=== PATIENT | male | born 1970 | race African-American/Black ===

== ENCOUNTER 2017-08-10 17:24 | Inpatient (IN) | payer OTHER ==
--- NOTE | 2017-08-10 17:39 | PDOC ---
Rapid Medical Evaluation Time Seen by Provider: 08/10/17 17:39 Medical Evaluation: 08/10/17 17:39 I have performed a brief in-person evaluation of this patient. The patient presents with a chief complaint of: R foot "feels like ice", hx of DM but ran out of meds, hasn't taken "for a while", denies SOB/CP/palpitations, Pertinent physical exam findings: decreased temp to R foot compared to L, +calf tenderness, DP non palpable to R ft I have ordered the following: labs, US The patient will proceed to the ED for further evaluation. Discharge Disposition - Diagnosis Right leg pain - Referrals - Patient Instructions - Post Discharge Activity
[2017-08-10 18:00] LABS: BASO % 1.2 % (0-2.0); EOS % 1.1 % (0-4.5); HEMATOCRIT 38.3 % (35.4-49); LYMPH % 34.9 % (8-40); MCH 26.8 pg (25.7-33.7); MCHC 34.1 g/dl (32.0-35.9); MEAN CELL VOLUME 78.8 fl (80-96); MEAN PLT VOLUME 7.6 fl (7.5-11.1); NEUT % 54.8 % (42.8-82.8); PLATELET COUNT 473 K/MM3 (134-434); RBC 4.86 M/mm3 (4.00-5.60); RDW 13.4 % (11.9-15.9); WHITE BLOOD COUNT 10.7 K/mm3 (4.0-10.0)
--- NOTE | 2017-08-10 18:25 | PDOC ---
History of Present Illness - General History Source: Patient Exam Limitations: No Limitations - History of Present Illness Initial Comments: 08/10/17 18:42 The patient is 47 year old male, with a significant past medical history of diabetes(noncompliant with medications) and CAD(s/p stents), who presents to the emergency department with changes in sensation to the right foot since earlier this afternoon. The patient reports his right foot has been increasingly cold, numb, and occasionally painful since around 12:00 today. Patient reports a history of diabetes, and states he has not been taking his medications for a while, because he ran out. Patient denies any chest pain, shortness of breath, diaphoresis, palpitations, lower extremity edema. He denies any fever or chills. He denies any recent trauma to the right foot. He denies any recent travel or sick contacts. Allergies: NKDA Past Surgical History: None reported Social History: Current everyday smoker. No ETOH or recreational drug use. PCP: Dr. Roy <Mabel Campos - Last Filed: 08/10/17 18:42> <Lorie Ruiz - Last Filed: 08/12/17 12:50> - General Chief Complaint: Pain Stated Complaint: RT LEG PAIN Time Seen by Provider: 08/10/17 17:39 Past History <Mabel Campos - Last Filed: 08/10/17 18:42> - Past Medical History COPD: No Diabetes: Yes - Suicide/Smoking/Psychosocial Hx Smoking History: Current every day smoker Have you smoked in the past 12 months: Yes Number of Cigarettes Smoked Daily: 3 Information on smoking cessation initiated: No <Lorie Ruiz - Last Filed: 08/12/17 12:50> - Past Medical History Allergies/Adverse Reactions: Allergies Allergy/AdvReac Type Severity Reaction Status Date / Time No Known Allergies Allergy Verified 08/10/17 17:40 Home Medications: Ambulatory Orders NK [No Known Home Medication] 08/10/17 Review of Systems - Review of Systems Able to Perform ROS?: Yes Comments:: 08/10/17 18:43 GENERAL/CONSTITUTIONAL: No fever or chills. No weakness. HEAD, EYES, EARS, NOSE AND THROAT: No change in vision. No ear pain or discharge. No sore throat. CARDIOVASCULAR: No chest pain or shortness of breath. RESPIRATORY: No cough, wheezing, or hemoptysis. GASTROINTESTINAL: No nausea, vomiting, diarrhea or constipation. GENITOURINARY: No dysuria, frequency, or change in urination. MUSCULOSKELETAL: Yes right foot numbness/coldness/pain. No joint or muscle swelling. No neck or back pain. SKIN: No rash NEUROLOGIC: No headache, vertigo, loss of consciousness, or change in strength/ sensation. ENDOCRINE: No increased thirst. No abnormal weight change. HEMATOLOGIC/LYMPHATIC: No anemia, easy bleeding, or history of blood clots. ALLERGIC/IMMUNOLOGIC: No hives or skin allergy. <Lavonne Camposomsierra - Last Filed: 08/10/17 18:42> *Physical Exam - Vital Signs Last Vital Signs Temp Pulse Resp BP Pulse Ox 98.4 F 121 H 17 159/102 99 08/10/17 17:40 08/10/17 17:40 08/10/17 17:40 08/10/17 17:40 08/10/17 17:40 <Mabel Campos - Last Filed: 08/10/17 18:42> - Vital Signs Last Vital Signs Temp Pulse Resp BP Pulse Ox 98.4 F 121 H 17 159/102 99 08/10/17 17:40 08/10/17 17:40 08/10/17 17:40 08/10/17 17:40 08/10/17 17:40 - Physical Exam Comments: GENERAL: Awake, alert, and fully oriented, in no acute distress HEAD: No signs of trauma EYES: PERRLA, EOMI, sclera anicteric, conjunctiva clear ENT: Auricles normal inspection, hearing grossly normal, nares patent, oropharynx clear without exudates. Moist mucosa NECK: Normal ROM, supple, no lymphadenopathy, JVD, or masses LUNGS: Breath sounds equal, clear to auscultation bilaterally. No wheezes, and no crackles HEART: Regular rate and rhythm, normal S1 and S2, no murmurs, rubs or gallops ABDOMEN: Soft, nontender, normoactive bowel sounds. No guarding, no rebound. No masses EXTREMITIES: R foot cool to palpation, thready DP pulse, normal cap refill. L foot warm, dec DP pulse. Normal range of motion, no edema. No clubbing or cyanosis. No cords,tenderness NEUROLOGICAL: Cranial nerves II through XII grossly intact. Normal speech, normal gait. Dec sensation to soles of feet B/L. SKIN: Warm, Dry, normal turgor, no rashes or lesions noted. <Lorie Ruiz - Last Filed: 08/12/17 12:50> ED Treatment Course - LABORATORY CBC & Chemistry Diagram: 08/10/17 17:51 08/10/17 17:51 - ADDITIONAL ORDERS Additional order review: Laboratory Results 08/10/17 17:51 Sodium 136 Potassium 4.1 Chloride 99 Carbon Dioxide 26 Anion Gap 11 BUN 14 Creatinine 1.2 Creat Clearance w eGFR > 60 Random Glucose 399 H* Calcium 9.7 Total Bilirubin 0.2 AST 8 L ALT 13 Alkaline Phosphatase 162 H Total Protein 8.0 Albumin 3.6 08/10/17 17:51 RBC 4.86 MCV 78.8 L MCHC 34.1 RDW 13.4 MPV 7.6 Neutrophils % 54.8 Lymphocytes % 34.9 Monocytes % 8.0 Eosinophils % 1.1 Basophils % 1.2 <Mabel Campos - Last Filed: 08/10/17 18:42> - LABORATORY CBC & Chemistry Diagram: 08/12/17 10:00 08/12/17 10:00 - ADDITIONAL ORDERS Additional order review: 08/10/17 17:51 RBC 4.86 MCV 78.8 L MCHC 34.1 RDW 13.4 MPV 7.6 Neutrophils % 54.8 Lymphocytes % 34.9 Monocytes % 8.0 Eosinophils % 1.1 Basophils % 1.2 <Lorie Ruiz - Last Filed: 08/12/17 12:50> Medical Decision Making - Medical Decision Making 08/10/17 19:[address] Obrien at 7pm shift change. Currently returning from vascular with report of arterial occlusion. Will start on heparin and consult with Dr. Chandler vascular surgery. <Lorie Ruiz - Last Filed: 08/12/17 12:50> *DC/Admit/Observation/Transfer - Attestations Scribe Attestion: 08/10/17 18:43 Documentation prepared by Mabel Campos, acting as medical office assistant for Lorie Ruiz MD. <Mabel Campos - Last Filed: 08/10/17 18:42> <Lorie Ruiz - Last Filed: 08/12/17 12:50> Diagnosis at time of Disposition: Right leg pain, Arterial occlusion - Discharge Dispostion Condition at time of disposition: Stable
[2017-08-10 18:26] LABS: ALBUMIN 3.6 g/dl (3.4-5.0); ALK PHOS 162 U/L (45-117); ANION GAP 11 (8-16); BILIRUBIN,TOTAL 0.2 mg/dL (0.2-1.0); BLOOD UREA NITROGEN 14 mg/dL (7-18); CALCIUM 9.7 mg/dL (8.5-10.1); CHLORIDE 99 mmol/L (98-107); CO2 26 mmol/L (21-32); CREATININE 1.2 mg/dL (0.7-1.3); POTASSIUM 4.1 mmol/L (3.5-5.1); SGOT/AST 8 U/L (15-37); SGPT/ALT 13 U/L (12-78); SODIUM 136 mmol/L (136-145)
[2017-08-10 18:33] LABS: GLUCOSE,RANDOM 399 mg/dL (74-106)
[2017-08-10] MEDS ORDERED: SODIUM CHLORIDE 1,000 ML IV STA (18:33)
[2017-08-10 19:01] LABS: INR 0.96 (0.82-1.09); PROTHROMBIN TIME (PATIENT) 10.8 SEC (9.98-11.88)
[2017-08-10 19:03] LABS: ACTIVATED PTT 26.8 SECONDS (26.9-34.4)
--- NOTE | 2017-08-10 19:27 | PDOC ---
*Physical Exam - Vital Signs Last Vital Signs Temp Pulse Resp BP Pulse Ox 98.4 F 121 H 17 159/102 99 08/10/17 17:40 08/10/17 17:40 08/10/17 17:40 08/10/17 17:40 08/10/17 17:40 <Beau Obrien - Last Filed: 08/10/17 19:26> - Vital Signs Last Vital Signs Temp Pulse Resp BP Pulse Ox 98.4 F 121 H 17 159/102 99 08/10/17 17:40 08/10/17 17:40 08/10/17 17:40 08/10/17 17:40 08/10/17 17:40 <Reilly Bolaños - Last Filed: 08/10/17 23:37> ED Treatment Course - LABORATORY CBC & Chemistry Diagram: 08/10/17 17:51 08/10/17 17:51 - ADDITIONAL ORDERS Additional order review: Laboratory Results 08/10/17 08/10/17 17:51 17:51 PT with INR 10.80 INR 0.96 PTT (Actin FS) 26.8 L Sodium 136 Potassium 4.1 Chloride 99 Carbon Dioxide 26 Anion Gap 11 BUN 14 Creatinine 1.2 Creat Clearance w eGFR > 60 Random Glucose 399 H* Calcium 9.7 Total Bilirubin 0.2 AST 8 L ALT 13 Alkaline Phosphatase 162 H Total Protein 8.0 Albumin 3.6 08/10/17 17:51 RBC 4.86 MCV 78.8 L MCHC 34.1 RDW 13.4 MPV 7.6 Neutrophils % 54.8 Lymphocytes % 34.9 Monocytes % 8.0 Eosinophils % 1.1 Basophils % 1.2 <Beau Obrien - Last Filed: 08/10/17 19:26> - LABORATORY CBC & Chemistry Diagram: 08/10/17 17:51 08/10/17 17:51 - ADDITIONAL ORDERS Additional order review: Laboratory Results 08/10/17 08/10/17 17:51 17:51 PT with INR 10.80 INR 0.96 PTT (Actin FS) 26.8 L Sodium 136 Potassium 4.1 Chloride 99 Carbon Dioxide 26 Anion Gap 11 BUN 14 Creatinine 1.2 Creat Clearance w eGFR > 60 Random Glucose 399 H* Calcium 9.7 Total Bilirubin 0.2 AST 8 L ALT 13 Alkaline Phosphatase 162 H Total Protein 8.0 Albumin 3.6 08/10/17 17:51 RBC 4.86 MCV 78.8 L MCHC 34.1 RDW 13.4 MPV 7.6 Neutrophils % 54.8 Lymphocytes % 34.9 Monocytes % 8.0 Eosinophils % 1.1 Basophils % 1.2 <Reilly Bolaños - Last Filed: 08/10/17 23:37> Medical Decision Making - Medical Decision Making 08/10/17 19:[address] Orona placed. Awaiting call back. 08/10/17 19:31 Dr. Orona called into emergency department. Case discussed. Agreed to admit. 08/10/17 21:[address] Morgan Chandler placed. Awaiting call back. [address] [facility] [address] [place] [address] Phone: [phone] Fax: Email: [email or web address] Patient Information: : 1970 Name: AYESHA GERMAN Sex: M Study Description: CT CTA CHEST ABDOMEN PELVIS LE RUNOFF Modality: CT Location: [facility] Referring Physician: MACHO VOGT Comments: Ant Fay MD wrote on Aug 10, 2017 at 11:32 PM: Referring Physician: MACHO HODGE This finding was verbally communicated to Beau Obrien doctor on TueAugust 10 2017 23:28:11 EST. THIS DOCUMENT HAS BEEN ELECTRONICALLY SIGNED Ant Fay MD 08/10/2017 23:29 EST M.D. Please call [facility] [phone] with questions. Ant Fay MD Comments: Ant Fay MD wrote on Aug 10, 2017 at 11:24 PM: Referring Physician: MACHO VOGT Patient Name: MAXI HODGE CONFIDENTIALITY NOTICE: This information is intended only for the use of the recipient(s) named above. If you are not the intended recipient, or a person responsible for delivering it to the intended recipient, you are hereby notified that any disclosure, copying, distribution or use of any of the information contained in or attached to this transmission is STRICTLY PROHIBITED. If you have received this transmission in error, please immediately notify [facility] and destroy the original transmission and its attachments without saving them in any manner [address] [place] [address] [place] [address] Phone: [phone] Fax: Email: [email or web address] Patient Information: : 1970 Name: AYESHA GERMAN Sex: M Study Description: CT CTA CHEST ABDOMEN PELVIS LE RUNOFF Modality: CT Location: [facility] Referring Physician: MACHO VOGT THIS IS A PRELIMINARY REPORT FROM [facility] DATE OF SERVICE: 2017-08-10 21:23:03 IMAGES: Is EXAM: ABDOMEN CTA AOR \T\ BLE RUNOFF HISTORY: Arterial occlusion in the right leg COMPARISON: None. FINDINGS: Abdomen Liver: Normal Spleen: Normal Pancreas: Normal Gallbladder: Normal Stomach: Normal CONFIDENTIALITY NOTICE: This information is intended only for the use of the recipient(s) named above. If you are not the intended recipient, or a person responsible for delivering it to the intended recipient, you are hereby notified that any disclosure, copying, distribution or use of any of the information contained in or attached to this transmission is STRICTLY PROHIBITED. If you have received this transmission in error, please immediately notify [facility] and destroy the original transmission and its attachments without saving them in any manner [address] [place] [address] [place] [address] Phone: [phone] Fax: Email: [email or web address] Patient Information: : 1970 Name: AYESHA GERMAN Sex: M Study Description: CT CTA CHEST ABDOMEN PELVIS LE RUNOFF Modality: CT Location: [facility] Referring Physician: MACHO VOGT Small bowel: Normal Large bowel: Normal Appendix: Normal Adrenals:Normal Kidneys There are some areas of low attenuation in the right kidney with cortical thinning: Vascular: Normal Lymphatic: Normal Peritoneal: No free peritoneal air or fluid Pelvis: Prostate: normal Rectum: Normal Bladder: Normal CONFIDENTIALITY NOTICE: This information is intended only for the use of the recipient(s) named above. If you are not the intended recipient, or a person responsible for delivering it to the intended recipient, you are hereby notified that any disclosure, copying, distribution or use of any of the information contained in or attached to this transmission is STRICTLY PROHIBITED. If you have received this transmission in error, please immediately notify [facility] and destroy the original transmission and its attachments without saving them in any manner [address] [facility] [address] [place] [address] Phone: [phone] Fax: Email: [email or web address] Patient Information: : 1970 Name: AYESHA GERMAN Sex: M Study Description: CT CTA CHEST ABDOMEN PELVIS LE RUNOFF Modality: CT Location: [facility] Referring Physician: MACHO VOGT The inferior thorax: Normal General: Skeletal: Normal Abdominal wall: Normal Lower extremity runoff: There is an abrupt occlusion in the right popliteal artery is. There is some reconstitution of the posterior tibial artery distal to the trifurcation. This extends across the ankle to the plantar surface of the foot. There is some reconstitution of the anterior tibial artery at the level of the midcalf extending to the level of the ankle but does not extend to the dorsal foot. There is some reconstitution right peroneal artery There is normal enhancement of the left common femoral artery, superficial femoral artery, profundal femoral artery, popliteal artery, anterior tibial artery, dorsalis pedis artery, posterior tibial artery, and peroneal artery IMPRESSION: Vascular occlusion in the right popliteal artery with distal reconstitution of the posterior tibial, anterior tibial, and peroneal artery CONFIDENTIALITY NOTICE: This information is intended only for the use of the recipient(s) named above. If you are not the intended recipient, or a person responsible for delivering it to the intended recipient, you are hereby notified that any disclosure, copying, distribution or use of any of the information contained in or attached to this transmission is STRICTLY PROHIBITED. If you have received this transmission in error, please immediately notify [facility] and destroy the original transmission and its attachments without saving them in any manner [address] [facility] [address] [place] [address] Phone: [phone] Fax: Email: [email or web address] Patient Information: : 1970 Name: AYESHA GERMAN Sex: M Study Description: CT CTA CHEST ABDOMEN PELVIS LE RUNOFF Modality: CT Location: [facility] Referring Physician: MACHO VOGT There is diminished enhancement in the right kidney suggesting scarring, or complex cysts. There may be a component of renal inflammation and correlation with history and urinalysis is recommended THIS DOCUMENT HAS BEEN ELECTRONICALLY SIGNED Ant Fay MD 08/10/2017 23:22 EST M.D. Please call [facility] [phone] with questions. Ant Fay MD Clinicians - Please contact [facility] with further questions at [phone] Patients - Please contact your Ordering Provider with questions. CONFIDENTIALITY NOTICE: This information is intended only for the use of the recipient(s) named above. If you are not the intended recipient, or a person responsible for delivering it to the intended recipient, you are hereby notified that any disclosure, copying, distribution or use of any of the information contained in or attached to this transmission is STRICTLY PROHIBITED. If you have received this transmission in error, please immediately notify [facility] and destroy the original transmission and its attachments without saving them in any manner <Reilly Bolaños - Last Filed: 08/10/17 23:37> *DC/Admit/Observation/Transfer - Discharge Dispostion Admit: Yes <Beau Obrien - Last Filed: 08/10/17 19:26> - Attestations Scribe Attestion: 08/10/17 19:31 Documentation prepared by Reilly Bolaños, acting as medical corps officer for Beau Obrien DO. <Reilly Bolaños - Last Filed: 08/10/17 23:37> Diagnosis at time of Disposition: Right leg pain, Arterial occlusion - Discharge Dispostion Condition at time of disposition: Stable
[2017-08-10] MEDS ORDERED: HEPARIN NA (PORCINE) 5,000 UNITS/ML 1ML VIAL IVPUSH PRN ×2 (19:28)
[2017-08-10] MEDS ORDERED: HEPARIN - 25,000 UNIT in SODIUM CHLORIDE 495 ML IV SCH (19:30)
[2017-08-10] MEDS ORDERED: HEPARIN NA (PORCINE) 5,000 UNITS/ML 1ML VIAL ONE (21:10)
[2017-08-10] MEDS ORDERED: HEPARIN INFUSION - 25,000 UNITS/500 ML INFUS.BAG IVPB ONE (21:10)
--- NOTE | 2017-08-10 21:41 | HP ---
CHIEF COMPLAINT: Cold R foot x 1 day PCP: Dr Marcos Roy HISTORY OF PRESENT ILLNESS: 47 year old male, with a signif PMHx (non compliant on meds) of diabetes, CAD(s/p stents), HTN, presenting with cold R foot x this afternoon. Patient noticed coldness of his R foot after waking up from a nap this afternoon. Prior in the day while he was walking, he had intermittent claudication- with painful 10/10, R calf and mid trevizo, painful enough to prevent him from walking, that was relieved by rest. Pt had only one episode of the pain, no rest pain, and was able to return home and take the nap. No change in sensations, no weakness of any part of the body, no facial drop, no prior episodes of similar pain in the past, no chest pain, SOB, loss of consciousness. No dysuria, fever, abdominal pain or change in bowel habits. Pt is a current smoker. ER course was notable for: (1) Duplex R lower extremity: occluded mid to distal popliteal a (2) CTA abd with aorta runoff (3)WBC-10.7, glucose-399, (4) coags, CMP, CBC, CXR (5) EKG- sinus tachycardia, ventricular rate- 116, QTc-458 Recent Travel: PAST MEDICAL HISTORY: diabetes (last insulin 1year ago), CAD(s/p stents), HTN PAST SURGICAL HISTORY: Social History: Smoking: Current smoker (cutting down to)-3cigs/day, smoked 10cigs/day x 25 years Alcohol:Social Drugs: Occasional PCP ( last use 2 months) Family History: Mother -60yrs-HTN Father at 40yrs-had HTN Allergies No Known Allergies Allergy (Verified 08/10/17 17:40) HOME MEDICATIONS: Home Medications Medication Instructions Recorded NK [No Known Home Medication] 08/10/17 REVIEW OF SYSTEMS CONSTITUTIONAL: Absent: fever, chills, diaphoresis, generalized weakness, malaise, loss of appetite, weight change HEENT: Absent: rhinorrhea, nasal congestion, throat pain, throat swelling, difficulty swallowing, mouth swelling, ear pain, eye pain, visual changes CARDIOVASCULAR: Absent: chest pain, syncope, palpitations, irregular heart rate, lightheadedness , peripheral edema RESPIRATORY: Absent: cough, shortness of breath, dyspnea with exertion, orthopnea, wheezing, stridor, hemoptysis GASTROINTESTINAL: Absent: abdominal pain, abdominal distension, nausea, vomiting, diarrhea, constipation, melena, hematochezia GENITOURINARY: Absent: dysuria, frequency, urgency, hesitancy, hematuria, flank pain, genital pain MUSCULOSKELETAL: Absent: myalgia, arthralgia, joint swelling, back pain, neck pain SKIN: Absent: rash, itching, pallor HEMATOLOGIC/IMMUNOLOGIC: Absent: easy bleeding, easy bruising, lymphadenopathy, frequent infections ENDOCRINE: Absent: unexplained weight gain, unexplained weight loss, heat intolerance, cold intolerance NEUROLOGIC: Absent: headache, focal weakness or paresthesias, dizziness, unsteady gait, seizure, mental status changes, bladder or bowel incontinence PSYCHIATRIC: Absent: anxiety, depression, suicidal or homicidal ideation, hallucinations. PHYSICAL EXAMINATION Vital Signs - 24 hr 08/10/17 17:40 Temperature 98.4 F Pulse Rate 121 H Respiratory 17 Rate Blood Pressure 159/102 O2 Sat by Pulse 99 Oximetry (%) GENERAL: Awake, alert, and fully oriented, in no acute distress. HEAD: Normal with no signs of trauma. EYES: Pupils equal, round and reactive to light, extraocular movements intact, sclera anicteric, conjunctiva clear. EARS, NOSE, THROAT: Ears normal, nares patent, oropharynx clear without exudates. Moist mucous membranes. NECK: Normal range of motion, supple without lymphadenopathy, JVD, or masses. LUNGS: Breath sounds equal, clear to auscultation bilaterally. No wheezes, and no crackles. HEART: Tachycardic- S1 and S2 . ABDOMEN: Obese, Soft, nontender, not distended, normoactive bowel sounds, no guarding, no rebound, no masses. MUSCULOSKELETAL: Normal range of motion at all joints. No bony deformities or tenderness. No CVA tenderness. UPPER EXTREMITIES: 2+ pulses, warm, well-perfused. No peripheral edema. LOWER EXTREMITIES: DP pulse on L 2+, warm LLE, sensation+. No calf tenderness/ No peripheral edema/Calluses and onychomycosis bilaterally.R lower extremity DP pulses hard to palpate (occasional 1-), Cool RLE from midshin and mid calf to toes. No loss of sensation. NEUROLOGICAL: Cranial nerves II-XII intact. Normal speech. Normal gait. PSYCHIATRIC: Cooperative. Good eye contact. Laboratory Results - last 24 hr 08/10/17 08/10/17 08/10/17 17:51 17:51 17:51 WBC 10.7 H RBC 4.86 Hgb 13.0 Hct 38.3 MCV 78.8 L MCH 26.8 MCHC 34.1 RDW 13.4 Plt Count 473 H MPV 7.6 Neutrophils % 54.8 Lymphocytes % 34.9 Monocytes % 8.0 Eosinophils % 1.1 Basophils % 1.2 PT with INR 10.80 INR 0.96 PTT (Actin FS) 26.8 L Sodium 136 Potassium 4.1 Chloride 99 Carbon Dioxide 26 Anion Gap 11 BUN 14 Creatinine 1.2 Creat Clearance w eGFR > 60 Random Glucose 399 H* Calcium 9.7 Total Bilirubin 0.2 AST 8 L ALT 13 Alkaline Phosphatase 162 H Total Protein 8.0 Albumin 3.6 ASSESSMENT/PLAN: 47 year old male, with a signif PMHx (non compliant on meds) of diabetes, CAD(s /p stents), HTN, presenting with cold R foot x 1 day R popliteal arterial occlusion: RLE duplex-occluded mid to distal popliteal a CTA abd w ith aorta run off- pending reading Heparin bolus - 80u/mg/kg stat Heparin -18u/hr Goal PTT 60-80 Vascular consult-Dr Chandler on board Type and screen PT/INR, PTT EKG- sinus tachycardia, ventricular rate- 116, QTc-458 Pain mx as needed Intermittent limb exams Gentle iv hydration @75/hr NPO Lipid panel, Hgb A1c Lipitor 40mg daily HS DM: Hyperglycemic- 399 Iv levemir 10u stat ISS- ACHS BGM-ACHS IV normal saline @ 75/hr Hgb A1c DM education HTN: metoprolol 25mg bid to begin in am lisinopril 5mg daily to begin in am CAD s/p stents: Hold ASA metoprolol 25mg bid to begin in am Tobacco use: Nicotine patch 7TD Counseling FEN: Normal saline @ 75/hr Monitor lytes and replete as needed NPO for likely procedure PPx: Heparin drip Dispo: Med surg Visit type - Emergency Visit Emergency Visit: Yes ED Registration Date: 08/10/17 Care time: The patient presented to the Emergency Department on the above date and was hospitalized for further evaluation of their emergent condition. - New Patient This patient is new to me today: Yes Date on this admission: 08/11/17 - Critical Care Critical Care patient: No Hospitalist Screening - Colonoscopy Questionnaire Colonoscopy Questionnaire: Colonoscopy Questionnaire - Patient: 50 - 75 years old and never had a screening colonoscopy: Unknown History of colon or rectal polyps, or CA: Unknown History of IBD, Crohn's disease or UC: Unknown History of abdominal radiation therapy as a child: Unknown - Relative: 1 with colon or rectal CA, or polyps at age 60 or younger: Unknown Colon or rectal CA diagnosed at age 45 or younger: Unknown Multiple relatives with colon or rectal CA: Unknown - Outcome: Screening Result: Negative Screen
[2017-08-10] MEDS ORDERED: INSULIN DETEMIR 100 UNITS/ML MDV SQ ONE ×2 (22:45→22:47)
[2017-08-10] MEDS ORDERED: SODIUM CHLORIDE 1,000 ML IV SCH (22:45)
--- NOTE | 2017-08-10 22:46 | PN ---
Teaching Attending Note Name of Resident: Ankita Carr ATTENDING PHYSICIAN STATEMENT I saw and evaluated the patient. Chart, data, imaging reviewed. I reviewed the resident's note and discussed the case with the resident. I agree with the resident's findings and plan as documented. SUBJECTIVE: 47 year old male, current smoker, with a significant past medical history of diabetes(noncompliant with medications) and CAD(s/ stents), presented with leg pain with movement since around noon on 08/10. Patient does no have pain at rest. He has not been taking his meds for a while. No history of clots. OBJECTIVE: Last Vital Signs Temp Pulse Resp BP Pulse Ox 98.4 F 121 H 17 159/102 99 08/10/17 17:40 08/10/17 17:40 08/10/17 17:40 08/10/17 17:40 08/10/17 17:40 General- nad, aaox3, nontoxic heent- moist oral mucosa, no sinus tenderness neck-supple, no jvd cv-s1+s2+ borderline tachy chest- cta b/l abdomen- obese, bs+, nt ext- RLE cool compared to left, DP pulse palpable but weaker than left, sensation intact in b/l lower ext, no infections in feet noted Skin- no rashes noted Abnormal Lab Results 08/10/17 08/10/17 08/10/17 17:51 17:51 17:51 WBC 10.7 H MCV 78.8 L Plt Count 473 H PTT (Actin FS) 26.8 L Random Glucose 399 H* AST 8 L Alkaline Phosphatase 162 H duplex scan of lower ext arteries- right mid to distal popliteal a. occluded CTA of lower ext -pending ASSESSMENT AND PLAN: #Acute right mid to distal popliteal a. occlusion. Good sensation in foot and nonpainful at rest. -admit to med/surg -send lactate level -stat vascular surgery consult - Dr. Chandler informed over the phone -heparin bolus IVP and start heparin drip -hold ASA -statin -NPO -type and screen, PTT, PT -pain control -gentle IVF hydration #Diabetes Mellitus -uncontrolled, now with hyperglycemia -basal insulin -gentle insulin sliding scale (patient is NPO) -A1c -lipid panel -family life educator #CAD - s/p 2 stents -hold ASA for now in anticipation for vascular surgery -low dose Bblocker and ACEi -DVT ppx- patient is on heparin drip
[2017-08-11] MEDS: INSULIN SLIDING SCALE (NOVOLOG) 1 VIAL SQ SCH ×5 (01:01→21:45)
[2017-08-11 03:33] VITALS: BMI 36.8
[2017-08-11 07:50] LABS: BASO % 0.8 % (0-2.0); EOS % 1.6 % (0-4.5); HEMATOCRIT 37.2 % (35.4-49); HEMOGLOBIN 12.4 GM/dL (11.7-16.9); LYMPH % 33.5 % (8-40); MCH 26.6 pg (25.7-33.7); MCHC 33.3 g/dl (32.0-35.9); MEAN CELL VOLUME 79.9 fl (80-96); MEAN PLT VOLUME 7.8 fl (7.5-11.1); MONO % 9.9 % (3.8-10.2); NEUT % 54.2 % (42.8-82.8); PLATELET COUNT 450 K/MM3 (134-434); RBC 4.65 M/mm3 (4.00-5.60); RDW 13.4 % (11.9-15.9); WHITE BLOOD COUNT 8.6 K/mm3 (4.0-10.0)
[2017-08-11 08:07] LABS: INR 0.99 (0.82-1.09); PROTHROMBIN TIME (PATIENT) 11.2 SEC (9.98-11.88)
[2017-08-11 08:10] LABS: ACTIVATED PTT 26.1 SECONDS (26.9-34.4)
[2017-08-11 08:26] LABS: ALBUMIN 3.1 g/dl (3.4-5.0); ANION GAP 7 (8-16); BILIRUBIN,TOTAL 0.4 mg/dL (0.2-1.0); BLOOD UREA NITROGEN 12 mg/dL (7-18); CALCIUM 8.3 mg/dL (8.5-10.1); CHLORIDE 101 mmol/L (98-107); CO2 29 mmol/L (21-32); GLUCOSE,RANDOM 250 mg/dL (74-106); PHOSPHOROUS 4.2 mg/dL (2.5-4.9); POTASSIUM 3.9 mmol/L (3.5-5.1); SGOT/AST 6 U/L (15-37); SGPT/ALT 9 U/L (12-78); SODIUM 137 mmol/L (136-145)
[2017-08-11 08:27] LABS: ALK PHOS 117 U/L (45-117); TOT PROT 6.8 g/dl (6.4-8.2)
[2017-08-11 08:42] LABS: CHOLESTEROL 165 mg/dL (50-200); HDL CHOLESTEROL 37 mg/dL (40-60); LDL CHOLESTEROL (ONLY SJRH) 108 mg/dL (5-100); TRIGLYCERIDES 143 mg/dL (35-160)
[2017-08-11] MEDS ORDERED: PT OWN MED DRAWER 7, Y5N ONE (09:11)
[2017-08-11] MEDS ORDERED: METOPROLOL TARTRATE 25 MG TABLET (FP) PO SCH (10:00)
[2017-08-11] MEDS ORDERED: LISINOPRIL 5 MG TABLET (FP) PO SCH (10:00)
[2017-08-11] MEDS ORDERED: NICOTINE 7 MG/24 HOURS TOPICAL PATCH TD SCH (10:00)
[2017-08-11] MEDS ORDERED: INSULIN (NOVOLOG) ASPART 100 UNITS/ML 10ML VIAL ONE (10:57)
--- NOTE | 2017-08-11 11:39 | EKG ---
Test Reason : Blood Pressure : / mmHG Vent. Rate : 116 BPM Atrial Rate : 116 BPM P-R Int : 142 ms QRS Dur : 088 ms QT Int : 330 ms P-R-T Axes : 060 -30 020 degrees QTc Int : 458 ms SINUS TACHYCARDIA LEFT AXIS DEVIATION LATERAL INFARCT , AGE UNDETERMINED ABNORMAL ECG NO PREVIOUS ECGS AVAILABLE Confirmed by JAZ OSBORN, AILYN ([id number]) on 08/11/2017 11:38:53 AM Referred By: Confirmed By:AILYN SEBASTIAN MD
[2017-08-11] MEDS ORDERED: HEPARIN NA (PORCINE) 5,000 UNITS/ML 1ML VIAL ONE (12:48)
[2017-08-11] MEDS ORDERED: LIDOCAINE HCL 1%, 10 MG/ML (20ML VIAL) ONE (12:48)
--- NOTE | 2017-08-11 12:57 | PN ---
Progress Note (short form) - Note Progress Note: Vascular Surgery pt seen and examined. Came in last night with RLE pain. Pt [place], and felt pain and his leg felt cold. He then decided to come into the ER. Pt is a 25 year smoker, smoking half a pack a day. He is a diabetic, but does not take any meds -- because he says he cant afford it anymore. Today his fasting blood sugar was 289. Pt's CTA shows popliteal artery occlusion in right leg. Could be thrombus vs occlusion. Explained to pt that he needs a angiogram, and might need thrombolysis if we find clot. Pt has stents in his heart , placed 4 years ago. Pt is non-compliant with his medications. He admits to that. Pt for angiogram today. Morgan garay DO
[2017-08-11] MEDS ORDERED: MIDAZOLAM HCL 2 MG/2 ML SINGLE DOSE VIAL ONE ×2 (13:25→13:29)
[2017-08-11] MEDS ORDERED: ceFAZolin SODIUM 1 GM VIAL IVPB ONE (13:29)
[2017-08-11] MEDS ORDERED: PROPOFOL 20 ML ONE ×3 (13:34)
[2017-08-11] MEDS ORDERED: HEPARIN INFUSION - 25,000 UNITS/500 ML INFUS.BAG IVPB ONE (13:52)
[2017-08-11] MEDS ORDERED: ALTEPLASE (CATHFLO) 25 MG in SODIUM CHLORIDE 250 ML CVP ONE ×3 (14:30→17:00)
[2017-08-11] MEDS ORDERED: IOHEXOL 300 MG/ML INFUS..BTL IV ONE (14:30)
[2017-08-11] MEDS ORDERED: LIDOCAINE HCL 1%, 10 MG/ML (20ML VIAL) PNB ONE (14:32)
--- NOTE | 2017-08-11 15:03 | OP ---
Operative Note - Note: Operative Date: 08/11/17 Pre-Operative Diagnosis: RLE thrombosis Operation: Aortogram, RLE angiogram, infusion of TPA Findings: Thrombus in popliteal artery, TP trunk, tibial arteries Post-Operative Diagnosis: Same as Pre-op Surgeon: Morgan Chandler Anesthesia: Fractional Estimated Blood Loss (mls): 25 Operative Report Dictated: Yes
[2017-08-11] MEDS ORDERED: ONDANSETRON 4 MG/2 ML VIAL IVPUSH PRN (15:12)
[2017-08-11] MEDS ORDERED: LACTATED RINGERS SOLUTION 1,000 ML IV SCH (15:15)
[2017-08-11] MEDS ORDERED: SODIUM CHLORIDE 1,000 ML IV STA (15:46)
[2017-08-11] MEDS: SODIUM CHLORIDE 1,000 ML IV SCH (16:00)
[2017-08-11] MEDS ORDERED: SODIUM CHLORIDE 1,000 ML IV SCH (16:45)
[2017-08-11] MEDS ORDERED: SODIUM CHLORIDE IVPB SCH (17:00)
[2017-08-11] MEDS ORDERED: HEPARIN - 25,000 UNIT in SODIUM CHLORIDE 495 ML IV SCH (17:00)
[2017-08-11] MEDS ORDERED: ALTEPLASE IVPB SCH (17:00)
[2017-08-11] MEDS: MORPHINE SULFATE 10 MG/1 ML *VIAL IVPUSH PRN ×2 (18:04→21:36)
--- NOTE | 2017-08-11 19:44 | PN ---
Progress Note (short form) - Note Progress Note: Received pt from OR previously in the afternoon. Discussed pt with Dr. Chandler. Pt is post-angiography found to have R popliteal occlusion. Decision to have TPA made and pt to stay in unit at least overnight. Currently pt is doing well with only complaint of mild pain. Brief PE: Gen: NAD, awake, alert, oriented x3 Lungs: CTA b/l, no rales/rhonchi/wheezes. No accessory muscle use Cards: RRR, S1 and S2 normal without murmurs appreciated Abd: Soft, NT/ND, no guarding, hypo-normoactive bowel sounds, L groin catheter noted (C/D/I site) EXT: No edema noted b/l, L foot DP and tibialis pulse 2+ by palpation, warm with cap refill <2sec R foot tibialis pulse 2+ by palpation, absent DP pulse by palpation AND doppler, slighly cool with skin intact, cap refill about 3sec Neuro: nonfocal exam. Normal speech, facial symmetry, strength 5/5 grossly with limit of R leg motion due to pain, sensation grossly intact b/l Skin: No rashes or lesions appreciated A/P Spoke about plan with Dr. Chandler --CBC, PT/INR, PTT, Fibrinogen, BMP 18:00, 08/12/17 0200h, and 08/12/17 1000h --TPA 10cc/hr of 25mg in 250cc NS (total 1mg per hour) STANDING --Heparin gtt 10 cc/hr (total 500U per hour) --DO NOT TITRATE THESE DOSES --STOP if fibrinogen <100, and notify MD --NS@50cc/hr --NPO --Morphine 4mg q4h PRN pain 7-10; Morphine 2mg q4h PRN pain 4-6 or breakthrough --Anticipate increased pain management needs as TPA begins to dissolve occlusion --Monitor neuro status for any change --Will eventually need echo to r/o thrombus/atrial abnormalities for emboli source (order placed, but anticipate being performed tomorrow after acute events stabilize) Case discussed with Dr. Christy and Dr. Ramesh Le, DO - IM PGY-1
[2017-08-11 19:58] LABS: HEMATOCRIT 36.8 % (35.4-49); HEMOGLOBIN 12.2 GM/dL (11.7-16.9); MCH 26.5 pg (25.7-33.7); MCHC 33.1 g/dl (32.0-35.9); MEAN CELL VOLUME 80.1 fl (80-96); MEAN PLT VOLUME 7.8 fl (7.5-11.1); PLATELET COUNT 407 K/MM3 (134-434); RBC 4.59 M/mm3 (4.00-5.60); RDW 13.7 % (11.9-15.9); WHITE BLOOD COUNT 12.6 K/mm3 (4.0-10.0)
[2017-08-11 20:11] LABS: INR 1.04 (0.82-1.09); PROTHROMBIN TIME (PATIENT) 11.8 SEC (9.98-11.88)
[2017-08-11 20:14] LABS: ACTIVATED PTT 23.7 SECONDS (26.9-34.4)
[2017-08-11 20:28] LABS: ANION GAP 12 (8-16); BLOOD UREA NITROGEN 10 mg/dL (7-18); CALCIUM 8.2 mg/dL (8.5-10.1); CHLORIDE 102 mmol/L (98-107); CO2 23 mmol/L (21-32); CREATININE 0.9 mg/dL (0.7-1.3); GLUCOSE,RANDOM 264 mg/dL (74-106); MAGNESIUM 1.9 mg/dL (1.8-2.4); PHOSPHOROUS 3.9 mg/dL (2.5-4.9); POTASSIUM 3.9 mmol/L (3.5-5.1); SODIUM 137 mmol/L (136-145)
[2017-08-11] MEDS: CHLORHEXIDINE GLUCONATE 4% CLEANSER FOR DECOLONIZATION TP SCH (21:27)
[2017-08-11] MEDS: METOPROLOL TARTRATE 25 MG TABLET (FP) PO SCH (21:27)
[2017-08-11] MEDS: ATORVASTATIN CA 40 MG TABLET (FP) PO SCH (21:27)
[2017-08-11] MEDS ORDERED: MORPHINE SULFATE 10 MG/1 ML *VIAL IVPUSH ONE (21:28)
[2017-08-11] MEDS: MUPIROCIN 2% TOPICAL OINTMENT FOR DECOLONIZATION NS SCH (21:28)
[2017-08-11] MEDS ORDERED: oxyCODONE HCL 5 MG TABLET PO ONE (21:28)
[2017-08-11] MEDS ORDERED: oxyCODONE HCL 5 MG TABLET ONE (21:33)
[2017-08-11] MEDS ORDERED: ACETAMINOPHEN 325 MG TABLET (FP) ONE (21:33)
[2017-08-11] MEDS: INSULIN DETEMIR 100 UNITS/ML MDV SQ SCH (21:43)
[2017-08-11] MEDS ORDERED: INSULIN DETEMIR 100 UNITS/ML MDV SQ SCH (22:00)
[2017-08-11] MEDS ORDERED: ATORVASTATIN CA 40 MG TABLET (FP) PO SCH (22:00)
[2017-08-11] MEDS ORDERED: ALBUTEROL SO4 0.083% IH SOL 2.5 MG/3 ML VIAL.NEB. NEB PRN (23:33)
[2017-08-12] MEDS: MORPHINE SULFATE 10 MG/1 ML *VIAL IVPUSH PRN ×5 (02:37→20:46)
[2017-08-12 02:49] LABS: HEMATOCRIT 37.4 % (35.4-49); HEMOGLOBIN 12.6 GM/dL (11.7-16.9); INR 1.07 (0.82-1.09); MCH 26.7 pg (25.7-33.7); MCHC 33.6 g/dl (32.0-35.9); MEAN CELL VOLUME 79.2 fl (80-96); MEAN PLT VOLUME 7.4 fl (7.5-11.1); PLATELET COUNT 378 K/MM3 (134-434); PROTHROMBIN TIME (PATIENT) 12.1 SEC (9.98-11.88); RBC 4.72 M/mm3 (4.00-5.60); RDW 13.4 % (11.9-15.9); WHITE BLOOD COUNT 10.7 K/mm3 (4.0-10.0)
[2017-08-12 02:52] LABS: ACTIVATED PTT 26.1 SECONDS (26.9-34.4)
[2017-08-12 02:56] LABS: ANION GAP 11 (8-16); BLOOD UREA NITROGEN 9 mg/dL (7-18); CALCIUM 8.9 mg/dL (8.5-10.1); CHLORIDE 102 mmol/L (98-107); CO2 25 mmol/L (21-32); CREATININE 0.9 mg/dL (0.7-1.3); GLUCOSE,RANDOM 240 mg/dL (74-106); POTASSIUM 4.3 mmol/L (3.5-5.1); SODIUM 138 mmol/L (136-145)
[2017-08-12] MEDS: INSULIN SLIDING SCALE (NOVOLOG) 1 VIAL SQ SCH ×4 (06:12→21:51)
[2017-08-12 06:18] LABS: HEMATOCRIT 36.7 % (35.4-49); HEMOGLOBIN 12.3 GM/dL (11.7-16.9); MCH 26.8 pg (25.7-33.7); MCHC 33.5 g/dl (32.0-35.9); MEAN CELL VOLUME 80.1 fl (80-96); MEAN PLT VOLUME 7.8 fl (7.5-11.1); PLATELET COUNT 368 K/MM3 (134-434); RBC 4.58 M/mm3 (4.00-5.60); RDW 13.6 % (11.9-15.9); WHITE BLOOD COUNT 9.3 K/mm3 (4.0-10.0)
--- NOTE | 2017-08-12 08:20 | CONSULT ---
Consult Consult Specialty:: ICU - History of Present Illness History of Present Illness: 47 YOM with h/o poorly controlled DM (no meds, fasting BG 289), 25 year smoker ( 1/2 PPD), CAD (stents 4 years ago) presented to ED with RLE pain with walking, leg felt cold. ED and Hospital Course CTA showed RLE popliteal artery occlusion vs. thrombus Had aortogram and RLE angiogram 08/11/[address] Chandler under fractional anesthesia, EBL 25cc Found thrombus in popliteal artery, TP trunk, tibial arteries Given tPA infusion On arrival to ICU patient stable and c/o mild pain OVERNIGHT EVENTS Patient stable in the ICU Continuing Alteplase protocol RLE becoming cooler, DP pulses lost Increased Alteplase dose, NPO, going back to OR this PM SUBJECTIVE Patient denies new complaints, minimal pain currently at rest, no CP or SOB. LINES/TUBES/DRAINS Left groin catheter placed 08/11/17 - History Source History Provided By: Patient Limitations to Obtaining History: No Limitations - Alcohol/Substance Use Hx Alcohol Use: Yes - Smoking History Smoking history: Current every day smoker Have you smoked in the past 12 months: Yes Aproximately how many cigarettes per day: 3 Home Medications - Allergies Allergies/Adverse Reactions: Allergies Allergy/AdvReac Type Severity Reaction Status Date / Time No Known Allergies Allergy Verified 08/10/17 17:40 - Home Medications Home Medications: Ambulatory Orders NK [No Known Home Medication] 08/10/17 Review of Systems - Review of Systems Constitutional: reports: No Symptoms. denies: Fever, Loss of Appetite, Malaise , Weakness Eyes: reports: No Symptoms. denies: Recent Change in Vision HENT: reports: No Symptoms Neck: reports: No Symptoms Cardiovascular: reports: Other (RLE claudication). denies: Chest Pain, Edema, Palpitations, Shortness of Breath Respiratory: reports: No Symptoms Gastrointestinal: reports: No Symptoms Genitourinary: reports: No Symptoms Musculoskeletal: reports: Extremity Pain (RLE with walking) Integumentary: reports: Other (RLE skin cool) Neurological: reports: Numbness (RLE) Psychiatric: reports: No Symptoms Physical Exam Vital Signs: Vital Signs Temperature 98.2 F 08/12/17 02:00 Pulse Rate 104 H 08/12/17 07:25 Respiratory Rate 18 08/12/17 07:25 Blood Pressure 167/104 08/12/17 07:25 O2 Sat by Pulse Oximetry (%) 99 08/12/17 07:35 Constitutional: Yes: Well Nourished, No Distress, Calm, Other (Patient is adult male in no distress who is alert, oriented, appropriate answers) Eyes: Yes: WNL, Conjunctiva Clear, EOM Intact HENT: Yes: WNL, Atraumatic, Normocephalic Neck: Yes: WNL, Supple, Trachea Midline Cardiovascular: Yes: WNL, Regular Rate and Rhythm. No: Murmur Respiratory: Yes: WNL, Regular, CTA Bilaterally. No: Diminished, SOB, Tachypnea , Wheezes Gastrointestinal: Yes: WNL, Normal Bowel Sounds, Soft. No: Palpable Mass, Pulsatile Mass, Tenderness Renal/: Yes: WNL Extremities: Yes: Other (LLE PT and DP pulses 2+ palpated, WWP and cap refil <2 seconds, sensation intact RLE PT pulse 2+ by palpation RLE DP absent by palpation and Doppler RLE distally cooler temp than LLE (warm proximally and then transitions to cooler temp around mid-calf) Extremities no edema or color difference [id number]) Edema: No Integumentary: No: Bruising, Erythema, Rash Wound/Incision: Yes: Clean/Dry, Dressing Dry and Intact Neurological: Yes: WNL, Alert, Oriented, Numbness (RLE) ...Motor Strength: WNL Psychiatric: Yes: WNL, Alert, Oriented Labs: CBC, BMP 08/12/17 05:55 08/12/17 02:00 Imaging - Results Chest X-ray: Report Reviewed, Image Reviewed, Other (Mild cardiomegaly allowing for magnification. Correlation with PA and lateral view of the chest is needed for further evaluation of the heart size. No acute lung disease is present.) Cat Scan: Report Reviewed, Image Reviewed, Other (CT ANGIOGRAM OF THE ABDOMEN AND PELVIS WITH BILATERAL LOWER EXTREMITY RUNOFFS. Occluded right popliteal artery at the level of the knee joint through the TPT and proximal aspect of the frontal popliteal arteries with reconstitution of flow in the proximal right CRIMINAL LEGAL ASSISTANT and mid right CHRISTOPHER and PA which demonstrate diminutive flow with predominant flow to the foot provided by the right CRIMINAL LEGAL ASSISTANT. Bilateral renal cortical infarcts. Conglomerate findings are suggestive of embolic disease.) Ultrasound: Report Reviewed, Image Reviewed, Other (Duplex/Arteries RLE: Occluded mid to distal popliteal artery) Assessment/Plan 47 YOM with h/o poorly controlled DM (no meds, fasting BG 289), 25 year smoker ( 1/2 PPD), CAD (stents 4 years ago) presented to ED with RLE pain with walking, leg felt cold. CV #RLE arterial occlusion, acute. -Dr. Chandler following -To OR this afternoon (NPO now) -Continue tPA, heparin, morphine per Dr. Chandler's protocol -Echo while inpatient -Minitor CBCD, Coags, Fibrinogen, BMP per Dr. Chandler's timing requests -If fibrinogen drops <100, stop the heparin ggt -Do not titrate doses of heparin or tPA -Monitor neuro status for any change #CAD with h/o stents. -Echo this admission ENDO #Poorly controlled DM. -Diabetic diet when taken off NPO -Insulin SQ SS FEN -NPO for now for OR -DM diet -Monitor CMP, Mg, Phos -Replete lytes as needed -NS@50cc/hr PPX DVT: Currently tPA and heparin GI: None currently PT: When able
--- NOTE | 2017-08-12 08:35 | PN ---
Progress Note (short form) - Note Progress Note: POD #1 Alert. Still c/o of RLE pain but states it has improved slightly. He's currently on a heprin drip at 500/hr and [facility] Denies n/v/f/c, CP, palpitations, SOB Last Vital Signs Temp Pulse Resp BP Pulse Ox 98.2 F 104 H 18 143/104 99 03// 02:00 08/12/17 08:00 08/12/17 08:00 08/12/17 08:00 08/12/17 07:35 CBC, BMP 08/12/17 05:55 08/12/17 02:00 INR, PTT INR 1.07 (0.82-1.09) 08/12/ 02:00 Fibrinogen 365.0 mg/dL (238-498) 08/12/17 02:00 Gen: nad RLE: warm from groin to just proximal tib/fib then transitions to cool all way to toes. Foot remains cool. He has a dopplerable PT. Absent DP. Pain with movement of toes. POD #1 s/p Aortogram, RLE angiogram, infusion of TPA. Intra-op Findings: Thrombus in popliteal artery, TP trunk, tibial arteries NPO / IVF GI / DVT ppx Cont Hep ggt [facility] on schedule for repeat angio today
[2017-08-12] MEDS ORDERED: ALTEPLASE (CATHFLO) 25 MG in SODIUM CHLORIDE 250 ML CVP ONE (09:15)
[2017-08-12] MEDS: LISINOPRIL 5 MG TABLET (FP) PO SCH (09:20)
[2017-08-12] MEDS: NICOTINE 7 MG/24 HOURS TOPICAL PATCH TD SCH (09:20)
[2017-08-12] MEDS: METOPROLOL TARTRATE 25 MG TABLET (FP) PO SCH ×2 (09:20→21:51)
[2017-08-12] MEDS: MUPIROCIN 2% TOPICAL OINTMENT FOR DECOLONIZATION NS SCH ×2 (09:20→21:50)
--- NOTE | 2017-08-12 09:20 | PN ---
Progress Note (short form) - Note Progress Note: Anesthesia Post op Pt seen and examined S;Alert and awake O; Vital Signs Temperature 98.2 F 08/12/17 02:00 Pulse Rate 104 H 08/12/17 08:00 Respiratory Rate 18 08/12/17 08:00 Blood Pressure 143/104 08/12/17 08:00 O2 Sat by Pulse Oximetry (%) 99 08/12/17 07:35 CBC, BMP 08/12/17 05:55 08/12/17 02:00 A/P: Current Active Problems Arterial occlusion (Acute) Right leg pain (Acute) s/p angiogram Hyperstensive tachycardic Doing well post op Continue current care Rolf So MD
[2017-08-12 10:14] LABS: HEMATOCRIT 36.7 % (35.4-49); HEMOGLOBIN 12.3 GM/dL (11.7-16.9); MCH 26.7 pg (25.7-33.7); MCHC 33.5 g/dl (32.0-35.9); MEAN CELL VOLUME 79.8 fl (80-96); MEAN PLT VOLUME 7.3 fl (7.5-11.1); PLATELET COUNT 354 K/MM3 (134-434); RDW 13.7 % (11.9-15.9); WHITE BLOOD COUNT 9.5 K/mm3 (4.0-10.0)
[2017-08-12 10:23] LABS: INR 1.15 (0.82-1.09)
[2017-08-12 10:29] LABS: ANION GAP 8 (8-16); BLOOD UREA NITROGEN 9 mg/dL (7-18); CALCIUM 8.2 mg/dL (8.5-10.1); CHLORIDE 104 mmol/L (98-107); CO2 26 mmol/L (21-32); CREATININE 0.8 mg/dL (0.7-1.3); GLUCOSE,RANDOM 212 mg/dL (74-106); SODIUM 138 mmol/L (136-145)
--- NOTE | 2017-08-12 12:23 | PN ---
Teaching Attending Note Name of Resident: Gely Salas ATTENDING PHYSICIAN STATEMENT I saw and evaluated the patient. I reviewed the resident's note and discussed the case with the resident. I agree with the resident's findings and plan as documented. SUBJECTIVE: Patient seen and examined in the ICU. Awake and alert. Remains on IV tPA. For OR for repeat angiography. Intake & Output 08/09/17 08/10/17 08/11/17 08/12/17 23:59 23:59 23:59 23:59 Intake Total 700 826 Output Total 200 1400 Balance 500 -574 Weight 230 lb 242 lb Last Vital Signs Temp Pulse Resp BP Pulse Ox 98.4 F 97 H 18 136/95 99 08/12/17 10:00 08/12/17 12:00 08/12/17 12:00 08/12/17 12:00 08/12/17 07:35 Active Medications Albuterol Sulfate (Ventolin 0.083% Nebulizer Soln -) 1 amp NEB Q4H PRN PRN Reason: SHORT OF BREATH/WHEEZING Atorvastatin Calcium (Lipitor -) 40 mg PO HS [facility] Last Admin: 08/11/17 21:27 Dose: 40 mg Chlorhexidine Gluconate (Hibiclens For Decolonization -) 1 applic TP HS [facility] Last Admin: 08/11/17 21:27 Dose: 1 applic Fentanyl (Sublimaze Injection -) 50 mcg IVPUSH [id number] PRN PRN Reason: PAIN-PACU ORDER X 4 DOSES ONLY Sodium Chloride (Normal Saline -) 1,000 mls @ 50 mls/hr IV ASDIR [facility] Last Admin: 08/11/17 16:00 Dose: 50 mls/hr Heparin Sodium (Porcine) 25, (000 unit/ Sodium Chloride) 500 mls @ 10 mls/hr IV TITR [facility] PRN Reason: Protocol Last Admin: 08/11/17 16:00 Dose: 10 mls/h, 10 mls/hr Alteplase, Recombinant 25 mg/ (Sodium Chloride) 250 mls @ 20 mls/hr CVP ONCE ONE Stop: 08/12/17 21:44 Last Admin: 08/12/17 09:13 Dose: 20 mls/hr Insulin Aspart (Novolog Vial Sliding Scale -) 1 vial SQ ACHS [facility] PRN Reason: Protocol Last Admin: 08/12/17 11:16 Dose: Not Given Insulin Detemir (Levemir Vial) 20 units SQ HS [facility] Last Admin: 08/11/17 21:43 Dose: 20 units Lisinopril (Prinivil) 5 mg PO DAILY [facility] Last Admin: 08/12/17 09:20 Dose: 5 mg Metoprolol Tartrate (Lopressor -) 25 mg PO BID [facility] Last Admin: 08/12/17 09:20 Dose: 25 mg Morphine Sulfate (Morphine Injection -) 2 mg IVPUSH Q4H PRN PRN Reason: PAIN LEVEL 4 - 6 Last Admin: 08/12/17 07:25 Dose: 2 mg Morphine Sulfate (Morphine Injection -) 5 mg IVPUSH Q4H PRN PRN Reason: PAIN LEVEL 7 - 10 Last Admin: 08/12/17 08:26 Dose: 5 mg Mupirocin (Bactroban Ointment (For Decolonization) -) 1 applic NS BID [facility] Stop: 08/16/17 21:59 Last Admin: 08/12/17 09:20 Dose: 1 applic Nicotine (Nicoderm Patch -) 7 mg TD DAILY [facility] Last Admin: 08/12/17 09:20 Dose: 7 mg Ondansetron HCl (Zofran Injection) 4 mg IVPUSH Q6H PRN PRN Reason: NAUSEA AND/OR VOMITING Physical Exam GENERAL: Awake, alert, and fully oriented, in no acute distress. HEAD: Normal with no signs of trauma. EYES: Pupils equal, round and reactive to light, extraocular movements intact, sclera anicteric, conjunctiva clear. EARS, NOSE, THROAT: Ears normal, nares patent, oropharynx clear without exudates. Moist mucous membranes. NECK: Normal range of motion, supple without lymphadenopathy, JVD, or masses. LUNGS: Breath sounds equal, clear to auscultation bilaterally. No wheezes, and no crackles. HEART: Tachycardic- S1 and S2 . ABDOMEN: Obese, Soft, nontender, not distended, normoactive bowel sounds, no guarding, no rebound, no masses. MUSCULOSKELETAL: Normal range of motion at all joints. No bony deformities or tenderness. No CVA tenderness. UPPER EXTREMITIES: 2+ pulses, warm, well-perfused. No peripheral edema. LOWER EXTREMITIES: Decreased DP pulse on Right. No calf tenderness, peripheral edema NEUROLOGICAL: Non-focal PSYCHIATRIC: Cooperative. Good eye contact. Laboratory Results - last 24 hr 08/11/17 08/11/17 08/11/17 15:10 18:00 18:00 WBC 12.6 H D RBC 4.59 Hgb 12.2 Hct 36.8 MCV 80.1 MCH 26.5 MCHC 33.1 RDW 13.7 Plt Count 407 MPV 7.8 PT with INR 11.80 INR 1.04 PTT (Actin FS) 23.7 L Fibrinogen 452.0 Sodium Potassium Chloride Carbon Dioxide Anion Gap BUN Creatinine POC Glucometer 230 Random Glucose Calcium Phosphorus Magnesium 08/11/17 08/11/17 08/12/17 19:45 21:26 02:00 WBC 10.7 H RBC 4.72 Hgb 12.6 Hct 37.4 MCV 79.2 L MCH 26.7 MCHC 33.6 RDW 13.4 Plt Count 378 MPV 7.4 L PT with INR INR PTT (Actin FS) Fibrinogen Sodium 137 Potassium 3.9 Chloride 102 Carbon Dioxide 23 D Anion Gap 12 BUN 10 Creatinine 0.9 POC Glucometer [phone] Random Glucose 264 H Calcium 8.2 L Phosphorus 3.9 Magnesium 1.9 08/12/17 08/12/17 08/12/17 02:00 02:00 05:16 WBC RBC Hgb Hct MCV MCH MCHC RDW Plt Count MPV PT with INR 12.10 H INR 1.07 PTT (Actin FS) 26.1 L Fibrinogen 365.0 Sodium 138 Potassium 4.3 Chloride 102 Carbon Dioxide 25 Anion Gap 11 BUN 9 Creatinine 0.9 POC Glucometer [phone] Random Glucose 240 H Calcium 8.9 Phosphorus Magnesium 08/12/17 08/12/17 08/12/17 05:55 05:55 10:00 WBC 9.3 9.5 RBC 4.58 4.60 Hgb 12.3 12.3 Hct 36.7 36.7 MCV 80.1 79.8 L MCH 26.8 26.7 MCHC 33.5 33.5 RDW 13.6 13.7 Plt Count 368 354 MPV 7.8 7.3 L PT with INR INR PTT (Actin FS) 26.6 L Fibrinogen Sodium Potassium Chloride Carbon Dioxide Anion Gap BUN Creatinine POC Glucometer Random Glucose Calcium Phosphorus Magnesium 08/12/17 08/12/17 08/12/17 10:00 10:00 11:13 WBC RBC Hgb Hct MCV MCH MCHC RDW Plt Count MPV PT with INR 13.00 H INR 1.15 H PTT (Actin FS) 28.0 Fibrinogen 273.0 D Sodium 138 Potassium 4.0 Chloride 104 Carbon Dioxide 26 Anion Gap 8 BUN 9 Creatinine 0.8 POC Glucometer [phone] Random Glucose 212 H Calcium 8.2 L Phosphorus Magnesium Assessment/Plan 47 M, poorly controlled DM, 25 year 1/2 PPD smoker, CAD (PCI 4 years ago) Occluded mid to distal popilteal artery For OR today for repeat Angiography Noted Alteplase hourly dosage was increased IV heparin drip O2 as needed IVF Follow labs Pain control Incentive Spirometry Dr Galeano Critical care time spent in reviewing chart, evaluating patient and formulating plan - 36 minutes.
[2017-08-12] MEDS ORDERED: MIDAZOLAM HCL 2 MG/2 ML SINGLE DOSE VIAL ONE (17:15)
[2017-08-12] MEDS ORDERED: LIDOCAINE HCL 1%, 10 MG/ML (20ML VIAL) ONE (17:21)
[2017-08-12] MEDS ORDERED: HEPARIN NA (PORCINE) 5,000 UNITS/ML 1ML VIAL ONE ×2 (17:21→18:13)
[2017-08-12] MEDS ORDERED: ceFAZolin SODIUM 1 GM VIAL IVPB ONE (17:58)
[2017-08-12] MEDS ORDERED: SODIUM CHLORIDE 0.9% P/F 10 ML VIAL IJ ONE (18:02)
[2017-08-12] MEDS ORDERED: ceFAZolin SODIUM 1 GM VIAL ONE (18:02)
[2017-08-12] MEDS ORDERED: ROCURONIUM BROMIDE 50 MG/5 ML VIAL ONE (18:11)
[2017-08-12] MEDS ORDERED: KETOROLAC TROMETHAMINE 30 MG/1 ML VIAL ONE (18:11)
[2017-08-12] MEDS ORDERED: LIDOCAINE HCL/PF 2% SDV 5ML VIAL ONE (18:11)
[2017-08-12] MEDS ORDERED: DEXAMETHASONE SOD PHOSPHATE 4 MG/1 ML VIAL ONE (18:11)
[2017-08-12] MEDS ORDERED: SUCCINYLCHOLINE CHLORIDE 200 MG/10 ML VIAL ONE (18:13)
[2017-08-12] MEDS ORDERED: NEOSTIGMINE METHYLSULFATE 0.5 MG/ML - 10 ML MDV ONE (18:14)
[2017-08-12] MEDS ORDERED: GLYCOPYRROLATE 0.2 MG/1 ML VIAL ONE (18:15)
[2017-08-12] MEDS ORDERED: METOPROLOL TARTRATE 5 MG/5 ML VIAL ONE ×2 (18:33→18:52)
[2017-08-12] MEDS ORDERED: HEPARIN NA (PORCINE) 5,000 UNITS/ML 1ML VIAL IVPUSH PRN (19:12)
[2017-08-12] MEDS: SODIUM CHLORIDE 1,000 ML IV SCH (19:15)
[2017-08-12] MEDS: HEPARIN - 25,000 UNIT in SODIUM CHLORIDE 495 ML IV SCH (19:15)
--- NOTE | 2017-08-12 19:20 | OP ---
Operative Note - Note: Operative Date: 08/12/17 Pre-Operative Diagnosis: RLE ischemia Operation: RLE angiogram, tibial artery angioplasty, thrombolysis Findings: tibial artery clot, scattered. Post-Operative Diagnosis: Same as Pre-op Surgeon: Morgan Chandler Anesthesia: Fractional Estimated Blood Loss (mls): 50 Operative Report Dictated: Yes
[2017-08-12] MEDS: ATORVASTATIN CA 40 MG TABLET (FP) PO SCH (21:50)
[2017-08-12] MEDS: INSULIN DETEMIR 100 UNITS/ML MDV SQ SCH (21:50)
[2017-08-12] MEDS: CHLORHEXIDINE GLUCONATE 4% CLEANSER FOR DECOLONIZATION TP SCH (21:50)
[2017-08-12 22:04] LABS: HEMATOCRIT 43.2 % (35.4-49); HEMOGLOBIN 14.3 GM/dL (11.7-16.9); MCH 26.6 pg (25.7-33.7); MEAN CELL VOLUME 80.8 fl (80-96); MEAN PLT VOLUME 8.8 fl (7.5-11.1); PLATELET COUNT 365 K/MM3 (134-434); RBC 5.35 M/mm3 (4.00-5.60); RDW 14.1 % (11.9-15.9); WHITE BLOOD COUNT 11.9 K/mm3 (4.0-10.0)
[2017-08-12 22:36] LABS: BASO % 0.7 % (0-2.0); EOS % 0.9 % (0-4.5); HEMATOCRIT 37.6 % (35.4-49); HEMOGLOBIN 12.6 GM/dL (11.7-16.9); LYMPH % 15.2 % (8-40); MCH 26.8 pg (25.7-33.7); MCHC 33.6 g/dl (32.0-35.9); MEAN CELL VOLUME 79.6 fl (80-96); MEAN PLT VOLUME 7.2 fl (7.5-11.1); MONO % 10.4 % (3.8-10.2); NEUT % 72.8 % (42.8-82.8); PLATELET COUNT 345 K/MM3 (134-434); RBC 4.72 M/mm3 (4.00-5.60); RDW 13.6 % (11.9-15.9); WHITE BLOOD COUNT 10.5 K/mm3 (4.0-10.0)
[2017-08-12 23:07] LABS: ANION GAP 10 (8-16); BLOOD UREA NITROGEN 11 mg/dL (7-18); CALCIUM 7.9 mg/dL (8.5-10.1); CHLORIDE 102 mmol/L (98-107); CO2 25 mmol/L (21-32); POTASSIUM 4.2 mmol/L (3.5-5.1); SODIUM 137 mmol/L (136-145)
[2017-08-12 23:08] LABS: GLUCOSE,RANDOM 327 mg/dL (74-106)
[2017-08-13] MEDS ORDERED: HEMOQUE CONTROL SOLUTION ONE (01:04)
[2017-08-13] MEDS: MORPHINE SULFATE 10 MG/1 ML *VIAL IVPUSH PRN ×3 (05:21→22:45)
[2017-08-13 06:39] LABS: HEMATOCRIT 37.3 % (35.4-49); HEMOGLOBIN 12.4 GM/dL (11.7-16.9); MCH 26.8 pg (25.7-33.7); MCHC 33.3 g/dl (32.0-35.9); MEAN CELL VOLUME 80.3 fl (80-96); MEAN PLT VOLUME 7.6 fl (7.5-11.1); PLATELET COUNT 377 K/MM3 (134-434); RBC 4.64 M/mm3 (4.00-5.60); RDW 13.7 % (11.9-15.9); WHITE BLOOD COUNT 9.4 K/mm3 (4.0-10.0)
[2017-08-13] MEDS: INSULIN SLIDING SCALE (NOVOLOG) 1 VIAL SQ SCH ×4 (06:40→22:45)
[2017-08-13 07:03] LABS: MAGNESIUM 2.1 mg/dL (1.8-2.4); PHOSPHOROUS 4.2 mg/dL (2.5-4.9)
[2017-08-13 07:05] LABS: ALBUMIN 2.7 g/dl (3.4-5.0); ANION GAP 7 (8-16); BLOOD UREA NITROGEN 9 mg/dL (7-18); CHLORIDE 102 mmol/L (98-107); CO2 27 mmol/L (21-32); GLUCOSE,RANDOM 253 mg/dL (74-106); POTASSIUM 4.1 mmol/L (3.5-5.1); SGPT/ALT 65 U/L (12-78); SODIUM 136 mmol/L (136-145)
[2017-08-13 07:07] LABS: ALK PHOS 108 U/L (45-117); BILIRUBIN,TOTAL 0.4 mg/dL (0.2-1.0); CREATININE 0.9 mg/dL (0.7-1.3); TOT PROT 6.5 g/dl (6.4-8.2)
[2017-08-13 07:09] LABS: SGOT/AST 431 U/L (15-37)
[2017-08-13] MEDS: NICOTINE 7 MG/24 HOURS TOPICAL PATCH TD SCH (11:00)
[2017-08-13] MEDS: HEPARIN NA (PORCINE) 5,000 UNITS/ML 1ML VIAL IVPUSH PRN (11:21)
[2017-08-13] MEDS: HEPARIN - 25,000 UNIT in SODIUM CHLORIDE 495 ML IV SCH ×2 (11:21→22:43)
[2017-08-13] MEDS: LISINOPRIL 5 MG TABLET (FP) PO SCH (11:22)
[2017-08-13] MEDS: MUPIROCIN 2% TOPICAL OINTMENT FOR DECOLONIZATION NS SCH ×2 (11:22→22:44)
[2017-08-13] MEDS: METOPROLOL TARTRATE 25 MG TABLET (FP) PO SCH ×2 (11:22→22:44)
--- NOTE | 2017-08-13 11:58 | PN ---
Progress Note (short form) - Note Progress Note: PULMONARY/CCM Pt seen and examined in the ICU. Leg pain improving. No shortness of breath or chest pain. Last Vital Signs Temp Pulse Resp BP Pulse Ox 98.6 F 94 H 21 130/81 95 08/13/17 10:14 08/13/17 10:14 08/13/17 10:14 08/13/17 10:14 08/12/17 21:00 Intake & Output 08/10/17 08/11/17 08/12/17 08/13/17 23:59 23:59 23:59 23:59 Intake Total 700 1886 824 Output Total 200 1850 1075 Balance 500 36 -251 Weight 104.326 kg 109.769 kg Gen: NAD at rest Heart: RRR Lung: decreased breath sounds at the bases Abd: soft, nontender Ext: no edema, warm well perfused CBC, BMP 08/13/17 06:20 08/13/17 06:20 Active Medications Albuterol Sulfate (Ventolin 0.083% Nebulizer Soln -) 1 amp NEB Q4H PRN PRN Reason: SHORT OF BREATH/WHEEZING Atorvastatin Calcium (Lipitor -) 40 mg PO HS [facility] Last Admin: 08/12/17 21:50 Dose: 40 mg Chlorhexidine Gluconate (Hibiclens For Decolonization -) 1 applic TP HS [facility] Last Admin: 08/12/17 21:50 Dose: 1 applic Fentanyl (Sublimaze Injection -) 50 mcg IVPUSH [id number] PRN PRN Reason: PAIN-PACU ORDER X 4 DOSES ONLY Heparin Sodium (Porcine) (Heparin -) 1,000 unit IVPUSH PRN PRN PRN Reason: Heparin Heparin Sodium (Porcine) (Heparin -) 5,000 unit IVPUSH PRN PRN PRN Reason: Heparin Last Admin: 08/13/17 11:21 Dose: 5,000 unit Sodium Chloride (Normal Saline -) 1,000 mls @ 50 mls/hr IV ASDIR [facility] Last Admin: 08/12/17 19:15 Dose: 50 mls/hr Heparin Sodium (Porcine) 25, (000 unit/ Sodium Chloride) 500 mls @ 20 mls/hr IV TITR MARY[facility]; 1,000 UNIT/HR PRN Reason: Protocol Last Admin: 08/13/17 11:21 Dose: 1,050 unit/hr, 21 mls/hr Insulin Aspart (Novolog Vial Sliding Scale -) 1 vial SQ ACHS [facility] PRN Reason: Protocol Last Admin: 08/13/17 06:40 Dose: 6 units Insulin Detemir (Levemir Vial) 20 units SQ HS [facility] Last Admin: 08/12/17 21:50 Dose: 20 units Lisinopril (Prinivil) 5 mg PO DAILY [facility] Last Admin: 08/13/17 11:22 Dose: 5 mg Metoprolol Tartrate (Lopressor -) 25 mg PO BID [facility] Last Admin: 08/13/17 11:22 Dose: 25 mg Morphine Sulfate (Morphine Injection -) 2 mg IVPUSH Q4H PRN PRN Reason: PAIN LEVEL 4 - 6 Last Admin: 08/12/17 07:25 Dose: 2 mg Morphine Sulfate (Morphine Injection -) 5 mg IVPUSH Q4H PRN PRN Reason: PAIN LEVEL 7 - 10 Last Admin: 08/13/17 05:21 Dose: 5 mg Mupirocin (Bactroban Ointment (For Decolonization) -) 1 applic NS BID [facility] Stop: 08/16/17 21:59 Last Admin: 08/13/17 11:22 Dose: 1 applic Nicotine (Nicoderm Patch -) 7 mg TD DAILY [facility] Last Admin: 08/12/17 09:20 Dose: 7 mg Ondansetron HCl (Zofran Injection) 4 mg IVPUSH Q6H PRN PRN Reason: NAUSEA AND/OR VOMITING A/P RLE Ischemia/PAD Popliteal Artery Thrombus s/p aortogram/tPA CAD HTN DM Smoker - continue heparin gtt - pain control - pulse checks - statin, beta rashaad - can monitor on floor if ok with surgery
--- NOTE | 2017-08-13 16:54 | PN ---
Progress Note, Physician Chief Complaint: day #1 s/p LE angiogram/angioplasty - Current Medication List Current Medications: Active Medications Albuterol Sulfate (Ventolin 0.083% Nebulizer Soln -) 1 amp NEB Q4H PRN PRN Reason: SHORT OF BREATH/WHEEZING Atorvastatin Calcium (Lipitor -) 40 mg PO HS [facility] Last Admin: 08/12/17 21:50 Dose: 40 mg Chlorhexidine Gluconate (Hibiclens For Decolonization -) 1 applic TP [facility] Last Admin: 08/12/17 21:50 Dose: 1 applic Fentanyl (Sublimaze Injection -) 50 mcg IVPUSH [id number] PRN PRN Reason: PAIN-PACU ORDER X 4 DOSES ONLY Heparin Sodium (Porcine) (Heparin -) 1,000 unit IVPUSH PRN PRN PRN Reason: Heparin Heparin Sodium (Porcine) (Heparin -) 5,000 unit IVPUSH PRN PRN PRN Reason: Heparin Last Admin: 08/13/17 11:21 Dose: 5,000 unit Sodium Chloride (Normal Saline -) 1,000 mls @ 50 mls/hr IV ASDIR [facility] Last Admin: 08/12/17 19:15 Dose: 50 mls/hr Heparin Sodium (Porcine) 25, (000 unit/ Sodium Chloride) 500 mls @ 20 mls/hr IV TITR MARYJO; 1,000 UNIT/HR PRN Reason: Protocol Last Admin: 08/13/17 11:21 Dose: 1,050 unit/hr, 21 mls/hr Insulin Aspart (Novolog Vial Sliding Scale -) 1 vial SQ ACHS [facility] PRN Reason: Protocol Last Admin: 08/13/17 06:40 Dose: 6 units Insulin Detemir (Levemir Vial) 20 units SQ [facility] Last Admin: 08/12/17 21:50 Dose: 20 units Lisinopril (Prinivil) 5 mg PO DAILY [facility] Last Admin: 08/13/17 11:22 Dose: 5 mg Metoprolol Tartrate (Lopressor -) 25 mg PO BID [facility] Last Admin: 08/13/17 11:22 Dose: 25 mg Morphine Sulfate (Morphine Injection -) 2 mg IVPUSH Q4H PRN PRN Reason: PAIN LEVEL 4 - 6 Last Admin: 08/13/17 15:20 Dose: 2 mg Morphine Sulfate (Morphine Injection -) 5 mg IVPUSH Q4H PRN PRN Reason: PAIN LEVEL 7 - 10 Last Admin: 08/13/17 05:21 Dose: 5 mg Mupirocin (Bactroban Ointment (For Decolonization) -) 1 applic NS BID [facility] Stop: 08/16/17 21:59 Last Admin: 08/13/17 11:22 Dose: 1 applic Nicotine (Nicoderm Patch -) 7 mg TD DAILY [facility] Last Admin: 08/12/17 09:20 Dose: 7 mg Ondansetron HCl (Zofran Injection) 4 mg IVPUSH Q6H PRN PRN Reason: NAUSEA AND/OR VOMITING - Objective Vital Signs: Vital Signs Temperature 98.3 F 08/13/17 14:49 Pulse Rate 106 H 08/13/17 14:49 Respiratory Rate 19 08/13/17 14:49 Blood Pressure 125/73 08/13/17 14:49 O2 Sat by Pulse Oximetry (%) 95 08/13/17 09:00 Labs: CBC, BMP 08/13/17 06:20 08/13/17 06:20 INR, PTT INR 1.15 (0.82-1.09) H 08/12/17 10:00 Fibrinogen 273.0 mg/dL (238-498) D 08/12/17 10:00 Assessment/Plan Leg pain improved today s/p angioplasty last night under MAC anesthesia. No apparent anesthetic issues/complications. Continue current care.
[2017-08-13] MEDS: SODIUM CHLORIDE 1,000 ML IV SCH (17:58)
[2017-08-13] MEDS: ATORVASTATIN CA 40 MG TABLET (FP) PO SCH (22:44)
[2017-08-13] MEDS: CHLORHEXIDINE GLUCONATE 4% CLEANSER FOR DECOLONIZATION TP SCH (22:44)
[2017-08-13] MEDS: INSULIN DETEMIR 100 UNITS/ML MDV SQ SCH (22:44)
[2017-08-14] MEDS: HEPARIN NA (PORCINE) 5,000 UNITS/ML 1ML VIAL IVPUSH PRN (04:24)
[2017-08-14] MEDS ORDERED: PT OWN MED DRAWER 7, Y5N ONE ×2 (06:27→09:11)
[2017-08-14 06:35] LABS: BASO % 0.7 % (0-2.0); EOS % 0.8 % (0-4.5); HEMATOCRIT 34.5 % (35.4-49); HEMOGLOBIN 11.5 GM/dL (11.7-16.9); LYMPH % 18.6 % (8-40); MCH 26.6 pg (25.7-33.7); MCHC 33.2 g/dl (32.0-35.9); MEAN CELL VOLUME 80.1 fl (80-96); MEAN PLT VOLUME 8.1 fl (7.5-11.1); MONO % 13.5 % (3.8-10.2); NEUT % 66.4 % (42.8-82.8); PLATELET COUNT 353 K/MM3 (134-434); RBC 4.31 M/mm3 (4.00-5.60); RDW 13.8 % (11.9-15.9); WHITE BLOOD COUNT 11.4 K/mm3 (4.0-10.0)
[2017-08-14 07:05] LABS: CHLORIDE 101 mmol/L (98-107); POTASSIUM 3.8 mmol/L (3.5-5.1); SODIUM 137 mmol/L (136-145)
[2017-08-14 07:10] LABS: ANION GAP 15 (8-16); BLOOD UREA NITROGEN 7 mg/dL (7-18); CALCIUM 8.5 mg/dL (8.5-10.1); CO2 21 mmol/L (21-32); CREATININE 0.8 mg/dL (0.7-1.3); GLUCOSE,RANDOM 273 mg/dL (74-106); MAGNESIUM 2.2 mg/dL (1.8-2.4); PHOSPHOROUS 3.1 mg/dL (2.5-4.9)
[2017-08-14] MEDS: INSULIN SLIDING SCALE (NOVOLOG) 1 VIAL SQ SCH ×4 (07:38→21:23)
[2017-08-14] MEDS: NICOTINE 7 MG/24 HOURS TOPICAL PATCH TD SCH (09:23)
[2017-08-14] MEDS: LISINOPRIL 5 MG TABLET (FP) PO SCH (09:23)
[2017-08-14] MEDS: METOPROLOL TARTRATE 25 MG TABLET (FP) PO SCH ×2 (09:23→21:19)
[2017-08-14] MEDS: MUPIROCIN 2% TOPICAL OINTMENT FOR DECOLONIZATION NS SCH ×2 (09:42→21:23)
[2017-08-14] MEDS: SODIUM CHLORIDE 1,000 ML IV SCH (21:10)
[2017-08-14] MEDS: HEPARIN - 25,000 UNIT in SODIUM CHLORIDE 495 ML IV SCH (21:11)
[2017-08-14] MEDS: ATORVASTATIN CA 40 MG TABLET (FP) PO SCH (21:19)
[2017-08-14] MEDS: INSULIN DETEMIR 100 UNITS/ML MDV SQ SCH (21:22)
[2017-08-14] MEDS: CHLORHEXIDINE GLUCONATE 4% CLEANSER FOR DECOLONIZATION TP SCH (21:23)
[2017-08-15] MEDS ORDERED: PT OWN MED DRAWER 7, Y5N ONE (01:42)
[2017-08-15] MEDS: HEPARIN - 25,000 UNIT in SODIUM CHLORIDE 495 ML IV SCH ×3 (02:32→20:35)
[2017-08-15 05:51] LABS: HEMATOCRIT 32.6 % (35.4-49); MCH 26.9 pg (25.7-33.7); MCHC 33.8 g/dl (32.0-35.9); MEAN CELL VOLUME 79.8 fl (80-96); MEAN PLT VOLUME 7.8 fl (7.5-11.1); PLATELET COUNT 392 K/MM3 (134-434); RBC 4.09 M/mm3 (4.00-5.60); RDW 13.7 % (11.9-15.9); WHITE BLOOD COUNT 10.6 K/mm3 (4.0-10.0)
[2017-08-15] MEDS: INSULIN SLIDING SCALE (NOVOLOG) 1 VIAL SQ SCH ×4 (06:29→21:26)
[2017-08-15] MEDS: HEPARIN NA (PORCINE) 5,000 UNITS/ML 1ML VIAL IVPUSH PRN ×2 (08:20→17:00)
[2017-08-15] MEDS: LISINOPRIL 5 MG TABLET (FP) PO SCH (11:09)
[2017-08-15] MEDS: NICOTINE 7 MG/24 HOURS TOPICAL PATCH TD SCH (11:09)
[2017-08-15] MEDS: METOPROLOL TARTRATE 25 MG TABLET (FP) PO SCH ×2 (11:09→21:24)
[2017-08-15] MEDS: MUPIROCIN 2% TOPICAL OINTMENT FOR DECOLONIZATION NS SCH ×2 (11:10→21:24)
[2017-08-15] MEDS: SODIUM CHLORIDE 1,000 ML IV SCH (17:33)
--- NOTE | 2017-08-15 19:12 | PN ---
Progress Note (short form) - Note Progress Note: Vascular Surgery Pt seen and examined. Doing well. Right lower ext warm, good palpable PT pulse. Pt should get physical therapy. Please convert to coumadin due to clot in right leg. Morgan garay DO
--- NOTE | 2017-08-15 19:42 | PN ---
Progress Note (short form) - Note Progress Note: Discussed case with Dr. Chandler. Started patient on 5mg Coumadin. Rest as per primary team.
--- NOTE | 2017-08-15 19:54 | PN ---
Teaching Attending Note Name of Resident: Ankita Carr ATTENDING PHYSICIAN STATEMENT I saw and evaluated the patient. I reviewed the resident's note and discussed the case with the resident. I agree with the resident's findings and plan as documented. SUBJECTIVE: 47 yo M with DM (poorly controlled), 25 yo smoker 1 PPD, CAD (s/p stents) who presented with RLE pain and cold foot. Had CTA which showed R Pop. art. thrombus and was given TPA on 08/11/17/. On 08/12 pt. had RLE angio due to lost pulses and he had thrombolysis of tibial art. clot. States he feels well. No chest pain or pressure. No N, V,D. No fevers or chills. No chest pain or pressure. OBJECTIVE: Physical: VS: Vital Signs Period Temp Pulse Resp BP Sys/Miller Pulse Ox Last 24 Hr 97.6 F-99.2 F 101-112 18-22 114-150/70-86 98-98 GEN: NAD, Resting in bed, AA0X3 HEENT: NCAT, PERRL, Throat without erythema or exudates CARD: RRR S1, S2 RESP: CTAB ABD: BSx4, NTD to palpation EXT: Trace pitting edema, Pulses RLE +1/4, LLE +2/4, warm to palpation CBCD WBC 10.6 K/mm3 (4.0-10.0) H 08/15/17 05:15 RBC 4.09 M/mm3 (4.00-5.60) 08/15/17 05:15 Hgb 11.0 GM/dL (11.7-16.9) L 08/15/17 05:15 Hct 32.6 % (35.4-49) L 08/15/17 05:15 MCV 79.8 fl (80-96) L 08/15/17 05:15 MCHC 33.8 g/dl (32.0-35.9) 08/15/17 05:15 RDW 13.7 % (11.9-15.9) 08/15/17 05:15 Plt Count 392 K/MM3 (134-434) 08/15/17 05:15 MPV 7.8 fl (7.5-11.1) 08/15/17 05:15 CMP Sodium 137 mmol/L (136-145) 08/14/17 05:50 Potassium 3.8 mmol/L (3.5-5.1) 08/14/17 05:50 Chloride 101 mmol/L (98-107) 08/14/17 05:50 Carbon Dioxide 21 mmol/L (21-32) D 08/14/17 05:50 Anion Gap 15 (8-16) 08/14/17 05:50 BUN 7 mg/dL (7-18) D 08/14/17 05:50 Creatinine 0.8 mg/dL (0.7-1.3) 08/14/17 05:50 Creat Clearance w eGFR > 60 (>60) 08/13/17 06:20 Random Glucose 273 mg/dL (74-106) H 08/14/17 05:50 Calcium 8.5 mg/dL (8.5-10.1) 08/14/17 05:50 Total Bilirubin 0.4 mg/dL (0.2-1.0) 08/13/17 06:20 AST 431 U/L (15-37) H D 08/13/17 06:20 ALT 65 U/L (12-78) D 08/13/17 06:20 Alkaline Phosphatase 108 U/L (45-117) 08/13/17 06:20 Total Protein 6.5 g/dl (6.4-8.2) 08/13/17 06:20 Albumin 2.7 g/dl (3.4-5.0) L 08/13/17 06:20 INR, PTT INR 1.15 (0.82-1.09) H 08/12/17 10:00 Fibrinogen 273.0 mg/dL (238-498) D 08/12/17 10:00 ASSESSMENT AND PLAN: 47 yo M with hx. of DM, CAD (s/p Stents), RLE pain foudn to have r. pop art thrombus and tibial art clot 1.) RLE Ischemia/pAD - Hep gtt/Coumadin - Check INR - Pulse checks - Statin/BB 2.) DM - FS - RAISS 3.) CAD - Resume ASA, if no more procedures planned ICU CC Time: 28 Minutes
[2017-08-15] MEDS: ATORVASTATIN CA 40 MG TABLET (FP) PO SCH (21:24)
[2017-08-15] MEDS: INSULIN DETEMIR 100 UNITS/ML MDV SQ SCH (21:25)
[2017-08-15] MEDS: CHLORHEXIDINE GLUCONATE 4% CLEANSER FOR DECOLONIZATION TP SCH (21:32)
--- NOTE | 2017-08-15 22:48 | PN ---
Physical Exam: SUBJECTIVE: Patient seen and examined. Following admission, has had 2 angiographies done. Had tPA then 2nd angiography with scattered clots. Pt got out of bed into chair this am, but was unable to bear weight on the RLE because of pain. RLE now warm. Has been tolerating oral feeds. Received morphine for pain over the weekend. No chest pain, palpitations or SOB. Sating well in room air. Yet to be seen by physical therapy. Coumadin started today. OBJECTIVE: Vital Signs Period Temp Pulse Resp BP Sys/Miller Pulse Ox Last 24 Hr 97.8 F-99.2 F 101-112 18-21 114-150/70-86 98-99 GENERAL: The patient is awake, alert, and fully oriented, in no acute respiratory distress. HEAD: Normal with no signs of trauma. EYES: PERRL, extraocular movements intact, sclera anicteric, conjunctiva clear. No ptosis. ENT: Ears normal, nares patent, oropharynx clear without exudates, moist mucous membranes. NECK: Trachea midline, full range of motion, supple. LUNGS: Breath sounds equal, clear to auscultation bilaterally, no wheezes, no crackles, no accessory muscle use. HEART: tachycardia, S1, S2 without murmur, rub or gallop. ABDOMEN: Soft, nontender, nondistended, normoactive bowel sounds, no guarding, no rebound, no hepatosplenomegaly, no masses. EXTREMITIES: 2+ DP, TP pulses on L, warm, well-perfused, no edema. Swollen RLE ( up to calf), mild tenderness. DP (dopplerable), TP NEUROLOGICAL: Cranial nerves II through XII grossly intact. Normal speech, gait not observed. PSYCH: Normal mood, normal affect. Laboratory Results - last 24 hr 08/15/17 08/15/17 08/15/17 05:15 05:15 06:24 WBC 10.6 H RBC 4.09 Hgb 11.0 L Hct 32.6 L MCV 79.8 L MCH 26.9 MCHC 33.8 RDW 13.7 Plt Count 392 MPV 7.8 PTT (Actin FS) 27.0 D POC Glucometer 218.24483 08/15/17 08/15/17 08/15/17 11:47 15:00 17:44 WBC RBC Hgb Hct MCV MCH MCHC RDW Plt Count MPV PTT (Actin FS) 30.7 POC Glucometer 266.94193 286.35079 08/15/17 21:23 WBC RBC Hgb Hct MCV MCH MCHC RDW Plt Count MPV PTT (Actin FS) POC Glucometer [phone] Active Medications Generic Name Dose Route Start Last Admin Trade Name Freq PRN Reason Stop Dose Admin Albuterol Sulfate 1 amp 08/11/17 23:33 Ventolin 0.083% Nebulizer Soln - NEB Q4H PRN SHORT OF BREATH/WHEEZING Atorvastatin Calcium 40 mg 08/11/17 22:00 08/15/17 21:24 Lipitor - PO 40 mg HS MARYJO Administration Chlorhexidine Gluconate 1 applic 08/11/17 22:00 08/15/17 21:32 Hibiclens For Decolonization - TP 1 applic HS MARYJO Administration Fentanyl 50 mcg 08/11/17 15:12 Sublimaze Injection - IVPUSH [id number] PRN PAIN-PACU ORDER X 4 DOSES ONLY Heparin Sodium (Porcine) 1,000 unit 08/12/17 19:12 Heparin - IVPUSH PRN PRN Heparin Heparin Sodium (Porcine) 5,000 unit 08/12/17 19:12 08/15/17 17:00 Heparin - IVPUSH 5,000 unit PRN PRN Administration Heparin Sodium Chloride 1,000 mls @ 50 mls/hr 08/11/17 16:45 08/15/17 17:33 Normal Saline - IV 50 mls/hr ASDIR MARYJO Administration Heparin Sodium (Porcine) 25, 500 mls @ 20 mls/hr 08/12/17 19:15 08/15/17 20: 35 000 unit/ Sodium Chloride IV Not Given TITR MARYJO Protocol 1,000 UNIT/HR Insulin Aspart 1 vial 08/11/17 16:30 08/15/17 21:26 Novolog Vial Sliding Scale - SQ 4 units ACHS MARYJO Administration Protocol Insulin Detemir 20 units 08/11/17 22:00 08/15/17 21:25 Levemir Vial SQ 20 units HS MARYJO Administration Lisinopril 5 mg 08/12/17 10:00 08/15/17 11:09 Prinivil PO 5 mg DAILY MARYJO Administration Metoprolol Tartrate 25 mg 08/11/17 22:00 08/15/17 21:24 Lopressor - PO 25 mg BID MARYJO Administration Mupirocin 1 applic 08/11/17 22:00 08/15/17 21:24 Bactroban Ointment (For Decolonization) - NS 08/16/17 21:59 1 applic BID MARYJO Administration Nicotine 7 mg 08/12/17 10:00 08/15/17 11:09 Nicoderm Patch - TD 7 mg DAILY MARYJO Administration Ondansetron HCl 4 mg 08/11/17 15:12 Zofran Injection IVPUSH Q6H PRN NAUSEA AND/OR VOMITING Warfarin Sodium 5 mg 08/16/17 18:00 Coumadin - PO DAILY@1800 [facility] ASSESSMENT/PLAN: 47 year old male, with a signif PMHx of diabetes, CAD(s/p stents), HTN, presented with cold R foot with R popliteal arterial occlusion now s/p angiography R popliteal arterial occlusion now s/p angiography: Started coumadin 5mg daily Bridging off heparin Vascular consult-Dr Chandler on board PT/INR, PTT Pain mx as needed Diabetic/sodium restricted diet Lipitor 40mg daily HS DM: Hyperglycemia Iv levemir 20u HS ISS- ACHS BGM-ACHS DM education Diabetic/sodium restricted diet HTN: metoprolol 25mg bid lisinopril 5mg daily CAD s/p stents: Hold ASA metoprolol 25mg bid Tobacco use: Nicotine patch 7TD Counseling FEN: iv normal saline @50mls/hr Monitor lytes and replete as needed Oral diet PPx: Heparin drip Coumadin Dispo: Tele Visit type - Emergency Visit Emergency Visit: Yes ED Registration Date: 08/10/17 Care time: The patient presented to the Emergency Department on the above date and was hospitalized for further evaluation of their emergent condition. - New Patient This patient is new to me today: No - Critical Care Critical Care patient: No - Discharge Referral Referred to [facility] Med P.C.: No
[2017-08-16] MEDS ORDERED: ACETAMINOPHEN 325 MG TABLET (FP) PO PRN (01:08)
[2017-08-16 05:57] LABS: BASO % 1.5 % (0-2.0); EOS % 1.8 % (0-4.5); HEMATOCRIT 31.7 % (35.4-49); HEMOGLOBIN 10.7 GM/dL (11.7-16.9); LYMPH % 25.9 % (8-40); MCHC 33.8 g/dl (32.0-35.9); MEAN PLT VOLUME 7.9 fl (7.5-11.1); MONO % 11.7 % (3.8-10.2); NEUT % 59.1 % (42.8-82.8); PLATELET COUNT 464 K/MM3 (134-434); RBC 3.96 M/mm3 (4.00-5.60); RDW 13.5 % (11.9-15.9)
[2017-08-16] MEDS: INSULIN SLIDING SCALE (NOVOLOG) 1 VIAL SQ SCH ×4 (06:07→21:15)
[2017-08-16 06:17] LABS: INR 1.1 (0.82-1.09); PROTHROMBIN TIME (PATIENT) 12.4 SEC (9.98-11.88)
[2017-08-16 06:28] LABS: ALBUMIN 2.2 g/dl (3.4-5.0); ANION GAP 9 (8-16); BILIRUBIN,TOTAL 0.2 mg/dL (0.2-1.0); BLOOD UREA NITROGEN 8 mg/dL (7-18); CALCIUM 8.3 mg/dL (8.5-10.1); CHLORIDE 105 mmol/L (98-107); CO2 25 mmol/L (21-32); CREATININE 0.9 mg/dL (0.7-1.3); GLUCOSE,RANDOM 226 mg/dL (74-106); PHOSPHOROUS 3.5 mg/dL (2.5-4.9); SGOT/AST 136 U/L (15-37); SGPT/ALT 59 U/L (12-78); SODIUM 139 mmol/L (136-145); TOT PROT 6.5 g/dl (6.4-8.2)
[2017-08-16 06:29] LABS: ALK PHOS 94 U/L (45-117)
[2017-08-16] MEDS ORDERED: PT OWN MED DRAWER 7, Y5N ONE (07:56)
[2017-08-16] MEDS: NICOTINE 7 MG/24 HOURS TOPICAL PATCH TD SCH (09:12)
[2017-08-16] MEDS: MUPIROCIN 2% TOPICAL OINTMENT FOR DECOLONIZATION NS SCH (09:12)
[2017-08-16] MEDS: LISINOPRIL 5 MG TABLET (FP) PO SCH (09:13)
[2017-08-16] MEDS: METOPROLOL TARTRATE 25 MG TABLET (FP) PO SCH ×2 (09:13→21:14)
[2017-08-16] MEDS: HEPARIN - 25,000 UNIT in SODIUM CHLORIDE 495 ML IV SCH ×2 (09:13→19:58)
[2017-08-16] MEDS: HEPARIN NA (PORCINE) 5,000 UNITS/ML 1ML VIAL IVPUSH PRN ×2 (09:17→20:29)
[2017-08-16] MEDS: SODIUM CHLORIDE 1,000 ML IV SCH (12:09)
--- NOTE | 2017-08-16 13:00 | PN ---
Teaching Attending Note Name of Resident: Kt Gomez ATTENDING PHYSICIAN STATEMENT I saw and evaluated the patient. I reviewed the resident's note and discussed the case with the resident. I agree with the resident's findings and plan as documented. SUBJECTIVE:states pain is controlled and does not require medication. has not been out of bed. states he has not been on any medications for a few months. as he ran out of medications and has not seen a doctor in over a year. denies Cp, SOB< fever, chills, N/V/C/D OBJECTIVE: Last Vital Signs Temp Pulse Resp BP Pulse Ox 97.8 F 99 H 20 136/89 99 08/16/17 09:00 08/16/17 09:00 08/16/17 09:00 08/16/17 09:00 08/16/17 09:00 General NAD CV S1 S2 tachy no murmur or rubs Lungs CTA B/L no wheezing/rales/rhonchi Extremities RLE tenderness trace pitting edema. DP and TP pulses appreciated with doppler. LLE non tender no swelling pulse 2+ ASSESSMENT AND PLAN: 47yo M wtih PMH DM, CAD s/p stents, dyslipidemia and conitnuous tobacco dependence presented with RLE pain and found to have acute thrombus 1. ACute R popliteal aterial thrombus- s/p TPA and angioplasty on 08/12. has some re-perfusion pain. pulses intact. on heparin ggt with coumadin bridge day 2. dietary eval for coumadin diet. as per vascular should be oob to chair. on statin. PT consulted. 2. Normocytica anemia- Hgb stable. no indication for transfusion at this time. check iron studies. monitor 3. DM- uncontrolled. A1c >15.5. not compliant with medications. counselled on the risks assoc with uncontrolled DM and early . was on insulin in the past. states he can not afford insulin and he wont take it. will start oral agents here. pt understands that oral agents are not as efficient at controlling sugars and that may not prevent alf consequences of diabetes. stressed lifestyle changes. dietary eval 4. Dyslipidemia- on statin 5. COntinuous nicotine dependence- nicotine patch. counselled on tobacco cessation 6. CAD s/p stents 7. Sinus tachycardia- may be due to pain. as per pt has been told he had fast HR. will check EKG 8. Obesity- BMI 36.8. lifestyle changes. diet and excercise with goal of 1 lb / week 9. DVT ppx- hep-coumadin bridge 10. PT eval. stressed importance of lifestyle changes and medication compliance and follow up. verbalized agreement and understanding
--- NOTE | 2017-08-16 13:50 | PN ---
Physical Exam: SUBJECTIVE: Patient seen and examined No acute events overnight. Pt reports that pain is well controlled at a 6/10 without any pain meds. He has not walked with PT yet. He denies chest pain, SOB , abdominal pain, n/v/d/c, and dysuria. OBJECTIVE: Vital Signs Period Temp Pulse Resp BP Sys/Miller Pulse Ox Last 24 Hr 97.5 F-99.2 F 99-110 18-20 126-150/78-91 99-99 GENERAL: middle aged male, awake, alert, and fully oriented, in no acute distress. HEENT: NC, AT LUNGS: Breath sounds equal, clear to auscultation bilaterally, no wheezes, no crackles, no accessory muscle use. HEART: Regular rate and rhythm, S1, S2 without murmur, rub or gallop. ABDOMEN: Soft, nontender, nondistended, normoactive bowel sounds, no guarding, no rebound, no hepatosplenomegaly, no masses. EXTREMITIES: right calf is swollen and tender to palpation. RLE is warm to touch. pain upon movement of toes in RLE. sensory function intact. NEUROLOGICAL: Cranial nerves II through XII grossly intact. Normal speech, gait not observed. Laboratory Results - last 24 hr 08/15/17 08/15/17 08/15/17 15:00 17:44 21:23 WBC RBC Hgb Hct MCV MCH MCHC RDW Plt Count MPV Neutrophils % Lymphocytes % Monocytes % Eosinophils % Basophils % PT with INR INR PTT (Actin FS) 30.7 Sodium Potassium Chloride Carbon Dioxide Anion Gap BUN Creatinine Creat Clearance w eGFR POC Glucometer 286.32500 232.96586 Random Glucose Calcium Phosphorus Magnesium Total Bilirubin AST ALT Alkaline Phosphatase Total Protein Albumin 08/16/17 08/16/17 08/16/17 05:22 05:22 05:22 WBC 10.0 RBC 3.96 L Hgb 10.7 L Hct 31.7 L MCV 80.0 MCH 27.0 MCHC 33.8 RDW 13.5 Plt Count 464 H MPV 7.9 Neutrophils % 59.1 Lymphocytes % 25.9 D Monocytes % 11.7 H Eosinophils % 1.8 D Basophils % 1.5 PT with INR 12.40 H INR 1.10 PTT (Actin FS) 31.9 Sodium Potassium Chloride Carbon Dioxide Anion Gap BUN Creatinine Creat Clearance w eGFR POC Glucometer Random Glucose Calcium Phosphorus Magnesium Total Bilirubin AST ALT Alkaline Phosphatase Total Protein Albumin 08/16/17 08/16/17 08/16/17 05:22 06:04 12:07 WBC RBC Hgb Hct MCV MCH MCHC RDW Plt Count MPV Neutrophils % Lymphocytes % Monocytes % Eosinophils % Basophils % PT with INR INR PTT (Actin FS) Sodium 139 Potassium 4.0 Chloride 105 Carbon Dioxide 25 Anion Gap 9 BUN 8 Creatinine 0.9 Creat Clearance w eGFR > 60 POC Glucometer 180.80289 270.27373 Random Glucose 226 H Calcium 8.3 L Phosphorus 3.5 Magnesium 2.0 Total Bilirubin 0.2 D AST 136 H D ALT 59 Alkaline Phosphatase 94 Total Protein 6.5 Albumin 2.2 L Active Medications Generic Name Dose Route Start Last Admin Trade Name Freq PRN Reason Stop Dose Admin Acetaminophen 650 mg 08/16/17 01:08 Tylenol - PO Q6H PRN FEVER Albuterol Sulfate 1 amp 08/11/17 23:33 Ventolin 0.083% Nebulizer Soln - NEB Q4H PRN SHORT OF BREATH/WHEEZING Aspirin 81 mg 08/16/17 13:45 Asa - PO DAILY MARYJO Atorvastatin Calcium 40 mg 08/11/17 22:00 08/15/17 21:24 Lipitor - PO 40 mg HS MARYJO Administration Chlorhexidine Gluconate 1 applic 08/11/17 22:00 08/15/17 21:32 Hibiclens For Decolonization - TP 1 applic HS MARYJO Administration Heparin Sodium (Porcine) 1,000 unit 08/12/17 19:12 Heparin - IVPUSH PRN PRN Heparin Heparin Sodium (Porcine) 5,000 unit 08/12/17 19:12 08/16/17 09:17 Heparin - IVPUSH 5,000 unit PRN PRN Administration Heparin Heparin Sodium (Porcine) 25, 500 mls @ 20 mls/hr 08/12/17 19:15 08/16/17 09: 16 000 unit/ Sodium Chloride IV 1,800 unit/hr TITR MARYJO 36 mls/hr Protocol Titration 1,000 UNIT/HR Insulin Aspart 1 vial 08/11/17 16:30 08/16/17 12:08 Novolog Vial Sliding Scale - SQ 6 units ACHS MARYJO Administration Protocol Insulin Detemir 25 units 08/16/17 13:11 Levemir Vial SQ HS MARYJO Lisinopril 5 mg 08/12/17 10:00 08/16/17 09:13 Prinivil PO 5 mg DAILY MARYJO Administration Metformin HCl 750 mg 08/17/17 07:00 Glucophage Xr - PO DAILY@0700 [facility] Metformin HCl 750 mg 08/16/17 12:55 Glucophage Xr - PO 08/16/17 12:56 ONCE ONE Metoprolol Tartrate 25 mg 08/11/17 22:00 08/16/17 09:13 Lopressor - PO [address] [facility] Administration Mupirocin 1 applic 08/11/17 22:00 08/16/17 09:12 Bactroban Ointment (For Decolonization) - NS 08/16/17 21:59 1 applic BID MARYJO Administration Nicotine 7 mg 08/12/17 10:00 08/16/17 09:12 Nicoderm Patch - TD [address] [facility] Administration Ondansetron HCl 4 mg 08/11/17 15:12 Zofran Injection IVPUSH Q6H PRN NAUSEA AND/OR VOMITING Sitagliptin Phosphate 100 mg 08/17/17 07:00 Januvia - PO DAILY@0700 [facility] Sitagliptin Phosphate 100 mg 08/16/17 12:55 Januvia - PO 08/16/17 12:56 ONCE ONE Warfarin Sodium 5 mg 08/16/17 18:00 Coumadin - PO DAILY@1800 [facility] ASSESSMENT/PLAN: 47M w/ hx of DM, HTN, and CAD s/p stents who presented with a cold and painful RLE, found to have evidence of right popliteal artery occlusion on LE duplex and CTA aorta, admitted for revascularization. Pt is s/p TPA on 08/11 and s/p thrombolysis on 08/12 due to lost pulses, currently undergoing a heparin to coumadin bridge. #R popliteal artery occlusion -s/p TPA on 08/11 and s/p thrombolysis on 08/12 due to lost pulses, currently undergoing a heparin to coumadin bridge. -continue coumadin 5mg daily for now -trend INR. INR today of 1.10 -Vascular consult-Dr Chandler on board, recs appreciated -Pain tolerated without pain meds -Diabetic/sodium restricted diet -Lipitor 40mg daily HS -PT #DM- uncontrolled -22 units of ISS required in last 24 hours -levemir increased from 20U to 25U HS -started on januvia and metformin. Pt has no insurance and will not be able to afford insulin upon discharge. -ISS- ACHS -BGM-ACHS -DM education -Diabetic/sodium restricted diet #Anemia -Hgb of 10.7 today, down from 13 on admission -f/u iron studies #Transaminitis- resolving -likely 2/2 recent procedures -AST of 136, down from 431 #HTN: -continue lisinopril 5mg daily #CAD s/p stents -ASA restarted as per vascular #Tobacco use: -Nicotine patch 7 TD -Counseling #FEN/ppx -po fluids -electroltes wnl -Diabetic/sodium restricted diet -no GI ppx indicated -heparin to coumadin bridge #Dispo -pending therapeutic INR Case discussed with attending, Dr. Palacio. -Kt Gomez MD PGY1 Visit type - Emergency Visit Emergency Visit: Yes ED Registration Date: 08/10/17 Care time: The patient presented to the Emergency Department on the above date and was hospitalized for further evaluation of their emergent condition. - New Patient This patient is new to me today: Yes Date on this admission: 08/16/17 - Critical Care Critical Care patient: No
--- NOTE | 2017-08-16 13:57 | PN ---
Progress Note (short form) - Note Progress Note: Feels OK. Overall less pain in the LE. No CP or SOB. Intake & Output 08/13/17 08/14/17 08/15/17 08/16/17 23:59 23:59 23:59 23:59 Intake Total 824 2332 2930 770 Output Total 1575 2700 1320 600 Balance -751 -368 1610 170 Last Vital Signs Temp Pulse Resp BP Pulse Ox 97.8 F 99 H 20 136/89 99 08/16/17 09:00 08/16/17 09:00 08/16/17 09:00 08/16/17 09:00 08/16/17 09:00 Active Medications Acetaminophen (Tylenol -) 650 mg PO Q6H PRN PRN Reason: FEVER Albuterol Sulfate (Ventolin 0.083% Nebulizer Soln -) 1 amp NEB Q4H PRN PRN Reason: SHORT OF BREATH/WHEEZING Aspirin (Asa -) 81 mg PO DAILY MARYJO Atorvastatin Calcium (Lipitor -) 40 mg PO HS [facility] Last Admin: 08/15/17 21:24 Dose: 40 mg Chlorhexidine Gluconate (Hibiclens For Decolonization -) 1 applic TP HS [facility] Last Admin: 08/15/17 21:32 Dose: 1 applic Heparin Sodium (Porcine) (Heparin -) 1,000 unit IVPUSH PRN PRN PRN Reason: Heparin Heparin Sodium (Porcine) (Heparin -) 5,000 unit IVPUSH PRN PRN PRN Reason: Heparin Last Admin: 08/16/17 09:17 Dose: 5,000 unit Heparin Sodium (Porcine) 25, (000 unit/ Sodium Chloride) 500 mls @ 20 mls/hr IV TITR MARYJO; 1,000 UNIT/HR PRN Reason: Protocol Last Titration: 08/16/17 09:16 Dose: 1,800 unit/hr, 36 mls/hr Insulin Aspart (Novolog Vial Sliding Scale -) 1 vial SQ ACHS MARYJO PRN Reason: Protocol Last Admin: 08/16/17 12:08 Dose: 6 units Insulin Detemir (Levemir Vial) 25 units SQ HS [facility] Lisinopril (Prinivil) 5 mg PO DAILY [facility] Last Admin: 08/16/17 09:13 Dose: 5 mg Metformin HCl (Glucophage Xr -) 750 mg PO DAILY@0700 [facility] Metformin HCl (Glucophage Xr -) 750 mg PO ONCE ONE Stop: 08/16/17 12:56 Metoprolol Tartrate (Lopressor -) 25 mg PO BID [facility] Last Admin: 08/16/17 09:13 Dose: 25 mg Mupirocin (Bactroban Ointment (For Decolonization) -) 1 applic NS BID [facility] Stop: 08/16/17 21:59 Last Admin: 08/16/17 09:12 Dose: 1 applic Nicotine (Nicoderm Patch -) 7 mg TD DAILY [facility] Last Admin: 08/16/17 09:12 Dose: 7 mg Ondansetron HCl (Zofran Injection) 4 mg IVPUSH Q6H PRN PRN Reason: NAUSEA AND/OR VOMITING Sitagliptin Phosphate (Januvia -) 100 mg PO DAILY@0700 [facility] Sitagliptin Phosphate (Januvia -) 100 mg PO ONCE ONE Stop: 08/16/17 12:56 Warfarin Sodium (Coumadin -) 5 mg PO DAILY@1800 [facility] Physical Exam GENERAL: Awake, alert, and fully oriented, in no acute distress. HEAD: Normal with no signs of trauma. EYES: Pupils equal, round and reactive to light, extraocular movements intact, sclera anicteric, conjunctiva clear. EARS, NOSE, THROAT: Ears normal, nares patent, oropharynx clear without exudates. Moist mucous membranes. NECK: Normal range of motion, supple without lymphadenopathy, JVD, or masses. LUNGS: Breath sounds equal, clear to auscultation bilaterally. No wheezes, and no crackles. HEART: Tachycardic- S1 and S2 . ABDOMEN: Obese, Soft, nontender, not distended, normoactive bowel sounds, no guarding, no rebound, no masses. MUSCULOSKELETAL: Normal range of motion at all joints. No bony deformities or tenderness. No CVA tenderness. UPPER EXTREMITIES: 2+ pulses, warm, well-perfused. No peripheral edema. LOWER EXTREMITIES: Decreased DP pulse on Right. No calf tenderness, peripheral edema NEUROLOGICAL: Non-focal PSYCHIATRIC: Cooperative. Good eye contact. Laboratory Results - last 24 hr 08/15/17 08/15/17 08/15/17 15:00 17:44 21:23 WBC RBC Hgb Hct MCV MCH MCHC RDW Plt Count MPV Neutrophils % Lymphocytes % Monocytes % Eosinophils % Basophils % PT with INR INR PTT (Actin FS) 30.7 Sodium Potassium Chloride Carbon Dioxide Anion Gap BUN Creatinine Creat Clearance w eGFR POC Glucometer [phone] Random Glucose Calcium Phosphorus Magnesium Total Bilirubin AST ALT Alkaline Phosphatase Total Protein Albumin 08/16/17 08/16/17 08/16/17 05:22 05:22 05:22 WBC 10.0 RBC 3.96 L Hgb 10.7 L Hct 31.7 L MCV 80.0 MCH 27.0 MCHC 33.8 RDW 13.5 Plt Count 464 H MPV 7.9 Neutrophils % 59.1 Lymphocytes % 25.9 D Monocytes % 11.7 H Eosinophils % 1.8 D Basophils % 1.5 PT with INR 12.40 H INR 1.10 PTT (Actin FS) 31.9 Sodium Potassium Chloride Carbon Dioxide Anion Gap BUN Creatinine Creat Clearance w eGFR POC Glucometer Random Glucose Calcium Phosphorus Magnesium Total Bilirubin AST ALT Alkaline Phosphatase Total Protein Albumin 08/16/17 08/16/17 08/16/17 05:22 06:04 12:07 WBC RBC Hgb Hct MCV MCH MCHC RDW Plt Count MPV Neutrophils % Lymphocytes % Monocytes % Eosinophils % Basophils % PT with INR INR PTT (Actin FS) Sodium 139 Potassium 4.0 Chloride 105 Carbon Dioxide 25 Anion Gap 9 BUN 8 Creatinine 0.9 Creat Clearance w eGFR > 60 POC Glucometer 180.63130 270.10845 Random Glucose 226 H Calcium 8.3 L Phosphorus 3.5 Magnesium 2.0 Total Bilirubin 0.2 D AST 136 H D ALT 59 Alkaline Phosphatase 94 Total Protein 6.5 Albumin 2.2 L Assessment/Plan 47 M, poorly controlled DM, 25 year 1/2 PPD smoker, CAD (PCI 4 years ago) Occluded mid to distal popilteal artery IV Heparin / Coumadin bridge O2 as needed PT Pain control Incentive Spirometry Smoking cessation again counseled Dr Galeano
--- NOTE | 2017-08-16 14:12 | EKG ---
Test Reason : Blood Pressure : / mmHG Vent. Rate : 100 BPM Atrial Rate : 100 BPM P-R Int : 156 ms QRS Dur : 098 ms QT Int : 352 ms P-R-T Axes : 053 -21 034 degrees QTc Int : 454 ms NORMAL SINUS RHYTHM ANTEROLATERAL INFARCT (CITED ON OR BEFORE 10-AUG-2017) ABNORMAL ECG Confirmed by MD Rhona, Charles ([id number]) on 08/16/2017 2:12:00 PM Referred By: SOPHIA WHITAKER Confirmed By:Charles Melgoza MD
[2017-08-16] MEDS ORDERED: sitaGLIPtin PHOSPHATE 100 MG TABLET (FP) PO ONE (14:45)
[2017-08-16] MEDS: ASPIRIN 81 MG CHEWABLE TABLETS PO SCH (15:54)
[2017-08-16] MEDS: metFORMIN HCL 500 MG TABLET (FP) PO SCH (17:03)
[2017-08-16] MEDS ORDERED: WARFARIN NA 5 MG TABLET (UD) PO SCH (18:00)
[2017-08-16] MEDS: ATORVASTATIN CA 40 MG TABLET (FP) PO SCH (21:14)
[2017-08-16] MEDS: INSULIN DETEMIR 100 UNITS/ML MDV SQ SCH (21:15)
[2017-08-16] MEDS: CHLORHEXIDINE GLUCONATE 4% CLEANSER FOR DECOLONIZATION TP SCH (21:45)
[2017-08-17] MEDS ORDERED: PT OWN MED DRAWER 7, Y5N ONE ×3 (00:01→09:07)
[2017-08-17] MEDS: HEPARIN - 25,000 UNIT in SODIUM CHLORIDE 495 ML IV SCH ×2 (00:29→19:02)
[2017-08-17] MEDS: HEPARIN NA (PORCINE) 5,000 UNITS/ML 1ML VIAL IVPUSH PRN ×2 (05:11→17:14)
[2017-08-17] MEDS: metFORMIN HCL 500 MG TABLET (FP) PO SCH ×2 (06:32→17:12)
[2017-08-17] MEDS: sitaGLIPtin PHOSPHATE 100 MG TABLET (FP) PO SCH (06:32)
[2017-08-17] MEDS: INSULIN SLIDING SCALE (NOVOLOG) 1 VIAL SQ SCH ×4 (06:34→21:39)
[2017-08-17 07:11] LABS: BASO % 0.9 % (0-2.0); EOS % 2.4 % (0-4.5); HEMATOCRIT 31.5 % (35.4-49); HEMOGLOBIN 10.6 GM/dL (11.7-16.9); LYMPH % 24.6 % (8-40); MCH 26.8 pg (25.7-33.7); MCHC 33.6 g/dl (32.0-35.9); MEAN CELL VOLUME 79.9 fl (80-96); MEAN PLT VOLUME 7.8 fl (7.5-11.1); MONO % 10.6 % (3.8-10.2); NEUT % 61.5 % (42.8-82.8); PLATELET COUNT 530 K/MM3 (134-434); RBC 3.94 M/mm3 (4.00-5.60); RDW 13.3 % (11.9-15.9); WHITE BLOOD COUNT 9.6 K/mm3 (4.0-10.0)
[2017-08-17 07:27] LABS: INR 1.11 (0.82-1.09); PROTHROMBIN TIME (PATIENT) 12.5 SEC (9.98-11.88)
[2017-08-17 08:17] LABS: POTASSIUM 3.8 mmol/L (3.5-5.1)
[2017-08-17 08:18] LABS: ALBUMIN 2.2 g/dl (3.4-5.0); ANION GAP 12 (8-16); BLOOD UREA NITROGEN 8 mg/dL (7-18); CALCIUM 8.3 mg/dL (8.5-10.1); CHLORIDE 103 mmol/L (98-107); CO2 24 mmol/L (21-32); CREATININE 0.9 mg/dL (0.7-1.3); GLUCOSE,RANDOM 221 mg/dL (74-106); SGOT/AST 81 U/L (15-37); SGPT/ALT 53 U/L (12-78); SODIUM 139 mmol/L (136-145); TOT PROT 6.5 g/dl (6.4-8.2)
[2017-08-17 08:19] LABS: ALK PHOS 86 U/L (45-117); BILIRUBIN,TOTAL 0.5 mg/dL (0.2-1.0)
[2017-08-17] MEDS: ASPIRIN 81 MG CHEWABLE TABLETS PO SCH (09:16)
[2017-08-17] MEDS: NICOTINE 7 MG/24 HOURS TOPICAL PATCH TD SCH (09:16)
[2017-08-17] MEDS: METOPROLOL TARTRATE 25 MG TABLET (FP) PO SCH ×2 (09:16→21:39)
[2017-08-17] MEDS: LISINOPRIL 5 MG TABLET (FP) PO SCH (09:17)
--- NOTE | 2017-08-17 10:43 | PN ---
Teaching Attending Note Name of Resident: Dary Lopez ATTENDING PHYSICIAN STATEMENT I saw and evaluated the patient. I reviewed the resident's note and discussed the case with the resident. I agree with the resident's findings and plan as documented. SUBJECTIVE:c/o pain in leg on movement. relieved with tylenol. denies CP, SOB, fever, chills, N/V/C/D OBJECTIVE: Last Vital Signs Temp Pulse Resp BP Pulse Ox 98.0 F 98 H 19 122/90 97 08/17/17 07:29 08/17/17 07:29 08/17/17 07:33 08/17/17 07:29 08/17/17 07:33 General NAD Extremities RLE mild swelling, tenderness on calf. pulses appreciated with doppler ASSESSMENT AND PLAN: 47yo M wtih PMH DM, CAD s/p stents, dyslipidemia and conitnuous tobacco dependence presented with RLE pain and found to have acute thrombus 1. Acute R popliteal aterial thrombus- s/p TPA and angioplasty on 08/12. has some re-perfusion pain. pulses intact. on heparin ggt with coumadin bridge day 3. will increase coumadin to 7.5mg today. oob to chair. on statin. PT consulted. 2. Normocytica anemia- Hgb stable. no indication for transfusion at this time. iron studies pending. monitor 3. DM- uncontrolled. A1c >15.5. still requiring high insulin coverage. started on januvia and metformin. will start glyburide to improve control. explained ideally should be on insulin. states he has no insurance. will ask SW to see if hes medicaid applicable to assist with prescription insurance. counseled by dietary on lifestyle changes 4. Dyslipidemia- on statin 5. COntinuous nicotine dependence- nicotine patch. counselled on tobacco cessation 6. CAD s/p stents 7. Sinus tachycardia-may be pain induced. improved. repeat EKG with no changes. no further management at this time. 8. Obesity- BMI 36.8. lifestyle changes. diet and exercise with goal of 1 lb / week 9. DVT ppx- hep-coumadin bridge 10. PT eval. stressed importance of lifestyle changes and medication compliance and follow up. verbalized agreement and understanding. d/c cardiac monitoring
[2017-08-17] MEDS ORDERED: glyBURIDE 5 MG TABLET (UD) PO ONE (11:00)
--- NOTE | 2017-08-17 11:20 | PN ---
Physical Exam: SUBJECTIVE: Patient seen and examined. Pt reports Right LE pain was relieved with Tylenol last night. Pt encouraged to get OOB and move around. Pt denies chest pain, sob, fever, chills, abdominal pain. No events overnight. Pt to be transferred off Telemetry to [facility] today. OBJECTIVE: Vital Signs Period Temp Pulse Resp BP Sys/Miller Pulse Ox Last 24 Hr 98.0 F-98.5 F 97-112 19-20 120-142/77-92 97-97 GENERAL: awake, alert, and fully oriented, in no acute distress. LUNGS: Breath sounds equal, clear to auscultation bilaterally, no wheezes, no crackles, no accessory muscle use. HEART: Regular rate and rhythm, S1, S2 without murmur, rub or gallop. ABDOMEN: Soft, nontender, nondistended, no guarding. EXTREMITIES: Right calf is swollen and tender to palpation. Right LE is warm to touch. Pain upon movement of toes in Right LE. PT and DP pulses heard with Doppler. PSYCH: Normal mood, normal affect. Cooperative, good eye contact. Laboratory Results - last 24 hr 08/16/17 08/16/17 08/16/17 12:07 16:58 17:00 WBC RBC Hgb Hct MCV MCH MCHC RDW Plt Count MPV Neutrophils % Lymphocytes % Monocytes % Eosinophils % Basophils % PT with INR INR PTT (Actin FS) 32.2 Sodium Potassium Chloride Carbon Dioxide Anion Gap BUN Creatinine Creat Clearance w eGFR POC Glucometer 270.34911 292.98165 Random Glucose Calcium Ferritin Total Bilirubin AST ALT Alkaline Phosphatase Total Protein Albumin 08/16/17 08/17/17 08/17/17 21:00 03:40 06:30 WBC RBC Hgb Hct MCV MCH MCHC RDW Plt Count MPV Neutrophils % Lymphocytes % Monocytes % Eosinophils % Basophils % PT with INR INR PTT (Actin FS) 36.1 H 125.8 H D Sodium Potassium Chloride Carbon Dioxide Anion Gap BUN Creatinine Creat Clearance w eGFR POC Glucometer 184.07254 Random Glucose Calcium Ferritin Total Bilirubin AST ALT Alkaline Phosphatase Total Protein Albumin 08/17/17 08/17/17 08/17/17 06:30 06:30 06:30 WBC 9.6 RBC 3.94 L Hgb 10.6 L Hct 31.5 L MCV 79.9 L MCH 26.8 MCHC 33.6 RDW 13.3 Plt Count 530 H MPV 7.8 Neutrophils % 61.5 Lymphocytes % 24.6 Monocytes % 10.6 H Eosinophils % 2.4 Basophils % 0.9 PT with INR 12.50 H INR 1.11 PTT (Actin FS) Sodium 139 Potassium 3.8 Chloride 103 Carbon Dioxide 24 Anion Gap 12 BUN 8 Creatinine 0.9 Creat Clearance w eGFR > 60 POC Glucometer Random Glucose 221 H Calcium 8.3 L Ferritin 560.100 H Total Bilirubin 0.5 D AST 81 H D ALT 53 Alkaline Phosphatase 86 Total Protein 6.5 Albumin 2.2 L 08/17/17 06:32 WBC RBC Hgb Hct MCV MCH MCHC RDW Plt Count MPV Neutrophils % Lymphocytes % Monocytes % Eosinophils % Basophils % PT with INR INR PTT (Actin FS) Sodium Potassium Chloride Carbon Dioxide Anion Gap BUN Creatinine Creat Clearance w eGFR POC Glucometer [phone] Random Glucose Calcium Ferritin Total Bilirubin AST ALT Alkaline Phosphatase Total Protein Albumin Active Medications Generic Name Dose Route Start Last Admin Trade Name Freq PRN Reason Stop Dose Admin Acetaminophen 650 mg 08/16/17 01:08 08/16/17 21:21 Tylenol - PO 650 mg Q6H PRN Administration FEVER Albuterol Sulfate 1 amp 08/11/17 23:33 Ventolin 0.083% Nebulizer Soln - NEB Q4H PRN SHORT OF BREATH/WHEEZING Aspirin 81 mg 08/16/17 13:45 08/17/17 09:16 Asa - PO 81 mg DAILY MARYJO Administration Atorvastatin Calcium 40 mg 08/11/17 22:00 08/16/17 21:14 Lipitor - PO 40 mg HS MARYJO Administration Chlorhexidine Gluconate 1 applic 08/11/17 22:00 08/16/17 21:45 Hibiclens For Decolonization - TP 1 applic HS [facility]JO Administration Glyburide 5 mg 08/18/17 07:00 Diabeta - PO DAILY@0700 M[facility] Glyburide 5 mg 08/17/17 11:00 Diabeta - PO 08/17/17 11:01 ONCE ONE Heparin Sodium (Porcine) 1,000 unit 08/12/17 19:12 Heparin - IVPUSH PRN PRN Heparin Heparin Sodium (Porcine) 5,000 unit 08/12/17 19:12 08/17/17 05:11 Heparin - IVPUSH 5,000 unit PRN PRN Administration Heparin Heparin Sodium (Porcine) 25, 500 mls @ 20 mls/hr 08/12/17 19:15 08/17/17 09: 17 000 unit/ Sodium Chloride IV 1,950 unit/hr TITR MARYJO 39 mls/hr Protocol Titration 1,000 UNIT/HR Insulin Aspart 1 vial 08/11/17 16:30 08/17/17 06:34 Novolog Vial Sliding Scale - SQ 4 units ACHS MARYJO Administration Protocol Insulin Detemir 25 units 08/16/17 13:11 08/16/17 21:15 Levemir Vial SQ 25 units HS MARYJO Administration Lisinopril 5 mg 08/12/17 10:00 08/17/17 09:17 Prinivil PO 5 mg DAILY MARYJO Administration Metformin HCl 1,000 mg 08/16/17 16:30 08/17/17 06:32 Glucophage - PO 1,000 mg BIDI MARYJO Administration Metoprolol Tartrate 25 mg 08/11/17 22:00 08/17/17 09:16 Lopressor - PO 25 mg BID MARYJO Administration Nicotine 7 mg 08/12/17 10:00 08/17/17 09:16 Nicoderm Patch - TD 7 mg DAILY M[facility]JO Administration Ondansetron HCl 4 mg 08/11/17 15:12 Zofran Injection IVPUSH Q6H PRN NAUSEA AND/OR VOMITING Sitagliptin Phosphate 100 mg 08/17/17 07:00 08/17/17 06:32 Januvia - PO 100 mg DAILY@0700 MARY[facility] Administration Warfarin Sodium 5 mg 08/16/17 18:00 08/16/17 17:03 Coumadin - PO 5 mg DAILY@1800 MARYJO Administration ASSESSMENT/PLAN: 47M with PMH of dm, htn, hld, continuous tobacco dependence, and CAD (s/p stents ) presents with cold and painful Right LE, found to have Right popliteal artery occlusion, admitted for revascularization. # Right popliteal artery occlusion - s/p TPA on 08/11/17 and thrombolysis on - has some re-perfusion pain, pulses intact on Doppler - Heparin drip, bridging to Coumadin Day 3 - trend INR, subtherapuetic again today - increase Coumadin to 7.5mg today - Vascular consult - Dr Chandler on board, recs appreciated - Pain control with Tylenol prn - encourage OOB to chair # DM- uncontrolled - 20 units of ISS required in last 24 hours - continue Levemir 25U HS - continue Januvia and Metformin. Pt has no insurance and will not be able to afford insulin upon discharge. - Glyburide added - ISS- ACHS - BGM-ACHS - DM education # sinus tachycardia - likely 2/2 pain - improved - continue to monitor with regular VS checks, pt stable for transfer off Telemetry # normocytic anemia - hgb stable - f/u iron studies # transaminitis- resolving - likely 2/2 recent procedures - AST continues to trend down # htn - continue Lisinopril # dyslipidemia - continue Lipitor # CAD s/p stents - ASA resumed as per Vascular # Tobacco use - continue Nicotine patch 7mg daily - counseled on cessation # FEN - Fluids: po - Electrolytes: wnl, continue to monitor - Nutrition: diabetic diet # Prophylaxis - DVT ppx with Heparin drip and Coumadin bridge - deconditioning ppx with PT # Dispo - pending therapeutic INR - importance of lifestyle changes and medication compliance emphasized, pt verbalized understanding and had no further questions. - transfer off Telemetry to Med-Surg today Visit type - Emergency Visit Emergency Visit: Yes ED Registration Date: 08/10/17 Care time: The patient presented to the Emergency Department on the above date and was hospitalized for further evaluation of their emergent condition. - New Patient This patient is new to me today: Yes Date on this admission: 08/17/17 - Critical Care Critical Care patient: No
--- NOTE | 2017-08-17 12:23 | PN ---
Progress Note (short form) - Note Progress Note: Still with pain issues in the LE. No CP or SOB. Intake & Output 08/14/17 08/15/17 08/16/17 08/17/17 23:59 23:59 23:59 23:59 Intake Total 2332 2930 1310 360 Output Total 2700 1320 1600 800 Balance -368 1610 -290 -440 Last Vital Signs Temp Pulse Resp BP Pulse Ox 98.0 F 98 H 19 122/90 97 08/17/17 07:29 08/17/17 07:29 08/17/17 07:33 08/17/17 07:29 08/17/17 07:33 Active Medications Acetaminophen (Tylenol -) 650 mg PO Q6H PRN PRN Reason: FEVER Last Admin: 08/16/17 21:21 Dose: 650 mg Albuterol Sulfate (Ventolin 0.083% Nebulizer Soln -) 1 amp NEB Q4H PRN PRN Reason: SHORT OF BREATH/WHEEZING Aspirin (Asa -) 81 mg PO DAILY [facility] Last Admin: 08/17/17 09:16 Dose: 81 mg Atorvastatin Calcium (Lipitor -) 40 mg PO HS [facility] Last Admin: 08/16/17 21:14 Dose: 40 mg Chlorhexidine Gluconate (Hibiclens For Decolonization -) 1 applic TP HS [facility] Last Admin: 08/16/17 21:45 Dose: 1 applic Glyburide (Diabeta -) 5 mg PO DAILY@0700 [facility] Heparin Sodium (Porcine) (Heparin -) 1,000 unit IVPUSH PRN PRN PRN Reason: Heparin Heparin Sodium (Porcine) (Heparin -) 5,000 unit IVPUSH PRN PRN PRN Reason: Heparin Last Admin: 08/17/17 05:11 Dose: 5,000 unit Heparin Sodium (Porcine) 25, (000 unit/ Sodium Chloride) 500 mls @ 20 mls/hr IV TITR MARYJO; 1,000 UNIT/HR PRN Reason: Protocol Last Titration: 08/17/17 09:17 Dose: 1,950 unit/hr, 39 mls/hr Insulin Aspart (Novolog Vial Sliding Scale -) 1 vial SQ ACHS MARYJO PRN Reason: Protocol Last Admin: 08/17/17 12:14 Dose: 4 units Insulin Detemir (Levemir Vial) 25 units SQ HS [facility] Last Admin: 08/16/17 21:15 Dose: 25 units Lisinopril (Prinivil) 5 mg PO DAILY [facility] Last Admin: 08/17/17 09:17 Dose: 5 mg Metformin HCl (Glucophage -) 1,000 mg PO BIDI [facility] Last Admin: 08/17/17 06:32 Dose: 1,000 mg Metoprolol Tartrate (Lopressor -) 25 mg PO BID [facility] Last Admin: 08/17/17 09:16 Dose: 25 mg Nicotine (Nicoderm Patch -) 7 mg TD DAILY [facility] Last Admin: 08/17/17 09:16 Dose: 7 mg Ondansetron HCl (Zofran Injection) 4 mg IVPUSH Q6H PRN PRN Reason: NAUSEA AND/OR VOMITING Sitagliptin Phosphate (Januvia -) 100 mg PO DAILY@0700 [facility] Last Admin: 08/17/17 06:32 Dose: 100 mg Warfarin Sodium (Coumadin -) 7.5 mg PO DAILY@1800 [facility] Physical Exam GENERAL: Awake, alert, and fully oriented, in no acute distress. HEAD: Normal with no signs of trauma. EYES: Pupils equal, round and reactive to light, extraocular movements intact, sclera anicteric, conjunctiva clear. EARS, NOSE, THROAT: Ears normal, nares patent, oropharynx clear without exudates. Moist mucous membranes. NECK: Normal range of motion, supple without lymphadenopathy, JVD, or masses. LUNGS: Breath sounds equal, clear to auscultation bilaterally. No wheezes, and no crackles. HEART: Tachycardic- S1 and S2 . ABDOMEN: Obese, Soft, nontender, not distended, normoactive bowel sounds, no guarding, no rebound, no masses. MUSCULOSKELETAL: Normal range of motion at all joints. No bony deformities or tenderness. No CVA tenderness. UPPER EXTREMITIES: 2+ pulses, warm, well-perfused. No peripheral edema. LOWER EXTREMITIES: (+) DP pulse on Right. No calf tenderness, peripheral edema NEUROLOGICAL: Non-focal PSYCHIATRIC: Cooperative. Laboratory Results - last 24 hr 08/16/17 08/16/17 08/16/17 12:07 16:58 17:00 WBC RBC Hgb Hct MCV MCH MCHC RDW Plt Count MPV Neutrophils % Lymphocytes % Monocytes % Eosinophils % Basophils % PT with INR INR PTT (Actin FS) 32.2 Sodium Potassium Chloride Carbon Dioxide Anion Gap BUN Creatinine Creat Clearance w eGFR POC Glucometer 270.07013 292.59574 Random Glucose Calcium Ferritin Total Bilirubin AST ALT Alkaline Phosphatase Total Protein Albumin 08/16/17 08/17/17 08/17/17 21:00 03:40 06:30 WBC RBC Hgb Hct MCV MCH MCHC RDW Plt Count MPV Neutrophils % Lymphocytes % Monocytes % Eosinophils % Basophils % PT with INR INR PTT (Actin FS) 36.1 H 125.8 H D Sodium Potassium Chloride Carbon Dioxide Anion Gap BUN Creatinine Creat Clearance w eGFR POC Glucometer 184.39876 Random Glucose Calcium Ferritin Total Bilirubin AST ALT Alkaline Phosphatase Total Protein Albumin 08/17/17 08/17/17 08/17/17 06:30 06:30 06:30 WBC 9.6 RBC 3.94 L Hgb 10.6 L Hct 31.5 L MCV 79.9 L MCH 26.8 MCHC 33.6 RDW 13.3 Plt Count 530 H MPV 7.8 Neutrophils % 61.5 Lymphocytes % 24.6 Monocytes % 10.6 H Eosinophils % 2.4 Basophils % 0.9 PT with INR 12.50 H INR 1.11 PTT (Actin FS) Sodium 139 Potassium 3.8 Chloride 103 Carbon Dioxide 24 Anion Gap 12 BUN 8 Creatinine 0.9 Creat Clearance w eGFR > 60 POC Glucometer Random Glucose 221 H Calcium 8.3 L Ferritin 560.100 H Total Bilirubin 0.5 D AST 81 H D ALT 53 Alkaline Phosphatase 86 Total Protein 6.5 Albumin 2.2 L 08/17/17 08/17/17 06:32 11:01 WBC RBC Hgb Hct MCV MCH MCHC RDW Plt Count MPV Neutrophils % Lymphocytes % Monocytes % Eosinophils % Basophils % PT with INR INR PTT (Actin FS) 51.2 H D Sodium Potassium Chloride Carbon Dioxide Anion Gap BUN Creatinine Creat Clearance w eGFR POC Glucometer [phone] Random Glucose Calcium Ferritin Total Bilirubin AST ALT Alkaline Phosphatase Total Protein Albumin Assessment/Plan 47 M, poorly controlled DM, 25 year 1/2 PPD smoker, CAD (PCI 4 years ago) Occluded mid to distal popilteal artery IV Heparin / Coumadin bridge O2 as needed PT Pain control Incentive Spirometry Smoking cessation again counseled Dr Galeano
[2017-08-17] MEDS ORDERED: WARFARIN NA 7.5 MG TABLET (FP) PO SCH (18:00)
[2017-08-17] MEDS: ATORVASTATIN CA 40 MG TABLET (FP) PO SCH (21:39)
[2017-08-17] MEDS: CHLORHEXIDINE GLUCONATE 4% CLEANSER FOR DECOLONIZATION TP SCH (21:43)
[2017-08-17] MEDS: INSULIN DETEMIR 100 UNITS/ML MDV SQ SCH (21:54)
[2017-08-18] MEDS: metFORMIN HCL 500 MG TABLET (FP) PO SCH ×2 (06:09→17:06)
[2017-08-18] MEDS: INSULIN SLIDING SCALE (NOVOLOG) 1 VIAL SQ SCH ×4 (06:10→21:25)
[2017-08-18] MEDS: sitaGLIPtin PHOSPHATE 100 MG TABLET (FP) PO SCH (06:10)
[2017-08-18 06:33] LABS: HEMATOCRIT 30.2 % (35.4-49); HEMOGLOBIN 10.3 GM/dL (11.7-16.9); MCH 27.1 pg (25.7-33.7); MCHC 34.1 g/dl (32.0-35.9); MEAN CELL VOLUME 79.7 fl (80-96); MEAN PLT VOLUME 7.8 fl (7.5-11.1); PLATELET COUNT 610 K/MM3 (134-434); RBC 3.79 M/mm3 (4.00-5.60); RDW 13.7 % (11.9-15.9); WHITE BLOOD COUNT 9.7 K/mm3 (4.0-10.0)
[2017-08-18 06:39] LABS: INR 1.18 (0.82-1.09); PROTHROMBIN TIME (PATIENT) 13.3 SEC (9.98-11.88)
[2017-08-18 06:56] LABS: CHLORIDE 105 mmol/L (98-107); POTASSIUM 3.9 mmol/L (3.5-5.1); SODIUM 141 mmol/L (136-145)
[2017-08-18] MEDS ORDERED: glyBURIDE 5 MG TABLET (UD) PO SCH (07:00)
[2017-08-18 07:05] LABS: ALBUMIN 2.2 g/dl (3.4-5.0); ALK PHOS 82 U/L (45-117); ANION GAP 12 (8-16); BILIRUBIN,TOTAL 0.2 mg/dL (0.2-1.0); BLOOD UREA NITROGEN 7 mg/dL (7-18); CALCIUM 8.8 mg/dL (8.5-10.1); CO2 24 mmol/L (21-32); CREATININE 0.8 mg/dL (0.7-1.3); GLUCOSE,RANDOM 120 mg/dL (74-106); SGOT/AST 56 U/L (15-37); SGPT/ALT 47 U/L (12-78); TOT PROT 6.3 g/dl (6.4-8.2)
[2017-08-18] MEDS ORDERED: PT OWN MED DRAWER 7, Y5N ONE (09:19)
[2017-08-18] MEDS: METOPROLOL TARTRATE 25 MG TABLET (FP) PO SCH ×2 (09:26→21:24)
[2017-08-18] MEDS: LISINOPRIL 5 MG TABLET (FP) PO SCH (09:26)
[2017-08-18] MEDS: ASPIRIN 81 MG CHEWABLE TABLETS PO SCH (09:26)
[2017-08-18] MEDS: NICOTINE 7 MG/24 HOURS TOPICAL PATCH TD SCH (09:27)
--- NOTE | 2017-08-18 11:11 | PN ---
Progress Note (short form) - Note Progress Note: Vascular Surgery Pt seen and examined. Right leg is warm, pink. Palpable PT pulse. AC -- on coumadin. Agreesive physical therapy. Morgan Chandler DO
--- NOTE | 2017-08-18 11:49 | PN ---
Teaching Attending Note Name of Resident: Kt Gomez ATTENDING PHYSICIAN STATEMENT I saw and evaluated the patient. I reviewed the resident's note and discussed the case with the resident. I agree with the resident's findings and plan as documented. SUBJECTIVE:pain controlled with pain medication. denies Cp, SOB, fefver, chills , N/V/C/D OBJECTIVE: Last Vital Signs Temp Pulse Resp BP Pulse Ox 98.2 F 88 20 139/90 98 08/18/17 02:17 08/18/17 07:22 08/18/17 07:23 08/18/17 07:22 08/18/17 07:23 General NAD Extremities RLE mild swelling, tenderness on calf. pulses appreciated with doppler ASSESSMENT AND PLAN: 47yo M wtih PMH DM, CAD s/p stents, dyslipidemia and conitnuous tobacco dependence presented with RLE pain and found to have acute thrombus 1. Acute R popliteal aterial thrombus- s/p TPA and angioplasty on 08/12. continues to have some pain. on heparin ggt with coumadin bridge day 4. will increase coumadin to 10mg today. oob to chair. on statin. walked 45ft with PT. 2. Normocytica anemia- Hgb stable. no indication for transfusion at this time. iron studies pending. monitor 3. DM- uncontrolled. A1c >15.5. still requiring high insulin coverage. started on januvia, glyburide and metformin. will slowly decrease levemir to evaluate control with oral agents. SW to see if hes medicaid applicable to assist with prescription insurance. counseled by dietary on lifestyle changes 4. Dyslipidemia- on statin 5. Continuous nicotine dependence- nicotine patch. counselled on tobacco cessation 6. CAD s/p stents 7. Sinus tachycardia-improved. 8. Obesity- BMI 36.8. lifestyle changes. diet and exercise with goal of 1 lb / week 9. DVT ppx- hep-coumadin bridge 10. PT eval. stressed importance of lifestyle changes and medication compliance and follow up. verbalized agreement and understanding.
--- NOTE | 2017-08-18 12:41 | PN ---
Physical Exam: SUBJECTIVE: Patient seen and examined No acute events overnight. Pt reports that pain is still well controlled at a 6/ 10 without any pain meds. He reports walking with PT which led to more pain. He denies chest pain, SOB, abdominal pain, n/v/d/c, and dysuria. OBJECTIVE: Vital Signs Period Temp Pulse Resp BP Sys/Miller Pulse Ox Last 24 Hr 98.1 F-98.8 F 87-96 19-20 121-140/80-94 98-98 GENERAL: middle aged male, awake, alert, and fully oriented, in no acute distress. HEENT: NC, AT LUNGS: Breath sounds equal, clear to auscultation bilaterally, no wheezes, no crackles, no accessory muscle use. HEART: Regular rate and rhythm, S1, S2 without murmur, rub or gallop. ABDOMEN: Soft, nontender, nondistended, normoactive bowel sounds, no guarding, no rebound, no hepatosplenomegaly, no masses. EXTREMITIES: right calf is swollen and tender to palpation. RLE is warm to touch. pain upon movement of toes in RLE. sensory function intact. DP and PT pulses easily appreciated on doppler NEUROLOGICAL: Cranial nerves II through XII grossly intact. Normal speech, gait not observed. Laboratory Results - last 24 hr 08/17/17 08/17/17 08/17/17 15:30 17:07 21:37 WBC RBC Hgb Hct MCV MCH MCHC RDW Plt Count MPV PT with INR INR PTT (Actin FS) 38.7 H Sodium Potassium Chloride Carbon Dioxide Anion Gap BUN Creatinine Creat Clearance w eGFR POC Glucometer 112.05648 121.41223 Random Glucose Calcium Total Bilirubin AST ALT Alkaline Phosphatase Total Protein Albumin 08/18/17 08/18/17 08/18/17 00:15 05:27 05:27 WBC 9.7 RBC 3.79 L Hgb 10.3 L Hct 30.2 L MCV 79.7 L MCH 27.1 MCHC 34.1 RDW 13.7 Plt Count 610 H MPV 7.8 PT with INR INR PTT (Actin FS) 50.5 H D 47.7 H Sodium Potassium Chloride Carbon Dioxide Anion Gap BUN Creatinine Creat Clearance w eGFR POC Glucometer Random Glucose Calcium Total Bilirubin AST ALT Alkaline Phosphatase Total Protein Albumin 08/18/17 08/18/17 08/18/17 05:27 05:27 05:43 WBC RBC Hgb Hct MCV MCH MCHC RDW Plt Count MPV PT with INR 13.30 H INR 1.18 H PTT (Actin FS) Sodium 141 Potassium 3.9 Chloride 105 Carbon Dioxide 24 Anion Gap 12 BUN 7 Creatinine 0.8 Creat Clearance w eGFR > 60 POC Glucometer 147.60554 Random Glucose 120 H D Calcium 8.8 Total Bilirubin 0.2 D AST 56 H D ALT 47 Alkaline Phosphatase 82 Total Protein 6.3 L Albumin 2.2 L 08/18/17 12:07 WBC RBC Hgb Hct MCV MCH MCHC RDW Plt Count MPV PT with INR INR PTT (Actin FS) Sodium Potassium Chloride Carbon Dioxide Anion Gap BUN Creatinine Creat Clearance w eGFR POC Glucometer 80.63224 Random Glucose Calcium Total Bilirubin AST ALT Alkaline Phosphatase Total Protein Albumin Active Medications Generic Name Dose Route Start Last Admin Trade Name Freq PRN Reason Stop Dose Admin Acetaminophen 650 mg 08/16/17 01:08 08/16/17 21:21 Tylenol - PO 650 mg Q6H PRN Administration FEVER Albuterol Sulfate 1 amp 08/11/17 23:33 Ventolin 0.083% Nebulizer Soln - NEB Q4H PRN SHORT OF BREATH/WHEEZING Aspirin 81 mg 08/16/17 13:45 08/18/17 09:26 Asa - PO 81 mg DAILY MARYJO Administration Atorvastatin Calcium 40 mg 08/11/17 22:00 08/17/17 21:39 Lipitor - PO 40 mg HS MARYJO Administration Chlorhexidine Gluconate 1 applic 08/11/17 22:00 08/17/17 21:43 Hibiclens For Decolonization - TP Not Given HS MARYJO Glyburide 5 mg 08/18/17 07:00 08/18/17 06:32 Diabeta - PO 5 mg DAILY@0700 MARY[facility] Administration Heparin Sodium (Porcine) 1,000 unit 08/12/17 19:12 Heparin - IVPUSH PRN PRN Heparin Heparin Sodium (Porcine) 5,000 unit 08/12/17 19:12 08/17/17 17:14 Heparin - IVPUSH 5,000 unit PRN PRN Administration Heparin Heparin Sodium (Porcine) 25, 500 mls @ 20 mls/hr 08/12/17 19:15 08/18/17 09: 26 000 unit/ Sodium Chloride IV 2,200 unit/hr TITR MARYJO 44 mls/hr Protocol Titration 1,000 UNIT/HR Insulin Aspart 1 vial 08/11/17 16:30 08/18/17 12:10 Novolog Vial Sliding Scale - SQ Not Given [facility] Protocol Insulin Detemir 20 units 08/18/17 12:19 Levemir Vial SQ HS [facility] Lisinopril 5 mg 08/12/17 10:00 08/18/17 09:26 Prinivil PO 5 mg DAILY [facility] Administration Metformin HCl 1,000 mg 08/16/17 16:30 08/18/17 06:09 Glucophage - PO 1,000 mg BIDI [facility] Administration Metoprolol Tartrate 25 mg 08/11/17 22:00 08/18/17 09:26 Lopressor - PO 25 mg BID [facility] Administration Nicotine 7 mg 08/12/17 10:00 08/18/17 09:27 Nicoderm Patch - TD 7 mg DAILY [facility] Administration Ondansetron HCl 4 mg 08/11/17 15:12 Zofran Injection IVPUSH Q6H PRN NAUSEA AND/OR VOMITING Sitagliptin Phosphate 100 mg 08/17/17 07:00 08/18/17 06:10 Januvia - PO 100 mg DAILY@0700 [facility] Administration Warfarin Sodium 10 mg 08/18/17 18:00 Coumadin - PO DAILY@1800 [facility] ASSESSMENT/PLAN: 47M w/ hx of DM, HTN, and CAD s/p stents who presented with a cold and painful RLE, found to have evidence of right popliteal artery occlusion on LE duplex and CTA aorta, admitted for revascularization. Pt is s/p TPA on 08/11 and s/p thrombolysis on 08/12 due to lost pulses, currently undergoing a heparin to coumadin bridge. #R popliteal artery occlusion -s/p TPA on 08/11 and s/p thrombolysis on 08/12 due to lost pulses, currently undergoing a heparin to coumadin bridge. -increased coumadin to 10 -INR of 1.18 -Vascular consult-Dr Chandler on board, recs appreciated -Pain tolerated without pain meds -Diabetic/sodium restricted diet -Lipitor 40mg daily HS -PT- walked 45 feet, rec home with assistance #DM- uncontrolled -levemir decreased back to 20U -continue januvia, metformin, and glyburide. Pt has no insurance and will not be able to afford insulin upon discharge. -ISS- ACHS -BGM-ACHS -DM education -Diabetic/sodium restricted diet #Anemia -Hgb of 10.3 today -ferritin: elevated at 560 -f/u other iron studies #thrombocytosis -platelets of 610 -continue to monitor for now #Transaminitis- resolving -likely 2/2 recent procedures -AST down to 56 #HTN: -continue lisinopril 5mg daily #CAD s/p stents -continue ASA #Tobacco use: -Nicotine patch 7 TD -Counseling #FEN/ppx -po fluids -electrolytes wnl -Diabetic/sodium restricted diet -no GI ppx indicated -heparin to coumadin bridge #Dispo -pending therapeutic INR Case discussed with attending, Dr. Palacio. -Kt Gomez MD PGY1 Visit type - Emergency Visit Emergency Visit: Yes ED Registration Date: 08/10/17 Care time: The patient presented to the Emergency Department on the above date and was hospitalized for further evaluation of their emergent condition. - New Patient This patient is new to me today: No - Critical Care Critical Care patient: No
--- NOTE | 2017-08-18 16:18 | OP ---
DATE OF OPERATION: 08/11/2017 PREOPERATIVE DIAGNOSIS: Right lower extremity thrombosis. POSTOPERATIVE DIAGNOSIS: Right lower extremity thrombosis. PROCEDURE: Aortogram, right lower extremity angiogram, infusion of tissue plasminogen activator. FINDINGS: Thrombus in popliteal artery, tibioperoneal trunk, tibial arteries. SURGEON: Morgan Barragan DO ANESTHESIA: Fractional. BLOOD LOSS: 25 mL INDICATION FOR PROCEDURE: The patient is a 47-year-old male who comes in with a history of diabetes that has been uncontrolled due to the fact that he does not take any of his medications. He claims that he cannot afford his medications and thus does not take his insulin. Patient is also a smoker for 25 years, smokes 1 pack a day. Patient claims that yesterday he was at [facility] and he was walking around, and all of a sudden developed pain in his right leg. It felt like the leg was cool to touch as well. He decided to come into the hospital. Once he came into the hospital, he was admitted to the ER, and he had a CTA performed showing that he has a right popliteal artery occlusion. On examination, patient had good motor and sensory intact. He had palpable pulses in his left lower extremity, had palpable popliteal pulse in his right lower extremity but no pedal pulses that were palpable. At this point, we decided that he would need a diagnostic angiogram. Patient was consented for the procedure, understanding all risks, benefits, and alternatives. He was then taken to the operating room. DESCRIPTION OF PROCEDURE: Once in the operating room, he was laid on the operating table in supine manner, and the areas of the right and left groins were prepped and draped in a sterile surgical manner. We then injected 10 mL of lidocaine 1% over the left common femoral artery. We then went ahead and punctured the left common femoral artery using our micropuncture needle. A micropuncture wire was inserted. Micropuncture sheath was inserted. A traditional 5-Sammarinese sheath was inserted. We then placed a 0.035 floppy guidewire up into the aorta, followed by an Omni Flush catheter. We then shot an aortogram via hand injection, showing that the aorta and the iliac arteries were without any disease. We then placed our 0.035 floppy guidewire up and over to the right common femoral artery, and our Omni Flush catheter followed. We then shot an angiogram of the right lower extremity, showing that the common femoral artery, the profunda, and the SFA were patent, but the popliteal artery above the knee was occluded or thrombosed because there was a cutoff sign and there was no below-knee popliteal artery and there was no TP trunk and the next visualized artery was the posterior tibial artery going down into the foot. At this point, we placed a 0.035 stiff guidewire into the SFA, removed our Omni Flush catheter. We then placed a 6 x 45 Crossover sheath, and 5000 units of IV heparin were administered to the patient. We then brought our wire down to our occlusion, and the wire went straight through the occlusion into the posterior tibial artery without any resistance. At this point, we realized that this is clot. Another angiogram was taken via hand injection, showing that it is indeed clot in the popliteal and tibial system. At this point, we decided that the patient would need infusion of tissue plasminogen activator overnight. At this point, we went ahead and placed an EKOS thrombolysis catheter down across the popliteal artery. We then went ahead and infused 1 mg of tissue plasminogen activator an hour and IV heparin peripherally. The catheter was then secured. Through fluoroscopy, we confirmed that the catheter was behind the knee. We then went ahead and placed Tegaderms over the left groin to make sure that the catheter remained sterile. Patient was then brought to the recovery room and then brought to the ICU for surveillance overnight, and the patient will be brought back for a thrombolysis check tomorrow. Patient tolerated this part of the procedure without any complications and was transferred to PACU in stable condition. Total blood loss: 25 mL. MORGAN BARRAGAN DO [id number]
[2017-08-18] MEDS: HEPARIN - 25,000 UNIT in SODIUM CHLORIDE 495 ML IV SCH ×2 (17:05→22:00)
[2017-08-18] MEDS: WARFARIN NA 5 MG TABLET (UD) PO SCH (18:08)
[2017-08-18] MEDS ORDERED: HEPARIN NA (PORCINE) 5,000 UNITS/ML 1ML VIAL IVPUSH PRN ×3 (19:43)
[2017-08-18] MEDS ORDERED: ACETAMINOPHEN 325 MG TABLET (FP) PO PRN (19:43)
[2017-08-18] MEDS ORDERED: ONDANSETRON 4 MG/2 ML VIAL IVPUSH PRN (19:43)
[2017-08-18] MEDS ORDERED: ALBUTEROL SO4 0.083% IH SOL 2.5 MG/3 ML VIAL.NEB. NEB PRN (19:43)
[2017-08-18] MEDS ORDERED: INSULIN (NOVOLOG) ASPART 100 UNITS/ML 10ML VIAL ONE (21:04)
[2017-08-18] MEDS: ATORVASTATIN CA 40 MG TABLET (FP) PO SCH (21:24)
[2017-08-18 21:26] LABS: HEMATOCRIT 30.9 % (35.4-49); HEMOGLOBIN 10.5 GM/dL (11.7-16.9); MCH 26.9 pg (25.7-33.7); MCHC 33.9 g/dl (32.0-35.9); MEAN CELL VOLUME 79.4 fl (80-96); MEAN PLT VOLUME 7.2 fl (7.5-11.1); PLATELET COUNT 611 K/MM3 (134-434); RBC 3.89 M/mm3 (4.00-5.60); RDW 13.6 % (11.9-15.9); WHITE BLOOD COUNT 10.9 K/mm3 (4.0-10.0)
[2017-08-18] MEDS ORDERED: CHLORHEXIDINE GLUCONATE 4% CLEANSER FOR DECOLONIZATION TP SCH (22:00)
[2017-08-18] MEDS ORDERED: INSULIN DETEMIR 100 UNITS/ML MDV SQ SCH (22:00)
[2017-08-19 00:07] LABS: SERUM IRON SATURATION 14 % (15-55); TOTAL IRON BINDING CAPACITY 211 ug/dL (250-450); UIBC 181 ug/dL (111-343)
[2017-08-19] MEDS: HEPARIN - 25,000 UNIT in SODIUM CHLORIDE 495 ML IV SCH ×2 (04:00→15:05)
[2017-08-19] MEDS: glyBURIDE 5 MG TABLET (UD) PO SCH (06:31)
[2017-08-19] MEDS: metFORMIN HCL 500 MG TABLET (FP) PO SCH ×2 (06:31→17:13)
[2017-08-19] MEDS: sitaGLIPtin PHOSPHATE 100 MG TABLET (FP) PO SCH (06:31)
[2017-08-19] MEDS: INSULIN SLIDING SCALE (NOVOLOG) 1 VIAL SQ SCH ×4 (06:35→21:22)
[2017-08-19 08:37] LABS: INR 1.51 (0.82-1.09); PROTHROMBIN TIME (PATIENT) 17.1 SEC (9.98-11.88)
[2017-08-19] MEDS: LISINOPRIL 5 MG TABLET (FP) PO SCH (09:29)
[2017-08-19] MEDS: NICOTINE 7 MG/24 HOURS TOPICAL PATCH TD SCH (09:29)
[2017-08-19] MEDS: METOPROLOL TARTRATE 25 MG TABLET (FP) PO SCH ×2 (09:29→21:24)
[2017-08-19] MEDS: ASPIRIN 81 MG CHEWABLE TABLETS PO SCH (09:29)
[2017-08-19] MEDS: HEPARIN NA (PORCINE) 5,000 UNITS/ML 1ML VIAL IVPUSH PRN (09:44)
[2017-08-19] MEDS ORDERED: INSULIN DETEMIR 100 UNITS/ML MDV SQ SCH (10:32)
--- NOTE | 2017-08-19 11:16 | PN ---
Teaching Attending Note Name of Resident: Kt Gomez ATTENDING PHYSICIAN STATEMENT I saw and evaluated the patient. I reviewed the resident's note and discussed the case with the resident. I agree with the resident's findings and plan as documented. SUBJECTIVE:asymptomatic. denies Cp, SOB, fever, chills, N/V/C/D, pain or cold/ numb in the R foot OBJECTIVE: Last Vital Signs Temp Pulse Resp BP Pulse Ox 98.8 F 100 H 20 138/88 98 08/19/17 05:45 08/19/17 05:45 08/19/17 05:45 08/19/17 05:45 08/18/17 21:00 General NAD Extremities RLE mild swelling, tenderness on calf. pulses appreciated with doppler ASSESSMENT AND PLAN: 47yo M wtih PMH DM, CAD s/p stents, dyslipidemia and conitnuous tobacco dependence presented with RLE pain and found to have acute thrombus 1. Acute R popliteal aterial thrombus- s/p TPA and angioplasty on 08/12. continues to have some pain. on heparin ggt with coumadin bridge. will cont current dosing. encouraged OOB. on statin. walked 45ft with PT. 2. Anemia of chronic disease- Hgb stable. no indication for transfusion at this time. 3. DM- improved. A1c >15.5. no coverage. reduce levemir to 10 units. cont oral agents. counseled by dietary on lifestyle changes 4. Dyslipidemia- on statin 5. Continuous nicotine dependence- nicotine patch. counselled on tobacco cessation 6. CAD s/p stents 7. Sinus tachycardia-improved. 8. Obesity- BMI 36.8. lifestyle changes. diet and exercise with goal of 1 lb / week 9. DVT ppx- hep-coumadin bridge 10. PT eval. stressed importance of lifestyle changes and medication compliance and follow up. verbalized agreement and understanding.
--- NOTE | 2017-08-19 13:54 | PN ---
Physical Exam: SUBJECTIVE: Patient seen and examined No acute events overnight. Pt reports that pain is still well controlled at a 6/ 10 without any pain meds OBJECTIVE: Vital Signs Period Temp Pulse Resp BP Sys/Miller Pulse Ox Last 24 Hr 98.4 F-98.8 F 86-116 18-20 125-150/85-99 98-98 GENERAL: middle aged male, awake, alert, and fully oriented, in no acute distress. HEENT: NC, AT LUNGS: Breath sounds equal, clear to auscultation bilaterally, no wheezes, no crackles, no accessory muscle use. HEART: Regular rate and rhythm, S1, S2 without murmur, rub or gallop. ABDOMEN: Soft, nontender, nondistended, normoactive bowel sounds, no guarding, no rebound, no hepatosplenomegaly, no masses. EXTREMITIES: right calf is still swollen and tender to palpation. RLE is warm to touch. pain upon movement of toes in RLE. sensory function intact. DP and PT pulses easily appreciated on doppler NEUROLOGICAL: Cranial nerves II through XII grossly intact. Normal speech, gait not observed. Laboratory Results - last 24 hr 08/17/17 08/18/17 08/18/17 06:30 16:00 21:00 WBC 10.9 H RBC 3.89 L Hgb 10.5 L Hct 30.9 L MCV 79.4 L MCH 26.9 MCHC 33.9 RDW 13.6 Plt Count 611 H MPV 7.2 L PT with INR INR PTT (Actin FS) 44.7 H POC Glucometer Iron 30 L TIBC 211 L Iron Saturation 14 L 08/18/17 08/18/17 08/19/17 21:00 21:24 06:30 WBC RBC Hgb Hct MCV MCH MCHC RDW Plt Count MPV PT with INR INR PTT (Actin FS) 52.8 H POC Glucometer 124 128 Iron TIBC Iron Saturation 08/19/17 08/19/17 08/19/17 07:45 07:45 11:19 WBC RBC Hgb Hct MCV MCH MCHC RDW Plt Count MPV PT with INR 17.10 H INR 1.51 H PTT (Actin FS) 33.6 D POC Glucometer 76 Iron TIBC Iron Saturation Active Medications Generic Name Dose Route Start Last Admin Trade Name Freq PRN Reason Stop Dose Admin Acetaminophen 650 mg 08/18/17 19:43 Tylenol - PO Q6H PRN FEVER Albuterol Sulfate 1 amp 08/18/17 19:43 Ventolin 0.083% Nebulizer Soln - NEB Q4H PRN SHORT OF BREATH/WHEEZING Aspirin 81 mg 08/19/17 10:00 08/19/17 09:29 Asa - PO 81 mg DAILY [facility] Administration Atorvastatin Calcium 40 mg 08/18/17 22:00 08/18/17 21:24 Lipitor - PO 40 mg HS [facility] Administration Glyburide 5 mg 08/19/17 07:00 08/19/17 06:31 Diabeta - PO 5 mg DAILY@0700 [facility] Administration Heparin Sodium (Porcine) 1,000 unit 08/18/17 19:43 Heparin - IVPUSH PRN PRN Heparin Heparin Sodium (Porcine) 5,000 unit 08/18/17 19:43 08/19/17 09:44 Heparin - IVPUSH 5,000 unit PRN PRN Administration Heparin Heparin Sodium (Porcine) 25, 500 mls @ 20 mls/hr 08/18/17 19:43 08/19/17 09: 44 000 unit/ Sodium Chloride IV 2,450 unit/hr TITR MARYJO 49 mls/hr Protocol Titration 1,000 UNIT/HR Insulin Aspart 1 vial 08/18/17 22:00 08/19/17 11:20 Novolog Vial Sliding Scale - SQ Not Given ACHS [facility] Protocol Insulin Detemir 10 units 08/19/17 10:32 Levemir Vial SQ [facility] Lisinopril 5 mg 08/19/17 10:00 08/19/17 09:29 Prinivil PO 5 mg DAILY [facility] Administration Metformin HCl 1,000 mg 08/19/17 07:00 08/19/17 06:31 Glucophage - PO 1,000 mg BIDI [facility] Administration Metoprolol Tartrate 25 mg 08/18/17 22:00 08/19/17 09:29 Lopressor - PO 25 mg BID [facility] Administration Nicotine 7 mg 08/19/17 10:00 08/19/17 09:29 Nicoderm Patch - TD Not Given DAILY [facility] Ondansetron HCl 4 mg 08/18/17 19:43 Zofran Injection IVPUSH Q6H PRN NAUSEA AND/OR VOMITING Sitagliptin Phosphate 100 mg 08/19/17 07:00 08/19/17 06:31 Januvia - PO 100 mg DAILY@0700 [facility] Administration Warfarin Sodium 10 mg 08/18/17 18:00 08/18/17 18:08 Coumadin - PO 10 mg DAILY@1800 [facility] Administration ASSESSMENT/PLAN: 47M w/ hx of DM, HTN, and CAD s/p stents who presented with a cold and painful RLE, found to have evidence of right popliteal artery occlusion on LE duplex and CTA aorta, admitted for revascularization. Pt is s/p TPA on 08/11 and s/p thrombolysis on 08/12 due to lost pulses, currently undergoing a heparin to coumadin bridge. #R popliteal artery occlusion -s/p TPA on 08/11 and s/p thrombolysis on 08/12 due to lost pulses, currently undergoing a heparin to coumadin bridge. -continue coumadin 10 -INR of 1.51, up from 1.18 -Vascular consult-Dr Chandler on board, recs appreciated -Pain tolerated without pain meds -Diabetic/sodium restricted diet -Lipitor 40mg daily HS -PT- walked 45 feet, rec home with assistance #DM- uncontrolled -levemir decreased back to 10U -continue januvia, metformin, and glyburide. Pt has no insurance and will not be able to afford insulin upon discharge. -ISS- ACHS -BGM-ACHS -DM education -Diabetic/sodium restricted diet #Anemia -Hgb of 10.5 today -ferritin: elevated at 560 -f/u other iron studies #thrombocytosis -platelets of 610--> 611 -continue to monitor for now #Transaminitis- resolving -likely 2/2 recent procedures -AST down to 56 as of last lab #HTN: -continue lisinopril 5mg daily #CAD s/p stents -continue ASA #Tobacco use: -Nicotine patch 7 TD -Counseling #FEN/ppx -po fluids -electrolytes wnl -Diabetic/sodium restricted diet -no GI ppx indicated -heparin to coumadin bridge #Dispo -pending therapeutic INR Case discussed with attending, Dr. Palacio. -Kt Gomez MD PGY1 Visit type - Emergency Visit Emergency Visit: Yes ED Registration Date: 08/10/17 Care time: The patient presented to the Emergency Department on the above date and was hospitalized for further evaluation of their emergent condition. - New Patient This patient is new to me today: No - Critical Care Critical Care patient: No
[2017-08-19] MEDS ORDERED: PT OWN MED DRAWER 7, Y5N ONE (15:42)
[2017-08-19] MEDS ORDERED: INSULIN (NOVOLOG) ASPART 100 UNITS/ML 10ML VIAL ONE (16:47)
[2017-08-19] MEDS: WARFARIN NA 5 MG TABLET (UD) PO SCH (17:46)
[2017-08-19 20:02] LABS: HEMATOCRIT 32.5 % (35.4-49); HEMOGLOBIN 10.7 GM/dL (11.7-16.9); MCH 26.2 pg (25.7-33.7); MEAN CELL VOLUME 79.3 fl (80-96); MEAN PLT VOLUME 7.4 fl (7.5-11.1); PLATELET COUNT 696 K/MM3 (134-434); RBC 4.09 M/mm3 (4.00-5.60); RDW 13.8 % (11.9-15.9); WHITE BLOOD COUNT 11.3 K/mm3 (4.0-10.0)
[2017-08-19] MEDS: ATORVASTATIN CA 40 MG TABLET (FP) PO SCH (21:23)
[2017-08-20] MEDS: HEPARIN - 25,000 UNIT in SODIUM CHLORIDE 495 ML IV SCH (01:53)
[2017-08-20] MEDS: metFORMIN HCL 500 MG TABLET (FP) PO SCH ×2 (06:21→17:33)
[2017-08-20] MEDS: sitaGLIPtin PHOSPHATE 100 MG TABLET (FP) PO SCH (06:21)
[2017-08-20] MEDS: glyBURIDE 5 MG TABLET (UD) PO SCH (06:21)
[2017-08-20] MEDS: INSULIN SLIDING SCALE (NOVOLOG) 1 VIAL SQ SCH ×4 (06:31→21:55)
[2017-08-20 08:10] LABS: BASO % 1.3 % (0-2.0); EOS % 2.3 % (0-4.5); HEMATOCRIT 31.5 % (35.4-49); HEMOGLOBIN 10.6 GM/dL (11.7-16.9); LYMPH % 29.3 % (8-40); MCH 26.7 pg (25.7-33.7); MCHC 33.7 g/dl (32.0-35.9); MEAN CELL VOLUME 79.4 fl (80-96); MEAN PLT VOLUME 7.2 fl (7.5-11.1); MONO % 9.5 % (3.8-10.2); NEUT % 57.6 % (42.8-82.8); PLATELET COUNT 688 K/MM3 (134-434); RBC 3.97 M/mm3 (4.00-5.60); RDW 13.7 % (11.9-15.9); WHITE BLOOD COUNT 10.2 K/mm3 (4.0-10.0)
[2017-08-20 08:27] LABS: INR 1.95 (0.82-1.09)
[2017-08-20] MEDS ORDERED: PT OWN MED DRAWER 7, Y5N ONE ×2 (09:35→22:33)
[2017-08-20] MEDS: NICOTINE 7 MG/24 HOURS TOPICAL PATCH TD SCH (09:40)
[2017-08-20] MEDS: METOPROLOL TARTRATE 25 MG TABLET (FP) PO SCH ×2 (09:41→21:54)
[2017-08-20] MEDS: LISINOPRIL 5 MG TABLET (FP) PO SCH (09:41)
[2017-08-20] MEDS: ASPIRIN 81 MG CHEWABLE TABLETS PO SCH (09:41)
--- NOTE | 2017-08-20 10:13 | PN ---
Progress Note (short form) - Note Progress Note: continues to have RLE pain but improved. kaushals Cp, SOB< fever, chills, N/v/C/D Current Medications Generic Name Dose Route Start Last Admin Trade Name Freq PRN Reason Stop Dose Admin Acetaminophen 650 mg 08/18/17 19:43 Tylenol - PO Q6H PRN FEVER Albuterol Sulfate 1 amp 08/18/17 19:43 Ventolin 0.083% Nebulizer Soln - NEB Q4H PRN SHORT OF BREATH/WHEEZING Aspirin 81 mg 08/19/17 10:00 08/20/17 09:41 Asa - PO 81 mg DAILY [facility] Administration Atorvastatin Calcium 40 mg 08/18/17 22:00 08/19/17 21:23 Lipitor - PO 40 mg HS [facility] Administration Glyburide 5 mg 08/19/17 07:00 08/20/17 06:21 Diabeta - PO 5 mg DAILY@0700 [facility] Administration Heparin Sodium (Porcine) 1,000 unit 08/18/17 19:43 Heparin - IVPUSH PRN PRN Heparin Heparin Sodium (Porcine) 5,000 unit 08/18/17 19:43 08/19/17 09:44 Heparin - IVPUSH 5,000 unit PRN PRN Administration Heparin Heparin Sodium (Porcine) 25, 500 mls @ 20 mls/hr 08/18/17 19:43 08/20/17 01: 53 000 unit/ Sodium Chloride IV 2,450 unit/hr TITR MARYJO 49 mls/hr Protocol Administration 1,000 UNIT/HR Insulin Aspart 1 vial 08/18/17 22:00 08/20/17 06:31 Novolog Vial Sliding Scale - SQ Not Given ACHS [facility] Protocol Insulin Detemir 10 units 08/19/17 10:32 08/19/17 21:23 Levemir Vial SQ 10 units HS M[facility] Administration Lisinopril 5 mg 08/19/17 10:00 08/20/17 09:41 Prinivil PO 5 mg DAILY [facility] Administration Metformin HCl 1,000 mg 08/19/17 07:00 08/20/17 06:21 Glucophage - PO 1,000 mg BIDI [facility] Administration Metoprolol Tartrate 25 mg 08/18/17 22:00 08/20/17 09:41 Lopressor - PO 25 mg BID [facility] Administration Nicotine 7 mg 08/19/17 10:00 08/20/17 09:40 Nicoderm Patch - TD 7 mg DAILY [facility] Administration Ondansetron HCl 4 mg 08/18/17 19:43 Zofran Injection IVPUSH Q6H PRN NAUSEA AND/OR VOMITING Sitagliptin Phosphate 100 mg 08/19/17 07:00 08/20/17 06:21 Januvia - PO 100 mg DAILY@0700 [facility] Administration Warfarin Sodium 10 mg 08/18/17 18:00 08/19/17 17:46 Coumadin - PO 10 mg DAILY@1800 [facility] Administration Last Vital Signs Temp Pulse Resp BP Pulse Ox 98.2 F 96 H 18 127/74 98 08/20/17 09:31 08/20/17 09:31 08/20/17 09:31 08/20/17 09:31 08/19/17 21:00 General NAD Extremities RLE mild swelling, tenderness on calf. pulses appreciated with doppler Abnormal Lab Results 08/19/17 08/19/17 08/19/17 15:45 19:20 19:20 WBC 11.3 H RBC Hgb 10.7 L Hct 32.5 L MCV 79.3 L Plt Count 696 H MPV 7.4 L PT with INR INR PTT (Actin FS) 72.1 H D 40.8 H D 08/20/17 08/20/17 08/20/17 06:10 06:10 06:10 WBC 10.2 H RBC 3.97 L Hgb 10.6 L Hct 31.5 L MCV 79.4 L Plt Count 688 H MPV 7.2 L PT with INR 22.00 H INR 1.95 H PTT (Actin FS) 69.1 H D ASSESSMENT AND PLAN: 47yo M wtih PMH DM, CAD s/p stents, dyslipidemia and conitnuous tobacco dependence presented with RLE pain and found to have acute thrombus 1. Acute R popliteal aterial thrombus- s/p TPA and angioplasty on 08/12. continues to have some pain. on heparin ggt with coumadin bridge. INR 1.95. will cont current dosing. encouraged OOB. on statin. walked 45ft with PT. 2. Anemia of chronic disease- Hgb stable. no indication for transfusion at this time. 3. DM- improved. A1c >15.5. no coverage. sugars improved. no coverage at this time. will d/c levemir as will not agree to use at home. cont oral medication. 4. Dyslipidemia- on statin 5. Continuous nicotine dependence- nicotine patch. counselled on tobacco cessation 6. CAD s/p stents 7. Sinus tachycardia-improved. 8. Obesity- BMI 36.8. lifestyle changes. diet and exercise with goal of 1 lb / week 9. DVT ppx- hep-coumadin bridge 10. OOB to chair. anticipate discharge in 48H. verbalized agreement to plan Visit type - Emergency Visit Emergency Visit: Yes ED Registration Date: 08/10/17 Care time: The patient presented to the Emergency Department on the above date and was hospitalized for further evaluation of their emergent condition. - New Patient This patient is new to me today: No - Critical Care Critical Care patient: No - Discharge Referral Referred to [facility] No
[2017-08-20] MEDS: WARFARIN NA 5 MG TABLET (UD) PO SCH (17:33)
[2017-08-20 18:03] LABS: ANION GAP 10 (8-16); BLOOD UREA NITROGEN 8 mg/dL (7-18); CALCIUM 9.5 mg/dL (8.5-10.1); CHLORIDE 103 mmol/L (98-107); CO2 29 mmol/L (21-32); GLUCOSE,RANDOM 81 mg/dL (74-106); POTASSIUM 4.2 mmol/L (3.5-5.1); SODIUM 142 mmol/L (136-145)
[2017-08-20] MEDS ORDERED: INSULIN (NOVOLOG) ASPART 100 UNITS/ML 10ML VIAL ONE (21:18)
[2017-08-20] MEDS: ATORVASTATIN CA 40 MG TABLET (FP) PO SCH (21:54)
[2017-08-21] MEDS: sitaGLIPtin PHOSPHATE 100 MG TABLET (FP) PO SCH (06:43)
[2017-08-21] MEDS: glyBURIDE 5 MG TABLET (UD) PO SCH (06:43)
[2017-08-21] MEDS: metFORMIN HCL 500 MG TABLET (FP) PO SCH ×2 (06:43→17:15)
[2017-08-21] MEDS: INSULIN SLIDING SCALE (NOVOLOG) 1 VIAL SQ SCH ×4 (06:44→21:32)
[2017-08-21] MEDS ORDERED: INSULIN (NOVOLOG) ASPART 100 UNITS/ML 10ML VIAL ONE (07:00)
[2017-08-21] MEDS ORDERED: INSULIN DETEMIR 100 UNITS/ML MDV SQ ONE (07:01)
[2017-08-21 08:47] LABS: INR 2.6 (0.82-1.09); PROTHROMBIN TIME (PATIENT) 29.4 SEC (9.98-11.88)
[2017-08-21] MEDS ORDERED: PT OWN MED DRAWER 7, Y5N ONE (09:10)
[2017-08-21] MEDS: LISINOPRIL 5 MG TABLET (FP) PO SCH (09:32)
[2017-08-21] MEDS: ASPIRIN 81 MG CHEWABLE TABLETS PO SCH (09:32)
[2017-08-21] MEDS: NICOTINE 7 MG/24 HOURS TOPICAL PATCH TD SCH ×2 (09:32→09:35)
[2017-08-21] MEDS: METOPROLOL TARTRATE 25 MG TABLET (FP) PO SCH ×2 (09:32→21:31)
[2017-08-21] MEDS: HEPARIN NA (PORCINE) 5,000 UNITS/ML 1ML VIAL IVPUSH PRN ×2 (10:22→18:25)
[2017-08-21] MEDS: HEPARIN - 25,000 UNIT in SODIUM CHLORIDE 495 ML IV SCH ×2 (10:34→18:42)
[2017-08-21] MEDS ORDERED: LOPERAMIDE HCL 2 MG CAPSULE PO PRN (10:43)
--- NOTE | 2017-08-21 11:56 | PN ---
Physical Exam: SUBJECTIVE: Patient seen and examined No acute events overnight. Pt reports that pain is still well controlled without any pain meds. He endorses 3 episodes of watery diarrhea yesterday, but denies nausea, emesis, and abdominal pain. OBJECTIVE: Vital Signs Period Temp Pulse Resp BP Sys/Miller Pulse Ox Last 24 Hr 97.9 F-99.8 F 97-102 16-20 120-137/73-88 98 GENERAL: middle aged male, awake, alert, and fully oriented, in no acute distress. HEENT: NC, AT LUNGS: Breath sounds equal, clear to auscultation bilaterally, no wheezes, no crackles, no accessory muscle use. HEART: Regular rate and rhythm, S1, S2 without murmur, rub or gallop. ABDOMEN: Soft, nontender, nondistended, normoactive bowel sounds, no guarding, no rebound, no hepatosplenomegaly, no masses. EXTREMITIES: right calf is less swollen and less tender to palpation. RLE is warm to touch. pain upon movement of toes in RLE. sensory function intact. DP and PT pulses easily appreciated on doppler NEUROLOGICAL: Cranial nerves II through XII grossly intact. Normal speech, gait not observed. Laboratory Results - last 24 hr 08/20/17 08/20/17 08/20/17 06:10 11:05 16:32 PT with INR INR PTT (Actin FS) Sodium 142 Potassium 4.2 Chloride 103 Carbon Dioxide 29 D Anion Gap 10 BUN 8 Creatinine 1.0 D POC Glucometer 73 102 Random Glucose 81 D Calcium 9.5 08/20/17 08/21/17 08/21/17 21:54 06:43 08:00 PT with INR 29.40 H INR 2.60 H D PTT (Actin FS) Sodium Potassium Chloride Carbon Dioxide Anion Gap BUN Creatinine POC Glucometer 190 111 Random Glucose Calcium 08/21/17 08/21/17 08:00 11:18 PT with INR INR PTT (Actin FS) 35.1 H D Sodium Potassium Chloride Carbon Dioxide Anion Gap BUN Creatinine POC Glucometer 93 Random Glucose Calcium Active Medications Generic Name Dose Route Start Last Admin Trade Name Freq PRN Reason Stop Dose Admin Acetaminophen 650 mg 08/18/17 19:43 Tylenol - PO Q6H PRN FEVER Albuterol Sulfate 1 amp 08/18/17 19:43 Ventolin 0.083% Nebulizer Soln - NEB Q4H PRN SHORT OF BREATH/WHEEZING Aspirin 81 mg 08/19/17 10:00 08/21/17 09:32 Asa - PO 81 mg DAILY [facility] Administration Atorvastatin Calcium 40 mg 08/18/17 22:00 08/20/17 21:54 Lipitor - PO 40 mg HS MARYJO Administration Glyburide 5 mg 08/19/17 07:00 08/21/17 06:43 Diabeta - PO 5 mg DAILY@0700 [facility] Administration Heparin Sodium (Porcine) 1,000 unit 08/18/17 19:43 Heparin - IVPUSH PRN PRN Heparin Heparin Sodium (Porcine) 5,000 unit 08/18/17 19:43 08/21/17 10:22 Heparin - IVPUSH 5,000 unit PRN PRN Administration Heparin Heparin Sodium (Porcine) 25, 500 mls @ 20 mls/hr 08/18/17 19:43 08/21/17 10: 34 000 unit/ Sodium Chloride IV 2,600 unit/hr TITR MARYJO 52 mls/hr Protocol Administration 1,000 UNIT/HR Insulin Aspart 1 vial 08/18/17 22:00 08/21/17 11:21 Novolog Vial Sliding Scale - SQ Not Given ACHS [facility] Protocol Lisinopril 5 mg 08/19/17 10:00 08/21/17 09:32 Prinivil PO 5 mg DAILY [facility] Administration Loperamide HCl 2 mg 08/21/17 10:43 Imodium - PO Q8H PRN DIARRHEA Metformin HCl 1,000 mg 08/19/17 07:00 08/21/17 06:43 Glucophage - PO 1,000 mg BIDI [facility] Administration Metoprolol Tartrate 25 mg 08/18/17 22:00 08/21/17 09:32 Lopressor - PO 25 mg BID [facility] Administration Nicotine 7 mg 08/19/17 10:00 08/21/17 09:35 Nicoderm Patch - TD Not Given DAILY [facility] Ondansetron HCl 4 mg 08/18/17 19:43 Zofran Injection IVPUSH Q6H PRN NAUSEA AND/OR VOMITING Sitagliptin Phosphate 100 mg 08/19/17 07:00 08/21/17 06:43 Januvia - PO 100 mg DAILY@0700 [facility] Administration Warfarin Sodium 7.5 mg 08/21/17 18:00 Coumadin - PO DAILY@1800 [facility] ASSESSMENT/PLAN: 47M w/ hx of DM, HTN, and CAD s/p stents who presented with a cold and painful RLE, found to have evidence of right popliteal artery occlusion on LE duplex and CTA aorta, admitted for revascularization. Pt is s/p TPA on 08/11 and s/p thrombolysis on 08/12 due to lost pulses, currently undergoing a heparin to coumadin bridge. #R popliteal artery occlusion -s/p TPA on 08/11 and s/p thrombolysis on 08/12 due to lost pulses, currently undergoing a heparin to coumadin bridge. -decrease coumadin to 7.5 -INR of 2.6, up from 1.95 -Vascular consult-Dr Chandler on board, recs appreciated -Pain tolerated without pain meds -Diabetic/sodium restricted diet -Lipitor 40mg daily HS -PT- walked 45 feet, rec home with assistance #diarrhea -loperamide PRN -continue to monitor for now #DM -levemir discontinued -continue januvia, metformin, and glyburide. Pt has no insurance and will not be able to afford insulin upon discharge. -ISS- ACHS -BGM-ACHS -DM education -Diabetic/sodium restricted diet #Anemia -stable -ferritin: elevated at 560 -TIBC: low -consistent with anemia of chronic disease #thrombocytosis -continue to monitor for now #Transaminitis- resolved -likely 2/2 recent procedures #HTN: -continue lisinopril 5mg daily #CAD s/p stents -continue ASA #Tobacco use: -Nicotine patch 7 TD -Counseling #FEN/ppx -po fluids -electrolytes wnl -Diabetic/sodium restricted diet -no GI ppx indicated -heparin to coumadin bridge #Dispo -pending therapeutic INR Case discussed with attending, Dr. Palacio. -Kt Gomez MD PGY1 Visit type - Emergency Visit Emergency Visit: Yes ED Registration Date: 08/10/17 Care time: The patient presented to the Emergency Department on the above date and was hospitalized for further evaluation of their emergent condition. - New Patient This patient is new to me today: No - Critical Care Critical Care patient: No
--- NOTE | 2017-08-21 13:31 | PN ---
Teaching Attending Note Name of Resident: Kt Gomez ATTENDING PHYSICIAN STATEMENT I saw and evaluated the patient. I reviewed the resident's note and discussed the case with the resident. I agree with the resident's findings and plan as documented. SUBJECTIVE:pain is improving. denies CP, SOB< fever, chills, N/V/C/D OBJECTIVE: Last Vital Signs Temp Pulse Resp BP Pulse Ox 98.6 F 100 H 18 130/88 98 08/21/17 09:00 08/21/17 09:00 08/21/17 09:00 08/21/17 09:00 08/20/17 21:00 General NAD Extremities RLE mild swelling, less tender ASSESSMENT AND PLAN: 47yo M wtih PMH DM, CAD s/p stents, dyslipidemia and conitnuous tobacco dependence presented with RLE pain and found to have acute thrombus 1. Acute R popliteal aterial thrombus- s/p TPA and angioplasty on 08/12. pain slowly improving. on heparin ggt with coumadin bridge. INR therapeutic. will cont ggt for 1 more day. decrease coumadin to 7.5mg. encouraged OOB. on statin. walked 45ft with PT. 2. Anemia of chronic disease- Hgb stable. no indication for transfusion at this time. 3. DM- improved. A1c >15.5. no coverage. sugars improved. no coverage at this time. well controlled on oral regimen. explained need for compliance. 4. Dyslipidemia- on statin 5. Continuous nicotine dependence- nicotine patch. counselled on tobacco cessation 6. CAD s/p stents 7. Sinus tachycardia-improved. 8. Obesity- BMI 36.8. lifestyle changes. diet and exercise with goal of 1 lb / week 9. DVT ppx- hep-coumadin bridge 10. OOB to chair. d/c tomorrow. explained plan with present. need for medication complaince, follow up and diet and exercise,. verbalized understanding and agreement with plan
[2017-08-21] MEDS ORDERED: WARFARIN NA 7.5 MG TABLET (FP) PO SCH (18:00)
[2017-08-21 20:25] LABS: HEMATOCRIT 31.8 % (35.4-49); HEMOGLOBIN 10.7 GM/dL (11.7-16.9); MCH 26.6 pg (25.7-33.7); MCHC 33.7 g/dl (32.0-35.9); MEAN PLT VOLUME 6.4 fl (7.5-11.1); PLATELET COUNT 742 K/MM3 (134-434); RBC 4.02 M/mm3 (4.00-5.60); RDW 13.5 % (11.9-15.9); WHITE BLOOD COUNT 9.4 K/mm3 (4.0-10.0)
[2017-08-21] MEDS: ATORVASTATIN CA 40 MG TABLET (FP) PO SCH (21:31)
[2017-08-22] MEDS: HEPARIN - 25,000 UNIT in SODIUM CHLORIDE 495 ML IV SCH (05:49)
[2017-08-22] MEDS: INSULIN SLIDING SCALE (NOVOLOG) 1 VIAL SQ SCH ×3 (06:27→17:03)
[2017-08-22] MEDS: sitaGLIPtin PHOSPHATE 100 MG TABLET (FP) PO SCH (06:37)
[2017-08-22] MEDS: metFORMIN HCL 500 MG TABLET (FP) PO SCH ×2 (06:37→17:03)
[2017-08-22] MEDS: glyBURIDE 5 MG TABLET (UD) PO SCH (06:37)
[2017-08-22 09:14] LABS: INR 2.7 (0.82-1.09); PROTHROMBIN TIME (PATIENT) 30.5 SEC (9.98-11.88)
[2017-08-22] MEDS ORDERED: PT OWN MED DRAWER 7, Y5N ONE (10:15)
[2017-08-22] MEDS: NICOTINE 7 MG/24 HOURS TOPICAL PATCH TD SCH (10:16)
[2017-08-22] MEDS: METOPROLOL TARTRATE 25 MG TABLET (FP) PO SCH (10:16)
[2017-08-22] MEDS: ASPIRIN 81 MG CHEWABLE TABLETS PO SCH (10:16)
[2017-08-22] MEDS: LISINOPRIL 5 MG TABLET (FP) PO SCH (10:16)
--- NOTE | 2017-08-22 14:18 | PN ---
Teaching Attending Note Name of Resident: Purnima Venegas ATTENDING PHYSICIAN STATEMENT I saw and evaluated the patient. I reviewed the resident's note and discussed the case with the resident. I agree with the resident's findings and plan as documented. SUBJECTIVE:asymptomatic. states leg pain is improving. denies CP, SOB, fever, chills, N/V/C?D OBJECTIVE: Last Vital Signs Temp Pulse Resp BP Pulse Ox 97.9 F 104 H 20 137/89 98 08/22/17 09:00 08/22/17 09:00 08/22/17 09:00 08/22/17 09:00 08/21/17 21:00 General NAD Extremities RLE trace pitting edema, less tender ASSESSMENT AND PLAN: 47yo M wtih PMH DM, CAD s/p stents, dyslipidemia and conitnuous tobacco dependence presented with RLE pain and found to have acute thrombus 1. Acute R popliteal arterial thrombus- s/p TPA and angioplasty on 08/12. pain slowly improving. INR therapeutic for 2 days. on coumadin 7.5mg. will need INR check in 2-3days. statin/asa. will need vascular f/u as outpatient 2. Anemia of chronic disease- Hgb stable. no indication for transfusion at this time. 3. DM- improved. A1c >15.5. no coverage. sugars improved. no coverage at this time. well controlled on oral regimen. explained need for compliance. 4. Dyslipidemia- on statin 5. Continuous nicotine dependence- nicotine patch. counselled on tobacco cessation 6. CAD s/p stents 7. Sinus tachycardia-improved. 8. Obesity- BMI 36.8. lifestyle changes. diet and exercise with goal of 1 lb / week 9. DVT ppx- hep-coumadin bridge 10. d/c home. counselled on need for medication compliance and follow up. will need to see PMD in 2-3days. Document sugars and bring to next appt. stressed importance of these things. verbalized understanding and agreement
[2017-08-22 15:36] VITALS: BP 118/84; PULSE 96; TEMP 98.8
--- NOTE | 2017-08-22 17:39 | DS ---
Physical Exam: SUBJECTIVE: Patient seen and examined OBJECTIVE: Vital Signs Period Temp Pulse Resp BP Sys/Miller Pulse Ox Last 24 Hr 97.9 F-98.8 F 96-109 16-20 118-137/84-89 98 PHYSICAL EXAM GENERAL: The patient is awake, alert, and fully oriented, in no acute distress. HEAD: Normal with no signs of trauma. EYES: PERRL, extraocular movements intact, sclera anicteric, conjunctiva clear. ENT: Ears normal, nares patent, oropharynx clear without exudates, moist mucous membranes. NECK: Trachea midline, full range of motion, supple. LUNGS: Breath sounds equal, clear to auscultation bilaterally, no wheezes, no crackles, no accessory muscle use. HEART: Regular rate and rhythm, S1, S2 without murmur, rub or gallop. ABDOMEN: Soft, nontender, nondistended, normoactive bowel sounds, no guarding, no rebound, no hepatosplenomegaly, no masses. EXTREMITIES: 2+ pulses, warm, well-perfused, no edema. NEUROLOGICAL: Cranial nerves II through XII grossly intact. Normal speech, gait not observed. PSYCH: Normal mood, normal affect. SKIN: Warm, dry, normal turgor, no rashes or lesions noted. LABS Laboratory Results - last 24 hr 08/21/17 08/21/17 08/21/17 16:20 20:15 20:49 WBC 9.4 RBC 4.02 Hgb 10.7 L Hct 31.8 L MCV 79.0 L MCH 26.6 MCHC 33.7 RDW 13.5 Plt Count 742 H MPV 6.4 L D PT with INR INR PTT (Actin FS) 39.4 H POC Glucometer 97 08/22/17 08/22/17 08/22/17 05:56 08:40 08:40 WBC RBC Hgb Hct MCV MCH MCHC RDW Plt Count MPV PT with INR 30.50 H INR 2.70 H PTT (Actin FS) 130.0 H D POC Glucometer 114 08/22/17 08/22/17 08/22/17 11:54 11:56 12:37 WBC RBC Hgb Hct MCV MCH MCHC RDW Plt Count MPV PT with INR INR PTT (Actin FS) POC Glucometer 63 66 106 HOSPITAL COURSE: Date of Admission:08/10/17 Date of Discharge: 08/22/17 Discharge Summary Reason For Visit: OCCLUSION OF ARTERY Condition: Stable - Instructions Diet, Activity, Other Instructions: You presented with a cold and painful leg and were found to have an occlusion. You underwent angiography with TPA, then thrombolysis, and you completed a heparin to coumadin bridge. You must continue to take Coumadin (also called Warfarin) daily, and will have your INR checked frequently by your doctor. You were also found to have extremely elevated blood sugars (your Hemoglobin A1c was 15%). Recommendations: -You may resume your regular daily activities. You need to keep a low carbohydrate diet. You need to avoid foods that are high in Vitamin K such as green leafy vegetables, which will affect your INR. Consult the information that the outsole molder provided. -Measure your blood glucose levels 3 times per day, and keep a log of these values. Bring this to your appointment with Dr. Roy. Medications: This is the list of medications that you need to take daily: 1. glyburide 5mg once per day 2. metformin 1000mg twice a day 3. coumadin 7.5mg once per day 4. lisinopril 5mg once per day. Notify your doctor if you develop any new cough or rash. 5. metoprolol 25mg twice per day 6. aspirin 81mg once per day 7. lipitor 40mg once per day at bedtime Followups: 1. Please visit your primary care physician within the next 2-3 days (that is by or Tuesday, 08/25 or 08/26). You will need to have your INR checked. Bring the blood sugar log to the appointment as well. 2. Please visit vascular surgery, Dr. Chandler, in one week. If you develop bleeding that won't stop, have worsening pain, coldness, weakness , numbness, or pins/needles sensation in your leg or any other concerning symptoms, please return to the ED. Referrals: Morgan Chandler MD [Staff Physician] - 1 Week Marcos Roy MD [Primary Care Provider] - Disposition: HOME - Home Medications Comprehensive Discharge Medication List: Ambulatory Orders Aspirin [ASA -] 81 mg PO DAILY #30 tab.chew 08/22/17 Atorvastatin Ca [Lipitor] 40 mg PO HS #30 tablet 08/22/17 Glyburide [Micronase -] 5 mg PO DAILY@0700 #30 tablet 08/22/17 Lisinopril [Prinivil] 5 mg PO DAILY #30 tablet 08/22/17 Metoprolol Tartrate [Lopressor -] 25 mg PO BID #30 tablet 08/22/17 Miscellaneous Medical Supply [Glucometer Device] 1 each .ROUTE ASDIR #1 kit 05/30 [facility] [Glucometer Test Strips #100] 1 each .ROUTE ASDIR # 1 box 08/22/17 Miscellaneous Medical Supply [Outpatient Order] 1 each ASDIR #1 misc Warfarin Na [Coumadin -] 7.5 mg PO DAILY@1800 #14 tablet 08/22/17 metFORMIN HCL [Glucophage -] 1,000 mg PO BIDI #30 tablet 08/22/17 - Discharge Referral Referred to [facility] No
--- NOTE | 2017-08-24 13:13 | OP ---
DATE OF OPERATION: 08/12/2017 PREOPERATIVE DIAGNOSIS: Right lower extremity ischemia. POSTOPERATIVE DIAGNOSIS: Right lower extremity ischemia. PROCEDURE: Right lower extremity angiogram, tibial artery angioplasty with thrombolysis. FINDINGS: Tibial artery clots, scattered. SURGEON: Morgan Barragan MD ANESTHESIA: Fractional. BLOOD LOSS: 50 mL. INDICATIONS: The patient is a 47-year-old male who had a procedure yesterday for right lower extremity ischemia. He had thrombolysis and fusion performed and is now coming back for a thrombolysis check. Patient is a 47-year-old male who came with right lower extremity ischemia. He is an uncontrolled diabetic, does not take any of his diabetes medications due to the fact that he cannot afford them. He had an episode of pain in his right leg when he was at [facility], and he developed some coolness in his leg. When he came into the hospital, he had a CTA performed showing that he had popliteal artery occlusion. Yesterday, he had an angiogram showing that he had clot in his popliteal artery and in his tibial arteries, and tPA infusion was started overnight. He has now had tPA running at 1-2 mg an hour and is now coming back for a thrombolysis check. Patient currently has a good Dopplerable and palpable PT pulse. Patient was consented for the procedure understanding all risks, benefits, and alternatives and was then brought to the operating room. PROCEDURE IN DETAIL: Once in the operating room, he was placed on the operating table in the supine manner, and the area of the right and left groin were prepped and draped in the sterile surgical manner. The catheters were already in place. We went ahead and prepped and draped the catheters in a sterile surgical manner. We went ahead and placed a 0.035 stiff guidewire down into the SFA beyond our thrombolysis catheter, and thrombolysis catheter was removed. We then shot an angiogram of the right lower extremity showing that the SFA was patent, the popliteal artery was patent, and patient had scattered thrombus in the tibial arteries, and patient had good runoff into the foot via the popliteal via the posterior tibial artery. At this point, we had some tPA on the field, and we had about 14 mg of tPA on the field, and 14 mg of tPA was infused into the tibial arteries. Thereafter, most of the clot resolved, and patient had good runoff via the popliteal artery, and we decided that no more intervention was needed. At this point, we brought out crossover sheath up and over, and StarClose device was successfully deployed in the left common femoral artery. The area was wet and dried. Pressure was held for 5 minutes. Once there was no more bleeding, area was wet and dried, and Dermabond was placed. The patient tolerated the procedure with no complications. Patient transferred to PACU in stable condition with a warm right foot and a palpable PT pulse. MORGAN BARRAGAN DO NP/[id number]
== END 2017-08-22 17:27 | disposition home or self-care (01) | DRG 173 ==
LOC: JER 17:24 → JERBED 19:27 → J6S 08-11 00:27 → JICU 08-11 16:45 → J2W 08-13 19:44 → J6S 08-18 16:05
PROVIDERS: ADMIT Internal Medicine; ATTEND Internal Medicine
PROC: B40FYZZ Plain Radiography of Right Lower Extremity Arteries using Other Contrast (ICD-10-PCS; 2017-08-11)
PROC: B40DYZZ Plain Radiography of Aorta and Bilateral Lower Extremity Arteries using Other Contrast (ICD-10-PCS; 2017-08-11)
PROC: 3E03317 Introduction of Other Thrombolytic into Peripheral Vein, Percutaneous Approach (ICD-10-PCS; 2017-08-11)
PROC: B40FYZZ Plain Radiography of Right Lower Extremity Arteries using Other Contrast (ICD-10-PCS; 2017-08-12)
PROC: 3E03317 Introduction of Other Thrombolytic into Peripheral Vein, Percutaneous Approach (ICD-10-PCS; 2017-08-12)
PROC: 047P3ZZ Dilation of Right Anterior Tibial Artery, Percutaneous Approach (ICD-10-PCS; 2017-08-12)
PROC: 047R3ZZ Dilation of Right Posterior Tibial Artery, Percutaneous Approach (ICD-10-PCS; principal; 2017-08-12 16:30)
DX: I74.3 Embolism and thrombosis of arteries of the lower extremities (principal); I25.10 Atherosclerotic heart disease of native coronary artery without angina pectoris; I10 Essential (primary) hypertension; R00.0 Tachycardia, unspecified; F17.200 Nicotine dependence, unspecified, uncomplicated; E78.5 Hyperlipidemia, unspecified; E11.65 Type 2 diabetes mellitus with hyperglycemia; E11.51 Type 2 diabetes mellitus with diabetic peripheral angiopathy without gangrene; E66.8 Other obesity; Z68.36 Body mass index [BMI] 36.0-36.9, adult; R74.0 Nonspecific elevation of levels of transaminase and lactic acid dehydrogenase [LDH]; D63.8 Anemia in other chronic diseases classified elsewhere; A08.8 Other specified intestinal infections; Z95.5 Presence of coronary angioplasty implant and graft; Z91.14 Patient's other noncompliance with medication regimen
CPT/HCPCS: 36415; 71045-TC-FY; 75635-TC; 76000-TC-FY; 80048; 80053; 80061; 82728; 82962; 83036; 83540; 83550; 83721; 83735; 84100; 85025; 85027; 85384; 85610; 85730; 86850; 86900; 86901; 93005; 93010; 93306-TC; 93926-TC; 94760; 97116-GP; 97161-GP; 99284-25; J1644; J2997; J7030

== ENCOUNTER 2017-09-19 13:56 | Inpatient (IN) | payer SELFPAY ==
--- NOTE | 2017-09-19 18:43 | PDOC ---
History of Present Illness - General Chief Complaint: Pain Stated Complaint: PCP SENT History Source: Patient Exam Limitations: No Limitations - History of Present Illness Initial Comments: 09/19/17 19:26 47-year-old male history of diabetes hypertension and previous angioplasty of right leg here from Dr. Matthew office concerns that he ran out of his meds for 1 week. Patient denies any new pains no fevers or chills no blurry vision no chest pain shortness of breath. When he was seen in Dr. Howe's office there is concerned that he could not feel his right foot and was sent to the ED for evaluation. They checked his sugar was in the 300s. Patient states that he has not been able to fill his medication prescriptions for 1 week and has not been taking any of his meds when saw dr. matthew, was given lovenox 150mg and sent to ED. Past History - Past Medical History Allergies/Adverse Reactions: Allergies Allergy/AdvReac Type Severity Reaction Status Date / Time No Known Allergies Allergy Verified 09/19/17 14:04 Home Medications: Ambulatory Orders Aspirin [ASA -] 81 mg PO DAILY #30 tab.chew 08/22/17 Atorvastatin Ca [Lipitor] 40 mg PO HS #30 tablet 08/22/17 Glyburide [Micronase -] 5 mg PO DAILY@0700 #30 tablet 08/22/17 Lisinopril [Prinivil] 5 mg PO DAILY #30 tablet 08/22/17 Metoprolol Tartrate [Lopressor -] 25 mg PO BID #30 tablet 08/22/17 Miscellaneous Medical Supply [Glucometer Device] 1 each .ROUTE ASDIR #1 kit 05/30 Miscellaneous Medical Supply [Glucometer Test Strips #100] 1 each .ROUTE ASDIR # 1 box 08/22/17 Miscellaneous Medical Supply [Outpatient Order] 1 each ASDIR #1 misc Warfarin Na [Coumadin -] 7.5 mg PO DAILY@1800 #14 tablet 08/22/17 metFORMIN HCL [Glucophage -] 1,000 mg PO BIDI #30 tablet 08/22/17 Cardiac Disorders: Yes (CAD, stents) COPD: No Diabetes: Yes - Surgical History Cardiac Surgery: Yes (CARD STENT) - Suicide/Smoking/Psychosocial Hx Smoking History: Never smoked Have you smoked in the past 12 months: Yes Number of Cigarettes Smoked Daily: 3 Information on smoking cessation initiated: No Hx Alcohol Use: No Drug/Substance Use Hx: No Substance Use Type: None *Physical Exam - Vital Signs Last Vital Signs Temp Pulse Resp BP Pulse Ox 97.3 F L 122 H 18 138/101 100 09/19/17 14:05 09/19/17 14:05 09/19/17 14:05 09/19/17 14:05 09/19/17 14:05 - Physical Exam General Appearance: Yes: Nourished HEENT: positive: MARYANN Neck: positive: Trachea midline Respiratory/Chest: positive: Lungs Clear, Normal Breath Sounds Cardiovascular: positive: Regular Rhythm, Regular Rate, S1, S2 (he). negative: Edema (ligament) Gastrointestinal/Abdominal: positive: Normal Bowel Sounds, Flat, Soft. negative : Tender Musculoskeletal: positive: Normal Inspection. negative: CVA Tenderness Extremity: positive: Normal Inspection, Other (non palp pulse right foot. ) Integumentary: positive: Normal Color, Dry, Warm, Other (dry cracked skin ext.) Neurologic: positive: Fully Oriented, Alert, Normal Mood/Affect, Motor Strength 5/5 Medical Decision Making - Medical Decision Making 09/19/17 18:40 47-year-old male history of diabetes hypertension and previous angioplasty of right leg here from Dr. Matthew office concerns that he ran out of his meds for 1 week. Patient denies any new pains no fevers or chills no blurry vision no chest pain shortness of breath. When he was seen in Dr. Howe's office there is concerned that he could not feel his right foot and was sent to the ED for evaluation. They checked his sugar was in the 300s. Patient states that he has not been able to fill his medication prescriptions for 1 week and has not been taking any of his meds Differential diagnosis includes hyperglycemia, dehydration, like to let abnormalities, renal failure, will obtain Dopplers of the right foot to rule out occlusion as there is nonfocal pulses here today lactate to rule out ischemic process will discuss with Dr. Chandler patient's vascular surgeon Dr. Matthew 09/19/17 19:26 d/w dr roy, *DC/Admit/Observation/Transfer - Referrals Referrals: Marcos Roy MD [Primary Care Provider] - - Patient Instructions - Post Discharge Activity
[2017-09-19 20:01] LABS: BASO % 1.5 % (0-2.0); EOS % 0.8 % (0-4.5); HEMATOCRIT 39.9 % (35.4-49); HEMOGLOBIN 13.2 GM/dL (11.7-16.9); LYMPH % 30.9 % (8-40); MCH 26.1 pg (25.7-33.7); MCHC 33.2 g/dl (32.0-35.9); MEAN CELL VOLUME 78.7 fl (80-96); MEAN PLT VOLUME 7.4 fl (7.5-11.1); MONO % 9.8 % (3.8-10.2); PLATELET COUNT 615 K/MM3 (134-434); RBC 5.07 M/mm3 (4.00-5.60); RDW 14.3 % (11.9-15.9); WHITE BLOOD COUNT 11.1 K/mm3 (4.0-10.0)
[2017-09-19 20:37] LABS: ALBUMIN 3.9 g/dl (3.4-5.0); ANION GAP 7 (8-16); BLOOD UREA NITROGEN 20 mg/dL (7-18); CALCIUM 9.8 mg/dL (8.5-10.1); CHLORIDE 99 mmol/L (98-107); CO2 29 mmol/L (21-32); CREATININE 1.2 mg/dL (0.7-1.3); POTASSIUM 4.3 mmol/L (3.5-5.1); SGOT/AST 6 U/L (15-37); SGPT/ALT 16 U/L (12-78); SODIUM 135 mmol/L (136-145)
[2017-09-19 20:38] LABS: ALK PHOS 118 U/L (45-117); BILIRUBIN,TOTAL 0.3 mg/dL (0.2-1.0); TOT PROT 8.3 g/dl (6.4-8.2)
[2017-09-19 20:42] LABS: INR 1.15 (0.82-1.09)
[2017-09-19 20:43] LABS: GLUCOSE,RANDOM 328 mg/dL (74-106)
[2017-09-19 20:45] LABS: ACTIVATED PTT 34.1 SECONDS (26.9-34.4)
--- NOTE | 2017-09-19 21:36 | PDOC ---
*Physical Exam - Vital Signs Last Vital Signs Temp Pulse Resp BP Pulse Ox 97.3 F L 122 H 18 138/101 100 09/19/17 14:05 09/19/17 14:05 09/19/17 14:05 09/19/17 14:05 09/19/17 14:05 - Physical Exam Comments: 09/19/17 21:30 Patient getting duplex ultrasound now. Will Admit to Dr. Hernandez ED Treatment Course - LABORATORY CBC & Chemistry Diagram: 09/19/17 19:50 09/19/17 19:50 - ADDITIONAL ORDERS Additional order review: Laboratory Results 09/19/17 09/19/17 09/19/17 19:50 19:50 19:50 PT with INR 13.00 H INR 1.15 H D PTT (Actin FS) 34.1 D Sodium 135 L Potassium 4.3 Chloride 99 Carbon Dioxide 29 Anion Gap 7 L BUN 20 H D Creatinine 1.2 Creat Clearance w eGFR > 60 Random Glucose 328 H* D Lactic Acid 1.7 Calcium 9.8 Total Bilirubin 0.3 D AST 6 L D ALT 16 D Alkaline Phosphatase 118 H D Total Protein 8.3 H D Albumin 3.9 D 09/19/17 19:50 RBC 5.07 D MCV 78.7 L MCHC 33.2 RDW 14.3 MPV 7.4 L D Neutrophils % 57.0 Lymphocytes % 30.9 Monocytes % 9.8 Eosinophils % 0.8 Basophils % 1.5 Medical Decision Making - Medical Decision Making 09/19/17 21:33 Patient getting duplex ultrasound now. Will Admit to Dr. Hernandez 09/19/17 21:33 *DC/Admit/Observation/Transfer Diagnosis at time of Disposition: Stenosis due to any device, implant or graft - Discharge Dispostion Admit: Yes - Referrals Referrals: Marcos Roy MD [Primary Care Provider] - Janine Hernandez MD [Staff Physician] - Morgan Chandler MD [Staff Physician] - - Patient Instructions - Post Discharge Activity
--- NOTE | 2017-09-19 23:18 | HP ---
Admitting History and Physical - Primary Care Physician PCP: Janine Hernandez - Admission History of Present Illness: 47-year-old male history of diabetes hypertension and previous angioplasty of right leg here from Dr. Roy office concerns that he ran out of his meds for 1 week. Patient denies any new pains no fevers or chills no blurry vision no chest pain shortness of breath. When he was seen in Dr. Blancas office there is concerned that he could not feel his right foot and was sent to the ED for evaluation. They checked his sugar was in the 300s. Patient states that he has not been able to fill his medication prescriptions for 1 week and has not been taking any of his meds - Past Medical History Cardiovascular: Yes: HTN Endocrine: Yes: Diabetes Mellitus - Smoking History Smoking history: Never smoked Have you smoked in the past 12 months: Yes Aproximately how many cigarettes per day: 3 - Alcohol/Substance Use Hx Alcohol Use: No Home Medications - Allergies Allergies/Adverse Reactions: Allergies Allergy/AdvReac Type Severity Reaction Status Date / Time No Known Allergies Allergy Verified 09/19/17 14:04 - Home Medications Home Medications: Ambulatory Orders Miscellaneous Medical Supply [Glucometer Device] 1 each .ROUTE ASDIR #1 kit 05/30 Miscellaneous Medical Supply [Glucometer Test Strips #100] 1 each .ROUTE ASDIR # 1 box 08/22/17 Miscellaneous Medical Supply [Outpatient Order] 1 each ASDIR #1 misc Warfarin Na [Coumadin -] 7.5 mg PO DAILY@1800 #14 tablet 08/22/17 Aspirin [ASA -] 81 mg PO DAILY #30 tab.chew 09/22/17 Atorvastatin Ca [Lipitor] 40 mg PO HS #30 tablet 09/22/17 Glyburide [Micronase -] 5 mg PO DAILY@0700 #30 tablet 09/22/17 Lisinopril [Prinivil] 5 mg PO DAILY #30 tablet 09/22/17 Metoprolol Tartrate [Lopressor -] 25 mg PO BID #30 tablet 09/22/17 Warfarin Na [Coumadin -] 7.5 mg PO DAILY@1800 #30 tablet 09/22/17 metFORMIN HCL [Glucophage -] 1,000 mg PO BIDI #30 tablet 09/22/17 Physical Examination Vital Signs: Vital Signs Temperature 97.3 F L 09/19/17 14:05 Pulse Rate 122 H 09/19/17 14:05 Respiratory Rate 18 09/19/17 14:05 Blood Pressure 138/101 09/19/17 14:05 O2 Sat by Pulse Oximetry (%) 100 09/19/17 14:05 Constitutional: Yes: No Distress HENT: Yes: Atraumatic Neck: Yes: Supple Cardiovascular: Yes: Regular Rate and Rhythm Respiratory: Yes: CTA Bilaterally Gastrointestinal: Yes: Normal Bowel Sounds Edema: Yes Edema: LLE: 2+, RLE: 2+ Neurological: Yes: Alert, Oriented Labs: CBC, BMP 09/19/17 19:50 09/19/17 19:50 Imaging - Results Ultrasound: Report Reviewed Problem List - Problems (1) Stenosis due to any device, implant or graft Assessment/Plan: will get dr garay consult Code(s): T85.858A - STENOSIS DUE TO OTHER INTERNAL PROSTH DEV/GRFT, INIT (2) Arterial occlusion Assessment/Plan: on coumadin monitor pt/inr Code(s): I70.90 - UNSPECIFIED ATHEROSCLEROSIS (3) Diabetes type 2, uncontrolled Assessment/Plan: on meds bgms sliding scale insulin Code(s): E11.65 - TYPE 2 DIABETES MELLITUS WITH HYPERGLYCEMIA (4) Hypertension Assessment/Plan: on meds stable Code(s): I10 - ESSENTIAL (PRIMARY) HYPERTENSION (5) Right leg pain Code(s): M79.604 - PAIN IN RIGHT LEG Assessment/Plan Laboratory Tests 09/19/17 09/19/17 09/19/17 19:50 19:50 19:50 WBC 11.1 H RBC 5.07 D Hgb 13.2 D Hct 39.9 D MCV 78.7 L MCH 26.1 MCHC 33.2 RDW 14.3 Plt Count 615 H MPV 7.4 L D Neutrophils % 57.0 Lymphocytes % 30.9 Monocytes % 9.8 Eosinophils % 0.8 Basophils % 1.5 PT with INR INR PTT (Actin FS) Sodium 135 L Potassium 4.3 Chloride 99 Carbon Dioxide 29 Anion Gap 7 L BUN 20 H D Creatinine 1.2 Creat Clearance w eGFR > 60 Random Glucose 328 H* D Lactic Acid 1.7 Calcium 9.8 Total Bilirubin 0.3 D AST 6 L D ALT 16 D Alkaline Phosphatase 118 H D Total Protein 8.3 H D Albumin 3.9 D 09/19/17 19:50 WBC RBC Hgb Hct MCV MCH MCHC RDW Plt Count MPV Neutrophils % Lymphocytes % Monocytes % Eosinophils % Basophils % PT with INR 13.00 H INR 1.15 H D PTT (Actin FS) 34.1 D Sodium Potassium Chloride Carbon Dioxide Anion Gap BUN Creatinine Creat Clearance w eGFR Random Glucose Lactic Acid Calcium Total Bilirubin AST ALT Alkaline Phosphatase Total Protein Albumin Active Medications Generic Name Dose Route Start Last Admin Trade Name Freq PRN Reason Stop Dose Admin Aspirin 81 mg 09/20/17 10:00 Asa - PO DAILY [facility] Atorvastatin Calcium 40 mg 09/20/17 22:00 Lipitor - PO HS [facility] Glyburide 5 mg 09/20/17 07:00 Diabeta - PO DAILY@0700 [facility] Lisinopril 5 mg 09/20/17 10:00 Prinivil PO DAILY [facility] Metformin HCl 1,000 mg 09/20/17 07:00 Glucophage - PO BIDI [facility] Metoprolol Tartrate 25 mg 09/20/17 10:00 Lopressor - PO BID MARYJO
[2017-09-20 01:40] VITALS: BMI 36.8
[2017-09-20 02:24] LABS: ACETONE SERUM POSITIVE SMALL 1+ (NEGATIVE)
[2017-09-20] MEDS: INSULIN SLIDING SCALE (NOVOLOG) 1 VIAL SQ SCH ×4 (06:06→21:43)
[2017-09-20] MEDS: metFORMIN HCL 500 MG TABLET (FP) PO SCH ×2 (06:06→16:20)
[2017-09-20] MEDS: glyBURIDE 5 MG TABLET (UD) PO SCH (06:07)
[2017-09-20] MEDS: HEPARIN NA (PORCINE) 5,000 UNITS/ML 1ML VIAL SQ SCH ×2 (09:30→21:43)
[2017-09-20] MEDS: ASPIRIN 81 MG CHEWABLE TABLETS PO SCH (09:30)
[2017-09-20] MEDS: LISINOPRIL 5 MG TABLET (FP) PO SCH (09:30)
[2017-09-20] MEDS: METOPROLOL TARTRATE 25 MG TABLET (FP) PO SCH ×2 (09:30→21:44)
--- NOTE | 2017-09-20 10:34 | EKG ---
Test Reason : Blood Pressure : / mmHG Vent. Rate : 110 BPM Atrial Rate : 110 BPM P-R Int : 138 ms QRS Dur : 086 ms QT Int : 348 ms P-R-T Axes : 049 -38 011 degrees QTc Int : 470 ms SINUS TACHYCARDIA LEFT AXIS DEVIATION ANTERIOR INFARCT (CITED ON OR BEFORE 10-AUG-2017) ABNORMAL ECG WHEN COMPARED WITH ECG OF 16-AUG-2017 13:14, NO SIGNIFICANT CHANGE WAS FOUND Confirmed by MD Win, August ([id number]) on 09/20/2017 10:33:54 AM Referred By: Confirmed By:August Walden MD
[2017-09-20] MEDS ORDERED: INSULIN (NOVOLOG) ASPART 100 UNITS/ML 10ML VIAL ONE ×2 (10:51→16:16)
--- NOTE | 2017-09-20 12:32 | PN ---
Progress Note (short form) - Note Progress Note: Vascular Surgery: Pt seen and examined earlier this am. He states that his Right foot/leg isn't having any pain. He went to see Dr. Roy and he was noted to have elevated sugars. Also his coumadin had run out a week earlier and he hadn't been on any anti-coagulation. He is s/p RLE angiogram, tibial artery angioplasty, thrombolysis on 08/24/2017. Vital Signs Period Temp Pulse Resp BP Sys/Miller Pulse Ox Last 24 Hr 97.3 F-98.5 F 96-122 18-20 113-138/68-101 100-100 GEN: A&0x3, Nad Rle: foot warm pulses not palpable. No ulcers noted. good cap refill. +2 femoral pulse. Lle: foot warm with +1 DP pulse. Left groin no masses. INR, PTT INR 1.15 (0.82-1.09) H D 09/19/17 19:50 Arterial Duplex: Triphasic wave form to [employer]/SFA/popliteal/posterior tibila artery Problem List - Problems (1) Arterial occlusion Assessment/Plan: s/p RLE angiogram, tibial artery angioplasty, thrombolysis on 08/24/2017. Spoke with Dr. Chandler and recommend to resume coumadin, no evidence of acute ischemia. Code(s): I70.90 - UNSPECIFIED ATHEROSCLEROSIS (2) Diabetes type 2, uncontrolled Assessment/Plan: elevated blood glucose, managment as per the medical team Code(s): E11.65 - TYPE 2 DIABETES MELLITUS WITH HYPERGLYCEMIA
[2017-09-20] MEDS: WARFARIN NA 7.5 MG TABLET (FP) PO SCH (17:01)
--- NOTE | 2017-09-20 18:09 | PN ---
Progress Note, Physician History of Present Illness: feeling good - Current Medication List Current Medications: Active Medications Aspirin (Asa -) 81 mg PO DAILY [facility] Last Admin: 09/20/17 09:30 Dose: 81 mg Atorvastatin Calcium (Lipitor -) 40 mg PO HS [facility] Glyburide (Diabeta -) 5 mg PO DAILY@0700 [facility] Last Admin: 09/20/17 06:07 Dose: 5 mg Heparin Sodium (Porcine) (Heparin -) 5,000 unit SQ BID [facility] Last Admin: 09/20/17 09:30 Dose: 5,000 unit Insulin Aspart (Novolog Vial Sliding Scale -) 1 vial SQ ACHS [facility] PRN Reason: Protocol Last Admin: 09/20/17 16:25 Dose: 6 units Lisinopril (Prinivil) 5 mg PO DAILY [facility] Last Admin: 09/20/17 09:30 Dose: 5 mg Metformin HCl (Glucophage -) 1,000 mg PO BIDI [facility] Last Admin: 09/20/17 16:20 Dose: 1,000 mg Metoprolol Tartrate (Lopressor -) 25 mg PO BID [facility] Last Admin: 09/20/17 09:30 Dose: 25 mg Warfarin Sodium (Coumadin -) 7.5 mg PO DAILY@1800 [facility] Last Admin: 09/20/17 17:01 Dose: 7.5 mg - Objective Vital Signs: Vital Signs Temperature 98.2 F 09/20/17 14:00 Pulse Rate 90 09/20/17 14:00 Respiratory Rate 18 09/20/17 14:00 Blood Pressure 112/70 09/20/17 14:00 O2 Sat by Pulse Oximetry (%) 100 09/20/17 08:00 Constitutional: Yes: No Distress HENT: Yes: Atraumatic Neck: Yes: Supple Cardiovascular: Yes: Regular Rate and Rhythm Respiratory: Yes: CTA Bilaterally Gastrointestinal: Yes: Normal Bowel Sounds Edema: Yes Neurological: Yes: Alert, Oriented Labs: CBC, BMP 09/19/17 19:50 09/20/17 08:52 INR, PTT INR 1.15 (0.82-1.09) H D 09/19/17 19:50 Problem List - Problems (1) Stenosis due to any device, implant or graft Code(s): T85.858A - STENOSIS DUE TO OTHER INTERNAL PROSTH DEV/GRFT, INIT (2) Arterial occlusion Assessment/Plan: on coumadin monitor pt/inr Code(s): I70.90 - UNSPECIFIED ATHEROSCLEROSIS (3) Diabetes type 2, uncontrolled Code(s): E11.65 - TYPE 2 DIABETES MELLITUS WITH HYPERGLYCEMIA (4) Hypertension Assessment/Plan: on meds stable Code(s): I10 - ESSENTIAL (PRIMARY) HYPERTENSION (5) Right leg pain Code(s): M79.604 - PAIN IN RIGHT LEG
[2017-09-20 19:16] LABS: PROTHROMBIN TIME (PATIENT) 11.3 SEC (9.98-11.88)
[2017-09-20] MEDS: ATORVASTATIN CA 40 MG TABLET (FP) PO SCH (21:44)
[2017-09-21] MEDS: INSULIN SLIDING SCALE (NOVOLOG) 1 VIAL SQ SCH ×4 (06:33→21:16)
[2017-09-21] MEDS: metFORMIN HCL 500 MG TABLET (FP) PO SCH ×2 (06:33→16:26)
[2017-09-21] MEDS: glyBURIDE 5 MG TABLET (UD) PO SCH (06:33)
[2017-09-21] MEDS ORDERED: PT OWN MED DRAWER 7, Y5N ONE (06:54)
[2017-09-21] MEDS: HEPARIN NA (PORCINE) 5,000 UNITS/ML 1ML VIAL SQ SCH ×2 (09:19→21:13)
[2017-09-21] MEDS: METOPROLOL TARTRATE 25 MG TABLET (FP) PO SCH ×2 (09:19→21:13)
[2017-09-21] MEDS: ASPIRIN 81 MG CHEWABLE TABLETS PO SCH (09:19)
[2017-09-21] MEDS: LISINOPRIL 5 MG TABLET (FP) PO SCH (09:19)
[2017-09-21] MEDS ORDERED: INSULIN (NOVOLOG) ASPART 100 UNITS/ML 10ML VIAL ONE ×2 (11:47→21:07)
--- NOTE | 2017-09-21 13:36 | CONSULT ---
Consult Consult Specialty:: Endocrinology Referred by:: Dr Hernandez Reason for Consultation:: Hyperglycemia - History of Present Illness Chief Complaint: Hyperglycemia History of Present Illness: This is a 47-year-old male with history of diabetes for about 4 years, hypertension and previous angioplasty of right leg referred from Dr. Roy office . Patient denies any new pains no fevers or chills no blurry vision no chest pain shortness of breath. When he was seen in 's office there was concern that he could not feel his right foot and was sent to the ED for evaluation. They checked his sugar was in the 300s. Patient states that he has not been able to fill his medication prescriptions for 1 week and has not been taking any of his meds - History Source History Provided By: Patient, Medical Record - Past Medical History Cardio/Vascular: Yes: HTN Endocrine: Yes: Diabetes Mellitus - Alcohol/Substance Use Hx Alcohol Use: No - Smoking History Smoking history: Never smoked Have you smoked in the past 12 months: Yes Aproximately how many cigarettes per day: 3 Home Medications - Allergies Allergies/Adverse Reactions: Allergies Allergy/AdvReac Type Severity Reaction Status Date / Time No Known Allergies Allergy Verified 09/19/17 14:04 - Home Medications Home Medications: Ambulatory Orders Aspirin [ASA -] 81 mg PO DAILY #30 tab.chew 08/22/17 Atorvastatin Ca [Lipitor] 40 mg PO HS #30 tablet 08/22/17 Glyburide [Micronase -] 5 mg PO DAILY@0700 #30 tablet 08/22/17 Lisinopril [Prinivil] 5 mg PO DAILY #30 tablet 08/22/17 Metoprolol Tartrate [Lopressor -] 25 mg PO BID #30 tablet 08/22/17 Miscellaneous Medical Supply [Glucometer Device] 1 each .ROUTE ASDIR #1 kit 05/30 Miscellaneous Medical Supply [Glucometer Test Strips #100] 1 each .ROUTE ASDIR # 1 box 08/22/17 Miscellaneous Medical Supply [Outpatient Order] 1 each ASDIR #1 misc Warfarin Na [Coumadin -] 7.5 mg PO DAILY@1800 #14 tablet 08/22/17 metFORMIN HCL [Glucophage -] 1,000 mg PO BIDI #30 tablet 08/22/17 Family Disease History - Family Disease History Other Family History: No family h/o DM Review of Systems - Review of Systems Constitutional: reports: No Symptoms Eyes: reports: No Symptoms HENT: reports: No Symptoms Neck: reports: No Symptoms Cardiovascular: reports: No Symptoms Respiratory: reports: No Symptoms Gastrointestinal: reports: No Symptoms Genitourinary: reports: Other (Nocturia x2) Musculoskeletal: reports: No Symptoms Neurological: reports: No Symptoms Endocrine: reports: No Symptoms Physical Exam Vital Signs: Vital Signs Temperature 98.3 F 09/21/17 09:00 Pulse Rate 103 H 09/21/17 09:00 Respiratory Rate 125 H 09/21/17 09:00 Blood Pressure 115/66 09/21/17 05:38 O2 Sat by Pulse Oximetry (%) 100 09/20/17 21:00 Constitutional: Yes: No Distress, Calm Eyes: Yes: Conjunctiva Clear, EOM Intact HENT: Yes: Atraumatic, Normocephalic Neck: Yes: Supple, Trachea Midline Cardiovascular: Yes: Regular Rate and Rhythm Respiratory: Yes: Regular, CTA Bilaterally Gastrointestinal: Yes: Normal Bowel Sounds, Soft Extremities: Yes: WNL Edema: No Neurological: Yes: Alert, Oriented Labs: CBC, BMP 09/19/17 19:50 09/20/17 08:52 Assessment/Plan AP; T2DM Improving blood sugar on Glyburide 5mg QD Add Metformin 500mg BID Will f/u PAD: S/o RLE angioplasty, thrombolysis on 08.24.17 Vascular sugery consult noted
[2017-09-21] MEDS: WARFARIN NA 7.5 MG TABLET (FP) PO SCH (17:25)
--- NOTE | 2017-09-21 17:36 | PN ---
Progress Note, Physician History of Present Illness: feeling good - Current Medication List Current Medications: Active Medications Aspirin (Asa -) 81 mg PO DAILY [facility] Last Admin: 09/21/17 09:19 Dose: 81 mg Atorvastatin Calcium (Lipitor -) 40 mg PO HS [facility] Last Admin: 09/20/17 21:44 Dose: 40 mg Glyburide (Diabeta -) 5 mg PO DAILY@0700 [facility] Last Admin: 09/21/17 06:33 Dose: 5 mg Heparin Sodium (Porcine) (Heparin -) 5,000 unit SQ BID [facility] Last Admin: 09/21/17 09:19 Dose: 5,000 unit Insulin Aspart (Novolog Vial Sliding Scale -) 1 vial SQ [facility] PRN Reason: Protocol Last Admin: 09/21/17 16:26 Dose: 4 units Lisinopril (Prinivil) 5 mg PO DAILY [facility] Last Admin: 09/21/17 09:19 Dose: 5 mg Metformin HCl (Glucophage -) 1,000 mg PO BIDI [facility] Last Admin: 09/21/17 16:26 Dose: 1,000 mg Metoprolol Tartrate (Lopressor -) 25 mg PO BID [facility] Last Admin: 09/21/17 09:19 Dose: 25 mg Warfarin Sodium (Coumadin -) 7.5 mg PO DAILY@1800 [facility] Last Admin: 09/21/17 17:25 Dose: 7.5 mg - Objective Vital Signs: Vital Signs Temperature 98.9 F 09/21/17 14:00 Pulse Rate 103 H 09/21/17 09:00 Respiratory Rate 125 H 09/21/17 09:00 Blood Pressure 115/66 09/21/17 05:38 O2 Sat by Pulse Oximetry (%) 100 09/20/17 21:00 Constitutional: Yes: No Distress HENT: Yes: Atraumatic Neck: Yes: Supple Cardiovascular: Yes: Regular Rate and Rhythm Respiratory: Yes: CTA Bilaterally Gastrointestinal: Yes: Normal Bowel Sounds Extremities: Yes: WNL Edema: Yes Edema: LLE: Trace, RLE: 1+ Neurological: Yes: Alert, Oriented Labs: CBC, BMP 09/19/17 19:50 09/20/17 08:52 INR, PTT INR 1.00 (0.82-1.09) 09/20/17 17:20 Problem List - Problems (1) Stenosis due to any device, implant or graft Code(s): T85.858A - STENOSIS DUE TO OTHER INTERNAL PROSTH DEV/GRFT, INIT (2) Arterial occlusion Assessment/Plan: on coumadin monitor pt/inr Code(s): I70.90 - UNSPECIFIED ATHEROSCLEROSIS (3) Diabetes type 2, uncontrolled Code(s): E11.65 - TYPE 2 DIABETES MELLITUS WITH HYPERGLYCEMIA (4) Hypertension Assessment/Plan: on meds stable Code(s): I10 - ESSENTIAL (PRIMARY) HYPERTENSION (5) Right leg pain Code(s): M79.604 - PAIN IN RIGHT LEG
[2017-09-21 18:57] LABS: INR 1.01 (0.82-1.09); PROTHROMBIN TIME (PATIENT) 11.4 SEC (9.98-11.88)
[2017-09-21] MEDS: ATORVASTATIN CA 40 MG TABLET (FP) PO SCH (21:13)
[2017-09-22] MEDS: glyBURIDE 5 MG TABLET (UD) PO SCH (06:39)
[2017-09-22] MEDS: metFORMIN HCL 500 MG TABLET (FP) PO SCH ×2 (06:39→17:05)
[2017-09-22] MEDS: INSULIN SLIDING SCALE (NOVOLOG) 1 VIAL SQ SCH ×2 (06:40→17:05)
[2017-09-22 08:23] LABS: BASO % 0.2 % (0-2.0); EOS % 1.6 % (0-4.5); HEMATOCRIT 38.7 % (35.4-49); HEMOGLOBIN 12.7 GM/dL (11.7-16.9); MCH 26.1 pg (25.7-33.7); MCHC 32.9 g/dl (32.0-35.9); MEAN CELL VOLUME 79.3 fl (80-96); MEAN PLT VOLUME 7.3 fl (7.5-11.1); MONO % 9.3 % (3.8-10.2); NEUT % 55.9 % (42.8-82.8); PLATELET COUNT 533 K/MM3 (134-434); RBC 4.88 M/mm3 (4.00-5.60); RDW 14.3 % (11.9-15.9); WHITE BLOOD COUNT 8.6 K/mm3 (4.0-10.0)
[2017-09-22 08:59] LABS: ALBUMIN 3.4 g/dl (3.4-5.0); ANION GAP 8 (8-16); BLOOD UREA NITROGEN 15 mg/dL (7-18); CALCIUM 9.5 mg/dL (8.5-10.1); CHLORIDE 102 mmol/L (98-107); CO2 26 mmol/L (21-32); GLUCOSE,RANDOM 170 mg/dL (74-106); POTASSIUM 4.3 mmol/L (3.5-5.1); SGOT/AST 7 U/L (15-37); SGPT/ALT 14 U/L (12-78); SODIUM 136 mmol/L (136-145)
[2017-09-22 09:01] LABS: ALK PHOS 100 U/L (45-117); BILIRUBIN,TOTAL 0.3 mg/dL (0.2-1.0); TOT PROT 7.5 g/dl (6.4-8.2)
[2017-09-22] MEDS: ASPIRIN 81 MG CHEWABLE TABLETS PO SCH (09:32)
[2017-09-22] MEDS: METOPROLOL TARTRATE 25 MG TABLET (FP) PO SCH (09:32)
[2017-09-22] MEDS: HEPARIN NA (PORCINE) 5,000 UNITS/ML 1ML VIAL SQ SCH (09:32)
[2017-09-22] MEDS: LISINOPRIL 5 MG TABLET (FP) PO SCH (09:32)
[2017-09-22 13:18] VITALS: BP 117/74; PULSE 91; TEMP 97.9
[2017-09-22] MEDS: WARFARIN NA 7.5 MG TABLET (FP) PO SCH (17:05)
--- NOTE | 2017-09-22 17:09 | DS ---
Physical Examination Vital Signs: Vital Signs Temperature 97.9 F 09/22/17 13:17 Pulse Rate 91 H 09/22/17 13:17 Respiratory Rate 18 09/22/17 13:17 Blood Pressure 117/74 09/22/17 13:17 O2 Sat by Pulse Oximetry (%) 100 09/20/17 21:00 Constitutional: Yes: No Distress HENT: Yes: Atraumatic Neck: Yes: Supple Cardiovascular: Yes: Regular Rate and Rhythm Respiratory: Yes: CTA Bilaterally Gastrointestinal: Yes: Normal Bowel Sounds Extremities: Yes: WNL Edema: No Peripheral Pulses WNL: Yes Neurological: Yes: Alert, Oriented Labs: CBC, BMP 09/22/17 07:20 09/22/17 07:20 Discharge Summary Reason For Visit: STENOSIS DUE TO ANY DEVICE,IMPLANT OR GRAFT Current Active Problems Stenosis due to any device, implant or graft (Acute) - Instructions Diet, Activity, Other Instructions: check inr on tuesday at dr oreilly office Referrals: Janine Hernandez MD [Staff Physician] - Morgan Chandler MD [Staff Physician] - Marcos Roy MD [Primary Care Provider] - - Home Medications Comprehensive Discharge Medication List: Ambulatory Orders Miscellaneous Medical Supply [Glucometer Device] 1 each .ROUTE ASDIR #1 kit 05/30 Miscellaneous Medical Supply [Glucometer Test Strips #100] 1 each .ROUTE ASDIR # 1 box 08/22/17 Miscellaneous Medical Supply [Outpatient Order] 1 each ASDIR #1 misc Warfarin Na [Coumadin -] 7.5 mg PO DAILY@1800 #14 tablet 08/22/17 Aspirin [ASA -] 81 mg PO DAILY #30 tab.chew 09/22/17 Atorvastatin Ca [Lipitor] 40 mg PO HS #30 tablet 09/22/17 Glyburide [Micronase -] 5 mg PO DAILY@0700 #30 tablet 09/22/17 Lisinopril [Prinivil] 5 mg PO DAILY #30 tablet 09/22/17 Metoprolol Tartrate [Lopressor -] 25 mg PO BID #30 tablet 09/22/17 Warfarin Na [Coumadin -] 7.5 mg PO DAILY@1800 #30 tablet 09/22/17 metFORMIN HCL [Glucophage -] 1,000 mg PO BIDI #30 tablet 09/22/17 [place] [facility]
[2017-09-22 17:14] LABS: INR 1.06 (0.82-1.09)
[2017-09-22] MEDS ORDERED: WARFARIN NA 2.5 MG TABLET (FP) PO ONE (17:30)
== END 2017-09-22 18:27 | disposition home or self-care (01) | DRG 862 ==
LOC: JER 13:56 → JERBED 21:36 → J6S 23:21
PROVIDERS: ADMIT Internal Medicine; ATTEND Internal Medicine
DX: T85.858A Stenosis due to other internal prosthetic devices, implants and grafts, initial encounter (principal); Y83.9 Surgical procedure, unspecified as the cause of abnormal reaction of the patient, or of later complication, without mention of misadventure at the time of the procedure; I10 Essential (primary) hypertension; I70.90 Unspecified atherosclerosis; E11.65 Type 2 diabetes mellitus with hyperglycemia; Z79.01 Long term (current) use of anticoagulants; F17.210 Nicotine dependence, cigarettes, uncomplicated
CPT/HCPCS: 36415; 80053; 82009; 82947; 82962; 83605; 85025; 85610; 85730; 93005; 93010; 93926-TC; 99281-25; J1644

== ENCOUNTER 2019-01-23 18:12 | Inpatient (IN) | payer OTHER ==
--- NOTE | 2019-01-23 18:21 | PDOC ---
Rapid Medical Evaluation Time Seen by Provider: 01/23/19 18:19 Medical Evaluation: Allergies Allergy/AdvReac Type Severity Reaction Status Date / Time No Known Allergies Allergy Verified 09/19/17 14:04 01/23/19 18:19 HPI Right leg and foot pain hx of DVT No CP or SOB PE: No gross deficits ORDERS: Doppler Discharge Disposition - Diagnosis Right leg pain - Referrals - Patient Instructions - Post Discharge Activity
--- NOTE | 2019-01-23 19:38 | PDOC ---
*Physical Exam - Vital Signs Last Vital Signs Temp Pulse Resp BP Pulse Ox 98.6 F 130 H 16 149/100 97 01/23/19 18:19 01/23/19 18:19 01/23/19 18:19 01/23/19 18:19 01/23/19 18:19 ED Treatment Course - LABORATORY CBC & Chemistry Diagram: 01/23/19 21:45 01/23/19 20:55 Medical Decision Making - Medical Decision Making 01/23/19 19:38 Patient seen by the advanced practice provider under my direct supervision. Ancillary testing reviewed as necessary. I agree with plan as outlined by the advanced practice provider. *DC/Admit/Observation/Transfer Diagnosis at time of Disposition: Right leg pain, Arterial occlusion - Referrals Referrals: Marcos Roy MD [Primary Care Provider] - - Patient Instructions - Post Discharge Activity
--- NOTE | 2019-01-23 19:41 | PDOC ---
History of Present Illness - General Chief Complaint: Pain, Acute Stated Complaint: LEG/FOOT PAIN Time Seen by Provider: 01/23/19 18:19 History Source: Patient Exam Limitations: No Limitations - History of Present Illness Initial Comments: 01/23/19 20:24 HISTORY OF PRESENT ILLNESS: 48-year-old male with past medical history of DVT and right lower extremity arterial occlusion status post angiogram with TPA presents emergency department for evaluation of right lower leg pain worsening over the past week. Patient reports he feels his leg is cold which there is any came to the emergency department for evaluation. Patient is currently taking Xarelto. He denies fevers, chills, shortness of breath, chest pain, abdominal pain, nausea, vomiting. No recent travel or sick contacts. PAST MEDICAL HISTORY: see HPI SURGICAL HISTORY: See HPI ALLERGIES: No known drug allergies REVIEW OF SYSTEMS General/Constitutional: Denies fever or chills. Denies weakness, weight change. HEENT: Denies change in vision. Denies ear pain or discharge. Denies sore throat. Cardiovascular: Denies chest pain or shortness of breath. Respiratory: Denies cough, wheezing, or hemoptysis. Gastrointestinal: Denies nausea, vomiting, diarrhea or constipation. Denies rectal bleeding. Genitourinary: Denies dysuria, frequency, or change in urination. Musculoskeletal: see HPI Skin and breasts: Denies rash or easy bruising. Neurologic: Denies headache, vertigo, loss of consciousness, or loss of sensation. Psychiatric: Denies depression or anxiety. Endocrine: Denies increased thirst. Denies abnormal weight change. Hematologic/Lymphatic: Denies anemia, easy bleeding, or history of blood clots. Allergic/Immunologic: Denies hives or skin allergy. Denies latex allergy. PHYSICAL EXAM General Appearance: Well-appearing, appropriately dressed. No apparent distress , no intoxication. Neck: Supple. Trachea midline. No tenderness, rigidity, carotid bruit, stridor , lymphadenopathy, or thyromegaly. Respiratory/Chest: Lungs CTAB. No shortness of breath, chest tenderness, respiratory distress, accessory muscle use. No crackles, rales, rhonchi, stridor , wheezing, dullness Cardiovascular: Tachycardic with rate of 113. S1, S2. No JVD, murmur, bradycardia. Vascular Pulses: Dorsalis-Pedis (R): doppler , Dorsalis-Pedis (L): doppler Musculoskeletal/Extremities: Right lower leg erythematous and tender to palpation. Skin temperature is equal bilaterally and warm to touch. Neurovascular intact. 1+ pedal edema present in the right lower extremity. Integumentary: Appropriate color, dry, warm. 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 Fully oriented, alert. Appropriate mood/affect. Motor strength 5/5. No appreciable EOM palsy, facial droop or sensory deficit. 01/23/19 20:27 01/24/19 00:52 Past History - Past Medical History Allergies/Adverse Reactions: Allergies Allergy/AdvReac Type Severity Reaction Status Date / Time No Known Allergies Allergy Verified 01/23/19 18:22 Home Medications: Ambulatory Orders Aspirin [ASA -] 81 mg PO DAILY #30 tab.chew 09/22/17 Atorvastatin Ca [Lipitor] 40 mg PO HS #30 tablet 09/22/17 Glyburide [Micronase -] 5 mg PO DAILY@0700 #30 tablet 09/22/17 Metoprolol Tartrate [Lopressor -] 25 mg PO BID #30 tablet 09/22/17 Insulin Glargine,Hum.rec.anlog [Lantus Solostar PEN (NF)] 0 units SQ BID Rivaroxaban [Xarelto -] 20 mg PO DAILY 01/24/19 Cardiac Disorders: Yes (CAD, stents) COPD: No Diabetes: Yes Other medical history: DVT - Surgical History Cardiac Surgery: Yes (CARD STENT) - Suicide/Smoking/Psychosocial Hx Smoking History: Never smoked Have you smoked in the past 12 months: Yes Number of Cigarettes Smoked Daily: 4 Information on smoking cessation initiated: No Hx Alcohol Use: No Drug/Substance Use Hx: No Substance Use Type: None *Physical Exam - Vital Signs Last Vital Signs Temp Pulse Resp BP Pulse Ox 98.6 F 130 H 16 149/100 97 01/23/19 18:19 01/23/19 18:19 01/23/19 18:19 01/23/19 18:19 01/23/19 18:19 ED Treatment Course - LABORATORY CBC & Chemistry Diagram: 01/29/19 06:20 01/29/19 06:20 Medical Decision Making - Medical Decision Making 01/23/19 20:29 A/P: 48-year-old male with right lower leg pain for one week Patient with known thrombus on anticoagulation with tachycardia. Concern for PE low given patient is a 30 being treated. Additionally patient has no chest pain or shortness of breath at this time. Patient is not to get neck. Duplex Dopplers of the lower extremity Labs including cardiac profile and d-dimer Studies been discussed with radiology who is unable to perform a CTA with follow -through to catch runoff of the lower extremities. Skin chest and d-dimer is positive. Case is been discussed with attending physician 01/23/19 22:16 Laboratory Tests 01/23/19 01/23/19 01/23/19 20:55 20:55 20:55 WBC Hgb Hct Plt Count PT with INR 13.30 H INR 1.13 H D-Dimer 499 Sodium 141 Potassium 4.2 Chloride 107 Carbon Dioxide 24 BUN 17.4 Creatinine 1.2 Random Glucose 199 H 01/23/19 21:45 WBC 12.5 H Hgb 13.3 Hct 40.7 Plt Count 420 D PT with INR INR D-Dimer Sodium Potassium Chloride Carbon Dioxide BUN Creatinine Random Glucose CTA of abdominal aorta with BLE runoff ordered. 01/23/19 23:15 Ultrasound as read by Dr. Marrufo: In comparison to a previous ultrasound exam of 09/19/17 a Interval occlusion of the right popliteal and posterior tibial arteries is noted. Evaluation of the left leg omissions no Doppler evidence of a high-grade stenosis or occlusion. I will contact Dr. Chandler for likely admission 01/24/19 00:32 Case has been discussed with Dr. Chandler with vascular surgery. He agrees with CTA of abdomen with lower extremity runoff. I will contact Dr. Chandler after results of CT abdomen have been received. 01/24/19 00:40 CT as read by imaging contract engineer: There is a nonocclusive thrombus in the distal portion of the right superficial femoral artery and then a continuous occlusive thrombus in the right popliteal artery although there is good three-vessel runoff. There is slightly diminished opacification of the dorsalis pedis. Overall the length of the continuous occlusive and nonocclusive clot is approximately 17.4 cm. 01/24/19 00:52 Case has been discussed with Dr. Chandler who will see the patient in the morning. I will contact Dr. Orona for admission. 01/24/19 01:[address] Orona who accepted patient for admission. Patient is NPO for OR in am. 01/29/19 10:22 *DC/Admit/Observation/Transfer Diagnosis at time of Disposition: Right leg pain, Arterial occlusion - Discharge Dispostion Condition at time of disposition: Fair Decision to Admit order: Yes - Referrals - Patient Instructions - Post Discharge Activity
[2019-01-23 21:23] LABS: INR 1.13 (0.83-1.09); PROTHROMBIN TIME (PATIENT) 13.3 SEC (9.7-13.0)
[2019-01-23 21:33] LABS: ALBUMIN 3.2 g/dl (3.4-5.0); BILIRUBIN,TOTAL 0.2 mg/dL (0.2-1); BLOOD UREA NITROGEN 17.4 mg/dL (7-18); CALCIUM 9.4 mg/dL (8.5-10.1); CREATININE 1.2 mg/dL (0.55-1.3); POTASSIUM 4.2 mmol/L (3.5-5.1); TOT PROT 7.9 g/dl (6.4-8.2)
[2019-01-23 21:58] LABS: BASO % 0.3 % (0-2.0); EOS % 1.9 % (0-4.5); HEMATOCRIT 40.7 % (35.4-49); HEMOGLOBIN 13.3 GM/dL (11.7-16.9); LYMPH % 27.8 % (8-40); MCH 26.1 pg (25.7-33.7); MCHC 32.8 g/dl (32.0-35.9); MEAN CELL VOLUME 79.8 fl (80-96); MEAN PLT VOLUME 7.5 fl (7.5-11.1); MONO % 8.4 % (3.8-10.2); NEUT % 61.6 % (42.8-82.8); PLATELET COUNT 420 K/MM3 (134-434); RDW 14.5 % (11.9-15.9); WHITE BLOOD COUNT 12.5 K/mm3 (4.0-10.0)
[2019-01-23] MEDS ORDERED: SODIUM CHLORIDE 1,000 ML IV STA (22:17)
[2019-01-24] MEDS ORDERED: SODIUM CHLORIDE 0.45% 1,000 ML IV SCH ×3 (06:00→16:45)
[2019-01-24] MEDS: INSULIN SLIDING SCALE (NOVOLOG) 1 VIAL SQ SCH ×4 (06:14→21:33)
--- NOTE | 2019-01-24 07:58 | SPA.PREOP ---
- PRE-OP NOTE Dx: Rt Leg popliteal artery occlusion Planned Procedure: RLE angio possible plasty/stent Surgeon: Morgan Chandler DO Last Vital Signs Temp Pulse Resp BP Pulse Ox 98.1 F 89 20 139/89 97 01/24/19 06:32 01/24/19 06:32 01/24/19 06:32 01/24/19 06:32 01/24/19 03:50 Lab Results WBC 12.5 K/mm3 (4.0-10.0) H 01/23/19 21:45 RBC 5.10 M/mm3 (4.00-5.60) 01/23/19 21:45 Hgb 13.3 GM/dL (11.7-16.9) 01/23/19 21:45 Hct 40.7 % (35.4-49) 01/23/19 21:45 MCV 79.8 fl (80-96) L 01/23/19 21:45 MCHC 32.8 g/dl (32.0-35.9) 01/23/19 21:45 RDW 14.5 % (11.9-15.9) 01/23/19 21:45 Plt Count 420 K/MM3 (134-434) D 01/23/19 21:45 Sodium 141 mmol/L (136-145) 01/23/19 20:55 Potassium 4.2 mmol/L (3.5-5.1) 01/23/19 20:55 Chloride 107 mmol/L (98-107) 01/23/19 20:55 Carbon Dioxide 24 mmol/L (21-32) 01/23/19 20:55 Anion Gap 10 MMOL/L (8-16) 01/23/19 20:55 BUN 17.4 mg/dL (7-18) 01/23/19 20:55 Creatinine 1.2 mg/dL (0.55-1.3) 01/23/19 20:55 Random Glucose 199 mg/dL (74-106) H 01/23/19 20:55 Calcium 9.4 mg/dL (8.5-10.1) 01/23/19 20:55 INR 1.13 (0.83-1.09) H 01/23/19 20:55 - ASSESSMENT/PLAN 1. Make NPO except po meds 2. GI/DVT PPX 3. Medical optimization / clearance 4. Consent to be obtained by surgeon after risks, benefits and alternatives discussed with patient and or Health Care Proxy.
[2019-01-24] MEDS ORDERED: ALTEPLASE 2 MG VIAL IVPB ONE ×2 (08:00→21:30)
[2019-01-24] MEDS ORDERED: HEPARIN INFUSION - 25,000 UNITS/500 ML INFUS.BAG IVPB ONE (08:19)
--- NOTE | 2019-01-24 08:38 | HP ---
Admitting History and Physical - Admission Chief Complaint: right lower ext pain at work yesterday. Leg felt cool to touch and pt was having pain . SAme feeling as in 2018 with same problem Limitations to Obtaining History: No Limitations - Past Medical History Cardiovascular: Yes: HTN Endocrine: Yes: Diabetes Mellitus - Smoking History Smoking history: Never smoked Have you smoked in the past 12 months: Yes Aproximately how many cigarettes per day: 4 - Alcohol/Substance Use Hx Alcohol Use: No Home Medications - Allergies Allergies/Adverse Reactions: Allergies Allergy/AdvReac Type Severity Reaction Status Date / Time No Known Allergies Allergy Verified 01/23/19 18:22 - Home Medications Home Medications: Ambulatory Orders Aspirin [ASA -] 81 mg PO DAILY #30 tab.chew 09/22/17 Atorvastatin Ca [Lipitor] 40 mg PO HS #30 tablet 09/22/17 Glyburide [Micronase -] 5 mg PO DAILY@0700 #30 tablet 09/22/17 Metoprolol Tartrate [Lopressor -] 25 mg PO BID #30 tablet 09/22/17 Insulin Glargine,Hum.rec.anlog [Lantus Solostar PEN (NF)] 0 units SQ BID Rivaroxaban [Xarelto -] 20 mg PO DAILY 01/24/19 Review of Systems - Review of Systems Constitutional: reports: No Symptoms Eyes: reports: No Symptoms HENT: reports: No Symptoms Neck: reports: No Symptoms Cardiovascular: reports: No Symptoms Respiratory: reports: No Symptoms Gastrointestinal: reports: No Symptoms Genitourinary: reports: No Symptoms Breasts: reports: No Symptoms Reported Musculoskeletal: reports: No Symptoms Integumentary: reports: No Symptoms Neurological: reports: No Symptoms Endocrine: reports: No Symptoms Hematology/Lymphatic: reports: No Symptoms Psychiatric: reports: No Symptoms Physical Examination Vital Signs: Vital Signs Temperature 98.1 F 01/24/19 06:32 Pulse Rate 89 01/24/19 06:32 Respiratory Rate 20 01/24/19 06:32 Blood Pressure 139/89 01/24/19 06:32 O2 Sat by Pulse Oximetry (%) 97 01/24/19 03:50 Constitutional: Yes: Well Nourished, No Distress, Calm Eyes: Yes: WNL, Conjunctiva Clear, EOM Intact HENT: Yes: WNL, Atraumatic, Normocephalic Neck: Yes: WNL, Supple, Trachea Midline Cardiovascular: Yes: WNL, Regular Rate and Rhythm Respiratory: Yes: WNL, Regular, CTA Bilaterally Gastrointestinal: Yes: WNL, Normal Bowel Sounds Musculoskeletal: Yes: WNL Extremities: Yes: WNL Edema: No Peripheral Pulses WNL: No (dopplerable pulses. Motor and sensory intact ) Integumentary: Yes: WNL Neurological: Yes: WNL, Alert, Oriented ...Motor Strength: WNL Psychiatric: Yes: WNL Labs: CBC, BMP 01/23/19 21:45 01/23/19 20:55 Problem List - Problems (1) Arterial occlusion Code(s): I70.90 - UNSPECIFIED ATHEROSCLEROSIS (2) Right leg pain Assessment/Plan: for right lower ext angiogram possible thrombolysis Code(s): M79.604 - PAIN IN RIGHT LEG
[2019-01-24] MEDS ORDERED: MIDAZOLAM HCL 2 MG/2 ML SINGLE DOSE VIAL ONE ×2 (08:44)
[2019-01-24] MEDS ORDERED: PROPOFOL 20 ML ONE ×3 (08:52)
[2019-01-24] MEDS ORDERED: ceFAZolin SODIUM 1 GM VIAL ONE ×2 (08:55)
[2019-01-24] MEDS ORDERED: ceFAZolin SODIUM 1 GM VIAL IVPB ONE (08:57)
[2019-01-24] MEDS ORDERED: LIDOCAINE HCL 1%, 10 MG/ML (50 mL VIAL) NR ONE (09:06)
--- NOTE | 2019-01-24 09:38 | OP ---
Operative Note - Note: Operative Date: 01/24/19 Pre-Operative Diagnosis: Right lower extremity ischemia Operation: Aortogram, RLE angiogram, infusion of thrombolysis Findings: popliteal artery thrombus tibial artery thrombus Post-Operative Diagnosis: Same as Pre-op Surgeon: Morgan Chandler Anesthesia: Fractional Estimated Blood Loss (mls): 30 Operative Report Dictated: Yes
[2019-01-24] MEDS ORDERED: ONDANSETRON 4 MG/2 ML VIAL IVPUSH PRN (09:40)
[2019-01-24] MEDS ORDERED: oxyCODONE HCL 5 MG TABLET PO PRN (09:40)
[2019-01-24] MEDS ORDERED: PROMETHAZINE HCL 25 MG/1 ML VIAL IVPB PRN (09:40)
--- NOTE | 2019-01-24 11:26 | EKG ---
Test Reason : Blood Pressure : / mmHG Vent. Rate : 112 BPM Atrial Rate : 112 BPM P-R Int : 142 ms QRS Dur : 086 ms QT Int : 328 ms P-R-T Axes : 044 -84 021 degrees QTc Int : 447 ms POOR DATA QUALITY, INTERPRETATION MAY BE ADVERSELY AFFECTED SINUS TACHYCARDIA LEFT ANTERIOR FASCICULAR BLOCK ANTEROLATERAL INFARCT (CITED ON OR BEFORE 10-AUG-2017) ABNORMAL ECG WHEN COMPARED WITH ECG OF 19-SEP-2017 20:02, NO SIGNIFICANT CHANGE WAS FOUND Confirmed by MARCE OSBORN, YAMILETH ([id number]) on 01/24/2019 11:25:40 AM Referred By: Confirmed By:YAMILETH ZHENG MD
--- NOTE | 2019-01-24 12:05 | CONSULT ---
Consultation: REQUESTING PROVIDER: Dr. Chandler CONSULT REQUEST: We have been asked to medically evaluate this patient for ICU postoperative admission HISTORY OF PRESENT ILLNESS: Patient is a 48 year old male with history of right lower extremity popliteal arterial occlusion (07/2017 s/p RLE angiogram and TPA infusion), coronary artery disease s/p stents, hypertension, diabetes mellitus, presented with complaint of cool and painful right lower extremity. Patient admits insurance difficulties that led to him not being able to take his Xarelto for the past month. In ED, duplex ultrasound revealed right popliteal, and posterior tibial artery occlusion. CTA with runoff reveals occlusive thrombus in the right popliteal artery, with nonocclusive thrombus in distal portion of right superficial femoral artery. Patient is POD #0 s/p right lower extremity angiogram, and infusion of thrombolysis. Patient endorses minimal right lower extremity pain. Denies subjective fevers, chills, shortness of breaht, chest pain, palpitations, abdominal pain, nausea, vomiting. REVIEW OF SYSTEMS: CONSTITUTIONAL: Absent: fever, chills, diaphoresis, generalized weakness, malaise, loss of appetite, weight change HEENT: Absent: rhinorrhea, nasal congestion, throat pain, throat swelling, difficulty swallowing, mouth swelling, ear pain, eye pain, visual changes CARDIOVASCULAR: Absent: chest pain, syncope, palpitations, irregular heart rate, lightheadedness , peripheral edema RESPIRATORY: Absent: cough, shortness of breath, dyspnea with exertion, orthopnea, wheezing, stridor, hemoptysis GASTROINTESTINAL: Absent: abdominal pain, abdominal distension, nausea, vomiting, diarrhea, constipation, melena, hematochezia GENITOURINARY: Absent: dysuria, frequency, urgency, hesitancy, hematuria, flank pain, genital pain MUSCULOSKELETAL: Absent: myalgia, arthralgia, joint swelling, back pain, neck pain SKIN: Absent: rash, itching, pallor HEMATOLOGIC/IMMUNOLOGIC: Absent: easy bleeding, easy bruising, lymphadenopathy, frequent infections ENDOCRINE: Absent: unexplained weight gain, unexplained weight loss, heat intolerance, cold intolerance NEUROLOGIC: Absent: headache, focal weakness or paresthesias, dizziness, unsteady gait, seizure, mental status changes, bladder or bowel incontinence PSYCHIATRIC: Absent: anxiety, depression, suicidal or homicidal ideation, hallucinations. PHYSICAL EXAMINATION Vital Signs - 24 hr 08/13/19 08/14/19 08/14/19 18:19 02:48 03:37 Temperature 98.6 F 98.2 F Pulse Rate 130 H 90 Pulse Rate [ 95 H Left Radial] Respiratory 16 17 20 Rate Blood Pressure 149/100 147/91 Blood Pressure 135/84 [Left Arm] O2 Sat by Pulse 97 98 Oximetry (%) 01/24/19 01/24/19 01/24/19 03:50 06:32 09:40 Temperature 98.1 F 98.4 F Pulse Rate 89 88 Pulse Rate [ Left Radial] Respiratory 20 14 Rate Blood Pressure 139/89 148/96 Blood Pressure [Left Arm] O2 Sat by Pulse 97 98 Oximetry (%) 01/24/19 01/24/19 01/24/19 09:55 10:10 10:25 Temperature Pulse Rate 88 86 88 Pulse Rate [ Left Radial] Respiratory 16 16 16 Rate Blood Pressure 142/97 142/91 136/89 Blood Pressure [Left Arm] O2 Sat by Pulse 97 98 98 Oximetry (%) 01/24/19 01/24/19 01/24/19 10:40 10:55 11:10 Temperature Pulse Rate 88 88 87 Pulse Rate [ Left Radial] Respiratory 14 16 16 Rate Blood Pressure 136/89 138/89 139/91 Blood Pressure [Left Arm] O2 Sat by Pulse 98 98 98 Oximetry (%) 01/24/19 11:25 Temperature 98.4 F Pulse Rate 93 H Pulse Rate [ Left Radial] Respiratory 14 Rate Blood Pressure 137/90 Blood Pressure [Left Arm] O2 Sat by Pulse 99 Oximetry (%) GENERAL: Awake, alert, and fully oriented, in no acute distress. HEAD: Normal with no signs of trauma. EYES: Pupils equal, round and reactive to light, extraocular movements intact, sclera anicteric, conjunctiva clear. No lid lag. EARS, NOSE, THROAT: Ears normal, nares patent, oropharynx clear without exudates. Moist mucous membranes. NECK: Normal range of motion, supple without lymphadenopathy, JVD, or masses. LUNGS: Breath sounds equal, clear to auscultation bilaterally. No wheezes, and no crackles. No accessory muscle use. HEART: Regular rate and rhythm, normal S1 and S2 without murmur, rub or gallop. ABDOMEN: Soft, nontender, not distended, normoactive bowel sounds, no guarding, no rebound, no masses. No hepatomegaly or splenomegaly. MUSCULOSKELETAL: Normal range of motion at all joints. No bony deformities or tenderness. No CVA tenderness. UPPER EXTREMITIES: 2+ radial pulses bilaterally, warm, well-perfused. No peripheral edema. LOWER EXTREMITIES: Right lower extremity PT pulse dopplerable. Left lower extremity DP pulses 2+ palpable. Sensation intact equally bilaterally. Patient freely moves toes bilateral lower extremities. NEUROLOGICAL: Cranial nerves II-XII intact. Normal speech. PSYCHIATRIC: Cooperative. Good eye contact. Appropriate mood and affect. SKIN: Warm, dry. Laboratory Results - last 24 hr 01/23/19 01/23/19 01/23/19 20:55 20:55 20:55 WBC RBC Hgb Hct MCV MCH MCHC RDW Plt Count MPV Absolute Neuts (auto) Neutrophils % Lymphocytes % Monocytes % Eosinophils % Basophils % Nucleated RBC % PT with INR 13.30 H INR 1.13 H D-Dimer 499 Sodium 141 Potassium 4.2 Chloride 107 Carbon Dioxide 24 Anion Gap 10 BUN 17.4 Creatinine 1.2 Est GFR (CKD-EPI)AfAm 82.96 Est GFR (CKD-EPI)NonAf 71.58 POC Glucometer Random Glucose 199 H Calcium 9.4 Total Bilirubin 0.2 AST 11 L ALT 11 L Alkaline Phosphatase 116 Total Protein 7.9 Albumin 3.2 L 01/23/19 01/24/19 21:45 06:07 WBC 12.5 H RBC 5.10 Hgb 13.3 Hct 40.7 MCV 79.8 L MCH 26.1 MCHC 32.8 RDW 14.5 Plt Count 420 D MPV 7.5 Absolute Neuts (auto) 7.7 Neutrophils % 61.6 Lymphocytes % 27.8 Monocytes % 8.4 Eosinophils % 1.9 Basophils % 0.3 Nucleated RBC % 0 PT with INR INR D-Dimer Sodium Potassium Chloride Carbon Dioxide Anion Gap BUN Creatinine Est GFR (CKD-EPI)AfAm Est GFR (CKD-EPI)NonAf POC Glucometer 146 Random Glucose Calcium Total Bilirubin AST ALT Alkaline Phosphatase Total Protein Albumin Active Medications Generic Name Dose Route Start Last Admin Trade Name Freq PRN Reason Stop Dose Admin Aspirin 81 mg 01/24/19 10:00 Asa - PO DAILY MARYJO Atorvastatin Calcium 40 mg 01/24/19 22:00 Lipitor - PO HS MARYJO Fentanyl 50 mcg 01/24/19 09:40 Sublimaze Injection - IVPUSH [id number] PRN PAIN-PACU ORDER X 4 DOSES ONLY Sodium Chloride 1,000 mls @ 50 mls/hr 01/24/19 11:15 01/24/19 12:00 1/2 Normal Saline IV 50 mls/hr ASDIR MARYJO Administration Insulin Aspart 1 vial 01/24/19 07:00 01/24/19 06:14 Novolog Vial Sliding Scale - SQ Not Given ACHS MARYJO Protocol Metoprolol Tartrate 25 mg 01/24/19 10:00 Lopressor - PO BID MARYJO Ondansetron HCl 4 mg 01/24/19 09:40 Zofran Injection IVPUSH Q6H PRN NAUSEA AND/OR VOMITING Oxycodone HCl 10 mg 01/24/19 09:40 Roxicodone - PO 01/25/19 09:39 Q4H PRN PAIN LEVEL 6-10 Promethazine HCl 12.5 mg 01/24/19 09:40 Phenergan Injection - IVPB Q6H PRN NAUSEA-FOR RESCUE AFTER 15 MIN ASSESSMENT/PLAN: Patient is a 48 year old male with history of right lower extremity popliteal arterial occlusion (07/2017 s/p RLE angiogram and TPA infusion), coronary artery disease s/p stents, hypertension, diabetes mellitus, admitted to ICU s/p right lower extremity angiogram, and infusion of thrombolysis. Neurologic -Patient is awake, alert, oriented in no acute distress -Monitor for signs of mental status change Pulmonary -Patient is saturating well on room air -Maintain oxygen saturation greater than 90% Cardiovascular History of right lower extremity popliteal artery occlusion S/P right lower extremity angiogram, and infusion of thrombolysis. -Alteplase drip, Heparin drip (nontitratable) per Dr. Chandler -Follow CBC, BMP, PT/INR, PTT, Fibronigen at 1500, 2100, 0300. Will stop Alteplase drip if Fibrinogen less than 100. -Vascular surgery recommendations (Dr. Chandler) appreciated. Gastrointestinal -Patient is NPO for operating room tomorrow at 8AM Endocrine Diabetes mellitis -Insulin sliding scale ACHS -Fingerstick blood glucose ACHS Disposition: We will continue to follow the patient. Thank you for this consultative opportunity. Visit type - Emergency Visit Emergency Visit: Yes ED Registration Date: 01/24/19 Care time: The patient presented to the Emergency Department on the above date and was hospitalized for further evaluation of their emergent condition. - New Patient This patient is new to me today: Yes Date on this admission: 01/24/19 - Critical Care Critical Care patient: Yes Total Critical Care Time (in minutes): 35 Critical Care Statement: The care of this patient involved high complexity decision making to prevent further life threatening deterioration of the patient 's condition and/or to evaluate & treat vital organ system(s) failure or risk of failure. ATTENDING PHYSICIAN STATEMENT I saw and evaluated the patient. I reviewed the resident's note and discussed the case with the resident. I agree with the resident's findings and plan as documented. SUBJECTIVE: OBJECTIVE: ASSESSMENT AND PLAN:
[2019-01-24] MEDS: METOPROLOL TARTRATE 25 MG TABLET (FP) PO SCH ×2 (12:29→21:15)
[2019-01-24] MEDS: ASPIRIN 81 MG CHEWABLE TABLETS PO SCH (12:29)
--- NOTE | 2019-01-24 12:59 | OP ---
DATE OF OPERATION: 01/24/2019 PREOPERATIVE DIAGNOSIS: Right lower extremity ischemia. POSTOPERATIVE DIAGNOSIS: Right lower extremity ischemia. PROCEDURE: Aortogram, right lower extremity angiogram, and infusion of thrombolysis. SURGEON: Morgan Barragan MD ANESTHESIA: Fractional. BLOOD LOSS: 20 mL. INDICATIONS: The patient is a 48-year-old male who comes in with right lower extremity ischemia. On CTA performed in the ER, it showed that he has clot in his popliteal artery and his tibial arteries. He had the same type of disease pattern in 2018, and at that point, he was started on Xarelto. Upon interviewing the patient here in the holding area, patient has not been taking his Xarelto religiously. He has missed doses last month and he has missed a lot of doses this month, and he now has the same pathology. Patient was consented for the procedure understanding all risks, benefits, and alternatives. He was then taken to the operating room. PROCEDURE IN DETAIL: Once in the operating suite, he was placed on the operating table in the supine manner, and the area of the right and left groin were prepped and draped in the sterile surgical manner. We then injected 10 mL of lidocaine 1% over the left common femoral artery. We then took our micropuncture needle and punctured the left common femoral artery under ultrasound guidance. The micropuncture wire was inserted, micropuncture sheath was inserted, and a traditional 5-Welsh sheath was inserted. A 0.035 floppy guidewire was inserted into the aorta followed by an Omni Flush catheter. We then shot an aortogram via hand injection showing that the aorta and iliac arteries were without any disease. We then placed a 0.035 floppy guidewire up and over to the right common femoral artery and our Omni Flush catheter followed. We then shot a right lower extremity angiogram via hand injection showing that the common femoral artery and the profunda were patent, the SFA was patent, the distal SFA was patent, but the above-knee popliteal artery and below that into the tibial arteries and the TP trunk were all occluded with clot. At this point, we placed a 0.035 stiff guidewire down into the SFA, removed our Omni Flush catheter and placed a 6 x 45 crossover sheath. We administered 5000 units of IV heparin to the patient. We then placed an EKOS catheter down to the distal SFA and into the above-knee popliteal artery. We then went ahead and connected that to our EKOS machine. We were infusing 1 mg of tPA an hour and heparin peripherally. At this point, we went ahead and secured our catheters sterilely by placing 2 sterile Tegaderms over our catheters, and the patient was then transferred to PACU in stable condition. Patient tolerated the procedure with no complications. Total blood loss 30 mL. Patient will be brought back for a thrombolysis check tomorrow morning. MORGAN BARRAGAN DO NP/[id number]
[2019-01-24] MEDS: ACETAMINOPHEN 1000 MG/100 ML VIAL (NON FORMULARY) IVPB PRN ×2 (13:39→22:44)
[2019-01-24] MEDS ORDERED: HEPARIN INFUSION - 25,000 UNITS/500 ML INFUS.BAG IVPB SCH (13:45)
[2019-01-24] MEDS ORDERED: SODIUM CHLORIDE 1,000 ML IV SCH (15:30)
[2019-01-24 16:09] LABS: HEMATOCRIT 34.8 % (35.4-49); HEMOGLOBIN 11.6 GM/dL (11.7-16.9); MCH 26.3 pg (25.7-33.7); MCHC 33.3 g/dl (32.0-35.9); MEAN PLT VOLUME 7.7 fl (7.5-11.1); PLATELET COUNT 364 K/MM3 (134-434); RBC 4.41 M/mm3 (4.00-5.60); RDW 14.1 % (11.9-15.9); WHITE BLOOD COUNT 8.3 K/mm3 (4.0-10.0)
[2019-01-24 16:10] LABS: INR 1.07 (0.83-1.09); PROTHROMBIN TIME (PATIENT) 12.6 SEC (9.7-13.0)
[2019-01-24 16:17] LABS: BLOOD UREA NITROGEN 12.1 mg/dL (7-18); CALCIUM 8.3 mg/dL (8.5-10.1); POTASSIUM 3.6 mmol/L (3.5-5.1)
[2019-01-24] MEDS ORDERED: MORPHINE SULFATE 2 MG/ML VIAL IVPUSH ONE (17:26)
[2019-01-24] MEDS ORDERED: PT OWN MED DRAWER 7, Y5N ONE (21:11)
[2019-01-24] MEDS ORDERED: INSULIN (NOVOLOG) ASPART 100 UNITS/ML 10ML VIAL ONE (21:11)
[2019-01-24] MEDS: ATORVASTATIN CA 40 MG TABLET (FP) PO SCH (21:15)
[2019-01-24 21:50] LABS: HEMATOCRIT 35.3 % (35.4-49); HEMOGLOBIN 11.7 GM/dL (11.7-16.9); MCH 26.4 pg (25.7-33.7); MCHC 33.1 g/dl (32.0-35.9); MEAN CELL VOLUME 79.9 fl (80-96); MEAN PLT VOLUME 7.4 fl (7.5-11.1); PLATELET COUNT 353 K/MM3 (134-434); RBC 4.42 M/mm3 (4.00-5.60); RDW 14.4 % (11.9-15.9); WHITE BLOOD COUNT 9.1 K/mm3 (4.0-10.0)
[2019-01-24 21:53] LABS: INR 1.11 (0.83-1.09); PROTHROMBIN TIME (PATIENT) 13.1 SEC (9.7-13.0)
[2019-01-24 21:56] LABS: ACTIVATED PTT 25.6 SECONDS (25.2-36.5)
[2019-01-24 22:14] LABS: BLOOD UREA NITROGEN 11.5 mg/dL (7-18); CALCIUM 8.1 mg/dL (8.5-10.1); CREATININE 0.9 mg/dL (0.55-1.3); POTASSIUM 3.7 mmol/L (3.5-5.1)
--- NOTE | 2019-01-24 23:56 | PN ---
Progress Note, Physician History of Present Illness: Pt tolerated procedure - Current Medication List Current Medications: Active Medications Acetaminophen (Ofirmev Injection -) 1,000 mg IVPB Q6H PRN PRN Reason: PAIN LEVEL 6-10 Last Admin: 01/24/19 22:44 Dose: 1,000 mg Aspirin (Asa -) 81 mg PO DAILY [facility] Last Admin: 01/24/19 12:29 Dose: Not Given Atorvastatin Calcium (Lipitor -) 40 mg PO HS [facility] Last Admin: 01/24/19 21:15 Dose: Not Given Heparin Sodium/Dextrose (Heparin Infusion -) 25,000 units in 500 mls @ 10 mls/ hr IVPB ASDIR [facility] Last Admin: 01/24/19 09:40 Dose: 10 mls/hr Sodium Chloride (Normal Saline -) 1,000 mls @ 70 mls/hr IV ASDIR [facility] Last Admin: 01/24/19 12:00 Dose: 70 mls/hr Sodium Chloride (1/2 Normal Saline) 1,000 mls @ 50 mls/hr IV ASDIR [facility] Last Admin: 01/24/19 12:00 Dose: 50 mls/hr Insulin Aspart (Novolog Vial Sliding Scale -) 1 vial SQ ACHS [facility]; Protocol Last Admin: 01/24/19 21:33 Dose: Not Given Metoprolol Tartrate (Lopressor -) 25 mg PO BID [facility] Last Admin: 01/24/19 21:15 Dose: Not Given Ondansetron HCl (Zofran Injection) 4 mg IVPUSH Q6H PRN PRN Reason: NAUSEA AND/OR VOMITING Promethazine HCl (Phenergan Injection -) 12.5 mg IVPB Q6H PRN PRN Reason: NAUSEA-FOR RESCUE AFTER 15 MIN - Objective Vital Signs: Vital Signs Temperature 99.3 F 01/24/19 19:00 Pulse Rate 94 H 01/24/19 19:00 Respiratory Rate 23 H 01/24/19 19:00 Blood Pressure 135/77 01/24/19 19:00 O2 Sat by Pulse Oximetry (%) 95 01/24/19 16:28 Constitutional: Yes: Well Nourished Neck: Yes: WNL, Supple Cardiovascular: Yes: WNL, Regular Rate and Rhythm Respiratory: Yes: WNL, Regular, CTA Bilaterally Gastrointestinal: Yes: WNL, Normal Bowel Sounds, Soft Extremities: Yes: WNL Labs: CBC, BMP 01/24/19 21:00 01/24/19 21:00 INR, PTT INR 1.11 (0.83-1.09) H 01/24/19 21:00 Fibrinogen 212.0 mg/dL (238-498) L D 01/24/19 21:00 Problem List - Problems (1) Arterial occlusion Assessment/Plan: Duplex ultrasound revealed right popliteal, and posterior tibial artery occlusion. CTA with runoff reveals occlusive thrombus in the right popliteal artery, with nonocclusive thrombus in distal portion of right superficial femoral artery. S/P RLE angiogram, and infusion of thrombolysis(Alteplase Cont asa. Code(s): I70.90 - UNSPECIFIED ATHEROSCLEROSIS (2) Diabetes type 2, uncontrolled Assessment/Plan: Cont sliding scale w/ coverage Code(s): E11.65 - TYPE 2 DIABETES MELLITUS WITH HYPERGLYCEMIA (3) Hypertension Assessment/Plan: BP stable Cont metoprolol Code(s): I10 - ESSENTIAL (PRIMARY) HYPERTENSION (4) CAD (coronary artery disease) Assessment/Plan: Cont asa Code(s): I25.10 - ATHSCL HEART DISEASE OF [place] CORONARY ARTERY W/O ANG PCTRS (5) HLD (hyperlipidemia) Assessment/Plan: Cont lipitor Code(s): E78.5 - HYPERLIPIDEMIA, UNSPECIFIED
[2019-01-25 03:16] LABS: HEMATOCRIT 35.8 % (35.4-49); HEMOGLOBIN 11.8 GM/dL (11.7-16.9); MCH 26.2 pg (25.7-33.7); MCHC 32.9 g/dl (32.0-35.9); MEAN CELL VOLUME 79.7 fl (80-96); MEAN PLT VOLUME 7.3 fl (7.5-11.1); PLATELET COUNT 334 K/MM3 (134-434); RDW 14.2 % (11.9-15.9); WHITE BLOOD COUNT 8.6 K/mm3 (4.0-10.0)
[2019-01-25] MEDS ORDERED: MORPHINE SULFATE 2 MG/ML VIAL IVPUSH ONE ×2 (03:20→05:54)
[2019-01-25 03:38] LABS: BLOOD UREA NITROGEN 9.6 mg/dL (7-18); CALCIUM 7.6 mg/dL (8.5-10.1); CREATININE 0.8 mg/dL (0.55-1.3); POTASSIUM 3.5 mmol/L (3.5-5.1)
[2019-01-25 03:44] LABS: INR 1.12 (0.83-1.09); PROTHROMBIN TIME (PATIENT) 13.2 SEC (9.7-13.0)
[2019-01-25] MEDS: ACETAMINOPHEN 1000 MG/100 ML VIAL (NON FORMULARY) IVPB PRN (04:41)
--- NOTE | 2019-01-25 04:43 | PN ---
Progress Note (short form) - Note Progress Note: Noted by nursing staff that no longer able to doppler right sided posterior tibialis pulse Right lower extremity slightly cooler than left. Patient able to move his toes bilaterally, and sensation intact bilaterally Case discussed with Dr. Chandler, will increase Alteplase to 25mL/ hour, and continue monitoring Fibrinogen Morphine 2mg IV push for pain
[2019-01-25] MEDS ORDERED: MORPHINE SULFATE 2 MG/ML VIAL IM ONE (05:43)
[2019-01-25] MEDS ORDERED: morphine CARPU-JECT 2 MG/1 ML DISP.SYRIN IVPUSH ONE (05:54)
[2019-01-25] MEDS: INSULIN SLIDING SCALE (NOVOLOG) 1 VIAL SQ SCH ×4 (06:34→22:08)
[2019-01-25 07:09] LABS: BLOOD UREA NITROGEN 10.1 mg/dL (7-18); CREATININE 0.9 mg/dL (0.55-1.3); POTASSIUM 3.5 mmol/L (3.5-5.1)
[2019-01-25 07:13] LABS: HEMATOCRIT 35.1 % (35.4-49); HEMOGLOBIN 11.5 GM/dL (11.7-16.9); MCH 26.3 pg (25.7-33.7); MCHC 32.8 g/dl (32.0-35.9); MEAN CELL VOLUME 80.1 fl (80-96); MEAN PLT VOLUME 7.3 fl (7.5-11.1); PLATELET COUNT 324 K/MM3 (134-434); RBC 4.38 M/mm3 (4.00-5.60); RDW 14.1 % (11.9-15.9); WHITE BLOOD COUNT 9.4 K/mm3 (4.0-10.0)
[2019-01-25] MEDS ORDERED: LIDOCAINE HCL 1%, 10 MG/ML (20ML VIAL) ONE (07:36)
[2019-01-25] MEDS ORDERED: HEPARIN NA (PORCINE) 5,000 UNITS/ML 1ML VIAL ONE ×2 (07:36→10:53)
[2019-01-25] MEDS: MORPHINE SULFATE 2 MG/ML VIAL IVPUSH PRN ×2 (07:37→21:15)
[2019-01-25] MEDS ORDERED: MIDAZOLAM HCL 2 MG/2 ML SINGLE DOSE VIAL ONE ×2 (07:45)
--- NOTE | 2019-01-25 08:14 | PN ---
Physical Exam: SUBJECTIVE: Briefly, well-known patient who comes to our facilities due to cold and painful R foot. Pt noted to have had insurance problems with Xarelto and could not receive AC for 1 month. Pt reports calling about his medication, receiving a phone number to call, but never followed up with it. Pt overnight was noted to have R foot become colder and more painful and vascular was contacted regarding further mgmt. Pt's Alteplase directed catheter was increased overnight. Today pt complains of severe R foot pain which has been increasing. He is to go to the OR in the AM today for repeat angiogram and possible further intervention. OBJECTIVE: Vital Signs Period Temp Pulse Resp BP Sys/Miller Pulse Ox Last 24 Hr 98.0 F-99.3 F 84-100 14-26 127-158/74-101 95-99 GENERAL: Mild distress 2/2to pain, awake, alert, and fully oriented HEENT: NC/AT, EOMI, BARBRA, sclera anicteric, MMM NECK: No JVD LUNGS: CTA bilaterally, no wheezes, no crackles, no accessory muscle use. RA 100 % SpO2 HEART: RRR, S1, S2 without murmur ABDOMEN: Soft, NT/ND, normoactive bowel sounds, no guarding EXTREMITIES: 1+ DP and PT L pulse, not able to palpate or doppler PT or DP in R foot, cool to knee with questionable pallor in distal foot, no edema. NEUROLOGICAL: pharmacy aide II-XII grossly intact. Strength 5/5 throughout. Hypersensation noted at R foot. ROM limited in R foot due to pain, but able to move toes, Normal speech, gait not observed. PSYCH: Normal mood, normal affect. SKIN: Warm, dry, no rashes noted Laboratory Results 01/24/19 01/24/19 01/24/19 10:00 14:09 15:05 WBC RBC Hgb Hct MCV MCH MCHC RDW Plt Count MPV PT with INR 12.60 INR 1.07 PTT (Actin FS) 22.0 L Fibrinogen Sodium Potassium Chloride Carbon Dioxide Anion Gap BUN Creatinine Est GFR (CKD-EPI)AfAm Est GFR (CKD-EPI)NonAf POC Glucometer 97 Random Glucose Calcium Magnesium Blood Type O POSITIVE Antibody Screen Negative 01/24/19 01/24/19 01/24/19 15:05 15:05 15:05 WBC 8.3 RBC 4.41 Hgb 11.6 L Hct 34.8 L MCV 79.0 L MCH 26.3 MCHC 33.3 RDW 14.1 Plt Count 364 MPV 7.7 PT with INR INR PTT (Actin FS) Fibrinogen > 500.0 H Sodium 141 Potassium 3.6 Chloride 110 H Carbon Dioxide 22 Anion Gap 8 BUN 12.1 Creatinine 1.0 Est GFR (CKD-EPI)AfAm 103.42 Est GFR (CKD-EPI)NonAf 89.23 POC Glucometer Random Glucose 97 Calcium 8.3 L Magnesium Blood Type Antibody Screen 01/24/19 01/24/19 01/24/19 16:55 21:00 21:00 WBC 9.1 RBC 4.42 Hgb 11.7 Hct 35.3 L MCV 79.9 L MCH 26.4 MCHC 33.1 RDW 14.4 Plt Count 353 MPV 7.4 L PT with INR 13.10 H INR 1.11 H PTT (Actin FS) 25.6 Fibrinogen Sodium Potassium Chloride Carbon Dioxide Anion Gap BUN Creatinine Est GFR (CKD-EPI)AfAm Est GFR (CKD-EPI)NonAf POC Glucometer 93 Random Glucose Calcium Magnesium Blood Type Antibody Screen 01/24/19 01/24/19 01/24/19 21:00 21:00 21:31 WBC RBC Hgb Hct MCV MCH MCHC RDW Plt Count MPV PT with INR INR PTT (Actin FS) Fibrinogen 212.0 L D Sodium 142 Potassium 3.7 Chloride 110 H Carbon Dioxide 22 Anion Gap 10 BUN 11.5 Creatinine 0.9 Est GFR (CKD-EPI)AfAm 117.47 Est GFR (CKD-EPI)NonAf 101.35 POC Glucometer 95 Random Glucose 101 Calcium 8.1 L Magnesium 2.0 Blood Type Antibody Screen 01/25/19 01/25/19 01/25/19 00:40 03:00 03:00 WBC RBC Hgb Hct MCV MCH MCHC RDW Plt Count MPV PT with INR INR PTT (Actin FS) 26.1 Fibrinogen 236.0 L Sodium 142 Potassium 3.5 Chloride 113 H Carbon Dioxide 20 L Anion Gap 9 BUN 9.6 Creatinine 0.8 Est GFR (CKD-EPI)AfAm 122.43 Est GFR (CKD-EPI)NonAf 105.63 POC Glucometer Random Glucose 99 Calcium 7.6 L Magnesium Blood Type Antibody Screen 08/01/25/19 01/25/19 03:00 03:00 03:00 WBC 8.6 RBC 4.50 Hgb 11.8 Hct 35.8 MCV 79.7 L MCH 26.2 MCHC 32.9 RDW 14.2 Plt Count 334 MPV 7.3 L PT with INR 13.20 H INR 1.12 H PTT (Actin FS) Fibrinogen 388.0 D Sodium Potassium Chloride Carbon Dioxide Anion Gap BUN Creatinine Est GFR (CKD-EPI)AfAm Est GFR (CKD-EPI)NonAf POC Glucometer Random Glucose Calcium Magnesium Blood Type Antibody Screen 01/25/19 01/25/19 01/25/19 06:00 06:00 06:14 WBC 9.4 RBC 4.38 Hgb 11.5 L Hct 35.1 L MCV 80.1 MCH 26.3 MCHC 32.8 RDW 14.1 Plt Count 324 MPV 7.3 L PT with INR INR PTT (Actin FS) Fibrinogen Sodium 141 Potassium 3.5 Chloride 110 H Carbon Dioxide 18 L Anion Gap 13 BUN 10.1 Creatinine 0.9 Est GFR (CKD-EPI)AfAm 116.65 Est GFR (CKD-EPI)NonAf 100.64 POC Glucometer 126 Random Glucose 138 H Calcium 8.0 L Magnesium Blood Type Antibody Screen Active Medications Generic Name Dose Route Start Last Admin Trade Name Freq PRN Reason Stop Dose Admin Acetaminophen 1,000 mg 01/24/19 12:23 01/25/19 04:41 Ofirmev Injection - IVPB 1,000 mg Q6H PRN Administration PAIN LEVEL 7-10 Aspirin 81 mg 01/24/19 10:00 01/24/19 12:29 Asa - PO Not Given DAILY MARYJO Atorvastatin Calcium 40 mg 01/24/19 22:00 01/24/19 21:15 Lipitor - PO Not Given HS MARYJO Heparin Sodium/Dextrose 25,000 units in 500 mls @ 10 mls/hr 01/24/19 13:45 09:40 Heparin Infusion - IVPB 10 mls/hr ASDIR MARYJO Administration Sodium Chloride 1,000 mls @ 50 mls/hr 01/24/19 16:45 01/24/19 12:00 1/2 Normal Saline IV 50 mls/hr ASDIR MARYJO Administration Insulin Aspart 1 vial 01/24/19 07:00 01/25/19 06:34 Novolog Vial Sliding Scale - SQ Not Given ACHS [facility] Protocol Metoprolol Tartrate 25 mg 01/24/19 10:00 01/24/19 21:15 Lopressor - PO Not Given BID [facility] Morphine Sulfate 2 mg 01/25/19 07:12 01/25/19 07:37 Morphine Sulfate IVPUSH 2 mg Q3H PRN Administration PAIN LEVEL 4-6 Ondansetron HCl 4 mg 01/24/19 09:40 Zofran Injection IVPUSH Q6H PRN NAUSEA AND/OR VOMITING Promethazine HCl 12.5 mg 01/24/19 09:40 Phenergan Injection - IVPB Q6H PRN NAUSEA-FOR RESCUE AFTER 15 MIN ASSESSMENT/PLAN: R occlusive popliteal artery thrombus R posterior tibial artery thrombus CAD s/p PCI stenting HTN T2DM --Cannot doppler PT or DP R foot pulses currently --Vascular aware; likely 2/2 to thrombus moving distally --Pt to return to OR today for repeat angiogram at minimum --Continue pain mgmt; Morphine 2mg q3h PRN for 6-10 --Monitor dopplers for pulses --Monitor fibrinogen levels; to f/u on morning dose --If drops below 100 will reduce rate --Continue heparin gtt NONTITRATABLE in addition to Ateplase directed therapy --Continue other home medications: ASA 81mg qdaily for CAD/stenting hx Lipitor 40mg HS PO Lopressor 25mg BID PO FEN: Fluids: 1/2NS@50cc/hr while NPO Electrolyte abnormalities: Hyperchloridemia; monitor with hypotonic fluids Nutrition: NPO given OR PPX DVT - Already heparinized and TPA directed catheter GI - Not indicated currently Dispo: Continue ICU monitoring; monitor dopplers Case discussed with Dr. Galeano and Dr. Ramesh Le, DO - IM PGY-3 Visit type - Emergency Visit Emergency Visit: Yes ED Registration Date: 01/24/19 Care time: The patient presented to the Emergency Department on the above date and was hospitalized for further evaluation of their emergent condition. - New Patient This patient is new to me today: Yes Date on this admission: 01/25/19 - Critical Care Critical Care patient: Yes Total Critical Care Time (in minutes): 35 Critical Care Statement: The care of this patient involved high complexity decision making to prevent further life threatening deterioration of the patient 's condition and/or to evaluate & treat vital organ system(s) failure or risk of failure.
[2019-01-25 08:58] LABS: ACTIVATED PTT > 400.0 SECONDS (25.2-36.5)
[2019-01-25 09:01] LABS: INR 3.66 (0.83-1.09)
[2019-01-25] MEDS ORDERED: ceFAZolin SODIUM 1 GM VIAL IVPB ONE (10:35)
--- NOTE | 2019-01-25 10:37 | CON.CARD ---
Consult Consult Specialty:: cardiology Reason for Consultation:: PAD; s/p DVT; hx CAD ?NV - History of Present Illness Chief Complaint: Pt was taken to OR in am; he has returned, is A&Ox3; mild pain in RLE. History of Present Illness: Pt is a 48-year-old black male with past medical history of DVT and right lower extremity arterial occlusion status post angiogram with TPA 08/28, s/p "small NV" ? 2016-->coronary angiogram and stent,obesity, cigarettes, who presents to ER for evaluation of right lower leg pain worsening over the past week. Patient reports he feels his leg is cold which there is any came to the emergency department for evaluation. Patient ran out of rivaroxaban. He denies fevers, chills, shortness of breath, chest pain, abdominal pain, nausea, vomiting. - History Source History Provided By: Patient, Medical Record Limitations to Obtaining History: No Limitations - Past Medical History Cardio/Vascular: Yes: CHF (diastolic), HTN, NV (by hx : ? 2016) Endocrine: Yes: Diabetes Mellitus - Past Surgical History Past Surgical History: Yes: Stent (coronary; peripheral ) - Alcohol/Substance Use Hx Alcohol Use: No - Smoking History Smoking history: Current some day smoker Have you smoked in the past 12 months: Yes Aproximately how many cigarettes per day: 4 - Social History Usual Living Arrangement: With Spouse Place of : [facility] Home Medications - Allergies Allergies/Adverse Reactions: Allergies Allergy/AdvReac Type Severity Reaction Status Date / Time No Known Allergies Allergy Verified 01/23/19 18:22 - Home Medications Home Medications: Ambulatory Orders Aspirin [ASA -] 81 mg PO DAILY #30 tab.chew 09/22/17 Atorvastatin Ca [Lipitor] 40 mg PO HS #30 tablet 09/22/17 Glyburide [Micronase -] 5 mg PO DAILY@0700 #30 tablet 09/22/17 Metoprolol Tartrate [Lopressor -] 25 mg PO BID #30 tablet 09/22/17 Insulin Glargine,Hum.rec.anlog [Lantus Solostar PEN (NF)] 0 units SQ BID Rivaroxaban [Xarelto -] 20 mg PO DAILY 01/24/19 Family Disease History - Family Disease History Family History: Denies Review of Systems - Review of Systems Constitutional: reports: Weakness, Other (RLE pain) Eyes: reports: No Symptoms HENT: reports: No Symptoms Neck: reports: No Symptoms Cardiovascular: reports: No Symptoms Respiratory: reports: No Symptoms Gastrointestinal: reports: No Symptoms Genitourinary: reports: No Symptoms Breasts: reports: No Symptoms Reported Musculoskeletal: reports: Back Pain, Decreased ROM, Extremity Pain, Joint Swelling, Muscle Pain, Muscle Weakness Integumentary: reports: Change in Color Neurological: reports: Weakness Endocrine: reports: No Symptoms Hematology/Lymphatic: reports: No Symptoms Psychiatric: reports: Anxiety - Risk Factors Known Risk Factors: Yes: Age, Gender, Physical Inactivity, Prior NV /Emb Stroke , Race, Smoking, Other (obese) Vital Signs: Vital Signs Temperature 98.8 F 01/25/19 06:00 Pulse Rate 90 01/25/19 08:00 Respiratory Rate 20 01/25/19 09:00 Blood Pressure 129/85 01/25/19 08:00 O2 Sat by Pulse Oximetry (%) 96 01/25/19 09:00 Constitutional: Yes: Anxious, Obese Eyes: Yes: WNL HENT: Yes: WNL Neck: Yes: WNL Respiratory: Yes: WNL Gastrointestinal: Yes: WNL Renal/: Yes: WNL Cardiovascular: Yes: WNL JVD: No Carotid Bruit: No PMI: Non-Displaced Heart Sounds: Yes: S1, S2, S4 Murmur: Yes: Systolic Murmur, Grade 1 Musculoskeletal: Yes: Joint Stiffness, Joint Swelling, Muscle Pain, Muscle Weakness Extremities: Yes: Cold (riight foot) Edema: Yes Edema: RLE: 1+ Peripheral Pulses WNL: No Peripheral Pulses: 1+ Right Dorsalis Pedis Integumentary: Yes: Bruising Neurological: Yes: Alert, Oriented, Weakness Psychiatric: Yes: Alert, Oriented, Other (anxiety) - Other Data Labs, Other Data: CBC, BMP 01/25/19 06:00 01/25/19 06:00 INR, PTT INR 3.66 (0.83-1.09) H 01/25/19 06:00 Fibrinogen > 500.0 mg/dL (238-498) H D 01/25/19 06:00 Abnormal Lab Results 02/02/19 02/02/19 02/02/19 08:50 08:50 08:50 WBC 13.4 H Hgb 10.8 L Hct 32.7 L MCV 78.5 L Plt Count 579 H MPV 6.7 L PT with INR 26.60 H INR 2.24 H Sodium Chloride Carbon Dioxide Anion Gap 7 L Random Glucose 257 H Calcium AST Albumin 02/03/19 05:20 WBC Hgb Hct MCV Plt Count MPV PT with INR INR Sodium 135 L Chloride 95 L Carbon Dioxide 33 H Anion Gap 6 L Random Glucose 261 H Calcium 8.3 L AST 173 H Albumin 2.0 L Imaging - Results EKG: Image Reviewed Other: Image Reviewed Problem List - Problems (1) H/O heart artery stent Assessment/Plan: Hx "small NV" ? 2016-->coronary stent. S/p RLE angioplasty and stent today. F/u lipids and keep LDL < 70 mg/dL. EKG ECHO for LVEF and wall motion, valve status; ECHO 2018 noted mild aortic root dilatation and low-normal LVEF. Code(s): Z95.5 - PRESENCE OF CORONARY ANGIOPLASTY IMPLANT AND GRAFT (2) History of heart attack Assessment/Plan: f/u records of ?2016 "small NV". Will likely require reevaluation of coronary arteries once PAD is resolved. Continue ASA. On metoprolol (though may have to reconsider, given severe PAD). Code(s): I25.2 - OLD MYOCARDIAL INFARCTION (3) Obesity Code(s): E66.9 - OBESITY, UNSPECIFIED (4) Smokes cigarettes Assessment/Plan: Pt to consider nicotine patch. Code(s): F17.210 - NICOTINE DEPENDENCE, CIGARETTES, UNCOMPLICATED (5) Sedentary lifestyle Assessment/Plan: Long-term goal of increasing exercise, once PAD and CAD are evaluated and treated. Code(s): Z91.89 - OTH PERSONAL RISK FACTORS, NOT ELSEWHERE CLASSIFIED (6) Arterial occlusion Code(s): I70.90 - UNSPECIFIED ATHEROSCLEROSIS (7) HLD (hyperlipidemia) Assessment/Plan: Statin and diet; keep LDL < 70 mg/dl. Code(s): E78.5 - HYPERLIPIDEMIA, UNSPECIFIED (8) Diabetes type 2, uncontrolled Assessment/Plan: start ACEI for renal protection, HTN, CAD. Code(s): E11.65 - TYPE 2 DIABETES MELLITUS WITH HYPERGLYCEMIA (9) Hypertension Assessment/Plan: F/u BP and HR serially. Pt is on metoprolol (HTN, CAD); however, given severe PAD, even selective beta rashaad may not be an optimal choice. Would add ACEI or ARB (HTN; DM; CAD). Code(s): I10 - ESSENTIAL (PRIMARY) HYPERTENSION (10) PAD (peripheral artery disease) Assessment/Plan: s/p RLE angioplasty and stent today. Code(s): I73.9 - PERIPHERAL VASCULAR DISEASE, UNSPECIFIED Assessment/Plan CCU time spent 75 minutes.
[2019-01-25] MEDS ORDERED: ceFAZolin SODIUM 1 GM VIAL ONE (10:40)
[2019-01-25] MEDS ORDERED: LIDOCAINE HCL 1%, 10 MG/ML (20ML VIAL) NR ONE (10:48)
--- NOTE | 2019-01-25 11:31 | OP ---
Operative Note - Note: Operative Date: 01/25/19 Pre-Operative Diagnosis: RLE ischemia Operation: RLE angiogram, SFA angioplasty with stent placement, tibial artery angioplasty Post-Operative Diagnosis: Same as Pre-op Surgeon: Morgan Chandler Anesthesia: Fractional Estimated Blood Loss (mls): 30 Operative Report Dictated: Yes
[2019-01-25] MEDS: METOPROLOL TARTRATE 25 MG TABLET (FP) PO SCH ×2 (12:01→22:08)
[2019-01-25] MEDS: ASPIRIN 81 MG CHEWABLE TABLETS PO SCH (12:01)
--- NOTE | 2019-01-25 13:17 | PN ---
Teaching Attending Note Name of Resident: Rolf Le ATTENDING PHYSICIAN STATEMENT I saw and evaluated the patient. I reviewed the resident's note and discussed the case with the resident. I agree with the resident's findings and plan as documented. SUBJECTIVE: Patient seen and examined in the ICU. Needed return to OR due to decreased pulse in the RLE despite intervention and tPA infusing. No CP or SOB. Issue with insurance not covering his DOAC as an outpatient. Intake & Output 01/22/19 01/23/19 01/24/19 01/25/19 23:59 23:59 23:59 23:59 Intake Total 1465 2692.5 Output Total 430 Balance 1035 2692.5 Weight 260 lb 257 lb 5 oz 257 lb Last Vital Signs Temp Pulse Resp BP Pulse Ox 98.1 F 88 20 153/97 96 01/25/19 12:00 01/25/19 13:26 01/25/19 13:26 01/25/19 13:26 01/25/19 09:00 Active Medications Acetaminophen (Ofirmev Injection -) 1,000 mg IVPB Q6H PRN PRN Reason: PAIN LEVEL 7-10 Last Admin: 01/25/19 04:41 Dose: 1,000 mg Aspirin (Asa -) 81 mg PO DAILY [facility] Last Admin: 01/25/19 12:01 Dose: 81 mg Atorvastatin Calcium (Lipitor -) 40 mg PO HS [facility] Last Admin: 01/24/19 21:15 Dose: Not Given Enoxaparin Sodium (Lovenox -) 120 mg SQ Q12H [facility] Fentanyl (Sublimaze Injection -) 50 mcg IVPUSH [id number] PRN PRN Reason: PAIN-PACU ORDER X 4 DOSES ONLY Stop: 01/26/19 11:41 Heparin Sodium/Dextrose (Heparin Infusion -) 25,000 units in 500 mls @ 10 mls/ hr IVPB ASDIR [facility] Last Admin: 01/24/19 09:40 Dose: 10 mls/hr Insulin Aspart (Novolog Vial Sliding Scale -) 1 vial SQ ACHS [facility]; Protocol Last Admin: 01/25/19 11:57 Dose: Not Given Metoprolol Tartrate (Lopressor -) 25 mg PO BID [facility] Last Admin: 01/25/19 12:01 Dose: 25 mg Morphine Sulfate (Morphine Sulfate) 2 mg IVPUSH Q3H PRN PRN Reason: PAIN LEVEL 4-6 Last Admin: 01/25/19 07:37 Dose: 2 mg Ondansetron HCl (Zofran Injection) 4 mg IVPUSH Q6H PRN PRN Reason: NAUSEA AND/OR VOMITING Promethazine HCl (Phenergan Injection -) 12.5 mg IVPB Q6H PRN PRN Reason: NAUSEA-FOR RESCUE AFTER 15 MIN GENERAL: awake, alert, and fully oriented HEENT: NC/AT, EOMI, BARBRA, sclera anicteric, MMM NECK: No JVD LUNGS: CTA bilaterally, no wheezes, no crackles, no accessory muscle use. RA 100 % SpO2 HEART: RRR, S1, S2 without murmur ABDOMEN: Soft, NT/ND, normoactive bowel sounds, no guarding EXTREMITIES: 1+ DP and PT pulses. NEUROLOGICAL: Non-focal PSYCH: Normal mood, normal affect. SKIN: Warm, dry, no rashes noted Laboratory Results 01/24/19 01/24/19 01/24/19 10:00 14:09 15:05 WBC RBC Hgb Hct MCV MCH MCHC RDW Plt Count MPV PT with INR 12.60 INR 1.07 PTT (Actin FS) 22.0 L Fibrinogen Sodium Potassium Chloride Carbon Dioxide Anion Gap BUN Creatinine Est GFR (CKD-EPI)AfAm Est GFR (CKD-EPI)NonAf POC Glucometer 97 Random Glucose Calcium Magnesium Blood Type O POSITIVE Antibody Screen Negative 01/24/19 01/24/19 01/24/19 15:05 15:05 15:05 WBC 8.3 RBC 4.41 Hgb 11.6 L Hct 34.8 L MCV 79.0 L MCH 26.3 MCHC 33.3 RDW 14.1 Plt Count 364 MPV 7.7 PT with INR INR PTT (Actin FS) Fibrinogen > 500.0 H Sodium 141 Potassium 3.6 Chloride 110 H Carbon Dioxide 22 Anion Gap 8 BUN 12.1 Creatinine 1.0 Est GFR (CKD-EPI)AfAm 103.42 Est GFR (CKD-EPI)NonAf 89.23 POC Glucometer Random Glucose 97 Calcium 8.3 L Magnesium Blood Type Antibody Screen 01/24/19 01/24/19 01/24/19 16:55 21:00 21:00 WBC 9.1 RBC 4.42 Hgb 11.7 Hct 35.3 L MCV 79.9 L MCH 26.4 MCHC 33.1 RDW 14.4 Plt Count 353 MPV 7.4 L PT with INR 13.10 H INR 1.11 H PTT (Actin FS) 25.6 Fibrinogen Sodium Potassium Chloride Carbon Dioxide Anion Gap BUN Creatinine Est GFR (CKD-EPI)AfAm Est GFR (CKD-EPI)NonAf POC Glucometer 93 Random Glucose Calcium Magnesium Blood Type Antibody Screen 01/24/19 01/24/19 01/24/19 21:00 21:00 21:31 WBC RBC Hgb Hct MCV MCH MCHC RDW Plt Count MPV PT with INR INR PTT (Actin FS) Fibrinogen 212.0 L D Sodium 142 Potassium 3.7 Chloride 110 H Carbon Dioxide 22 Anion Gap 10 BUN 11.5 Creatinine 0.9 Est GFR (CKD-EPI)AfAm 117.47 Est GFR (CKD-EPI)NonAf 101.35 POC Glucometer 95 Random Glucose 101 Calcium 8.1 L Magnesium 2.0 Blood Type Antibody Screen 01/25/19 01/25/19 01/25/19 00:40 03:00 03:00 WBC RBC Hgb Hct MCV MCH MCHC RDW Plt Count MPV PT with INR INR PTT (Actin FS) 26.1 Fibrinogen 236.0 L Sodium 142 Potassium 3.5 Chloride 113 H Carbon Dioxide 20 L Anion Gap 9 BUN 9.6 Creatinine 0.8 Est GFR (CKD-EPI)AfAm 122.43 Est GFR (CKD-EPI)NonAf 105.63 POC Glucometer Random Glucose 99 Calcium 7.6 L Magnesium Blood Type Antibody Screen 01/25/19 01/25/19 01/25/19 03:00 03:00 03:00 WBC 8.6 RBC 4.50 Hgb 11.8 Hct 35.8 MCV 79.7 L MCH 26.2 MCHC 32.9 RDW 14.2 Plt Count 334 MPV 7.3 L PT with INR 13.20 H INR 1.12 H PTT (Actin FS) Fibrinogen 388.0 D Sodium Potassium Chloride Carbon Dioxide Anion Gap BUN Creatinine Est GFR (CKD-EPI)AfAm Est GFR (CKD-EPI)NonAf POC Glucometer Random Glucose Calcium Magnesium Blood Type Antibody Screen 01/25/19 01/25/19 01/25/19 06:00 06:00 06:14 WBC 9.4 RBC 4.38 Hgb 11.5 L Hct 35.1 L MCV 80.1 MCH 26.3 MCHC 32.8 RDW 14.1 Plt Count 324 MPV 7.3 L PT with INR INR PTT (Actin FS) Fibrinogen Sodium 141 Potassium 3.5 Chloride 110 H Carbon Dioxide 18 L Anion Gap 13 BUN 10.1 Creatinine 0.9 Est GFR (CKD-EPI)AfAm 116.65 Est GFR (CKD-EPI)NonAf 100.64 POC Glucometer 126 Random Glucose 138 H Calcium 8.0 L Magnesium Blood Type Antibody Screen Active Medications Generic Name Dose Route Start Last Admin Trade Name Freq PRN Reason Stop Dose Admin Acetaminophen 1,000 mg 01/24/19 12:23 01/25/19 04:41 Ofirmev Injection - IVPB 1,000 mg Q6H PRN Administration PAIN LEVEL 7-10 Aspirin 81 mg 01/24/19 10:00 01/24/19 12:29 Asa - PO Not Given DAILY MARYJO Atorvastatin Calcium 40 mg 01/24/19 22:00 01/24/19 21:15 Lipitor - PO Not Given HS [facility] Heparin Sodium/Dextrose 25,000 units in 500 mls @ 10 mls/hr 01/24/19 13:45 09:40 Heparin Infusion - IVPB 10 mls/hr ASDIR MARYJO Administration Sodium Chloride 1,000 mls @ 50 mls/hr 01/24/19 16:45 01/24/19 12:00 1/2 Normal Saline IV 50 mls/hr ASDIR MARYJO Administration Insulin Aspart 1 vial 01/24/19 07:00 01/25/19 06:34 Novolog Vial Sliding Scale - SQ Not Given ACHS [facility] Protocol Metoprolol Tartrate 25 mg 01/24/19 10:00 01/24/19 21:15 Lopressor - PO Not Given BID [facility] Morphine Sulfate 2 mg 01/25/19 07:12 01/25/19 07:37 Morphine Sulfate IVPUSH 2 mg Q3H PRN Administration PAIN LEVEL 4-6 Ondansetron HCl 4 mg 01/24/19 09:40 Zofran Injection IVPUSH Q6H PRN NAUSEA AND/OR VOMITING Promethazine HCl 12.5 mg 01/24/19 09:40 Phenergan Injection - IVPB Q6H PRN NAUSEA-FOR RESCUE AFTER 15 MIN ASSESSMENT/PLAN: Right occlusive popliteal artery thrombus Right posterior tibial artery thrombus CAD s/p PCI stenting HTN DM Urinary retention / hematuria Lovenox with likely bridge with coumadin. Continuing care to assess for DOAC coverage Follow doppler pulses Incentive Spirometry O2 as needed Urology evaluation Requires ICU monitoring for frequent doppler checks Dr Galeano Critical care time spent in reviewing chart, evaluating patient and formulating plan - 36 minutes.
--- NOTE | 2019-01-25 14:56 | CON.GU ---
Consult Consult Specialty:: Referred by:: Ramesh Reason for Consultation:: blood per urethra - History of Present Illness Chief Complaint: leg pain History of Present Illness: 49 yo m adm w right lower ext pain at work yesterday. Leg felt cool to touch and pt was having pain . SAme feeling as in 2018 with same problem. Had traumatic attempted pérez cath insertion w blood per urethra and cons req. Pt voiding adequately. - History Source History Provided By: Patient, Medical Record - Past Medical History Cardio/Vascular: Yes: HTN Endocrine: Yes: Diabetes Mellitus - Alcohol/Substance Use Hx Alcohol Use: No - Smoking History Smoking history: Never smoked Have you smoked in the past 12 months: Yes Aproximately how many cigarettes per day: 4 Home Medications - Allergies Allergies/Adverse Reactions: Allergies Allergy/AdvReac Type Severity Reaction Status Date / Time No Known Allergies Allergy Verified 01/23/19 18:22 - Home Medications Home Medications: Ambulatory Orders Aspirin [ASA -] 81 mg PO DAILY #30 tab.chew 09/22/17 Atorvastatin Ca [Lipitor] 40 mg PO HS #30 tablet 09/22/17 Glyburide [Micronase -] 5 mg PO DAILY@0700 #30 tablet 09/22/17 Metoprolol Tartrate [Lopressor -] 25 mg PO BID #30 tablet 09/22/17 Insulin Glargine,Hum.rec.anlog [Lantus Solostar PEN (NF)] 0 units SQ BID Rivaroxaban [Xarelto -] 20 mg PO DAILY 01/24/19 Physical Exam- Vital Signs: Vital Signs Temperature 98.1 F 01/25/19 12:00 Pulse Rate 88 01/25/19 13:26 Respiratory Rate 20 01/25/19 13:26 Blood Pressure 153/97 01/25/19 13:26 O2 Sat by Pulse Oximetry (%) 96 01/25/19 09:00 Renal/: No: Bladder Distention Pelvis: Yes: Bladder Non Palpable Labs: CBC, BMP 01/25/19 06:00 01/25/19 06:00 Problem List - Problems (1) Hematuria Assessment/Plan: should resolve spontaeously, recall if pérez cath needed. Code(s): R31.9 - HEMATURIA, UNSPECIFIED (2) Arterial occlusion Code(s): I70.90 - UNSPECIFIED ATHEROSCLEROSIS (3) CAD (coronary artery disease) Code(s): I25.10 - ATHSCL HEART DISEASE OF [place] CORONARY ARTERY W/O ANG PCTRS (4) HLD (hyperlipidemia) Code(s): E78.5 - HYPERLIPIDEMIA, UNSPECIFIED (5) Right leg pain Code(s): M79.604 - PAIN IN RIGHT LEG (6) Diabetes type 2, uncontrolled Code(s): E11.65 - TYPE 2 DIABETES MELLITUS WITH HYPERGLYCEMIA
[2019-01-25] MEDS: ENOXAPARIN NA (PORCINE) 120 MG/0.8 ML DISP.SYRIN SQ SCH (15:39)
--- NOTE | 2019-01-25 21:43 | PN ---
Progress Note, Physician History of Present Illness: Pt's Rt foot became cooler w/ increased pain and pt brought back to OR for revascularization - Current Medication List Current Medications: Active Medications Acetaminophen (Ofirmev Injection -) 1,000 mg IVPB Q6H PRN PRN Reason: PAIN LEVEL 7-10 Last Admin: 01/25/19 04:41 Dose: 1,000 mg Aspirin (Asa -) 81 mg PO DAILY [facility] Last Admin: 01/25/19 12:01 Dose: 81 mg Atorvastatin Calcium (Lipitor -) 40 mg PO HS [facility] Last Admin: 01/24/19 21:15 Dose: Not Given Enoxaparin Sodium (Lovenox -) 120 mg SQ Q12H [facility] Last Admin: 01/25/19 15:39 Dose: 120 mg Fentanyl (Sublimaze Injection -) 50 mcg IVPUSH [id number] PRN PRN Reason: PAIN-PACU ORDER X 4 DOSES ONLY Stop: 01/26/19 11:41 Insulin Aspart (Novolog Vial Sliding Scale -) 1 vial SQ [facility]; Protocol Last Admin: 01/25/19 17:45 Dose: 2 units Metoprolol Tartrate (Lopressor -) 25 mg PO BID [facility] Last Admin: 01/25/19 12:01 Dose: 25 mg Morphine Sulfate (Morphine Sulfate) 2 mg IVPUSH Q3H PRN PRN Reason: PAIN LEVEL 4-6 Last Admin: 01/25/19 07:37 Dose: 2 mg Ondansetron HCl (Zofran Injection) 4 mg IVPUSH Q6H PRN PRN Reason: NAUSEA AND/OR VOMITING Promethazine HCl (Phenergan Injection -) 12.5 mg IVPB Q6H PRN PRN Reason: NAUSEA-FOR RESCUE AFTER 15 MIN - Objective Vital Signs: Vital Signs Temperature 98.0 F 01/25/19 18:00 Pulse Rate 93 H 01/25/19 20:00 Respiratory Rate 20 01/25/19 20:18 Blood Pressure 146/95 01/25/19 20:00 O2 Sat by Pulse Oximetry (%) 98 01/25/19 20:18 Neck: Yes: WNL, Supple, Trachea Midline Cardiovascular: Yes: WNL, Regular Rate and Rhythm Respiratory: Yes: WNL, Regular, CTA Bilaterally Gastrointestinal: Yes: WNL, Normal Bowel Sounds, Soft, Abdomen, Obese Labs: CBC, BMP 01/25/19 06:00 01/25/19 06:00 INR, PTT INR 3.66 (0.83-1.09) H 01/25/19 06:00 Fibrinogen > 500.0 mg/dL (238-498) H D 01/25/19 06:00 Problem List - Problems (1) Arterial occlusion Code(s): I70.90 - UNSPECIFIED ATHEROSCLEROSIS (2) Diabetes type 2, uncontrolled Code(s): E11.65 - TYPE 2 DIABETES MELLITUS WITH HYPERGLYCEMIA (3) Hypertension Code(s): I10 - ESSENTIAL (PRIMARY) HYPERTENSION (4) CAD (coronary artery disease) Code(s): I25.10 - ATHSCL HEART DISEASE OF [place] CORONARY ARTERY W/O ANG PCTRS (5) HLD (hyperlipidemia) Code(s): E78.5 - HYPERLIPIDEMIA, UNSPECIFIED
[2019-01-25] MEDS: ATORVASTATIN CA 40 MG TABLET (FP) PO SCH (22:08)
[2019-01-26] MEDS: MORPHINE SULFATE 2 MG/ML VIAL IVPUSH PRN ×2 (04:04→22:13)
[2019-01-26] MEDS: ENOXAPARIN NA (PORCINE) 120 MG/0.8 ML DISP.SYRIN SQ SCH ×2 (04:05→15:27)
--- NOTE | 2019-01-26 07:12 | PN ---
Physical Exam: SUBJECTIVE: No acute events overnight. Pt's pain improving in R foot compared to yesterday. Pt's foot remains warmer to touch. OBJECTIVE: Vital Signs Period Temp Pulse Resp BP Sys/Miller Pulse Ox Last 24 Hr 98.0 F-98.3 F 88-99 20-26 127-156/79-97 96-98 GENERAL: NAD, awake, alert, and fully oriented HEENT: NC/AT, BARBRA, MMM LUNGS: CTA bilaterally, no wheezes, no crackles, no accessory muscle use. HEART: RRR, S1, S2 without murmur ABDOMEN: Soft, NT/ND, normoactive bowel sounds, no guarding EXTREMITIES: 1+ L DP and PT pulse, weak R PT pulse palpated and doppler +, warm leg, improved warmth of foot but cool, no edema. PSYCH: Normal mood, normal affect. SKIN: Warm, dry, no rashes or lesions noted Laboratory Results 01/25/19 01/25/19 01/25/19 06:00 06:00 06:00 WBC 9.4 RBC 4.38 Hgb 11.5 L Hct 35.1 L MCV 80.1 MCH 26.3 MCHC 32.8 RDW 14.1 Plt Count 324 MPV 7.3 L PT with INR 43.70 H INR 3.66 H PTT (Actin FS) > 400.0 H Fibrinogen > 500.0 H D Sodium Potassium Chloride Carbon Dioxide Anion Gap BUN Creatinine Est GFR (CKD-EPI)AfAm Est GFR (CKD-EPI)NonAf POC Glucometer Random Glucose Calcium 01/25/19 01/25/19 01/25/19 06:00 11:46 17:39 WBC RBC Hgb Hct MCV MCH MCHC RDW Plt Count MPV PT with INR INR PTT (Actin FS) Fibrinogen Sodium 141 Potassium 3.5 Chloride 110 H Carbon Dioxide 18 L Anion Gap 13 BUN 10.1 Creatinine 0.9 Est GFR (CKD-EPI)AfAm 116.65 Est GFR (CKD-EPI)NonAf 100.64 POC Glucometer 108 176 Random Glucose 138 H Calcium 8.0 L 01/25/19 21:26 WBC RBC Hgb Hct MCV MCH MCHC RDW Plt Count MPV PT with INR INR PTT (Actin FS) Fibrinogen Sodium Potassium Chloride Carbon Dioxide Anion Gap BUN Creatinine Est GFR (CKD-EPI)AfAm Est GFR (CKD-EPI)NonAf POC Glucometer 196 Random Glucose Calcium Active Medications Generic Name Dose Route Start Last Admin Trade Name Freq PRN Reason Stop Dose Admin Acetaminophen 1,000 mg 01/24/19 12:23 01/25/19 04:41 Ofirmev Injection - IVPB 1,000 mg Q6H PRN Administration PAIN LEVEL 7-10 Aspirin 81 mg 01/24/19 10:00 01/25/19 12:01 Asa - PO 81 mg DAILY MARYJO Administration Atorvastatin Calcium 40 mg 01/24/19 22:00 01/25/19 22:08 Lipitor - PO 40 mg HS MARYJO Administration Enoxaparin Sodium 120 mg 01/25/19 15:30 01/26/19 04:05 Lovenox - SQ 120 mg Q12H MARYJO Administration Fentanyl 50 mcg 01/25/19 11:42 Sublimaze Injection - IVPUSH 01/26/19 11:41 [id number] PRN PAIN-PACU ORDER X 4 DOSES ONLY Insulin Aspart 1 vial 01/24/19 07:00 01/25/19 22:08 Novolog Vial Sliding Scale - SQ 2 units ACHS MARYJO Administration Protocol Metoprolol Tartrate 25 mg 01/24/19 10:00 01/25/19 22:08 Lopressor - PO 25 mg BID MARYJO Administration Morphine Sulfate 2 mg 01/25/19 07:12 01/26/19 04:04 Morphine Sulfate IVPUSH 2 mg Q3H PRN Administration PAIN LEVEL 4-6 Ondansetron HCl 4 mg 01/24/19 09:40 Zofran Injection IVPUSH Q6H PRN NAUSEA AND/OR VOMITING Promethazine HCl 12.5 mg 01/24/19 09:40 Phenergan Injection - IVPB Q6H PRN NAUSEA-FOR RESCUE AFTER 15 MIN ASSESSMENT/PLAN: R occlusive popliteal artery thrombus R posterior tibial artery thrombus CAD s/p PCI stenting HTN T2DM --POD 1 of revascularization of R foot s/p TPA directed catheter --R PT pulse able to be heard with doppler --Vascular on board and appreciated consultation --Changed Morphine 2mg to q6h from q3h PRN pain 6-10 --Continue other home medications: ASA 81mg qdaily for CAD/stenting hx Lipitor 40mg HS PO Lopressor 25mg BID PO --BGM ACHS and ISS for glycemic control --If long-term NOAC plan is still being resolved will start Coumadin 7.5mg to bridge from Lovenox FEN: Fluids: None; tolerating PO Electrolyte abnormalities: Phlebotomy unable to get labs today Nutrition: Sodium, diabetic diet PPX DVT - Lovenox 120 BID GI - Not indicated currently Dispo: Can transfer to M/S Case discussed with Dr. Galeano and Dr. Ramesh Le, DO - IM PGY-3 Visit type - Emergency Visit Emergency Visit: Yes ED Registration Date: 01/24/19 Care time: The patient presented to the Emergency Department on the above date and was hospitalized for further evaluation of their emergent condition. - New Patient This patient is new to me today: No - Critical Care Critical Care patient: No
[2019-01-26 08:53] LABS: HEMOGLOBIN 12.1 GM/dL (11.7-16.9); MCH 26.6 pg (25.7-33.7); MCHC 33.5 g/dl (32.0-35.9); MEAN CELL VOLUME 79.5 fl (80-96); MEAN PLT VOLUME 7.2 fl (7.5-11.1); PLATELET COUNT 326 K/MM3 (134-434); RBC 4.53 M/mm3 (4.00-5.60); RDW 14.2 % (11.9-15.9); WHITE BLOOD COUNT 9.7 K/mm3 (4.0-10.0)
[2019-01-26 09:03] LABS: INR 1.26 (0.83-1.09); PROTHROMBIN TIME (PATIENT) 14.9 SEC (9.7-13.0)
[2019-01-26] MEDS: INSULIN SLIDING SCALE (NOVOLOG) 1 VIAL SQ SCH ×4 (09:14→21:16)
[2019-01-26] MEDS: METOPROLOL TARTRATE 25 MG TABLET (FP) PO SCH ×2 (09:19→21:13)
[2019-01-26] MEDS: ASPIRIN 81 MG CHEWABLE TABLETS PO SCH (09:19)
[2019-01-26] MEDS ORDERED: LISINOPRIL 5 MG TABLET (FP) PO SCH (10:00)
[2019-01-26] MEDS ORDERED: MORPHINE SULFATE 2 MG/ML VIAL IVPUSH PRN (10:57)
--- NOTE | 2019-01-26 11:00 | ECHO ---
Name: MAXI HODGE Exam:Adult Echocardiogram Study Date: 01/26/2019 07:29 AM Age: 49 yrs Reason For Study: aortic root dilation Height: 68 in Weight: 257 lb BSA: 2.3 m2 MMode/2D Measurements & Calculations IVSd: 1.2 cm Ao root diam: 3.0 cm LVIDd: 4.5 cm LA dimension: 3.0 cm LVIDs: 3.3 cm LVPWd: 1.3 cm EDV(Teich): 93.9 ml LVOT diam: 2.0 cm ESV(Teich): 45.4 ml LAV (MOD-bp): 38.7 ml Doppler Measurements & Calculations MV E max rashawn: 108.0 cm/sec Ao V2 max: 126.0 cm/sec MV A max rashawn: 92.2 cm/sec Ao max P.4 mmHg MV E/A: 1.2 MV dec time: 0.10 sec REGGIE(V,D): 2.3 cm2 LV V1 max P.5 mmHg PA V2 max: 99.1 cm/sec LV V1 max: 93.1 cm/sec PA max P.9 mmHg Med Peak E' Rashawn: 6.2 cm/sec Med E/e': 17.4 Lat Peak E' Rashawn: 8.9 cm/sec Lat E/e': 12.1 Procedure The study was technically difficult with many images being suboptimal in quality. Left Ventricle Left ventricular systolic function is grossly normal. Ejection Fraction = 50-55%. Regional wall motio n abnormalities cannot be excluded due to limited visualization. Right Ventricle The right ventricle is grossly normal size. The right ventricular systolic function is grossly normal . Atria Normal left and right atrial size and function. Mitral Valve The mitral valve is normal in structure and function. There is no mitral valve stenosis. There is no mitral regurgitation noted. Tricuspid Valve The tricuspid valve is normal in structure and function. There is trace tricuspid regurgitation. Aortic Valve The aortic valve opens well. No hemodynamically significant valvular aortic stenosis. Pulmonic Valve The pulmonic valve is not well seen, but is grossly normal. There is no pulmonic valvular stenosis. Great Vessels The aortic root and ascending aorta are at the upper limit of normal size, both measuring 3.6cm. Pericardium/Pleura There is no pericardial effusion. Interpretation Summary The study was technically difficult with many images being suboptimal in quality. Regional wall motion abnormalities cannot be excluded due to limited visualization. Left ventricular systolic function is grossly normal. Ejection Fraction = 50-55%. The aortic root and ascending aorta are at the upper limit of normal size, both measuring 3.6cm. There is no pericardial effusion. MD Arias *Collette 01/26/2019 10:59 AM
--- NOTE | 2019-01-26 11:34 | EKG ---
Test Reason : Blood Pressure : / mmHG Vent. Rate : 093 BPM Atrial Rate : 093 BPM P-R Int : 154 ms QRS Dur : 102 ms QT Int : 352 ms P-R-T Axes : 050 -60 003 degrees QTc Int : 437 ms NORMAL SINUS RHYTHM LEFT ANTERIOR FASCICULAR BLOCK ANTEROLATERAL INFARCT (CITED ON OR BEFORE 10-AUG-2017) ABNORMAL ECG WHEN COMPARED WITH ECG OF 23-JAN-2019 19:52, NO SIGNIFICANT CHANGE WAS FOUND Confirmed by FLAKO JOHNSON MD ([id number]) on 01/26/2019 11:33:38 AM Referred By: MATEUSZ HANNAH Confirmed By:FLAKO JOHNSON MD
--- NOTE | 2019-01-26 11:42 | PN ---
Progress Note (short form) - Note Progress Note: PT seen earlier this am and having complaints of some LLE pain. States that he is voiding and having a little blood with urination. Urine is yellow. Vital Signs Period Temp Pulse Resp BP Sys/Miller Pulse Ox Last 24 Hr 98.0 F-98.5 F 88-100 17-26 127-146/77-95 98-100 GEN: Resting comfortably in bed ABD: soft, non-distended, non-tender. Right foot: cooler to touch in comparison to the right. 3/5 dorsi/plantar felxion. PT pulse with doppler. Left groin: c/d/i puncture site. CBC, BMP 01/26/19 08:16 01/25/19 06:00 Laboratory Tests 09/19/17 09/20/17 01/26/19 19:50 08:52 08:16 INR 1.26 H Random Glucose 328 H* D 335 H* A/p: RLE ischemia s/p aortogram and infusion of thrombolysis Pt now on lovenox and with coumadin dose to start tonight Diet as tolerated May be oob to chair D/w Dr. Chandler
--- NOTE | 2019-01-26 12:05 | PN ---
Teaching Attending Note Name of Resident: Rolf Le ATTENDING PHYSICIAN STATEMENT I saw and evaluated the patient. I reviewed the resident's note and discussed the case with the resident. I agree with the resident's findings and plan as documented. SUBJECTIVE: Patient seen and examined in the ICU. Awake and alert. Improved from yesterday. Minimal discomfort of the RLE. No CP or SOB. Issue with insurance not covering his DOAC as an outpatient. Intake & Output 01/23/19 01/24/19 01/25/19 01/26/19 23:59 23:59 23:59 23:59 Intake Total 1465 3292.5 100 Output Total 430 3300 600 Balance 1035 -7.5 -500 Weight 260 lb 257 lb 5 oz 257 lb Last Vital Signs Temp Pulse Resp BP Pulse Ox 98.3 F 92 H 18 135/82 100 01/26/19 09:28 01/26/19 11:33 01/26/19 11:33 01/26/19 10:00 01/26/19 07:58 Active Medications Acetaminophen (Ofirmev Injection -) 1,000 mg IVPB Q6H PRN PRN Reason: PAIN LEVEL 7-10 Last Admin: 01/25/19 04:41 Dose: 1,000 mg Aspirin (Asa -) 81 mg PO DAILY [facility] Last Admin: 01/26/19 09:19 Dose: 81 mg Atorvastatin Calcium (Lipitor -) 40 mg PO HS [facility] Last Admin: 01/25/19 22:08 Dose: 40 mg Enoxaparin Sodium (Lovenox -) 120 mg SQ Q12H [facility] Last Admin: 01/26/19 04:05 Dose: 120 mg Insulin Aspart (Novolog Vial Sliding Scale -) 1 vial SQ [facility]; Protocol Last Admin: 01/26/19 11:38 Dose: 4 units Lisinopril (Prinivil) 2.5 mg PO DAILY [facility] Last Admin: 01/26/19 09:19 Dose: 2.5 mg Metoprolol Tartrate (Lopressor -) 25 mg PO BID [facility] Last Admin: 01/26/19 09:19 Dose: 25 mg Morphine Sulfate (Morphine Sulfate) 2 mg IVPUSH Q6H PRN PRN Reason: PAIN LEVEL 4-6 Ondansetron HCl (Zofran Injection) 4 mg IVPUSH Q6H PRN PRN Reason: NAUSEA AND/OR VOMITING Promethazine HCl (Phenergan Injection -) 12.5 mg IVPB Q6H PRN PRN Reason: NAUSEA-FOR RESCUE AFTER 15 MIN GENERAL: awake, alert, and fully oriented HEENT: NC/AT, EOMI, BARBRA, sclera anicteric, MMM NECK: No JVD LUNGS: CTA bilaterally, no wheezes, no crackles, no accessory muscle use. RA 100 % SpO2 HEART: RRR, S1, S2 without murmur ABDOMEN: Soft, NT/ND, normoactive bowel sounds, no guarding EXTREMITIES: 1+ DP and PT pulses. NEUROLOGICAL: Non-focal PSYCH: Normal mood, normal affect. SKIN: Warm, dry, no rashes noted Laboratory Results - last 24 hr 01/25/19 01/25/19 01/26/19 17:39 21:26 06:43 WBC RBC Hgb Hct MCV MCH MCHC RDW Plt Count MPV PT with INR INR POC Glucometer 176 196 151 Triglycerides Cholesterol Total LDL Cholesterol HDL Cholesterol TSH 01/26/19 01/26/19 01/26/19 08:16 08:16 08:16 WBC 9.7 RBC 4.53 Hgb 12.1 Hct 36.0 MCV 79.5 L MCH 26.6 MCHC 33.5 RDW 14.2 Plt Count 326 MPV 7.2 L PT with INR 14.90 H INR 1.26 H POC Glucometer Triglycerides 95 Cholesterol 143 Total LDL Cholesterol 89 HDL Cholesterol 39 L TSH 0.60 01/26/19 11:37 WBC RBC Hgb Hct MCV MCH MCHC RDW Plt Count MPV PT with INR INR POC Glucometer 201 Triglycerides Cholesterol Total LDL Cholesterol HDL Cholesterol TSH ASSESSMENT/PLAN: Right occlusive popliteal artery thrombus Right posterior tibial artery thrombus CAD s/p PCI stenting HTN DM Urinary retention / hematuria Lovenox with likely bridge with coumadin. Continuing care to assess for DOAC coverage Follow doppler pulses Incentive Spirometry O2 as needed Floor Dr Galeano
[2019-01-26] MEDS: ACETAMINOPHEN 1000 MG/100 ML VIAL (NON FORMULARY) IVPB PRN (13:29)
--- NOTE | 2019-01-26 13:50 | PN ---
Progress Note (short form) - Note Progress Note: Anesthesia POD#1 S/P Angiogram/Angioplasty under MAC VSS,no N/V,no pain. Doing well Roxana Christine MD.
[2019-01-26] MEDS ORDERED: WARFARIN NA 7.5 MG TABLET (FP) PO ONE (18:00)
[2019-01-26] MEDS ORDERED: ONDANSETRON 4 MG/2 ML VIAL IVPUSH PRN (19:58)
[2019-01-26] MEDS ORDERED: PROMETHAZINE HCL 25 MG/1 ML VIAL IVPB PRN (19:58)
[2019-01-26] MEDS: ATORVASTATIN CA 40 MG TABLET (FP) PO SCH (21:13)
--- NOTE | 2019-01-26 22:40 | PN ---
Progress Note, Physician - Current Medication List Current Medications: Active Medications Aspirin (Asa -) 81 mg PO DAILY [facility] Atorvastatin Calcium (Lipitor -) 40 mg PO HS [facility] Last Admin: 01/26/19 21:13 Dose: 40 mg Enoxaparin Sodium (Lovenox -) 120 mg SQ Q12H [facility] Insulin Aspart (Novolog Vial Sliding Scale -) 1 vial SQ ACHS [facility]; Protocol Last Admin: 01/26/19 21:16 Dose: 4 units Lisinopril (Prinivil) 2.5 mg PO DAILY [facility] Metoprolol Tartrate (Lopressor -) 25 mg PO BID [facility] Last Admin: 01/26/19 21:13 Dose: 25 mg Morphine Sulfate (Morphine Sulfate) 2 mg IVPUSH Q6H PRN PRN Reason: PAIN LEVEL 4-6 Last Admin: 01/26/19 22:13 Dose: 2 mg Ondansetron HCl (Zofran Injection) 4 mg IVPUSH Q6H PRN PRN Reason: NAUSEA AND/OR VOMITING Promethazine HCl (Phenergan Injection -) 12.5 mg IVPB Q6H PRN PRN Reason: NAUSEA-FOR RESCUE AFTER 15 MIN - Objective Vital Signs: Vital Signs Temperature 98.6 F 01/26/19 20:00 Pulse Rate 102 H 01/26/19 20:00 Respiratory Rate 18 01/26/19 20:00 Blood Pressure 139/74 01/26/19 20:00 O2 Sat by Pulse Oximetry (%) 100 01/26/19 07:58 Labs: CBC, BMP 01/26/19 08:16 01/25/19 06:00 INR, PTT INR 1.26 (0.83-1.09) H 01/26/19 08:16 Fibrinogen > 500.0 mg/dL (238-498) H D 01/25/19 06:00 Problem List - Problems (1) Arterial occlusion Code(s): I70.90 - UNSPECIFIED ATHEROSCLEROSIS (2) Diabetes type 2, uncontrolled Code(s): E11.65 - TYPE 2 DIABETES MELLITUS WITH HYPERGLYCEMIA (3) Hypertension Code(s): I10 - ESSENTIAL (PRIMARY) HYPERTENSION (4) CAD (coronary artery disease) Code(s): I25.10 - ATHSCL HEART DISEASE OF [place] CORONARY ARTERY W/O ANG PCTRS (5) HLD (hyperlipidemia) Code(s): E78.5 - HYPERLIPIDEMIA, UNSPECIFIED
[2019-01-27] MEDS: ACETAMINOPHEN 325 MG TABLET (FP) PO PRN ×3 (02:22→21:23)
[2019-01-27] MEDS ORDERED: ENOXAPARIN NA (PORCINE) 120 MG/0.8 ML DISP.SYRIN SQ SCH (03:30)
[2019-01-27] MEDS ORDERED: PT OWN MED DRAWER 7, Y5N ONE (03:33)
[2019-01-27] MEDS ORDERED: ENOXAPARIN NA (PORCINE) 80 MG/0.8 ML DISP.SYRIN SQ ONE ×2 (03:44→13:17)
[2019-01-27] MEDS ORDERED: ENOXAPARIN NA (PORCINE) 40 MG/0.4 ML DISP.SYRIN SQ ONE ×2 (03:44→13:17)
[2019-01-27] MEDS ORDERED: ENOXAPARIN SQ SCH (03:45)
[2019-01-27] MEDS: INSULIN SLIDING SCALE (NOVOLOG) 1 VIAL SQ SCH ×4 (06:22→21:21)
[2019-01-27] MEDS: ASPIRIN 81 MG CHEWABLE TABLETS PO SCH (09:04)
[2019-01-27] MEDS: METOPROLOL TARTRATE 25 MG TABLET (FP) PO SCH ×2 (09:05→21:22)
[2019-01-27] MEDS: LISINOPRIL 5 MG TABLET (FP) PO SCH (09:05)
[2019-01-27 10:12] LABS: BASO % 0.6 % (0-2.0); HEMATOCRIT 37.4 % (35.4-49); HEMOGLOBIN 12.4 GM/dL (11.7-16.9); LYMPH % 20.1 % (8-40); MCH 26.1 pg (25.7-33.7); MCHC 33.1 g/dl (32.0-35.9); MEAN CELL VOLUME 78.8 fl (80-96); MEAN PLT VOLUME 7.3 fl (7.5-11.1); MONO % 11.2 % (3.8-10.2); NEUT % 66.1 % (42.8-82.8); PLATELET COUNT 364 K/MM3 (134-434); RBC 4.75 M/mm3 (4.00-5.60); RDW 14.2 % (11.9-15.9)
[2019-01-27 10:29] LABS: ALBUMIN 2.6 g/dl (3.4-5.0); BILIRUBIN,TOTAL 0.3 mg/dL (0.2-1); BLOOD UREA NITROGEN 11.6 mg/dL (7-18); CALCIUM 8.4 mg/dL (8.5-10.1); POTASSIUM 3.7 mmol/L (3.5-5.1); TOT PROT 7.3 g/dl (6.4-8.2)
[2019-01-27 11:08] LABS: INR 1.27 (0.83-1.09)
[2019-01-27] MEDS ORDERED: INSULIN (NOVOLOG) ASPART 100 UNITS/ML 10ML VIAL ONE ×2 (11:34→21:14)
[2019-01-27] MEDS ORDERED: MORPHINE SULFATE 2 MG/ML VIAL IVPUSH PRN (14:42)
[2019-01-27] MEDS ORDERED: WARFARIN NA 5 MG TABLET (UD) PO ONE (15:30)
[2019-01-27] MEDS: MORPHINE SULFATE 2 MG/ML VIAL IVPUSH PRN (15:40)
[2019-01-27] MEDS: ENOXAPARIN SQ SCH (15:45)
[2019-01-27] MEDS ORDERED: WARFARIN NA 7.5 MG TABLET (FP) PO ONE (18:00)
--- NOTE | 2019-01-27 21:08 | PN ---
Progress Note, Physician - Current Medication List Current Medications: Active Medications Acetaminophen (Tylenol -) 650 mg PO Q6H PRN PRN Reason: FEVER Last Admin: 01/27/19 11:37 Dose: 650 mg Aspirin (Asa -) 81 mg PO DAILY [facility] Last Admin: 01/27/19 09:04 Dose: 81 mg Atorvastatin Calcium (Lipitor -) 40 mg PO HS [facility] Last Admin: 01/26/19 21:13 Dose: 40 mg Enoxaparin Sodium 80 mg/ (Enoxaparin Sodium 40 mg) 120 mg SQ Q12H [facility] Last Admin: 01/27/19 15:45 Dose: 120 mg Insulin Aspart (Novolog Vial Sliding Scale -) 1 vial SQ [facility]; Protocol Last Admin: 01/27/19 16:07 Dose: 4 units Lisinopril (Prinivil) 2.5 mg PO DAILY [facility] Last Admin: 01/27/19 09:05 Dose: 2.5 mg Metoprolol Tartrate (Lopressor -) 25 mg PO BID [facility] Last Admin: 01/27/19 09:05 Dose: 25 mg Morphine Sulfate (Morphine Sulfate) 2 mg IVPUSH Q6H PRN PRN Reason: PAIN LEVEL 4-6 Last Admin: 01/27/19 15:40 Dose: 2 mg Morphine Sulfate (Morphine Sulfate) 2 mg IVPUSH Q6H PRN PRN Reason: PAIN 7-10 Ondansetron HCl (Zofran Injection) 4 mg IVPUSH Q6H PRN PRN Reason: NAUSEA AND/OR VOMITING Promethazine HCl (Phenergan Injection -) 12.5 mg IVPB Q6H PRN PRN Reason: NAUSEA-FOR RESCUE AFTER 15 MIN - Objective Vital Signs: Vital Signs Temperature 98.8 F 01/27/19 15:00 Pulse Rate 90 01/27/19 13:59 Respiratory Rate 20 01/27/19 13:59 Blood Pressure 118/77 01/27/19 13:59 O2 Sat by Pulse Oximetry (%) 95 01/27/19 09:00 Labs: CBC, BMP 01/27/19 09:30 01/27/19 09:30 INR, PTT INR 1.27 (0.83-1.09) H 01/27/19 09:30 Fibrinogen > 500.0 mg/dL (238-498) H D 08/15/19 06:00 Problem List - Problems (1) Arterial occlusion Code(s): I70.90 - UNSPECIFIED ATHEROSCLEROSIS (2) Diabetes type 2, uncontrolled Code(s): E11.65 - TYPE 2 DIABETES MELLITUS WITH HYPERGLYCEMIA (3) Hypertension Code(s): I10 - ESSENTIAL (PRIMARY) HYPERTENSION (4) CAD (coronary artery disease) Code(s): I25.10 - ATHSCL HEART DISEASE OF [place] CORONARY ARTERY W/O ANG PCTRS (5) HLD (hyperlipidemia) Code(s): E78.5 - HYPERLIPIDEMIA, UNSPECIFIED
[2019-01-27] MEDS: ATORVASTATIN CA 40 MG TABLET (FP) PO SCH (21:22)
[2019-01-28] MEDS ORDERED: ENOXAPARIN NA (PORCINE) 40 MG/0.4 ML DISP.SYRIN SQ ONE ×2 (04:01→16:53)
[2019-01-28] MEDS ORDERED: ENOXAPARIN NA (PORCINE) 80 MG/0.8 ML DISP.SYRIN SQ ONE ×2 (04:01→16:53)
[2019-01-28] MEDS: ENOXAPARIN SQ SCH ×2 (04:45→17:02)
[2019-01-28] MEDS: ACETAMINOPHEN 325 MG TABLET (FP) PO PRN ×2 (06:54→21:38)
[2019-01-28] MEDS: INSULIN SLIDING SCALE (NOVOLOG) 1 VIAL SQ SCH ×4 (06:58→21:35)
[2019-01-28] MEDS: METOPROLOL TARTRATE 25 MG TABLET (FP) PO SCH ×2 (09:05→21:38)
[2019-01-28] MEDS: LISINOPRIL 5 MG TABLET (FP) PO SCH (09:06)
[2019-01-28] MEDS: ASPIRIN 81 MG CHEWABLE TABLETS PO SCH (09:06)
[2019-01-28] MEDS ORDERED: MORPHINE SULFATE 2 MG/ML VIAL IVPUSH ONE (10:30)
[2019-01-28 12:15] LABS: BASO % 1.1 % (0-2.0); EOS % 2.1 % (0-4.5); HEMATOCRIT 35.8 % (35.4-49); HEMOGLOBIN 11.8 GM/dL (11.7-16.9); LYMPH % 18.8 % (8-40); MCH 26.1 pg (25.7-33.7); MCHC 32.8 g/dl (32.0-35.9); MEAN CELL VOLUME 79.4 fl (80-96); MONO % 11.1 % (3.8-10.2); NEUT % 66.9 % (42.8-82.8); PLATELET COUNT 478 K/MM3 (134-434); RBC 4.51 M/mm3 (4.00-5.60); RDW 14.4 % (11.9-15.9); WHITE BLOOD COUNT 14.7 K/mm3 (4.0-10.0)
[2019-01-28 12:27] LABS: ALBUMIN 2.9 g/dl (3.4-5.0); BILIRUBIN,TOTAL 0.3 mg/dL (0.2-1); BLOOD UREA NITROGEN 9.5 mg/dL (7-18); CALCIUM 9.1 mg/dL (8.5-10.1); POTASSIUM 4.1 mmol/L (3.5-5.1); TOT PROT 8.1 g/dl (6.4-8.2)
[2019-01-28 12:30] LABS: INR 1.44 (0.83-1.09); PROTHROMBIN TIME (PATIENT) 17.1 SEC (9.7-13.0)
[2019-01-28] MEDS ORDERED: PIPERACILLIN/TAZOB 3.375 GM 3.375 GM in DEXTROSE 5%-WATER - 50 ML IVPB SCH (13:00)
[2019-01-28] MEDS ORDERED: VANCOMYCIN 1,000 MG in DEXTROSE 5%-WATER - 250 ML IVPB SCH (13:00)
[2019-01-28] MEDS ORDERED: DEXTROSE 5%-WATER - 50 ML IVPB ONE ×2 (14:07→17:20)
[2019-01-28] MEDS ORDERED: PIPERACILLIN/TAZOBACTAM 3.375 GM VIAL IVPB ONE ×2 (14:07→17:20)
[2019-01-28] MEDS: PIPERACILLIN/TAZOB 3.375 GM 3.375 GM in DEXTROSE 5%-WATER - 50 ML IVPB SCH ×2 (14:15→18:03)
[2019-01-28] MEDS: VANCOMYCIN 1 GRAM (PRE-DOCKED) 1,000 MG/250 ML BAG IVPB SCH (14:16)
[2019-01-28] MEDS ORDERED: PT OWN MED DRAWER 7, Y5N ONE (16:53)
[2019-01-28] MEDS: WARFARIN NA 7.5 MG TABLET (FP) PO SCH (17:02)
--- NOTE | 2019-01-28 18:44 | CON.ID ---
Consult - History of Present Illness History of Present Illness: 49 y.o. male with PMH of DVT, RLE arterial occlusion s/p TPA (has not been taking Xarelto due to lack of insurance coverage), obesity, CAD s/p stent, CHF, HTN, HLD, DM presented with c/o severe RLE pain x 1 wk and foot feeling cold. He was noted to have Rt popliteal/tibial artery thromboses and had an angiogram with thrombolysis. Subsequently noted to have worsening Rt foot pain and coldness underwent RLE angiogram and SFA angioplasty/stent with tibial artery angioplasty. WBC now noted to be trending up, today 14K and Tmax 99.3. He recently had pérez insertion with development of hematuria which is resolving, pérez was removed. Pt is alert and fully responsive and still with Rt foot pain/ LE pressure but less cold. He denies chills, SOB, cough, CP, abd pain/n/v/d, dysuria, rash, or any other specific complaints. - History Source History Provided By: Patient, Medical Record - Past Medical History Cardio/Vascular: Yes: CHF (diastolic), HTN, [place] (by hx : ? 2016) Endocrine: Yes: Diabetes Mellitus - Past Surgical History Past Surgical History: Yes: Stent (coronary ) - Alcohol/Substance Use Hx Alcohol Use: No - Smoking History Smoking history: Never smoked Have you smoked in the past 12 months: Yes Aproximately how many cigarettes per day: 4 Home Medications - Allergies Allergies/Adverse Reactions: Allergies Allergy/AdvReac Type Severity Reaction Status Date / Time No Known Allergies Allergy Verified 01/23/19 18:22 - Home Medications Home Medications: Ambulatory Orders Aspirin [ASA -] 81 mg PO DAILY #30 tab.chew 09/22/17 Atorvastatin Ca [Lipitor] 40 mg PO HS #30 tablet 09/22/17 Glyburide [Micronase -] 5 mg PO DAILY@0700 #30 tablet 09/22/17 Metoprolol Tartrate [Lopressor -] 25 mg PO BID #30 tablet 09/22/17 Insulin Glargine,Hum.rec.anlog [Lantus Solostar PEN (NF)] 0 units SQ BID Rivaroxaban [Xarelto -] 20 mg PO DAILY 01/24/19 Review of Systems - Review of Systems Constitutional: reports: No Symptoms Eyes: reports: No Symptoms HENT: reports: No Symptoms Neck: reports: No Symptoms Cardiovascular: reports: No Symptoms Respiratory: reports: No Symptoms Gastrointestinal: reports: No Symptoms Genitourinary: reports: Hematuria Musculoskeletal: reports: Extremity Pain (Rt foot tenderness, RLE "tight") Integumentary: reports: No Symptoms Neurological: reports: No Symptoms Endocrine: reports: No Symptoms Psychiatric: reports: No Symptoms Physical Exam Vital Signs: Vital Signs Temperature 98.9 F 01/28/19 13:47 Pulse Rate 94 H 01/28/19 13:47 Respiratory Rate 20 01/28/19 13:47 Blood Pressure 117/71 01/28/19 13:47 O2 Sat by Pulse Oximetry (%) 99 01/28/19 09:00 Constitutional: Yes: No Distress, Calm Eyes: Yes: Conjunctiva Clear, EOM Intact HENT: Yes: Atraumatic Neck: Yes: Supple Cardiovascular: Yes: Tachycardia Respiratory: Yes: CTA Bilaterally Gastrointestinal: Yes: Normal Bowel Sounds, Soft, Abdomen, Obese Renal/: Yes: Hematuria (urine slightly pink tinged) Extremities: Yes: Other (Rt foot mildly cool to touch. +Rt foot pain, no notable erythema +Rt 4th toe interdigital ulceration, no pus +mild amt of sanguinous oozing) Edema: No Integumentary: Yes: WNL Neurological: Yes: Alert, Oriented Psychiatric: Yes: Alert, Oriented Labs: CBC, BMP 01/28/19 11:00 01/28/19 11:00 Laboratory Results - last 24 hr 01/27/19 01/28/19 01/28/19 21:18 06:57 10:41 WBC RBC Hgb Hct MCV MCH MCHC RDW Plt Count MPV Absolute Neuts (auto) Neutrophils % Lymphocytes % Monocytes % Eosinophils % Basophils % Nucleated RBC % PT with INR INR Sodium Potassium Chloride Carbon Dioxide Anion Gap BUN Creatinine Est GFR (CKD-EPI)AfAm Est GFR (CKD-EPI)NonAf POC Glucometer 238 191 240 Random Glucose Calcium Total Bilirubin AST ALT Alkaline Phosphatase Total Protein Albumin 01/28/19 01/28/19 01/28/19 11:00 11:00 11:00 WBC 14.7 H RBC 4.51 Hgb 11.8 Hct 35.8 MCV 79.4 L MCH 26.1 MCHC 32.8 RDW 14.4 Plt Count 478 H D MPV 8.0 Absolute Neuts (auto) 9.8 H Neutrophils % 66.9 Lymphocytes % 18.8 Monocytes % 11.1 H Eosinophils % 2.1 Basophils % 1.1 Nucleated RBC % 0 PT with INR 17.10 H INR 1.44 H Sodium 137 Potassium 4.1 Chloride 100 Carbon Dioxide 28 Anion Gap 9 BUN 9.5 Creatinine 1.0 Est GFR (CKD-EPI)AfAm 102.69 Est GFR (CKD-EPI)NonAf 88.61 POC Glucometer Random Glucose 246 H Calcium 9.1 Total Bilirubin 0.3 AST 15 ALT 20 Alkaline Phosphatase 105 Total Protein 8.1 Albumin 2.9 L 01/28/19 17:05 WBC RBC Hgb Hct MCV MCH MCHC RDW Plt Count MPV Absolute Neuts (auto) Neutrophils % Lymphocytes % Monocytes % Eosinophils % Basophils % Nucleated RBC % PT with INR INR Sodium Potassium Chloride Carbon Dioxide Anion Gap BUN Creatinine Est GFR (CKD-EPI)AfAm Est GFR (CKD-EPI)NonAf POC Glucometer 234 Random Glucose Calcium Total Bilirubin AST ALT Alkaline Phosphatase Total Protein Albumin Imaging - Results Other: Report Reviewed Problem List - Problems (1) Arterial occlusion Code(s): I70.90 - UNSPECIFIED ATHEROSCLEROSIS (2) CAD (coronary artery disease) Code(s): I25.10 - ATHSCL HEART DISEASE OF [place] CORONARY ARTERY W/O ANG PCTRS (3) H/O heart artery stent Code(s): Z95.5 - PRESENCE OF CORONARY ANGIOPLASTY IMPLANT AND GRAFT (4) HLD (hyperlipidemia) Code(s): E78.5 - HYPERLIPIDEMIA, UNSPECIFIED (5) Hematuria Code(s): R31.9 - HEMATURIA, UNSPECIFIED (6) Obesity Code(s): E66.9 - OBESITY, UNSPECIFIED (7) PAD (peripheral artery disease) Code(s): I73.9 - PERIPHERAL VASCULAR DISEASE, UNSPECIFIED (8) Right leg pain Code(s): M79.604 - PAIN IN RIGHT LEG (9) Smokes cigarettes Code(s): F17.210 - NICOTINE DEPENDENCE, CIGARETTES, UNCOMPLICATED (10) Diabetes type 2, uncontrolled Code(s): E11.65 - TYPE 2 DIABETES MELLITUS WITH HYPERGLYCEMIA (11) Hypertension Code(s): I10 - ESSENTIAL (PRIMARY) HYPERTENSION Assessment/Plan 49 y.o. male with PMH of DVT, RLE arterial occlusion s/p TPA (has not been taking Xarelto due to lack of insurance coverage), obesity, CAD s/p stent, CHF, HTN, HLD, DM presented with c/o severe RLE pain x 1 wk and foot feeling cold. Noted to have Rt popliteal and tibial arterial occlusion and initially underwent thrombolysis but then subsequently had SFA angioplasty with stent and tibial artery angioplasty on 01/25/19. Pt noted to have increasing wbc count since yesterday and mild temp elevation to 99.3F. +recent hematuria Leukocytosis RLE popliteal and tibial artery occlusion s/p angioplasty/stent Hematuria Hx of RLE arterial occlusion s/p TPA CAD s/p stent CHF DM HTN HLD Obesity -- send UA, Blood cultures -- started empirically on Zosyn/Vancomycin -- monitor wbc, temperature trends, renal function -- Vascular follow up -- monitor renal function Will follow Thank you
--- NOTE | 2019-01-28 21:04 | OP ---
DATE OF OPERATION: 01/25/2019 PREOPERATIVE DIAGNOSIS: Right lower extremity ischemia. POSTOPERATIVE DIAGNOSIS: Right lower extremity ischemia. PROCEDURE: Right lower extremity angiogram, superficial femoral artery angioplasty with stent, tibial artery angioplasty. SURGEON: Morgan Barragan DO ANESTHESIA: Fractional. BLOOD LOSS: 30 mL. The patient is a 49-year-old male who came in with right lower extremity ischemia. Over the last 28 hours, he has been getting tPA at 1 mg to 2 mg a hour. Now his foot is warm and he has a dopplerable PT pulse and it was decided to go back for thrombolysis check. Patient was consented for the procedure, understanding all risks, benefits, alternatives. He was then taken to the operating room. Once in the operating room, placed on operating table in supine manner. The area of the right and left groin were prepped and draped in a sterile surgical manner. We removed our EKOS catheter and we placed a 0.035 floppy guidewire down into the SFA. We then shot an angiogram of the right lower extremity, showing that the SFA was patent but the distal SFA still had stenotic disease with clot. Popliteal artery was patent and TP trunk was stenotic and main runoff was PT into the foot. At this point, we placed a 0.035 stiff guidewire down into the posterior tibial artery. We then used a 4 x 8 balloon and performed angioplasty of the TP trunk. Once completed, we shot an angiogram, showing the TP trunk was not patent. We then went ahead and used a 6 x 150 LifeStent and placed it in the distal SFA, ballooned, and we then went ahead and ballooned it in place using a 6 x 150 Ultraverse balloon. Completion angiogram now showed that the SFA was patent, there was good brisk runoff all the way into the foot, and PT was the main runoff. At this point, no intervention was needed. We brought our sheath up and over. StarClose device was successfully deployed in the left common femoral artery. Pressure was held for 5 minutes. After there was no more bleeding, the area was wet and dried and Dermabond was placed. Patient tolerated this procedure with no complications. Patient transferred to PACU in stable condition. MORGAN BARRAGAN DO GUYLINE OPERATOR/[id number]
[2019-01-28] MEDS ORDERED: INSULIN (NOVOLOG) ASPART 100 UNITS/ML 10ML VIAL ONE (21:28)
[2019-01-28] MEDS: ATORVASTATIN CA 40 MG TABLET (FP) PO SCH (21:38)
[2019-01-28] MEDS: MORPHINE SULFATE 2 MG/ML VIAL IVPUSH PRN (22:09)
--- NOTE | 2019-01-28 23:49 | PN ---
Progress Note, Physician - Current Medication List Current Medications: Active Medications Acetaminophen (Tylenol -) 650 mg PO Q6H PRN PRN Reason: FEVER Last Admin: 01/28/19 21:38 Dose: 650 mg Aspirin (Asa -) 81 mg PO DAILY [facility] Last Admin: 01/28/19 09:06 Dose: 81 mg Atorvastatin Calcium (Lipitor -) 40 mg PO HS [facility] Last Admin: 01/28/19 21:38 Dose: 40 mg Enoxaparin Sodium 80 mg/ (Enoxaparin Sodium 40 mg) 120 mg SQ Q12H [facility] Last Admin: 01/28/19 17:02 Dose: 120 mg Vancomycin HCl (Vancomycin (Pre-Docked)) 1,000 mg in 250 mls @ 166.667 mls/hr IVPB Q12H [facility]; Protocol Piperacillin Sod/Tazobactam (Sod 3.375 gm/ Dextrose) 50 mls @ 100 mls/hr IVPB Q8H-IV [facility]; Protocol Stop: 01/29/19 12:59 Last Admin: 01/28/19 18:03 Dose: 100 mls/hr Vancomycin HCl (Vancomycin (Pre-Docked)) 1,000 mg in 250 mls @ 166.667 mls/hr IVPB Q12H [facility]; Protocol Stop: 01/29/19 12:59 Last Admin: 01/28/19 14:16 Dose: 166.667 mls/hr Piperacillin Sod/Tazobactam (Sod 3.375 gm/ Dextrose) 50 mls @ 100 mls/hr IVPB Q8H-IV [facility]; Protocol Stop: 01/30/19 01:59 Insulin Aspart (Novolog Vial Sliding Scale -) 1 vial SQ ACHS [facility]; Protocol Last Admin: 01/28/19 21:35 Dose: 6 units Lisinopril (Prinivil) 2.5 mg PO DAILY [facility] Last Admin: 01/28/19 09:06 Dose: 2.5 mg Metoprolol Tartrate (Lopressor -) 25 mg PO BID [facility] Last Admin: 01/28/19 21:38 Dose: 25 mg Morphine Sulfate (Morphine Sulfate) 2 mg IVPUSH Q4H PRN PRN Reason: PAIN LEVEL 7-10 Last Admin: 01/28/19 22:09 Dose: 2 mg Ondansetron HCl (Zofran Injection) 4 mg IVPUSH Q6H PRN PRN Reason: NAUSEA AND/OR VOMITING Promethazine HCl (Phenergan Injection -) 12.5 mg IVPB Q6H PRN PRN Reason: NAUSEA-FOR RESCUE AFTER 15 MIN Warfarin Sodium (Coumadin -) 7.5 mg PO DAILY@1800 [facility] Last Admin: 01/28/19 17:02 Dose: 7.5 mg - Objective Vital Signs: Vital Signs Temperature 98.9 F 01/28/19 13:47 Pulse Rate 94 H 01/28/19 13:47 Respiratory Rate 20 01/28/19 13:47 Blood Pressure 117/71 01/28/19 13:47 O2 Sat by Pulse Oximetry (%) 99 01/28/19 09:00 Labs: CBC, BMP 01/28/19 11:00 01/28/19 11:00 INR, PTT INR 1.44 (0.83-1.09) H 01/28/19 11:00 Fibrinogen > 500.0 mg/dL (238-498) H D 01/25/19 06:00 Problem List - Problems (1) Arterial occlusion Code(s): I70.90 - UNSPECIFIED ATHEROSCLEROSIS (2) Diabetes type 2, uncontrolled Code(s): E11.65 - TYPE 2 DIABETES MELLITUS WITH HYPERGLYCEMIA (3) Hypertension Code(s): I10 - ESSENTIAL (PRIMARY) HYPERTENSION (4) CAD (coronary artery disease) Code(s): I25.10 - ATHSCL HEART DISEASE OF [place] CORONARY ARTERY W/O ANG PCTRS (5) HLD (hyperlipidemia) Code(s): E78.5 - HYPERLIPIDEMIA, UNSPECIFIED
[2019-01-29] MEDS ORDERED: PIPERACILLIN/TAZOBACTAM 3.375 GM VIAL IVPB ONE ×2 (01:38→08:55)
[2019-01-29] MEDS ORDERED: PT OWN MED DRAWER 7, Y5N ONE (01:38)
[2019-01-29] MEDS ORDERED: DEXTROSE 5%-WATER - 50 ML IVPB ONE ×2 (01:39→08:55)
[2019-01-29] MEDS: PIPERACILLIN/TAZOB 3.375 GM 3.375 GM in DEXTROSE 5%-WATER - 50 ML IVPB SCH ×5 (01:40→09:10)
[2019-01-29] MEDS: VANCOMYCIN 1 GRAM (PRE-DOCKED) 1,000 MG/250 ML BAG IVPB SCH ×2 (01:41→13:00)
[2019-01-29] MEDS: ENOXAPARIN SQ SCH ×2 (04:30→15:54)
[2019-01-29] MEDS ORDERED: ENOXAPARIN NA (PORCINE) 80 MG/0.8 ML DISP.SYRIN SQ ONE ×2 (05:22→15:50)
[2019-01-29] MEDS ORDERED: ENOXAPARIN NA (PORCINE) 40 MG/0.4 ML DISP.SYRIN SQ ONE ×2 (05:22→15:50)
[2019-01-29] MEDS: MORPHINE SULFATE 2 MG/ML VIAL IVPUSH PRN ×2 (05:24→13:38)
[2019-01-29] MEDS: INSULIN SLIDING SCALE (NOVOLOG) 1 VIAL SQ SCH ×4 (06:20→21:55)
--- NOTE | 2019-01-29 06:37 | PN ---
Progress Note, Physician Chief Complaint: Pt A&Ox3; lying in bed; no complaints; RLE not painful. History of Present Illness: Pt is a 48-year-old black male with past medical history of DVT and right lower extremity arterial occlusion status post angiogram with TPA 08/28, s/p "small [place]" ? 2016-->coronary angiogram and stent,obesity, cigarettes, who presents to ER for evaluation of right lower leg pain worsening over the past week. Patient reports he feels his leg is cold which there is any came to the emergency department for evaluation. Patient ran out of rivaroxaban. He denies fevers, chills, shortness of breath, chest pain, abdominal pain, nausea, vomiting. - Current Medication List Current Medications: Active Medications Acetaminophen (Tylenol -) 650 mg PO Q6H PRN PRN Reason: FEVER Last Admin: 01/28/19 21:38 Dose: 650 mg Aspirin (Asa -) 81 mg PO DAILY [facility] Last Admin: 01/28/19 09:06 Dose: 81 mg Atorvastatin Calcium (Lipitor -) 40 mg PO HS [facility] Last Admin: 01/28/19 21:38 Dose: 40 mg Enoxaparin Sodium 80 mg/ (Enoxaparin Sodium 40 mg) 120 mg SQ Q12H [facility] Last Admin: 01/29/19 04:30 Dose: 120 mg Vancomycin HCl (Vancomycin (Pre-Docked)) 1,000 mg in 250 mls @ 166.667 mls/hr IVPB Q12H [facility]; Protocol Piperacillin Sod/Tazobactam (Sod 3.375 gm/ Dextrose) 50 mls @ 100 mls/hr IVPB Q8H-IV [facility]; Protocol Stop: 01/29/19 12:59 Last Admin: 01/29/19 01:40 Dose: 100 mls/hr Vancomycin HCl (Vancomycin (Pre-Docked)) 1,000 mg in 250 mls @ 166.667 mls/hr IVPB Q12H [facility]; Protocol Stop: 01/29/19 12:59 Last Admin: 01/29/19 01:41 Dose: 166.667 mls/hr Piperacillin Sod/Tazobactam (Sod 3.375 gm/ Dextrose) 50 mls @ 100 mls/hr IVPB Q8H-IV [facility]; Protocol Stop: 01/30/19 01:59 Last Admin: 01/29/19 02:35 Dose: 100 mls/hr Insulin Aspart (Novolog Vial Sliding Scale -) 1 vial SQ ACHS [facility]; Protocol Last Admin: 01/29/19 06:20 Dose: 4 units Lisinopril (Prinivil) 2.5 mg PO DAILY [facility] Last Admin: 01/28/19 09:06 Dose: 2.5 mg Metoprolol Tartrate (Lopressor -) 25 mg PO BID [facility] Last Admin: 01/28/19 21:38 Dose: 25 mg Morphine Sulfate (Morphine Sulfate) 2 mg IVPUSH Q4H PRN PRN Reason: PAIN LEVEL 7-10 Last Admin: 01/29/19 05:24 Dose: 2 mg Ondansetron HCl (Zofran Injection) 4 mg IVPUSH Q6H PRN PRN Reason: NAUSEA AND/OR VOMITING Promethazine HCl (Phenergan Injection -) 12.5 mg IVPB Q6H PRN PRN Reason: NAUSEA-FOR RESCUE AFTER 15 MIN Warfarin Sodium (Coumadin -) 7.5 mg PO DAILY@1800 [facility] Last Admin: 01/28/19 17:02 Dose: 7.5 mg - Objective Vital Signs: Vital Signs Temperature 98.5 F 01/29/19 05:00 Pulse Rate 91 H 01/29/19 05:00 Respiratory Rate 20 01/29/19 05:00 Blood Pressure 119/77 01/29/19 05:00 O2 Sat by Pulse Oximetry (%) 97 01/28/19 21:00 Constitutional: Yes: Calm, Obese Labs: CBC, BMP 01/28/19 11:00 01/28/19 11:00 INR, PTT INR 1.44 (0.83-1.09) H 01/28/19 11:00 Fibrinogen > 500.0 mg/dL (238-498) H D 01/25/19 06:00 Problem List - Problems (1) H/O heart artery stent Assessment/Plan: Hx "small [place]" ? 2016-->coronary stent. S/p RLE angioplasty and stent. F/u lipids and keep LDL < 70 mg/dL. EKG: NSR: LAFB; anterolateral infarct (no significant changes). ECHO 01/26/19: difficult and limited study; grossly normal LVEF, with aortic root upper limits of normal. Code(s): Z95.5 - PRESENCE OF CORONARY ANGIOPLASTY IMPLANT AND GRAFT (2) History of heart attack Code(s): I25.2 - OLD MYOCARDIAL INFARCTION (3) Obesity Code(s): E66.9 - OBESITY, UNSPECIFIED (4) Smokes cigarettes Code(s): F17.210 - NICOTINE DEPENDENCE, CIGARETTES, UNCOMPLICATED (5) Sedentary lifestyle Code(s): Z91.89 - OTH PERSONAL RISK FACTORS, NOT ELSEWHERE CLASSIFIED (6) Arterial occlusion Code(s): I70.90 - UNSPECIFIED ATHEROSCLEROSIS (7) HLD (hyperlipidemia) Code(s): E78.5 - HYPERLIPIDEMIA, UNSPECIFIED (8) Diabetes type 2, uncontrolled Code(s): E11.65 - TYPE 2 DIABETES MELLITUS WITH HYPERGLYCEMIA (9) Hypertension Code(s): I10 - ESSENTIAL (PRIMARY) HYPERTENSION (10) PAD (peripheral artery disease) Code(s): I73.9 - PERIPHERAL VASCULAR DISEASE, UNSPECIFIED
[2019-01-29 07:20] LABS: BASO % 0.9 % (0-2.0); EOS % 2.1 % (0-4.5); HEMATOCRIT 32.8 % (35.4-49); MCH 26.5 pg (25.7-33.7); MCHC 33.4 g/dl (32.0-35.9); MEAN CELL VOLUME 79.3 fl (80-96); MEAN PLT VOLUME 7.3 fl (7.5-11.1); MONO % 12.6 % (3.8-10.2); NEUT % 67.4 % (42.8-82.8); PLATELET COUNT 433 K/MM3 (134-434); RBC 4.14 M/mm3 (4.00-5.60); RDW 14.1 % (11.9-15.9)
[2019-01-29 07:42] LABS: ALBUMIN 2.4 g/dl (3.4-5.0); BILIRUBIN,TOTAL 0.3 mg/dL (0.2-1); BLOOD UREA NITROGEN 10.2 mg/dL (7-18); CALCIUM 8.5 mg/dL (8.5-10.1); TOT PROT 6.9 g/dl (6.4-8.2)
[2019-01-29] MEDS: LISINOPRIL 5 MG TABLET (FP) PO SCH (09:10)
[2019-01-29] MEDS: ASPIRIN 81 MG CHEWABLE TABLETS PO SCH (09:10)
[2019-01-29] MEDS: METOPROLOL TARTRATE 25 MG TABLET (FP) PO SCH ×2 (09:10→21:54)
--- NOTE | 2019-01-29 09:30 | PN ---
Progress Note, Physician History of Present Illness: Pt is a 48-year-old black male with past medical history of DVT and right lower extremity arterial occlusion status post angiogram with TPA 08/28, s/p "small [place] " ? 2016-->coronary angiogram and stent,obesity, cigarettes, who presents to ER for evaluation of right lower leg pain worsening over the past week. Patient reports he feels his leg is cold which there is any came to the emergency department for evaluation. Patient ran out of rivaroxaban. He denies fevers, chills, shortness of breath, chest pain, abdominal pain, nausea, vomiting. - Current Medication List Current Medications: Active Medications Acetaminophen (Tylenol -) 650 mg PO Q6H PRN PRN Reason: FEVER Last Admin: 01/28/19 21:38 Dose: 650 mg Aspirin (Asa -) 81 mg PO DAILY [facility] Last Admin: 01/29/19 09:10 Dose: 81 mg Atorvastatin Calcium (Lipitor -) 40 mg PO HS [facility] Last Admin: 01/28/19 21:38 Dose: 40 mg Enoxaparin Sodium 80 mg/ (Enoxaparin Sodium 40 mg) 120 mg SQ Q12H [facility] Last Admin: 01/29/19 04:30 Dose: 120 mg Vancomycin HCl (Vancomycin (Pre-Docked)) 1,000 mg in 250 mls @ 166.667 mls/hr IVPB Q12H [facility]; Protocol Piperacillin Sod/Tazobactam (Sod 3.375 gm/ Dextrose) 50 mls @ 100 mls/hr IVPB Q8H-IV [facility]; Protocol Stop: 01/29/19 12:59 Last Admin: 01/29/19 09:10 Dose: 100 mls/hr Insulin Aspart (Novolog Vial Sliding Scale -) 1 vial SQ ACHS [facility]; Protocol Last Admin: 01/29/19 06:20 Dose: 4 units Lisinopril (Prinivil) 2.5 mg PO DAILY [facility] Last Admin: 01/29/19 09:10 Dose: 2.5 mg Metoprolol Tartrate (Lopressor -) 25 mg PO BID [facility] Last Admin: 01/29/19 09:10 Dose: 25 mg Morphine Sulfate (Morphine Sulfate) 2 mg IVPUSH Q4H PRN PRN Reason: PAIN LEVEL 7-10 Last Admin: 01/29/19 05:24 Dose: 2 mg Ondansetron HCl (Zofran Injection) 4 mg IVPUSH Q6H PRN PRN Reason: NAUSEA AND/OR VOMITING Promethazine HCl (Phenergan Injection -) 12.5 mg IVPB Q6H PRN PRN Reason: NAUSEA-FOR RESCUE AFTER 15 MIN Warfarin Sodium (Coumadin -) 7.5 mg PO DAILY@1800 [facility] Last Admin: 01/28/19 17:02 Dose: 7.5 mg - Objective Vital Signs: Vital Signs Temperature 98.5 F 01/29/19 05:00 Pulse Rate 91 H 01/29/19 05:00 Respiratory Rate 20 01/29/19 05:00 Blood Pressure 119/77 01/29/19 05:00 O2 Sat by Pulse Oximetry (%) 97 01/28/19 21:00 Labs: CBC, BMP 01/29/19 06:20 01/29/19 06:20 INR, PTT INR 1.44 (0.83-1.09) H 01/28/19 11:00 Fibrinogen > 500.0 mg/dL (238-498) H D 01/25/19 06:00 Assessment/Plan - Problems (1) H/O heart artery stent Assessment/Plan: Hx "small [place]" ? 2016-->coronary stent. S/p RLE angioplasty and stent. F/u lipids and keep LDL < 70 mg/dL. EKG: NSR: LAFB; anterolateral infarct (no significant changes). ECHO 01/26/19: difficult and limited study; grossly normal LVEF, with aortic root upper limits of normal. Code(s): Z95.5 - PRESENCE OF CORONARY ANGIOPLASTY IMPLANT AND GRAFT (2) History of heart attack Code(s): I25.2 - OLD MYOCARDIAL INFARCTION (3) Obesity Code(s): E66.9 - OBESITY, UNSPECIFIED (4) Smokes cigarettes Code(s): F17.210 - NICOTINE DEPENDENCE, CIGARETTES, UNCOMPLICATED (5) Sedentary lifestyle Code(s): Z91.89 - OTH PERSONAL RISK FACTORS, NOT ELSEWHERE CLASSIFIED (6) Arterial occlusion Code(s): I70.90 - UNSPECIFIED ATHEROSCLEROSIS (7) HLD (hyperlipidemia) Code(s): E78.5 - HYPERLIPIDEMIA, UNSPECIFIED (8) Diabetes type 2, uncontrolled Code(s): E11.65 - TYPE 2 DIABETES MELLITUS WITH HYPERGLYCEMIA (9) Hypertension Code(s): I10 - ESSENTIAL (PRIMARY) HYPERTENSION (10) PAD (peripheral artery disease) Code(s): I73.9 - PERIPHERAL VASCULAR DISEASE, UNSPECIFIED Cont AC. F/u as per vascular surgery
--- NOTE | 2019-01-29 12:10 | PN ---
Progress Note, Physician History of Present Illness: patient stable still with no pulses leg is cold and tender stent was done recently - Current Medication List Current Medications: Active Medications Acetaminophen (Tylenol -) 650 mg PO Q6H PRN PRN Reason: FEVER Last Admin: 01/28/19 21:38 Dose: 650 mg Aspirin (Asa -) 81 mg PO DAILY [facility] Last Admin: 01/29/19 09:10 Dose: 81 mg Atorvastatin Calcium (Lipitor -) 40 mg PO HS [facility] Last Admin: 01/28/19 21:38 Dose: 40 mg Enoxaparin Sodium 80 mg/ (Enoxaparin Sodium 40 mg) 120 mg SQ Q12H [facility] Last Admin: 01/29/19 04:30 Dose: 120 mg Vancomycin HCl (Vancomycin (Pre-Docked)) 1,000 mg in 250 mls @ 166.667 mls/hr IVPB Q12H [facility]; Protocol Piperacillin Sod/Tazobactam (Sod 3.375 gm/ Dextrose) 50 mls @ 100 mls/hr IVPB Q8H-IV [facility]; Protocol Stop: 01/29/19 12:59 Last Admin: 01/29/19 09:10 Dose: 100 mls/hr Insulin Aspart (Novolog Vial Sliding Scale -) 1 vial SQ ACHS [facility]; Protocol Last Admin: 01/29/19 11:05 Dose: 4 units Lisinopril (Prinivil) 2.5 mg PO DAILY [facility] Last Admin: 01/29/19 09:10 Dose: 2.5 mg Metoprolol Tartrate (Lopressor -) 25 mg PO BID [facility] Last Admin: 01/29/19 09:10 Dose: 25 mg Morphine Sulfate (Morphine Sulfate) 2 mg IVPUSH Q4H PRN PRN Reason: PAIN LEVEL 7-10 Last Admin: 01/29/19 05:24 Dose: 2 mg Ondansetron HCl (Zofran Injection) 4 mg IVPUSH Q6H PRN PRN Reason: NAUSEA AND/OR VOMITING Promethazine HCl (Phenergan Injection -) 12.5 mg IVPB Q6H PRN PRN Reason: NAUSEA-FOR RESCUE AFTER 15 MIN Warfarin Sodium (Coumadin -) 7.5 mg PO DAILY@1800 [facility] Last Admin: 01/28/19 17:02 Dose: 7.5 mg - Objective Vital Signs: Vital Signs Temperature 98.7 F 01/29/19 09:00 Pulse Rate 101 H 01/29/19 09:00 Respiratory Rate 20 01/29/19 09:00 Blood Pressure 136/85 01/29/19 09:00 O2 Sat by Pulse Oximetry (%) 98 01/29/19 09:00 Constitutional: Yes: Calm, Mild Distress Cardiovascular: Yes: Pulse Irregular Respiratory: Yes: Regular, CTA Bilaterally Gastrointestinal: Yes: Normal Bowel Sounds, Soft Musculoskeletal: Yes: Other Extremities: Yes: Other (rt ext cold no pulses) Neurological: Yes: Alert, Oriented Psychiatric: Yes: Alert, Oriented Labs: CBC, BMP 01/29/19 06:20 01/29/19 06:20 INR, PTT INR 1.44 (0.83-1.09) H 01/28/19 11:00 Fibrinogen > 500.0 mg/dL (238-498) H D 01/25/19 06:00 Assessment/Plan Problem List - Problems (1) Arterial occlusion Code(s): I70.90 - UNSPECIFIED ATHEROSCLEROSIS (2) CAD (coronary artery disease) Code(s): I25.10 - ATHSCL HEART DISEASE OF [place] CORONARY ARTERY W/O ANG PCTRS (3) H/O heart artery stent Code(s): Z95.5 - PRESENCE OF CORONARY ANGIOPLASTY IMPLANT AND GRAFT (4) HLD (hyperlipidemia) Code(s): E78.5 - HYPERLIPIDEMIA, UNSPECIFIED (5) Hematuria Code(s): R31.9 - HEMATURIA, UNSPECIFIED (6) Obesity Code(s): E66.9 - OBESITY, UNSPECIFIED (7) PAD (peripheral artery disease) Code(s): I73.9 - PERIPHERAL VASCULAR DISEASE, UNSPECIFIED (8) Right leg pain Code(s): M79.604 - PAIN IN RIGHT LEG (9) Smokes cigarettes Code(s): F17.210 - NICOTINE DEPENDENCE, CIGARETTES, UNCOMPLICATED (10) Diabetes type 2, uncontrolled Code(s): E11.65 - TYPE 2 DIABETES MELLITUS WITH HYPERGLYCEMIA (11) Hypertension Code(s): I10 - ESSENTIAL (PRIMARY) HYPERTENSION Assessment/Plan 49 y.o. male with PMH of DVT, RLE arterial occlusion s/p TPA (has not been taking Xarelto due to lack of insurance coverage), obesity, CAD s/p stent, CHF, HTN, HLD, DM presented with c/o severe RLE pain x 1 wk and foot feeling cold. Noted to have Rt popliteal and tibial arterial occlusion and initially underwent thrombolysis but then subsequently had SFA angioplasty with stent and tibial artery angioplasty on 01/25/19. Pt noted to have increasing wbc count since yesterday and mild temp elevation to 99.3F. +recent hematuria Leukocytosis RLE popliteal and tibial artery occlusion s/p angioplasty/stent Hematuria Hx of RLE arterial occlusion s/p TPA CAD s/p stent CHF DM HTN HLD Obesity plan await for blood cx reports await for vascular monitor leg rest as per the team
--- NOTE | 2019-01-29 12:19 | PN ---
Progress Note (short form) - Note Progress Note: Vascular Surgery Pt seen and examined. Pt with some forefoot pain. Pt has strong dopplerable signal. Pt on lovenox being switched over to coumadin. Will watch leg for now. Should get better as pt's INR becomes therapeutic. Will cont to follow Morgan Chandler DO Problem List - Problems (1) Arterial occlusion Code(s): I70.90 - UNSPECIFIED ATHEROSCLEROSIS (2) Right leg pain Code(s): M79.604 - PAIN IN RIGHT LEG
[2019-01-29 12:57] LABS: INR 1.74 (0.83-1.09); PROTHROMBIN TIME (PATIENT) 20.7 SEC (9.7-13.0)
[2019-01-29] MEDS: WARFARIN NA 7.5 MG TABLET (FP) PO SCH (17:01)
[2019-01-29] MEDS ORDERED: INSULIN (NOVOLOG) ASPART 100 UNITS/ML 10ML VIAL ONE (21:22)
[2019-01-29] MEDS: ATORVASTATIN CA 40 MG TABLET (FP) PO SCH (21:54)
--- NOTE | 2019-01-29 22:22 | PN ---
Progress Note, Physician History of Present Illness: No new complaints - Current Medication List Current Medications: Active Medications Acetaminophen (Tylenol -) 650 mg PO Q6H PRN PRN Reason: FEVER Last Admin: 01/28/19 21:38 Dose: 650 mg Aspirin (Asa -) 81 mg PO DAILY [facility] Last Admin: 01/29/19 09:10 Dose: 81 mg Atorvastatin Calcium (Lipitor -) 40 mg PO HS [facility] Last Admin: 01/29/19 21:54 Dose: 40 mg Enoxaparin Sodium 80 mg/ (Enoxaparin Sodium 40 mg) 120 mg SQ Q12H [facility] Last Admin: 01/29/19 15:54 Dose: 120 mg Vancomycin HCl (Vancomycin (Pre-Docked)) 1,000 mg in 250 mls @ 166.667 mls/hr IVPB Q12H [facility]; Protocol Last Admin: 01/29/19 13:00 Dose: 166.667 mls/hr Insulin Aspart (Novolog Vial Sliding Scale -) 1 vial SQ ACHS [facility]; Protocol Last Admin: 01/29/19 21:55 Dose: 4 units Lisinopril (Prinivil) 2.5 mg PO DAILY [facility] Last Admin: 01/29/19 09:10 Dose: 2.5 mg Metoprolol Tartrate (Lopressor -) 25 mg PO BID [facility] Last Admin: 01/29/19 21:54 Dose: 25 mg Morphine Sulfate (Morphine Sulfate) 2 mg IVPUSH Q4H PRN PRN Reason: PAIN LEVEL 7-10 Last Admin: 01/29/19 13:38 Dose: 2 mg Ondansetron HCl (Zofran Injection) 4 mg IVPUSH Q6H PRN PRN Reason: NAUSEA AND/OR VOMITING Promethazine HCl (Phenergan Injection -) 12.5 mg IVPB Q6H PRN PRN Reason: NAUSEA-FOR RESCUE AFTER 15 MIN Warfarin Sodium (Coumadin -) 7.5 mg PO DAILY@1800 [facility] Last Admin: 01/29/19 17:01 Dose: 7.5 mg - Objective Vital Signs: Vital Signs Temperature 99.4 F 01/29/19 20:29 Pulse Rate 109 H 01/29/19 20:29 Respiratory Rate 16 01/29/19 20:29 Blood Pressure 138/85 01/29/19 20:29 O2 Sat by Pulse Oximetry (%) 98 01/29/19 09:00 Neck: Yes: WNL, Supple Cardiovascular: Yes: WNL, Regular Rate and Rhythm Respiratory: Yes: WNL, Regular, CTA Bilaterally Gastrointestinal: Yes: WNL, Normal Bowel Sounds, Soft, Abdomen, Obese Extremities: Yes: Other (RLE absent pedal pulses/cool (+) ulcers Between 3-4 and 4-5 toes w/ odor/discharge) Labs: CBC, BMP 01/29/19 06:20 01/29/19 06:20 INR, PTT INR 1.74 (0.83-1.09) H 01/29/19 11:50 Fibrinogen > 500.0 mg/dL (238-498) H D 01/25/19 06:00 Problem List - Problems (1) Diabetic foot ulcer Assessment/Plan: Cont IV zosyn/vanco Monitor cultures Check XRay to r/o osteo Code(s): E11.621 - TYPE 2 DIABETES MELLITUS WITH FOOT ULCER; L97.509 - NON- PRESSURE CHRONIC ULCER OTH PRT UNSP FOOT W UNSP SEVERITY (2) Arterial occlusion Assessment/Plan: Duplex ultrasound revealed right popliteal, and posterior tibial artery occlusion. CTA with runoff reveals occlusive thrombus in the right popliteal artery, with nonocclusive thrombus in distal portion of right superficial femoral artery. S/P RLE angiogram, and infusion of thrombolysis(Alteplase Cont asa. Cont lovenox and bridge w/ coumadin Monitor PT/INR Code(s): I70.90 - UNSPECIFIED ATHEROSCLEROSIS (3) Diabetes type 2, uncontrolled Assessment/Plan: Cont sliding scale w/ coverage Code(s): E11.65 - TYPE 2 DIABETES MELLITUS WITH HYPERGLYCEMIA (4) Hypertension Assessment/Plan: BP stable Cont metoprolol Code(s): I10 - ESSENTIAL (PRIMARY) HYPERTENSION (5) CAD (coronary artery disease) Assessment/Plan: Cont asa Code(s): I25.10 - ATHSCL HEART DISEASE OF [place] CORONARY ARTERY W/O ANG PCTRS (6) HLD (hyperlipidemia) Assessment/Plan: Cont lipitor Code(s): E78.5 - HYPERLIPIDEMIA, UNSPECIFIED (7) PAD (peripheral artery disease) Code(s): I73.9 - PERIPHERAL VASCULAR DISEASE, UNSPECIFIED
[2019-01-30] MEDS: VANCOMYCIN 1 GRAM (PRE-DOCKED) 1,000 MG/250 ML BAG IVPB SCH (01:40)
[2019-01-30] MEDS: MORPHINE SULFATE 2 MG/ML VIAL IVPUSH PRN ×2 (01:43→11:35)
[2019-01-30] MEDS ORDERED: ENOXAPARIN NA (PORCINE) 80 MG/0.8 ML DISP.SYRIN SQ ONE (04:18)
[2019-01-30] MEDS ORDERED: ENOXAPARIN NA (PORCINE) 40 MG/0.4 ML DISP.SYRIN SQ ONE (04:18)
[2019-01-30] MEDS: ENOXAPARIN SQ SCH ×2 (04:36→17:04)
[2019-01-30] MEDS: INSULIN SLIDING SCALE (NOVOLOG) 1 VIAL SQ SCH ×5 (06:39→21:00)
[2019-01-30 07:34] LABS: BASO % 1.3 % (0-2.0); EOS % 2.2 % (0-4.5); HEMATOCRIT 33.2 % (35.4-49); LYMPH % 19.8 % (8-40); MCH 25.9 pg (25.7-33.7); MEAN CELL VOLUME 78.4 fl (80-96); MEAN PLT VOLUME 7.4 fl (7.5-11.1); MONO % 10.8 % (3.8-10.2); NEUT % 65.9 % (42.8-82.8); PLATELET COUNT 497 K/MM3 (134-434); RBC 4.24 M/mm3 (4.00-5.60); WHITE BLOOD COUNT 11.7 K/mm3 (4.0-10.0)
[2019-01-30 07:59] LABS: INR 2.15 (0.83-1.09); PROTHROMBIN TIME (PATIENT) 25.6 SEC (9.7-13.0)
[2019-01-30 08:11] LABS: ALBUMIN 2.3 g/dl (3.4-5.0); BILIRUBIN,TOTAL 0.3 mg/dL (0.2-1); CALCIUM 8.6 mg/dL (8.5-10.1); CREATININE 0.9 mg/dL (0.55-1.3)
--- NOTE | 2019-01-30 10:23 | PN ---
Progress Note (short form) - Note Progress Note: POD #5 s/p RLE angiogram, SFA angioplasty with stent placement, tibial artery angioplasty No acute events over past 24hrs per RN notes. Patient supine in bed. Still c/o pain to his forefoot, but feels its slightly less painful compared to yesterdays exam. He is on ASA 81mg daily and Coumadin 7.5mg daily. Last Vital Signs Temp Pulse Resp BP Pulse Ox 98.5 F 97 H 18 125/90 98 01/30/19 06:00 01/30/19 06:00 01/30/19 06:00 01/30/19 06:00 01/29/19 21:00 INR TREND 01/26/19 01/27/19 01/28/19 01/29/19 01/30/19 08:16 09:30 11:00 11:50 06:22 INR 1.26 H 1.27 H 1.44 H 1.74 2.15 Gen: alert. nad. LE: LLE unremarkable. RLE with strong dopplerable PT (never had a DP). Forefoot cool to touch (unchanged from yesterday). Problem List - Problems (1) Right leg pain Assessment/Plan: Cont current plan as per Medicine Cont to monitor INR until therapeutic Pain management PRN Code(s): M79.604 - PAIN IN RIGHT LEG (2) Hypertension Code(s): I10 - ESSENTIAL (PRIMARY) HYPERTENSION
[2019-01-30] MEDS: ASPIRIN 81 MG CHEWABLE TABLETS PO SCH (11:36)
[2019-01-30] MEDS: LISINOPRIL 5 MG TABLET (FP) PO SCH (11:36)
[2019-01-30] MEDS: METOPROLOL TARTRATE 25 MG TABLET (FP) PO SCH ×2 (11:37→21:00)
--- NOTE | 2019-01-30 11:45 | PN ---
Progress Note, Physician History of Present Illness: leg warm but forefoot cold - Current Medication List Current Medications: Active Medications Acetaminophen (Tylenol -) 650 mg PO Q6H PRN PRN Reason: FEVER Last Admin: 01/28/19 21:38 Dose: 650 mg Aspirin (Asa -) 81 mg PO DAILY [facility] Last Admin: 01/30/19 11:36 Dose: 81 mg Atorvastatin Calcium (Lipitor -) 40 mg PO HS [facility] Last Admin: 01/29/19 21:54 Dose: 40 mg Enoxaparin Sodium 80 mg/ (Enoxaparin Sodium 40 mg) 120 mg SQ Q12H [facility] Last Admin: 01/30/19 04:36 Dose: 120 mg Vancomycin HCl (Vancomycin (Pre-Docked)) 1,000 mg in 250 mls @ 166.667 mls/hr IVPB Q12H [facility]; Protocol Last Admin: 01/30/19 01:40 Dose: 166.667 mls/hr Insulin Aspart (Novolog Vial Sliding Scale -) 1 vial SQ ACHS [facility]; Protocol Last Admin: 01/30/19 06:39 Dose: 4 units Lisinopril (Prinivil) 2.5 mg PO DAILY [facility] Last Admin: 01/30/19 11:36 Dose: 2.5 mg Metoprolol Tartrate (Lopressor -) 25 mg PO BID [facility] Last Admin: 01/30/19 11:37 Dose: 25 mg Morphine Sulfate (Morphine Sulfate) 2 mg IVPUSH Q4H PRN PRN Reason: PAIN LEVEL 7-10 Last Admin: 01/30/19 11:35 Dose: 2 mg Ondansetron HCl (Zofran Injection) 4 mg IVPUSH Q6H PRN PRN Reason: NAUSEA AND/OR VOMITING Promethazine HCl (Phenergan Injection -) 12.5 mg IVPB Q6H PRN PRN Reason: NAUSEA-FOR RESCUE AFTER 15 MIN Warfarin Sodium (Coumadin -) 7.5 mg PO DAILY@1800 [facility] Last Admin: 01/29/19 17:01 Dose: 7.5 mg - Objective Vital Signs: Vital Signs Temperature 98.5 F 01/30/19 06:00 Pulse Rate 97 H 01/30/19 06:00 Respiratory Rate 18 01/30/19 06:00 Blood Pressure 125/90 01/30/19 06:00 O2 Sat by Pulse Oximetry (%) 98 01/29/19 21:00 Constitutional: Yes: Calm, Mild Distress Cardiovascular: Yes: S1, S2 Respiratory: Yes: Regular, CTA Bilaterally Gastrointestinal: Yes: Normal Bowel Sounds, Soft Musculoskeletal: Yes: Other Extremities: Yes: Other Neurological: Yes: Alert, Oriented Psychiatric: Yes: Alert, Oriented Labs: CBC, BMP 01/30/19 06:22 01/30/19 06:22 INR, PTT INR 2.15 (0.83-1.09) H 01/30/19 06:22 Fibrinogen > 500.0 mg/dL (238-498) H D 01/25/19 06:00 Assessment/Plan Assessment/Plan Problem List - Problems (1) Arterial occlusion Code(s): I70.90 - UNSPECIFIED ATHEROSCLEROSIS (2) CAD (coronary artery disease) Code(s): I25.10 - ATHSCL HEART DISEASE OF [place] CORONARY ARTERY W/O ANG PCTRS (3) H/O heart artery stent Code(s): Z95.5 - PRESENCE OF CORONARY ANGIOPLASTY IMPLANT AND GRAFT (4) HLD (hyperlipidemia) Code(s): E78.5 - HYPERLIPIDEMIA, UNSPECIFIED (5) Hematuria Code(s): R31.9 - HEMATURIA, UNSPECIFIED (6) Obesity Code(s): E66.9 - OBESITY, UNSPECIFIED (7) PAD (peripheral artery disease) Code(s): I73.9 - PERIPHERAL VASCULAR DISEASE, UNSPECIFIED (8) Right leg pain Code(s): M79.604 - PAIN IN RIGHT LEG (9) Smokes cigarettes Code(s): F17.210 - NICOTINE DEPENDENCE, CIGARETTES, UNCOMPLICATED (10) Diabetes type 2, uncontrolled Code(s): E11.65 - TYPE 2 DIABETES MELLITUS WITH HYPERGLYCEMIA (11) Hypertension Code(s): I10 - ESSENTIAL (PRIMARY) HYPERTENSION Assessment/Plan 49 y.o. male with PMH of DVT, RLE arterial occlusion s/p TPA (has not been taking Xarelto due to lack of insurance coverage), obesity, CAD s/p stent, CHF, HTN, HLD, DM presented with c/o severe RLE pain x 1 wk and foot feeling cold. Noted to have Rt popliteal and tibial arterial occlusion and initially underwent thrombolysis but then subsequently had SFA angioplasty with stent and tibial artery angioplasty on 01/25/19. Pt noted to have increasing wbc count since yesterday and mild temp elevation to 99.3F. +recent hematuria Leukocytosis RLE popliteal and tibial artery occlusion s/p angioplasty/stent Hematuria Hx of RLE arterial occlusion s/p TPA CAD s/p stent CHF DM HTN HLD Obesity plan as per vascular awaiting final plan leg still cold
--- NOTE | 2019-01-30 14:25 | PN ---
Progress Note (short form) - Note Progress Note: VAscular Surgery Pt seen and examined. INR 2.15. right heel warm. Forefoot cool to touch. Main runoff is PT. Dopplerable PT Pain on palpation of forefoot. Will watch. Monitior INR. Might need angiogram if forefoot doesnt get better. Morgan Chandler DO Problem List - Problems (1) Arterial occlusion Code(s): I70.90 - UNSPECIFIED ATHEROSCLEROSIS (2) Right leg pain Code(s): M79.604 - PAIN IN RIGHT LEG
[2019-01-30] MEDS: ACETAMINOPHEN 325 MG TABLET (FP) PO PRN (17:18)
[2019-01-30] MEDS ORDERED: PT OWN MED DRAWER 7, Y5N ONE (18:34)
[2019-01-30] MEDS: WARFARIN NA 7.5 MG TABLET (FP) PO SCH (18:35)
[2019-01-30] MEDS: ATORVASTATIN CA 40 MG TABLET (FP) PO SCH (21:00)
--- NOTE | 2019-01-30 22:55 | PN ---
Progress Note, Physician - Current Medication List Current Medications: Active Medications Acetaminophen (Tylenol -) 650 mg PO Q6H PRN PRN Reason: FEVER Last Admin: 01/30/19 17:18 Dose: 650 mg Aspirin (Asa -) 81 mg PO DAILY [facility] Last Admin: 01/30/19 11:36 Dose: 81 mg Atorvastatin Calcium (Lipitor -) 40 mg PO HS [facility] Last Admin: 01/30/19 21:00 Dose: 40 mg Insulin Aspart (Novolog Vial Sliding Scale -) 1 vial SQ [facility]; Protocol Last Admin: 01/30/19 21:00 Dose: 6 units Lisinopril (Prinivil) 2.5 mg PO DAILY [facility] Last Admin: 01/30/19 11:36 Dose: 2.5 mg Metoprolol Tartrate (Lopressor -) 25 mg PO BID [facility] Last Admin: 01/30/19 21:00 Dose: 25 mg Morphine Sulfate (Morphine Sulfate) 2 mg IVPUSH Q4H PRN PRN Reason: PAIN LEVEL 7-10 Last Admin: 01/30/19 11:35 Dose: 2 mg Ondansetron HCl (Zofran Injection) 4 mg IVPUSH Q6H PRN PRN Reason: NAUSEA AND/OR VOMITING Promethazine HCl (Phenergan Injection -) 12.5 mg IVPB Q6H PRN PRN Reason: NAUSEA-FOR RESCUE AFTER 15 MIN Warfarin Sodium (Coumadin -) 7.5 mg PO DAILY@1800 [facility] Last Admin: 01/30/19 18:35 Dose: 7.5 mg - Objective Vital Signs: Vital Signs Temperature 98.3 F 01/30/19 22:00 Pulse Rate 88 01/30/19 22:00 Respiratory Rate 29 H 01/30/19 22:00 Blood Pressure 121/77 01/30/19 22:00 O2 Sat by Pulse Oximetry (%) 98 01/30/19 21:00 Labs: CBC, BMP 01/30/19 06:22 01/30/19 06:22 INR, PTT INR 2.15 (0.83-1.09) H 01/30/19 06:22 Fibrinogen > 500.0 mg/dL (238-498) H D 01/25/19 06:00 Problem List - Problems (1) Diabetic foot ulcer Code(s): E11.621 - TYPE 2 DIABETES MELLITUS WITH FOOT ULCER; L97.509 - NON- PRESSURE CHRONIC ULCER OTH PRT UNSP FOOT W UNSP SEVERITY (2) Arterial occlusion Code(s): I70.90 - UNSPECIFIED ATHEROSCLEROSIS (3) Diabetes type 2, uncontrolled Code(s): E11.65 - TYPE 2 DIABETES MELLITUS WITH HYPERGLYCEMIA (4) Hypertension Code(s): I10 - ESSENTIAL (PRIMARY) HYPERTENSION (5) CAD (coronary artery disease) Code(s): I25.10 - ATHSCL HEART DISEASE OF [place] CORONARY ARTERY W/O ANG PCTRS (6) HLD (hyperlipidemia) Code(s): E78.5 - HYPERLIPIDEMIA, UNSPECIFIED (7) PAD (peripheral artery disease) Code(s): I73.9 - PERIPHERAL VASCULAR DISEASE, UNSPECIFIED
[2019-01-31] MEDS: MORPHINE SULFATE 2 MG/ML VIAL IVPUSH PRN ×2 (02:04→05:44)
[2019-01-31] MEDS: INSULIN SLIDING SCALE (NOVOLOG) 1 VIAL SQ SCH ×4 (06:01→21:33)
--- NOTE | 2019-01-31 07:53 | PN ---
Progress Note, Physician Chief Complaint: Pt A&Ox3; lying in bed; now c/o moderate to severe pain from right trevizo to foot History of Present Illness: Pt is a 48-year-old black male with past medical history of DVT and right lower extremity arterial occlusion status post angiogram with TPA 08/28, s/p "small [place]" ? 2016-->coronary angiogram and stent,obesity, cigarettes, who presents to ER for evaluation of right lower leg pain worsening over the past week. Patient reports he feels his leg is cold which there is any came to the emergency department for evaluation. Patient ran out of rivaroxaban. He denies fevers, chills, shortness of breath, chest pain, abdominal pain, nausea, vomiting. - Current Medication List Current Medications: Active Medications Acetaminophen (Tylenol -) 650 mg PO Q6H PRN PRN Reason: FEVER Last Admin: 01/30/19 17:18 Dose: 650 mg Aspirin (Asa -) 81 mg PO DAILY [facility] Last Admin: 01/30/19 11:36 Dose: 81 mg Atorvastatin Calcium (Lipitor -) 40 mg PO HS [facility] Last Admin: 01/30/19 21:00 Dose: 40 mg Insulin Aspart (Novolog Vial Sliding Scale -) 1 vial SQ [facility]; Protocol Last Admin: 01/31/19 06:01 Dose: 4 units Lisinopril (Prinivil) 2.5 mg PO DAILY [facility] Last Admin: 01/30/19 11:36 Dose: 2.5 mg Metoprolol Tartrate (Lopressor -) 25 mg PO BID [facility] Last Admin: 01/30/19 21:00 Dose: 25 mg Morphine Sulfate (Morphine Sulfate) 2 mg IVPUSH Q4H PRN PRN Reason: PAIN LEVEL 7-10 Last Admin: 01/31/19 05:44 Dose: 2 mg Ondansetron HCl (Zofran Injection) 4 mg IVPUSH Q6H PRN PRN Reason: NAUSEA AND/OR VOMITING Promethazine HCl (Phenergan Injection -) 12.5 mg IVPB Q6H PRN PRN Reason: NAUSEA-FOR RESCUE AFTER 15 MIN Warfarin Sodium (Coumadin -) 7.5 mg PO DAILY@1800 [facility] Last Admin: 01/30/19 18:35 Dose: 7.5 mg - Objective Vital Signs: Vital Signs Temperature 98.2 F 01/31/19 05:57 Pulse Rate 112 H 01/31/19 05:57 Respiratory Rate 20 01/31/19 05:57 Blood Pressure 127/52 L 01/31/19 05:57 O2 Sat by Pulse Oximetry (%) 98 01/30/19 21:00 Constitutional: Yes: Obese Eyes: Yes: WNL HENT: Yes: WNL Cardiovascular: Yes: Regular Rate and Rhythm Respiratory: Yes: WNL Gastrointestinal: Yes: Soft, Abdomen, Obese ...Rectal Exam: Yes: Deferred Genitourinary: No: Anuria Breast(s): Yes: WNL Musculoskeletal: Yes: Joint Stiffness, Joint Swelling, Muscle Weakness Extremities: Yes: Cool Edema: Yes Edema: LLE: Trace, RLE: Trace Peripheral Pulses WNL: No Peripheral Pulses: Left Doralis Pedis: 1+, Right Dorsalis Pedis: 1+ Integumentary: Yes: Pressure Ulcer Wound/Incision: Yes: Dressing Dry and Intact Neurological: Yes: Alert, Oriented, Weakness Psychiatric: Yes: WNL Labs: CBC, BMP 01/30/19 06:22 01/30/19 06:22 INR, PTT INR 2.15 (0.83-1.09) H 01/30/19 06:22 Fibrinogen > 500.0 mg/dL (238-498) H D 01/25/19 06:00 Abnormal Lab Results 02/01/19 02/01/19 02/01/19 21:50 21:50 21:50 WBC 14.4 H Hgb 10.6 L Hct 32.5 L MCV 79.1 L MCH Plt Count 537 H D MPV 7.2 L Absolute Neuts (auto) Monocytes % PT with INR 19.70 H INR 1.66 H Fibrinogen > 500.0 H Anion Gap Random Glucose Calcium AST Albumin 02/01/19 02/02/19 02/02/19 21:50 02:00 03:00 WBC 14.1 H Hgb 10.8 L Hct 33.3 L MCV 78.9 L MCH 25.6 L Plt Count 588 H MPV 6.8 L Absolute Neuts (auto) Monocytes % PT with INR 23.70 H INR 1.99 H Fibrinogen Anion Gap Random Glucose 261 H Calcium 8.0 L AST Albumin 02/02/19 02/02/19 02/02/19 03:00 05:45 05:45 WBC 13.6 H Hgb 11.1 L Hct 33.7 L MCV 79.1 L MCH Plt Count 615 H MPV 7.0 L Absolute Neuts (auto) 9.8 H Monocytes % 11.2 H PT with INR 24.70 H INR 2.08 H Fibrinogen Anion Gap 7 L Random Glucose 313 H* Calcium AST Albumin 02/02/19 02/02/19 02/02/19 05:45 08:50 08:50 WBC 13.4 H Hgb 10.8 L Hct 32.7 L MCV 78.5 L MCH Plt Count 579 H MPV 6.7 L Absolute Neuts (auto) Monocytes % PT with INR 26.60 H INR 2.24 H Fibrinogen Anion Gap 7 L Random Glucose 294 H Calcium AST 45 H Albumin 2.2 L 02/02/19 08:50 WBC Hgb Hct MCV MCH Plt Count MPV Absolute Neuts (auto) Monocytes % PT with INR INR Fibrinogen Anion Gap 7 L Random Glucose 257 H Calcium AST Albumin - ....Imaging X-ray: Image Reviewed (foot) Problem List - Problems (1) H/O heart artery stent Assessment/Plan: Hx "small [place]" ? 2015-->coronary stent. S/p RLE angioplasty and stent. F/u lipids and keep LDL < 70 mg/dL. EKG: NSR: LAFB; anterolateral infarct (no significant changes). ECHO 01/26/19: difficult and limited study; grossly normal LVEF, with aortic root upper limits of normal. Code(s): Z95.5 - PRESENCE OF CORONARY ANGIOPLASTY IMPLANT AND GRAFT (2) History of heart attack Code(s): I25.2 - OLD MYOCARDIAL INFARCTION (3) Obesity Code(s): E66.9 - OBESITY, UNSPECIFIED (4) Smokes cigarettes Assessment/Plan: Pt to consider nicotine patch. Code(s): F17.210 - NICOTINE DEPENDENCE, CIGARETTES, UNCOMPLICATED (5) Sedentary lifestyle Code(s): Z91.89 - OTH PERSONAL RISK FACTORS, NOT ELSEWHERE CLASSIFIED (6) Arterial occlusion Code(s): I70.90 - UNSPECIFIED ATHEROSCLEROSIS (7) HLD (hyperlipidemia) Code(s): E78.5 - HYPERLIPIDEMIA, UNSPECIFIED (8) Diabetes type 2, uncontrolled Assessment/Plan: start ACEI for renal protection, HTN, CAD. Code(s): E11.65 - TYPE 2 DIABETES MELLITUS WITH HYPERGLYCEMIA (9) Hypertension Code(s): I10 - ESSENTIAL (PRIMARY) HYPERTENSION (10) PAD (peripheral artery disease) Assessment/Plan: s/p RLE angioplasty and stent today. Code(s): I73.9 - PERIPHERAL VASCULAR DISEASE, UNSPECIFIED (11) DVT (deep venous thrombosis) Assessment/Plan: On warfarin: INR now therapeutic. Code(s): I82.409 - ACUTE EMBOLISM AND THOMBOS UNSP DEEP VN UNSP LOWER EXTREMITY
--- NOTE | 2019-01-31 09:25 | PN ---
Progress Note, Physician Chief Complaint: cold right foot History of Present Illness: Patient is a 49 year old male with a significant past medical history of diabetes, CAD(s/p stents), HTN, presents to [facility] with c/o of a cold R foot. No change in sensations, no weakness of any part of the body, no facial drop, no prior episodes of similar pain in the past, no chest pain or SOB. - Current Medication List Current Medications: Active Medications Acetaminophen (Tylenol -) 650 mg PO Q6H PRN PRN Reason: FEVER Last Admin: 01/30/19 17:18 Dose: 650 mg Aspirin (Asa -) 81 mg PO DAILY COUNTS INCLUDE 234 BEDS AT THE [facility] Last Admin: 01/30/19 11:36 Dose: 81 mg Atorvastatin Calcium (Lipitor -) 40 mg PO HS COUNTS INCLUDE 234 BEDS AT THE [facility] Last Admin: 01/30/19 21:00 Dose: 40 mg Enoxaparin Sodium (Lovenox -) 120 mg SQ BID COUNTS INCLUDE 234 BEDS AT THE [facility] Stop: 02/01/19 09:59 Insulin Aspart (Novolog Vial Sliding Scale -) 1 vial SQ [facility] COUNTS INCLUDE 234 BEDS AT THE [facility]; Protocol Last Admin: 01/31/19 06:01 Dose: 4 units Lisinopril (Prinivil) 2.5 mg PO DAILY COUNTS INCLUDE 234 BEDS AT THE [facility] Last Admin: 01/30/19 11:36 Dose: 2.5 mg Metoprolol Tartrate (Lopressor -) 25 mg PO BID COUNTS INCLUDE 234 BEDS AT THE [facility] Last Admin: 01/30/19 21:00 Dose: 25 mg Morphine Sulfate (Morphine Sulfate) 2 mg IVPUSH Q4H PRN PRN Reason: PAIN LEVEL 7-10 Last Admin: 01/31/19 05:44 Dose: 2 mg Ondansetron HCl (Zofran Injection) 4 mg IVPUSH Q6H PRN PRN Reason: NAUSEA AND/OR VOMITING Promethazine HCl (Phenergan Injection -) 12.5 mg IVPB Q6H PRN PRN Reason: NAUSEA-FOR RESCUE AFTER 15 MIN - Objective Vital Signs: Vital Signs Temperature 98.2 F 01/31/19 05:57 Pulse Rate 112 H 01/31/19 05:57 Respiratory Rate 01/31/19 05:57 Blood Pressure 127/52 L 01/31/19 05:57 O2 Sat by Pulse Oximetry (%) 98 01/30/19 21:00 Constitutional: Yes: Well Nourished, No Distress, Calm Eyes: Yes: WNL HENT: Yes: Atraumatic Neck: Yes: WNL Cardiovascular: Yes: Regular Rate and Rhythm Respiratory: Yes: Regular Gastrointestinal: Yes: Normal Bowel Sounds ...Rectal Exam: Yes: Deferred Extremities: Yes: Cold, Cool Edema: RUE: Trace Peripheral Pulses WNL: No Neurological: Yes: Alert, Oriented Labs: CBC, BMP 01/30/19 06:22 01/30/19 06:22 INR, PTT INR 2.15 (0.83-1.09) H 01/30/19 06:22 Fibrinogen > 500.0 mg/dL (238-498) H D 01/25/19 06:00 Problem List - Problems (1) Arterial occlusion Assessment/Plan: Duplex ultrasound revealed right popliteal, and posterior tibial artery occlusion. CTA with runoff reveals occlusive thrombus in the right popliteal artery, with nonocclusive thrombus in distal portion of right superficial femoral artery. S/P RLE angiogram, and infusion of thrombolysis(Alteplase Cont asa. Hold Coumadin today, administer Lovenox 120mg BID, hold after tonight's dose Monitor PT/INR Code(s): I70.90 - UNSPECIFIED ATHEROSCLEROSIS (2) CAD (coronary artery disease) Assessment/Plan: Cont asa Code(s): I25.10 - ATHSCL HEART DISEASE OF [place] CORONARY ARTERY W/O ANG PCTRS (3) Diabetes type 2, uncontrolled Assessment/Plan: Cont sliding scale w/ coverage Code(s): E11.65 - TYPE 2 DIABETES MELLITUS WITH HYPERGLYCEMIA (4) Hypertension Assessment/Plan: BP stable Cont metoprolol Code(s): I10 - ESSENTIAL (PRIMARY) HYPERTENSION (5) HLD (hyperlipidemia) Assessment/Plan: Cont lipitor Code(s): E78.5 - HYPERLIPIDEMIA, UNSPECIFIED (6) Prophylactic measure Assessment/Plan: lovenox tonight, then hold anticoagulation ivf after midnight npo after midnight full code Code(s): Z29.9 - ENCOUNTER FOR PROPHYLACTIC MEASURES, UNSPECIFIED Visit type - Emergency Visit Emergency Visit: Yes ED Registration Date: 01/24/19 Care time: The patient presented to the Emergency Department on the above date and was hospitalized for further evaluation of their emergent condition. - New Patient This patient is new to me today: Yes Date on this admission: 01/31/19 - Critical Care Critical Care patient: No - Discharge Referral Referred to [facility] No
[2019-01-31] MEDS ORDERED: oxyCODONE HCL 5 MG TABLET PO PRN (09:27)
--- NOTE | 2019-01-31 09:45 | PN ---
Progress Note, Physician History of Present Illness: stable leg starting to become warm - Current Medication List Current Medications: Active Medications Acetaminophen (Tylenol -) 650 mg PO Q6H PRN PRN Reason: FEVER Last Admin: 01/30/19 17:18 Dose: 650 mg Aspirin (Asa -) 81 mg PO DAILY [facility] Last Admin: 01/30/19 11:36 Dose: 81 mg Atorvastatin Calcium (Lipitor -) 40 mg PO HS [facility] Last Admin: 01/30/19 21:00 Dose: 40 mg Docusate Sodium (Colace -) 100 mg PO TID [facility] Enoxaparin Sodium (Lovenox -) 120 mg SQ BID [facility] Stop: 02/01/19 09:59 Insulin Aspart (Novolog Vial Sliding Scale -) 1 vial SQ ACHS [facility]; Protocol Last Admin: 01/31/19 06:01 Dose: 4 units Lisinopril (Prinivil) 2.5 mg PO DAILY [facility] Last Admin: 01/30/19 11:36 Dose: 2.5 mg Metoprolol Tartrate (Lopressor -) 25 mg PO BID [facility] Last Admin: 01/30/19 21:00 Dose: 25 mg Ondansetron HCl (Zofran Injection) 4 mg IVPUSH Q6H PRN PRN Reason: NAUSEA AND/OR VOMITING Oxycodone HCl (Roxicodone -) 5 mg PO Q6H PRN PRN Reason: PAIN LEVEL 4 - 6 Oxycodone HCl (Roxicodone -) 10 mg PO Q6H PRN PRN Reason: PAIN LEVEL 7 - 10 Polyethylene Glycol (Miralax (For Daily Use) -) 17 gm PO DAILY [facility] Promethazine HCl (Phenergan Injection -) 12.5 mg IVPB Q6H PRN PRN Reason: NAUSEA-FOR RESCUE AFTER 15 MIN - Objective Vital Signs: Vital Signs Temperature 98.2 F 01/31/19 05:57 Pulse Rate 112 H 01/31/19 05:57 Respiratory Rate 20 01/31/19 05:57 Blood Pressure 127/52 L 01/31/19 05:57 O2 Sat by Pulse Oximetry (%) 98 01/30/19 21:00 Constitutional: Yes: No Distress, Calm Cardiovascular: Yes: S1, S2 Respiratory: Yes: Regular, CTA Bilaterally Gastrointestinal: Yes: Normal Bowel Sounds, Soft Musculoskeletal: Yes: WNL Extremities: Yes: Other Neurological: Yes: Alert, Oriented Psychiatric: Yes: Alert, Oriented Labs: CBC, BMP 01/30/19 06:22 01/30/19 06:22 INR, PTT INR 2.15 (0.83-1.09) H 01/30/19 06:22 Fibrinogen > 500.0 mg/dL (238-498) H D 01/25/19 06:00 Assessment/Plan Problem List - Problems (1) Arterial occlusion Code(s): I70.90 - UNSPECIFIED ATHEROSCLEROSIS (2) CAD (coronary artery disease) Code(s): I25.10 - ATHSCL HEART DISEASE OF [place] CORONARY ARTERY W/O ANG PCTRS (3) H/O heart artery stent Code(s): Z95.5 - PRESENCE OF CORONARY ANGIOPLASTY IMPLANT AND GRAFT (4) HLD (hyperlipidemia) Code(s): E78.5 - HYPERLIPIDEMIA, UNSPECIFIED (5) Hematuria Code(s): R31.9 - HEMATURIA, UNSPECIFIED (6) Obesity Code(s): E66.9 - OBESITY, UNSPECIFIED (7) PAD (peripheral artery disease) Code(s): I73.9 - PERIPHERAL VASCULAR DISEASE, UNSPECIFIED (8) Right leg pain Code(s): M79.604 - PAIN IN RIGHT LEG (9) Smokes cigarettes Code(s): F17.210 - NICOTINE DEPENDENCE, CIGARETTES, UNCOMPLICATED (10) Diabetes type 2, uncontrolled Code(s): E11.65 - TYPE 2 DIABETES MELLITUS WITH HYPERGLYCEMIA (11) Hypertension Code(s): I10 - ESSENTIAL (PRIMARY) HYPERTENSION Assessment/Plan 49 y.o. male with PMH of DVT, RLE arterial occlusion s/p TPA (has not been taking Xarelto due to lack of insurance coverage), obesity, CAD s/p stent, CHF, HTN, HLD, DM presented with c/o severe RLE pain x 1 wk and foot feeling cold. Noted to have Rt popliteal and tibial arterial occlusion and initially underwent thrombolysis but then subsequently had SFA angioplasty with stent and tibial artery angioplasty on 01/25/19. Pt noted to have increasing wbc count since yesterday and mild temp elevation to 99.3F. +recent hematuria Leukocytosis RLE popliteal and tibial artery occlusion s/p angioplasty/stent Hematuria Hx of RLE arterial occlusion s/p TPA CAD s/p stent CHF DM HTN HLD Obesity plan continue current mgmt monitor the leg
[2019-01-31] MEDS: LISINOPRIL 5 MG TABLET (FP) PO SCH (11:10)
[2019-01-31] MEDS: ASPIRIN 81 MG CHEWABLE TABLETS PO SCH (11:10)
[2019-01-31] MEDS: METOPROLOL TARTRATE 25 MG TABLET (FP) PO SCH ×2 (11:11→21:33)
[2019-01-31] MEDS: POLYETHYLENE GLYCOL 3350 119 GM BTL PO SCH (11:13)
--- NOTE | 2019-01-31 12:10 | PN ---
Progress Note (short form) - Note Progress Note: POD #6 s/p RLE angiogram, SFA angioplasty with stent placement, tibial artery angioplasty Pt seen and examined. Reports no change in his R foot since yesterday. Continues to experience pain mainly when sitting on the edge of the bed with his foot in a dependent position. Motor/sensory deficits remain unchanged. Tolerating PO, voiding. Denies cp/sob, n/v/d. Vital Signs Temp 98 F 01/31/19 10:00 Pulse 99 H 01/31/19 10:00 Resp 18 01/31/19 10:00 BP 129/82 01/31/19 10:00 Pulse Ox 98 01/31/19 09:00 Intake & Output 01/30/19 01/31/19 01/31/19 23:59 11:59 23:59 Intake Total 500 200 Output Total 1200 700 Balance -700 -500 Intake: IV 0 SL 0 Oral 500 200 Output: Urine 1200 700 Void 1200 700 Other: Voiding Method Bedside Commode Urinal Bowel Movement No CBC, BMP 01/30/19 06:22 01/30/19 06:22 Gen: alert. nad. LE'S: R foot cool to touch to midfoot, some discoloration noted at distal tips of toes. 4th toe medial aspect with approx 1x1cm circular ulcer with scant bleeding noted, no erythema or drainage. +TTP of foot. Decreased motor (able to wiggle toes slightly) and sensory deficits both stable from prior. No other ulcerations noted, trace edema of foot. No ulcerations noted in L foot, l foot warm, well perfused. Vasc: RLE with biphasic PT (no DP-unchanged from prior) A/P: 48 y/o M w. PMHx PAD s/p R LE popliteal arterial occlusion (07/2017 s/p RLE angiogram/maria guadal[employer] and TPA infusion), coronary artery disease s/p stents, hypertension, IDDM, admitted 01/23 after presenting with a cool RLE, pt noncompliant and found to have R pop occlusion now POD 6, s/p POD #6 s/p RLE angiogram, SFA angioplasty with stent placement, tibial artery angioplasty. R foot without any signs of improvement, INR >2 yesterday. -Plan for RLE angiogram, possible plasty/stent tomorrow, 8/[address] Chandler -Hold Coumadin today, administer Lovenox 120mg BID, hold after tonight's dose -Labs pending, will need AM labs as well (cbc, chem, coags- if INR remains elevated may need vit K) -Betadine solution to toe ulcer, keep toes with dry gauze -Pain control -OOB as tolerated -Continue ASA 81mg qd and statin -NPO after midnight, IVF -Will f/u labs d/w attending Dr Chandler
[2019-01-31] MEDS: oxyCODONE HCL 5 MG TABLET PO PRN ×2 (12:23→20:50)
[2019-01-31 12:58] LABS: BASO % 0.4 % (0-2.0); EOS % 2.2 % (0-4.5); HEMATOCRIT 33.4 % (35.4-49); LYMPH % 17.8 % (8-40); MCHC 32.9 g/dl (32.0-35.9); MEAN PLT VOLUME 6.9 fl (7.5-11.1); MONO % 10.6 % (3.8-10.2); PLATELET COUNT 579 K/MM3 (134-434); RBC 4.22 M/mm3 (4.00-5.60); RDW 14.2 % (11.9-15.9); WHITE BLOOD COUNT 13.4 K/mm3 (4.0-10.0)
[2019-01-31 13:14] LABS: INR 2.15 (0.83-1.09); PROTHROMBIN TIME (PATIENT) 25.6 SEC (9.7-13.0)
[2019-01-31 13:24] LABS: ALBUMIN 2.3 g/dl (3.4-5.0); BILIRUBIN,TOTAL 0.2 mg/dL (0.2-1); BLOOD UREA NITROGEN 11.3 mg/dL (7-18); CALCIUM 8.6 mg/dL (8.5-10.1); CREATININE 1.1 mg/dL (0.55-1.3); POTASSIUM 4.2 mmol/L (3.5-5.1); TOT PROT 7.1 g/dl (6.4-8.2)
[2019-01-31] MEDS ORDERED: PT OWN MED DRAWER 7, Y5N ONE (14:01)
[2019-01-31] MEDS: ENOXAPARIN NA (PORCINE) 120 MG/0.8 ML DISP.SYRIN SQ SCH ×2 (14:04→21:33)
[2019-01-31] MEDS: DOCUSATE SODIUM 100 MG CAPSULE (FP) PO SCH ×2 (14:05→21:33)
[2019-01-31] MEDS: ATORVASTATIN CA 40 MG TABLET (FP) PO SCH (21:33)
[2019-02-01] MEDS: oxyCODONE HCL 5 MG TABLET PO PRN (03:49)
[2019-02-01] MEDS: DOCUSATE SODIUM 100 MG CAPSULE (FP) PO SCH ×2 (05:08→15:20)
[2019-02-01] MEDS: INSULIN SLIDING SCALE (NOVOLOG) 1 VIAL SQ SCH ×2 (06:10→14:15)
[2019-02-01] MEDS: LISINOPRIL 5 MG TABLET (FP) PO SCH (10:51)
[2019-02-01] MEDS: ASPIRIN 81 MG CHEWABLE TABLETS PO SCH (10:51)
[2019-02-01] MEDS: POLYETHYLENE GLYCOL 3350 119 GM BTL PO SCH (10:52)
[2019-02-01] MEDS: METOPROLOL TARTRATE 25 MG TABLET (FP) PO SCH ×2 (10:52→23:30)
[2019-02-01] MEDS ORDERED: HEPARIN NA (PORCINE) 5,000 UNITS/ML 1ML VIAL ONE ×3 (11:05→14:14)
--- NOTE | 2019-02-01 11:44 | PN ---
Progress Note, Physician History of Present Illness: Patient is a 49 year old male with a significant past medical history of diabetes, CAD(s/p stents), HTN, presents to [facility] with c/o of a cold R foot. No change in sensations, no weakness of any part of the body, no facial drop, no prior episodes of similar pain in the past, no chest pain or SOB. - Current Medication List Current Medications: Active Medications Acetaminophen (Tylenol -) 650 mg PO Q6H PRN PRN Reason: FEVER Last Admin: 01/30/19 17:18 Dose: 650 mg Aspirin (Asa -) 81 mg PO DAILY [facility] Last Admin: 02/01/19 10:51 Dose: Not Given Atorvastatin Calcium (Lipitor -) 40 mg PO HS [facility] Last Admin: 01/31/19 21:33 Dose: 40 mg Docusate Sodium (Colace -) 100 mg PO TID [facility] Last Admin: 02/01/19 05:08 Dose: Not Given Sodium Chloride (Normal Saline -) 1,000 mls @ 75 mls/hr IV ASDIR [facility] Last Admin: 02/01/19 00:46 Dose: 75 mls/hr Insulin Aspart (Novolog Vial Sliding Scale -) 1 vial SQ ACHS [facility]; Protocol Last Admin: 02/01/19 06:10 Dose: Not Given Lisinopril (Prinivil) 2.5 mg PO DAILY [facility] Last Admin: 02/01/19 10:51 Dose: 2.5 mg Metoprolol Tartrate (Lopressor -) 25 mg PO BID [facility] Last Admin: 02/01/19 10:52 Dose: 25 mg Ondansetron HCl (Zofran Injection) 4 mg IVPUSH Q6H PRN PRN Reason: NAUSEA AND/OR VOMITING Oxycodone HCl (Roxicodone -) 5 mg PO Q6H PRN PRN Reason: PAIN LEVEL 4 - 6 Oxycodone HCl (Roxicodone -) 10 mg PO Q6H PRN PRN Reason: PAIN LEVEL 7 - 10 Last Admin: 02/01/19 03:49 Dose: 10 mg Polyethylene Glycol (Miralax (For Daily Use) -) 17 gm PO DAILY [facility] Last Admin: 02/01/19 10:52 Dose: Not Given Promethazine HCl (Phenergan Injection -) 12.5 mg IVPB Q6H PRN PRN Reason: NAUSEA-FOR RESCUE AFTER 15 MIN - Objective Vital Signs: Vital Signs Temperature 98.8 F 02/01/19 06:00 Pulse Rate 94 H 02/01/19 06:00 Respiratory Rate 18 02/01/19 06:00 Blood Pressure 140/66 02/01/19 06:00 O2 Sat by Pulse Oximetry (%) 98 01/31/19 21:00 Constitutional: Yes: Well Nourished, No Distress Eyes: Yes: Conjunctiva Clear HENT: Yes: Atraumatic Neck: Yes: Supple Cardiovascular: Yes: Regular Rate and Rhythm Respiratory: Yes: Regular, CTA Bilaterally Gastrointestinal: Yes: Normal Bowel Sounds ...Rectal Exam: Yes: Deferred Extremities: Yes: Cool Edema: Yes Edema: LLE: 1+ Integumentary: Yes: Erythema Labs: CBC, BMP 01/31/19 12:30 01/31/19 12:30 INR, PTT INR 2.15 (0.83-1.09) H 01/31/19 12:30 Fibrinogen > 500.0 mg/dL (238-498) H D 01/25/19 06:00 Problem List - Problems (1) Arterial occlusion Assessment/Plan: Duplex ultrasound revealed right popliteal, and posterior tibial artery occlusion. CTA with runoff reveals occlusive thrombus in the right popliteal artery, with nonocclusive thrombus in distal portion of right superficial femoral artery. S/P RLE angiogram, and infusion of thrombolysis(Alteplase RLE ischemia. s/p RLE angiogram today. Monitor PT/INR on a heparin drip post procedure Code(s): I70.90 - UNSPECIFIED ATHEROSCLEROSIS (2) CAD (coronary artery disease) Assessment/Plan: Cont asa Code(s): I25.10 - ATHSCL HEART DISEASE OF [place] CORONARY ARTERY W/O ANG PCTRS (3) Diabetes type 2, uncontrolled Assessment/Plan: Cont sliding scale w/ coverage Code(s): E11.65 - TYPE 2 DIABETES MELLITUS WITH HYPERGLYCEMIA (4) Hypertension Assessment/Plan: BP stable Cont metoprolol Code(s): I10 - ESSENTIAL (PRIMARY) HYPERTENSION (5) HLD (hyperlipidemia) Assessment/Plan: Cont lipitor Code(s): E78.5 - HYPERLIPIDEMIA, UNSPECIFIED (6) Prophylactic measure Assessment/Plan: diabetic diet on heparin drip full code Code(s): Z29.9 - ENCOUNTER FOR PROPHYLACTIC MEASURES, UNSPECIFIED Visit type - Emergency Visit Emergency Visit: Yes ED Registration Date: 01/24/19 Care time: The patient presented to the Emergency Department on the above date and was hospitalized for further evaluation of their emergent condition. - New Patient This patient is new to me today: No - Critical Care Critical Care patient: No - Discharge Referral Referred to [facility] No
[2019-02-01] MEDS ORDERED: MORPHINE SULFATE 2 MG/ML VIAL IVPUSH ONE (12:15)
[2019-02-01] MEDS ORDERED: LIDOCAINE HCL 1%, 10 MG/ML (20ML VIAL) ONE (12:26)
[2019-02-01] MEDS ORDERED: LIDOCAINE HCL/PF 2% SDV 5ML VIAL ONE (12:36)
[2019-02-01] MEDS ORDERED: SODIUM CHLORIDE 0.9% P/F 10 ML VIAL IJ ONE (12:36)
[2019-02-01] MEDS ORDERED: ceFAZolin SODIUM 1 GM VIAL ONE (12:36)
[2019-02-01] MEDS ORDERED: PROPOFOL 20 ML ONE ×2 (12:38)
[2019-02-01] MEDS ORDERED: MIDAZOLAM HCL 2 MG/2 ML SINGLE DOSE VIAL ONE ×3 (12:38→14:36)
[2019-02-01 12:50] LABS: INR 1.79 (0.83-1.09); PROTHROMBIN TIME (PATIENT) 21.3 SEC (9.7-13.0)
[2019-02-01 12:54] LABS: BASO % 0.8 % (0-2.0); HEMATOCRIT 34.6 % (35.4-49); HEMOGLOBIN 11.5 GM/dL (11.7-16.9); MCH 26.1 pg (25.7-33.7); MCHC 33.3 g/dl (32.0-35.9); MEAN CELL VOLUME 78.4 fl (80-96); MEAN PLT VOLUME 7.1 fl (7.5-11.1); MONO % 10.3 % (3.8-10.2); NEUT % 69.9 % (42.8-82.8); PLATELET COUNT 686 K/MM3 (134-434); RBC 4.41 M/mm3 (4.00-5.60); RDW 14.2 % (11.9-15.9); WHITE BLOOD COUNT 13.8 K/mm3 (4.0-10.0)
[2019-02-01 13:03] LABS: ALBUMIN 2.4 g/dl (3.4-5.0); BILIRUBIN,TOTAL 0.2 mg/dL (0.2-1); BLOOD UREA NITROGEN 14.6 mg/dL (7-18); MAGNESIUM 2.1 mg/dL (1.8-2.4); POTASSIUM 4.3 mmol/L (3.5-5.1); TOT PROT 7.5 g/dl (6.4-8.2)
[2019-02-01] MEDS ORDERED: LIDOCAINE HCL 1%, 10 MG/ML (20ML VIAL) INF ONE ×2 (13:30)
[2019-02-01] MEDS ORDERED: ceFAZolin SODIUM 1 GM VIAL IVPB ONE (13:30)
--- NOTE | 2019-02-01 13:50 | PN ---
Progress Note, Physician History of Present Illness: foot continues to be cold plan for taking patient to or - Current Medication List Current Medications: Active Medications Acetaminophen (Tylenol -) 650 mg PO Q6H PRN PRN Reason: FEVER Last Admin: 01/30/19 17:18 Dose: 650 mg Aspirin (Asa -) 81 mg PO DAILY [facility] Last Admin: 02/01/19 10:51 Dose: Not Given Atorvastatin Calcium (Lipitor -) 40 mg PO HS [facility] Last Admin: 01/31/19 21:33 Dose: 40 mg Docusate Sodium (Colace -) 100 mg PO TID [facility] Last Admin: 02/01/19 05:08 Dose: Not Given Sodium Chloride (Normal Saline -) 1,000 mls @ 75 mls/hr IV ASDIR [facility] Last Admin: 02/01/19 00:46 Dose: 75 mls/hr Insulin Aspart (Novolog Vial Sliding Scale -) 1 vial SQ [facility]; Protocol Last Admin: 02/01/19 06:10 Dose: Not Given Insulin Detemir (Levemir Vial) 5 units SQ [facility] Lisinopril (Prinivil) 2.5 mg PO DAILY [facility] Last Admin: 02/01/19 10:51 Dose: 2.5 mg Metoprolol Tartrate (Lopressor -) 25 mg PO BID [facility] Last Admin: 02/01/19 10:52 Dose: 25 mg Ondansetron HCl (Zofran Injection) 4 mg IVPUSH Q6H PRN PRN Reason: NAUSEA AND/OR VOMITING Oxycodone HCl (Roxicodone -) 5 mg PO Q6H PRN PRN Reason: PAIN LEVEL 4 - 6 Oxycodone HCl (Roxicodone -) 10 mg PO Q6H PRN PRN Reason: PAIN LEVEL 7 - 10 Last Admin: 02/01/19 03:49 Dose: 10 mg Polyethylene Glycol (Miralax (For Daily Use) -) 17 gm PO DAILY [facility] Last Admin: 02/01/19 10:52 Dose: Not Given Promethazine HCl (Phenergan Injection -) 12.5 mg IVPB Q6H PRN PRN Reason: NAUSEA-FOR RESCUE AFTER 15 MIN - Objective Vital Signs: Vital Signs Temperature 98.4 F 02/01/19 10:00 Pulse Rate 101 H 02/01/19 10:00 Respiratory Rate 18 02/01/19 10:00 Blood Pressure 133/90 02/01/19 10:00 O2 Sat by Pulse Oximetry (%) 98 02/01/19 09:00 Constitutional: Yes: No Distress, Calm Cardiovascular: Yes: S1, S2 Respiratory: Yes: Regular, CTA Bilaterally Gastrointestinal: Yes: Normal Bowel Sounds, Soft Musculoskeletal: Yes: WNL Extremities: Yes: WNL Neurological: Yes: Alert, Oriented Psychiatric: Yes: Alert, Oriented Labs: CBC, BMP 02/01/19 12:19 02/01/19 12:19 INR, PTT INR 1.79 (0.83-1.09) H 02/01/19 12:19 Fibrinogen > 500.0 mg/dL (238-498) H D 01/25/19 06:00 Assessment/Plan Assessment/Plan Problem List - Problems (1) Arterial occlusion Code(s): I70.90 - UNSPECIFIED ATHEROSCLEROSIS (2) CAD (coronary artery disease) Code(s): I25.10 - ATHSCL HEART DISEASE OF [place] CORONARY ARTERY W/O ANG PCTRS (3) H/O heart artery stent Code(s): Z95.5 - PRESENCE OF CORONARY ANGIOPLASTY IMPLANT AND GRAFT (4) HLD (hyperlipidemia) Code(s): E78.5 - HYPERLIPIDEMIA, UNSPECIFIED (5) Hematuria Code(s): R31.9 - HEMATURIA, UNSPECIFIED (6) Obesity Code(s): E66.9 - OBESITY, UNSPECIFIED (7) PAD (peripheral artery disease) Code(s): I73.9 - PERIPHERAL VASCULAR DISEASE, UNSPECIFIED (8) Right leg pain Code(s): M79.604 - PAIN IN RIGHT LEG (9) Smokes cigarettes Code(s): F17.210 - NICOTINE DEPENDENCE, CIGARETTES, UNCOMPLICATED (10) Diabetes type 2, uncontrolled Code(s): E11.65 - TYPE 2 DIABETES MELLITUS WITH HYPERGLYCEMIA (11) Hypertension Code(s): I10 - ESSENTIAL (PRIMARY) HYPERTENSION Assessment/Plan 49 y.o. male with PMH of DVT, RLE arterial occlusion s/p TPA (has not been taking Xarelto due to lack of insurance coverage), obesity, CAD s/p stent, CHF, HTN, HLD, DM presented with c/o severe RLE pain x 1 wk and foot feeling cold. Noted to have Rt popliteal and tibial arterial occlusion and initially underwent thrombolysis but then subsequently had SFA angioplasty with stent and tibial artery angioplasty on 01/25/19. Pt noted to have increasing wbc count since yesterday and mild temp elevation to 99.3F. +recent hematuria Leukocytosis RLE popliteal and tibial artery occlusion s/p angioplasty/stent Hematuria Hx of RLE arterial occlusion s/p TPA CAD s/p stent CHF DM HTN HLD Obesity plan as per vascular for or today rest as per the team
[2019-02-01] MEDS ORDERED: HEPARIN INFUSION - 25,000 UNITS/500 ML INFUS.BAG IVPB ONE ×2 (14:20→14:30)
[2019-02-01] MEDS ORDERED: ALTEPLASE (CATHFLO) 15 MG in SODIUM CHLORIDE 150 ML CVP ONE (14:30)
[2019-02-01] MEDS ORDERED: HEPARIN SOD,PORK IN 0.45% NACL 25,000 UNITS/500 ML INFUS.BAG IVPB ONE ×2 (14:30→18:23)
--- NOTE | 2019-02-01 15:10 | PN ---
Progress Note (short form) - Note Progress Note: Vascular Surgery Pt seen and examined. Angiogram done today. Distal sfa, popliteal artery, TP trunk with clot. Posterior tibial artery runoff. TPA started for lysis. Will need TPA check herbie. Morgan Chandler DO Problem List - Problems (1) Arterial occlusion Code(s): I70.90 - UNSPECIFIED ATHEROSCLEROSIS (2) Right leg pain Code(s): M79.604 - PAIN IN RIGHT LEG
[2019-02-01] MEDS ORDERED: HYDROmorphone HCl 2 MG/ML VIAL ONE ×2 (15:16→16:55)
--- NOTE | 2019-02-01 15:17 | OP ---
Operative Note - Note: Operative Date: 02/01/19 Pre-Operative Diagnosis: RLE ischemia Operation: Aortagram, RLE angiogram, infusion of TPA Findings: SFA, popliteal artery, tp trunk thrombosis Post-Operative Diagnosis: Same as Pre-op Surgeon: Morgan Chandler Anesthesia: Fractional Estimated Blood Loss (mls): 30 Operative Report Dictated: Yes
[2019-02-01] MEDS: HYDROmorphone HCl 2 MG/ML VIAL IVPUSH ONE ×8 (15:25→18:10)
[2019-02-01] MEDS ORDERED: PT OWN MED DRAWER 7, Y5N ONE (15:38)
[2019-02-01] MEDS ORDERED: PROMETHAZINE HCL 25 MG/1 ML VIAL IVPUSH PRN ×2 (17:02→18:23)
[2019-02-01] MEDS ORDERED: ONDANSETRON 4 MG/2 ML VIAL IVPUSH PRN ×3 (17:02→21:29)
[2019-02-01] MEDS ORDERED: LACTATED RINGERS SOLUTION 1,000 ML IV SCH (17:15)
[2019-02-01] MEDS ORDERED: oxyCODONE HCL 5 MG TABLET PO PRN ×2 (18:23)
[2019-02-01] MEDS ORDERED: ACETAMINOPHEN 325 MG TABLET (FP) PO PRN (18:23)
[2019-02-01] MEDS ORDERED: SODIUM CHLORIDE 1,000 ML IV SCH ×2 (18:23)
[2019-02-01] MEDS ORDERED: oxyCODONE HCL 5 MG TABLET ONE (19:12)
[2019-02-01] MEDS ORDERED: PROMETHAZINE HCL 25 MG/1 ML VIAL ONE (19:21)
[2019-02-01] MEDS ORDERED: HYDROmorphone *PCA* 10MG/50ML DISP.SYRIN ONE (19:45)
[2019-02-01] MEDS: LACTATED RINGERS SOLUTION 1,000 ML IV SCH (20:00)
--- NOTE | 2019-02-01 20:13 | DS ---
Physical Exam: SUBJECTIVE: Patient seen and examined OBJECTIVE: Vital Signs Period Temp Pulse Resp BP Sys/Miller Pulse Ox Last 24 Hr 98 F-99.0 F 92-106 14-22 132-176/66-101 98-100 PHYSICAL EXAM GENERAL: The patient is awake, alert, and fully oriented, in no acute distress. HEAD: Normal with no signs of trauma. EYES: PERRL, extraocular movements intact, sclera anicteric, conjunctiva clear. ENT: Ears normal, nares patent, oropharynx clear without exudates, moist mucous membranes. NECK: Trachea midline, full range of motion, supple. LUNGS: Breath sounds equal, clear to auscultation bilaterally, no wheezes, no crackles, no accessory muscle use. HEART: Regular rate and rhythm, S1, S2 without murmur, rub or gallop. ABDOMEN: Soft, nontender, nondistended, normoactive bowel sounds, no guarding, no rebound, no hepatosplenomegaly, no masses. EXTREMITIES: 2+ pulses, warm, well-perfused, no edema. NEUROLOGICAL: Cranial nerves II through XII grossly intact. Normal speech, gait not observed. PSYCH: Normal mood, normal affect. SKIN: Warm, dry, normal turgor, no rashes or lesions noted. LABS Laboratory Results - last 24 hr 01/31/19 02/01/19 02/01/19 21:32 05:44 12:16 WBC RBC Hgb Hct MCV MCH MCHC RDW Plt Count MPV Absolute Neuts (auto) Neutrophils % Lymphocytes % Monocytes % Eosinophils % Basophils % Nucleated RBC % PT with INR INR Sodium Potassium Chloride Carbon Dioxide Anion Gap BUN Creatinine Est GFR (CKD-EPI)AfAm Est GFR (CKD-EPI)NonAf POC Glucometer 298 298 269 Random Glucose Calcium Magnesium Total Bilirubin AST ALT Alkaline Phosphatase Total Protein Albumin 02/01/19 02/01/19 02/01/19 12:19 12:19 12:19 WBC 13.8 H RBC 4.41 Hgb 11.5 L Hct 34.6 L MCV 78.4 L MCH 26.1 MCHC 33.3 RDW 14.2 Plt Count 686 H MPV 7.1 L Absolute Neuts (auto) 9.7 H Neutrophils % 69.9 Lymphocytes % 17.0 Monocytes % 10.3 H Eosinophils % 2.0 Basophils % 0.8 Nucleated RBC % 0 PT with INR 21.30 H INR 1.79 H Sodium 139 Potassium 4.3 Chloride 101 Carbon Dioxide 29 Anion Gap 9 BUN 14.6 Creatinine 1.0 Est GFR (CKD-EPI)AfAm 102.69 Est GFR (CKD-EPI)NonAf 88.61 POC Glucometer Random Glucose 262 H Calcium 9.0 Magnesium 2.1 Total Bilirubin 0.2 AST 9 L ALT 15 Alkaline Phosphatase 99 Total Protein 7.5 Albumin 2.4 L HOSPITAL COURSE: Date of Admission:01/24/19 Date of Discharge: 02/01/19 Discharge Summary Reason For Visit: OCCLUSION OF ARTERY Current Active Problems Arterial occlusion (Acute) CAD (coronary artery disease) (Acute) DVT (deep venous thrombosis) (Acute) Diabetic foot ulcer (Acute) H/O heart artery stent (Acute) HLD (hyperlipidemia) (Acute) Hematuria (Acute) History of heart attack (Acute) Obesity (Acute) PAD (peripheral artery disease) (Acute) Prophylactic measure (Acute) Right leg pain (Acute) Sedentary lifestyle (Acute) Smokes cigarettes (Acute) Condition: Fair - Instructions - Home Medications Comprehensive Discharge Medication List: Ambulatory Orders Aspirin [ASA -] 81 mg PO DAILY #30 tab.chew 09/22/17 Atorvastatin Ca [Lipitor] 40 mg PO HS #30 tablet 09/22/17 Glyburide [Micronase -] 5 mg PO DAILY@0700 #30 tablet 09/22/17 Metoprolol Tartrate [Lopressor -] 25 mg PO BID #30 tablet 09/22/17 Insulin Glargine,Hum.rec.anlog [Lantus Solostar PEN (NF)] 0 units SQ BID Rivaroxaban [Xarelto -] 20 mg PO DAILY 01/24/19 - Discharge Referral Referred to [facility] No ATTENDING PHYSICIAN STATEMENT I saw and evaluated the patient. I reviewed the resident's note and discussed the case with the resident. I agree with the resident's findings and plan as documented. SUBJECTIVE: OBJECTIVE: ASSESSMENT AND PLAN:
--- NOTE | 2019-02-01 20:15 | CONSULT ---
Consultation: ). HISTORY OF PRESENT ILLNESS: The patient is a 49 year old male with a PMH of RLE popliteal arterial occlusion (07/2017 s/p RLE angiogram and TPA infusion), coronary artery disease s/p stents, hypertension, diabetes mellitus, presented to our ED on January 23 with complaint of cool and painful right lower extremity. At that time patient noted insurance difficulties prevented him from adherence to his prescribed Xarelto regimen. CTA w/runoff showed occlusive thrombus in the right popliteal artery, with nonocclusive thrombus in distal portion of right superficial femoral artery. On 01/25 patient underwent RLE angiogram with TPA infusion with subsequent stay in the ICU and transfer to medical floors. Patient subsequently began to c/o a a cold R foot and was started on TPA with angiogram today. REVIEW OF SYSTEMS: RLE pain CONSTITUTIONAL: Absent: fever, chills, diaphoresis, generalized weakness, malaise, loss of appetite, weight change HEENT: Absent: rhinorrhea, nasal congestion, throat pain, throat swelling, difficulty swallowing, mouth swelling, ear pain, eye pain, visual changes CARDIOVASCULAR: Absent: chest pain, syncope, palpitations, irregular heart rate, lightheadedness , peripheral edema RESPIRATORY: Absent: cough, shortness of breath, dyspnea with exertion, orthopnea, wheezing, stridor, hemoptysis GASTROINTESTINAL: Absent: abdominal pain, abdominal distension, nausea, vomiting, diarrhea, constipation, melena, hematochezia GENITOURINARY: Absent: dysuria, frequency, urgency, hesitancy, hematuria, flank pain, genital pain SKIN: Absent: rash, itching, pallor HEMATOLOGIC/IMMUNOLOGIC: Absent: easy bleeding, easy bruising, lymphadenopathy, frequent infections ENDOCRINE: Absent: unexplained weight gain, unexplained weight loss, heat intolerance, cold intolerance NEUROLOGIC: Absent: headache, focal weakness or paresthesias, dizziness, unsteady gait, seizure, mental status changes, bladder or bowel incontinence PSYCHIATRIC: Absent: anxiety, depression, suicidal or homicidal ideation, hallucinations. PHYSICAL EXAMINATION General: awake, alert CV: S1, S2, RRR Respiratory: CLTA B/L, no wheeze/crackle Abdomen: soft, (+) bowel sounds, no TTP Extremity: surgical site b/t 2nd and 3rd toes on RLE clean no visible purulent discharge, cold foot, warm calf/ankle Vital Signs - 24 hr 01/31/19 01/31/19 02/01/19 21:00 22:00 06:00 Temperature 99.0 F 98.8 F Pulse Rate 95 H 94 H Respiratory 18 18 Rate Blood Pressure 133/77 140/66 O2 Sat by Pulse 98 Oximetry (%) 02/01/19 02/01/19 02/01/19 09:00 10:00 15:07 Temperature 98.4 F 98 F Pulse Rate 101 H 94 H Respiratory 18 16 Rate Blood Pressure 133/90 132/101 H O2 Sat by Pulse 98 100 Oximetry (%) 02/01/19 02/01/19 02/01/19 15:20 15:35 15:50 Temperature Pulse Rate 93 H 94 H 95 H Respiratory 16 14 16 Rate Blood Pressure 149/96 145/89 146/86 O2 Sat by Pulse 100 100 100 Oximetry (%) 02/01/19 02/01/19 02/01/19 16:05 16:20 16:35 Temperature Pulse Rate 92 H 96 H 98 H Respiratory 16 16 18 Rate Blood Pressure 145/90 145/92 150/94 O2 Sat by Pulse 100 100 100 Oximetry (%) 02/01/19 02/01/19 02/01/19 16:50 17:05 17:20 Temperature Pulse Rate 99 H 100 H 95 H Respiratory 20 18 18 Rate Blood Pressure 165/97 165/94 144/84 O2 Sat by Pulse 100 100 99 Oximetry (%) 02/01/19 02/01/19 02/01/19 17:35 17:50 18:05 Temperature Pulse Rate 94 H 100 H 106 H Respiratory 20 20 22 H Rate Blood Pressure 132/88 176/88 H 170/90 O2 Sat by Pulse 99 99 99 Oximetry (%) Laboratory Results - last 24 hr 01/31/19 02/01/19 02/01/19 21:32 05:44 12:16 WBC RBC Hgb Hct MCV MCH MCHC RDW Plt Count MPV Absolute Neuts (auto) Neutrophils % Lymphocytes % Monocytes % Eosinophils % Basophils % Nucleated RBC % PT with INR INR Sodium Potassium Chloride Carbon Dioxide Anion Gap BUN Creatinine Est GFR (CKD-EPI)AfAm Est GFR (CKD-EPI)NonAf POC Glucometer 298 298 269 Random Glucose Calcium Magnesium Total Bilirubin AST ALT Alkaline Phosphatase Total Protein Albumin 02/01/19 02/01/19 02/01/19 12:19 12:19 12:19 WBC 13.8 H RBC 4.41 Hgb 11.5 L Hct 34.6 L MCV 78.4 L MCH 26.1 MCHC 33.3 RDW 14.2 Plt Count 686 H MPV 7.1 L Absolute Neuts (auto) 9.7 H Neutrophils % 69.9 Lymphocytes % 17.0 Monocytes % 10.3 H Eosinophils % 2.0 Basophils % 0.8 Nucleated RBC % 0 PT with INR 21.30 H INR 1.79 H Sodium 139 Potassium 4.3 Chloride 101 Carbon Dioxide 29 Anion Gap 9 BUN 14.6 Creatinine 1.0 Est GFR (CKD-EPI)AfAm 102.69 Est GFR (CKD-EPI)NonAf 88.61 POC Glucometer Random Glucose 262 H Calcium 9.0 Magnesium 2.1 Total Bilirubin 0.2 AST 9 L ALT 15 Alkaline Phosphatase 99 Total Protein 7.5 Albumin 2.4 L Active Medications Generic Name Dose Route Start Last Admin Trade Name Freq PRN Reason Stop Dose Admin Acetaminophen 650 mg 02/01/19 18:23 Tylenol - PO Q6H PRN FEVER Aspirin 81 mg 02/02/19 10:00 Asa - PO DAILY [facility] Atorvastatin Calcium 40 mg 02/01/19 22:00 Lipitor - PO HS [facility] Chlorhexidine Gluconate 1 applic 02/01/19 22:00 Hibiclens For Decolonization - TP HS [facility] Docusate Sodium 100 mg 02/01/19 22:00 Colace - PO TID [facility] Alteplase, Recombinant 15 mg/ 150 mls @ 5 mls/hr 02/01/19 14:30 02/01/19 15: 07 Sodium Chloride CVP 02/02/19 20:29 0 mls ONCE ONE Administration HEPARIN SOD,PORK IN 0.45% NACL 25,000 units in 500 mls @ 10 mls/hr 02/01/19 18 :23 Heparin-1/2ns 25,000 Units/500 IVPB 02/03/19 16:29 ONCE ONE Lactated Ringer's 1,000 mls @ 125 mls/hr 02/01/19 18:23 Lactated Ringers Solution IV ASDIR [facility] Sodium Chloride 1,000 mls @ 75 mls/hr 02/01/19 18:23 Normal Saline - IV ASDIR [facility] Insulin Aspart 1 vial 02/01/19 22:00 Novolog Vial Sliding Scale - SQ ACHS [facility] Protocol Insulin Detemir 5 units 02/01/19 22:00 Levemir Vial SQ HS [facility] Lisinopril 2.5 mg 02/02/19 10:00 Prinivil PO DAILY [facility] Metoprolol Tartrate 25 mg 02/01/19 22:00 Lopressor - PO BID [facility] Mupirocin 1 applic 02/01/19 22:00 Bactroban Ointment (For Decolonization) - NS 02/06/19 21:59 BID [facility] Ondansetron HCl 4 mg 02/01/19 18:23 Zofran Injection IVPUSH Q6H PRN NAUSEA AND/OR VOMITING Oxycodone HCl 5 mg 02/01/19 18:23 Roxicodone - PO Q6H PRN PAIN LEVEL 4 - 6 Oxycodone HCl 10 mg 02/01/19 18:23 02/01/19 19:15 Roxicodone - PO 10 mg Q6H PRN Administration PAIN LEVEL 7 - 10 Polyethylene Glycol 17 gm 02/02/19 10:00 Miralax (For Daily Use) - PO DAILY [facility] Promethazine HCl 12.5 mg 02/01/19 18:23 Phenergan Injection - IVPUSH Q6H PRN NAUSEA-FOR RESCUE AFTER 15 MIN ASSESSMENT/PLAN: 49 year old male with h/o RLE (popliteal artery, posterior tibial artery) occlusion and poor adherence to A/C regimen presented with RLE pain, s/p angiogram on 01/25 and A/C with Lovenox. Patient subsequently developed cold R foot and s/p repeat angiogram, aortagram and TPA today. POD#0 RLE Aortagra, Angiogram, TPA infusion R occlusive popliteal artery thrombus R posterior tibial artery thrombus CAD s/p PCI stenting HTN T2DM - POD #0 Aortagram, RLE angiogram, infusion of TPA - Patient on Dilaudid SEWING INSPECTOR pump - Continue home medications: ASA 81mg qdaily for CAD/stenting hx Lipitor 40mg HS PO Lopressor 25mg BID PO BGM ACHS and ISS for glycemic control FEN: Fluids: LR @ 125mL/hour Monitor electrolytes and replete as necessary Nutrition: NPO PPX DVT - Patient on Heparin drip GI - Not indicated currently Dispo: We will continue to follow the patient. Thank you for this consultative opportunity. Visit type - Emergency Visit Emergency Visit: No - New Patient This patient is new to me today: No - Critical Care Critical Care patient: No ATTENDING PHYSICIAN STATEMENT I saw and evaluated the patient. I reviewed the resident's note and discussed the case with the resident. I agree with the resident's findings and plan as documented. SUBJECTIVE: OBJECTIVE: ASSESSMENT AND PLAN:
[2019-02-01] MEDS ORDERED: PROMETHAZINE HCL 25 MG/1 ML VIAL IVPB PRN (21:29)
[2019-02-01] MEDS ORDERED: DEXAMETHASONE SOD PHOSPHATE 4 MG/1 ML VIAL IVPUSH PRN (21:29)
[2019-02-01] MEDS ORDERED: HYDROmorphone *PCA* 10MG/50ML DISP.SYRIN PCA SCH (21:30)
[2019-02-01] MEDS ORDERED: CHLORHEXIDINE GLUCONATE 4% CLEANSER FOR DECOLONIZATION TP SCH (22:00)
[2019-02-01] MEDS ORDERED: ATORVASTATIN CA 40 MG TABLET (FP) PO SCH (22:00)
[2019-02-01] MEDS ORDERED: INSULIN (LEVEMIR) 100 UNITS/ML UNITS SQ SCH ×2 (22:00)
[2019-02-01] MEDS ORDERED: METOPROLOL TARTRATE 5 MG/5 ML VIAL ONE (22:24)
[2019-02-01 22:38] LABS: BLOOD UREA NITROGEN 12.9 mg/dL (7-18); CREATININE 0.9 mg/dL (0.55-1.3); POTASSIUM 3.9 mmol/L (3.5-5.1)
[2019-02-01 22:41] LABS: INR 1.66 (0.83-1.09); PROTHROMBIN TIME (PATIENT) 19.7 SEC (9.7-13.0)
[2019-02-01 22:42] LABS: HEMATOCRIT 32.5 % (35.4-49); HEMOGLOBIN 10.6 GM/dL (11.7-16.9); MCH 25.7 pg (25.7-33.7); MCHC 32.5 g/dl (32.0-35.9); MEAN CELL VOLUME 79.1 fl (80-96); MEAN PLT VOLUME 7.2 fl (7.5-11.1); PLATELET COUNT 537 K/MM3 (134-434); RBC 4.11 M/mm3 (4.00-5.60); RDW 14.4 % (11.9-15.9); WHITE BLOOD COUNT 14.4 K/mm3 (4.0-10.0)
[2019-02-01 22:43] LABS: ACTIVATED PTT 26.3 SECONDS (25.2-36.5)
[2019-02-02] MEDS ORDERED: SODIUM CHLORIDE 1,000 ML IV SCH
[2019-02-02] MEDS: LACTATED RINGERS SOLUTION 1,000 ML IV SCH (00:05)
[2019-02-02] MEDS: DOCUSATE SODIUM 100 MG CAPSULE (FP) PO SCH ×4 (00:08→21:19)
[2019-02-02] MEDS: INSULIN SLIDING SCALE (NOVOLOG) 1 VIAL SQ SCH ×5 (00:09→21:23)
[2019-02-02] MEDS: MUPIROCIN 2% TOPICAL OINTMENT FOR DECOLONIZATION NS SCH ×2 (00:12→21:19)
[2019-02-02] MEDS ORDERED: ACETAMINOPHEN 1000 MG/100 ML VIAL (NON FORMULARY) IVPB PRN ×2 (01:46→16:52)
[2019-02-02] MEDS ORDERED: METOPROLOL TARTRATE 5 MG/5 ML VIAL IVPUSH PRN ×2 (01:47→16:52)
[2019-02-02] MEDS ORDERED: ALTEPLASE (CATHFLO) 15 MG in SODIUM CHLORIDE 150 ML CVP ONE (02:34)
[2019-02-02 03:12] LABS: HEMATOCRIT 33.3 % (35.4-49); HEMOGLOBIN 10.8 GM/dL (11.7-16.9); MCH 25.6 pg (25.7-33.7); MCHC 32.4 g/dl (32.0-35.9); MEAN CELL VOLUME 78.9 fl (80-96); MEAN PLT VOLUME 6.8 fl (7.5-11.1); PLATELET COUNT 588 K/MM3 (134-434); RBC 4.22 M/mm3 (4.00-5.60); RDW 14.1 % (11.9-15.9); WHITE BLOOD COUNT 14.1 K/mm3 (4.0-10.0)
[2019-02-02 03:43] LABS: INR 1.99 (0.83-1.09); PROTHROMBIN TIME (PATIENT) 23.7 SEC (9.7-13.0)
[2019-02-02 03:46] LABS: BLOOD UREA NITROGEN 12.1 mg/dL (7-18); CALCIUM 8.7 mg/dL (8.5-10.1); POTASSIUM 4.4 mmol/L (3.5-5.1)
[2019-02-02 06:38] LABS: BASO % 0.4 % (0-2.0); EOS % 1.2 % (0-4.5); HEMATOCRIT 33.7 % (35.4-49); HEMOGLOBIN 11.1 GM/dL (11.7-16.9); LYMPH % 15.7 % (8-40); MCH 26.2 pg (25.7-33.7); MCHC 33.1 g/dl (32.0-35.9); MEAN CELL VOLUME 79.1 fl (80-96); MONO % 11.2 % (3.8-10.2); NEUT % 71.5 % (42.8-82.8); PLATELET COUNT 615 K/MM3 (134-434); RBC 4.26 M/mm3 (4.00-5.60); RDW 14.1 % (11.9-15.9); WHITE BLOOD COUNT 13.6 K/mm3 (4.0-10.0)
[2019-02-02 06:45] LABS: INR 2.08 (0.83-1.09); PROTHROMBIN TIME (PATIENT) 24.7 SEC (9.7-13.0)
[2019-02-02 06:48] LABS: ACTIVATED PTT 34.3 SECONDS (25.2-36.5)
[2019-02-02 07:04] LABS: ALBUMIN 2.2 g/dl (3.4-5.0); BILIRUBIN,TOTAL 0.2 mg/dL (0.2-1); BLOOD UREA NITROGEN 12.3 mg/dL (7-18); MAGNESIUM 2.1 mg/dL (1.8-2.4); POTASSIUM 4.6 mmol/L (3.5-5.1); TOT PROT 7.5 g/dl (6.4-8.2)
--- NOTE | 2019-02-02 07:41 | PN ---
Progress Note (short form) - Note Progress Note: 49yo M s/p RLE thrombolysis with TPA drip. Pt currently in ICU on TPA drip. No issues overnight. Plan for pt to return to OR today for attempted clot removal. Pt denies any changes in his foot. Last Vital Signs Temp Pulse Resp BP Pulse Ox 99.9 F H 103 H 20 150/101 H 100 02/02/19 02:00 02/02/19 06:30 02/02/19 06:30 02/02/19 06:30 02/02/19 06:30 CBC, BMP 02/02/19 05:45 02/02/19 05:45 Gen: alert. nad. LE'S: R foot cool to touch to midfoot, some discoloration noted at distal tips of toes. 4th toe medial aspect with approx 1x1cm circular ulcer with scant bleeding noted, no erythema or drainage. +TTP of foot. Decreased motor (able to wiggle toes slightly) and sensory deficits both stable from prior. No other ulcerations noted, trace edema of foot. No ulcerations noted in L foot, l foot warm, well perfused. Vasc: RLE with biphasic PT (no DP-unchanged from prior) Problem List - Problems (1) Arterial occlusion Assessment/Plan: Plan -will plan to keep pt back for declot of RLE today, Keep NPO, explained difficulty of procedure and may not be successful to pt. -cont TPA drip -medical care as per ICU team. Code(s): I70.90 - UNSPECIFIED ATHEROSCLEROSIS
--- NOTE | 2019-02-02 08:46 | PN ---
Progress Note (short form) - Note Progress Note: Vascular Surgery Pt seen and examined. Right foot warmer. Dopplerable PT pulse. warm to ankle and heel. Motor and sensory intact. Cont TPA at 2mg/hr. Pt for thrombolysis check today Morgan Chandler DO Problem List - Problems (1) Arterial occlusion Code(s): I70.90 - UNSPECIFIED ATHEROSCLEROSIS (2) Right leg pain Code(s): M79.604 - PAIN IN RIGHT LEG
[2019-02-02 09:13] LABS: HEMATOCRIT 32.7 % (35.4-49); HEMOGLOBIN 10.8 GM/dL (11.7-16.9); MCH 25.9 pg (25.7-33.7); MEAN CELL VOLUME 78.5 fl (80-96); MEAN PLT VOLUME 6.7 fl (7.5-11.1); PLATELET COUNT 579 K/MM3 (134-434); RBC 4.16 M/mm3 (4.00-5.60); RDW 14.2 % (11.9-15.9); WHITE BLOOD COUNT 13.4 K/mm3 (4.0-10.0)
[2019-02-02 09:24] LABS: INR 2.24 (0.83-1.09); PROTHROMBIN TIME (PATIENT) 26.6 SEC (9.7-13.0)
[2019-02-02 09:27] LABS: ACTIVATED PTT 35.6 SECONDS (25.2-36.5)
--- NOTE | 2019-02-02 09:40 | PN ---
Progress Note, Physician History of Present Illness: patient post op on tpa in icu leg starting to look better - Current Medication List Current Medications: Active Medications Acetaminophen (Tylenol -) 650 mg PO Q6H PRN PRN Reason: FEVER Acetaminophen (Ofirmev Injection -) 1,000 mg IVPB Q6H PRN PRN Reason: FEVER Last Admin: 02/02/19 02:43 Dose: 1,000 mg Aspirin (Asa -) 81 mg PO DAILY [facility] Atorvastatin Calcium (Lipitor -) 40 mg PO HS [facility] Last Admin: 02/02/19 00:08 Dose: Not Given Chlorhexidine Gluconate (Hibiclens For Decolonization -) 1 applic TP HS [facility] Last Admin: 02/02/19 00:12 Dose: 1 applic Dexamethasone Sodium Phosphate (Decadron Injection -) 4 mg IVPUSH ONCE PRN PRN Reason: NAUSEA AND/OR VOMITING Diphenhydramine HCl (Benadryl Injection -) 12.5 mg IVPUSH ONCE PRN PRN Reason: FOR ITCHING Docusate Sodium (Colace -) 100 mg PO TID [facility] Last Admin: 02/02/19 05:00 Dose: Not Given Hydromorphone HCl (Hydromorphone 10 Mg/50 Ml-Ns) 10 mg SORTING AND FOLDING SUPERVISOR SORTING AND FOLDING SUPERVISOR [facility]; Protocol Stop: 02/08/19 21:29 Last Admin: 02/01/19 22:45 Dose: 10 mg HEPARIN SOD,PORK IN 0.45% NACL (Heparin-1/2ns 25,000 Units/500) 25,000 units in 500 mls @ 10 mls/hr IVPB ONCE ONE Stop: 02/03/19 16:29 Last Admin: 02/02/19 00:02 Dose: 10 mls/hr Lactated Ringer's (Lactated Ringers Solution) 1,000 mls @ 125 mls/hr IV ASDIR [facility] Last Admin: 02/02/19 00:05 Dose: 125 mls/hr Sodium Chloride (Normal Saline -) 1,000 mls @ 75 mls/hr IV ASDIR [facility] Last Admin: 02/01/19 22:45 Dose: 75 mls/hr Alteplase, Recombinant 15 mg/ (Sodium Chloride) 150 mls @ 5 mls/hr CVP ASDIR ONE Stop: 02/02/19 20:29 Last Admin: 02/02/19 02:34 Dose: 20 mls/hr Insulin Aspart (Novolog Vial Sliding Scale -) 1 vial SQ ACHS [facility]; Protocol Last Admin: 02/02/19 07:13 Dose: 6 unit Insulin Detemir (Levemir Vial) 5 units SQ HS [facility] Last Admin: 02/02/19 00:08 Dose: Not Given Lisinopril (Prinivil) 2.5 mg PO DAILY [facility] Metoprolol Tartrate (Lopressor -) 25 mg PO BID [facility] Last Admin: 02/01/19 23:30 Dose: Not Given Metoprolol Tartrate (Lopressor Injection -) 5 mg IVPUSH Q4H PRN PRN Reason: HYPERTENSION Last Admin: 02/02/19 02:43 Dose: 5 mg Mupirocin (Bactroban Ointment (For Decolonization) -) 1 applic NS BID [facility] Stop: 02/06/19 21:59 Last Admin: 02/02/19 00:12 Dose: 1 applic Ondansetron HCl (Zofran Injection) 4 mg IVPUSH Q4H PRN PRN Reason: NAUSEA AND/OR VOMITING Oxycodone HCl (Roxicodone -) 5 mg PO Q6H PRN PRN Reason: PAIN LEVEL 4 - 6 Oxycodone HCl (Roxicodone -) 10 mg PO Q6H PRN PRN Reason: PAIN LEVEL 7 - 10 Last Admin: 02/01/19 19:15 Dose: 10 mg Polyethylene Glycol (Miralax (For Daily Use) -) 17 gm PO DAILY [facility] Promethazine HCl (Phenergan Injection -) 12.5 mg IVPB Q6H PRN PRN Reason: NAUSEA AND/OR VOMITING - Objective Vital Signs: Vital Signs Temperature 99.9 F H 02/02/19 02:00 Pulse Rate 103 H 02/02/19 06:30 Respiratory Rate 20 02/02/19 06:30 Blood Pressure 150/101 H 02/02/19 06:30 O2 Sat by Pulse Oximetry (%) 100 02/02/19 06:30 Constitutional: Yes: No Distress, Calm Cardiovascular: Yes: S1, S2 Respiratory: Yes: Regular, CTA Bilaterally Gastrointestinal: Yes: Normal Bowel Sounds, Soft Musculoskeletal: Yes: WNL Extremities: Yes: Other (rt leg starting to improve pain better) Neurological: Yes: Alert, Oriented Psychiatric: Yes: Alert, Oriented Labs: CBC, BMP 02/02/19 08:50 INR, PTT INR 2.24 (0.83-1.09) H 02/02/19 08:50 Fibrinogen 357.0 mg/dL (238-498) 02/02/19 02:00 Assessment/Plan Problem List - Problems (1) Arterial occlusion Code(s): I70.90 - UNSPECIFIED ATHEROSCLEROSIS (2) CAD (coronary artery disease) Code(s): I25.10 - ATHSCL HEART DISEASE OF [place] CORONARY ARTERY W/O ANG PCTRS (3) H/O heart artery stent Code(s): Z95.5 - PRESENCE OF CORONARY ANGIOPLASTY IMPLANT AND GRAFT (4) HLD (hyperlipidemia) Code(s): E78.5 - HYPERLIPIDEMIA, UNSPECIFIED (5) Hematuria Code(s): R31.9 - HEMATURIA, UNSPECIFIED (6) Obesity Code(s): E66.9 - OBESITY, UNSPECIFIED (7) PAD (peripheral artery disease) Code(s): I73.9 - PERIPHERAL VASCULAR DISEASE, UNSPECIFIED (8) Right leg pain Code(s): M79.604 - PAIN IN RIGHT LEG (9) Smokes cigarettes Code(s): F17.210 - NICOTINE DEPENDENCE, CIGARETTES, UNCOMPLICATED (10) Diabetes type 2, uncontrolled Code(s): E11.65 - TYPE 2 DIABETES MELLITUS WITH HYPERGLYCEMIA (11) Hypertension Code(s): I10 - ESSENTIAL (PRIMARY) HYPERTENSION Assessment/Plan 49 y.o. male with PMH of DVT, RLE arterial occlusion s/p TPA (has not been taking Xarelto due to lack of insurance coverage), obesity, CAD s/p stent, CHF, HTN, HLD, DM presented with c/o severe RLE pain x 1 wk and foot feeling cold. Noted to have Rt popliteal and tibial arterial occlusion and initially underwent thrombolysis but then subsequently had SFA angioplasty with stent and tibial artery angioplasty on 01/25/19. Pt noted to have increasing wbc count since yesterday and mild temp elevation to 99.3F. +recent hematuria Leukocytosis RLE popliteal and tibial artery occlusion s/p angioplasty/stent Hematuria Hx of RLE arterial occlusion s/p TPA CAD s/p stent CHF DM HTN HLD Obesity plan continue current mgmt monitor the leg rest as per vascular and icu cc 40 min
[2019-02-02 09:48] LABS: BLOOD UREA NITROGEN 11.6 mg/dL (7-18); CREATININE 0.9 mg/dL (0.55-1.3); POTASSIUM 4.3 mmol/L (3.5-5.1)
[2019-02-02] MEDS ORDERED: POLYETHYLENE GLYCOL 3350 119 GM BTL PO SCH (10:00)
[2019-02-02] MEDS ORDERED: LISINOPRIL 5 MG TABLET (FP) PO SCH (10:00)
[2019-02-02] MEDS ORDERED: ASPIRIN 81 MG CHEWABLE TABLETS PO SCH (10:00)
[2019-02-02] MEDS ORDERED: HEPARIN NA (PORCINE) 5,000 UNITS/ML 1ML VIAL ONE ×2 (10:20→12:05)
[2019-02-02] MEDS: METOPROLOL TARTRATE 25 MG TABLET (FP) PO SCH ×2 (10:23→21:19)
--- NOTE | 2019-02-02 11:22 | PN ---
Teaching Attending Note Name of Resident: Nerissa Cisneros ATTENDING PHYSICIAN STATEMENT I saw and evaluated the patient. I reviewed the resident's note and discussed the case with the resident. I agree with the resident's findings and plan as documented. SUBJECTIVE: Pt seen and examined in the ICU. tPA infusing. Still with cool dorsum right foot. No shortness of breath or chest pain. OBJECTIVE: Vital Signs Period Temp Pulse Resp BP Sys/Miller Pulse Ox Last 24 Hr 98 F-100.8 F 92-125 14-26 132-176/84-107 95-100 Intake & Output 01/30/19 01/31/19 02/01/19 02/02/19 23:59 23:59 23:59 23:59 Intake Total 2775 162 0336 100 Output Total 8244 512 5088 1100 Balance -900 0 280 -1000 Gen: NAD at rest Heart: RRR Lung: decreased breath sounds at the bases Abd: soft, nontender Ext: no edema CBC, BMP 02/02/19 08:50 02/02/19 08:50 Active Medications Acetaminophen (Tylenol -) 650 mg PO Q6H PRN PRN Reason: FEVER Acetaminophen (Ofirmev Injection -) 1,000 mg IVPB Q6H PRN PRN Reason: FEVER Last Admin: 02/02/19 02:43 Dose: 1,000 mg Aspirin (Asa -) 81 mg PO DAILY [facility] Last Admin: 02/02/19 10:25 Dose: 81 mg Atorvastatin Calcium (Lipitor -) 40 mg PO HS [facility] Last Admin: 02/02/19 00:08 Dose: Not Given Chlorhexidine Gluconate (Hibiclens For Decolonization -) 1 applic TP [facility] Last Admin: 02/02/19 00:12 Dose: 1 applic Dexamethasone Sodium Phosphate (Decadron Injection -) 4 mg IVPUSH ONCE PRN PRN Reason: NAUSEA AND/OR VOMITING Diphenhydramine HCl (Benadryl Injection -) 12.5 mg IVPUSH ONCE PRN PRN Reason: FOR ITCHING Docusate Sodium (Colace -) 100 mg PO TID [facility] Last Admin: 02/02/19 05:00 Dose: Not Given Hydromorphone HCl (Hydromorphone 10 Mg/50 Ml-Ns) 10 mg DIRECTOR OF ACADEMIC DIRECTOR OF ACADEMIC [facility]; Protocol Stop: 02/08/19 21:29 Last Admin: 02/01/19 22:45 Dose: 10 mg HEPARIN SOD,PORK IN 0.45% NACL (Heparin-1/2ns 25,000 Units/500) 25,000 units in 500 mls @ 10 mls/hr IVPB ONCE ONE Stop: 02/03/19 16:29 Last Admin: 02/02/19 00:02 Dose: 10 mls/hr Lactated Ringer's (Lactated Ringers Solution) 1,000 mls @ 125 mls/hr IV ASDIR [facility] Last Admin: 02/02/19 00:05 Dose: 125 mls/hr Sodium Chloride (Normal Saline -) 1,000 mls @ 75 mls/hr IV ASDIR [facility] Last Admin: 02/01/19 22:45 Dose: 75 mls/hr Alteplase, Recombinant 15 mg/ (Sodium Chloride) 150 mls @ 5 mls/hr CVP [facility] ONE Stop: 02/02/19 20:29 Last Admin: 02/02/19 02:34 Dose: 20 mls/hr Insulin Aspart (Novolog Vial Sliding Scale -) 1 vial SQ [facility]; Protocol Last Admin: 02/02/19 07:13 Dose: 6 unit Insulin Detemir (Levemir Vial) 5 units SQ [facility] Last Admin: 02/02/19 00:08 Dose: Not Given Lisinopril (Prinivil) 2.5 mg PO DAILY [facility] Last Admin: 02/02/19 10:23 Dose: 2.5 mg Metoprolol Tartrate (Lopressor -) 25 mg PO BID [facility] Last Admin: 02/02/19 10:23 Dose: 25 mg Metoprolol Tartrate (Lopressor Injection -) 5 mg IVPUSH Q4H PRN PRN Reason: HYPERTENSION Last Admin: 02/02/19 02:43 Dose: 5 mg Mupirocin (Bactroban Ointment (For Decolonization) -) 1 applic NS BID [facility] Stop: 02/06/19 21:59 Last Admin: 02/02/19 00:12 Dose: 1 applic Ondansetron HCl (Zofran Injection) 4 mg IVPUSH Q4H PRN PRN Reason: NAUSEA AND/OR VOMITING Oxycodone HCl (Roxicodone -) 5 mg PO Q6H PRN PRN Reason: PAIN LEVEL 4 - 6 Oxycodone HCl (Roxicodone -) 10 mg PO Q6H PRN PRN Reason: PAIN LEVEL 7 - 10 Last Admin: 02/01/19 19:15 Dose: 10 mg Polyethylene Glycol (Miralax (For Daily Use) -) 17 gm PO DAILY [facility] Last Admin: 02/02/19 10:25 Dose: Not Given Promethazine HCl (Phenergan Injection -) 12.5 mg IVPB Q6H PRN PRN Reason: NAUSEA AND/OR VOMITING ASSESSMENT AND PLAN: Right Popliteal Artery/Posterior Tibial Artery Thrombus s/p RLE Anigiogram/SFA Angioplasty/Stent/Tibial Artery Angioplasty 01/25 RLE Ischemia s/p RLE Angiogram/tPA infusion 02/01 CAD s/p PCI stenting HTN DM - pulse checks - continue tPA infusion - to return to OR later today - continue anticoagulation - pain control - O2 to keep SpO2 >90% - continue ICU monitoring
--- NOTE | 2019-02-02 13:28 | PN ---
Physical Exam: SUBJECTIVE: Patient seen and examined at the bedside. No acute events overnight. Patient on TPA drip is waiting to be taken to the OR today for clot retrieval. OBJECTIVE: Vital Signs Period Temp Pulse Resp BP Sys/Miller Pulse Ox Last 24 Hr 98 F-100.8 F 92-125 14-26 132-176/84-107 95-100 GENERAL: The patient is awake, alert, and fully oriented, in no acute distress. HEAD: Normal with no signs of trauma. EYES: PERRL, extraocular movements intact, sclera anicteric, conjunctiva clear. No ptosis. ENT: Ears normal, nares patent, oropharynx clear without exudates, moist mucous membranes. NECK: Trachea midline, full range of motion, supple. LUNGS: Breath sounds equal, clear to auscultation bilaterally, no wheezes, no crackles, no accessory muscle use. HEART: Regular rate and rhythm, S1, S2 without murmur. ABDOMEN: Soft, nontender, nondistended, normoactive bowel sounds, no guarding, no rebound. EXTREMITIES: surgical site b/t 2nd and 3rd toes on RLE clean no visible purulent discharge, cold foot, warm calf/ankle NEUROLOGICAL: Cranial nerves II through XII grossly intact. Normal speech, gait not observed. PSYCH: Normal mood, normal affect. SKIN: Warm, dry, normal turgor, no rashes or lesions noted Laboratory Results - last 24 hr 02/01/19 02/01/19 02/01/19 21:50 21:50 21:50 WBC 14.4 H RBC 4.11 Hgb 10.6 L Hct 32.5 L MCV 79.1 L MCH 25.7 MCHC 32.5 RDW 14.4 Plt Count 537 H D MPV 7.2 L Absolute Neuts (auto) Neutrophils % Lymphocytes % Monocytes % Eosinophils % Basophils % Nucleated RBC % PT with INR 19.70 H INR 1.66 H PTT (Actin FS) 26.3 Fibrinogen > 500.0 H Sodium Potassium Chloride Carbon Dioxide Anion Gap BUN Creatinine Est GFR (CKD-EPI)AfAm Est GFR (CKD-EPI)NonAf POC Glucometer Random Glucose Calcium Magnesium Total Bilirubin AST ALT Alkaline Phosphatase Total Protein Albumin 02/01/19 02/02/19 02/02/19 21:50 02:00 02:00 WBC RBC Hgb Hct MCV MCH MCHC RDW Plt Count MPV Absolute Neuts (auto) Neutrophils % Lymphocytes % Monocytes % Eosinophils % Basophils % Nucleated RBC % PT with INR 23.70 H INR 1.99 H PTT (Actin FS) 34.0 Fibrinogen 357.0 Sodium 140 Potassium 3.9 Chloride 105 Carbon Dioxide 25 Anion Gap 10 BUN 12.9 Creatinine 0.9 Est GFR (CKD-EPI)AfAm 116.65 Est GFR (CKD-EPI)NonAf 100.64 POC Glucometer Random Glucose 261 H Calcium 8.0 L Magnesium Total Bilirubin AST ALT Alkaline Phosphatase Total Protein Albumin 02/02/19 02/02/19 02/02/19 03:00 03:00 05:45 WBC 14.1 H 13.6 H RBC 4.22 4.26 Hgb 10.8 L 11.1 L Hct 33.3 L 33.7 L MCV 78.9 L 79.1 L MCH 25.6 L 26.2 MCHC 32.4 33.1 RDW 14.1 14.1 Plt Count 588 H 615 H MPV 6.8 L 7.0 L Absolute Neuts (auto) 9.8 H Neutrophils % 71.5 Lymphocytes % 15.7 Monocytes % 11.2 H Eosinophils % 1.2 Basophils % 0.4 Nucleated RBC % 0 PT with INR INR PTT (Actin FS) Fibrinogen Sodium 137 Potassium 4.4 Chloride 100 Carbon Dioxide 29 Anion Gap 7 L BUN 12.1 Creatinine 1.0 Est GFR (CKD-EPI)AfAm 102.69 Est GFR (CKD-EPI)NonAf 88.61 POC Glucometer Random Glucose 313 H* Calcium 8.7 Magnesium Total Bilirubin AST ALT Alkaline Phosphatase Total Protein Albumin 02/02/19 02/02/19 02/02/19 05:45 05:45 05:57 WBC RBC Hgb Hct MCV MCH MCHC RDW Plt Count MPV Absolute Neuts (auto) Neutrophils % Lymphocytes % Monocytes % Eosinophils % Basophils % Nucleated RBC % PT with INR 24.70 H INR 2.08 H PTT (Actin FS) 34.3 Fibrinogen Sodium 137 Potassium 4.6 Chloride 100 Carbon Dioxide 30 Anion Gap 7 L BUN 12.3 Creatinine 1.0 Est GFR (CKD-EPI)AfAm 102.69 Est GFR (CKD-EPI)NonAf 88.61 POC Glucometer 292 Random Glucose 294 H Calcium 9.0 Magnesium 2.1 Total Bilirubin 0.2 AST 45 H ALT 16 Alkaline Phosphatase 100 Total Protein 7.5 Albumin 2.2 L 02/02/19 02/02/19 02/02/19 08:50 08:50 08:50 WBC 13.4 H RBC 4.16 Hgb 10.8 L Hct 32.7 L MCV 78.5 L MCH 25.9 MCHC 33.0 RDW 14.2 Plt Count 579 H MPV 6.7 L Absolute Neuts (auto) Neutrophils % Lymphocytes % Monocytes % Eosinophils % Basophils % Nucleated RBC % PT with INR 26.60 H INR 2.24 H PTT (Actin FS) 35.6 Fibrinogen 297.0 Sodium Potassium Chloride Carbon Dioxide Anion Gap BUN Creatinine Est GFR (CKD-EPI)AfAm Est GFR (CKD-EPI)NonAf POC Glucometer Random Glucose Calcium Magnesium Total Bilirubin AST ALT Alkaline Phosphatase Total Protein Albumin 02/02/19 02/02/19 08:50 12:22 WBC RBC Hgb Hct MCV MCH MCHC RDW Plt Count MPV Absolute Neuts (auto) Neutrophils % Lymphocytes % Monocytes % Eosinophils % Basophils % Nucleated RBC % PT with INR INR PTT (Actin FS) Fibrinogen Sodium 138 Potassium 4.3 Chloride 101 Carbon Dioxide 30 Anion Gap 7 L BUN 11.6 Creatinine 0.9 Est GFR (CKD-EPI)AfAm 116.65 Est GFR (CKD-EPI)NonAf 100.64 POC Glucometer 214 Random Glucose 257 H Calcium 9.0 Magnesium Total Bilirubin AST ALT Alkaline Phosphatase Total Protein Albumin Active Medications Generic Name Dose Route Start Last Admin Trade Name Freq PRN Reason Stop Dose Admin Acetaminophen 650 mg 02/01/19 18:23 Tylenol - PO Q6H PRN FEVER Acetaminophen 1,000 mg 02/02/19 01:46 02/02/19 02:43 Ofirmev Injection - IVPB 1,000 mg Q6H PRN Administration FEVER Aspirin 81 mg 02/02/19 10:00 02/02/19 10:25 Asa - PO 81 mg DAILY MARYJO Administration Atorvastatin Calcium 40 mg 02/01/19 22:00 02/02/19 00:08 Lipitor - PO Not Given HS MARYJO Chlorhexidine Gluconate 1 applic 02/01/19 22:00 02/02/19 00:12 Hibiclens For Decolonization - TP 1 applic HS MARYJO Administration Dexamethasone Sodium Phosphate 4 mg 02/01/19 21:29 Decadron Injection - IVPUSH ONCE PRN NAUSEA AND/OR VOMITING Diphenhydramine HCl 12.5 mg 02/01/19 21:29 Benadryl Injection - IVPUSH ONCE PRN FOR ITCHING Docusate Sodium 100 mg 02/01/19 22:00 02/02/19 05:00 Colace - PO Not Given TID MARYJO Hydromorphone HCl 10 mg 02/01/19 21:30 02/01/19 22:45 Hydromorphone 10 Mg/50 Ml-Ns ASSOCIATE BRAND MANAGER 02/08/19 21:29 10 mg ASSOCIATE BRAND MANAGER MARYJO Administration Protocol HEPARIN SOD,PORK IN 0.45% NACL 25,000 units in 500 mls @ 10 mls/hr 02/01/19 18 :23 02/02/19 00:02 Heparin-1/2ns 25,000 Units/500 IVPB 02/03/19 16:29 10 mls/hr ONCE ONE Administration Lactated Ringer's 1,000 mls @ 125 mls/hr 02/01/19 18:23 02/02/19 00:05 Lactated Ringers Solution IV 125 mls/hr ASDIR MARYJO Administration Sodium Chloride 1,000 mls @ 75 mls/hr 02/01/19 18:23 02/01/19 22:45 Normal Saline - IV 75 mls/hr ASDIR MARYJO Administration Alteplase, Recombinant 15 mg/ 150 mls @ 5 mls/hr 02/02/19 02:34 02/02/19 02: 34 Sodium Chloride CVP 02/02/19 20:29 20 mls/hr ASDIR ONE Administration Insulin Aspart 1 vial 02/01/19 22:00 02/02/19 07:13 Novolog Vial Sliding Scale - SQ 6 unit ACHS MARYJO Administration Protocol Insulin Detemir 5 units 02/01/19 22:00 02/02/19 00:08 Levemir Vial SQ Not Given HS MARYJO Lisinopril 2.5 mg 02/02/19 10:00 02/02/19 10:23 Prinivil PO 2.5 mg DAILY MARYJO Administration Metoprolol Tartrate 25 mg 02/01/19 22:00 02/02/19 10:23 Lopressor - PO 25 mg BID MARYJO Administration Metoprolol Tartrate 5 mg 02/02/19 01:47 02/02/19 02:43 Lopressor Injection - IVPUSH 5 mg Q4H PRN Administration HYPERTENSION Mupirocin 1 applic 02/01/19 22:00 02/02/19 00:12 Bactroban Ointment (For Decolonization) - NS 02/06/19 21:59 1 applic BID MARYJO Administration Ondansetron HCl 4 mg 02/01/19 21:29 Zofran Injection IVPUSH Q4H PRN NAUSEA AND/OR VOMITING Oxycodone HCl 5 mg 02/01/19 18:23 Roxicodone - PO Q6H PRN PAIN LEVEL 4 - 6 Oxycodone HCl 10 mg 02/01/19 18:23 02/01/19 19:15 Roxicodone - PO 10 mg Q6H PRN Administration PAIN LEVEL 7 - 10 Polyethylene Glycol 17 gm 02/02/19 10:00 02/02/19 10:25 Miralax (For Daily Use) - PO Not Given DAILY MARYJO Promethazine HCl 12.5 mg 02/01/19 21:29 Phenergan Injection - IVPB Q6H PRN NAUSEA AND/OR VOMITING ASSESSMENT/PLAN: 49 year old male with h/o RLE (popliteal artery, posterior tibial artery) occlusion and poor adherence to A/C regimen presented with RLE pain, s/p angiogram on 01/25 and A/C with Lovenox. Patient subsequently developed cold R foot and s/p repeat angiogram, aortagram and TPA today. POD#0 RLE Aortagra, Angiogram, TPA infusion R occlusive popliteal artery thrombus R posterior tibial artery thrombus CAD s/p PCI stenting HTN T2DM - POD #0 Aortagram, RLE angiogram, infusion of TPA - Patient on Dilaudid ASSOCIATE BRAND MANAGER pump - Continue home medications: ASA 81mg qdaily for CAD/stenting hx Lipitor 40mg HS PO Lopressor 25mg BID PO BGM ACHS and ISS for glycemic control -Plan to go to OR today for clot retrieval -NPO until surgery -Post-op care per surgical team - O2 to keep SpO2 >90% - continue ICU monitoring FEN: Fluids: LR @ 125mL/hour Monitor electrolytes and replete as necessary Nutrition: NPO PPX DVT - Patient on Heparin drip GI - Not indicated currently Dispo: We will continue to follow the patient. Thank you for this consultative opportunity. Visit type - Emergency Visit Emergency Visit: Yes ED Registration Date: 08/14/19 Care time: The patient presented to the Emergency Department on the above date and was hospitalized for further evaluation of their emergent condition. - New Patient This patient is new to me today: Yes Date on this admission: 02/02/19 - Critical Care Critical Care patient: Yes Total Critical Care Time (in minutes): 40 Critical Care Statement: The care of this patient involved high complexity decision making to prevent further life threatening deterioration of the patient 's condition and/or to evaluate & treat vital organ system(s) failure or risk of failure. ATTENDING PHYSICIAN STATEMENT I saw and evaluated the patient. I reviewed the resident's note and discussed the case with the resident. I agree with the resident's findings and plan as documented. SUBJECTIVE: OBJECTIVE: ASSESSMENT AND PLAN:
--- NOTE | 2019-02-02 13:51 | PN ---
Progress Note (short form) - Note Progress Note: Anesthesia POD#1 S/P Left Angiogram/Angioplasty under TIVA and METER ENGINEER VSS,pain was severe yesterday better now,no N/V Still feels pain. had to go to OR again. A/P Doing well with the Dilaudid METER ENGINEER. NPO now,so continue the METER ENGINEER till the 2nd procedure is over. Roxana Christine MD.
[2019-02-02] MEDS ORDERED: MIDAZOLAM HCL 2 MG/2 ML SINGLE DOSE VIAL ONE ×3 (14:14→15:26)
[2019-02-02] MEDS ORDERED: ceFAZolin SODIUM 1 GM VIAL IVPB ONE (14:15)
[2019-02-02] MEDS ORDERED: LIDOCAINE HCL 1%, 10 MG/ML (20ML VIAL) INF ONE (14:15)
[2019-02-02] MEDS ORDERED: LIDOCAINE HCL 1%, 10 MG/ML (20ML VIAL) ONE (14:23)
--- NOTE | 2019-02-02 16:32 | OP ---
Operative Note - Note: Operative Date: 02/02/19 Pre-Operative Diagnosis: RLE ischemia Operation: Right lower extremity angiogram, anterior tibial artery, peroneal artery, posterior tibial artery angioplasty Post-Operative Diagnosis: Same as Pre-op Surgeon: Morgan Chandler Anesthesia: Fractional Estimated Blood Loss (mls): 50 Operative Report Dictated: Yes
[2019-02-02] MEDS ORDERED: PROMETHAZINE HCL 25 MG/1 ML VIAL IVPB PRN (16:52)
[2019-02-02] MEDS ORDERED: DEXAMETHASONE SOD PHOSPHATE 4 MG/1 ML VIAL IVPUSH PRN (16:52)
[2019-02-02] MEDS ORDERED: ACETAMINOPHEN 325 MG TABLET (FP) PO PRN (16:52)
[2019-02-02] MEDS ORDERED: ONDANSETRON 4 MG/2 ML VIAL IVPUSH PRN (16:52)
[2019-02-02] MEDS ORDERED: LACTATED RINGERS SOLUTION 1,000 ML IV SCH (16:52)
[2019-02-02] MEDS ORDERED: PT OWN MED DRAWER 7, Y5N ONE (17:27)
[2019-02-02] MEDS: HYDROmorphone *PCA* 10MG/50ML DISP.SYRIN PCA SCH ×2 (17:46→20:20)
[2019-02-02] MEDS: RIVAROXABAN 15 MG TABLET PO SCH ×2 (17:46→21:31)
[2019-02-02] MEDS: SODIUM CHLORIDE 1,000 ML IV SCH (17:48)
--- NOTE | 2019-02-02 18:07 | PN ---
Progress Note, Physician Chief Complaint: Pt A&Ox3; exquisite pain along dorsum of right foot to even mild touch. History of Present Illness: Pt is a 48-year-old black male with past medical history of DVT and right lower extremity arterial occlusion status post angiogram with TPA 08/28, s/p "small PR" ? 2016-->coronary angiogram and coronary stent, DM, obesity, HTN, hyperlipidemia, cigarettes, who presents to ER for evaluation of right lower leg pain worsening over the past week. Patient reports he feels his leg is cold which there is any came to the emergency department for evaluation. Patient ran out of rivaroxaban. He denies fevers, chills, shortness of breath, chest pain, abdominal pain, nausea, vomiting. - Current Medication List Current Medications: Active Medications Acetaminophen (Tylenol -) 650 mg PO Q6H PRN PRN Reason: FEVER Acetaminophen (Ofirmev Injection -) 1,000 mg IVPB Q6H PRN PRN Reason: FEVER Aspirin (Asa -) 81 mg PO DAILY MARYJO Atorvastatin Calcium (Lipitor -) 40 mg PO HS MARYJO Chlorhexidine Gluconate (Hibiclens For Decolonization -) 1 applic TP HS MARYJO Dexamethasone Sodium Phosphate (Decadron Injection -) 4 mg IVPUSH ONCE PRN PRN Reason: NAUSEA AND/OR VOMITING Diphenhydramine HCl (Benadryl Injection -) 12.5 mg IVPUSH ONCE PRN PRN Reason: FOR ITCHING Docusate Sodium (Colace -) 100 mg PO TID MARYJO Hydromorphone HCl (Hydromorphone 10 Mg/50 Ml-Ns) 10 mg AUXILIARY OPERATOR AUXILIARY OPERATOR MARYJO; Protocol Stop: 02/08/19 21:29 Last Admin: 02/02/19 17:46 Dose: 10 mg Lactated Ringer's (Lactated Ringers Solution) 1,000 mls @ 125 mls/hr IV ASDIR MARYJO Sodium Chloride (Normal Saline -) 1,000 mls @ 75 mls/hr IV ASDIR MARYJO Last Admin: 02/02/19 17:48 Dose: 75 mls/hr Insulin Aspart (Novolog Vial Sliding Scale -) 1 vial SQ ACHS [facility]; Protocol Insulin Detemir (Levemir Vial) 5 units SQ HS [facility] Lisinopril (Prinivil) 2.5 mg PO DAILY [facility] Metoprolol Tartrate (Lopressor -) 25 mg PO BID [facility] Metoprolol Tartrate (Lopressor Injection -) 5 mg IVPUSH Q4H PRN PRN Reason: HYPERTENSION Mupirocin (Bactroban Ointment (For Decolonization) -) 1 applic NS BID [facility] Stop: 02/07/19 21:59 Ondansetron HCl (Zofran Injection) 4 mg IVPUSH Q4H PRN PRN Reason: NAUSEA AND/OR VOMITING Oxycodone HCl (Roxicodone -) 5 mg PO Q6H PRN PRN Reason: PAIN LEVEL 4 - 6 Oxycodone HCl (Roxicodone -) 10 mg PO Q6H PRN PRN Reason: PAIN LEVEL 7 - 10 Polyethylene Glycol (Miralax (For Daily Use) -) 17 gm PO DAILY [facility] Promethazine HCl (Phenergan Injection -) 12.5 mg IVPB Q6H PRN PRN Reason: NAUSEA AND/OR VOMITING Rivaroxaban (Xarelto) 15 mg PO BID [facility] Last Admin: 02/02/19 17:46 Dose: 15 mg - Objective Vital Signs: Vital Signs Temperature 98.1 F 02/02/19 16:30 Pulse Rate 111 H 02/02/19 17:46 Respiratory Rate 20 02/02/19 17:46 Blood Pressure 133/93 02/02/19 17:46 O2 Sat by Pulse Oximetry (%) 100 02/02/19 17:46 Constitutional: Yes: Anxious, Obese Eyes: Yes: WNL HENT: Yes: WNL Neck: Yes: Supple Cardiovascular: Yes: S1, S2, S4 Respiratory: Yes: WNL Gastrointestinal: Yes: Soft ...Rectal Exam: Yes: Deferred Genitourinary: No: Anuria Breast(s): Yes: WNL Musculoskeletal: Yes: Joint Stiffness, Joint Swelling, Muscle Pain, Muscle Weakness Extremities: Yes: Cold Edema: Yes Edema: LLE: Trace, RLE: Trace Peripheral Pulses WNL: No Peripheral Pulses: Right Dorsalis Pedis: 1+ Integumentary: Yes: Pressure Ulcer Neurological: Yes: Alert, Oriented Psychiatric: Yes: Other (anxiety) Labs: CBC, BMP 02/02/19 08:50 02/02/19 08:50 INR, PTT INR 2.24 (0.83-1.09) H 02/02/19 08:50 Fibrinogen 297.0 mg/dL (238-498) 02/02/19 08:50 Abnormal Lab Results 02/02/19 02/02/19 02/02/19 03:00 05:45 08:50 WBC 13.4 H Hgb 10.8 L Hct 32.7 L MCV 78.5 L Plt Count 579 H MPV 6.7 L PT with INR INR Anion Gap 7 L Random Glucose 313 H* 294 H AST 45 H Albumin 2.2 L 02/02/19 02/02/19 08:50 08:50 WBC Hgb Hct MCV Plt Count MPV PT with INR 26.60 H INR 2.24 H Anion Gap 7 L Random Glucose 257 H AST Albumin - ....Imaging Other: Image Reviewed (telemetry: NSR; no arrhythmias) Problem List - Problems (1) H/O heart artery stent Assessment/Plan: Hx "small PR" ? 2015-->coronary stent. (F/u records, and plan for further coronary artery evaluation, if stress MIBI or coronary angiogram was not done recently, once lower extremity is stable). S/p RLE angioplasty and stent. F/u lipids, and keep LDL < 70 mg/dL with statin, diet. EKG: NSR: LAFB; anterolateral infarct (no significant changes). ECHO 01/26/19: difficult and limited study; grossly normal LVEF, with aortic root upper limits of normal. Code(s): Z95.5 - PRESENCE OF CORONARY ANGIOPLASTY IMPLANT AND GRAFT (2) History of heart attack Code(s): I25.2 - OLD MYOCARDIAL INFARCTION (3) Obesity Code(s): E66.9 - OBESITY, UNSPECIFIED (4) Smokes cigarettes Assessment/Plan: Pt to consider nicotine patch. Code(s): F17.210 - NICOTINE DEPENDENCE, CIGARETTES, UNCOMPLICATED (5) Sedentary lifestyle Assessment/Plan: The need for lifestyle changes, once RLE is stable, was discussed in detail again with pt. Nutritional changes can start while still hospitalized; physical therapy once RLE procedures are completed; regular exercise after coronary arteries are reevaluated. Code(s): Z91.89 - OTH PERSONAL RISK FACTORS, NOT ELSEWHERE CLASSIFIED (6) HLD (hyperlipidemia) Code(s): E78.5 - HYPERLIPIDEMIA, UNSPECIFIED (7) Diabetes type 2, uncontrolled Assessment/Plan: start ACEI for renal protection, HTN, CAD (eg lisinopril 2.5-5 mg daily, and increase as tolerated and needed). DIetary changes; weight loss HGBA1c 12.9. Code(s): E11.65 - TYPE 2 DIABETES MELLITUS WITH HYPERGLYCEMIA (8) Hypertension Assessment/Plan: On metoprolol. Start lisinopril. Code(s): I10 - ESSENTIAL (PRIMARY) HYPERTENSION (9) PAD (peripheral artery disease) Assessment/Plan: s/p RLE angioplasty and stent. Continued cold and painful foot. On tPA. (Has been on warfarin; will be on DOAC). For repeat angiogram (and likely angioplasty) today. Code(s): I73.9 - PERIPHERAL VASCULAR DISEASE, UNSPECIFIED (10) DVT (deep venous thrombosis) Assessment/Plan: Was on warfarin: INR therapeutic. on alteplase. Planned for DOAC. Code(s): I82.409 - ACUTE EMBOLISM AND THOMBOS UNSP DEEP VN UNSP LOWER EXTREMITY Assessment/Plan CCU time spent 35 minutes.
--- NOTE | 2019-02-02 19:00 | OP ---
DATE OF OPERATION: 02/02/2019 PREOPERATIVE DIAGNOSIS: Right lower extremity ischemia. POSTOPERATIVE DIAGNOSIS: Right lower extremity ischemia. PROCEDURE: Right lower extremity angiogram, anterior tibial artery, peroneal artery, posterior tibial artery, angioplasty. SURGEON: Morgan Barragan DO ANESTHESIA: Fractional. BLOOD LOSS: 50 mL. HISTORY: Patient is a 49-year-old male that came in to the hospital about 10 days ago. He had thrombolysis performed and was successful about 7 days ago then developed Coumadin resistance and developed rethrombosis of the right lower extremity. Yesterday, he had thrombolysis performed, and we left the catheters in overnight at 2 mg/hr of tPA taking him back for a thrombolysis check today. Patient originally came in with right lower extremity ischemia for a couple of days. The patient has uncontrolled diabetes, and patient stopped taking his Xarelto for over a month. Today, patient was consented for the procedure understanding all risks, benefits, and alternatives and then taken to the operating room. DESCRIPTION OF PROCEDURE: Once in the operating room, was laid on the operating room table in supine manner, and the area of the right and left groin were prepped and draped in a sterile surgical manner. We then placed a 0.035 floppy guidewire into the EKOS catheter, and the EKOS catheter was removed. We then shot an angiogram of the right lower extremity from our sheath showing that the common femoral artery, profunda, SFA were patent. The popliteal artery was patent. TP trunk was not patent, and patient had 2-vessel runoff in the form of peroneal and posterior tibial down into the foot. At this point, we placed a 0.035 stiff guidewire along with an Omni Flush catheter successfully into the anterior tibial artery, and we followed that with our Quick-Cross catheter. We then exchanged for a V-18 wire. We then used a 2.5 x 220 balloon and performed angioplasty of the anterior tibial artery from the foot up. Prior to doing this, we administered to the patient 5000 units of IV heparin. We then went ahead and performed an angiogram via hand injection showing that the anterior tibial artery was now patent going down to the top of the foot, but beyond that, there were no branches going into the foot. We then went ahead and got our wire down into the peroneal artery and got it down to the ankle level, and we used our 2.5 x 220 balloon and performed angioplasty in the same manner. We then placed our wire into the posterior tibial artery down to the ankle and foot and used our 2.5 x 220 balloon and performed angioplasty of that vessel as well. Completion angiogram now showed that the trifurcation was patent and the posterior tibial artery goes all the way down into the plantar aspect of the foot. The anterior tibial artery goes to the top of the foot but does not have any branches. Peroneal artery goes in the ankle and then branches. At this point, no more intervention is needed. There is no thrombosis. There is no clot that is present. There is good, brisk flow. At this point, we brought our sheath up and over. A StarClose device was successfully deployed in the left common femoral artery. Pressure was held for 5 minutes. After there was no more bleeding, the area was wet and dried, and Dermabond was placed. Patient has a good Dopplerable DP and PT pulse. Patient will be started on Xarelto. Patient tolerated the procedure with no complication. Patient transferred to ICU in a stable manner. MORGAN BARRAGAN DO NP/[id number]
[2019-02-02] MEDS ORDERED: VANCOMYCIN 1 GM in D5W (PRE-DOCKED) 1,000 MG/250 ML IVPB ONE (20:39)
[2019-02-02] MEDS: ATORVASTATIN CA 40 MG TABLET (FP) PO SCH (21:19)
[2019-02-02] MEDS: CHLORHEXIDINE GLUCONATE 4% CLEANSER FOR DECOLONIZATION TP SCH (21:20)
--- NOTE | 2019-02-02 21:33 | PN ---
Progress Note, Physician History of Present Illness: Patient is a 49 year old male with a significant past medical history of diabetes, CAD(s/p stents), HTN, presents to [facility] with c/o of a cold R foot. No change in sensations, no weakness of any part of the body, no facial drop, no prior episodes of similar pain in the past, no chest pain or SOB. He is post op day #1 Right lower extremity angiogram, anterior tibial artery, peroneal artery, posterior tibial artery angioplasty - Current Medication List Current Medications: Active Medications Acetaminophen (Tylenol -) 650 mg PO Q6H PRN PRN Reason: FEVER Acetaminophen (Ofirmev Injection -) 1,000 mg IVPB Q6H PRN PRN Reason: FEVER Last Admin: 02/02/19 20:29 Dose: 1,000 mg Aspirin (Asa -) 81 mg PO DAILY COUNTS INCLUDE 234 BEDS AT THE [facility] Atorvastatin Calcium (Lipitor -) 40 mg PO HS COUNTS INCLUDE 234 BEDS AT THE [facility] Last Admin: 02/02/19 21:19 Dose: 40 mg Chlorhexidine Gluconate (Hibiclens For Decolonization -) 1 applic TP HS COUNTS INCLUDE 234 BEDS AT THE [facility] Last Admin: 02/02/19 21:20 Dose: 1 applic Dexamethasone Sodium Phosphate (Decadron Injection -) 4 mg IVPUSH ONCE PRN PRN Reason: NAUSEA AND/OR VOMITING Diphenhydramine HCl (Benadryl Injection -) 12.5 mg IVPUSH ONCE PRN PRN Reason: FOR ITCHING Docusate Sodium (Colace -) 100 mg PO TID COUNTS INCLUDE 234 BEDS AT THE [facility] Last Admin: 02/02/19 21:19 Dose: 100 mg Hydromorphone HCl (Hydromorphone 10 Mg/50 Ml-Ns) 10 mg DUMP GRADER DUMP GRADER COUNTS INCLUDE 234 BEDS AT THE [facility]; Protocol Stop: 02/08/19 21:29 Last Admin: 02/02/19 20:20 Dose: 10 mg Sodium Chloride (Normal Saline -) 1,000 mls @ 75 mls/hr IV ASDIR COUNTS INCLUDE 234 BEDS AT THE [facility] Last Admin: 02/02/19 17:48 Dose: 75 mls/hr Insulin Aspart (Novolog Vial Sliding Scale -) 1 vial SQ [facility] COUNTS INCLUDE 234 BEDS AT THE [facility]; Protocol Last Admin: 02/02/19 21:23 Dose: 8 units Insulin Detemir (Levemir Vial) 5 units SQ [facility] Last Admin: 02/02/19 21:23 Dose: 5 units Lisinopril (Prinivil) 2.5 mg PO DAILY COUNTS INCLUDE 234 BEDS AT THE [facility] Metoprolol Tartrate (Lopressor -) 25 mg PO BID COUNTS INCLUDE 234 BEDS AT THE [facility] Last Admin: 02/02/19 21:19 Dose: 25 mg Metoprolol Tartrate (Lopressor Injection -) 5 mg IVPUSH Q4H PRN PRN Reason: HYPERTENSION Mupirocin (Bactroban Ointment (For Decolonization) -) 1 applic NS BID COUNTS INCLUDE 234 BEDS AT THE [facility] Stop: 02/07/19 21:59 Last Admin: 02/02/19 21:19 Dose: 1 applic Ondansetron HCl (Zofran Injection) 4 mg IVPUSH Q4H PRN PRN Reason: NAUSEA AND/OR VOMITING Oxycodone HCl (Roxicodone -) 5 mg PO Q6H PRN PRN Reason: PAIN LEVEL 4 - 6 Oxycodone HCl (Roxicodone -) 10 mg PO Q6H PRN PRN Reason: PAIN LEVEL 7 - 10 Polyethylene Glycol (Miralax (For Daily Use) -) 17 gm PO DAILY COUNTS INCLUDE 234 BEDS AT THE [facility] Promethazine HCl (Phenergan Injection -) 12.5 mg IVPB Q6H PRN PRN Reason: NAUSEA AND/OR VOMITING Rivaroxaban (Xarelto) 15 mg PO BID COUNTS INCLUDE 234 BEDS AT THE [facility] Last Admin: 02/02/19 21:31 Dose: 15 mg - Objective Vital Signs: Vital Signs Temperature 98.1 F 02/02/19 16:30 Pulse Rate 131 H 02/02/19 20:20 Respiratory Rate 18 02/02/19 20:20 Blood Pressure 140/82 02/02/19 20:20 O2 Sat by Pulse Oximetry (%) 96 02/02/19 20:20 Constitutional: Yes: No Distress, Calm Eyes: Yes: WNL HENT: Yes: Atraumatic Neck: Yes: Supple Cardiovascular: Yes: Regular Rate and Rhythm Respiratory: Yes: Regular Gastrointestinal: Yes: Normal Bowel Sounds Labs: CBC, BMP 02/02/19 08:50 02/02/19 08:50 INR, PTT INR 2.24 (0.83-1.09) H 02/02/19 08:50 Fibrinogen 297.0 mg/dL (238-498) 02/02/19 08:50 Problem List - Problems (1) Arterial occlusion Assessment/Plan: Duplex ultrasound revealed right popliteal, and posterior tibial artery occlusion. CTA with runoff reveals occlusive thrombus in the right popliteal artery, with nonocclusive thrombus in distal portion of right superficial femoral artery. He is post op day #1 Right lower extremity angiogram, anterior tibial artery, peroneal artery, posterior tibial artery angioplasty pain management with life insurance salesperson Code(s): I70.90 - UNSPECIFIED ATHEROSCLEROSIS (2) CAD (coronary artery disease) Assessment/Plan: Cont asa Code(s): I25.10 - ATHSCL HEART DISEASE OF [place] CORONARY ARTERY W/O ANG PCTRS (3) Diabetes type 2, uncontrolled Assessment/Plan: Cont sliding scale w/ coverage Code(s): E11.65 - TYPE 2 DIABETES MELLITUS WITH HYPERGLYCEMIA (4) Hypertension Assessment/Plan: BP stable Cont metoprolol Code(s): I10 - ESSENTIAL (PRIMARY) HYPERTENSION (5) HLD (hyperlipidemia) Assessment/Plan: Cont lipitor Code(s): E78.5 - HYPERLIPIDEMIA, UNSPECIFIED (6) Prophylactic measure Assessment/Plan: diabetic diet full code Code(s): Z29.9 - ENCOUNTER FOR PROPHYLACTIC MEASURES, UNSPECIFIED Visit type - Emergency Visit Emergency Visit: Yes ED Registration Date: 01/24/19 Care time: The patient presented to the Emergency Department on the above date and was hospitalized for further evaluation of their emergent condition. - New Patient This patient is new to me today: No - Critical Care Critical Care patient: No - Discharge Referral Referred to [facility] No
[2019-02-02] MEDS ORDERED: INSULIN (LEVEMIR) 100 UNITS/ML UNITS SQ SCH (22:00)
[2019-02-03] MEDS: DOCUSATE SODIUM 100 MG CAPSULE (FP) PO SCH ×3 (06:33→21:14)
[2019-02-03] MEDS: INSULIN SLIDING SCALE (NOVOLOG) 1 VIAL SQ SCH ×4 (06:34→21:20)
[2019-02-03 07:13] LABS: BASO % 0.6 % (0-2.0); EOS % 2.1 % (0-4.5); HEMOGLOBIN 10.3 GM/dL (11.7-16.9); LYMPH % 15.6 % (8-40); MCH 26.1 pg (25.7-33.7); MCHC 33.2 g/dl (32.0-35.9); MEAN CELL VOLUME 78.7 fl (80-96); MEAN PLT VOLUME 7.2 fl (7.5-11.1); MONO % 10.9 % (3.8-10.2); NEUT % 70.8 % (42.8-82.8); PLATELET COUNT 576 K/MM3 (134-434); RBC 3.94 M/mm3 (4.00-5.60); RDW 14.5 % (11.9-15.9); WHITE BLOOD COUNT 14.4 K/mm3 (4.0-10.0)
[2019-02-03 07:21] LABS: BILIRUBIN,TOTAL 0.3 mg/dL (0.2-1); BLOOD UREA NITROGEN 11.2 mg/dL (7-18); CALCIUM 8.3 mg/dL (8.5-10.1); CREATININE 1.1 mg/dL (0.55-1.3); MAGNESIUM 2.1 mg/dL (1.8-2.4); POTASSIUM 4.6 mmol/L (3.5-5.1); TOT PROT 6.9 g/dl (6.4-8.2)
[2019-02-03 07:36] LABS: INR 3.99 (0.83-1.09); PROTHROMBIN TIME (PATIENT) 47.8 SEC (9.7-13.0)
--- NOTE | 2019-02-03 07:36 | PN ---
Progress Note (short form) - Note Progress Note: Coverage for Dr. Justice Peñaloza Chief Complaint: Events noted, notes reviewed, complaining of persistent right leg/foot discomfort, denies any chest pain or dyspnea improved History of Present Illness: Seen and examined in the ICU. Events noted, notes reviewed, complaining of persistent right leg/foot discomfort, denies any chest pain or dyspnea improved Post angiography and LUMBER SALVAGER, 02/02/2019 - Current Medication List Current Medications Acetaminophen (Tylenol -) 650 mg PO Q6H PRN PRN Reason: FEVER Acetaminophen (Ofirmev Injection -) 1,000 mg IVPB Q6H PRN PRN Reason: FEVER Last Admin: 02/02/19 20:29 Dose: 1,000 mg Aspirin (Asa -) 81 mg PO DAILY [facility] Atorvastatin Calcium (Lipitor -) 40 mg PO HS [facility] Last Admin: 02/02/19 21:19 Dose: 40 mg Chlorhexidine Gluconate (Hibiclens For Decolonization -) 1 applic TP [facility] Last Admin: 02/02/19 21:20 Dose: 1 applic Dexamethasone Sodium Phosphate (Decadron Injection -) 4 mg IVPUSH ONCE PRN PRN Reason: NAUSEA AND/OR VOMITING Diphenhydramine HCl (Benadryl Injection -) 12.5 mg IVPUSH ONCE PRN PRN Reason: FOR ITCHING Docusate Sodium (Colace -) 100 mg PO TID [facility] Last Admin: 02/03/19 06:33 Dose: 100 mg Hydromorphone HCl (Hydromorphone 10 Mg/50 Ml-Ns) 10 mg NIB ASSEMBLER NIB ASSEMBLER [facility]; Protocol Stop: 02/08/19 21:29 Last Admin: 02/02/19 20:20 Dose: 10 mg Sodium Chloride (Normal Saline -) 1,000 mls @ 75 mls/hr IV ASDIR [facility] Last Admin: 02/02/19 17:48 Dose: 75 mls/hr Insulin Aspart (Novolog Vial Sliding Scale -) 1 vial SQ [facility]; Protocol Last Admin: 02/03/19 06:34 Dose: 6 units Insulin Detemir (Levemir Vial) 5 units SQ [facility] Last Admin: 02/02/19 21:23 Dose: 5 units Lisinopril (Prinivil) 2.5 mg PO DAILY [facility] Metoprolol Tartrate (Lopressor -) 25 mg PO BID [facility] Last Admin: 02/02/19 21:19 Dose: 25 mg Metoprolol Tartrate (Lopressor Injection -) 5 mg IVPUSH Q4H PRN PRN Reason: HYPERTENSION Mupirocin (Bactroban Ointment (For Decolonization) -) 1 applic NS BID [facility] Stop: 02/07/19 21:59 Last Admin: 02/02/19 21:19 Dose: 1 applic Ondansetron HCl (Zofran Injection) 4 mg IVPUSH Q4H PRN PRN Reason: NAUSEA AND/OR VOMITING Oxycodone HCl (Roxicodone -) 5 mg PO Q6H PRN PRN Reason: PAIN LEVEL 4 - 6 Oxycodone HCl (Roxicodone -) 10 mg PO Q6H PRN PRN Reason: PAIN LEVEL 7 - 10 Polyethylene Glycol (Miralax (For Daily Use) -) 17 gm PO DAILY [facility] Promethazine HCl (Phenergan Injection -) 12.5 mg IVPB Q6H PRN PRN Reason: NAUSEA AND/OR VOMITING Rivaroxaban (Xarelto) 15 mg PO BID [facility] Last Admin: 02/02/19 21:31 Dose: 15 mg Review of Systems Constitutional: denies: Chills Cardiovascular: as noted above Respiratory: denies: Cough Gastrointestinal: denies: Nausea, Vomiting, Diarrhea, Constipation or Abdominal Pain Genitourinary: denies: Dysuria Musculoskeletal: denies: Joint Pain but reports Foot Pain Neurological: denies: Dizziness or Headache - Objective Vital Signs: Last Vital Signs Temp Pulse Resp BP Pulse Ox 98.6 F 122 H 10 150/52 L 96 02/03/19 06:00 02/03/19 06:00 02/03/19 06:00 02/03/19 06:00 02/02/19 22:00 Intake & Output 01/31/19 02/01/19 02/02/19 02/03/19 23:59 23:59 23:59 23:59 Intake Total 700 1790 2760 Output Total 700 1510 2750 850 Balance 0 280 10 -850 Weight 123 lb 9.6 oz Neck: Supple Negative JVD No Bruit Cardiovascular: S1 S2 Regular Rate and Rhythm Tachycardia Respiratory: Diminished Breath Sounds at the Bases Gastrointestinal: Soft Benign Normal Bowel Sounds Ext: Trace Edema Labs: CBC, BMP 02/03/19 05:20 Assessment/Plan ASSESSMENT: DM, obesity, HTN, hyperlipidemia, cigarettes, who presents to ER for evaluation of right lower leg pain worsening ove 1. PAD right lower extremity arterial occlusion post TPA, post angiography/LUMBER SALVAGER persistent pain 2. CAD post [place]/PCI/stent angina pectoris clinically stable 3. Diastolic LV dysfunction with class 0 NYHA classification LV failure 4. Sinus tachycardia probably secondary to pain 5. HTN 6. DM 7. Hypercholesterolemia 8. DVT 9. Tobacco abuse PLAN: 1. Continue ASA and Xarelto with caution and close monitoring of CBC 2. Continue Lisinopril, hemodynamics permitting 3. Continue Lopressor, hemodynamics permitting and titrate dosage as needed 4. Continue Lipitor 5. Pain management as per the primary team Hernando Narayan M.D.
[2019-02-03] MEDS ORDERED: PT OWN MED DRAWER 7, Y5N ONE (09:08)
[2019-02-03] MEDS: ASPIRIN 81 MG CHEWABLE TABLETS PO SCH (09:26)
[2019-02-03] MEDS: MUPIROCIN 2% TOPICAL OINTMENT FOR DECOLONIZATION NS SCH ×2 (09:26→21:15)
[2019-02-03] MEDS: METOPROLOL TARTRATE 25 MG TABLET (FP) PO SCH ×2 (09:27→21:16)
[2019-02-03] MEDS: POLYETHYLENE GLYCOL 3350 119 GM BTL PO SCH ×2 (09:27→21:56)
[2019-02-03] MEDS: LISINOPRIL 5 MG TABLET (FP) PO SCH (09:27)
[2019-02-03] MEDS: SODIUM CHLORIDE 1,000 ML IV SCH ×2 (09:28→19:03)
[2019-02-03] MEDS: RIVAROXABAN 15 MG TABLET PO SCH ×2 (09:28→21:57)
[2019-02-03] MEDS: oxyCODONE HCL 5 MG TABLET PO PRN ×3 (10:07→21:14)
--- NOTE | 2019-02-03 11:28 | PN ---
Progress Note, Physician History of Present Illness: stable feels better leg warming toe has warmed up dopplerable pulses - Current Medication List Current Medications: Active Medications Acetaminophen (Tylenol -) 650 mg PO Q6H PRN PRN Reason: FEVER Acetaminophen (Ofirmev Injection -) 1,000 mg IVPB Q6H PRN PRN Reason: FEVER Last Admin: 02/02/19 20:29 Dose: 1,000 mg Aspirin (Asa -) 81 mg PO DAILY [facility] Last Admin: 02/03/19 09:26 Dose: 81 mg Atorvastatin Calcium (Lipitor -) 40 mg PO HS [facility] Last Admin: 02/02/19 21:19 Dose: 40 mg Chlorhexidine Gluconate (Hibiclens For Decolonization -) 1 applic TP HS [facility] Last Admin: 02/02/19 21:20 Dose: 1 applic Dexamethasone Sodium Phosphate (Decadron Injection -) 4 mg IVPUSH ONCE PRN PRN Reason: NAUSEA AND/OR VOMITING Diphenhydramine HCl (Benadryl Injection -) 12.5 mg IVPUSH ONCE PRN PRN Reason: FOR ITCHING Docusate Sodium (Colace -) 100 mg PO TID [facility] Last Admin: 02/03/19 06:33 Dose: 100 mg Hydromorphone HCl (Hydromorphone 10 Mg/50 Ml-Ns) 10 mg HUMAN SERVICES PROFESSIONAL HUMAN SERVICES PROFESSIONAL [facility]; Protocol Stop: 02/08/19 21:29 Last Admin: 02/02/19 20:20 Dose: 10 mg Sodium Chloride (Normal Saline -) 1,000 mls @ 75 mls/hr IV ASDIR [facility] Last Admin: 02/03/19 09:28 Dose: 75 mls/hr Insulin Aspart (Novolog Vial Sliding Scale -) 1 vial SQ [facility]; Protocol Last Admin: 02/03/19 06:34 Dose: 6 units Insulin Detemir (Levemir Vial) 5 units SQ [facility] Last Admin: 02/02/19 21:23 Dose: 5 units Lisinopril (Prinivil) 2.5 mg PO DAILY [facility] Last Admin: 02/03/19 09:27 Dose: 2.5 mg Metoprolol Tartrate (Lopressor -) 25 mg PO BID [facility] Last Admin: 02/03/19 09:27 Dose: 25 mg Metoprolol Tartrate (Lopressor Injection -) 5 mg IVPUSH Q4H PRN PRN Reason: HYPERTENSION Last Admin: 02/03/19 10:19 Dose: 5 mg Mupirocin (Bactroban Ointment (For Decolonization) -) 1 applic NS BID [facility] Stop: 02/07/19 21:59 Last Admin: 02/03/19 09:26 Dose: 1 applic Ondansetron HCl (Zofran Injection) 4 mg IVPUSH Q4H PRN PRN Reason: NAUSEA AND/OR VOMITING Oxycodone HCl (Roxicodone -) 5 mg PO Q6H PRN PRN Reason: PAIN LEVEL 4 - 6 Oxycodone HCl (Roxicodone -) 10 mg PO Q6H PRN PRN Reason: PAIN LEVEL 7 - 10 Last Admin: 02/03/19 10:07 Dose: 10 mg Polyethylene Glycol (Miralax (For Daily Use) -) 17 gm PO DAILY [facility] Last Admin: 02/03/19 09:27 Dose: Not Given Promethazine HCl (Phenergan Injection -) 12.5 mg IVPB Q6H PRN PRN Reason: NAUSEA AND/OR VOMITING Rivaroxaban (Xarelto) 15 mg PO BID [facility] Last Admin: 02/03/19 09:28 Dose: 15 mg - Objective Vital Signs: Vital Signs Temperature 98.5 F 02/03/19 10:17 Pulse Rate 128 H 02/03/19 10:19 Respiratory Rate 8 L 02/03/19 10:17 Blood Pressure 151/83 02/03/19 10:19 O2 Sat by Pulse Oximetry (%) 96 02/03/19 08:36 Constitutional: Yes: No Distress, Calm Cardiovascular: Yes: S1, S2 Respiratory: Yes: Regular, CTA Bilaterally Gastrointestinal: Yes: Normal Bowel Sounds, Soft Musculoskeletal: Yes: WNL Extremities: Yes: Other (warm) Neurological: Yes: Alert, Oriented Psychiatric: Yes: Alert, Oriented Labs: CBC, BMP 02/03/19 05:20 02/03/19 05:20 INR, PTT INR 3.99 (0.83-1.09) H 02/03/19 05:20 Fibrinogen 297.0 mg/dL (238-498) 02/02/19 08:50 Assessment/Plan Problem List - Problems (1) Arterial occlusion Code(s): I70.90 - UNSPECIFIED ATHEROSCLEROSIS (2) CAD (coronary artery disease) Code(s): I25.10 - ATHSCL HEART DISEASE OF [place] CORONARY ARTERY W/O ANG PCTRS (3) H/O heart artery stent Code(s): Z95.5 - PRESENCE OF CORONARY ANGIOPLASTY IMPLANT AND GRAFT (4) HLD (hyperlipidemia) Code(s): E78.5 - HYPERLIPIDEMIA, UNSPECIFIED (5) Hematuria Code(s): R31.9 - HEMATURIA, UNSPECIFIED (6) Obesity Code(s): E66.9 - OBESITY, UNSPECIFIED (7) PAD (peripheral artery disease) Code(s): I73.9 - PERIPHERAL VASCULAR DISEASE, UNSPECIFIED (8) Right leg pain Code(s): M79.604 - PAIN IN RIGHT LEG (9) Smokes cigarettes Code(s): F17.210 - NICOTINE DEPENDENCE, CIGARETTES, UNCOMPLICATED (10) Diabetes type 2, uncontrolled Code(s): E11.65 - TYPE 2 DIABETES MELLITUS WITH HYPERGLYCEMIA (11) Hypertension Code(s): I10 - ESSENTIAL (PRIMARY) HYPERTENSION Assessment/Plan 49 y.o. male with PMH of DVT, RLE arterial occlusion s/p TPA (has not been taking Xarelto due to lack of insurance coverage), obesity, CAD s/p stent, CHF, HTN, HLD, DM presented with c/o severe RLE pain x 1 wk and foot feeling cold. Noted to have Rt popliteal and tibial arterial occlusion and initially underwent thrombolysis but then subsequently had SFA angioplasty with stent and tibial artery angioplasty on 01/25/19. Pt noted to have increasing wbc count since yesterday and mild temp elevation to 99.3F. +recent hematuria Leukocytosis RLE popliteal and tibial artery occlusion s/p angioplasty/stent Hematuria Hx of RLE arterial occlusion s/p TPA CAD s/p stent CHF DM HTN HLD Obesity plan continue current mgmt monitor the leg rest as per vascular and icu cc 40 min
--- NOTE | 2019-02-03 11:43 | PN ---
Progress Note (short form) - Note Progress Note: PULMONARY/CRITICAL CARE PROGRESS NOTE: SUBJECTIVE: Pt seen and examined in the ICU. Good pulses by doppler in R foot. Foot is warm. No complaints OBJECTIVE: Current Medications Acetaminophen (Tylenol -) 650 mg PO Q6H PRN PRN Reason: FEVER Acetaminophen (Ofirmev Injection -) 1,000 mg IVPB Q6H PRN PRN Reason: FEVER Last Admin: 02/02/19 20:29 Dose: 1,000 mg Aspirin (Asa -) 81 mg PO DAILY [facility] Last Admin: 02/03/19 09:26 Dose: 81 mg Atorvastatin Calcium (Lipitor -) 40 mg PO HS [facility] Last Admin: 02/02/19 21:19 Dose: 40 mg Chlorhexidine Gluconate (Hibiclens For Decolonization -) 1 applic TP HS [facility] Last Admin: 02/02/19 21:20 Dose: 1 applic Dexamethasone Sodium Phosphate (Decadron Injection -) 4 mg IVPUSH ONCE PRN PRN Reason: NAUSEA AND/OR VOMITING Diphenhydramine HCl (Benadryl Injection -) 12.5 mg IVPUSH ONCE PRN PRN Reason: FOR ITCHING Docusate Sodium (Colace -) 100 mg PO TID [facility] Last Admin: 02/03/19 06:33 Dose: 100 mg Hydromorphone HCl (Hydromorphone 10 Mg/50 Ml-Ns) 10 mg FINANCIAL REPRESENTATIVE FINANCIAL REPRESENTATIVE [facility]; Protocol Stop: 02/08/19 21:29 Last Admin: 02/02/19 20:20 Dose: 10 mg Sodium Chloride (Normal Saline -) 1,000 mls @ 75 mls/hr IV ASDIR [facility] Last Admin: 02/03/19 09:28 Dose: 75 mls/hr Insulin Aspart (Novolog Vial Sliding Scale -) 1 vial SQ [facility]; Protocol Last Admin: 02/03/19 06:34 Dose: 6 units Insulin Detemir (Levemir Vial) 5 units SQ HS [facility] Last Admin: 02/02/19 21:23 Dose: 5 units Lisinopril (Prinivil) 2.5 mg PO DAILY [facility] Last Admin: 02/03/19 09:27 Dose: 2.5 mg Metoprolol Tartrate (Lopressor -) 25 mg PO BID [facility] Last Admin: 02/03/19 09:27 Dose: 25 mg Metoprolol Tartrate (Lopressor Injection -) 5 mg IVPUSH Q4H PRN PRN Reason: HYPERTENSION Last Admin: 02/03/19 10:19 Dose: 5 mg Mupirocin (Bactroban Ointment (For Decolonization) -) 1 applic NS BID [facility] Stop: 02/07/19 21:59 Last Admin: 02/03/19 09:26 Dose: 1 applic Ondansetron HCl (Zofran Injection) 4 mg IVPUSH Q4H PRN PRN Reason: NAUSEA AND/OR VOMITING Oxycodone HCl (Roxicodone -) 5 mg PO Q6H PRN PRN Reason: PAIN LEVEL 4 - 6 Oxycodone HCl (Roxicodone -) 10 mg PO Q6H PRN PRN Reason: PAIN LEVEL 7 - 10 Last Admin: 02/03/19 10:07 Dose: 10 mg Polyethylene Glycol (Miralax (For Daily Use) -) 17 gm PO DAILY [facility] Last Admin: 02/03/19 09:27 Dose: Not Given Promethazine HCl (Phenergan Injection -) 12.5 mg IVPB Q6H PRN PRN Reason: NAUSEA AND/OR VOMITING Rivaroxaban (Xarelto) 15 mg PO BID [facility] Last Admin: 02/03/19 09:28 Dose: 15 mg Vital Signs Temp 98.5 F 02/03/19 10:17 Pulse 128 H 02/03/19 10:19 Resp 8 L 02/03/19 10:17 BP 151/83 02/03/19 10:19 Pulse Ox 96 02/03/19 08:36 Intake & Output 02/02/19 02/03/19 02/03/19 18:59 06:59 18:59 Intake Total 1360 500 Output Total 1250 1250 Balance 110 -750 Weight 56.064 kg 123.377 kg Intake: IV 1360 Alteplase 140 HEPARIN-1/2NS 25,000 120 UNITS/500 25,000 units In 500 ml @ 10 mls/hr IVPB ONCE ONE Rx#:[id number] Lactated Ringers Solution 875 1,000 ml @ 125 mls/hr IV ASDIR [facility] Rx#: [id number] Normal Saline - 1,000 ml 225 @ 75 mls/hr IV ASDIR [facility] Rx#:[id number] Oral 0 500 Output: Urine 1200 1250 Void 1200 1250 Estimated Blood Loss 50 Other: Voiding Method Urinal Urinal Urinal Bowel Movement No Weight Measurement Method [facility] Gen: NAD at rest Heart: RRR Lung: clear lungs Abd: soft, nontender Ext: no edema, warm feet, +doppler pulses, groin soft CBC, BMP 02/03/19 05:20 02/03/19 05:20 ASSESSMENT AND PLAN: Right Popliteal Artery/Posterior Tibial Artery Thrombus s/p RLE Anigiogram/SFA Angioplasty/Stent/Tibial Artery Angioplasty 01/25 RLE Ischemia s/p RLE Angiogram/tPA infusion 02/01 CAD s/p PCI stenting HTN DM - pulse checks - continue anticoagulation - pain control - O2 to keep SpO2 >90% Transfer to the floor Rolf Richards Pulm/Critical Care STAVE GRADER
[2019-02-03] MEDS ORDERED: ACETAMINOPHEN 1000 MG/100 ML VIAL (NON FORMULARY) IVPB PRN (15:34)
--- NOTE | 2019-02-03 15:53 | PN ---
Progress Note (short form) - Note Progress Note: Anesthesiology Pain Service 49 y.o. POD#2 s/p angiogram with plasty and stent placement. On post-op PROP AND EFFECTS DESIGNER. He is resting comfortably in ICU. He has not been using PROP AND EFFECTS DESIGNER over the last several hours and has been managed with PO analgesics. VSS. 49 y.o. man with stable post-operative course and improving pain. Will d/c PROP AND EFFECTS DESIGNER and pt. will continue on PO meds as needed. D/w pt. and RN.
[2019-02-03] MEDS ORDERED: INSULIN (LEVEMIR) 100 UNITS/ML UNITS SQ SCH (17:05)
--- NOTE | 2019-02-03 17:08 | PN ---
Progress Note, Physician Chief Complaint: cold right foot History of Present Illness: Patient is a 49 year old male with a significant past medical history of diabetes, CAD(s/p stents), HTN, presents to [facility] with c/o of a cold R foot. No change in sensations, no weakness of any part of the body, no facial drop, no prior episodes of similar pain in the past, no chest pain or SOB. He is post op day #1 Right lower extremity angiogram, anterior tibial artery, peroneal artery, posterior tibial artery angioplasty - Current Medication List Current Medications: Active Medications Acetaminophen (Ofirmev Injection -) 1,000 mg IVPB Q6H PRN PRN Reason: PAIN OR FEVER Last Admin: 02/03/19 15:49 Dose: 1,000 mg Aspirin (Asa -) 81 mg PO DAILY [facility] Last Admin: 02/03/19 09:26 Dose: 81 mg Atorvastatin Calcium (Lipitor -) 40 mg PO HS [facility] Last Admin: 02/02/19 21:19 Dose: 40 mg Chlorhexidine Gluconate (Hibiclens For Decolonization -) 1 applic TP [facility] Last Admin: 02/02/19 21:20 Dose: 1 applic Dexamethasone Sodium Phosphate (Decadron Injection -) 4 mg IVPUSH ONCE PRN PRN Reason: NAUSEA AND/OR VOMITING Diphenhydramine HCl (Benadryl Injection -) 12.5 mg IVPUSH ONCE PRN PRN Reason: FOR ITCHING Docusate Sodium (Colace -) 100 mg PO TID [facility] Last Admin: 02/03/19 14:13 Dose: 100 mg Sodium Chloride (Normal Saline -) 1,000 mls @ 75 mls/hr IV ASDIR [facility] Last Admin: 02/03/19 09:28 Dose: 75 mls/hr Insulin Aspart (Novolog Vial Sliding Scale -) 1 vial SQ [facility]; Protocol Insulin Detemir (Levemir Vial) 10 units SQ [facility] Lisinopril (Prinivil) 2.5 mg PO DAILY [facility] Last Admin: 02/03/19 09:27 Dose: 2.5 mg Metoprolol Tartrate (Lopressor -) 25 mg PO BID [facility] Last Admin: 02/03/19 09:27 Dose: 25 mg Metoprolol Tartrate (Lopressor Injection -) 5 mg IVPUSH Q4H PRN PRN Reason: HYPERTENSION Last Admin: 02/03/19 10:19 Dose: 5 mg Mupirocin (Bactroban Ointment (For Decolonization) -) 1 applic NS BID [facility] Stop: 02/07/19 21:59 Last Admin: 02/03/19 09:26 Dose: 1 applic Ondansetron HCl (Zofran Injection) 4 mg IVPUSH Q4H PRN PRN Reason: NAUSEA AND/OR VOMITING Oxycodone HCl (Roxicodone -) 5 mg PO Q6H PRN PRN Reason: PAIN LEVEL 4 - 6 Last Admin: 02/03/19 14:13 Dose: 5 mg Oxycodone HCl (Roxicodone -) 10 mg PO Q6H PRN PRN Reason: PAIN LEVEL 7 - 10 Last Admin: 02/03/19 10:07 Dose: 10 mg Polyethylene Glycol (Miralax (For Daily Use) -) 17 gm PO DAILY [facility] Last Admin: 02/03/19 09:27 Dose: Not Given Promethazine HCl (Phenergan Injection -) 12.5 mg IVPB Q6H PRN PRN Reason: NAUSEA AND/OR VOMITING Rivaroxaban (Xarelto) 15 mg PO BID [facility] Last Admin: 02/03/19 09:28 Dose: 15 mg - Objective Vital Signs: Vital Signs Temperature 98.7 F 02/03/19 14:00 Pulse Rate 120 H 02/03/19 14:00 Respiratory Rate 21 H 02/03/19 14:00 Blood Pressure 135/85 02/03/19 14:00 O2 Sat by Pulse Oximetry (%) 96 02/03/19 08:36 Constitutional: Yes: Well Nourished, No Distress, Calm HENT: Yes: Atraumatic Neck: Yes: Supple Cardiovascular: Yes: Tachycardia Gastrointestinal: Yes: WNL ...Rectal Exam: Yes: Deferred Extremities: Yes: Other (right foot s/p angioplasty, right foot warm to touch) Edema: Yes Peripheral Pulses WNL: Yes Integumentary: Yes: WNL Wound/Incision: Yes: Clean/Dry Labs: CBC, BMP 02/03/19 05:20 02/03/19 05:20 INR, PTT INR 3.99 (0.83-1.09) H 02/03/19 05:20 Fibrinogen 297.0 mg/dL (238-498) 02/02/19 08:50 Problem List - Problems (1) Arterial occlusion Assessment/Plan: Duplex ultrasound revealed right popliteal, and posterior tibial artery occlusion. CTA with runoff reveals occlusive thrombus in the right popliteal artery, with nonocclusive thrombus in distal portion of right superficial femoral artery. He is post op day #2 Right lower extremity angiogram, anterior tibial artery, peroneal artery, posterior tibial artery angioplasty pain management with erosion control coordinator on xarelto Code(s): I70.90 - UNSPECIFIED ATHEROSCLEROSIS (2) CAD (coronary artery disease) Assessment/Plan: Cont asa Code(s): I25.10 - ATHSCL HEART DISEASE OF [place] CORONARY ARTERY W/O ANG PCTRS (3) Diabetes type 2, uncontrolled Assessment/Plan: Cont sliding scale w/ coverage tightened sliding scale and increased levemir Code(s): E11.65 - TYPE 2 DIABETES MELLITUS WITH HYPERGLYCEMIA (4) Hypertension Assessment/Plan: BP stable Cont metoprolol Code(s): I10 - ESSENTIAL (PRIMARY) HYPERTENSION (5) HLD (hyperlipidemia) Assessment/Plan: Cont lipitor Code(s): E78.5 - HYPERLIPIDEMIA, UNSPECIFIED (6) Prophylactic measure Assessment/Plan: diabetic diet full code Code(s): Z29.9 - ENCOUNTER FOR PROPHYLACTIC MEASURES, UNSPECIFIED Visit type - Emergency Visit Emergency Visit: Yes ED Registration Date: 01/24/19 Care time: The patient presented to the Emergency Department on the above date and was hospitalized for further evaluation of their emergent condition. - New Patient This patient is new to me today: No - Critical Care Critical Care patient: No - Discharge Referral Referred to [facility] Med P.C.: No
[2019-02-03] MEDS: ACETAMINOPHEN 325 MG TABLET (FP) PO PRN (19:15)
[2019-02-03] MEDS: ATORVASTATIN CA 40 MG TABLET (FP) PO SCH (21:14)
[2019-02-03] MEDS: CHLORHEXIDINE GLUCONATE 4% CLEANSER FOR DECOLONIZATION TP SCH (21:16)
[2019-02-04] MEDS: ACETAMINOPHEN 325 MG TABLET (FP) PO PRN ×2 (03:02→21:39)
--- NOTE | 2019-02-04 06:14 | PN ---
Progress Note (short form) - Note Progress Note: PULMONARY/CRITICAL CARE PROGRESS NOTE: SUBJECTIVE: Pt seen and examined in the ICU. 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 Medications Acetaminophen (Tylenol -) 650 mg PO Q4H PRN PRN Reason: FEVER Last Admin: 02/04/19 03:02 Dose: 650 mg Aspirin (Asa -) 81 mg PO DAILY [facility] Last Admin: 02/03/19 09:26 Dose: 81 mg Atorvastatin Calcium (Lipitor -) 40 mg PO HS [facility] Last Admin: 02/03/19 21:14 Dose: 40 mg Chlorhexidine Gluconate (Hibiclens For Decolonization -) 1 applic TP HS [facility] Last Admin: 02/03/19 21:16 Dose: 1 applic Dexamethasone Sodium Phosphate (Decadron Injection -) 4 mg IVPUSH ONCE PRN PRN Reason: NAUSEA AND/OR VOMITING Diphenhydramine HCl (Benadryl Injection -) 12.5 mg IVPUSH ONCE PRN PRN Reason: FOR ITCHING Docusate Sodium (Colace -) 100 mg PO TID [facility] Last Admin: 02/03/19 21:14 Dose: 100 mg Insulin Aspart (Novolog Vial Sliding Scale -) 1 vial SQ [facility]; Protocol Last Admin: 02/03/19 21:20 Dose: 10 units Insulin Detemir (Levemir Vial) 10 units SQ [facility] Last Admin: 02/03/19 21:18 Dose: 10 units Lisinopril (Prinivil) 2.5 mg PO DAILY [facility] Last Admin: 02/03/19 09:27 Dose: 2.5 mg Metoprolol Tartrate (Lopressor -) 25 mg PO BID [facility] Last Admin: 02/03/19 21:16 Dose: 25 mg Metoprolol Tartrate (Lopressor Injection -) 5 mg IVPUSH Q4H PRN PRN Reason: HYPERTENSION Last Admin: 02/03/19 10:19 Dose: 5 mg Mupirocin (Bactroban Ointment (For Decolonization) -) 1 applic NS BID [facility] Stop: 02/07/19 21:59 Last Admin: 02/03/19 21:15 Dose: 1 applic Ondansetron HCl (Zofran Injection) 4 mg IVPUSH Q4H PRN PRN Reason: NAUSEA AND/OR VOMITING Oxycodone HCl (Roxicodone -) 5 mg PO Q6H PRN PRN Reason: PAIN LEVEL 4 - 6 Last Admin: 02/03/19 14:13 Dose: 5 mg Oxycodone HCl (Roxicodone -) 10 mg PO Q6H PRN PRN Reason: PAIN LEVEL 7 - 10 Last Admin: 02/03/19 21:14 Dose: 10 mg Polyethylene Glycol (Miralax (For Daily Use) -) 17 gm PO DAILY [facility] Last Admin: 02/03/19 09:27 Dose: Not Given Polyethylene Glycol (Miralax (For Daily Use) -) 17 gm PO BID [facility] Last Admin: 02/03/19 21:56 Dose: 17 gm Promethazine HCl (Phenergan Injection -) 12.5 mg IVPB Q6H PRN PRN Reason: NAUSEA AND/OR VOMITING Rivaroxaban (Xarelto) 15 mg PO BID [facility] Last Admin: 02/03/19 21:57 Dose: 15 mg Vital Signs Temp 101.2 F H 02/03/19 19:05 Pulse 109 H 02/03/19 23:00 Resp 24 H 02/03/19 23:00 BP 129/76 02/03/19 23:00 Pulse Ox 96 02/03/19 20:46 Intake & Output 02/03/19 02/03/19 02/04/19 06:59 18:59 06:59 Intake Total 500 2300 Output Total 1250 2000 900 Balance -750 300 -900 Weight 56.064 kg 123.377 kg 122.8 kg Intake: IV 750 normal saline 750 IVPB 350 Oral 500 1200 Output: Urine 1250 2000 900 Void 1250 2000 900 Other: Voiding Method Urinal Urinal Urinal Bowel Movement No No Weight Measurement Method Built in [facility] Built in [facility] Gen: NAD at rest Heart: RRR Lung: clear lungs Abd: soft, nontender Ext: no edema, warm feet, +doppler pulses, groin soft CBC, BMP 02/03/19 05:20 02/03/19 05:20 ASSESSMENT AND PLAN: Right Popliteal Artery/Posterior Tibial Artery Thrombus s/p RLE Anigiogram/SFA Angioplasty/Stent/Tibial Artery Angioplasty 01/25 RLE Ischemia s/p RLE Angiogram/tPA infusion 02/01 CAD s/p PCI stenting HTN DM - antibiotics per ID - pulse checks - continue anticoagulation - pain control - O2 to keep SpO2 >90% Transfer to the floor 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
[2019-02-04] MEDS: INSULIN SLIDING SCALE (NOVOLOG) 1 VIAL SQ SCH ×4 (06:29→21:40)
[2019-02-04] MEDS: DOCUSATE SODIUM 100 MG CAPSULE (FP) PO SCH ×3 (06:29→21:39)
--- NOTE | 2019-02-04 07:50 | PN ---
Progress Note (short form) - Note Progress Note: Coverage for Dr. Justice Peñaloza Chief Complaint: Events noted, notes reviewed, complaining of persistent right leg/foot discomfort but improved, denies any chest pain or dyspnea improved History of Present Illness: Seen and examined in the ICU. 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, 02/02/2019 - Current Medication List Current Medications Acetaminophen (Tylenol -) 650 mg PO Q4H PRN PRN Reason: FEVER Last Admin: 02/04/19 03:02 Dose: 650 mg Aspirin (Asa -) 81 mg PO DAILY [facility] Last Admin: 02/03/19 09:26 Dose: 81 mg Atorvastatin Calcium (Lipitor -) 40 mg PO HS [facility] Last Admin: 02/03/19 21:14 Dose: 40 mg Chlorhexidine Gluconate (Hibiclens For Decolonization -) 1 applic TP [facility] Last Admin: 02/03/19 21:16 Dose: 1 applic Dexamethasone Sodium Phosphate (Decadron Injection -) 4 mg IVPUSH ONCE PRN PRN Reason: NAUSEA AND/OR VOMITING Diphenhydramine HCl (Benadryl Injection -) 12.5 mg IVPUSH ONCE PRN PRN Reason: FOR ITCHING Docusate Sodium (Colace -) 100 mg PO TID [facility] Last Admin: 02/04/19 06:29 Dose: 100 mg Insulin Aspart (Novolog Vial Sliding Scale -) 1 vial SQ [facility]; Protocol Last Admin: 02/04/19 06:29 Dose: 8 units Insulin Detemir (Levemir Vial) 10 units SQ [facility] Last Admin: 02/03/19 21:18 Dose: 10 units Lisinopril (Prinivil) 2.5 mg PO DAILY [facility] Last Admin: 02/03/19 09:27 Dose: 2.5 mg Metoprolol Tartrate (Lopressor -) 25 mg PO BID [facility] Last Admin: 02/03/19 21:16 Dose: 25 mg Metoprolol Tartrate (Lopressor Injection -) 5 mg IVPUSH Q4H PRN PRN Reason: HYPERTENSION Last Admin: 02/03/19 10:19 Dose: 5 mg Mupirocin (Bactroban Ointment (For Decolonization) -) 1 applic NS BID [facility] Stop: 02/07/19 21:59 Last Admin: 02/03/19 21:15 Dose: 1 applic Ondansetron HCl (Zofran Injection) 4 mg IVPUSH Q4H PRN PRN Reason: NAUSEA AND/OR VOMITING Oxycodone HCl (Roxicodone -) 5 mg PO Q6H PRN PRN Reason: PAIN LEVEL 4 - 6 Last Admin: 02/03/19 14:13 Dose: 5 mg Oxycodone HCl (Roxicodone -) 10 mg PO Q6H PRN PRN Reason: PAIN LEVEL 7 - 10 Last Admin: 02/03/19 21:14 Dose: 10 mg Polyethylene Glycol (Miralax (For Daily Use) -) 17 gm PO DAILY [facility] Last Admin: 02/03/19 09:27 Dose: Not Given Polyethylene Glycol (Miralax (For Daily Use) -) 17 gm PO BID [facility] Last Admin: 02/03/19 21:56 Dose: 17 gm Promethazine HCl (Phenergan Injection -) 12.5 mg IVPB Q6H PRN PRN Reason: NAUSEA AND/OR VOMITING Rivaroxaban (Xarelto) 15 mg PO BID [facility] Last Admin: 02/03/19 21:57 Dose: 15 mg Review of Systems Constitutional: denies: Chills Cardiovascular: as noted above Respiratory: denies: Cough Gastrointestinal: denies: Nausea, Vomiting, Diarrhea, Constipation or Abdominal Pain Genitourinary: denies: Dysuria Musculoskeletal: denies: Joint Pain but reports Foot Pain Neurological: denies: Dizziness or Headache - Objective Vital Signs: Last Vital Signs Temp Pulse Resp BP Pulse Ox 98.6 F 111 H 16 118/82 96 02/04/19 05:00 02/04/19 05:00 02/04/19 05:00 02/04/19 05:00 02/03/19 20:46 Intake & Output 02/01/19 02/02/19 02/03/19 02/04/19 23:59 23:59 23:59 23:59 Intake Total 1790 2760 2300 Output Total 1510 2750 2850 900 Balance 280 10 550 -900 Weight 272 lb 270 lb 11.642 oz Neck: Supple Negative JVD No Bruit Cardiovascular: S1 S2 Regular Rate and Rhythm Tachycardia Respiratory: Diminished Breath Sounds at the Bases Gastrointestinal: Soft Benign Normal Bowel Sounds Ext: Trace Edema Labs: CBC, BMP 02/03/19 05:20 02/03/19 05:20 Assessment/Plan ASSESSMENT: 1. PAD right lower extremity arterial occlusion post TPA, post angiography/TEAROOM HOSTESS persistent pain- clinically improving 2. CAD post VA/PCI/stent angina pectoris clinically stable 3. Diastolic LV dysfunction with class 0 NYHA classification LV failure 4. Sinus tachycardia probably secondary to pain 5. HTN 6. DM 7. Hypercholesterolemia 8. DVT 9. Tobacco abuse PLAN: 1. Continue ASA and Xarelto with caution and close monitoring of CBC 2. Continue Lisinopril, hemodynamics permitting 3. Continue Lopressor, hemodynamics permitting and titrate dosage as needed 4. Continue Lipitor 5. Pain management as per the primary team Hernando Narayan M.D.
[2019-02-04] MEDS: ASPIRIN 81 MG CHEWABLE TABLETS PO SCH (09:29)
[2019-02-04] MEDS: RIVAROXABAN 15 MG TABLET PO SCH ×2 (09:29→21:40)
[2019-02-04] MEDS: LISINOPRIL 5 MG TABLET (FP) PO SCH (09:29)
[2019-02-04] MEDS: METOPROLOL TARTRATE 25 MG TABLET (FP) PO SCH ×2 (09:29→21:46)
[2019-02-04] MEDS: POLYETHYLENE GLYCOL 3350 119 GM BTL PO SCH ×3 (09:32→21:41)
[2019-02-04] MEDS: MUPIROCIN 2% TOPICAL OINTMENT FOR DECOLONIZATION NS SCH ×2 (09:40→21:40)
--- NOTE | 2019-02-04 10:46 | PN ---
Progress Note, Physician History of Present Illness: stable no new issues leg warm patient had fever - Current Medication List Current Medications: Active Medications Acetaminophen (Tylenol -) 650 mg PO Q4H PRN PRN Reason: FEVER Last Admin: 02/04/19 03:02 Dose: 650 mg Aspirin (Asa -) 81 mg PO DAILY [facility] Last Admin: 02/04/19 09:29 Dose: 81 mg Atorvastatin Calcium (Lipitor -) 40 mg PO [facility] Last Admin: 02/03/19 21:14 Dose: 40 mg Chlorhexidine Gluconate (Hibiclens For Decolonization -) 1 applic TP [facility] Last Admin: 02/03/19 21:16 Dose: 1 applic Dexamethasone Sodium Phosphate (Decadron Injection -) 4 mg IVPUSH ONCE PRN PRN Reason: NAUSEA AND/OR VOMITING Diphenhydramine HCl (Benadryl Injection -) 12.5 mg IVPUSH ONCE PRN PRN Reason: FOR ITCHING Docusate Sodium (Colace -) 100 mg PO TID [facility] Last Admin: 02/04/19 06:29 Dose: 100 mg Insulin Aspart (Novolog Vial Sliding Scale -) 1 vial SQ [facility]; Protocol Last Admin: 02/04/19 10:01 Dose: 8 units Insulin Detemir (Levemir Vial) 10 units SQ [facility] Last Admin: 02/03/19 21:18 Dose: 10 units Lisinopril (Prinivil) 2.5 mg PO DAILY [facility] Last Admin: 02/04/19 09:29 Dose: 2.5 mg Metoprolol Tartrate (Lopressor -) 25 mg PO BID [facility] Last Admin: 02/04/19 09:29 Dose: 25 mg Metoprolol Tartrate (Lopressor Injection -) 5 mg IVPUSH Q4H PRN PRN Reason: HYPERTENSION Last Admin: 02/03/19 10:19 Dose: 5 mg Mupirocin (Bactroban Ointment (For Decolonization) -) 1 applic NS BID [facility] Stop: 02/07/19 21:59 Last Admin: 02/04/19 09:40 Dose: 1 applic Ondansetron HCl (Zofran Injection) 4 mg IVPUSH Q4H PRN PRN Reason: NAUSEA AND/OR VOMITING Oxycodone HCl (Roxicodone -) 5 mg PO Q6H PRN PRN Reason: PAIN LEVEL 4 - 6 Last Admin: 02/03/19 14:13 Dose: 5 mg Oxycodone HCl (Roxicodone -) 10 mg PO Q6H PRN PRN Reason: PAIN LEVEL 7 - 10 Last Admin: 02/03/19 21:14 Dose: 10 mg Polyethylene Glycol (Miralax (For Daily Use) -) 17 gm PO DAILY [facility] Last Admin: 02/04/19 09:32 Dose: 17 gm Polyethylene Glycol (Miralax (For Daily Use) -) 17 gm PO BID [facility] Last Admin: 02/04/19 09:41 Dose: 17 gm Promethazine HCl (Phenergan Injection -) 12.5 mg IVPB Q6H PRN PRN Reason: NAUSEA AND/OR VOMITING Rivaroxaban (Xarelto) 15 mg PO BID [facility] Last Admin: 02/04/19 09:29 Dose: 15 mg - Objective Vital Signs: Vital Signs Temperature 98.6 F 02/04/19 05:00 Pulse Rate 120 H 02/04/19 08:00 Respiratory Rate 18 02/04/19 08:00 Blood Pressure 124/72 02/04/19 08:00 O2 Sat by Pulse Oximetry (%) 98 02/04/19 09:00 Constitutional: Yes: No Distress, Calm Cardiovascular: Yes: S1, S2 Respiratory: Yes: Regular, CTA Bilaterally Gastrointestinal: Yes: Normal Bowel Sounds, Soft Musculoskeletal: Yes: WNL Extremities: Yes: Other (leg swollen,warm) Wound/Incision: Yes: Other Neurological: Yes: Alert, Oriented Psychiatric: Yes: Alert, Oriented Labs: CBC, BMP 02/03/19 05:20 02/03/19 05:20 INR, PTT INR 3.99 (0.83-1.09) H 02/03/19 05:20 Fibrinogen 297.0 mg/dL (238-498) 02/02/19 08:50 Assessment/Plan Problem List - Problems (1) Arterial occlusion Code(s): I70.90 - UNSPECIFIED ATHEROSCLEROSIS (2) CAD (coronary artery disease) Code(s): I25.10 - ATHSCL HEART DISEASE OF [place] CORONARY ARTERY W/O ANG PCTRS (3) H/O heart artery stent Code(s): Z95.5 - PRESENCE OF CORONARY ANGIOPLASTY IMPLANT AND GRAFT (4) HLD (hyperlipidemia) Code(s): E78.5 - HYPERLIPIDEMIA, UNSPECIFIED (5) Hematuria Code(s): R31.9 - HEMATURIA, UNSPECIFIED (6) Obesity Code(s): E66.9 - OBESITY, UNSPECIFIED (7) PAD (peripheral artery disease) Code(s): I73.9 - PERIPHERAL VASCULAR DISEASE, UNSPECIFIED (8) Right leg pain Code(s): M79.604 - PAIN IN RIGHT LEG (9) Smokes cigarettes Code(s): F17.210 - NICOTINE DEPENDENCE, CIGARETTES, UNCOMPLICATED (10) Diabetes type 2, uncontrolled Code(s): E11.65 - TYPE 2 DIABETES MELLITUS WITH HYPERGLYCEMIA (11) Hypertension Code(s): I10 - ESSENTIAL (PRIMARY) HYPERTENSION Assessment/Plan 49 y.o. male with PMH of DVT, RLE arterial occlusion s/p TPA (has not been taking Xarelto due to lack of insurance coverage), obesity, CAD s/p stent, CHF, HTN, HLD, DM presented with c/o severe RLE pain x 1 wk and foot feeling cold. Noted to have Rt popliteal and tibial arterial occlusion and initially underwent thrombolysis but then subsequently had SFA angioplasty with stent and tibial artery angioplasty on 01/25/19. Pt noted to have increasing wbc count since yesterday and mild temp elevation to 99.3F. +recent hematuria Leukocytosis RLE popliteal and tibial artery occlusion s/p angioplasty/stent Hematuria Hx of RLE arterial occlusion s/p TPA CAD s/p stent CHF DM HTN HLD Obesity plan continue current mgmt monitor the leg rest as per vascular and icu monitor fevers if fevers please cx the patient close watch cc 40 min cc 40 min
[2019-02-04 11:26] LABS: BASO % 0.7 % (0-2.0); EOS % 1.8 % (0-4.5); HEMATOCRIT 30.4 % (35.4-49); MCH 26.2 pg (25.7-33.7); MCHC 33.1 g/dl (32.0-35.9); MEAN CELL VOLUME 79.2 fl (80-96); MONO % 9.8 % (3.8-10.2); NEUT % 75.7 % (42.8-82.8); PLATELET COUNT 579 K/MM3 (134-434); RBC 3.84 M/mm3 (4.00-5.60); RDW 14.4 % (11.9-15.9); WHITE BLOOD COUNT 16.9 K/mm3 (4.0-10.0)
[2019-02-04 11:59] LABS: ALBUMIN 1.9 g/dl (3.4-5.0); BILIRUBIN,TOTAL 0.3 mg/dL (0.2-1); BLOOD UREA NITROGEN 10.5 mg/dL (7-18); CALCIUM 8.3 mg/dL (8.5-10.1); MAGNESIUM 2.2 mg/dL (1.8-2.4); TOT PROT 7.1 g/dl (6.4-8.2)
[2019-02-04] MEDS: oxyCODONE HCL 5 MG TABLET PO PRN ×2 (13:57→21:38)
--- NOTE | 2019-02-04 17:40 | PN ---
Progress Note, Physician Chief Complaint: right foot warm to touch, blister formation on anterior aspect of right foot. pt states he noted a small blister on his anterior right foot yesterday and noted now to be bigger. History of Present Illness: Patient is a 49 year old male with a significant past medical history of diabetes, CAD(s/p stents), HTN, presents to [facility] with c/o of a cold R foot. No change in sensations, no weakness of any part of the body, no facial drop, no prior episodes of similar pain in the past, no chest pain or SOB. He is post op right lower extremity angiogram, anterior tibial artery, peroneal artery, posterior tibial artery angioplasty with Dr. Chandler. - Current Medication List Current Medications: Active Medications Acetaminophen (Tylenol -) 650 mg PO Q4H PRN PRN Reason: FEVER Last Admin: 02/04/19 03:02 Dose: 650 mg Aspirin (Asa -) 81 mg PO DAILY [facility] Last Admin: 02/04/19 09:29 Dose: 81 mg Atorvastatin Calcium (Lipitor -) 40 mg PO [facility] Last Admin: 02/03/19 21:14 Dose: 40 mg Chlorhexidine Gluconate (Hibiclens For Decolonization -) 1 applic TP [facility] Last Admin: 02/03/19 21:16 Dose: 1 applic Dexamethasone Sodium Phosphate (Decadron Injection -) 4 mg IVPUSH ONCE PRN PRN Reason: NAUSEA AND/OR VOMITING Diphenhydramine HCl (Benadryl Injection -) 12.5 mg IVPUSH ONCE PRN PRN Reason: FOR ITCHING Docusate Sodium (Colace -) 100 mg PO TID [facility] Last Admin: 02/04/19 13:58 Dose: 100 mg Insulin Aspart (Novolog Vial Sliding Scale -) 1 vial SQ [facility]; Protocol Last Admin: 02/04/19 16:06 Dose: 10 units Insulin Detemir (Levemir Vial) 10 units SQ [facility] Last Admin: 02/03/19 21:18 Dose: 10 units Lisinopril (Prinivil) 2.5 mg PO DAILY [facility] Last Admin: 02/04/19 09:29 Dose: 2.5 mg Metoprolol Tartrate (Lopressor -) 25 mg PO BID [facility] Last Admin: 02/04/19 09:29 Dose: 25 mg Metoprolol Tartrate (Lopressor Injection -) 5 mg IVPUSH Q4H PRN PRN Reason: HYPERTENSION Last Admin: 02/03/19 10:19 Dose: 5 mg Mupirocin (Bactroban Ointment (For Decolonization) -) 1 applic NS BID [facility] Stop: 02/07/19 21:59 Last Admin: 02/04/19 09:40 Dose: 1 applic Ondansetron HCl (Zofran Injection) 4 mg IVPUSH Q4H PRN PRN Reason: NAUSEA AND/OR VOMITING Oxycodone HCl (Roxicodone -) 5 mg PO Q6H PRN PRN Reason: PAIN LEVEL 4 - 6 Last Admin: 02/04/19 13:57 Dose: 5 mg Oxycodone HCl (Roxicodone -) 10 mg PO Q6H PRN PRN Reason: PAIN LEVEL 7 - 10 Last Admin: 02/03/19 21:14 Dose: 10 mg Polyethylene Glycol (Miralax (For Daily Use) -) 17 gm PO DAILY [facility] Last Admin: 02/04/19 09:32 Dose: 17 gm Polyethylene Glycol (Miralax (For Daily Use) -) 17 gm PO BID [facility] Last Admin: 02/04/19 09:41 Dose: 17 gm Promethazine HCl (Phenergan Injection -) 12.5 mg IVPB Q6H PRN PRN Reason: NAUSEA AND/OR VOMITING Rivaroxaban (Xarelto) 15 mg PO BID [facility] Last Admin: 02/04/19 09:29 Dose: 15 mg - Objective Vital Signs: Vital Signs Temperature 98.6 F 02/04/19 05:00 Pulse Rate 118 H 02/04/19 16:00 Respiratory Rate 27 H 02/04/19 16:00 Blood Pressure 126/77 02/04/19 16:00 O2 Sat by Pulse Oximetry (%) 98 02/04/19 09:00 Constitutional: Yes: Well Nourished, No Distress, Calm HENT: Yes: Atraumatic Neck: Yes: Supple Cardiovascular: Yes: Tachycardia Respiratory: Yes: Regular Gastrointestinal: Yes: Normal Bowel Sounds ...Rectal Exam: Yes: WNL Genitourinary: Yes: WNL Extremities: Yes: Other (right foot anterior, large blister formed) Edema: Yes Edema: RLE: 1+ Wound/Incision: Yes: Clean/Dry, Open to air Neurological: Yes: Oriented Labs: CBC, BMP 02/04/19 10:56 02/04/19 10:56 INR, PTT INR 3.99 (0.83-1.09) H 02/03/19 05:20 Fibrinogen 297.0 mg/dL (238-498) 02/02/19 08:50 Problem List - Problems (1) Arterial occlusion Assessment/Plan: Duplex ultrasound revealed right popliteal, and posterior tibial artery occlusion. CTA with runoff reveals occlusive thrombus in the right popliteal artery, with nonocclusive thrombus in distal portion of right superficial femoral artery. He is post op right lower extremity angiogram, anterior tibial artery, peroneal artery, posterior tibial artery angioplasty pain management with oxycodone prn. on xarelto Code(s): I70.90 - UNSPECIFIED ATHEROSCLEROSIS (2) CAD (coronary artery disease) Assessment/Plan: Cont asa Code(s): I25.10 - ATHSCL HEART DISEASE OF [place] CORONARY ARTERY W/O ANG PCTRS (3) Diabetes type 2, uncontrolled Assessment/Plan: Cont sliding scale w/ coverage tightened sliding scale and increased levemir Code(s): E11.65 - TYPE 2 DIABETES MELLITUS WITH HYPERGLYCEMIA (4) Hypertension Assessment/Plan: BP stable Cont metoprolol Code(s): I10 - ESSENTIAL (PRIMARY) HYPERTENSION (5) HLD (hyperlipidemia) Assessment/Plan: Cont lipitor Code(s): E78.5 - HYPERLIPIDEMIA, UNSPECIFIED (6) Prophylactic measure Assessment/Plan: diabetic diet full code Code(s): Z29.9 - ENCOUNTER FOR PROPHYLACTIC MEASURES, UNSPECIFIED Visit type - Emergency Visit Emergency Visit: Yes ED Registration Date: 01/24/19 Care time: The patient presented to the Emergency Department on the above date and was hospitalized for further evaluation of their emergent condition. - New Patient This patient is new to me today: No - Critical Care Critical Care patient: No - Discharge Referral Referred to [facility] Med P.C[facility] No
[2019-02-04] MEDS ORDERED: PIPERACILLIN/TAZOBACTAM 3.375 GM VIAL IVPB ONE (19:44)
[2019-02-04] MEDS ORDERED: DEXTROSE 5%-WATER - 50 ML IVPB ONE (19:44)
[2019-02-04] MEDS: PIPERACILLIN/TAZOB 3.375 GM 3.375 GM in DEXTROSE 5%-WATER - 50 ML IVPB SCH (19:53)
[2019-02-04] MEDS: ATORVASTATIN CA 40 MG TABLET (FP) PO SCH (21:38)
[2019-02-04] MEDS: INSULIN (LEVEMIR) 100 UNITS/ML UNITS SQ SCH (21:39)
[2019-02-04] MEDS: CHLORHEXIDINE GLUCONATE 4% CLEANSER FOR DECOLONIZATION TP SCH (21:40)
[2019-02-05] MEDS ORDERED: DEXTROSE 5%-WATER - 50 ML IVPB ONE ×4 (03:07→16:56)
[2019-02-05] MEDS ORDERED: PIPERACILLIN/TAZOBACTAM 3.375 GM VIAL IVPB ONE ×4 (03:07→16:56)
[2019-02-05] MEDS: PIPERACILLIN/TAZOB 3.375 GM 3.375 GM in DEXTROSE 5%-WATER - 50 ML IVPB SCH ×3 (03:25→17:00)
[2019-02-05] MEDS: ACETAMINOPHEN 325 MG TABLET (FP) PO PRN ×3 (03:30→20:39)
[2019-02-05] MEDS: oxyCODONE HCL 5 MG TABLET PO PRN ×3 (03:30→20:40)
[2019-02-05] MEDS: DOCUSATE SODIUM 100 MG CAPSULE (FP) PO SCH ×3 (05:48→21:10)
[2019-02-05] MEDS ORDERED: RAPID SEQUENCE INTUBATION KIT NR ONE (07:41)
[2019-02-05] MEDS ORDERED: PROPOFOL 1,000,000 MCG/100 ML VIAL ONE (07:41)
[2019-02-05] MEDS ORDERED: ESMOLOL HCL 100,000 MCG/10 ML VIAL ONE (07:54)
[2019-02-05] MEDS ORDERED: PT OWN MED DRAWER 7, Y5N ONE (09:21)
[2019-02-05] MEDS: RIVAROXABAN 15 MG TABLET PO SCH ×2 (09:27→23:28)
[2019-02-05] MEDS: LISINOPRIL 5 MG TABLET (FP) PO SCH (09:27)
[2019-02-05] MEDS: ASPIRIN 81 MG CHEWABLE TABLETS PO SCH (09:27)
[2019-02-05] MEDS: METOPROLOL TARTRATE 25 MG TABLET (FP) PO SCH ×2 (09:28→21:11)
[2019-02-05] MEDS: MUPIROCIN 2% TOPICAL OINTMENT FOR DECOLONIZATION NS SCH ×2 (09:29→21:10)
[2019-02-05] MEDS: POLYETHYLENE GLYCOL 3350 119 GM BTL PO SCH ×2 (10:25→21:11)
[2019-02-05 10:28] LABS: BASO % 0.8 % (0-2.0); EOS % 2.4 % (0-4.5); HEMATOCRIT 28.3 % (35.4-49); HEMOGLOBIN 9.3 GM/dL (11.7-16.9); LYMPH % 14.2 % (8-40); MCH 25.9 pg (25.7-33.7); MEAN CELL VOLUME 78.5 fl (80-96); MEAN PLT VOLUME 7.1 fl (7.5-11.1); MONO % 8.8 % (3.8-10.2); NEUT % 73.8 % (42.8-82.8); PLATELET COUNT 609 K/MM3 (134-434); RBC 3.61 M/mm3 (4.00-5.60); RDW 14.3 % (11.9-15.9); WHITE BLOOD COUNT 14.9 K/mm3 (4.0-10.0)
--- NOTE | 2019-02-05 10:41 | OP ---
DATE OF OPERATION: 02/01/2019 PREOPERATIVE DIAGNOSIS: Right lower extremity ischemia. POSTOPERATIVE DIAGNOSIS: Right lower extremity ischemia. PROCEDURE: Aortogram, right lower extremity angiogram, infusion of thrombolysis. SURGEON: Morgan Barragan DO ANESTHESIA: Fractional. BLOOD LOSS: 50 mL. INDICATIONS: Patient is a 49-year-old male that recently had thrombolysis performed about 7-8 days ago. Did well and had been placed on Lovenox and then onto warfarin; however, the patient has a warfarin intolerance, and the patient was not being anticoagulated to his full capacity and was not therapeutic and developed re-thrombosis of his right lower extremity. It was decided that he would need repeat angiogram. Patient was consented for the procedure understanding all risks, benefits, alternatives. Was then taken to the operating room. DESCRIPTION OF PROCEDURE: Once in the operating room, was laid on the operating table in supine manner, and the area of the right and left groin was prepped and draped in sterile surgical manner. We then went ahead and injected 10 mL of lidocaine 1% over the left common femoral artery. We then used our micropuncture needle to puncture the left common femoral artery. Micropuncture wire was inserted. Micropuncture sheath was inserted, and a traditional 5-Italian sheath was inserted, 0.035 floppy guidewire was inserted into the aorta followed by Omni Flush catheter. We then shot an aortogram via hand injection showing that the aorta and the iliac arteries were without any disease. We then placed a 0.035 floppy guidewire down to the right common femoral artery, and Omni Flush catheter followed. We then shot an angiogram of the right lower extremity showing that the common femoral artery and the profunda were patent. The SFA was patent up until its mid segment and then from the prior stent down in the distal SFA, popliteal artery and the TP trunk were occluded. Patient had 2- vessel runoff peroneal and posterior tibial, but the posterior tibial is what went into the foot. At this point, we decided that this was all clot, and we went ahead and placed a 0.035 stiff guidewire down into the TP trunk, and we placed an EKOS catheter into the TP trunk. We then went ahead and started infusing 1 mg/hr of tPA by using the EKOS catheter. Patient was getting 500 units of heparin peripherally. A 6 x 45 crossover sheath had been placed, and that is going to stay in the patient along with the EKOS catheter overnight now for infusion. Patient received 5000 units of IV heparin once the sheath went in. Once the EKOS catheter was in the right position in the TP trunk, we kept the left groin sterile by placing 2 sterile Tegaderms, and the patient was transferred to the ICU directly. Patient will now be monitored there in the ICU and be brought back for a thrombolysis check tomorrow. Total blood loss 50 mL. MORGAN BARRAGAN DO [id number]
--- NOTE | 2019-02-05 10:42 | PN ---
Progress Note, Physician History of Present Illness: events noted patient started spiking fever high grade leg still warm pulses still present blister on the leg - Current Medication List Current Medications: Active Medications Acetaminophen (Tylenol -) 650 mg PO Q4H PRN PRN Reason: FEVER Last Admin: 02/05/19 03:30 Dose: 650 mg Aspirin (Asa -) 81 mg PO DAILY [facility] Last Admin: 02/05/19 09:27 Dose: 81 mg Atorvastatin Calcium (Lipitor -) 40 mg PO [facility] Last Admin: 02/04/19 21:38 Dose: 40 mg Chlorhexidine Gluconate (Hibiclens For Decolonization -) 1 applic TP HS [facility] Last Admin: 02/04/19 21:40 Dose: 1 applic Dexamethasone Sodium Phosphate (Decadron Injection -) 4 mg IVPUSH ONCE PRN PRN Reason: NAUSEA AND/OR VOMITING Diphenhydramine HCl (Benadryl Injection -) 12.5 mg IVPUSH ONCE PRN PRN Reason: FOR ITCHING Docusate Sodium (Colace -) 100 mg PO TID [facility] Last Admin: 02/05/19 05:48 Dose: 100 mg Piperacillin Sod/Tazobactam (Sod 3.375 gm/ Dextrose) 50 mls @ 100 mls/hr IVPB Q8H-IV [facility] Last Admin: 02/05/19 09:26 Dose: 100 mls/hr Insulin Aspart (Novolog Vial Sliding Scale -) 1 vial SQ [facility]; Protocol Last Admin: 02/04/19 21:40 Dose: 10 units Insulin Detemir (Levemir Vial) 15 units SQ [facility] Last Admin: 02/04/19 21:39 Dose: 15 units Lisinopril (Prinivil) 2.5 mg PO DAILY [facility] Last Admin: 02/05/19 09:27 Dose: 2.5 mg Metoprolol Tartrate (Lopressor -) 25 mg PO BID [facility] Last Admin: 02/05/19 09:28 Dose: 25 mg Metoprolol Tartrate (Lopressor Injection -) 5 mg IVPUSH Q4H PRN PRN Reason: HYPERTENSION Last Admin: 02/03/19 10:19 Dose: 5 mg Mupirocin (Bactroban Ointment (For Decolonization) -) 1 applic NS BID [facility] Stop: 02/07/19 21:59 Last Admin: 02/05/19 09:29 Dose: 1 applic Ondansetron HCl (Zofran Injection) 4 mg IVPUSH Q4H PRN PRN Reason: NAUSEA AND/OR VOMITING Oxycodone HCl (Roxicodone -) 5 mg PO Q6H PRN PRN Reason: PAIN LEVEL 4 - 6 Last Admin: 02/04/19 13:57 Dose: 5 mg Oxycodone HCl (Roxicodone -) 10 mg PO Q6H PRN PRN Reason: PAIN LEVEL 7 - 10 Last Admin: 02/05/19 03:30 Dose: 10 mg Polyethylene Glycol (Miralax (For Daily Use) -) 17 gm PO BID [facility] Last Admin: 02/05/19 10:25 Dose: Not Given Promethazine HCl (Phenergan Injection -) 12.5 mg IVPB Q6H PRN PRN Reason: NAUSEA AND/OR VOMITING Rivaroxaban (Xarelto) 15 mg PO BID [facility] Last Admin: 02/05/19 09:27 Dose: 15 mg - Objective Vital Signs: Vital Signs Temperature 97.6 F 02/05/19 06:00 Pulse Rate 105 H 02/05/19 08:00 Respiratory Rate 18 02/05/19 08:00 Blood Pressure 117/78 02/05/19 08:00 O2 Sat by Pulse Oximetry (%) 98 02/04/19 22:45 Constitutional: Yes: No Distress, Calm Cardiovascular: Yes: S1, S2 Respiratory: Yes: Regular, CTA Bilaterally Gastrointestinal: Yes: Normal Bowel Sounds, Soft Musculoskeletal: Yes: WNL Extremities: Yes: Other (warm) Neurological: Yes: Alert, Oriented Psychiatric: Yes: Alert, Oriented Labs: CBC, BMP 02/05/19 09:40 INR, PTT INR 3.99 (0.83-1.09) H 02/03/19 05:20 Fibrinogen 297.0 mg/dL (238-498) 02/02/19 08:50 Assessment/Plan Problem List - Problems (1) Arterial occlusion Code(s): I70.90 - UNSPECIFIED ATHEROSCLEROSIS (2) CAD (coronary artery disease) Code(s): I25.10 - ATHSCL HEART DISEASE OF [place] CORONARY ARTERY W/O ANG PCTRS (3) H/O heart artery stent Code(s): Z95.5 - PRESENCE OF CORONARY ANGIOPLASTY IMPLANT AND GRAFT (4) HLD (hyperlipidemia) Code(s): E78.5 - HYPERLIPIDEMIA, UNSPECIFIED (5) Hematuria Code(s): R31.9 - HEMATURIA, UNSPECIFIED (6) Obesity Code(s): E66.9 - OBESITY, UNSPECIFIED (7) PAD (peripheral artery disease) Code(s): I73.9 - PERIPHERAL VASCULAR DISEASE, UNSPECIFIED (8) Right leg pain Code(s): M79.604 - PAIN IN RIGHT LEG (9) Smokes cigarettes Code(s): F17.210 - NICOTINE DEPENDENCE, CIGARETTES, UNCOMPLICATED (10) Diabetes type 2, uncontrolled Code(s): E11.65 - TYPE 2 DIABETES MELLITUS WITH HYPERGLYCEMIA (11) Hypertension Code(s): I10 - ESSENTIAL (PRIMARY) HYPERTENSION Assessment/Plan 49 y.o. male with PMH of DVT, RLE arterial occlusion s/p TPA (has not been taking Xarelto due to lack of insurance coverage), obesity, CAD s/p stent, CHF, HTN, HLD, DM presented with c/o severe RLE pain x 1 wk and foot feeling cold. Noted to have Rt popliteal and tibial arterial occlusion and initially underwent thrombolysis but then subsequently had SFA angioplasty with stent and tibial artery angioplasty on 01/25/19. Pt noted to have increasing wbc count since yesterday and mild temp elevation to 99.3F. +recent hematuria Leukocytosis RLE popliteal and tibial artery occlusion s/p angioplasty/stent Hematuria Hx of RLE arterial occlusion s/p TPA CAD s/p stent CHF DM HTN HLD Obesity plan continue current mgmt monitor the leg rest as per vascular started on zosyn as patient was spiking fever empirically close watch if spikes fever please cx cc 38 min
[2019-02-05 10:52] LABS: ALBUMIN 1.9 g/dl (3.4-5.0); BILIRUBIN,TOTAL 0.3 mg/dL (0.2-1); BLOOD UREA NITROGEN 13.1 mg/dL (7-18); CALCIUM 8.3 mg/dL (8.5-10.1); CREATININE 1.1 mg/dL (0.55-1.3); MAGNESIUM 2.3 mg/dL (1.8-2.4); POTASSIUM 3.9 mmol/L (3.5-5.1); TOT PROT 7.2 g/dl (6.4-8.2)
[2019-02-05] MEDS: INSULIN SLIDING SCALE (NOVOLOG) 1 VIAL SQ SCH ×5 (11:32→21:13)
--- NOTE | 2019-02-05 11:56 | PN ---
Teaching Attending Note Name of Resident: Zachary Roy ATTENDING PHYSICIAN STATEMENT I saw and evaluated the patient. I reviewed the resident's note and discussed the case with the resident. I agree with the resident's findings and plan as documented. SUBJECTIVE: Pt seen and examined in the ICU. Still some right foot pain but better. Foot warm, +ischemic toes. OBJECTIVE: Vital Signs Period Temp Pulse Resp BP Sys/Miller Pulse Ox Last 24 Hr 97.6 F-101.0 F 95-124 11-27 116-163/69-105 98-100 Intake & Output 02/02/19 02/03/19 02/04/19 02/05/19 23:59 23:59 23:59 23:59 Intake Total 2760 2300 875 Output Total 2750 2850 2050 Balance 10 -645 -2934 Weight 123.377 kg 122.8 kg 123.2 kg Gen: NAD at rest Heart: RRR Lung: decreased breath sounds at the bases Abd: soft, nontender Ext: R foot edema, ischemic toes CBC, BMP 02/05/19 09:40 02/05/19 09:40 Active Medications Acetaminophen (Tylenol -) 650 mg PO Q4H PRN PRN Reason: FEVER Last Admin: 02/05/19 11:46 Dose: 650 mg Aspirin (Asa -) 81 mg PO DAILY [facility] Last Admin: 02/05/19 09:27 Dose: 81 mg Atorvastatin Calcium (Lipitor -) 40 mg PO HS [facility] Last Admin: 02/04/19 21:38 Dose: 40 mg Chlorhexidine Gluconate (Hibiclens For Decolonization -) 1 applic TP HS [facility] Last Admin: 02/04/19 21:40 Dose: 1 applic Dexamethasone Sodium Phosphate (Decadron Injection -) 4 mg IVPUSH ONCE PRN PRN Reason: NAUSEA AND/OR VOMITING Diphenhydramine HCl (Benadryl Injection -) 12.5 mg IVPUSH ONCE PRN PRN Reason: FOR ITCHING Docusate Sodium (Colace -) 100 mg PO TID [facility] Last Admin: 02/05/19 05:48 Dose: 100 mg Piperacillin Sod/Tazobactam (Sod 3.375 gm/ Dextrose) 50 mls @ 100 mls/hr IVPB Q8H-IV [facility] Last Admin: 02/05/19 09:26 Dose: 100 mls/hr Insulin Aspart (Novolog Vial Sliding Scale -) 1 vial SQ [facility]; Protocol Last Admin: 02/05/19 11:34 Dose: 10 units Insulin Detemir (Levemir Vial) 15 units SQ [facility] Last Admin: 02/04/19 21:39 Dose: 15 units Lisinopril (Prinivil) 2.5 mg PO DAILY [facility] Last Admin: 02/05/19 09:27 Dose: 2.5 mg Metoprolol Tartrate (Lopressor -) 25 mg PO BID [facility] Last Admin: 02/05/19 09:28 Dose: 25 mg Metoprolol Tartrate (Lopressor Injection -) 5 mg IVPUSH Q4H PRN PRN Reason: HYPERTENSION Last Admin: 02/03/19 10:19 Dose: 5 mg Mupirocin (Bactroban Ointment (For Decolonization) -) 1 applic NS BID [facility] Stop: 02/07/19 21:59 Last Admin: 02/05/19 09:29 Dose: 1 applic Ondansetron HCl (Zofran Injection) 4 mg IVPUSH Q4H PRN PRN Reason: NAUSEA AND/OR VOMITING Oxycodone HCl (Roxicodone -) 5 mg PO Q6H PRN PRN Reason: PAIN LEVEL 4 - 6 Last Admin: 02/04/19 13:57 Dose: 5 mg Oxycodone HCl (Roxicodone -) 10 mg PO Q6H PRN PRN Reason: PAIN LEVEL 7 - 10 Last Admin: 02/05/19 11:46 Dose: 10 mg Polyethylene Glycol (Miralax (For Daily Use) -) 17 gm PO BID [facility] Last Admin: 02/05/19 10:25 Dose: Not Given Promethazine HCl (Phenergan Injection -) 12.5 mg IVPB Q6H PRN PRN Reason: NAUSEA AND/OR VOMITING Rivaroxaban (Xarelto) 15 mg PO BID [facility] Last Admin: 02/05/19 09:27 Dose: 15 mg ASSESSMENT AND PLAN: Right Popliteal Artery/Posterior Tibial Artery Thrombus s/p RLE Anigiogram/SFA Angioplasty/Stent/Tibial Artery Angioplasty 01/25 RLE Ischemia s/p RLE Angiogram/tPA infusion 02/01 s/p RLE Angiogram/Anterior Tibial/Peroneal/Posterior Tibial Artery Angioplasty CAD s/p PCI stenting HTN DM - pulse checks - continue anticoagulation - pain control - antibiotics per ID - O2 to keep SpO2 >90% - can monitor on floor
--- NOTE | 2019-02-05 14:34 | PN ---
Progress Note (short form) - Note Progress Note: Pt states that he has some numbness to this right foot. Vital Signs Period Temp Pulse Resp BP Sys/Miller Pulse Ox Last 24 Hr 97.6 F-101.0 F 93-124 11- 116-163/69-105 98-100 GEN: A&0x3, NAD Right foot: dry gangrene with foul odor to mid foot/toes. Blister to the top of his foot. PT/DP pulse with doppler. Decreased sensation to the forefoot. 4/5 RLE plantar flexion. 3/5 dorsi felxion. CBC, BMP 02/05/19 09:40 02/05/19 09:40 A/p: 49 yo male s/p Angiogram/TPA infusion and repeat angiogram 02/02 with patent trifurcation. Now with PT/DP signal. D/w Dr. Chandler Will continue Xeralto/aspirin therapy OOB to chair/PT IV abx
--- NOTE | 2019-02-05 15:36 | PN ---
Physical Exam: SUBJECTIVE: Patient seen and examined at the bedside this AM. No acute events overnight. Pt not in any pain, denies cp, sob. OBJECTIVE: Vital Signs Period Temp Pulse Resp BP Sys/Miller Pulse Ox Last 24 Hr 97.6 F-101.0 F 93-124 11-27 116-163/69-105 98-100 GENERAL: The patient is awake, alert, and fully oriented, in no acute distress. HEAD: Normal with no signs of trauma. EYES: sclera anicteric, conjunctiva clear. No ptosis. ENT: Ears normal, nares patent, oropharynx clear without exudates, moist mucous membranes. NECK: supple. LUNGS: Breath sounds equal, clear to auscultation bilaterally, no wheezes, no crackles, no accessory muscle use. HEART: Regular rate and rhythm, S1, S2 without murmur, rub or gallop. ABDOMEN: Soft, nontender, nondistended, normoactive bowel sounds, no guarding, no rebound. EXTREMITIES: 2+ pulses, warm, well-perfused, 1+ pitting edema on unilateral extremity. RLE bullous lesion on midfoot, warm, able to move toes, sensation intact NEUROLOGICAL: Cranial nerves II through XII grossly intact. Normal speech, gait not observed. PSYCH: Normal mood, normal affect. SKIN: Warm, dry, bullous lesion on foot noted Laboratory Results - last 24 hr 02/04/19 02/04/19 02/05/19 15:52 21:33 05:42 WBC RBC Hgb Hct MCV MCH MCHC RDW Plt Count MPV Absolute Neuts (auto) Neutrophils % Lymphocytes % Monocytes % Eosinophils % Basophils % Nucleated RBC % Sodium Potassium Chloride Carbon Dioxide Anion Gap BUN Creatinine Est GFR (CKD-EPI)AfAm Est GFR (CKD-EPI)NonAf POC Glucometer 327 281 250 Random Glucose Calcium Magnesium Total Bilirubin AST ALT Alkaline Phosphatase Total Protein Albumin 02/05/19 02/05/19 02/05/19 09:40 09:40 11:14 WBC 14.9 H RBC 3.61 L Hgb 9.3 L Hct 28.3 L MCV 78.5 L MCH 25.9 MCHC 33.0 RDW 14.3 Plt Count 609 H MPV 7.1 L Absolute Neuts (auto) 11.0 H Neutrophils % 73.8 Lymphocytes % 14.2 Monocytes % 8.8 Eosinophils % 2.4 Basophils % 0.8 Nucleated RBC % 0 Sodium 134 L Potassium 3.9 Chloride 95 L Carbon Dioxide 32 Anion Gap 7 L BUN 13.1 Creatinine 1.1 Est GFR (CKD-EPI)AfAm 91.52 Est GFR (CKD-EPI)NonAf 78.96 POC Glucometer 275 Random Glucose 230 H Calcium 8.3 L Magnesium 2.3 Total Bilirubin 0.3 AST 122 H ALT 44 Alkaline Phosphatase 98 Total Protein 7.2 Albumin 1.9 L Active Medications Generic Name Dose Route Start Last Admin Trade Name Freq PRN Reason Stop Dose Admin Acetaminophen 650 mg 02/03/19 19:07 02/05/19 11:46 Tylenol - PO 650 mg Q4H PRN Administration FEVER Aspirin 81 mg 02/03/19 10:00 02/05/19 09:27 Asa - PO 81 mg DAILY [facility] Administration Atorvastatin Calcium 40 mg 02/02/19 22:00 02/04/19 21:38 Lipitor - PO 40 mg HS [facility] Administration Chlorhexidine Gluconate 1 applic 02/02/19 22:00 02/04/19 21:40 Hibiclens For Decolonization - TP 1 applic HS [facility] Administration Dexamethasone Sodium Phosphate 4 mg 02/02/19 16:52 Decadron Injection - IVPUSH ONCE PRN NAUSEA AND/OR VOMITING Diphenhydramine HCl 12.5 mg 02/02/19 16:52 Benadryl Injection - IVPUSH ONCE PRN FOR ITCHING Docusate Sodium 100 mg 02/02/19 22:00 02/05/19 13:29 Colace - PO 100 mg TID [facility] Administration Piperacillin Sod/Tazobactam 50 mls @ 100 mls/hr 02/04/19 19:45 02/05/19 09:26 Sod 3.375 gm/ Dextrose IVPB 100 mls/hr Q8H-IV [facility] Administration Insulin Aspart 1 vial 02/04/19 18:43 02/05/19 11:34 Novolog Vial Sliding Scale - SQ 10 units ACHS MARYJO Administration Protocol Insulin Detemir 15 units 02/04/19 22:00 02/04/19 21:39 Levemir Vial SQ 15 units HS [facility] Administration Lisinopril 2.5 mg 02/03/19 10:00 02/05/19 09:27 Prinivil PO 2.5 mg DAILY [facility] Administration Metoprolol Tartrate 25 mg 02/02/19 22:00 02/05/19 09:28 Lopressor - PO 25 mg BID [facility] Administration Metoprolol Tartrate 5 mg 02/02/19 16:52 02/03/19 10:19 Lopressor Injection - IVPUSH 5 mg Q4H PRN Administration HYPERTENSION Mupirocin 1 applic 02/02/19 22:00 02/05/19 09:29 Bactroban Ointment (For Decolonization) - NS 02/07/19 21:59 1 applic BID [facility] Administration Ondansetron HCl 4 mg 02/02/19 16:52 Zofran Injection IVPUSH Q4H PRN NAUSEA AND/OR VOMITING Oxycodone HCl 5 mg 02/02/19 16:52 02/04/19 13:57 Roxicodone - PO 5 mg Q6H PRN Administration PAIN LEVEL 4 - 6 Oxycodone HCl 10 mg 02/02/19 16:52 02/05/19 11:46 Roxicodone - PO 10 mg Q6H PRN Administration PAIN LEVEL 7 - 10 Polyethylene Glycol 17 gm 02/03/19 22:00 02/05/19 10:25 Miralax (For Daily Use) - PO Not Given BID [facility] Promethazine HCl 12.5 mg 02/02/19 16:52 Phenergan Injection - IVPB Q6H PRN NAUSEA AND/OR VOMITING Rivaroxaban 15 mg 02/02/19 16:45 02/05/19 09:27 Xarelto PO 15 mg BID [facility] Administration ASSESSMENT/PLAN: This is a 49 y/o M with a pmh of RLE (popliteal artery, posterior tibial artery ) occlusion due to poor compliance to his anticoagulation regimen, whom presented with RLE pain, s/p angiogram/angioplasty with stent placement. Neurology pt is AAOX3, neurologically intact Cardiovascular-> CAD hx, - continuing home meds- ASA 81 DAILY for CAD/stenting hx - on xarelto - continuing Lipitor 40mg HS PO - continuing Lopressor 25mg BID PO - Lisinopril 2.5mg Pulmonary - monitor SaO2 maintaining >90% - on RA. Gastroenterology - miralax 17g BID - 12.5 promethazine q6h pRN for nausea and vomiting - zofran 4mg Q4Hprn Vascular-> s/p thrombosis retrieval and stent placement - s/p anterior tibial artery, peroneal artery, posterior tibial artery angioplasty stent - pain management w oxycodone 10mg po - Dr. Chandler consulted - Dr. Menon consulted will continue zosyn and monitor for fever and will obtain cx from foot if becomes febrile Endocrine-> DM - BGM ACHS and ISS for glycemic control FEN: off fluids Monitor electrolytes and replete as necessary Nutrition: low Na, diabetic diet PPX DVT - xarelto, ASA GI - Not indicated currently Dispo: We will continue to follow the patient. Thank you for this consultative opportunity. Visit type - Emergency Visit Emergency Visit: Yes ED Registration Date: 01/24/19 Care time: The patient presented to the Emergency Department on the above date and was hospitalized for further evaluation of their emergent condition. - New Patient This patient is new to me today: Yes Date on this admission: 02/05/19 - Critical Care Critical Care patient: Yes Total Critical Care Time (in minutes): 35 Critical Care Statement: The care of this patient involved high complexity decision making to prevent further life threatening deterioration of the patient 's condition and/or to evaluate & treat vital organ system(s) failure or risk of failure. - Discharge Referral Referred to [facility] Med P.C.: No ATTENDING PHYSICIAN STATEMENT I saw and evaluated the patient. I reviewed the resident's note and discussed the case with the resident. I agree with the resident's findings and plan as documented. SUBJECTIVE: OBJECTIVE: ASSESSMENT AND PLAN:
[2019-02-05] MEDS: CHLORHEXIDINE GLUCONATE 4% CLEANSER FOR DECOLONIZATION TP SCH (21:10)
[2019-02-05] MEDS: ATORVASTATIN CA 40 MG TABLET (FP) PO SCH (21:11)
[2019-02-05] MEDS: INSULIN (LEVEMIR) 100 UNITS/ML UNITS SQ SCH (21:12)
--- NOTE | 2019-02-05 22:14 | PN ---
Progress Note, Physician Chief Complaint: right foot warm to touch, blister formation on anterior aspect of right foot. History of Present Illness: Patient is a 49 year old male with a significant past medical history of diabetes, CAD(s/p stents), HTN, presents to [facility] with c/o of a cold R foot. No change in sensations, no weakness of any part of the body, no facial drop, no prior episodes of similar pain in the past, no chest pain or SOB. He is post op right lower extremity angiogram, anterior tibial artery, peroneal artery, posterior tibial artery angioplasty with Dr. Chandler. - Current Medication List Current Medications: Active Medications Acetaminophen (Tylenol -) 650 mg PO Q4H PRN PRN Reason: FEVER Last Admin: 02/05/19 20:39 Dose: 650 mg Aspirin (Asa -) 81 mg PO DAILY [facility] Last Admin: 02/05/19 09:27 Dose: 81 mg Atorvastatin Calcium (Lipitor -) 40 mg PO HS [facility] Last Admin: 02/05/19 21:11 Dose: 40 mg Chlorhexidine Gluconate (Hibiclens For Decolonization -) 1 applic TP HS [facility] Last Admin: 02/05/19 21:10 Dose: 1 applic Dexamethasone Sodium Phosphate (Decadron Injection -) 4 mg IVPUSH ONCE PRN PRN Reason: NAUSEA AND/OR VOMITING Diphenhydramine HCl (Benadryl Injection -) 12.5 mg IVPUSH ONCE PRN PRN Reason: FOR ITCHING Docusate Sodium (Colace -) 100 mg PO TID [facility] Last Admin: 02/05/19 21:10 Dose: 100 mg Piperacillin Sod/Tazobactam (Sod 3.375 gm/ Dextrose) 50 mls @ 100 mls/hr IVPB Q8H-IV [facility] Last Admin: 02/05/19 17:00 Dose: 100 mls/hr Insulin Aspart (Novolog Vial Sliding Scale -) 1 vial SQ ACHS [facility]; Protocol Last Admin: 02/05/19 21:13 Dose: 14 units Insulin Detemir (Levemir Vial) 15 units SQ BID [facility] Lisinopril (Prinivil) 2.5 mg PO DAILY [facility] Last Admin: 02/05/19 09:27 Dose: 2.5 mg Metoprolol Tartrate (Lopressor -) 25 mg PO BID [facility] Last Admin: 02/05/19 21:11 Dose: 25 mg Metoprolol Tartrate (Lopressor Injection -) 5 mg IVPUSH Q4H PRN PRN Reason: HYPERTENSION Last Admin: 02/03/19 10:19 Dose: 5 mg Mupirocin (Bactroban Ointment (For Decolonization) -) 1 applic NS BID [facility] Stop: 02/07/19 21:59 Last Admin: 02/05/19 21:10 Dose: 1 applic Ondansetron HCl (Zofran Injection) 4 mg IVPUSH Q4H PRN PRN Reason: NAUSEA AND/OR VOMITING Oxycodone HCl (Roxicodone -) 5 mg PO Q4H PRN PRN Reason: PAIN LEVEL 6-10 Last Admin: 02/05/19 20:40 Dose: 5 mg Polyethylene Glycol (Miralax (For Daily Use) -) 17 gm PO BID [facility] Last Admin: 02/05/19 21:11 Dose: Not Given Promethazine HCl (Phenergan Injection -) 12.5 mg IVPB Q6H PRN PRN Reason: NAUSEA AND/OR VOMITING Rivaroxaban (Xarelto) 15 mg PO BID [facility] Last Admin: 02/05/19 09:27 Dose: 15 mg - Objective Vital Signs: Vital Signs Temperature 98.2 F 02/05/19 18:00 Pulse Rate 114 H 02/05/19 19:41 Respiratory Rate 20 02/05/19 19:41 Blood Pressure 120/98 02/05/19 19:41 O2 Sat by Pulse Oximetry (%) 100 02/05/19 19:38 Constitutional: Yes: Well Nourished, No Distress, Calm Eyes: Yes: WNL HENT: Yes: Atraumatic Neck: Yes: Supple Cardiovascular: Yes: Regular Rate and Rhythm, Tachycardia Respiratory: Yes: Regular Gastrointestinal: Yes: Normal Bowel Sounds ...Rectal Exam: Yes: Deferred Genitourinary: Yes: WNL Musculoskeletal: Yes: Muscle Weakness Extremities: Yes: Erythema Edema: RLE: 2+ Labs: CBC, BMP 02/05/19 09:40 02/05/19 09:40 INR, PTT INR 3.99 (0.83-1.09) H 02/03/19 05:20 Fibrinogen 297.0 mg/dL (238-498) 02/02/19 08:50 Problem List - Problems (1) Arterial occlusion Assessment/Plan: Duplex ultrasound revealed right popliteal, and posterior tibial artery occlusion. CTA with runoff reveals occlusive thrombus in the right popliteal artery, with nonocclusive thrombus in distal portion of right superficial femoral artery. He is post op right lower extremity angiogram, anterior tibial artery, peroneal artery, posterior tibial artery angioplasty pain management with oxycodone prn. on xarelto/asa vascular following, notes reviewed. Code(s): I70.90 - UNSPECIFIED ATHEROSCLEROSIS (2) CAD (coronary artery disease) Assessment/Plan: Cont asa Code(s): I25.10 - ATHSCL HEART DISEASE OF [place] CORONARY ARTERY W/O ANG PCTRS (3) Diabetes type 2, uncontrolled Assessment/Plan: Cont sliding scale w/ coverage tightened sliding scale and increased levemir to bid for elevated bgms Code(s): E11.65 - TYPE 2 DIABETES MELLITUS WITH HYPERGLYCEMIA (4) Hypertension Assessment/Plan: BP stable Cont metoprolol Code(s): I10 - ESSENTIAL (PRIMARY) HYPERTENSION (5) HLD (hyperlipidemia) Assessment/Plan: Cont lipitor Code(s): E78.5 - HYPERLIPIDEMIA, UNSPECIFIED (6) Prophylactic measure Assessment/Plan: diabetic diet full code Code(s): Z29.9 - ENCOUNTER FOR PROPHYLACTIC MEASURES, UNSPECIFIED Visit type - Emergency Visit Emergency Visit: Yes ED Registration Date: 01/24/19 Care time: The patient presented to the Emergency Department on the above date and was hospitalized for further evaluation of their emergent condition. - New Patient This patient is new to me today: No - Critical Care Critical Care patient: No - Discharge Referral Referred to [facility] No
[2019-02-06] MEDS ORDERED: PIPERACILLIN/TAZOBACTAM 3.375 GM VIAL IVPB ONE ×2 (01:01→09:07)
[2019-02-06] MEDS ORDERED: DEXTROSE 5%-WATER - 50 ML IVPB ONE ×2 (01:02→09:07)
[2019-02-06] MEDS: PIPERACILLIN/TAZOB 3.375 GM 3.375 GM in DEXTROSE 5%-WATER - 50 ML IVPB SCH ×3 (01:05→17:32)
[2019-02-06] MEDS: DOCUSATE SODIUM 100 MG CAPSULE (FP) PO SCH ×3 (06:29→21:27)
[2019-02-06] MEDS: INSULIN SLIDING SCALE (NOVOLOG) 1 VIAL SQ SCH ×5 (06:29→21:29)
--- NOTE | 2019-02-06 08:09 | PN ---
Progress Note (short form) - Note Progress Note: Post Operative Days 01/24/19: Aortogram, RLE angiogram, infusion of thrombolysis 01/25/19: RLE angiogram, SFA angioplasty with stent placement, tibial artery angioplasty 02/01/19: Aortagram, RLE angiogram, infusion of TPA 02/02/19: RLE angiogram, anterior tibial artery, peroneal artery, posterior tibial artery angioplasty Alert. C/o right foot pain. Denies n/v/f/c, CP, palpitations, SOB or TOM. Last Vital Signs Temp Pulse Resp BP Pulse Ox 98.4 F 102 H 14 139/95 100 02/06/19 07:25 02/06/19 07:25 02/06/19 07:25 02/06/19 07:25 02/05/19 19:38 CBC, BMP 02/05/19 09:40 02/05/19 09:40 Gen: nad GEN: A&0x3, NAD RLE: Foot dry gangrene. Malodorous. Development of blister to forefoot mid foot/toes. Dopplerable PT & DP. +2 edema to foot. Sensory deficit. to the forefoot. 4/5 plantar flexion. 3/5 dorsi felxion. Problem List - Problems (1) Right leg pain Assessment/Plan: A/P: 48 y/o M w. PMHx PAD s/p R LE popliteal arterial occlusion (07/2017 s/p RLE angiogram/[facility] and TPA infusion), coronary artery disease s/p stents, hypertension, IDDM, admitted 01/23 after presenting with a cool RLE, pt noncompliant and found to have R pop occlusion s/p multiple angios w/ TPA infusion, plasty and stenting. Right foot not improving. Gangrene and now malodorous. Leukocytosis. Consult placed for Dr. Xie/Podiatry to eval for TMA Cont local wound care as ordered Above discussed with Dr. Chandler and agrees. Code(s): M79.604 - PAIN IN RIGHT LEG (2) Hypertension Code(s): I10 - ESSENTIAL (PRIMARY) HYPERTENSION
--- NOTE | 2019-02-06 09:01 | PN ---
Progress Note, Physician Chief Complaint: Pending TMA with Dr Xie today. Expressed concern about procedure History of Present Illness: Chief Complaint: right foot warm to touch, blister formation on anterior aspect of right foot. History of Present Illness: Patient is a 49 year old male with a significant past medical history of diabetes, CAD(s/p stents), HTN, presents to [facility] with c/o of a cold R foot. No change in sensations, no weakness of any part of the body, no facial drop, no prior episodes of similar pain in the past, no chest pain or SOB. He is post op right lower extremity angiogram, anterior tibial artery, peroneal artery, posterior tibial artery angioplasty with Dr. Chandler. - Current Medication List Current Medications: Active Medications Acetaminophen (Tylenol -) 650 mg PO Q4H PRN PRN Reason: FEVER Last Admin: 02/05/19 20:39 Dose: 650 mg Aspirin (Asa -) 81 mg PO DAILY [facility] Last Admin: 02/05/19 09:27 Dose: 81 mg Atorvastatin Calcium (Lipitor -) 40 mg PO HS [facility] Last Admin: 02/05/19 21:11 Dose: 40 mg Chlorhexidine Gluconate (Hibiclens For Decolonization -) 1 applic TP HS [facility] Last Admin: 02/05/19 21:10 Dose: 1 applic Dexamethasone Sodium Phosphate (Decadron Injection -) 4 mg IVPUSH ONCE PRN PRN Reason: NAUSEA AND/OR VOMITING Diphenhydramine HCl (Benadryl Injection -) 12.5 mg IVPUSH ONCE PRN PRN Reason: FOR ITCHING Docusate Sodium (Colace -) 100 mg PO TID [facility] Last Admin: 02/06/19 06:29 Dose: 100 mg Piperacillin Sod/Tazobactam (Sod 3.375 gm/ Dextrose) 50 mls @ 100 mls/hr IVPB Q8H-IV [facility] Last Admin: 02/06/19 01:05 Dose: 100 mls/hr Insulin Aspart (Novolog Vial Sliding Scale -) 1 vial SQ ACHS [facility]; Protocol Last Admin: 02/06/19 06:29 Dose: 8 units Insulin Detemir (Levemir Vial) 15 units SQ BID [facility] Lisinopril (Prinivil) 2.5 mg PO DAILY [facility] Last Admin: 02/05/19 09:27 Dose: 2.5 mg Metoprolol Tartrate (Lopressor -) 25 mg PO BID [facility] Last Admin: 02/05/19 21:11 Dose: 25 mg Metoprolol Tartrate (Lopressor Injection -) 5 mg IVPUSH Q4H PRN PRN Reason: HYPERTENSION Last Admin: 02/03/19 10:19 Dose: 5 mg Mupirocin (Bactroban Ointment (For Decolonization) -) 1 applic NS BID [facility] Stop: 02/07/19 21:59 Last Admin: 02/05/19 21:10 Dose: 1 applic Ondansetron HCl (Zofran Injection) 4 mg IVPUSH Q4H PRN PRN Reason: NAUSEA AND/OR VOMITING Oxycodone HCl (Roxicodone -) 5 mg PO Q4H PRN PRN Reason: PAIN LEVEL 6-10 Last Admin: 02/05/19 20:40 Dose: 5 mg Polyethylene Glycol (Miralax (For Daily Use) -) 17 gm PO BID [facility] Last Admin: 02/05/19 21:11 Dose: Not Given Promethazine HCl (Phenergan Injection -) 12.5 mg IVPB Q6H PRN PRN Reason: NAUSEA AND/OR VOMITING Rivaroxaban (Xarelto) 15 mg PO BID [facility] Last Admin: 02/05/19 23:28 Dose: 15 mg - Objective Vital Signs: Vital Signs Temperature 98.4 F 02/06/19 07:25 Pulse Rate 102 H 02/06/19 07:25 Respiratory Rate 14 02/06/19 07:25 Blood Pressure 139/95 02/06/19 07:25 O2 Sat by Pulse Oximetry (%) 100 02/05/19 19:38 Constitutional: Yes: Well Nourished, No Distress, Anxious Eyes: Yes: WNL, Conjunctiva Clear, EOM Intact HENT: Yes: WNL, Atraumatic, Normocephalic Neck: Yes: WNL, Supple, Trachea Midline Cardiovascular: Yes: WNL, Regular Rate and Rhythm Respiratory: Yes: WNL, Regular, CTA Bilaterally Gastrointestinal: Yes: WNL, Normal Bowel Sounds, Soft ...Rectal Exam: Yes: Deferred Genitourinary: Yes: WNL Breast(s): Yes: WNL Musculoskeletal: Yes: WNL Extremities: Yes: Other (R foot: pedal pulses dopplerable There is dry gangrenous changes to the digits 1-5, duskiness present to digits, some malodor present, no purulence, no fluctuance, no streaking cellulitis, no signs of acute infection. There is a large blister dorsal midfoot. There is moderate tenderness to palpation.) Edema: No Peripheral Pulses WNL: No (see extrem on PE) Wound/Incision: Yes: Other (see extrem on PE) Neurological: Yes: WNL, Alert, Oriented ...Motor Strength: WNL Psychiatric: Yes: WNL, Alert, Oriented Labs: CBC, BMP 02/05/19 09:40 02/05/19 09:40 INR, PTT INR 3.99 (0.83-1.09) H 02/03/19 05:20 Fibrinogen 297.0 mg/dL (238-498) 02/02/19 08:50 - ....Imaging Other: Other (01/24/19: Aortogram, RLE angiogram, infusion of thrombolysis 01/25: RLE angiogram, SFA angioplasty with stent placement, tibial artery angioplasty 02/01/19: Aortagram, RLE angiogram, infusion of TPA 02/02/19: RLE angiogram, anterior tibial artery, peroneal artery, posterior tibial artery angioplasty) Problem List - Problems (1) Diabetes Assessment/Plan: BGM AC/HS with novolog sliding scale BS better controlled but still high c/w levemir diabetic conseling will reassess when infection is better controlled nutrition counseling Code(s): E11.9 - TYPE 2 DIABETES MELLITUS WITHOUT COMPLICATIONS (2) Arterial occlusion Assessment/Plan: Duplex ultrasound revealed right popliteal, and posterior tibial artery occlusion. CTA with runoff reveals occlusive thrombus in the right popliteal artery, with nonocclusive thrombus in distal portion of right superficial femoral artery. He is post op right lower extremity angiogram, anterior tibial artery, peroneal artery, posterior tibial artery angioplasty pain management with oxycodone prn. on xarelto/asa vascular following, notes reviewed. planned TMA for today Code(s): I70.90 - UNSPECIFIED ATHEROSCLEROSIS (3) CAD (coronary artery disease) Code(s): I25.10 - ATHSCL HEART DISEASE OF [place] CORONARY ARTERY W/O ANG PCTRS (4) Diabetic foot ulcer Assessment/Plan: appreciate consultation with podiatry planned TMA ID recs ( Dr. Menon) appreciated. -c/w zosyn -afebrile >24 hr Code(s): E11.621 - TYPE 2 DIABETES MELLITUS WITH FOOT ULCER; L97.509 - NON- PRESSURE CHRONIC ULCER OTH PRT UNSP FOOT W UNSP SEVERITY (5) HLD (hyperlipidemia) Assessment/Plan: c/w lipitor low fat cholesterol diet Code(s): E78.5 - HYPERLIPIDEMIA, UNSPECIFIED (6) Obesity Assessment/Plan: nutrition conseling Code(s): E66.9 - OBESITY, UNSPECIFIED (7) Prophylactic measure Assessment/Plan: FEN NPO presentllt for TMA IVF monitor electrolytes DVT holding chemical AC Dispo maintain on tele full code discharge planning Code(s): Z29.9 - ENCOUNTER FOR PROPHYLACTIC MEASURES, UNSPECIFIED (8) Hypertension Assessment/Plan: normoptensive - c/w Lopressor 25mg BID PO - Lisinopril 2.5mg Code(s): I10 - ESSENTIAL (PRIMARY) HYPERTENSION (9) INR (international normal ratio) abnormal Assessment/Plan: AC being help for surgical procedure Code(s): R79.1 - ABNORMAL COAGULATION PROFILE Visit type - Emergency Visit Emergency Visit: Yes ED Registration Date: 01/24/19 Care time: The patient presented to the Emergency Department on the above date and was hospitalized for further evaluation of their emergent condition. - New Patient This patient is new to me today: Yes Date on this admission: 02/06/19 - Critical Care Critical Care patient: No - Discharge Referral Referred to [facility] No
[2019-02-06] MEDS ORDERED: PT OWN MED DRAWER 7, Y5N ONE (09:08)
[2019-02-06] MEDS: LISINOPRIL 5 MG TABLET (FP) PO SCH (09:10)
[2019-02-06] MEDS: ASPIRIN 81 MG CHEWABLE TABLETS PO SCH (09:10)
[2019-02-06] MEDS: METOPROLOL TARTRATE 25 MG TABLET (FP) PO SCH ×2 (09:10→21:28)
[2019-02-06] MEDS: oxyCODONE HCL 5 MG TABLET PO PRN ×2 (09:10→20:32)
[2019-02-06] MEDS: POLYETHYLENE GLYCOL 3350 119 GM BTL PO SCH ×2 (09:19→21:42)
[2019-02-06] MEDS: MUPIROCIN 2% TOPICAL OINTMENT FOR DECOLONIZATION NS SCH ×3 (09:19→21:41)
--- NOTE | 2019-02-06 09:19 | PN ---
Progress Note, Physician Chief Complaint: Pt A&Ox3; staring up, but avoids eye contact; says he does not want to talk about it now-"maybe tomorrow". 6/10 pain in right LE. History of Present Illness: Pt is a 48-year-old black male with past medical history of DVT and right lower extremity arterial occlusion status post angiogram with TPA 08/28, s/p "small [place]" ? 2016-->coronary angiogram and stent,obesity, cigarettes, who presents to ER for evaluation of right lower leg pain worsening over the past week. Patient reports he feels his leg is cold which there is any came to the emergency department for evaluation. Patient ran out of rivaroxaban. He denies fevers, chills, shortness of breath, chest pain, abdominal pain, nausea, vomiting. - Current Medication List Current Medications: Active Medications Acetaminophen (Tylenol -) 650 mg PO Q4H PRN PRN Reason: FEVER Last Admin: 02/05/19 20:39 Dose: 650 mg Aspirin (Asa -) 81 mg PO DAILY [facility] Last Admin: 02/05/19 09:27 Dose: 81 mg Atorvastatin Calcium (Lipitor -) 40 mg PO HS [facility] Last Admin: 02/05/19 21:11 Dose: 40 mg Chlorhexidine Gluconate (Hibiclens For Decolonization -) 1 applic TP HS [facility] Last Admin: 02/05/19 21:10 Dose: 1 applic Dexamethasone Sodium Phosphate (Decadron Injection -) 4 mg IVPUSH ONCE PRN PRN Reason: NAUSEA AND/OR VOMITING Diphenhydramine HCl (Benadryl Injection -) 12.5 mg IVPUSH ONCE PRN PRN Reason: FOR ITCHING Docusate Sodium (Colace -) 100 mg PO TID [facility] Last Admin: 02/06/19 06:29 Dose: 100 mg Piperacillin Sod/Tazobactam (Sod 3.375 gm/ Dextrose) 50 mls @ 100 mls/hr IVPB Q8H-IV [facility] Last Admin: 02/06/19 01:05 Dose: 100 mls/hr Insulin Aspart (Novolog Vial Sliding Scale -) 1 vial SQ ACHS [facility]; Protocol Last Admin: 02/06/19 06:29 Dose: 8 units Insulin Detemir (Levemir Vial) 15 units SQ BID [facility] Lisinopril (Prinivil) 2.5 mg PO DAILY [facility] Last Admin: 02/05/19 09:27 Dose: 2.5 mg Metoprolol Tartrate (Lopressor -) 25 mg PO BID [facility] Last Admin: 02/05/19 21:11 Dose: 25 mg Metoprolol Tartrate (Lopressor Injection -) 5 mg IVPUSH Q4H PRN PRN Reason: HYPERTENSION Last Admin: 02/03/19 10:19 Dose: 5 mg Mupirocin (Bactroban Ointment (For Decolonization) -) 1 applic NS BID [facility] Stop: 02/07/19 21:59 Last Admin: 02/05/19 21:10 Dose: 1 applic Ondansetron HCl (Zofran Injection) 4 mg IVPUSH Q4H PRN PRN Reason: NAUSEA AND/OR VOMITING Oxycodone HCl (Roxicodone -) 5 mg PO Q4H PRN PRN Reason: PAIN LEVEL 6-10 Last Admin: 02/05/19 20:40 Dose: 5 mg Polyethylene Glycol (Miralax (For Daily Use) -) 17 gm PO BID [facility] Last Admin: 02/05/19 21:11 Dose: Not Given Promethazine HCl (Phenergan Injection -) 12.5 mg IVPB Q6H PRN PRN Reason: NAUSEA AND/OR VOMITING Rivaroxaban (Xarelto) 15 mg PO BID [facility] Last Admin: 02/05/19 23:28 Dose: 15 mg - Objective Vital Signs: Vital Signs Temperature 98.4 F 02/06/19 07:25 Pulse Rate 102 H 02/06/19 07:25 Respiratory Rate 14 02/06/19 07:25 Blood Pressure 139/95 02/06/19 07:25 O2 Sat by Pulse Oximetry (%) 100 02/05/19 19:38 Constitutional: Yes: Calm, Anxious Eyes: Yes: WNL HENT: Yes: WNL Neck: Yes: WNL Cardiovascular: Yes: S1, S2 Respiratory: Yes: WNL Gastrointestinal: Yes: Soft, Abdomen, Obese ...Rectal Exam: Yes: Deferred Genitourinary: No: Anuria Labs: CBC, BMP 02/05/19 09:40 02/05/19 09:40 INR, PTT INR 3.99 (0.83-1.09) H 02/03/19 05:20 Fibrinogen 297.0 mg/dL (238-498) 02/02/19 08:50 Problem List - Problems (1) H/O heart artery stent Assessment/Plan: Hx "small [place]" ? 2016-->coronary stent. S/p RLE angioplasty and stent today. F/u lipids and keep LDL < 70 mg/dL. EKG ECHO for LVEF and wall motion, valve status; ECHO 2018 noted mild aortic root dilatation and low-normal LVEF. Code(s): Z95.5 - PRESENCE OF CORONARY ANGIOPLASTY IMPLANT AND GRAFT (2) History of heart attack Assessment/Plan: f/u records of ?2016 "small [place]". Will likely require reevaluation of coronary arteries once PAD is resolved. Continue ASA. On metoprolol (though may have to reconsider, given severe PAD). Code(s): I25.2 - OLD MYOCARDIAL INFARCTION (3) Obesity Code(s): E66.9 - OBESITY, UNSPECIFIED (4) Smokes cigarettes Code(s): F17.210 - NICOTINE DEPENDENCE, CIGARETTES, UNCOMPLICATED (5) Sedentary lifestyle Code(s): Z91.89 - OTH PERSONAL RISK FACTORS, NOT ELSEWHERE CLASSIFIED (6) HLD (hyperlipidemia) Code(s): E78.5 - HYPERLIPIDEMIA, UNSPECIFIED (7) Diabetes type 2, uncontrolled Assessment/Plan: started ACEI for renal protection, HTN, CAD. Code(s): E11.65 - TYPE 2 DIABETES MELLITUS WITH HYPERGLYCEMIA (8) Hypertension Assessment/Plan: Increase lisinopril to 10 mg daily F/u BP and HR serially. Pt is on metoprolol (HTN, CAD); however, given severe PAD, even selective beta rashaad may not be an optimal choice. Code(s): I10 - ESSENTIAL (PRIMARY) HYPERTENSION (9) PAD (peripheral artery disease) Assessment/Plan: s/p RLE angioplasty and sten. Non-healing wound; may require amputation. Code(s): I73.9 - PERIPHERAL VASCULAR DISEASE, UNSPECIFIED (10) Anxiety and depression Code(s): F41.9 - ANXIETY DISORDER, UNSPECIFIED; F32.9 - MAJOR DEPRESSIVE DISORDER, SINGLE EPISODE, UNSPECIFIED Assessment/Plan CCU time spent 35 minutes.
[2019-02-06] MEDS: ACETAMINOPHEN 325 MG TABLET (FP) PO PRN (09:20)
[2019-02-06] MEDS: RIVAROXABAN 15 MG TABLET PO SCH (09:25)
[2019-02-06] MEDS ORDERED: INSULIN (LEVEMIR) 100 UNITS/ML UNITS SQ SCH (10:00)
[2019-02-06] MEDS ORDERED: LISINOPRIL 10 MG TABLET (FP) PO SCH (10:00)
[2019-02-06 10:23] LABS: BASO % 0.9 % (0-2.0); EOS % 2.3 % (0-4.5); HEMATOCRIT 27.6 % (35.4-49); HEMOGLOBIN 9.2 GM/dL (11.7-16.9); LYMPH % 16.9 % (8-40); MCHC 33.3 g/dl (32.0-35.9); MEAN PLT VOLUME 6.9 fl (7.5-11.1); MONO % 9.4 % (3.8-10.2); NEUT % 70.5 % (42.8-82.8); PLATELET COUNT 696 K/MM3 (134-434); RBC 3.54 M/mm3 (4.00-5.60); RDW 14.4 % (11.9-15.9); WHITE BLOOD COUNT 14.2 K/mm3 (4.0-10.0)
--- NOTE | 2019-02-06 10:45 | PN ---
Teaching Attending Note Name of Resident: Khushboo Salcedo ATTENDING PHYSICIAN STATEMENT I saw and evaluated the patient. I reviewed the resident's note and discussed the case with the resident. I agree with the resident's findings and plan as documented. SUBJECTIVE: Pt seen and examined in the ICU. c/o right foot pain and numbness. Being evaluated for TMA. OBJECTIVE: Vital Signs Period Temp Pulse Resp BP Sys/Miller Pulse Ox Last 24 Hr 98 F-98.4 F 93-116 14-22 110-145/62-104 100 Intake & Output 02/03/19 02/04/19 02/05/19 02/06/19 23:59 23:59 23:59 23:59 Intake Total 2300 875 580 100 Output Total 2850 2050 800 Balance -550 -1175 -220 100 Weight 123.377 kg 122.8 kg 123.2 kg 123.377 kg Gen: NAD at rest Heart: RRR Lung: decreased breath sounds at the bases Abd: soft, nontender Ext: R foot edema, +blister, +ischemic demarcation CBC, BMP 02/06/19 09:55 02/06/19 09:55 Active Medications Acetaminophen (Tylenol -) 650 mg PO Q4H PRN PRN Reason: FEVER Last Admin: 02/06/19 09:20 Dose: 650 mg Aspirin (Asa -) 81 mg PO DAILY [facility] Last Admin: 02/06/19 09:10 Dose: 81 mg Atorvastatin Calcium (Lipitor -) 40 mg PO HS [facility] Last Admin: 02/05/19 21:11 Dose: 40 mg Chlorhexidine Gluconate (Hibiclens For Decolonization -) 1 applic TP [facility] Last Admin: 02/05/19 21:10 Dose: 1 applic Dexamethasone Sodium Phosphate (Decadron Injection -) 4 mg IVPUSH ONCE PRN PRN Reason: NAUSEA AND/OR VOMITING Diphenhydramine HCl (Benadryl Injection -) 12.5 mg IVPUSH ONCE PRN PRN Reason: FOR ITCHING Docusate Sodium (Colace -) 100 mg PO TID [facility] Last Admin: 02/06/19 06:29 Dose: 100 mg Piperacillin Sod/Tazobactam (Sod 3.375 gm/ Dextrose) 50 mls @ 100 mls/hr IVPB Q8H-IV [facility] Last Admin: 02/06/19 09:12 Dose: 100 mls/hr Insulin Aspart (Novolog Vial Sliding Scale -) 1 vial SQ [facility]; Protocol Last Admin: 02/06/19 06:29 Dose: 8 units Insulin Detemir (Levemir Vial) 15 units SQ BID [facility] Last Admin: 02/06/19 10:13 Dose: 15 units Lisinopril (Prinivil) 10 mg PO DAILY [facility] Metoprolol Tartrate (Lopressor -) 25 mg PO BID [facility] Last Admin: 02/06/19 09:10 Dose: 25 mg Metoprolol Tartrate (Lopressor Injection -) 5 mg IVPUSH Q4H PRN PRN Reason: HYPERTENSION Last Admin: 02/03/19 10:19 Dose: 5 mg Mupirocin (Bactroban Ointment (For Decolonization) -) 1 applic NS BID [facility] Stop: 02/07/19 21:59 Last Admin: 02/06/19 09:19 Dose: 1 applic Ondansetron HCl (Zofran Injection) 4 mg IVPUSH Q4H PRN PRN Reason: NAUSEA AND/OR VOMITING Oxycodone HCl (Roxicodone -) 5 mg PO Q4H PRN PRN Reason: PAIN LEVEL 6-10 Last Admin: 02/06/19 09:10 Dose: 5 mg Polyethylene Glycol (Miralax (For Daily Use) -) 17 gm PO BID [facility] Last Admin: 02/06/19 09:19 Dose: Not Given Promethazine HCl (Phenergan Injection -) 12.5 mg IVPB Q6H PRN PRN Reason: NAUSEA AND/OR VOMITING Rivaroxaban (Xarelto) 15 mg PO BID [facility] Last Admin: 02/06/19 09:25 Dose: Not Given ASSESSMENT AND PLAN: Right Popliteal Artery/Posterior Tibial Artery Thrombus s/p RLE Anigiogram/SFA Angioplasty/Stent/Tibial Artery Angioplasty 01/25 RLE Ischemia s/p RLE Angiogram/tPA infusion 02/01 s/p RLE Angiogram/Anterior Tibial/Peroneal/Posterior Tibial Artery Angioplasty CAD s/p PCI stenting HTN DM - pulse checks - continue anticoagulation - pain control - antibiotics per ID - O2 to keep SpO2 >90% - surgery considering R TMA - can monitor on floor
[2019-02-06 10:49] LABS: ALBUMIN 1.9 g/dl (3.4-5.0); BILIRUBIN,TOTAL 0.3 mg/dL (0.2-1); BLOOD UREA NITROGEN 11.4 mg/dL (7-18); CALCIUM 8.8 mg/dL (8.5-10.1); MAGNESIUM 2.4 mg/dL (1.8-2.4); PHOSPHOROUS 3.1 mg/dL (2.5-4.9); POTASSIUM 4.1 mmol/L (3.5-5.1); TOT PROT 7.1 g/dl (6.4-8.2)
--- NOTE | 2019-02-06 10:54 | CONSULT ---
Consult - text type - Consultation Consultation Note: Podiatry Consultation: 49 year old diabetic male, history of CAD s/p stents, history of significant complex PAD with history of arterial occlusions requiring TPA, presents with acute ischemic right foot. The patient reports he was at work and noted sharp pains to his right foot which prompted admission. He has had TPA with Dr. Chandler in the past for ischemic foot and did not follow up appropriately. I was asked to consult for evaluation of patients progressive ischemic foot. PMHx: DM, HTN, HLP, CAD s/p stent, PAD s/p revascularization and thrombolysis Meds: noted ALL: NKMA ASHTYN: R foot: pedal pulses dopplerable, TG wnl. There is dry gangrenous changes to the digits 1-5, duskiness present to digits, some malodor present, no purulence , no fluctuance, no streaking cellulitis, no signs of acute infection. Theree is a large blister dorsal midfoot. There is moderate tenderness to palpation. IMp: 49 year old diabetic, PVD male with right forefoot gangrene 1. Discussed treatment options at length with patient. He does understand the need for TMA in order to attempt to salvage the rest of the leg. Will plan for TMA today in the afternoon. I discussed with Dr. Chandler as well. 2. NPO now. 3. WIll follow closely. Thank you for the courtesy of this consultation. Pipe Xie DPM
--- NOTE | 2019-02-06 12:24 | PN ---
Physical Exam: SUBJECTIVE: Patient seen and examined at bedside. pt has no acute complaints. OBJECTIVE: Vital Signs Period Temp Pulse Resp BP Sys/Miller Pulse Ox Last 24 Hr 98.1 F-98.4 F 88-116 14-22 104-145/62-104 100 GENERAL: The patient is awake, alert, and fully oriented, in no acute distress. HEAD: Normal with no signs of trauma. LUNGS: Breath sounds equal, clear to auscultation bilaterally, no wheezes, no crackles, no accessory muscle use. HEART: Regular rate and rhythm, S1, S2 without murmur, rub or gallop. ABDOMEN: Soft, nontender, nondistended, normoactive bowel sounds, no guarding EXTREMITIES: 2+ pulses, warm, well-perfused, no edema. R foot edema, + blistering, +ischemic demarcation SKIN: Warm, dry, normal turgor, no rashes or lesions noted Laboratory Results - last 24 hr 02/05/19 02/05/19 02/06/19 16:50 21:07 05:15 WBC RBC Hgb Hct MCV MCH MCHC RDW Plt Count MPV Absolute Neuts (auto) Neutrophils % Lymphocytes % Monocytes % Eosinophils % Basophils % Nucleated RBC % Sodium Potassium Chloride Carbon Dioxide Anion Gap BUN Creatinine Est GFR (CKD-EPI)AfAm Est GFR (CKD-EPI)NonAf POC Glucometer 294 365 212 Random Glucose Calcium Phosphorus Magnesium Total Bilirubin AST ALT Alkaline Phosphatase Total Protein Albumin 02/06/19 02/06/19 02/06/19 09:55 09:55 12:11 WBC 14.2 H RBC 3.54 L Hgb 9.2 L Hct 27.6 L MCV 78.0 L MCH 26.0 MCHC 33.3 RDW 14.4 Plt Count 696 H MPV 6.9 L Absolute Neuts (auto) 10.0 H Neutrophils % 70.5 Lymphocytes % 16.9 Monocytes % 9.4 Eosinophils % 2.3 Basophils % 0.9 Nucleated RBC % 0 Sodium 136 Potassium 4.1 Chloride 98 Carbon Dioxide 32 Anion Gap 7 L BUN 11.4 Creatinine 1.0 Est GFR (CKD-EPI)AfAm 102.69 Est GFR (CKD-EPI)NonAf 88.61 POC Glucometer 162 Random Glucose 168 H Calcium 8.8 Phosphorus 3.1 Magnesium 2.4 Total Bilirubin 0.3 AST 83 H ALT 45 Alkaline Phosphatase 92 Total Protein 7.1 Albumin 1.9 L Current Medications Acetaminophen (Tylenol -) 650 mg PO Q4H PRN PRN Reason: FEVER Last Admin: 02/06/19 09:20 Dose: 650 mg Aspirin (Asa -) [address] [facility] Last Admin: 02/06/19 09:10 Dose: 81 mg Atorvastatin Calcium (Lipitor -) 40 mg PO [facility] Last Admin: 02/05/19 21:11 Dose: 40 mg Chlorhexidine Gluconate (Hibiclens For Decolonization -) [address] [facility] Last Admin: 02/05/19 21:10 Dose: 1 applic Dexamethasone Sodium Phosphate (Decadron Injection -) 4 mg IVPUSH ONCE PRN PRN Reason: NAUSEA AND/OR VOMITING Diphenhydramine HCl (Benadryl Injection -) 12.5 mg IVPUSH ONCE PRN PRN Reason: FOR ITCHING Docusate Sodium (Colace -) [address] [facility] Last Admin: 02/06/19 06:29 Dose: 100 mg Piperacillin Sod/Tazobactam (Sod 3.375 gm/ Dextrose) 50 mls @ 100 mls/hr IVPB Q8H-IV [facility] Last Admin: 02/06/19 09:12 Dose: 100 mls/hr Insulin Aspart (Novolog Vial Sliding Scale -) 1 vial SQ [facility]; Protocol Last Admin: 02/06/19 12:12 Dose: Not Given Insulin Detemir (Levemir Vial) [address] [facility] Last Admin: 02/06/19 10:13 Dose: 15 units Lisinopril (Prinivil) [address] [facility] Last Admin: 02/06/19 12:14 Dose: Not Given Metoprolol Tartrate (Lopressor -) [address] [facility] Last Admin: 02/06/19 09:10 Dose: 25 mg Metoprolol Tartrate (Lopressor Injection -) 5 mg IVPUSH Q4H PRN PRN Reason: HYPERTENSION Last Admin: 02/03/19 10:19 Dose: 5 mg Mupirocin (Bactroban Ointment (For Decolonization) -) [address] [facility] Stop: 02/07/19 21:59 Last Admin: 02/06/19 09:19 Dose: 1 applic Ondansetron HCl (Zofran Injection) 4 mg IVPUSH Q4H PRN PRN Reason: NAUSEA AND/OR VOMITING Oxycodone HCl (Roxicodone -) 5 mg PO Q4H PRN PRN Reason: PAIN LEVEL 6-10 Last Admin: 02/06/19 09:10 Dose: 5 mg Polyethylene Glycol (Miralax (For Daily Use) -) [address] [facility] Last Admin: 02/06/19 09:19 Dose: Not Given Promethazine HCl (Phenergan Injection -) 12.5 mg IVPB Q6H PRN PRN Reason: NAUSEA AND/OR VOMITING Rivaroxaban (Xarelto) [address] [facility] Last Admin: 02/06/19 09:25 Dose: Not Given ASSESSMENT/PLAN: 49 y/o M with a PMH of RLE (popliteal artery, posterior tibial artery) occlusion 2/2 poor anticoagulation compliance who presented with RLE pain, s/p angiogram/angioplasty with stent placement. Right Popliteal Artery/Posterior Tibial Artery Thrombus s/p RLE Anigiogram/SFA Angioplasty/Stent/Tibial Artery Angioplasty 01/25 RLE Ischemia s/p RLE Angiogram/tPA infusion 02/01 s/p RLE Angiogram/Anterior Tibial/Peroneal/Posterior Tibial Artery Angioplasty CAD s/p PCI stenting HTN DM Neurology -pt is AAOX3, -neurologically intact Cardiovascular CAD s/p PCI stenting HTN - continuing home meds- ASA 81 DAILY for CAD/stenting hx - hold xarelto for procedure - continuing Lipitor 40mg HS PO - continuing Lopressor 25mg BID PO - Lisinopril 2.5mg Pulmonary - monitor SaO2 maintaining >90% - on RA. Gastroenterology - miralax 17g BID - 12.5 promethazine q6h pRN for nausea and vomiting - zofran 4mg Q4Hprn Vascular Right Popliteal Artery/Posterior Tibial Artery Thrombus s/p RLE Anigiogram/SFA Angioplasty/Stent/Tibial Artery Angioplasty 01/25 RLE Ischemia s/p RLE Angiogram/tPA infusion 02/01 s/p RLE Angiogram/Anterior Tibial/Peroneal/Posterior Tibial Artery Angioplasty - pain management w oxycodone 10mg po - Dr. Chandler consulted -Dr. Xie consulted -Pt may go to OR tomorrow for possible TMA. NPO after midnight, will hold anticoagulation ID -ID recs ( Dr. Menon) appreciated. -c/w zosyn -afebrile >24 hrs Endocrine DM - c/w BGM ACHS and ISS FEN: -off fluids -Monitor electrolytes and replete as necessary -low Na, diabetic diet, NPO after midnight for possible surgery amputation DVT PPX - hold xarelto for procedure Dispo:transfer to med surg Visit type - Emergency Visit Emergency Visit: No - New Patient This patient is new to me today: No - Critical Care Critical Care patient: Yes Total Critical Care Time (in minutes): 36 Critical Care Statement: The care of this patient involved high complexity decision making to prevent further life threatening deterioration of the patient 's condition and/or to evaluate & treat vital organ system(s) failure or risk of failure. - Discharge Referral Referred to [facility] Med P.C.: No ATTENDING PHYSICIAN STATEMENT I saw and evaluated the patient. I reviewed the resident's note and discussed the case with the resident. I agree with the resident's findings and plan as documented. SUBJECTIVE: OBJECTIVE: ASSESSMENT AND PLAN:
--- NOTE | 2019-02-06 13:35 | PN ---
Progress Note, Physician History of Present Illness: patient stable now has big bleb on the foot wbc still high podiatry on case - Current Medication List Current Medications: Active Medications Acetaminophen (Tylenol -) 650 mg PO Q4H PRN PRN Reason: FEVER Last Admin: 02/06/19 09:20 Dose: 650 mg Aspirin (Asa -) 81 mg PO DAILY [facility] Last Admin: 02/06/19 09:10 Dose: 81 mg Atorvastatin Calcium (Lipitor -) 40 mg PO HS [facility] Last Admin: 02/05/19 21:11 Dose: 40 mg Chlorhexidine Gluconate (Hibiclens For Decolonization -) 1 applic TP HS [facility] Last Admin: 02/05/19 21:10 Dose: 1 applic Dexamethasone Sodium Phosphate (Decadron Injection -) 4 mg IVPUSH ONCE PRN PRN Reason: NAUSEA AND/OR VOMITING Diphenhydramine HCl (Benadryl Injection -) 12.5 mg IVPUSH ONCE PRN PRN Reason: FOR ITCHING Docusate Sodium (Colace -) 100 mg PO TID [facility] Last Admin: 02/06/19 06:29 Dose: 100 mg Doxycycline Hyclate (Vibramycin -) 100 mg PO BID@1000,1800 [facility] Piperacillin Sod/Tazobactam (Sod 3.375 gm/ Dextrose) 50 mls @ 100 mls/hr IVPB Q8H-IV [facility] Last Admin: 02/06/19 09:12 Dose: 100 mls/hr Insulin Aspart (Novolog Vial Sliding Scale -) 1 vial SQ [facility]; Protocol Last Admin: 02/06/19 12:12 Dose: Not Given Insulin Detemir (Levemir Vial) 15 units SQ BID [facility] Last Admin: 02/06/19 10:13 Dose: 15 units Lisinopril (Prinivil) 10 mg PO DAILY [facility] Last Admin: 02/06/19 12:14 Dose: Not Given Metoprolol Tartrate (Lopressor -) 25 mg PO BID [facility] Last Admin: 02/06/19 09:10 Dose: 25 mg Metoprolol Tartrate (Lopressor Injection -) 5 mg IVPUSH Q4H PRN PRN Reason: HYPERTENSION Last Admin: 02/03/19 10:19 Dose: 5 mg Mupirocin (Bactroban Ointment (For Decolonization) -) 1 applic NS BID [facility] Stop: 02/07/19 21:59 Last Admin: 02/06/19 09:19 Dose: 1 applic Ondansetron HCl (Zofran Injection) 4 mg IVPUSH Q4H PRN PRN Reason: NAUSEA AND/OR VOMITING Oxycodone HCl (Roxicodone -) 5 mg PO Q4H PRN PRN Reason: PAIN LEVEL 6-10 Last Admin: 02/06/19 09:10 Dose: 5 mg Polyethylene Glycol (Miralax (For Daily Use) -) 17 gm PO BID [facility] Last Admin: 02/06/19 09:19 Dose: Not Given Promethazine HCl (Phenergan Injection -) 12.5 mg IVPB Q6H PRN PRN Reason: NAUSEA AND/OR VOMITING Rivaroxaban (Xarelto) 15 mg PO BID [facility] Last Admin: 02/06/19 09:25 Dose: Not Given - Objective Vital Signs: Vital Signs Temperature 98.4 F 02/06/19 07:25 Pulse Rate 88 02/06/19 12:15 Respiratory Rate 20 02/06/19 12:15 Blood Pressure 104/70 02/06/19 12:15 O2 Sat by Pulse Oximetry (%) 100 02/05/19 19:38 Constitutional: Yes: No Distress, Calm Cardiovascular: Yes: S1, S2 Respiratory: Yes: Regular, CTA Bilaterally Gastrointestinal: Yes: Normal Bowel Sounds, Soft Musculoskeletal: Yes: WNL Extremities: Yes: Other Neurological: Yes: Alert, Oriented Labs: CBC, BMP 02/06/19 09:55 02/06/19 09:55 INR, PTT INR 3.99 (0.83-1.09) H 02/03/19 05:20 Fibrinogen 297.0 mg/dL (238-498) 02/02/19 08:50 Assessment/Plan Problem List - Problems (1) Arterial occlusion Code(s): I70.90 - UNSPECIFIED ATHEROSCLEROSIS (2) CAD (coronary artery disease) Code(s): I25.10 - ATHSCL HEART DISEASE OF [place] CORONARY ARTERY W/O ANG PCTRS (3) H/O heart artery stent Code(s): Z95.5 - PRESENCE OF CORONARY ANGIOPLASTY IMPLANT AND GRAFT (4) HLD (hyperlipidemia) Code(s): E78.5 - HYPERLIPIDEMIA, UNSPECIFIED (5) Hematuria Code(s): R31.9 - HEMATURIA, UNSPECIFIED (6) Obesity Code(s): E66.9 - OBESITY, UNSPECIFIED (7) PAD (peripheral artery disease) Code(s): I73.9 - PERIPHERAL VASCULAR DISEASE, UNSPECIFIED (8) Right leg pain Code(s): M79.604 - PAIN IN RIGHT LEG (9) Smokes cigarettes Code(s): F17.210 - NICOTINE DEPENDENCE, CIGARETTES, UNCOMPLICATED (10) Diabetes type 2, uncontrolled Code(s): E11.65 - TYPE 2 DIABETES MELLITUS WITH HYPERGLYCEMIA (11) Hypertension Code(s): I10 - ESSENTIAL (PRIMARY) HYPERTENSION Assessment/Plan 49 y.o. male with PMH of DVT, RLE arterial occlusion s/p TPA (has not been taking Xarelto due to lack of insurance coverage), obesity, CAD s/p stent, CHF, HTN, HLD, DM presented with c/o severe RLE pain x 1 wk and foot feeling cold. Noted to have Rt popliteal and tibial arterial occlusion and initially underwent thrombolysis but then subsequently had SFA angioplasty with stent and tibial artery angioplasty on 01/25/19. Pt noted to have increasing wbc count since yesterday and mild temp elevation to 99.3F. +recent hematuria Leukocytosis RLE popliteal and tibial artery occlusion s/p angioplasty/stent Hematuria Hx of RLE arterial occlusion s/p TPA CAD s/p stent CHF DM HTN HLD Obesity plan patients foot still ischemic bleb formation on the foot plan is for trans met amputatin rest as per the team
--- NOTE | 2019-02-06 15:52 | PN ---
Progress Note (short form) - Note Progress Note: Podiatry Brief Note: Surgery postponed due to INR elevated significantly. Will hold off until for surgery once INR is better stabilized. Pipe Xie DPM
[2019-02-06 16:22] LABS: INR 1.54 (0.83-1.09); PROTHROMBIN TIME (PATIENT) 18.3 SEC (9.7-13.0)
[2019-02-06 16:25] LABS: ACTIVATED PTT 32.1 SECONDS (25.2-36.5)
[2019-02-06] MEDS: DOXYCYCLINE HYCLATE 100 MG CAPSULE PO SCH (17:32)
[2019-02-06] MEDS ORDERED: ACETAMINOPHEN 325 MG TABLET (FP) PO PRN (18:26)
[2019-02-06] MEDS ORDERED: PROMETHAZINE HCL 25 MG/1 ML VIAL IVPB PRN (18:26)
[2019-02-06] MEDS ORDERED: DEXAMETHASONE SOD PHOSPHATE 4 MG/1 ML VIAL IVPUSH PRN (18:26)
[2019-02-06] MEDS ORDERED: METOPROLOL TARTRATE 5 MG/5 ML VIAL IVPUSH PRN (18:26)
[2019-02-06] MEDS ORDERED: ONDANSETRON 4 MG/2 ML VIAL IVPUSH PRN (18:26)
[2019-02-06] MEDS ORDERED: INSULIN (NOVOLOG) ASPART 100 UNITS/ML 10ML VIAL ONE (20:29)
[2019-02-06] MEDS: INSULIN (LEVEMIR) 100 UNITS/ML UNITS SQ SCH (21:28)
[2019-02-06] MEDS: ATORVASTATIN CA 40 MG TABLET (FP) PO SCH (21:28)
[2019-02-06] MEDS: CHLORHEXIDINE GLUCONATE 4% CLEANSER FOR DECOLONIZATION TP SCH (21:42)
[2019-02-06] MEDS ORDERED: RIVAROXABAN 15 MG TABLET PO SCH (22:00)
[2019-02-07] MEDS ORDERED: PIPERACILLIN/TAZOBACTAM 3.375 GM VIAL IVPB ONE ×4 (00:05→23:34)
[2019-02-07] MEDS ORDERED: DEXTROSE 5%-WATER - 50 ML IVPB ONE ×3 (00:05→18:01)
[2019-02-07] MEDS: PIPERACILLIN/TAZOB 3.375 GM 3.375 GM in DEXTROSE 5%-WATER - 50 ML IVPB SCH ×3 (01:02→18:08)
[2019-02-07] MEDS: oxyCODONE HCL 5 MG TABLET PO PRN ×3 (01:05→19:56)
[2019-02-07] MEDS: DOCUSATE SODIUM 100 MG CAPSULE (FP) PO SCH ×3 (06:01→21:23)
[2019-02-07] MEDS: INSULIN SLIDING SCALE (NOVOLOG) 1 VIAL SQ SCH ×4 (06:01→21:30)
[2019-02-07] MEDS: INSULIN (LEVEMIR) 100 UNITS/ML UNITS SQ SCH ×2 (06:04→21:30)
[2019-02-07 06:54] LABS: INR 1.85 (0.83-1.09)
[2019-02-07] MEDS ORDERED: HEPARIN - 25,000 UNIT in SODIUM CHLORIDE 495 ML IV SCH (08:30)
--- NOTE | 2019-02-07 08:32 | PN ---
Progress Note, Physician Chief Complaint: Pending TMA with Dr Xie today. Expressed concern about procedure History of Present Illness: Chief Complaint: Pt continues to complain of Rt foot pain. Pt is scheduled for Rt TMA tomorrow with Dr. Serrano. History of Present Illness: Patient is a 49 year old male with a significant past medical history of diabetes, CAD(s/p stents), HTN, presents to [facility] with c/o of a cold R foot. No change in sensations, no weakness of any part of the body, no facial drop, no prior episodes of similar pain in the past, no chest pain or SOB. He is post op right lower extremity angiogram, anterior tibial artery, peroneal artery, posterior tibial artery angioplasty with Dr. Chandler. - Current Medication List Current Medications: Active Medications Acetaminophen (Tylenol -) 650 mg PO Q4H PRN PRN Reason: FEVER Aspirin (Asa -) 81 mg PO DAILY [facility] Atorvastatin Calcium (Lipitor -) 40 mg PO HS [facility] Last Admin: 02/06/19 21:28 Dose: 40 mg Chlorhexidine Gluconate (Hibiclens For Decolonization -) 1 applic TP HS [facility] Last Admin: 02/06/19 21:42 Dose: Not Given Dexamethasone Sodium Phosphate (Decadron Injection -) 4 mg IVPUSH ONCE PRN PRN Reason: NAUSEA AND/OR VOMITING Diphenhydramine HCl (Benadryl Injection -) 12.5 mg IVPUSH ONCE PRN PRN Reason: FOR ITCHING Docusate Sodium (Colace -) 100 mg PO TID [facility] Last Admin: 02/07/19 06:01 Dose: 100 mg Doxycycline Hyclate (Vibramycin -) 100 mg PO BID@1000,1800 [facility] Last Admin: 02/06/19 17:32 Dose: 100 mg Piperacillin Sod/Tazobactam (Sod 3.375 gm/ Dextrose) 50 mls @ 100 mls/hr IVPB Q8H-IV [facility] Last Admin: 02/07/19 01:02 Dose: 100 mls/hr Heparin Sodium (Porcine) 25, (000 unit/ Sodium Chloride) 500 mls @ 20 mls/hr IV TITR [facility]; Protocol Insulin Aspart (Novolog Vial Sliding Scale -) 1 vial SQ ACHS [facility]; Protocol Last Admin: 02/07/19 06:01 Dose: 8 units Insulin Detemir (Levemir Vial) 15 units SQ BID@0700,2200 [facility] Last Admin: 02/07/19 06:04 Dose: 15 units Lisinopril (Prinivil) 10 mg PO DAILY [facility] Metoprolol Tartrate (Lopressor -) 25 mg PO BID [facility] Last Admin: 02/06/19 21:28 Dose: 25 mg Metoprolol Tartrate (Lopressor Injection -) 5 mg IVPUSH Q4H PRN PRN Reason: HYPERTENSION Mupirocin (Bactroban Ointment (For Decolonization) -) 1 applic NS BID [facility] Stop: 02/07/19 21:59 Last Admin: 02/06/19 21:41 Dose: Not Given Ondansetron HCl (Zofran Injection) 4 mg IVPUSH Q4H PRN PRN Reason: NAUSEA AND/OR VOMITING Oxycodone HCl (Roxicodone -) 5 mg PO Q4H PRN PRN Reason: PAIN LEVEL 6-10 Last Admin: 02/07/19 06:07 Dose: 5 mg Polyethylene Glycol (Miralax (For Daily Use) -) 17 gm PO BID [facility] Last Admin: 02/06/19 21:42 Dose: Not Given Promethazine HCl (Phenergan Injection -) 12.5 mg IVPB Q6H PRN PRN Reason: NAUSEA AND/OR VOMITING - Objective Vital Signs: Vital Signs Temperature 98.5 F 02/07/19 07:11 Pulse Rate 99 H 02/07/19 07:11 Respiratory Rate 20 02/07/19 07:11 Blood Pressure 116/80 02/07/19 07:11 O2 Sat by Pulse Oximetry (%) 99 02/06/19 21:00 Constitutional: Yes: Well Nourished, No Distress Eyes: Yes: WNL, Conjunctiva Clear, EOM Intact HENT: Yes: WNL, Atraumatic, Normocephalic Neck: Yes: WNL, Supple, Trachea Midline Cardiovascular: Yes: WNL, Regular Rate and Rhythm Respiratory: Yes: WNL, Regular, CTA Bilaterally Gastrointestinal: Yes: WNL, Normal Bowel Sounds, Soft ...Rectal Exam: Yes: Deferred Genitourinary: Yes: WNL Breast(s): Yes: WNL Musculoskeletal: Yes: WNL Extremities: Yes: Other (Yes: Other (R foot: pedal pulses dopplerable There is dry gangrenous changes to the digits 1-5, duskiness present to digits, some malodor present, no purulence, no fluctuance, no streaking cellulitis, no signs of acute infection. There is a large blister dorsal midfoot. There is moderate tenderness to palpation.)) Edema: No Peripheral Pulses WNL: Yes Integumentary: Yes: Other (see extrem) Neurological: Yes: WNL, Alert, Oriented ...Motor Strength: WNL Psychiatric: Yes: WNL, Alert, Oriented Labs: CBC, BMP 02/06/19 09:55 02/06/19 09:55 INR, PTT INR 1.85 (0.83-1.09) H 02/07/19 06:00 Fibrinogen 297.0 mg/dL (238-498) 02/02/19 08:50 Problem List - Problems (1) Diabetes Assessment/Plan: BGM AC/HS with novolog sliding scale BS better controlled but still high c/w levemir diabetic conseling will reassess when infection is better controlled nutrition counseling Code(s): E11.9 - TYPE 2 DIABETES MELLITUS WITHOUT COMPLICATIONS (2) Arterial occlusion Assessment/Plan: Duplex ultrasound revealed right popliteal, and posterior tibial artery occlusion. CTA with runoff reveals occlusive thrombus in the right popliteal artery, with nonocclusive thrombus in distal portion of right superficial femoral artery. He is post op right lower extremity angiogram, anterior tibial artery, peroneal artery, posterior tibial artery angioplasty pain management with oxycodone prn. on xarelto/asa vascular following, notes reviewed. planned TMA for Thurs due to high INR Code(s): I70.90 - UNSPECIFIED ATHEROSCLEROSIS (3) CAD (coronary artery disease) Code(s): I25.10 - ATHSCL HEART DISEASE OF [place] CORONARY ARTERY W/O ANG PCTRS (4) Diabetic foot ulcer Assessment/Plan: appreciate consultation with podiatry planned TMA ID recs ( Dr. Menon) appreciated. -c/w zosyn -afebrile >24 hr Code(s): E11.621 - TYPE 2 DIABETES MELLITUS WITH FOOT ULCER; L97.509 - NON- PRESSURE CHRONIC ULCER OTH PRT UNSP FOOT W UNSP SEVERITY (5) HLD (hyperlipidemia) Assessment/Plan: c/w lipitor low fat cholesterol diet Code(s): E78.5 - HYPERLIPIDEMIA, UNSPECIFIED (6) Obesity Assessment/Plan: nutrition conseling Code(s): E66.9 - OBESITY, UNSPECIFIED (7) Prophylactic measure Assessment/Plan: FEN NPO presentllt for TMA IVF monitor electrolytes DVT heparin gtt until planned OR Dispo maintain on tele full code discharge planning Code(s): Z29.9 - ENCOUNTER FOR PROPHYLACTIC MEASURES, UNSPECIFIED (8) Hypertension Assessment/Plan: normoptensive - c/w Lopressor 25mg BID PO - Lisinopril 2.5mg Code(s): I10 - ESSENTIAL (PRIMARY) HYPERTENSION (9) INR (international normal ratio) abnormal Assessment/Plan: started on heparin gtt Code(s): R79.1 - ABNORMAL COAGULATION PROFILE Visit type - Emergency Visit Emergency Visit: Yes ED Registration Date: 01/24/19 Care time: The patient presented to the Emergency Department on the above date and was hospitalized for further evaluation of their emergent condition. - New Patient This patient is new to me today: No - Critical Care Critical Care patient: No - Discharge Referral Referred to [facility] Med P.C.: No
[2019-02-07] MEDS ORDERED: HEPARIN NA (PORCINE) 5,000 UNITS/ML 1ML VIAL IVPUSH PRN (09:09)
[2019-02-07] MEDS: DOXYCYCLINE HYCLATE 100 MG CAPSULE PO SCH ×2 (09:20→18:08)
[2019-02-07] MEDS: LISINOPRIL 10 MG TABLET (FP) PO SCH (09:20)
[2019-02-07] MEDS: METOPROLOL TARTRATE 25 MG TABLET (FP) PO SCH ×2 (09:20→21:23)
[2019-02-07] MEDS: ASPIRIN 81 MG CHEWABLE TABLETS PO SCH (09:20)
[2019-02-07] MEDS: MUPIROCIN 2% TOPICAL OINTMENT FOR DECOLONIZATION NS SCH (09:23)
[2019-02-07] MEDS: POLYETHYLENE GLYCOL 3350 119 GM BTL PO SCH ×2 (09:28→21:34)
[2019-02-07 09:36] LABS: BASO % 1.3 % (0-2.0); EOS % 2.7 % (0-4.5); HEMATOCRIT 28.2 % (35.4-49); HEMOGLOBIN 9.3 GM/dL (11.7-16.9); LYMPH % 21.9 % (8-40); MCH 25.7 pg (25.7-33.7); MCHC 32.8 g/dl (32.0-35.9); MEAN CELL VOLUME 78.6 fl (80-96); MEAN PLT VOLUME 6.9 fl (7.5-11.1); MONO % 8.2 % (3.8-10.2); NEUT % 65.9 % (42.8-82.8); PLATELET COUNT 797 K/MM3 (134-434); RDW 14.5 % (11.9-15.9); WHITE BLOOD COUNT 12.2 K/mm3 (4.0-10.0)
[2019-02-07 09:46] LABS: BILIRUBIN,TOTAL 0.3 mg/dL (0.2-1); BLOOD UREA NITROGEN 11.3 mg/dL (7-18); CALCIUM 8.6 mg/dL (8.5-10.1); MAGNESIUM 2.3 mg/dL (1.8-2.4); POTASSIUM 4.7 mmol/L (3.5-5.1); TOT PROT 7.1 g/dl (6.4-8.2)
--- NOTE | 2019-02-07 10:07 | PN ---
Progress Note (short form) - Note Progress Note: 49yo M s/p RLE thrombolysis and necrotic toes. Pt seen and examined at bedside. Pt continues to complain of Rt foot pain. Pt is scheduled for Rt TMA tomorrow with Dr. Serrano. Last Vital Signs Temp Pulse Resp BP Pulse Ox 98.5 F 99 H 20 116/80 99 02/07/19 07:11 02/07/19 07:11 02/07/19 07:11 02/07/19 07:11 02/06/19 21:00 CBC, BMP 02/07/19 05:30 02/07/19 05:30 PE: Gen: A&O X3 Resp: breathing comfortably RLE: Foot dry gangrene. Malodorous. Development of blister to forefoot mid foot/toes. +1 PT pulse. +2 edema to foot. Sensory deficit. to the forefoot. 4/ 5 plantar flexion. 3/5 dorsi felxion. Problem List - Problems (1) Arterial occlusion Assessment/Plan: Plan -Pt scheduled for Rt foot TMA tomorrow with Dr. Serrano. -hold xeralto and switch to heparin drip -npo after midnight Code(s): I70.90 - UNSPECIFIED ATHEROSCLEROSIS
[2019-02-07] MEDS ORDERED: PT OWN MED DRAWER 7, Y5N ONE (10:42)
[2019-02-07 10:48] LABS: ANISOCYTOSIS 1+; MACROCYTOSIS 0; PLATELET ESTIMATE INCREASED
[2019-02-07] MEDS: HEPARIN - 25,000 UNIT in SODIUM CHLORIDE 495 ML IV SCH ×2 (10:50→19:50)
--- NOTE | 2019-02-07 17:22 | PN ---
Progress Note, Physician History of Present Illness: stable no new issues podiary plan noted - Current Medication List Current Medications: Active Medications Acetaminophen (Tylenol -) 650 mg PO Q4H PRN PRN Reason: FEVER Aspirin (Asa -) 81 mg PO DAILY [facility] Last Admin: 02/07/19 09:20 Dose: 81 mg Atorvastatin Calcium (Lipitor -) 40 mg PO HS [facility] Last Admin: 02/06/19 21:28 Dose: 40 mg Chlorhexidine Gluconate (Hibiclens For Decolonization -) 1 applic TP [facility] Last Admin: 02/06/19 21:42 Dose: Not Given Dexamethasone Sodium Phosphate (Decadron Injection -) 4 mg IVPUSH ONCE PRN PRN Reason: NAUSEA AND/OR VOMITING Diphenhydramine HCl (Benadryl Injection -) 12.5 mg IVPUSH ONCE PRN PRN Reason: FOR ITCHING Docusate Sodium (Colace -) 100 mg PO TID [facility] Last Admin: 02/07/19 13:43 Dose: 100 mg Doxycycline Hyclate (Vibramycin -) 100 mg PO BID@1000,1800 [facility] Last Admin: 02/07/19 09:20 Dose: 100 mg Heparin Sodium (Porcine) (Heparin -) 1,000 unit IVPUSH PRN PRN PRN Reason: Heparin Heparin Sodium (Porcine) (Heparin -) 5,000 unit IVPUSH PRN PRN PRN Reason: Heparin Piperacillin Sod/Tazobactam (Sod 3.375 gm/ Dextrose) 50 mls @ 100 mls/hr IVPB Q8H-IV [facility] Last Admin: 02/07/19 09:19 Dose: 100 mls/hr Heparin Sodium (Porcine) 25, (000 unit/ Sodium Chloride) 500 mls @ 20 mls/hr IV TITR [facility]; Protocol Last Admin: 02/07/19 10:50 Dose: 1,000 unit/hr, 20 mls/hr Insulin Aspart (Novolog Vial Sliding Scale -) 1 vial SQ ACHS [facility]; Protocol Last Admin: 02/07/19 12:09 Dose: 10 units Insulin Detemir (Levemir Vial) 15 units SQ BID@0700,2200 [facility] Last Admin: 02/07/19 06:04 Dose: 15 units Lisinopril (Prinivil) 10 mg PO DAILY [facility] Last Admin: 02/07/19 09:20 Dose: 10 mg Metoprolol Tartrate (Lopressor -) 25 mg PO BID [facility] Last Admin: 02/07/19 09:20 Dose: 25 mg Metoprolol Tartrate (Lopressor Injection -) 5 mg IVPUSH Q4H PRN PRN Reason: HYPERTENSION Mupirocin (Bactroban Ointment (For Decolonization) -) 1 applic NS BID [facility] Stop: 02/07/19 21:59 Last Admin: 02/07/19 09:23 Dose: Not Given Ondansetron HCl (Zofran Injection) 4 mg IVPUSH Q4H PRN PRN Reason: NAUSEA AND/OR VOMITING Oxycodone HCl (Roxicodone -) 5 mg PO Q4H PRN PRN Reason: PAIN LEVEL 6-10 Last Admin: 02/07/19 06:07 Dose: 5 mg Polyethylene Glycol (Miralax (For Daily Use) -) 17 gm PO BID [facility] Last Admin: 02/07/19 09:28 Dose: 17 gm Promethazine HCl (Phenergan Injection -) 12.5 mg IVPB Q6H PRN PRN Reason: NAUSEA AND/OR VOMITING - Objective Vital Signs: Vital Signs Temperature 98.6 F 02/07/19 16:55 Pulse Rate 97 H 02/07/19 16:55 Respiratory Rate 20 02/07/19 16:55 Blood Pressure 130/79 02/07/19 16:55 O2 Sat by Pulse Oximetry (%) 99 02/07/19 09:00 Constitutional: Yes: Calm Cardiovascular: Yes: S1, S2 Respiratory: Yes: Regular, CTA Bilaterally Gastrointestinal: Yes: Normal Bowel Sounds, Soft Musculoskeletal: Yes: WNL Extremities: Yes: Other Neurological: Yes: Alert, Oriented Psychiatric: Yes: Alert, Oriented Labs: CBC, BMP 02/07/19 05:30 02/07/19 05:30 INR, PTT INR 1.85 (0.83-1.09) H 02/07/19 06:00 Fibrinogen 297.0 mg/dL (238-498) 02/02/19 08:50 Assessment/Plan Problem List - Problems (1) Arterial occlusion Code(s): I70.90 - UNSPECIFIED ATHEROSCLEROSIS (2) CAD (coronary artery disease) Code(s): I25.10 - ATHSCL HEART DISEASE OF [place] CORONARY ARTERY W/O ANG PCTRS (3) H/O heart artery stent Code(s): Z95.5 - PRESENCE OF CORONARY ANGIOPLASTY IMPLANT AND GRAFT (4) HLD (hyperlipidemia) Code(s): E78.5 - HYPERLIPIDEMIA, UNSPECIFIED (5) Hematuria Code(s): R31.9 - HEMATURIA, UNSPECIFIED (6) Obesity Code(s): E66.9 - OBESITY, UNSPECIFIED (7) PAD (peripheral artery disease) Code(s): I73.9 - PERIPHERAL VASCULAR DISEASE, UNSPECIFIED (8) Right leg pain Code(s): M79.604 - PAIN IN RIGHT LEG (9) Smokes cigarettes Code(s): F17.210 - NICOTINE DEPENDENCE, CIGARETTES, UNCOMPLICATED (10) Diabetes type 2, uncontrolled Code(s): E11.65 - TYPE 2 DIABETES MELLITUS WITH HYPERGLYCEMIA (11) Hypertension Code(s): I10 - ESSENTIAL (PRIMARY) HYPERTENSION Assessment/Plan 49 y.o. male with PMH of DVT, RLE arterial occlusion s/p TPA (has not been taking Xarelto due to lack of insurance coverage), obesity, CAD s/p stent, CHF, HTN, HLD, DM presented with c/o severe RLE pain x 1 wk and foot feeling cold. Noted to have Rt popliteal and tibial arterial occlusion and initially underwent thrombolysis but then subsequently had SFA angioplasty with stent and tibial artery angioplasty on 01/25/19. Pt noted to have increasing wbc count since yesterday and mild temp elevation to 99.3F. +recent hematuria Leukocytosis RLE popliteal and tibial artery occlusion s/p angioplasty/stent Hematuria Hx of RLE arterial occlusion s/p TPA CAD s/p stent CHF DM HTN HLD Obesity plan ischemic foot continue abx plan for surgery rest as per the team
[2019-02-07] MEDS: HEPARIN NA (PORCINE) 5,000 UNITS/ML 1ML VIAL IVPUSH PRN (19:56)
[2019-02-07] MEDS: ATORVASTATIN CA 40 MG TABLET (FP) PO SCH (21:23)
[2019-02-07] MEDS: CHLORHEXIDINE GLUCONATE 4% CLEANSER FOR DECOLONIZATION TP SCH (21:33)
[2019-02-07] MEDS ORDERED: DEXTROSE 5%-WATER - 100 ML IVPB ONE (23:34)
[2019-02-08] MEDS: PIPERACILLIN/TAZOB 3.375 GM 3.375 GM in DEXTROSE 5%-WATER - 50 ML IVPB SCH ×3 (01:38→17:28)
[2019-02-08] MEDS: oxyCODONE HCL 5 MG TABLET PO PRN ×2 (02:06→16:56)
[2019-02-08] MEDS: HEPARIN - 25,000 UNIT in SODIUM CHLORIDE 495 ML IV SCH (03:21)
[2019-02-08] MEDS: HEPARIN NA (PORCINE) 5,000 UNITS/ML 1ML VIAL IVPUSH PRN (03:21)
[2019-02-08] MEDS: DOCUSATE SODIUM 100 MG CAPSULE (FP) PO SCH ×3 (05:14→21:25)
[2019-02-08 06:24] LABS: INR 1.34 (0.83-1.09); PROTHROMBIN TIME (PATIENT) 15.8 SEC (9.7-13.0)
[2019-02-08] MEDS: INSULIN SLIDING SCALE (NOVOLOG) 1 VIAL SQ SCH ×4 (06:52→21:36)
[2019-02-08] MEDS: INSULIN (LEVEMIR) 100 UNITS/ML UNITS SQ SCH ×2 (06:56→21:25)
[2019-02-08] MEDS: LISINOPRIL 10 MG TABLET (FP) PO SCH ×2 (07:40→09:02)
[2019-02-08] MEDS: METOPROLOL TARTRATE 25 MG TABLET (FP) PO SCH ×3 (07:40→21:25)
[2019-02-08] MEDS ORDERED: LIDOCAINE HCL/PF 2% SDV 5ML VIAL ONE (08:15)
[2019-02-08] MEDS ORDERED: PROPOFOL 20 ML ONE ×5 (08:16→10:02)
[2019-02-08] MEDS ORDERED: EPHEDRINE SULFATE/0.9% NACL/PF 50 MG/10 ML SYRINGE NR ONE (08:16)
[2019-02-08] MEDS ORDERED: SUCCINYLCHOLINE CHLORIDE 200 MG/10 ML SYRINGE ONE (08:16)
[2019-02-08] MEDS ORDERED: MIDAZOLAM HCL 2 MG/2 ML SINGLE DOSE VIAL ONE ×2 (08:18→09:21)
[2019-02-08] MEDS ORDERED: PIPERACILLIN/TAZOBACTAM 3.375 GM VIAL IVPB ONE ×3 (08:51→17:15)
[2019-02-08] MEDS ORDERED: DEXTROSE 5%-WATER - 50 ML IVPB ONE ×2 (08:52→17:16)
[2019-02-08] MEDS: POLYETHYLENE GLYCOL 3350 119 GM BTL PO SCH ×2 (09:01→21:31)
[2019-02-08] MEDS: ASPIRIN 81 MG CHEWABLE TABLETS PO SCH (09:01)
[2019-02-08] MEDS: DOXYCYCLINE HYCLATE 100 MG CAPSULE PO SCH ×2 (09:02→17:29)
[2019-02-08] MEDS ORDERED: LIDOCAINE HCL 2% (20ML MULTI-DOSE VIAL) NR ONE (09:13)
[2019-02-08] MEDS ORDERED: LIDOCAINE HCL 2% (50ML VIAL) NR ONE (09:28)
[2019-02-08] MEDS ORDERED: HYDROmorphone HCl 2 MG/ML VIAL ONE (09:31)
--- NOTE | 2019-02-08 10:11 | PN ---
Progress Note, Physician History of Present Illness: no new issues going for surgery - Current Medication List Current Medications: Active Medications Acetaminophen (Tylenol -) 650 mg PO Q4H PRN PRN Reason: FEVER Aspirin (Asa -) 81 mg PO DAILY [facility] Last Admin: 02/08/19 09:01 Dose: Not Given Atorvastatin Calcium (Lipitor -) 40 mg PO HS [facility] Last Admin: 02/07/19 21:23 Dose: 40 mg Chlorhexidine Gluconate (Hibiclens For Decolonization -) 1 applic TP [facility] Last Admin: 02/07/19 21:33 Dose: Not Given Dexamethasone Sodium Phosphate (Decadron Injection -) 4 mg IVPUSH ONCE PRN PRN Reason: NAUSEA AND/OR VOMITING Diphenhydramine HCl (Benadryl Injection -) 12.5 mg IVPUSH ONCE PRN PRN Reason: FOR ITCHING Docusate Sodium (Colace -) 100 mg PO TID [facility] Last Admin: 02/08/19 05:14 Dose: Not Given Doxycycline Hyclate (Vibramycin -) 100 mg PO BID@1000,1800 [facility] Last Admin: 02/08/19 09:02 Dose: Not Given Heparin Sodium (Porcine) (Heparin -) 1,000 unit IVPUSH PRN PRN PRN Reason: Heparin Heparin Sodium (Porcine) (Heparin -) 5,000 unit IVPUSH PRN PRN PRN Reason: Heparin Last Admin: 02/08/19 03:21 Dose: 5,000 unit Piperacillin Sod/Tazobactam (Sod 3.375 gm/ Dextrose) 50 mls @ 100 mls/hr IVPB Q8H-IV [facility] Last Admin: 02/08/19 01:38 Dose: 100 mls/hr Insulin Aspart (Novolog Vial Sliding Scale -) 1 vial SQ ACHS [facility]; Protocol Last Admin: 02/08/19 06:52 Dose: Not Given Insulin Detemir (Levemir Vial) 15 units SQ BID@0700,2200 [facility] Last Admin: 02/08/19 06:56 Dose: Not Given Lisinopril (Prinivil) 10 mg PO DAILY [facility] Last Admin: 02/08/19 09:02 Dose: Not Given Metoprolol Tartrate (Lopressor -) 25 mg PO BID [facility] Last Admin: 02/08/19 09:01 Dose: Not Given Metoprolol Tartrate (Lopressor Injection -) 5 mg IVPUSH Q4H PRN PRN Reason: HYPERTENSION Ondansetron HCl (Zofran Injection) 4 mg IVPUSH Q4H PRN PRN Reason: NAUSEA AND/OR VOMITING Oxycodone HCl (Roxicodone -) 5 mg PO Q4H PRN PRN Reason: PAIN LEVEL 6-10 Last Admin: 02/08/19 02:06 Dose: 5 mg Polyethylene Glycol (Miralax (For Daily Use) -) 17 gm PO BID [facility] Last Admin: 02/08/19 09:01 Dose: Not Given Promethazine HCl (Phenergan Injection -) 12.5 mg IVPB Q6H PRN PRN Reason: NAUSEA AND/OR VOMITING - Objective Vital Signs: Vital Signs Temperature 98.2 F 02/08/19 08:58 Pulse Rate 94 H 02/08/19 08:58 Respiratory Rate 20 02/08/19 08:58 Blood Pressure 135/85 02/08/19 08:58 O2 Sat by Pulse Oximetry (%) 99 02/08/19 08:30 Constitutional: Yes: No Distress, Calm Cardiovascular: Yes: S1, S2 Respiratory: Yes: Regular, CTA Bilaterally Gastrointestinal: Yes: Normal Bowel Sounds, Soft Musculoskeletal: Yes: WNL Extremities: Yes: Other Wound/Incision: Yes: Clean/Dry Neurological: Yes: Alert, Oriented Psychiatric: Yes: Alert, Oriented Labs: CBC, BMP 02/07/19 05:30 02/07/19 05:30 INR, PTT INR 1.34 (0.83-1.09) H 02/08/19 05:45 Fibrinogen 297.0 mg/dL (238-498) 02/02/19 08:50 Assessment/Plan Problem List - Problems (1) Arterial occlusion Code(s): I70.90 - UNSPECIFIED ATHEROSCLEROSIS (2) CAD (coronary artery disease) Code(s): I25.10 - ATHSCL HEART DISEASE OF [place] CORONARY ARTERY W/O ANG PCTRS (3) H/O heart artery stent Code(s): Z95.5 - PRESENCE OF CORONARY ANGIOPLASTY IMPLANT AND GRAFT (4) HLD (hyperlipidemia) Code(s): E78.5 - HYPERLIPIDEMIA, UNSPECIFIED (5) Hematuria Code(s): R31.9 - HEMATURIA, UNSPECIFIED (6) Obesity Code(s): E66.9 - OBESITY, UNSPECIFIED (7) PAD (peripheral artery disease) Code(s): I73.9 - PERIPHERAL VASCULAR DISEASE, UNSPECIFIED (8) Right leg pain Code(s): M79.604 - PAIN IN RIGHT LEG (9) Smokes cigarettes Code(s): F17.210 - NICOTINE DEPENDENCE, CIGARETTES, UNCOMPLICATED (10) Diabetes type 2, uncontrolled Code(s): E11.65 - TYPE 2 DIABETES MELLITUS WITH HYPERGLYCEMIA (11) Hypertension Code(s): I10 - ESSENTIAL (PRIMARY) HYPERTENSION Assessment/Plan 49 y.o. male with PMH of DVT, RLE arterial occlusion s/p TPA (has not been taking Xarelto due to lack of insurance coverage), obesity, CAD s/p stent, CHF, HTN, HLD, DM presented with c/o severe RLE pain x 1 wk and foot feeling cold. Noted to have Rt popliteal and tibial arterial occlusion and initially underwent thrombolysis but then subsequently had SFA angioplasty with stent and tibial artery angioplasty on 01/25/19. Pt noted to have increasing wbc count since yesterday and mild temp elevation to 99.3F. +recent hematuria Leukocytosis RLE popliteal and tibial artery occlusion s/p angioplasty/stent Hematuria Hx of RLE arterial occlusion s/p TPA CAD s/p stent CHF DM HTN HLD Obesity plan ischemic foot continue abx for surgery today rest as per the team
--- NOTE | 2019-02-08 10:42 | OP ---
Operative Note - Note: Operative Date: 02/08/19 Pre-Operative Diagnosis: Right foot gangrene Operation: Right foot Trans met amputation Findings: see dictation Post-Operative Diagnosis: Same as Pre-op Surgeon: Kt Waller Anesthesia: Local, MAC Specimens Removed: Bone; micro and pathology Estimated Blood Loss (mls): 30 Operative Report Dictated: No
[2019-02-08] MEDS ORDERED: METOPROLOL TARTRATE 5 MG/5 ML VIAL IVPB PRN (11:06)
[2019-02-08] MEDS ORDERED: PROMETHAZINE HCL 25 MG/1 ML VIAL IVPB PRN (11:06)
[2019-02-08] MEDS ORDERED: HEPARIN NA (PORCINE) 5,000 UNITS/ML 1ML VIAL IVPUSH PRN ×2 (11:06)
[2019-02-08] MEDS ORDERED: ACETAMINOPHEN 325 MG TABLET (FP) PO PRN (11:06)
[2019-02-08] MEDS ORDERED: oxyCODONE HCL 5 MG TABLET PO PRN ×2 (11:06→16:47)
[2019-02-08] MEDS ORDERED: DEXAMETHASONE SOD PHOSPHATE 4 MG/1 ML VIAL IVPUSH PRN (11:06)
[2019-02-08] MEDS ORDERED: ONDANSETRON 4 MG/2 ML VIAL IVPUSH PRN (11:06)
[2019-02-08] MEDS ORDERED: PT OWN MED DRAWER 7, Y5N ONE (12:17)
[2019-02-08] MEDS: RIVAROXABAN 15 MG TABLET PO SCH ×2 (12:19→17:29)
--- NOTE | 2019-02-08 15:17 | PN ---
Progress Note, Physician Chief Complaint: Pending TMA with Dr Waller today. History of Present Illness: Chief Complaint: Pt continues to complain of Rt foot pain. Pt is scheduled for Rt TMA today History of Present Illness: Patient is a 49 year old male with a significant past medical history of diabetes, CAD(s/p stents), HTN, presents to [facility] with c/o of a cold R foot. No change in sensations, no weakness of any part of the body, no facial drop, no prior episodes of similar pain in the past, no chest pain or SOB. He is post op right lower extremity angiogram, anterior tibial artery, peroneal artery, posterior tibial artery angioplasty with Dr. Chandler. - Current Medication List Current Medications: Active Medications Acetaminophen (Tylenol -) 650 mg PO Q4H PRN PRN Reason: FEVER Last Admin: 02/08/19 14:25 Dose: 650 mg Aspirin (Asa -) 81 mg PO DAILY [facility] Atorvastatin Calcium (Lipitor -) 40 mg PO HS [facility] Dexamethasone Sodium Phosphate (Decadron Injection -) 4 mg IVPUSH ONCE PRN PRN Reason: NAUSEA AND/OR VOMITING Diphenhydramine HCl (Benadryl Injection -) 12.5 mg IVPUSH ONCE PRN PRN Reason: FOR ITCHING Docusate Sodium (Colace -) 100 mg PO TID [facility] Last Admin: 02/08/19 13:08 Dose: 100 mg Doxycycline Hyclate (Vibramycin -) 100 mg PO BID@1000,1800 [facility] Piperacillin Sod/Tazobactam (Sod 3.375 gm/ Dextrose) 50 mls @ 100 mls/hr IVPB Q8H-IV [facility] Insulin Aspart (Novolog Vial Sliding Scale -) 1 vial SQ ACHS [facility]; Protocol Insulin Detemir (Levemir Vial) 15 units SQ BID@0700,2200 [facility] Lisinopril (Prinivil) 10 mg PO DAILY [facility] Metoprolol Tartrate (Lopressor -) 25 mg PO BID [facility] Metoprolol Tartrate (Lopressor Injection -) 5 mg IVPB Q4H PRN PRN Reason: HYPERTENSION Ondansetron HCl (Zofran Injection) 4 mg IVPUSH Q4H PRN PRN Reason: NAUSEA AND/OR VOMITING Oxycodone HCl (Roxicodone -) 5 mg PO Q4H PRN PRN Reason: PAIN LEVEL 6-10 Last Admin: 02/08/19 13:08 Dose: 5 mg Polyethylene Glycol (Miralax (For Daily Use) -) 17 gm PO BID [facility] Rivaroxaban (Xarelto) 15 mg PO BIDWM [facility] Last Admin: 02/08/19 12:19 Dose: 15 mg - Objective Vital Signs: Vital Signs Temperature 98.2 F 02/08/19 14:22 Pulse Rate 105 H 02/08/19 14:22 Respiratory Rate 20 02/08/19 14:22 Blood Pressure 125/74 02/08/19 14:22 O2 Sat by Pulse Oximetry (%) 98 02/08/19 12:00 Constitutional: Yes: No Distress, Anxious (about procedure) Eyes: Yes: WNL, Conjunctiva Clear, EOM Intact HENT: Yes: WNL, Atraumatic, Normocephalic Neck: Yes: WNL, Supple, Trachea Midline Cardiovascular: Yes: WNL, Regular Rate and Rhythm Respiratory: Yes: WNL, Regular, CTA Bilaterally Gastrointestinal: Yes: WNL, Normal Bowel Sounds, Soft, Abdomen, Obese ...Rectal Exam: Yes: Deferred Genitourinary: Yes: WNL Breast(s): Yes: WNL Musculoskeletal: Yes: WNL Extremities: Yes: Other (Other (R foot: pedal pulses dopplerable There is dry gangrenous changes to the digits 1-5, duskiness present to digits, some malodor present, no purulence, no fluctuance, no streaking cellulitis, no signs of acute infection. There is a large blister dorsal midfoot. There is moderate tenderness to palpation) Edema: Yes Edema: LLE: Trace, RLE: Trace Peripheral Pulses WNL: No Integumentary: Yes: Other (see extrem) Neurological: Yes: WNL, Alert, Oriented ...Motor Strength: WNL Psychiatric: Yes: WNL, Alert, Oriented Labs: CBC, BMP 02/07/19 05:30 02/07/19 05:30 INR, PTT INR 1.34 (0.83-1.09) H 02/08/19 05:45 Fibrinogen 297.0 mg/dL (238-498) 02/02/19 08:50 Problem List - Problems (1) Diabetes Assessment/Plan: BGM AC/HS with novolog sliding scale BS better controlled but still high c/w levemir diabetic counseling will reassess when infection is better controlled nutrition counseling Code(s): E11.9 - TYPE 2 DIABETES MELLITUS WITHOUT COMPLICATIONS (2) Arterial occlusion Assessment/Plan: Duplex ultrasound revealed right popliteal, and posterior tibial artery occlusion. CTA with runoff reveals occlusive thrombus in the right popliteal artery, with nonocclusive thrombus in distal portion of right superficial femoral artery. He is post op right lower extremity angiogram, anterior tibial artery, peroneal artery, posterior tibial artery angioplasty pain management with oxycodone prn. on xarelto/asa vascular following, notes reviewed. planned TMA today Code(s): I70.90 - UNSPECIFIED ATHEROSCLEROSIS (3) CAD (coronary artery disease) Code(s): I25.10 - ATHSCL HEART DISEASE OF [place] CORONARY ARTERY W/O ANG PCTRS (4) Diabetic foot ulcer Assessment/Plan: appreciate consultation with podiatry planned TMA ID recs ( Dr. Menon) appreciated. -c/w zosyn -afebrile Code(s): E11.621 - TYPE 2 DIABETES MELLITUS WITH FOOT ULCER; L97.509 - NON- PRESSURE CHRONIC ULCER OTH PRT UNSP FOOT W UNSP SEVERITY (5) HLD (hyperlipidemia) Assessment/Plan: c/w lipitor low fat cholesterol diet Code(s): E78.5 - HYPERLIPIDEMIA, UNSPECIFIED (6) Obesity Assessment/Plan: nutrition counseling Code(s): E66.9 - OBESITY, UNSPECIFIED (7) Prophylactic measure Assessment/Plan: FEN NPO presentllt for TMA IVF monitor electrolytes DVT heparin gtt stopped at 6am for surgery Dispo maintain on tele full code discharge planning Code(s): Z29.9 - ENCOUNTER FOR PROPHYLACTIC MEASURES, UNSPECIFIED (8) Hypertension Assessment/Plan: normoptensive - c/w Lopressor 25mg BID PO - Lisinopril 2.5mg Code(s): I10 - ESSENTIAL (PRIMARY) HYPERTENSION (9) INR (international normal ratio) abnormal Assessment/Plan: INR 1.35 Code(s): R79.1 - ABNORMAL COAGULATION PROFILE Visit type - Emergency Visit Emergency Visit: Yes ED Registration Date: 01/24/19 Care time: The patient presented to the Emergency Department on the above date and was hospitalized for further evaluation of their emergent condition. - New Patient This patient is new to me today: No - Critical Care Critical Care patient: No - Discharge Referral Referred to [facility] Med P.C.: No
[2019-02-08] MEDS ORDERED: oxyCODONE HCL 5 MG TABLET PO ONE (16:52)
[2019-02-08] MEDS: ATORVASTATIN CA 40 MG TABLET (FP) PO SCH (21:25)
[2019-02-08] MEDS ORDERED: INSULIN (NOVOLOG) ASPART 100 UNITS/ML 10ML VIAL ONE (21:35)
[2019-02-08] MEDS ORDERED: CHLORHEXIDINE GLUCONATE 4% CLEANSER FOR DECOLONIZATION TP SCH (22:00)
[2019-02-09] MEDS ORDERED: DEXTROSE 5%-WATER - 50 ML IVPB ONE ×3 (01:28→16:56)
[2019-02-09] MEDS ORDERED: PIPERACILLIN/TAZOBACTAM 3.375 GM VIAL IVPB ONE ×3 (01:28→16:56)
[2019-02-09] MEDS: PIPERACILLIN/TAZOB 3.375 GM 3.375 GM in DEXTROSE 5%-WATER - 50 ML IVPB SCH ×3 (01:53→17:13)
[2019-02-09] MEDS: oxyCODONE HCL 5 MG TABLET PO PRN ×3 (05:50→21:45)
[2019-02-09] MEDS: DOCUSATE SODIUM 100 MG CAPSULE (FP) PO SCH ×3 (05:52→21:37)
--- NOTE | 2019-02-09 06:27 | PN ---
Progress Note (short form) - Note Progress Note: Podiatry F/U: Seen/evaluated at bedside NAD. Pain is well controlled, denies F/V/N/C/SOB/CP. Afebrile. S/p Right transmetatarsal amputation POD#1. ASHTYN: R foot: pedal pulses dopplerable, TG wnl. Sutures well coapted along TMA site, no active bleeding, no bandage strikethrough. There is no purulent drainage, no fluctuance, no streaking cellulitis, no signs of active infection. Minimal tenderness to palpation. No ischemic changes noted to the incision site. The flap is warm and well perfused. Dorsal flap in area of blister has pink and warm skin and tissue, all viable. Imp: 49 year old diabetic, PVD male s/p right transmetatarsal amputation POD#1 1. Dressing change performed without complication. Xeroform and DSD R foot. 2. Pain control 3. Minimal weightbearing right foot for now 4. Please leave dressing clean and dry tomorrow and will perform dressing change Tuesday or Tuesday. Can reinforce dressing if there is strikethrough. 5. Will follow. Pipe Xie DPM
[2019-02-09] MEDS ORDERED: INSULIN (LEVEMIR) 100 UNITS/ML UNITS SQ ONE ×3 (06:35→06:54)
[2019-02-09] MEDS ORDERED: INSULIN (NOVOLOG) ASPART 100 UNITS/ML 10ML VIAL ONE (06:37)
[2019-02-09] MEDS: INSULIN SLIDING SCALE (NOVOLOG) 1 VIAL SQ SCH ×4 (06:48→21:39)
[2019-02-09] MEDS: INSULIN (LEVEMIR) 100 UNITS/ML UNITS SQ SCH ×2 (06:49→21:39)
[2019-02-09] MEDS ORDERED: PT OWN MED DRAWER 7, Y5N ONE ×3 (07:41→09:33)
[2019-02-09] MEDS: RIVAROXABAN 15 MG TABLET PO SCH ×2 (07:48→17:12)
[2019-02-09 08:20] LABS: HEMATOCRIT 27.3 % (35.4-49); HEMOGLOBIN 8.9 GM/dL (11.7-16.9); MCH 25.4 pg (25.7-33.7); MCHC 32.6 g/dl (32.0-35.9); MEAN CELL VOLUME 78.1 fl (80-96); MEAN PLT VOLUME 6.6 fl (7.5-11.1); RDW 14.6 % (11.9-15.9); WHITE BLOOD COUNT 16.7 K/mm3 (4.0-10.0)
--- NOTE | 2019-02-09 08:49 | PN ---
Progress Note, Physician Chief Complaint: s/p right transmetatarsal amputation POD#1. Patient states pain is well managed History of Present Illness: History of Present Illness: Patient is a 49 year old male with a significant past medical history of diabetes, CAD(s/p stents), HTN, presents to [facility] with c/o of a cold R foot. No change in sensations, no weakness of any part of the body, no facial drop, no prior episodes of similar pain in the past, no chest pain or SOB. He is post op right lower extremity angiogram, anterior tibial artery, peroneal artery, posterior tibial artery angioplasty with Dr. Chandler. - Current Medication List Current Medications: Active Medications Acetaminophen (Tylenol -) 650 mg PO Q4H PRN PRN Reason: FEVER Last Admin: 02/08/19 14:25 Dose: 650 mg Aspirin (Asa -) 81 mg PO DAILY [facility] Atorvastatin Calcium (Lipitor -) 40 mg PO HS [facility] Last Admin: 02/08/19 21:25 Dose: 40 mg Dexamethasone Sodium Phosphate (Decadron Injection -) 4 mg IVPUSH ONCE PRN PRN Reason: NAUSEA AND/OR VOMITING Diphenhydramine HCl (Benadryl Injection -) 12.5 mg IVPUSH ONCE PRN PRN Reason: FOR ITCHING Docusate Sodium (Colace -) 100 mg PO TID [facility] Last Admin: 02/09/19 05:52 Dose: 100 mg Doxycycline Hyclate (Vibramycin -) 100 mg PO BID@1000,1800 [facility] Last Admin: 02/08/19 17:29 Dose: 100 mg Piperacillin Sod/Tazobactam (Sod 3.375 gm/ Dextrose) 50 mls @ 100 mls/hr IVPB Q8H-IV [facility] Last Admin: 02/09/19 01:53 Dose: 100 mls/hr Insulin Aspart (Novolog Vial Sliding Scale -) 1 vial SQ ACHS [facility]; Protocol Last Admin: 02/09/19 06:48 Dose: 6 units Insulin Detemir (Levemir Vial) 15 units SQ BID@0700,2200 [facility] Last Admin: 02/09/19 06:49 Dose: 15 units Lisinopril (Prinivil) 10 mg PO DAILY [facility] Metoprolol Tartrate (Lopressor -) 25 mg PO BID [facility] Last Admin: 02/08/19 21:25 Dose: 25 mg Metoprolol Tartrate (Lopressor Injection -) 5 mg IVPB Q4H PRN PRN Reason: HYPERTENSION Ondansetron HCl (Zofran Injection) 4 mg IVPUSH Q4H PRN PRN Reason: NAUSEA AND/OR VOMITING Oxycodone HCl (Roxicodone -) 5 mg PO Q3H PRN PRN Reason: PAIN LEVEL 4 - 6 Oxycodone HCl (Roxicodone -) 10 mg PO Q3H PRN PRN Reason: PAIN LEVEL 7 - 10 Last Admin: 02/09/19 05:50 Dose: 10 mg Polyethylene Glycol (Miralax (For Daily Use) -) 17 gm PO BID [facility] Last Admin: 02/08/19 21:31 Dose: 17 gm [facility]) [facility] Last Admin: 02/09/19 07:48 Dose: 15 mg - Objective Vital Signs: Vital Signs Temperature 99.9 F H 02/09/19 06:26 Pulse Rate 105 H 02/09/19 06:26 Respiratory Rate 18 02/09/19 06:26 Blood Pressure 126/77 02/09/19 06:26 O2 Sat by Pulse Oximetry (%) 100 02/08/19 21:00 Constitutional: Yes: Well Nourished, No Distress, Calm Eyes: Yes: WNL, Conjunctiva Clear, EOM Intact HENT: Yes: WNL, Atraumatic, Normocephalic Neck: Yes: WNL, Supple, Trachea Midline Cardiovascular: Yes: WNL, Regular Rate and Rhythm Respiratory: Yes: WNL, Regular, CTA Bilaterally Gastrointestinal: Yes: WNL, Normal Bowel Sounds, Soft, Abdomen, Obese ...Rectal Exam: Yes: Deferred Genitourinary: Yes: WNL Breast(s): Yes: WNL Musculoskeletal: Yes: WNL Extremities: Yes: Amputation (Right TMA) Edema: No Peripheral Pulses WNL: No (Dressing to tight foot) Wound/Incision: Yes: Clean/Dry, Dressing Dry and Intact Neurological: Yes: WNL, Alert, Oriented ...Motor Strength: RLE (s/p TMA surgeical dressing c/d/i/) Psychiatric: Yes: WNL, Alert, Oriented Labs: CBC, BMP 02/09/19 07:15 02/07/19 05:30 INR, PTT INR 1.34 (0.83-1.09) H 02/08/19 05:45 Fibrinogen 297.0 mg/dL (238-498) 02/02/19 08:50 Problem List - Problems (1) Diabetes Assessment/Plan: BGM AC/HS with novolog sliding scale BS better controlled c/w levemir diabetic counseling will reassess when infection is better controlled nutrition counseling Code(s): E11.9 - TYPE 2 DIABETES MELLITUS WITHOUT COMPLICATIONS (2) Arterial occlusion Assessment/Plan: Duplex ultrasound revealed right popliteal, and posterior tibial artery occlusion. CTA with runoff reveals occlusive thrombus in the right popliteal artery, with nonocclusive thrombus in distal portion of right superficial femoral artery. He is post op right lower extremity angiogram, anterior tibial artery, peroneal artery, posterior tibial artery angioplasty pain management with oxycodone prn. c/w xarelto/asa vascular following, notes reviewed. s/p right transmetatarsal amputation POD#1 Code(s): I70.90 - UNSPECIFIED ATHEROSCLEROSIS (3) CAD (coronary artery disease) Code(s): I25.10 - ATHSCL HEART DISEASE OF [place] CORONARY ARTERY W/O ANG PCTRS (4) Diabetic foot ulcer Assessment/Plan: s/p right transmetatarsal amputation POD#1 ID recs ( Dr. Menon) appreciated. -c/w zosyn -afebrile Dresing intact from Dr Waller: R foot: pedal pulses dopplerable, TG wnl. Sutures well coapted along TMA site, no active bleeding, no bandage strikethrough. There is no purulent drainage, no fluctuance, no streaking cellulitis, no signs of active infection. Minimal tenderness to palpation. No ischemic changes noted to the incision site. The flap is warm and well perfused. Dorsal flap in area of blister has pink and warm skin and tissue, all viable. -dressing assessed and changed as per surgical team either sun/erick Code(s): E11.621 - TYPE 2 DIABETES MELLITUS WITH FOOT ULCER; L97.509 - NON- PRESSURE CHRONIC ULCER OTH PRT UNSP FOOT W UNSP SEVERITY (5) HLD (hyperlipidemia) Assessment/Plan: c/w lipitor low fat cholesterol diet Code(s): E78.5 - HYPERLIPIDEMIA, UNSPECIFIED (6) Obesity Assessment/Plan: nutrition counseling Code(s): E66.9 - OBESITY, UNSPECIFIED (7) Prophylactic measure Assessment/Plan: FEN NPO presentllt for TMA IVF monitor electrolytes DVT heparin gtt stopped at 6am for surgery Dispo maintain on tele full code discharge planning Code(s): Z29.9 - ENCOUNTER FOR PROPHYLACTIC MEASURES, UNSPECIFIED (8) Hypertension Assessment/Plan: normoptensive - c/w Lopressor 25mg BID PO - Lisinopril 2.5mg Code(s): I10 - ESSENTIAL (PRIMARY) HYPERTENSION Visit type - Emergency Visit Emergency Visit: Yes ED Registration Date: 01/24/19 Care time: The patient presented to the Emergency Department on the above date and was hospitalized for further evaluation of their emergent condition. - New Patient This patient is new to me today: No - Critical Care Critical Care patient: No - Discharge Referral Referred to [facility] Med P.C.: No
--- NOTE | 2019-02-09 08:55 | PN ---
Progress Note, Physician History of Present Illness: patient stable no new issues post op doing well - Current Medication List Current Medications: Active Medications Acetaminophen (Tylenol -) 650 mg PO Q4H PRN PRN Reason: FEVER Last Admin: 02/08/19 14:25 Dose: 650 mg Aspirin (Asa -) 81 mg PO DAILY [facility] Atorvastatin Calcium (Lipitor -) 40 mg PO HS [facility] Last Admin: 02/08/19 21:25 Dose: 40 mg Dexamethasone Sodium Phosphate (Decadron Injection -) 4 mg IVPUSH ONCE PRN PRN Reason: NAUSEA AND/OR VOMITING Diphenhydramine HCl (Benadryl Injection -) 12.5 mg IVPUSH ONCE PRN PRN Reason: FOR ITCHING Docusate Sodium (Colace -) 100 mg PO TID [facility] Last Admin: 02/09/19 05:52 Dose: 100 mg Doxycycline Hyclate (Vibramycin -) 100 mg PO BID@1000,1800 [facility] Last Admin: 02/08/19 17:29 Dose: 100 mg Piperacillin Sod/Tazobactam (Sod 3.375 gm/ Dextrose) 50 mls @ 100 mls/hr IVPB Q8H-IV [facility] Last Admin: 02/09/19 01:53 Dose: 100 mls/hr Insulin Aspart (Novolog Vial Sliding Scale -) 1 vial SQ ACHS [facility]; Protocol Last Admin: 02/09/19 06:48 Dose: 6 units Insulin Detemir (Levemir Vial) 15 units SQ BID@0700,2200 [facility] Last Admin: 02/09/19 06:49 Dose: 15 units Lisinopril (Prinivil) 10 mg PO DAILY [facility] Metoprolol Tartrate (Lopressor -) 25 mg PO BID [facility] Last Admin: 02/08/19 21:25 Dose: 25 mg Metoprolol Tartrate (Lopressor Injection -) 5 mg IVPB Q4H PRN PRN Reason: HYPERTENSION Ondansetron HCl (Zofran Injection) 4 mg IVPUSH Q4H PRN PRN Reason: NAUSEA AND/OR VOMITING Oxycodone HCl (Roxicodone -) 5 mg PO Q3H PRN PRN Reason: PAIN LEVEL 4 - 6 Oxycodone HCl (Roxicodone -) 10 mg PO Q3H PRN PRN Reason: PAIN LEVEL 7 - 10 Last Admin: 02/09/19 05:50 Dose: 10 mg Polyethylene Glycol (Miralax (For Daily Use) -) 17 gm PO BID [facility] Last Admin: 02/08/19 21:31 Dose: 17 gm [facility]aroxaban ([facility]arelto) [facility] [place] Admin: 02/09/19 07:48 Dose: 15 mg - Objective Vital Signs: Vital Signs Temperature 99.9 F H 02/09/19 06:26 Pulse Rate 105 H 02/09/19 06:26 Respiratory Rate 18 02/09/19 06:26 Blood Pressure 126/77 02/09/19 06:26 O2 Sat by Pulse Oximetry (%) 100 02/08/19 21:00 Constitutional: Yes: No Distress, Calm Cardiovascular: Yes: S1, S2 Respiratory: Yes: Regular, CTA Bilaterally Gastrointestinal: Yes: Normal Bowel Sounds, Soft Musculoskeletal: Yes: WNL Extremities: Yes: Other Neurological: Yes: Alert, Oriented Psychiatric: Yes: Alert, Oriented Labs: CBC, BMP 02/09/19 07:15 02/07/19 05:30 INR, PTT INR 1.34 (0.83-1.09) H 02/08/19 05:45 Fibrinogen 297.0 mg/dL (238-498) 02/02/19 08:50 Assessment/Plan Problem List - Problems (1) Arterial occlusion Code(s): I70.90 - UNSPECIFIED ATHEROSCLEROSIS (2) CAD (coronary artery disease) Code(s): I25.10 - ATHSCL HEART DISEASE OF [place] CORONARY ARTERY W/O ANG PCTRS (3) H/O heart artery stent Code(s): Z95.5 - PRESENCE OF CORONARY ANGIOPLASTY IMPLANT AND GRAFT (4) HLD (hyperlipidemia) Code(s): E78.5 - HYPERLIPIDEMIA, UNSPECIFIED (5) Hematuria Code(s): R31.9 - HEMATURIA, UNSPECIFIED (6) Obesity Code(s): E66.9 - OBESITY, UNSPECIFIED (7) PAD (peripheral artery disease) Code(s): I73.9 - PERIPHERAL VASCULAR DISEASE, UNSPECIFIED (8) Right leg pain Code(s): M79.604 - PAIN IN RIGHT LEG (9) Smokes cigarettes Code(s): F17.210 - NICOTINE DEPENDENCE, CIGARETTES, UNCOMPLICATED (10) Diabetes type 2, uncontrolled Code(s): E11.65 - TYPE 2 DIABETES MELLITUS WITH HYPERGLYCEMIA (11) Hypertension Code(s): I10 - ESSENTIAL (PRIMARY) HYPERTENSION Assessment/Plan 49 y.o. male with PMH of DVT, RLE arterial occlusion s/p TPA (has not been taking Xarelto due to lack of insurance coverage), obesity, CAD s/p stent, CHF, HTN, HLD, DM presented with c/o severe RLE pain x 1 wk and foot feeling cold. Noted to have Rt popliteal and tibial arterial occlusion and initially underwent thrombolysis but then subsequently had SFA angioplasty with stent and tibial artery angioplasty on 01/25/19. Pt noted to have increasing wbc count since yesterday and mild temp elevation to 99.3F. +recent hematuria Leukocytosis RLE popliteal and tibial artery occlusion s/p angioplasty/stent Hematuria Hx of RLE arterial occlusion s/p TPA CAD s/p stent CHF DM HTN HLD Obesity plan ischemic foot post op monitor wbc once stable wii decide
[2019-02-09] MEDS: LISINOPRIL 10 MG TABLET (FP) PO SCH (09:40)
[2019-02-09] MEDS: DOXYCYCLINE HYCLATE 100 MG CAPSULE PO SCH ×2 (09:40→17:12)
[2019-02-09] MEDS: METOPROLOL TARTRATE 25 MG TABLET (FP) PO SCH ×2 (09:40→21:37)
[2019-02-09] MEDS: ASPIRIN 81 MG CHEWABLE TABLETS PO SCH (09:40)
[2019-02-09] MEDS: POLYETHYLENE GLYCOL 3350 119 GM BTL PO SCH ×2 (09:41→21:37)
[2019-02-09 10:25] LABS: PLATELET COUNT 935 K/MM3 (134-434)
[2019-02-09] MEDS: ATORVASTATIN CA 40 MG TABLET (FP) PO SCH (21:36)
[2019-02-10] MEDS ORDERED: DEXTROSE 5%-WATER - 50 ML IVPB ONE ×3 (00:50→17:08)
[2019-02-10] MEDS ORDERED: PIPERACILLIN/TAZOBACTAM 3.375 GM VIAL IVPB ONE ×3 (00:50→17:08)
[2019-02-10] MEDS: PIPERACILLIN/TAZOB 3.375 GM 3.375 GM in DEXTROSE 5%-WATER - 50 ML IVPB SCH ×3 (01:07→17:12)
[2019-02-10] MEDS: DOCUSATE SODIUM 100 MG CAPSULE (FP) PO SCH ×3 (06:30→21:38)
[2019-02-10] MEDS: oxyCODONE HCL 5 MG TABLET PO PRN ×2 (06:31→19:31)
[2019-02-10] MEDS: INSULIN (LEVEMIR) 100 UNITS/ML UNITS SQ SCH ×2 (06:35→21:38)
[2019-02-10] MEDS: INSULIN SLIDING SCALE (NOVOLOG) 1 VIAL SQ SCH ×4 (06:35→21:36)
[2019-02-10 08:05] LABS: HEMATOCRIT 26.7 % (35.4-49); HEMOGLOBIN 8.9 GM/dL (11.7-16.9); MCH 25.7 pg (25.7-33.7); MCHC 33.1 g/dl (32.0-35.9); MEAN CELL VOLUME 77.7 fl (80-96); MEAN PLT VOLUME 6.7 fl (7.5-11.1); PLATELET COUNT 1054 K/MM3 (134-434); RBC 3.44 M/mm3 (4.00-5.60); RDW 14.5 % (11.9-15.9); WHITE BLOOD COUNT 14.4 K/mm3 (4.0-10.0)
[2019-02-10] MEDS ORDERED: PT OWN MED DRAWER 7, Y5N ONE ×5 (08:36→20:46)
[2019-02-10] MEDS: RIVAROXABAN 15 MG TABLET PO SCH ×2 (08:38→17:55)
[2019-02-10] MEDS: ASPIRIN 81 MG CHEWABLE TABLETS PO SCH (09:20)
[2019-02-10] MEDS: METOPROLOL TARTRATE 25 MG TABLET (FP) PO SCH ×2 (09:20→21:37)
[2019-02-10] MEDS: LISINOPRIL 10 MG TABLET (FP) PO SCH (09:20)
[2019-02-10] MEDS: DOXYCYCLINE HYCLATE 100 MG CAPSULE PO SCH ×2 (09:21→17:12)
[2019-02-10] MEDS: POLYETHYLENE GLYCOL 3350 119 GM BTL PO SCH ×2 (09:21→21:36)
--- NOTE | 2019-02-10 15:37 | PN ---
Progress Note, Physician History of Present Illness: Pt seen and examined. s/p Rt foot MT amputation POD #2. Has no specific complaints. - Current Medication List Current Medications: Active Medications Acetaminophen (Tylenol -) 650 mg PO Q4H PRN PRN Reason: FEVER Last Admin: 02/08/19 14:25 Dose: 650 mg Aspirin (Asa -) 81 mg PO DAILY [facility] Last Admin: 02/10/19 09:20 Dose: 81 mg Atorvastatin Calcium (Lipitor -) 40 mg PO HS [facility] Last Admin: 02/09/19 21:36 Dose: 40 mg Dexamethasone Sodium Phosphate (Decadron Injection -) 4 mg IVPUSH ONCE PRN PRN Reason: NAUSEA AND/OR VOMITING Diphenhydramine HCl (Benadryl Injection -) 12.5 mg IVPUSH ONCE PRN PRN Reason: FOR ITCHING Docusate Sodium (Colace -) 100 mg PO TID [facility] Last Admin: 02/10/19 13:17 Dose: 100 mg Doxycycline Hyclate (Vibramycin -) 100 mg PO BID@1000,1800 [facility] Last Admin: 02/10/19 09:21 Dose: 100 mg Piperacillin Sod/Tazobactam (Sod 3.375 gm/ Dextrose) 50 mls @ 100 mls/hr IVPB Q8H-IV [facility] Last Admin: 02/10/19 09:32 Dose: 100 mls/hr Vancomycin HCl 1,250 mg/ (Dextrose) 250 mls @ 166.667 mls/hr IVPB Q12H [facility]; Protocol Insulin Aspart (Novolog Vial Sliding Scale -) 1 vial SQ ACHS [facility]; Protocol Last Admin: 02/10/19 11:39 Dose: 8 units Insulin Detemir (Levemir Vial) 15 units SQ BID@0700,2200 [facility] Last Admin: 02/10/19 06:35 Dose: 15 units Lisinopril (Prinivil) 10 mg PO DAILY [facility] Last Admin: 02/10/19 09:20 Dose: 10 mg Metoprolol Tartrate (Lopressor -) 25 mg PO BID [facility] Last Admin: 02/10/19 09:20 Dose: 25 mg Metoprolol Tartrate (Lopressor Injection -) 5 mg IVPB Q4H PRN PRN Reason: HYPERTENSION Ondansetron HCl (Zofran Injection) 4 mg IVPUSH Q4H PRN PRN Reason: NAUSEA AND/OR VOMITING Oxycodone HCl (Roxicodone -) 5 mg PO Q3H PRN PRN Reason: PAIN LEVEL 4 - 6 Oxycodone HCl (Roxicodone -) 10 mg PO Q3H PRN PRN Reason: PAIN LEVEL 7 - 10 Last Admin: 02/10/19 06:31 Dose: 10 mg Polyethylene Glycol (Miralax (For Daily Use) -) 17 gm PO BID [facility] Last Admin: 02/10/19 09:21 Dose: Not Given Rivaroxaban (Xarelto) [facility] [place] [facility] [place] Last Admin: 02/10/19 08:38 Dose: 15 mg - Objective Vital Signs: Vital Signs Temperature 98.3 F 02/10/19 09:00 Pulse Rate 103 H 02/10/19 09:00 Respiratory Rate 20 02/10/19 09:00 Blood Pressure 117/71 02/10/19 09:00 O2 Sat by Pulse Oximetry (%) 98 02/10/19 09:00 Constitutional: Yes: No Distress, Calm Cardiovascular: Yes: Regular Rate and Rhythm Respiratory: Yes: Regular Gastrointestinal: Yes: Normal Bowel Sounds, Soft Genitourinary: Yes: WNL Extremities: Yes: Amputation (Rt foot MT) Wound/Incision: Yes: Dressing Dry and Intact Neurological: Yes: Alert, Oriented Labs: CBC, BMP 02/10/19 07:10 02/07/19 05:30 INR, PTT INR 1.34 (0.83-1.09) H 02/08/19 05:45 Fibrinogen 297.0 mg/dL (238-498) 02/02/19 08:50 Microbiology 02/08/19 09:59 Tissue-Other Gram Stain - Final 02/08/19 09:59 Tissue-Other Tissue Culture - Preliminary Proteus Mirabilis Presumptive Mrsa (Pbp2a Pos) Lactose Fermenting Neg Bacilli Non Lactose Fermenting Gnb 02/08/19 09:59 Tissue-Other Anaerobic Culture - Final NO ANAEROBES WERE ISOLATED 02/03/19 05:40 Urine - Urine Clean Catch Urine Culture - Final NO GROWTH OBTAINED 01/28/19 18:50 Blood - Peripheral Venous Blood Culture - Final NO GROWTH AFTER 5 DAYS INCUBATION 01/28/19 18:30 Blood - Peripheral Venous Blood Culture - Final NO GROWTH AFTER 5 DAYS INCUBATION Problem List - Problems (1) Arterial occlusion Code(s): I70.90 - UNSPECIFIED ATHEROSCLEROSIS (2) CAD (coronary artery disease) Code(s): I25.10 - ATHSCL HEART DISEASE OF [place] CORONARY ARTERY W/O ANG PCTRS (3) H/O heart artery stent Code(s): Z95.5 - PRESENCE OF CORONARY ANGIOPLASTY IMPLANT AND GRAFT (4) HLD (hyperlipidemia) Code(s): E78.5 - HYPERLIPIDEMIA, UNSPECIFIED (5) Hematuria Code(s): R31.9 - HEMATURIA, UNSPECIFIED (6) Obesity Code(s): E66.9 - OBESITY, UNSPECIFIED (7) PAD (peripheral artery disease) Code(s): I73.9 - PERIPHERAL VASCULAR DISEASE, UNSPECIFIED (8) Right leg pain Code(s): M79.604 - PAIN IN RIGHT LEG (9) Smokes cigarettes Code(s): F17.210 - NICOTINE DEPENDENCE, CIGARETTES, UNCOMPLICATED (10) Diabetes type 2, uncontrolled Code(s): E11.65 - TYPE 2 DIABETES MELLITUS WITH HYPERGLYCEMIA (11) Hypertension Code(s): I10 - ESSENTIAL (PRIMARY) HYPERTENSION Assessment/Plan Leukocytosis RLE popliteal and tibial artery occlusion s/p angioplasty/stent Rt foot ischemia s/p metatarsal amputation POD#2 Hx of RLE arterial occlusion s/p TPA CAD s/p stent CHF DM HTN HLD Obesity Wound culture results noted, follow up all isolates Continue Zosyn, will add Vancomycin Vancomycin Trough prior to 4th dose, monitor renal function Repeat cbc, monitor wbc trend Contine wound care
[2019-02-10] MEDS ORDERED: INSULIN (NOVOLOG) ASPART 100 UNITS/ML 10ML VIAL ONE (17:05)
[2019-02-10] MEDS: VANCOMYCIN 1,250 MG in DEXTROSE 5%-WATER - 250 ML IVPB SCH (17:55)
--- NOTE | 2019-02-10 21:30 | PN ---
Progress Note, Physician History of Present Illness: No new complaints - Current Medication List Current Medications: Active Medications Acetaminophen (Tylenol -) 650 mg PO Q4H PRN PRN Reason: FEVER Last Admin: 02/08/19 14:25 Dose: 650 mg Aspirin (Asa -) 81 mg PO DAILY [facility] Last Admin: 02/10/19 09:20 Dose: 81 mg Atorvastatin Calcium (Lipitor -) 40 mg PO HS [facility] Last Admin: 02/09/19 21:36 Dose: 40 mg Dexamethasone Sodium Phosphate (Decadron Injection -) 4 mg IVPUSH ONCE PRN PRN Reason: NAUSEA AND/OR VOMITING Diphenhydramine HCl (Benadryl Injection -) 12.5 mg IVPUSH ONCE PRN PRN Reason: FOR ITCHING Docusate Sodium (Colace -) 100 mg PO TID [facility] Last Admin: 02/10/19 13:17 Dose: 100 mg Doxycycline Hyclate (Vibramycin -) 100 mg PO BID@1000,1800 [facility] Last Admin: 02/10/19 17:12 Dose: 100 mg Piperacillin Sod/Tazobactam (Sod 3.375 gm/ Dextrose) 50 mls @ 100 mls/hr IVPB Q8H-IV [facility] Last Admin: 02/10/19 17:12 Dose: 100 mls/hr Vancomycin HCl 1,250 mg/ (Dextrose) 250 mls @ 166.667 mls/hr IVPB Q12H [facility]; Protocol Last Admin: 02/10/19 17:55 Dose: 166.667 mls/hr Insulin Aspart (Novolog Vial Sliding Scale -) 1 vial SQ ACHS [facility]; Protocol Last Admin: 02/10/19 17:01 Dose: 8 units Insulin Detemir (Levemir Vial) 15 units SQ BID@0700,2200 [facility] Last Admin: 02/10/19 06:35 Dose: 15 units Lisinopril (Prinivil) 10 mg PO DAILY [facility] Last Admin: 02/10/19 09:20 Dose: 10 mg Metoprolol Tartrate (Lopressor -) 25 mg PO BID [facility] Last Admin: 02/10/19 09:20 Dose: 25 mg Metoprolol Tartrate (Lopressor Injection -) 5 mg IVPB Q4H PRN PRN Reason: HYPERTENSION Ondansetron HCl (Zofran Injection) 4 mg IVPUSH Q4H PRN PRN Reason: NAUSEA AND/OR VOMITING Oxycodone HCl (Roxicodone -) 5 mg PO Q3H PRN PRN Reason: PAIN LEVEL 4 - 6 Oxycodone HCl (Roxicodone -) 10 mg PO Q3H PRN PRN Reason: PAIN LEVEL 7 - 10 Last Admin: 02/10/19 19:31 Dose: 10 mg Polyethylene Glycol (Miralax (For Daily Use) -) 17 gm PO BID [facility] Last Admin: 02/10/19 09:21 Dose: Not Given Rivaroxaban ([facility]arelto) [facility] [place] Last Admin: 02/10/19 17:55 Dose: 15 mg - Objective Vital Signs: Vital Signs Temperature 98.8 F 02/10/19 16:53 Pulse Rate 104 H 02/10/19 16:53 Respiratory Rate 18 02/10/19 16:53 Blood Pressure 120/70 02/10/19 16:53 O2 Sat by Pulse Oximetry (%) 98 02/10/19 09:00 HENT: Yes: WNL Neck: Yes: WNL, Supple Cardiovascular: Yes: WNL, Regular Rate and Rhythm Respiratory: Yes: WNL, Regular, CTA Bilaterally Gastrointestinal: Yes: WNL, Normal Bowel Sounds, Soft, Abdomen, Obese Extremities: Yes: Other (Partial Rt foot amputation) Labs: CBC, BMP 02/10/19 07:10 02/07/19 05:30 INR, PTT INR 1.34 (0.83-1.09) H 02/08/19 05:45 Fibrinogen 297.0 mg/dL (238-498) 02/02/19 08:50 Problem List - Problems (1) Diabetic foot ulcer Assessment/Plan: S/P Rt foot MT amputation Cont IV antibxs ID consult noted Code(s): E11.621 - TYPE 2 DIABETES MELLITUS WITH FOOT ULCER; L97.509 - NON- PRESSURE CHRONIC ULCER OTH PRT UNSP FOOT W UNSP SEVERITY (2) Diabetes type 2, uncontrolled Assessment/Plan: Cont sliding scale w/ coverage Code(s): E11.65 - TYPE 2 DIABETES MELLITUS WITH HYPERGLYCEMIA (3) Hypertension Assessment/Plan: BP stable Cont metoprolol Code(s): I10 - ESSENTIAL (PRIMARY) HYPERTENSION (4) CAD (coronary artery disease) Assessment/Plan: Cont asa Code(s): I25.10 - ATHSCL HEART DISEASE OF [place] CORONARY ARTERY W/O ANG PCTRS (5) HLD (hyperlipidemia) Assessment/Plan: Cont lipitor Code(s): E78.5 - HYPERLIPIDEMIA, UNSPECIFIED (6) PAD (peripheral artery disease) Assessment/Plan: S/p angioplasty and stent placement Cont xarelto Code(s): I73.9 - PERIPHERAL VASCULAR DISEASE, UNSPECIFIED
[2019-02-10] MEDS: ATORVASTATIN CA 40 MG TABLET (FP) PO SCH (21:37)
[2019-02-11] MEDS ORDERED: DEXTROSE 5%-WATER - 50 ML IVPB ONE ×3 (01:08→17:07)
[2019-02-11] MEDS ORDERED: PIPERACILLIN/TAZOBACTAM 3.375 GM VIAL IVPB ONE ×3 (01:08→17:07)
[2019-02-11] MEDS: oxyCODONE HCL 5 MG TABLET PO PRN (01:19)
[2019-02-11] MEDS: PIPERACILLIN/TAZOB 3.375 GM 3.375 GM in DEXTROSE 5%-WATER - 50 ML IVPB SCH ×3 (01:19→17:40)
[2019-02-11] MEDS ORDERED: PT OWN MED DRAWER 7, Y5N ONE ×3 (04:34→17:08)
[2019-02-11] MEDS: VANCOMYCIN 1,250 MG in DEXTROSE 5%-WATER - 250 ML IVPB SCH ×2 (04:44→15:40)
[2019-02-11] MEDS: DOCUSATE SODIUM 100 MG CAPSULE (FP) PO SCH ×3 (06:37→21:46)
[2019-02-11] MEDS: INSULIN SLIDING SCALE (NOVOLOG) 1 VIAL SQ SCH ×4 (06:43→21:48)
[2019-02-11] MEDS: INSULIN (LEVEMIR) 100 UNITS/ML UNITS SQ SCH ×2 (06:43→21:46)
[2019-02-11 07:57] LABS: HEMATOCRIT 26.5 % (35.4-49); HEMOGLOBIN 8.7 GM/dL (11.7-16.9); MCH 25.5 pg (25.7-33.7); MCHC 32.9 g/dl (32.0-35.9); MEAN CELL VOLUME 77.7 fl (80-96); MEAN PLT VOLUME 6.3 fl (7.5-11.1); PLATELET COUNT 1067 K/MM3 (134-434); RBC 3.41 M/mm3 (4.00-5.60); RDW 14.2 % (11.9-15.9); WHITE BLOOD COUNT 12.8 K/mm3 (4.0-10.0)
[2019-02-11 08:22] LABS: ALBUMIN 2.1 g/dl (3.4-5.0); BILIRUBIN,TOTAL 0.3 mg/dL (0.2-1); BLOOD UREA NITROGEN 18.2 mg/dL (7-18); CALCIUM 8.8 mg/dL (8.5-10.1); CREATININE 1.1 mg/dL (0.55-1.3); POTASSIUM 4.1 mmol/L (3.5-5.1); TOT PROT 7.5 g/dl (6.4-8.2)
[2019-02-11] MEDS: DOXYCYCLINE HYCLATE 100 MG CAPSULE PO SCH ×2 (09:40→17:40)
[2019-02-11] MEDS: LISINOPRIL 10 MG TABLET (FP) PO SCH (09:40)
[2019-02-11] MEDS: ASPIRIN 81 MG CHEWABLE TABLETS PO SCH (09:40)
[2019-02-11] MEDS: METOPROLOL TARTRATE 25 MG TABLET (FP) PO SCH ×2 (09:40→21:48)
[2019-02-11] MEDS: POLYETHYLENE GLYCOL 3350 119 GM BTL PO SCH ×2 (09:41→21:48)
[2019-02-11] MEDS: RIVAROXABAN 15 MG TABLET PO SCH ×2 (09:41→17:40)
--- NOTE | 2019-02-11 13:00 | PN ---
Progress Note, Physician History of Present Illness: Pt remains afebrile, alert, without new complaints. Tolerating antibiotics. c/o RLE pain at times, improved with pain medication. - Current Medication List Current Medications: Active Medications Acetaminophen (Tylenol -) 650 mg PO Q4H PRN PRN Reason: FEVER Last Admin: 02/08/19 14:25 Dose: 650 mg Aspirin (Asa -) 81 mg PO DAILY [facility] Last Admin: 02/11/19 09:40 Dose: 81 mg Atorvastatin Calcium (Lipitor -) 40 mg PO HS [facility] Last Admin: 02/10/19 21:37 Dose: 40 mg Dexamethasone Sodium Phosphate (Decadron Injection -) 4 mg IVPUSH ONCE PRN PRN Reason: NAUSEA AND/OR VOMITING Diphenhydramine HCl (Benadryl Injection -) 12.5 mg IVPUSH ONCE PRN PRN Reason: FOR ITCHING Docusate Sodium (Colace -) 100 mg PO TID [facility] Last Admin: 02/11/19 06:37 Dose: Not Given Doxycycline Hyclate (Vibramycin -) 100 mg PO BID@1000,1800 [facility] Last Admin: 02/11/19 09:40 Dose: 100 mg Piperacillin Sod/Tazobactam (Sod 3.375 gm/ Dextrose) 50 mls @ 100 mls/hr IVPB Q8H-IV [facility] Last Admin: 02/11/19 09:40 Dose: 100 mls/hr Vancomycin HCl 1,250 mg/ (Dextrose) 250 mls @ 166.667 mls/hr IVPB Q12H [facility]; Protocol Last Admin: 02/11/19 04:44 Dose: 166.667 mls/hr Insulin Aspart (Novolog Vial Sliding Scale -) 1 vial SQ ACHS [facility]; Protocol Last Admin: 02/11/19 11:23 Dose: 6 units Insulin Detemir (Levemir Vial) 15 units SQ BID@0700,2200 [facility] Last Admin: 02/11/19 06:43 Dose: 15 units Lisinopril (Prinivil) 10 mg PO DAILY [facility] Last Admin: 02/11/19 09:40 Dose: 10 mg Metoprolol Tartrate (Lopressor -) 25 mg PO BID [facility] Last Admin: 02/11/19 09:40 Dose: 25 mg Metoprolol Tartrate (Lopressor Injection -) 5 mg IVPB Q4H PRN PRN Reason: HYPERTENSION Ondansetron HCl (Zofran Injection) 4 mg IVPUSH Q4H PRN PRN Reason: NAUSEA AND/OR VOMITING Oxycodone HCl (Roxicodone -) 5 mg PO Q3H PRN PRN Reason: PAIN LEVEL 4 - 6 Oxycodone HCl (Roxicodone -) 10 mg PO Q3H PRN PRN Reason: PAIN LEVEL 7 - 10 Last Admin: 02/11/19 01:19 Dose: 10 mg Polyethylene Glycol (Miralax (For Daily Use) -) 17 gm PO BID [facility] Last Admin: 02/11/19 09:41 Dose: Not Given Rivaroxaban (Xarelto) 15 mg PO BIDWM [facility] Last Admin: 02/11/19 09:41 Dose: 15 mg - Objective Vital Signs: Vital Signs Temperature 98.4 F 02/11/19 09:39 Pulse Rate 100 H 02/11/19 09:39 Respiratory Rate 18 02/11/19 09:39 Blood Pressure 108/63 02/11/19 09:39 O2 Sat by Pulse Oximetry (%) 98 02/10/19 09:00 Constitutional: Yes: No Distress, Calm Cardiovascular: Yes: Regular Rate and Rhythm Respiratory: Yes: Regular Gastrointestinal: Yes: Normal Bowel Sounds, Soft Genitourinary: Yes: WNL Extremities: Yes: Amputation (RT MT amp, less RLE edema) Integumentary: Yes: WNL Wound/Incision: Yes: Dressing Dry and Intact Neurological: Yes: Alert, Oriented Labs: CBC, BMP 02/11/19 07:42 02/11/19 07:42 INR, PTT INR 1.34 (0.83-1.09) H 02/08/19 05:45 Fibrinogen 297.0 mg/dL (238-498) 02/02/19 08:50 Microbiology 02/08/19 09:59 Tissue-Other Gram Stain - Final 02/08/19 09:59 Tissue-Other Tissue Culture - Preliminary Proteus Mirabilis Mr S Aureus Escherichia Coli Non Lactose Fermenting Gnb Non Lactose Fermenting Gnb#2 02/08/19 09:59 Tissue-Other Anaerobic Culture - Final NO ANAEROBES WERE ISOLATED 02/03/19 05:40 Urine - Urine Clean Catch Urine Culture - Final NO GROWTH OBTAINED 01/28/19 18:50 Blood - Peripheral Venous Blood Culture - Final NO GROWTH AFTER 5 DAYS INCUBATION 01/28/19 18:30 Blood - Peripheral Venous Blood Culture - Final NO GROWTH AFTER 5 DAYS INCUBATION Problem List - Problems (1) Arterial occlusion Code(s): I70.90 - UNSPECIFIED ATHEROSCLEROSIS (2) CAD (coronary artery disease) Code(s): I25.10 - ATHSCL HEART DISEASE OF [place] CORONARY ARTERY W/O ANG PCTRS (3) H/O heart artery stent Code(s): Z95.5 - PRESENCE OF CORONARY ANGIOPLASTY IMPLANT AND GRAFT (4) HLD (hyperlipidemia) Code(s): E78.5 - HYPERLIPIDEMIA, UNSPECIFIED (5) Hematuria Code(s): R31.9 - HEMATURIA, UNSPECIFIED (6) Obesity Code(s): E66.9 - OBESITY, UNSPECIFIED (7) PAD (peripheral artery disease) Code(s): I73.9 - PERIPHERAL VASCULAR DISEASE, UNSPECIFIED (8) Right leg pain Code(s): M79.604 - PAIN IN RIGHT LEG (9) Smokes cigarettes Code(s): F17.210 - NICOTINE DEPENDENCE, CIGARETTES, UNCOMPLICATED (10) Diabetes type 2, uncontrolled Code(s): E11.65 - TYPE 2 DIABETES MELLITUS WITH HYPERGLYCEMIA (11) Hypertension Code(s): I10 - ESSENTIAL (PRIMARY) HYPERTENSION Assessment/Plan Leukocytosis RLE popliteal and tibial artery occlusion s/p angioplasty/stent Rt foot ischemia s/p metatarsal amputation POD#3 Hx of RLE arterial occlusion s/p TPA CAD s/p stent CHF DM HTN HLD Obesity -- continue Zosyn, Vancomycin added due to MRSA isolate in wound culture in addition to other organisms -- repeat cbc, bmp -- wbc trending down, pt afebrile -- Vancomycin trough ordered for tomorrow, adjust if necessary, monitor renal function -- continue wound care Pt currently stable
[2019-02-11] MEDS ORDERED: oxyCODONE HCL 5 MG TABLET PO PRN (20:56)
[2019-02-11] MEDS: ATORVASTATIN CA 40 MG TABLET (FP) PO SCH (21:48)
--- NOTE | 2019-02-11 23:44 | PN ---
Progress Note, Physician History of Present Illness: No new complaints - Current Medication List Current Medications: Active Medications Acetaminophen (Tylenol -) 650 mg PO Q4H PRN PRN Reason: FEVER Last Admin: 02/08/19 14:25 Dose: 650 mg Aspirin (Asa -) 81 mg PO DAILY [facility] Last Admin: 02/11/19 09:40 Dose: 81 mg Atorvastatin Calcium (Lipitor -) 40 mg PO HS [facility] Last Admin: 02/11/19 21:48 Dose: 40 mg Dexamethasone Sodium Phosphate (Decadron Injection -) 4 mg IVPUSH ONCE PRN PRN Reason: NAUSEA AND/OR VOMITING Diphenhydramine HCl (Benadryl Injection -) 12.5 mg IVPUSH ONCE PRN PRN Reason: FOR ITCHING Docusate Sodium (Colace -) 100 mg PO TID [facility] Last Admin: 02/11/19 21:46 Dose: Not Given Doxycycline Hyclate (Vibramycin -) 100 mg PO BID@1000,1800 [facility] Last Admin: 02/11/19 17:40 Dose: 100 mg Piperacillin Sod/Tazobactam (Sod 3.375 gm/ Dextrose) 50 mls @ 100 mls/hr IVPB Q8H-IV [facility] Last Admin: 02/11/19 17:40 Dose: 100 mls/hr Vancomycin HCl 1,250 mg/ (Dextrose) 250 mls @ 166.667 mls/hr IVPB Q12H [facility]; Protocol Last Admin: 02/11/19 15:40 Dose: 166.667 mls/hr Insulin Aspart (Novolog Vial Sliding Scale -) 1 vial SQ ACHS [facility]; Protocol Last Admin: 02/11/19 21:48 Dose: 8 units Insulin Detemir (Levemir Vial) 15 units SQ BID@0700,2200 [facility] Last Admin: 02/11/19 21:46 Dose: 15 units Lisinopril (Prinivil) 10 mg PO DAILY [facility] Last Admin: 02/11/19 09:40 Dose: 10 mg Metoprolol Tartrate (Lopressor -) 25 mg PO BID [facility] Last Admin: 02/11/19 21:48 Dose: 25 mg Metoprolol Tartrate (Lopressor Injection -) 5 mg IVPB Q4H PRN PRN Reason: HYPERTENSION Ondansetron HCl (Zofran Injection) 4 mg IVPUSH Q4H PRN PRN Reason: NAUSEA AND/OR VOMITING Oxycodone HCl (Roxicodone -) 5 mg PO Q8H PRN PRN Reason: pain level 4-10 4e Last Admin: 02/11/19 21:48 Dose: 5 mg Polyethylene Glycol (Miralax (For Daily Use) -) 17 gm PO BID [facility] Last Admin: 02/11/19 21:48 Dose: Not Given [facility]) [facility] Last Admin: 02/11/19 17:40 Dose: 15 mg - Objective Vital Signs: Vital Signs Temperature 98.1 F 02/11/19 20:50 Pulse Rate 102 H 02/11/19 20:50 Respiratory Rate 20 02/11/19 20:50 Blood Pressure 122/77 02/11/19 20:50 O2 Sat by Pulse Oximetry (%) 98 02/10/19 09:00 Constitutional: Yes: Well Nourished Neck: Yes: WNL, Supple Cardiovascular: Yes: WNL, Regular Rate and Rhythm Respiratory: Yes: WNL, Regular, CTA Bilaterally Gastrointestinal: Yes: WNL, Normal Bowel Sounds, Soft Extremities: Yes: Other (Rt MTC amputation) Edema: No Labs: CBC, BMP 02/11/19 07:42 02/11/19 07:42 INR, PTT INR 1.34 (0.83-1.09) H 02/08/19 05:45 Fibrinogen 297.0 mg/dL (238-498) 02/02/19 08:50 Problem List - Problems (1) Diabetic foot ulcer Assessment/Plan: Gangrene S/P Rt foot MT amputation Cont IV antibxs ID consult noted Code(s): E11.621 - TYPE 2 DIABETES MELLITUS WITH FOOT ULCER; L97.509 - NON- PRESSURE CHRONIC ULCER OTH PRT UNSP FOOT W UNSP SEVERITY (2) Diabetes type 2, uncontrolled Assessment/Plan: Cont sliding scale w/ coverage Code(s): E11.65 - TYPE 2 DIABETES MELLITUS WITH HYPERGLYCEMIA (3) Hypertension Assessment/Plan: BP stable Cont metoprolol Code(s): I10 - ESSENTIAL (PRIMARY) HYPERTENSION (4) CAD (coronary artery disease) Assessment/Plan: Cont asa Code(s): I25.10 - ATHSCL HEART DISEASE OF [place] CORONARY ARTERY W/O ANG PCTRS (5) HLD (hyperlipidemia) Assessment/Plan: Cont lipitor Code(s): E78.5 - HYPERLIPIDEMIA, UNSPECIFIED (6) PAD (peripheral artery disease) Assessment/Plan: S/p angioplasty and stent placement Cont xarelto Code(s): I73.9 - PERIPHERAL VASCULAR DISEASE, UNSPECIFIED
[2019-02-12] MEDS ORDERED: PIPERACILLIN/TAZOBACTAM 3.375 GM VIAL IVPB ONE ×3 (01:03→17:04)
[2019-02-12] MEDS ORDERED: DEXTROSE 5%-WATER - 50 ML IVPB ONE ×3 (01:03→17:04)
[2019-02-12] MEDS: PIPERACILLIN/TAZOB 3.375 GM 3.375 GM in DEXTROSE 5%-WATER - 50 ML IVPB SCH ×3 (01:25→17:10)
[2019-02-12] MEDS ORDERED: PT OWN MED DRAWER 7, Y5N ONE ×3 (04:32→17:08)
[2019-02-12] MEDS: VANCOMYCIN 1,250 MG in DEXTROSE 5%-WATER - 250 ML IVPB SCH ×2 (04:43→16:05)
[2019-02-12] MEDS: DOCUSATE SODIUM 100 MG CAPSULE (FP) PO SCH ×3 (06:31→21:42)
[2019-02-12] MEDS: INSULIN (LEVEMIR) 100 UNITS/ML UNITS SQ SCH ×2 (06:40→21:48)
[2019-02-12] MEDS: INSULIN SLIDING SCALE (NOVOLOG) 1 VIAL SQ SCH ×4 (06:41→21:49)
[2019-02-12 07:51] LABS: BASO % 0.9 % (0-2.0); EOS % 3.2 % (0-4.5); HEMATOCRIT 26.4 % (35.4-49); HEMOGLOBIN 8.7 GM/dL (11.7-16.9); LYMPH % 21.6 % (8-40); MCH 25.6 pg (25.7-33.7); MCHC 32.8 g/dl (32.0-35.9); MEAN CELL VOLUME 77.9 fl (80-96); MEAN PLT VOLUME 6.8 fl (7.5-11.1); MONO % 9.2 % (3.8-10.2); NEUT % 65.1 % (42.8-82.8); PLATELET COUNT 1084 K/MM3 (134-434); RBC 3.39 M/mm3 (4.00-5.60); RDW 14.4 % (11.9-15.9); WHITE BLOOD COUNT 13.1 K/mm3 (4.0-10.0)
[2019-02-12 07:58] LABS: ALBUMIN 2.1 g/dl (3.4-5.0); BILIRUBIN,TOTAL 0.4 mg/dL (0.2-1); BLOOD UREA NITROGEN 14.9 mg/dL (7-18); CALCIUM 9.1 mg/dL (8.5-10.1); CREATININE 1.1 mg/dL (0.55-1.3); POTASSIUM 5.1 mmol/L (3.5-5.1); TOT PROT 7.3 g/dl (6.4-8.2)
[2019-02-12] MEDS: LISINOPRIL 10 MG TABLET (FP) PO SCH (09:42)
[2019-02-12] MEDS: METOPROLOL TARTRATE 25 MG TABLET (FP) PO SCH ×2 (09:42→21:49)
[2019-02-12] MEDS: ASPIRIN 81 MG CHEWABLE TABLETS PO SCH (09:42)
[2019-02-12] MEDS: DOXYCYCLINE HYCLATE 100 MG CAPSULE PO SCH ×2 (09:42→17:11)
[2019-02-12] MEDS: RIVAROXABAN 15 MG TABLET PO SCH ×2 (09:43→17:11)
[2019-02-12] MEDS: POLYETHYLENE GLYCOL 3350 119 GM BTL PO SCH ×2 (09:50→21:44)
--- NOTE | 2019-02-12 17:40 | PN ---
Progress Note, Physician History of Present Illness: Pt with less RLE pain. Intermittent mild temp elevations. Has no new complaints. - Current Medication List Current Medications: Active Medications Acetaminophen (Tylenol -) 650 mg PO Q4H PRN PRN Reason: FEVER Last Admin: 02/08/19 14:25 Dose: 650 mg Aspirin (Asa -) 81 mg PO DAILY [facility] Last Admin: 02/12/19 09:42 Dose: 81 mg Atorvastatin Calcium (Lipitor -) 40 mg PO HS [facility] Last Admin: 02/11/19 21:48 Dose: 40 mg Dexamethasone Sodium Phosphate (Decadron Injection -) 4 mg IVPUSH ONCE PRN PRN Reason: NAUSEA AND/OR VOMITING Diphenhydramine HCl (Benadryl Injection -) 12.5 mg IVPUSH ONCE PRN PRN Reason: FOR ITCHING Docusate Sodium (Colace -) 100 mg PO TID [facility] Last Admin: 02/12/19 14:13 Dose: 100 mg Doxycycline Hyclate (Vibramycin -) 100 mg PO BID@1000,1800 [facility] Last Admin: 02/12/19 17:11 Dose: 100 mg Piperacillin Sod/Tazobactam (Sod 3.375 gm/ Dextrose) 50 mls @ 100 mls/hr IVPB Q8H-IV [facility] Last Admin: 02/12/19 17:10 Dose: 100 mls/hr Vancomycin HCl 1,250 mg/ (Dextrose) 250 mls @ 166.667 mls/hr IVPB Q12H [facility]; Protocol Last Admin: 02/12/19 16:05 Dose: 166.667 mls/hr Insulin Aspart (Novolog Vial Sliding Scale -) 1 vial SQ ACHS [facility]; Protocol Last Admin: 02/12/19 17:17 Dose: 8 units Insulin Detemir (Levemir Vial) 15 units SQ BID@0700,2200 [facility] Last Admin: 02/12/19 06:40 Dose: 15 units Lisinopril (Prinivil) 10 mg PO DAILY [facility] Last Admin: 02/12/19 09:42 Dose: 10 mg Metoprolol Tartrate (Lopressor -) 25 mg PO BID [facility] Last Admin: 02/12/19 09:42 Dose: 25 mg Metoprolol Tartrate (Lopressor Injection -) 5 mg IVPB Q4H PRN PRN Reason: HYPERTENSION Ondansetron HCl (Zofran Injection) 4 mg IVPUSH Q4H PRN PRN Reason: NAUSEA AND/OR VOMITING Oxycodone HCl (Roxicodone -) 5 mg PO Q8H PRN PRN Reason: pain level 4-10 4e Last Admin: 02/11/19 21:48 Dose: 5 mg Polyethylene Glycol (Miralax (For Daily Use) -) 17 gm PO BID [facility] Last Admin: 02/12/19 09:50 Dose: 17 gm [facility]) [facility] Last Admin: 02/12/19 17:11 Dose: 15 mg - Objective Vital Signs: Vital Signs Temperature 99.4 F 02/12/19 14:00 Pulse Rate 96 H 02/12/19 14:00 Respiratory Rate 20 02/12/19 14:00 Blood Pressure 130/65 02/12/19 14:00 O2 Sat by Pulse Oximetry (%) 98 02/10/19 09:00 Constitutional: Yes: No Distress, Calm Cardiovascular: Yes: Regular Rate and Rhythm Respiratory: Yes: Regular Gastrointestinal: Yes: Normal Bowel Sounds, Soft Extremities: Yes: Amputation Wound/Incision: Yes: Other (RT foot dressing intact, less edema) Additional Findings/Remarks: Laboratory Results - last 24 hr 02/11/19 02/11/19 02/12/19 17:38 20:38 06:30 WBC RBC Hgb Hct MCV MCH MCHC RDW Plt Count MPV Absolute Neuts (auto) Neutrophils % Lymphocytes % Monocytes % Eosinophils % Basophils % Nucleated RBC % PTT (Actin FS) 37.7 H Sodium Potassium Chloride Carbon Dioxide Anion Gap BUN Creatinine Est GFR (CKD-EPI)AfAm Est GFR (CKD-EPI)NonAf POC Glucometer 265 215 Random Glucose Calcium Total Bilirubin AST ALT Alkaline Phosphatase Total Protein Albumin Vancomycin Pre-Dose 02/12/19 02/12/19 02/12/19 06:30 06:30 06:32 WBC 13.1 H RBC 3.39 L Hgb 8.7 L Hct 26.4 L MCV 77.9 L MCH 25.6 L MCHC 32.8 RDW 14.4 Plt Count 1084 H MPV 6.8 L Absolute Neuts (auto) 8.5 H Neutrophils % 65.1 Lymphocytes % 21.6 Monocytes % 9.2 Eosinophils % 3.2 Basophils % 0.9 Nucleated RBC % 0 PTT (Actin FS) Sodium 134 L Potassium 5.1 Chloride 100 Carbon Dioxide 28 Anion Gap 6 L BUN 14.9 Creatinine 1.1 Est GFR (CKD-EPI)AfAm 91.52 Est GFR (CKD-EPI)NonAf 78.96 POC Glucometer 166 Random Glucose 174 H Calcium 9.1 Total Bilirubin 0.4 AST 19 ALT 26 Alkaline Phosphatase 76 Total Protein 7.3 Albumin 2.1 L Vancomycin Pre-Dose 02/12/19 02/12/19 02/12/19 12:14 13:55 17:16 WBC RBC Hgb Hct MCV MCH MCHC RDW Plt Count MPV Absolute Neuts (auto) Neutrophils % Lymphocytes % Monocytes % Eosinophils % Basophils % Nucleated RBC % PTT (Actin FS) Sodium Potassium Chloride Carbon Dioxide Anion Gap BUN Creatinine Est GFR (CKD-EPI)AfAm Est GFR (CKD-EPI)NonAf POC Glucometer 178 236 Random Glucose Calcium Total Bilirubin AST ALT Alkaline Phosphatase Total Protein Albumin Vancomycin Pre-Dose 15.2 L Labs: CBC, BMP 02/12/19 06:30 02/12/19 06:30 INR, PTT INR 1.34 (0.83-1.09) H 02/08/19 05:45 Fibrinogen 297.0 mg/dL (238-498) 02/02/19 08:50 Vancomycin trough - 15 Microbiology 02/08/19 09:59 Tissue-Other Gram Stain - Final 02/08/19 09:59 Tissue-Other Tissue Culture - Preliminary Proteus Mirabilis Mr S Aureus Escherichia Coli Citrobacter Amalonaticus Lactose Fermenting Neg Bacilli 02/08/19 09:59 Tissue-Other Anaerobic Culture - Final NO ANAEROBES WERE ISOLATED 02/03/19 05:40 Urine - Urine Clean Catch Urine Culture - Final NO GROWTH OBTAINED 01/28/19 18:50 Blood - Peripheral Venous Blood Culture - Final NO GROWTH AFTER 5 DAYS INCUBATION 01/28/19 18:30 Blood - Peripheral Venous Blood Culture - Final NO GROWTH AFTER 5 DAYS INCUBATION Problem List - Problems (1) CAD (coronary artery disease) Code(s): I25.10 - ATHSCL HEART DISEASE OF [place] CORONARY ARTERY W/O ANG PCTRS (2) H/O heart artery stent Code(s): Z95.5 - PRESENCE OF CORONARY ANGIOPLASTY IMPLANT AND GRAFT (3) HLD (hyperlipidemia) Code(s): E78.5 - HYPERLIPIDEMIA, UNSPECIFIED (4) Hematuria Code(s): R31.9 - HEMATURIA, UNSPECIFIED (5) Obesity Code(s): E66.9 - OBESITY, UNSPECIFIED (6) PAD (peripheral artery disease) Code(s): I73.9 - PERIPHERAL VASCULAR DISEASE, UNSPECIFIED (7) Right leg pain Code(s): M79.604 - PAIN IN RIGHT LEG (8) Smokes cigarettes Code(s): F17.210 - NICOTINE DEPENDENCE, CIGARETTES, UNCOMPLICATED (9) Diabetes type 2, uncontrolled Code(s): E11.65 - TYPE 2 DIABETES MELLITUS WITH HYPERGLYCEMIA (10) Hypertension Code(s): I10 - ESSENTIAL (PRIMARY) HYPERTENSION Assessment/Plan Leukocytosis RLE popliteal and tibial artery occlusion s/p angioplasty/stent Rt foot ischemia s/p metatarsal amputation POD#3 Hx of RLE arterial occlusion s/p TPA CAD s/p stent CHF DM HTN HLD Obesity -- continue Zosyn and Vancomycin (trough level noted), monitor renal function -- continue monitor wbc/temps -- pt currently afebrile, wbc still minimally elevated
--- NOTE | 2019-02-12 20:10 | PN ---
Progress Note, Physician History of Present Illness: No new complaints - Current Medication List Current Medications: Active Medications Acetaminophen (Tylenol -) 650 mg PO Q4H PRN PRN Reason: FEVER Last Admin: 02/08/19 14:25 Dose: 650 mg Aspirin (Asa -) 81 mg PO DAILY [facility] Last Admin: 02/12/19 09:42 Dose: 81 mg Atorvastatin Calcium (Lipitor -) 40 mg PO HS [facility] Last Admin: 02/11/19 21:48 Dose: 40 mg Dexamethasone Sodium Phosphate (Decadron Injection -) 4 mg IVPUSH ONCE PRN PRN Reason: NAUSEA AND/OR VOMITING Diphenhydramine HCl (Benadryl Injection -) 12.5 mg IVPUSH ONCE PRN PRN Reason: FOR ITCHING Docusate Sodium (Colace -) 100 mg PO TID [facility] Last Admin: 02/12/19 14:13 Dose: 100 mg Doxycycline Hyclate (Vibramycin -) 100 mg PO BID@1000,1800 [facility] Last Admin: 02/12/19 17:11 Dose: 100 mg Piperacillin Sod/Tazobactam (Sod 3.375 gm/ Dextrose) 50 mls @ 100 mls/hr IVPB Q8H-IV [facility] Last Admin: 02/12/19 17:10 Dose: 100 mls/hr Vancomycin HCl 1,250 mg/ (Dextrose) 250 mls @ 166.667 mls/hr IVPB Q12H [facility]; Protocol Last Admin: 02/12/19 16:05 Dose: 166.667 mls/hr Insulin Aspart (Novolog Vial Sliding Scale -) 1 vial SQ ACHS [facility]; Protocol Last Admin: 02/12/19 17:17 Dose: 8 units Insulin Detemir (Levemir Vial) 15 units SQ BID@0700,2200 [facility] Last Admin: 02/12/19 06:40 Dose: 15 units Lisinopril (Prinivil) 10 mg PO DAILY [facility] Last Admin: 02/12/19 09:42 Dose: 10 mg Metoprolol Tartrate (Lopressor -) 25 mg PO BID [facility] Last Admin: 02/12/19 09:42 Dose: 25 mg Metoprolol Tartrate (Lopressor Injection -) 5 mg IVPB Q4H PRN PRN Reason: HYPERTENSION Ondansetron HCl (Zofran Injection) 4 mg IVPUSH Q4H PRN PRN Reason: NAUSEA AND/OR VOMITING Oxycodone HCl (Roxicodone -) 5 mg PO Q8H PRN PRN Reason: pain level 4-10 4e Last Admin: 02/11/19 21:48 Dose: 5 mg Polyethylene Glycol (Miralax (For Daily Use) -) 17 gm PO BID [facility] Last Admin: 02/12/19 09:50 Dose: 17 gm [facility]) [facility] Last Admin: 02/12/19 17:11 Dose: 15 mg - Objective Vital Signs: Vital Signs Temperature 97.2 F L 02/12/19 17:42 Pulse Rate 100 H 02/12/19 17:42 Respiratory Rate 18 02/12/19 17:42 Blood Pressure 130/65 02/12/19 17:42 O2 Sat by Pulse Oximetry (%) 98 02/10/19 09:00 Constitutional: Yes: Well Nourished Neck: Yes: WNL, Supple Cardiovascular: Yes: WNL, Regular Rate and Rhythm Respiratory: Yes: WNL, Regular, CTA Bilaterally Gastrointestinal: Yes: WNL, Normal Bowel Sounds, Soft Extremities: Yes: Other (RT MTC amputation) Labs: CBC, BMP 02/12/19 06:30 02/12/19 06:30 INR, PTT INR 1.34 (0.83-1.09) H 02/08/19 05:45 Fibrinogen 297.0 mg/dL (238-498) 02/02/19 08:50 Problem List - Problems (1) Diabetic foot ulcer Assessment/Plan: Gangrene S/P Rt foot MT amputation Cont IV antibxs ID consult noted Code(s): E11.621 - TYPE 2 DIABETES MELLITUS WITH FOOT ULCER; L97.509 - NON- PRESSURE CHRONIC ULCER OTH PRT UNSP FOOT W UNSP SEVERITY (2) Diabetes type 2, uncontrolled Assessment/Plan: Cont sliding scale w/ coverage Code(s): E11.65 - TYPE 2 DIABETES MELLITUS WITH HYPERGLYCEMIA (3) Hypertension Assessment/Plan: BP stable Cont metoprolol Code(s): I10 - ESSENTIAL (PRIMARY) HYPERTENSION (4) CAD (coronary artery disease) Assessment/Plan: Cont asa Code(s): I25.10 - ATHSCL HEART DISEASE OF [place] CORONARY ARTERY W/O ANG PCTRS (5) HLD (hyperlipidemia) Assessment/Plan: Cont lipitor Code(s): E78.5 - HYPERLIPIDEMIA, UNSPECIFIED (6) PAD (peripheral artery disease) Assessment/Plan: S/p angioplasty and stent placement Cont xarelto Code(s): I73.9 - PERIPHERAL VASCULAR DISEASE, UNSPECIFIED
[2019-02-12] MEDS: ATORVASTATIN CA 40 MG TABLET (FP) PO SCH (21:48)
[2019-02-13] MEDS ORDERED: PIPERACILLIN/TAZOBACTAM 3.375 GM VIAL IVPB ONE ×4 (01:17→23:06)
[2019-02-13] MEDS ORDERED: DEXTROSE 5%-WATER - 50 ML IVPB ONE ×4 (01:18→23:07)
[2019-02-13] MEDS: PIPERACILLIN/TAZOB 3.375 GM 3.375 GM in DEXTROSE 5%-WATER - 50 ML IVPB SCH ×3 (02:10→18:12)
[2019-02-13] MEDS ORDERED: PT OWN MED DRAWER 7, Y5N ONE ×3 (04:01→15:25)
[2019-02-13] MEDS: VANCOMYCIN 1,250 MG in DEXTROSE 5%-WATER - 250 ML IVPB SCH ×2 (04:05→15:29)
[2019-02-13] MEDS ORDERED: INSULIN (NOVOLOG) ASPART 100 UNITS/ML 10ML VIAL ONE (05:54)
[2019-02-13] MEDS: DOCUSATE SODIUM 100 MG CAPSULE (FP) PO SCH ×3 (06:26→21:28)
[2019-02-13] MEDS: INSULIN (LEVEMIR) 100 UNITS/ML UNITS SQ SCH ×2 (06:34→21:27)
[2019-02-13] MEDS: INSULIN SLIDING SCALE (NOVOLOG) 1 VIAL SQ SCH ×4 (06:35→21:26)
[2019-02-13] MEDS: DOXYCYCLINE HYCLATE 100 MG CAPSULE PO SCH ×2 (09:44→18:12)
[2019-02-13] MEDS: RIVAROXABAN 15 MG TABLET PO SCH ×2 (09:44→18:12)
[2019-02-13] MEDS: ASPIRIN 81 MG CHEWABLE TABLETS PO SCH (09:44)
[2019-02-13] MEDS: METOPROLOL TARTRATE 25 MG TABLET (FP) PO SCH ×2 (09:44→21:24)
[2019-02-13] MEDS: LISINOPRIL 10 MG TABLET (FP) PO SCH (09:44)
[2019-02-13] MEDS: POLYETHYLENE GLYCOL 3350 119 GM BTL PO SCH ×2 (09:45→21:27)
--- NOTE | 2019-02-13 11:07 | PN ---
Progress Note, Physician History of Present Illness: stable says he feels depressed - Current Medication List Current Medications: Active Medications Acetaminophen (Tylenol -) 650 mg PO Q4H PRN PRN Reason: FEVER Last Admin: 02/08/19 14:25 Dose: 650 mg Aspirin (Asa -) 81 mg PO DAILY [facility] Last Admin: 02/13/19 09:44 Dose: 81 mg Atorvastatin Calcium (Lipitor -) 40 mg PO HS [facility] Last Admin: 02/12/19 21:48 Dose: 40 mg Dexamethasone Sodium Phosphate (Decadron Injection -) 4 mg IVPUSH ONCE PRN PRN Reason: NAUSEA AND/OR VOMITING Diphenhydramine HCl (Benadryl Injection -) 12.5 mg IVPUSH ONCE PRN PRN Reason: FOR ITCHING Docusate Sodium (Colace -) 100 mg PO TID [facility] Last Admin: 02/13/19 06:26 Dose: Not Given Doxycycline Hyclate (Vibramycin -) 100 mg PO BID@1000,1800 [facility] Last Admin: 02/13/19 09:44 Dose: 100 mg Piperacillin Sod/Tazobactam (Sod 3.375 gm/ Dextrose) 50 mls @ 100 mls/hr IVPB Q8H-IV [facility] Last Admin: 02/13/19 09:44 Dose: 100 mls/hr Vancomycin HCl 1,250 mg/ (Dextrose) 250 mls @ 166.667 mls/hr IVPB Q12H [facility]; Protocol Last Admin: 02/13/19 04:05 Dose: 166.667 mls/hr Insulin Aspart (Novolog Vial Sliding Scale -) 1 vial SQ ACHS [facility]; Protocol Last Admin: 02/13/19 06:35 Dose: 6 units Insulin Detemir (Levemir Vial) 15 units SQ BID@0700,2200 [facility] Last Admin: 02/13/19 06:34 Dose: 15 units Lisinopril (Prinivil) 10 mg PO DAILY [facility] Last Admin: 02/13/19 09:44 Dose: 10 mg Metoprolol Tartrate (Lopressor -) 25 mg PO BID [facility] Last Admin: 02/13/19 09:44 Dose: 25 mg Metoprolol Tartrate (Lopressor Injection -) 5 mg IVPB Q4H PRN PRN Reason: HYPERTENSION Ondansetron HCl (Zofran Injection) 4 mg IVPUSH Q4H PRN PRN Reason: NAUSEA AND/OR VOMITING Oxycodone HCl (Roxicodone -) 5 mg PO Q8H PRN PRN Reason: pain level 4-10 4e Last Admin: 02/11/19 21:48 Dose: 5 mg Polyethylene Glycol (Miralax (For Daily Use) -) 17 gm PO BID [facility] Last Admin: 02/13/19 09:45 Dose: Not Given Rivaroxaban ([facility]to) [facility] [place] Last Admin: 02/13/19 09:44 Dose: 15 mg - Objective Vital Signs: Vital Signs Temperature 98.8 F 02/13/19 06:55 Pulse Rate 64 02/13/19 06:55 Respiratory Rate 20 02/13/19 06:55 Blood Pressure 128/84 02/13/19 06:55 O2 Sat by Pulse Oximetry (%) 99 02/12/19 21:00 Constitutional: Yes: No Distress, Calm Cardiovascular: Yes: S1, S2 Gastrointestinal: Yes: Normal Bowel Sounds, Soft Musculoskeletal: Yes: WNL Extremities: Yes: Other Wound/Incision: Yes: Dressing Dry and Intact Neurological: Yes: Alert, Oriented Psychiatric: Yes: Alert Labs: CBC, BMP 02/12/19 06:30 02/12/19 06:30 INR, PTT INR 1.34 (0.83-1.09) H 02/08/19 05:45 Fibrinogen 297.0 mg/dL (238-498) 02/02/19 08:50 Assessment/Plan Problem List - Problems (1) Arterial occlusion Code(s): I70.90 - UNSPECIFIED ATHEROSCLEROSIS (2) CAD (coronary artery disease) Code(s): I25.10 - ATHSCL HEART DISEASE OF [place] CORONARY ARTERY W/O ANG PCTRS (3) H/O heart artery stent Code(s): Z95.5 - PRESENCE OF CORONARY ANGIOPLASTY IMPLANT AND GRAFT (4) HLD (hyperlipidemia) Code(s): E78.5 - HYPERLIPIDEMIA, UNSPECIFIED (5) Hematuria Code(s): R31.9 - HEMATURIA, UNSPECIFIED (6) Obesity Code(s): E66.9 - OBESITY, UNSPECIFIED (7) PAD (peripheral artery disease) Code(s): I73.9 - PERIPHERAL VASCULAR DISEASE, UNSPECIFIED (8) Right leg pain Code(s): M79.604 - PAIN IN RIGHT LEG (9) Smokes cigarettes Code(s): F17.210 - NICOTINE DEPENDENCE, CIGARETTES, UNCOMPLICATED (10) Diabetes type 2, uncontrolled Code(s): E11.65 - TYPE 2 DIABETES MELLITUS WITH HYPERGLYCEMIA (11) Hypertension Code(s): I10 - ESSENTIAL (PRIMARY) HYPERTENSION Assessment/Plan 49 y.o. male with PMH of DVT, RLE arterial occlusion s/p TPA (has not been taking Xarelto due to lack of insurance coverage), obesity, CAD s/p stent, CHF, HTN, HLD, DM presented with c/o severe RLE pain x 1 wk and foot feeling cold. Noted to have Rt popliteal and tibial arterial occlusion and initially underwent thrombolysis but then subsequently had SFA angioplasty with stent and tibial artery angioplasty on 01/25/19. Pt noted to have increasing wbc count since yesterday and mild temp elevation to 99.3F. +recent hematuria Leukocytosis RLE popliteal and tibial artery occlusion s/p angioplasty/stent Hematuria Hx of RLE arterial occlusion s/p TPA CAD s/p stent CHF DM HTN HLD Obesity plan continue abx all cx results noted monitor vanco trough rest as per the team
--- NOTE | 2019-02-13 14:37 | PN ---
Progress Note (short form) - Note Progress Note: Podiatry F/U: Seen/evaluated at bedside NAD. Pain controlled, denies F/V/N/C/SOB/CP. Afebrile. S/p right transmetatarsal amputation. S/p multiple revascularizations with Dr. Chandler. Afebrile. Patient feels a bit depressed over current situation. ASHTYN: R foot: pedal pulses dopplerable, TG wnl. TMA site with sutures intact, no dehiscence noted, no purulent drainage, no fluctuance, no streaking cellulitis, no signs of active infection. No ischemic changes. There is an eschar dorsal central flap with no probing to bone, no purulence, no signs of active infection. The plantar flap is warm to touch, no ischemic changes. Imp: 49 year old diabetic, PVD male s/p right transmetatarsal amputation 1. Xeroform and DSD R foot 2. Non WB R foot 3. Pain control 4. Upon discharge will f/u in wound healing center Pipe Xie DPM
[2019-02-13] MEDS: ATORVASTATIN CA 40 MG TABLET (FP) PO SCH (21:24)
--- NOTE | 2019-02-13 21:59 | PN ---
Progress Note, Physician - Current Medication List Current Medications: Active Medications Acetaminophen (Tylenol -) 650 mg PO Q4H PRN PRN Reason: FEVER Last Admin: 02/08/19 14:25 Dose: 650 mg Aspirin (Asa -) 81 mg PO DAILY [facility] Last Admin: 02/13/19 09:44 Dose: 81 mg Atorvastatin Calcium (Lipitor -) 40 mg PO HS [facility] Last Admin: 02/13/19 21:24 Dose: 40 mg Dexamethasone Sodium Phosphate (Decadron Injection -) 4 mg IVPUSH ONCE PRN PRN Reason: NAUSEA AND/OR VOMITING Diphenhydramine HCl (Benadryl Injection -) 12.5 mg IVPUSH ONCE PRN PRN Reason: FOR ITCHING Docusate Sodium (Colace -) 100 mg PO TID [facility] Last Admin: 02/13/19 21:28 Dose: Not Given Doxycycline Hyclate (Vibramycin -) 100 mg PO BID@1000,1800 [facility] Last Admin: 02/13/19 18:12 Dose: 100 mg Piperacillin Sod/Tazobactam (Sod 3.375 gm/ Dextrose) 50 mls @ 100 mls/hr IVPB Q8H-IV [facility] Last Admin: 02/13/19 18:12 Dose: 100 mls/hr Vancomycin HCl 1,250 mg/ (Dextrose) 250 mls @ 166.667 mls/hr IVPB Q12H [facility]; Protocol Last Admin: 02/13/19 15:29 Dose: 166.667 mls/hr Insulin Aspart (Novolog Vial Sliding Scale -) 1 vial SQ ACHS [facility]; Protocol Last Admin: 02/13/19 21:26 Dose: 12 units Insulin Detemir (Levemir Vial) 15 units SQ BID@0700,2200 [facility] Last Admin: 02/13/19 21:27 Dose: 15 units Lisinopril (Prinivil) 10 mg PO DAILY [facility] Last Admin: 02/13/19 09:44 Dose: 10 mg Metoprolol Tartrate (Lopressor -) 25 mg PO BID [facility] Last Admin: 02/13/19 21:24 Dose: 25 mg Metoprolol Tartrate (Lopressor Injection -) 5 mg IVPB Q4H PRN PRN Reason: HYPERTENSION Ondansetron HCl (Zofran Injection) 4 mg IVPUSH Q4H PRN PRN Reason: NAUSEA AND/OR VOMITING Oxycodone HCl (Roxicodone -) 5 mg PO Q8H PRN PRN Reason: pain level 4-10 4e Last Admin: 02/11/19 21:48 Dose: 5 mg Polyethylene Glycol (Miralax (For Daily Use) -) 17 gm PO BID [facility] Last Admin: 02/13/19 21:27 Dose: Not Given Rivaroxaban (Xarelto) 15 mg PO BIDWM [facility] Last Admin: 02/13/19 18:12 Dose: 15 mg - Objective Vital Signs: Vital Signs Temperature 98.1 F 02/13/19 17:03 Pulse Rate 101 H 02/13/19 17:03 Respiratory Rate 20 02/13/19 17:03 Blood Pressure 146/90 02/13/19 17:03 O2 Sat by Pulse Oximetry (%) 99 02/13/19 09:00 Labs: CBC, BMP 02/12/19 06:30 02/12/19 06:30 INR, PTT INR 1.34 (0.83-1.09) H 02/08/19 05:45 Fibrinogen 297.0 mg/dL (238-498) 02/02/19 08:50 Problem List - Problems (1) Diabetic foot ulcer Code(s): E11.621 - TYPE 2 DIABETES MELLITUS WITH FOOT ULCER; L97.509 - NON- PRESSURE CHRONIC ULCER OTH PRT UNSP FOOT W UNSP SEVERITY (2) Diabetes type 2, uncontrolled Code(s): E11.65 - TYPE 2 DIABETES MELLITUS WITH HYPERGLYCEMIA (3) Hypertension Code(s): I10 - ESSENTIAL (PRIMARY) HYPERTENSION (4) CAD (coronary artery disease) Code(s): I25.10 - ATHSCL HEART DISEASE OF [place] CORONARY ARTERY W/O ANG PCTRS (5) HLD (hyperlipidemia) Code(s): E78.5 - HYPERLIPIDEMIA, UNSPECIFIED (6) PAD (peripheral artery disease) Code(s): I73.9 - PERIPHERAL VASCULAR DISEASE, UNSPECIFIED
[2019-02-14] MEDS: PIPERACILLIN/TAZOB 3.375 GM 3.375 GM in DEXTROSE 5%-WATER - 50 ML IVPB SCH ×3 (01:23→18:21)
[2019-02-14] MEDS: VANCOMYCIN 1,250 MG in DEXTROSE 5%-WATER - 250 ML IVPB SCH ×2 (03:37→15:58)
[2019-02-14] MEDS: INSULIN SLIDING SCALE (NOVOLOG) 1 VIAL SQ SCH ×4 (06:15→21:46)
[2019-02-14] MEDS: INSULIN (LEVEMIR) 100 UNITS/ML UNITS SQ SCH ×2 (06:16→21:47)
[2019-02-14] MEDS: DOCUSATE SODIUM 100 MG CAPSULE (FP) PO SCH ×3 (06:16→21:47)
[2019-02-14 06:38] LABS: EOS % 2.9 % (0-4.5); HEMATOCRIT 27.8 % (35.4-49); HEMOGLOBIN 9.1 GM/dL (11.7-16.9); MCH 25.9 pg (25.7-33.7); MCHC 32.7 g/dl (32.0-35.9); MEAN CELL VOLUME 79.1 fl (80-96); MEAN PLT VOLUME 6.5 fl (7.5-11.1); MONO % 9.1 % (3.8-10.2); RBC 3.51 M/mm3 (4.00-5.60); RDW 14.6 % (11.9-15.9); WHITE BLOOD COUNT 14.6 K/mm3 (4.0-10.0)
[2019-02-14 06:58] LABS: PLATELET COUNT 1192 K/MM3 (134-434)
[2019-02-14] MEDS: RIVAROXABAN 15 MG TABLET PO SCH ×2 (08:08→17:15)
--- NOTE | 2019-02-14 08:30 | PN ---
Progress Note, Physician History of Present Illness: stable no new issues - Current Medication List Current Medications: Active Medications Acetaminophen (Tylenol -) 650 mg PO Q4H PRN PRN Reason: FEVER Last Admin: 02/08/19 14:25 Dose: 650 mg Aspirin (Asa -) 81 mg PO DAILY [facility] Last Admin: 02/13/19 09:44 Dose: 81 mg Atorvastatin Calcium (Lipitor -) 40 mg PO HS [facility] Last Admin: 02/13/19 21:24 Dose: 40 mg Dexamethasone Sodium Phosphate (Decadron Injection -) 4 mg IVPUSH ONCE PRN PRN Reason: NAUSEA AND/OR VOMITING Diphenhydramine HCl (Benadryl Injection -) 12.5 mg IVPUSH ONCE PRN PRN Reason: FOR ITCHING Docusate Sodium (Colace -) 100 mg PO TID [facility] Last Admin: 02/14/19 06:16 Dose: Not Given Doxycycline Hyclate (Vibramycin -) 100 mg PO BID@1000,1800 [facility] Last Admin: 02/13/19 18:12 Dose: 100 mg Piperacillin Sod/Tazobactam (Sod 3.375 gm/ Dextrose) 50 mls @ 100 mls/hr IVPB Q8H-IV [facility] Last Admin: 02/14/19 01:23 Dose: 100 mls/hr Vancomycin HCl 1,250 mg/ (Dextrose) 250 mls @ 166.667 mls/hr IVPB Q12H [facility]; Protocol Last Admin: 02/14/19 03:37 Dose: 166.667 mls/hr Insulin Aspart (Novolog Vial Sliding Scale -) 1 vial SQ ACHS [facility]; Protocol Last Admin: 02/14/19 06:15 Dose: 6 units Insulin Detemir (Levemir Vial) 15 units SQ BID@0700,2200 [facility] Last Admin: 02/14/19 06:16 Dose: 15 units Lisinopril (Prinivil) 10 mg PO DAILY [facility] Last Admin: 02/13/19 09:44 Dose: 10 mg Metoprolol Tartrate (Lopressor -) 25 mg PO BID [facility] Last Admin: 02/13/19 21:24 Dose: 25 mg Metoprolol Tartrate (Lopressor Injection -) 5 mg IVPB Q4H PRN PRN Reason: HYPERTENSION Ondansetron HCl (Zofran Injection) 4 mg IVPUSH Q4H PRN PRN Reason: NAUSEA AND/OR VOMITING Oxycodone HCl (Roxicodone -) 5 mg PO Q8H PRN PRN Reason: pain level 4-10 4e Last Admin: 02/11/19 21:48 Dose: 5 mg Polyethylene Glycol (Miralax (For Daily Use) -) 17 gm PO BID [facility] Last Admin: 02/13/19 21:27 Dose: Not Given [facility] Last Admin: 02/14/19 08:08 Dose: 15 mg - Objective Vital Signs: Vital Signs Temperature 99 F 02/14/19 05:00 Pulse Rate 80 02/14/19 05:00 Respiratory Rate 20 02/14/19 05:00 Blood Pressure 110/80 02/14/19 05:00 O2 Sat by Pulse Oximetry (%) 99 02/13/19 21:00 Constitutional: Yes: No Distress, Calm Cardiovascular: Yes: S1, S2 Respiratory: Yes: Regular, CTA Bilaterally Gastrointestinal: Yes: Normal Bowel Sounds, Soft Musculoskeletal: Yes: WNL Extremities: Yes: Other Wound/Incision: Yes: Dressing Dry and Intact Neurological: Yes: Alert, Other Psychiatric: Yes: Other Labs: CBC, BMP 02/14/19 06:00 02/12/19 06:30 INR, PTT INR 1.34 (0.83-1.09) H 02/08/19 05:45 Fibrinogen 297.0 mg/dL (238-498) 02/02/19 08:50 Assessment/Plan Problem List - Problems (1) Arterial occlusion Code(s): I70.90 - UNSPECIFIED ATHEROSCLEROSIS (2) CAD (coronary artery disease) Code(s): I25.10 - ATHSCL HEART DISEASE OF [place] CORONARY ARTERY W/O ANG PCTRS (3) H/O heart artery stent Code(s): Z95.5 - PRESENCE OF CORONARY ANGIOPLASTY IMPLANT AND GRAFT (4) HLD (hyperlipidemia) Code(s): E78.5 - HYPERLIPIDEMIA, UNSPECIFIED (5) Hematuria Code(s): R31.9 - HEMATURIA, UNSPECIFIED (6) Obesity Code(s): E66.9 - OBESITY, UNSPECIFIED (7) PAD (peripheral artery disease) Code(s): I73.9 - PERIPHERAL VASCULAR DISEASE, UNSPECIFIED (8) Right leg pain Code(s): M79.604 - PAIN IN RIGHT LEG (9) Smokes cigarettes Code(s): F17.210 - NICOTINE DEPENDENCE, CIGARETTES, UNCOMPLICATED (10) Diabetes type 2, uncontrolled Code(s): E11.65 - TYPE 2 DIABETES MELLITUS WITH HYPERGLYCEMIA (11) Hypertension Code(s): I10 - ESSENTIAL (PRIMARY) HYPERTENSION Assessment/Plan 49 y.o. male with PMH of DVT, RLE arterial occlusion s/p TPA (has not been taking Xarelto due to lack of insurance coverage), obesity, CAD s/p stent, CHF, HTN, HLD, DM presented with c/o severe RLE pain x 1 wk and foot feeling cold. Noted to have Rt popliteal and tibial arterial occlusion and initially underwent thrombolysis but then subsequently had SFA angioplasty with stent and tibial artery angioplasty on 01/25/19. Pt noted to have increasing wbc count since yesterday and mild temp elevation to 99.3F. +recent hematuria Leukocytosis RLE popliteal and tibial artery occlusion s/p angioplasty/stent Hematuria Hx of RLE arterial occlusion s/p TPA CAD s/p stent CHF DM HTN HLD Obesity plan continue abx wound care
[2019-02-14] MEDS ORDERED: PIPERACILLIN/TAZOBACTAM 3.375 GM VIAL IVPB ONE ×2 (08:50→23:57)
[2019-02-14] MEDS ORDERED: DEXTROSE 5%-WATER - 50 ML IVPB ONE ×2 (08:50→23:57)
[2019-02-14] MEDS: METOPROLOL TARTRATE 25 MG TABLET (FP) PO SCH ×2 (09:05→21:46)
[2019-02-14] MEDS: ASPIRIN 81 MG CHEWABLE TABLETS PO SCH (09:05)
[2019-02-14] MEDS: DOXYCYCLINE HYCLATE 100 MG CAPSULE PO SCH ×2 (09:05→17:15)
[2019-02-14] MEDS: LISINOPRIL 10 MG TABLET (FP) PO SCH (09:05)
[2019-02-14] MEDS: POLYETHYLENE GLYCOL 3350 119 GM BTL PO SCH ×2 (09:11→21:47)
--- NOTE | 2019-02-14 14:17 | OPR ---
Pre op - right foot gangrene Post op - same Surgeon - Dr. Kt Waller DPM Asst: None Anestheshia - Iv sed with local Indications: Patient is a 49 y/o with the abov emention diagnosis. Patient had recent blood clot which has led to subsequent gangrene of the distal right foot and requires amputation at this time. After explanation of risks and benefits for the proposed proceure patient signed the consent form. All questions and concerns were answered. Prior NPO status was verified and prop abx were given. Patient brought to the OR and placed on the OR table in supine position. No tourniquet was utilized for this procedure. Local injection of 20 CC of 2% lidocaine plain was injected into th eankle in ankle block type fashion w/o complication. Following procedure began. Attn was directed to the distal aspect of the right foot where gross gangrene was noted of digits 2-5. large drained blister was noted dorsally. Prior to incision the blister was cleaned and overlying necrotic tissue removed w/o complication. With 15 blade a circumferential incision was made starting dorsally just proximal to the MPJ's and going around the foot to the plantar aspect of the MPJ. The was carried deep to the level of the MPJ's and the forefoot was disarticulates at this time and passed from the operative field. Moderately good blood flow was noted but patient was noted to quickly clot. The dorsal skin was incised proximally to expose the midshaft metatarsals and with use of a sagittal saw the metatarals was transected 1-5 and passed from the operative field. The sesamoid apparatus was removed and passed from the operative field. Bone from proximal metatarsal were sent to pathology and for culture. The plantar flap was brought to dorsal aspect of the foot and then closed with 3.0 vicrly and 3.0 nylon in the normal manner. Patient ttolerated anesthesia well and w/o complication and was transported to the PACU with VSS and NVSI to the right foot. Close attn will need to be paid t the dorsal foot where blister was for necrosis. Will f/u on the floors.
[2019-02-14] MEDS ORDERED: PT OWN MED DRAWER 7, Y5N ONE (15:55)
--- NOTE | 2019-02-14 16:18 | PN ---
Progress Note (short form) - Note Progress Note: Podiatry F/U: Seen/evaluated at bedside NAD. Pain controlled, denies F/V/N/C/SOB/CP. Afebrile. S/p right transmetatarsal amputation. S/p multiple revascularizations with Dr. Chandler. Afebrile. Doing well today ASHTYN: R foot: pedal pulses dopplerable, TG wnl. TMA site with sutures intact, no dehiscence noted, no purulent drainage, no fluctuance, no streaking cellulitis, no signs of active infection. There is an eschar dorsal central flap with no probing to bone, no purulence, no signs of active infection. The plantar flap is warm to touch, minimal duskiness noted on plantar flap Imp: 49 year old diabetic, PVD male s/p right transmetatarsal amputation 1. Xeroform and DSD R foot 2. Non WB R foot 3. Pain control 4. IV abx per ID 5. Upon discharge will f/u in wound healing center
--- NOTE | 2019-02-14 21:43 | PN ---
Progress Note, Physician - Current Medication List Current Medications: Active Medications Acetaminophen (Tylenol -) 650 mg PO Q4H PRN PRN Reason: FEVER Last Admin: 02/08/19 14:25 Dose: 650 mg Aspirin (Asa -) 81 mg PO DAILY [facility] Last Admin: 02/14/19 09:05 Dose: 81 mg Atorvastatin Calcium (Lipitor -) 40 mg PO HS [facility] Last Admin: 02/13/19 21:24 Dose: 40 mg Dexamethasone Sodium Phosphate (Decadron Injection -) 4 mg IVPUSH ONCE PRN PRN Reason: NAUSEA AND/OR VOMITING Diphenhydramine HCl (Benadryl Injection -) 12.5 mg IVPUSH ONCE PRN PRN Reason: FOR ITCHING Docusate Sodium (Colace -) 100 mg PO TID [facility] Last Admin: 02/14/19 13:46 Dose: Not Given Doxycycline Hyclate (Vibramycin -) 100 mg PO BID@1000,1800 [facility] Last Admin: 02/14/19 17:15 Dose: 100 mg Piperacillin Sod/Tazobactam (Sod 3.375 gm/ Dextrose) 50 mls @ 100 mls/hr IVPB Q8H-IV [facility] Last Admin: 02/14/19 18:21 Dose: Not Given Vancomycin HCl 1,250 mg/ (Dextrose) 250 mls @ 166.667 mls/hr IVPB Q12H [facility]; Protocol Last Admin: 02/14/19 15:58 Dose: 166.667 mls/hr Insulin Aspart (Novolog Vial Sliding Scale -) 1 vial SQ ACHS [facility]; Protocol Last Admin: 02/14/19 16:42 Dose: 10 units Insulin Detemir (Levemir Vial) 15 units SQ BID@0700,2200 [facility] Last Admin: 02/14/19 06:16 Dose: 15 units Lisinopril (Prinivil) 10 mg PO DAILY [facility] Last Admin: 02/14/19 09:05 Dose: 10 mg Metoprolol Tartrate (Lopressor -) 25 mg PO BID [facility] Last Admin: 02/14/19 09:05 Dose: 25 mg Metoprolol Tartrate (Lopressor Injection -) 5 mg IVPB Q4H PRN PRN Reason: HYPERTENSION Ondansetron HCl (Zofran Injection) 4 mg IVPUSH Q4H PRN PRN Reason: NAUSEA AND/OR VOMITING Polyethylene Glycol (Miralax (For Daily Use) -) 17 gm PO BID [facility] Last Admin: 02/14/19 09:11 Dose: Not Given Rivaroxaban (Xarelto) 15 mg PO BIDWM [facility] Last Admin: 02/14/19 17:15 Dose: 15 mg - Objective Vital Signs: Vital Signs Temperature 97.9 F 02/14/19 17:08 Pulse Rate 107 H 02/14/19 17:08 Respiratory Rate 20 02/14/19 17:08 Blood Pressure 129/80 02/14/19 17:08 O2 Sat by Pulse Oximetry (%) 99 02/14/19 09:00 Labs: CBC, BMP 02/14/19 06:00 02/12/19 06:30 INR, PTT INR 1.34 (0.83-1.09) H 02/08/19 05:45 Fibrinogen 297.0 mg/dL (238-498) 02/02/19 08:50 Problem List - Problems (1) Diabetic foot ulcer Code(s): E11.621 - TYPE 2 DIABETES MELLITUS WITH FOOT ULCER; L97.509 - NON- PRESSURE CHRONIC ULCER OTH PRT UNSP FOOT W UNSP SEVERITY (2) Diabetes type 2, uncontrolled Code(s): E11.65 - TYPE 2 DIABETES MELLITUS WITH HYPERGLYCEMIA (3) Hypertension Code(s): I10 - ESSENTIAL (PRIMARY) HYPERTENSION (4) CAD (coronary artery disease) Code(s): I25.10 - ATHSCL HEART DISEASE OF [place] CORONARY ARTERY W/O ANG PCTRS (5) HLD (hyperlipidemia) Code(s): E78.5 - HYPERLIPIDEMIA, UNSPECIFIED (6) PAD (peripheral artery disease) Code(s): I73.9 - PERIPHERAL VASCULAR DISEASE, UNSPECIFIED
[2019-02-14] MEDS: ATORVASTATIN CA 40 MG TABLET (FP) PO SCH (21:46)
[2019-02-15] MEDS: PIPERACILLIN/TAZOB 3.375 GM 3.375 GM in DEXTROSE 5%-WATER - 50 ML IVPB SCH ×3 (01:34→18:59)
[2019-02-15] MEDS: VANCOMYCIN 1,250 MG in DEXTROSE 5%-WATER - 250 ML IVPB SCH ×2 (03:32→17:24)
[2019-02-15] MEDS: DOCUSATE SODIUM 100 MG CAPSULE (FP) PO SCH ×3 (05:47→22:54)
[2019-02-15] MEDS: INSULIN SLIDING SCALE (NOVOLOG) 1 VIAL SQ SCH ×4 (06:10→21:13)
[2019-02-15] MEDS: INSULIN (LEVEMIR) 100 UNITS/ML UNITS SQ SCH ×2 (06:11→22:52)
--- NOTE | 2019-02-15 09:00 | PN ---
Progress Note, Physician History of Present Illness: stable no new issues - Current Medication List Current Medications: Active Medications Acetaminophen (Tylenol -) 650 mg PO Q4H PRN PRN Reason: FEVER Last Admin: 02/08/19 14:25 Dose: 650 mg Aspirin (Asa -) 81 mg PO DAILY [facility] Last Admin: 02/14/19 09:05 Dose: 81 mg Atorvastatin Calcium (Lipitor -) 40 mg PO HS [facility] Last Admin: 02/14/19 21:46 Dose: 40 mg Dexamethasone Sodium Phosphate (Decadron Injection -) 4 mg IVPUSH ONCE PRN PRN Reason: NAUSEA AND/OR VOMITING Diphenhydramine HCl (Benadryl Injection -) 12.5 mg IVPUSH ONCE PRN PRN Reason: FOR ITCHING Docusate Sodium (Colace -) 100 mg PO TID [facility] Last Admin: 02/15/19 05:47 Dose: Not Given Doxycycline Hyclate (Vibramycin -) 100 mg PO BID@1000,1800 [facility] Last Admin: 02/14/19 17:15 Dose: 100 mg Piperacillin Sod/Tazobactam (Sod 3.375 gm/ Dextrose) 50 mls @ 100 mls/hr IVPB Q8H-IV [facility] Last Admin: 02/15/19 01:34 Dose: 100 mls/hr Vancomycin HCl 1,250 mg/ (Dextrose) 250 mls @ 166.667 mls/hr IVPB Q12H [facility]; Protocol Last Admin: 02/15/19 03:32 Dose: 166.667 mls/hr Insulin Aspart (Novolog Vial Sliding Scale -) 1 vial SQ ACHS [facility]; Protocol Last Admin: 02/15/19 06:10 Dose: 8 units Insulin Detemir (Levemir Vial) 15 units SQ BID@0700,2200 [facility] Last Admin: 02/15/19 06:11 Dose: 15 units Lisinopril (Prinivil) 10 mg PO DAILY [facility] Last Admin: 02/14/19 09:05 Dose: 10 mg Metoprolol Tartrate (Lopressor -) 25 mg PO BID [facility] Last Admin: 02/14/19 21:46 Dose: 25 mg Metoprolol Tartrate (Lopressor Injection -) 5 mg IVPB Q4H PRN PRN Reason: HYPERTENSION Ondansetron HCl (Zofran Injection) 4 mg IVPUSH Q4H PRN PRN Reason: NAUSEA AND/OR VOMITING Polyethylene Glycol (Miralax (For Daily Use) -) 17 gm PO BID [facility] Last Admin: 02/14/19 21:47 Dose: Not Given Rivaroxaban (Xarelto) 15 mg PO BIDWM [facility] Last Admin: 02/14/19 17:15 Dose: 15 mg - Objective Vital Signs: Vital Signs Temperature 98.0 F 02/15/19 05:00 Pulse Rate 82 02/15/19 05:00 Respiratory Rate 18 02/15/19 05:00 Blood Pressure 120/70 02/15/19 05:00 O2 Sat by Pulse Oximetry (%) 99 02/14/19 21:00 Constitutional: Yes: No Distress, Calm Cardiovascular: Yes: S1, S2 Respiratory: Yes: Regular, CTA Bilaterally Gastrointestinal: Yes: Normal Bowel Sounds, Soft Musculoskeletal: Yes: WNL Extremities: Yes: Other Wound/Incision: Yes: Dressing Dry and Intact Neurological: Yes: Alert, Oriented Psychiatric: Yes: Alert, Oriented Labs: CBC, BMP 02/14/19 06:00 02/12/19 06:30 INR, PTT INR 1.34 (0.83-1.09) H 02/08/19 05:45 Fibrinogen 297.0 mg/dL (238-498) 02/02/19 08:50 Assessment/Plan Assessment/Plan Problem List - Problems (1) Arterial occlusion Code(s): I70.90 - UNSPECIFIED ATHEROSCLEROSIS (2) CAD (coronary artery disease) Code(s): I25.10 - ATHSCL HEART DISEASE OF [place] CORONARY ARTERY W/O ANG PCTRS (3) H/O heart artery stent Code(s): Z95.5 - PRESENCE OF CORONARY ANGIOPLASTY IMPLANT AND GRAFT (4) HLD (hyperlipidemia) Code(s): E78.5 - HYPERLIPIDEMIA, UNSPECIFIED (5) Hematuria Code(s): R31.9 - HEMATURIA, UNSPECIFIED (6) Obesity Code(s): E66.9 - OBESITY, UNSPECIFIED (7) PAD (peripheral artery disease) Code(s): I73.9 - PERIPHERAL VASCULAR DISEASE, UNSPECIFIED (8) Right leg pain Code(s): M79.604 - PAIN IN RIGHT LEG (9) Smokes cigarettes Code(s): F17.210 - NICOTINE DEPENDENCE, CIGARETTES, UNCOMPLICATED (10) Diabetes type 2, uncontrolled Code(s): E11.65 - TYPE 2 DIABETES MELLITUS WITH HYPERGLYCEMIA (11) Hypertension Code(s): I10 - ESSENTIAL (PRIMARY) HYPERTENSION Assessment/Plan 49 y.o. male with PMH of DVT, RLE arterial occlusion s/p TPA (has not been taking Xarelto due to lack of insurance coverage), obesity, CAD s/p stent, CHF, HTN, HLD, DM presented with c/o severe RLE pain x 1 wk and foot feeling cold. Noted to have Rt popliteal and tibial arterial occlusion and initially underwent thrombolysis but then subsequently had SFA angioplasty with stent and tibial artery angioplasty on 01/25/19. Pt noted to have increasing wbc count since yesterday and mild temp elevation to 99.3F. +recent hematuria Leukocytosis RLE popliteal and tibial artery occlusion s/p angioplasty/stent Hematuria Hx of RLE arterial occlusion s/p TPA CAD s/p stent CHF DM HTN HLD Obesity plan continue current mgmt physio wound care rest as per the team
[2019-02-15] MEDS ORDERED: PIPERACILLIN/TAZOBACTAM 3.375 GM VIAL IVPB ONE ×2 (10:09→18:48)
[2019-02-15] MEDS ORDERED: PT OWN MED DRAWER 7, Y5N ONE ×3 (10:09→22:07)
[2019-02-15] MEDS ORDERED: DEXTROSE 5%-WATER - 50 ML IVPB ONE ×2 (10:09→18:49)
[2019-02-15] MEDS: METOPROLOL TARTRATE 25 MG TABLET (FP) PO SCH ×2 (10:15→22:53)
[2019-02-15] MEDS: POLYETHYLENE GLYCOL 3350 119 GM BTL PO SCH ×2 (10:16→23:00)
[2019-02-15] MEDS: RIVAROXABAN 15 MG TABLET PO SCH ×2 (10:16→17:29)
[2019-02-15] MEDS: LISINOPRIL 10 MG TABLET (FP) PO SCH (10:16)
[2019-02-15] MEDS: DOXYCYCLINE HYCLATE 100 MG CAPSULE PO SCH (10:16)
[2019-02-15] MEDS: ASPIRIN 81 MG CHEWABLE TABLETS PO SCH (10:16)
--- NOTE | 2019-02-15 14:37 | PATH ---
Surgical Pathology Report Patient Name: MAXI HODGE Med. Rec. #: [id number] /Age/Gender: 1970 (Age: 49) / M Account: [id number] Location: [facility] MED/SURG Taken: 02/08/2019 Received: 02/08/2019 Reported: 02/15/2019 Physicians: Kt Waller DPM Specimen(s) Received GANGRENOUS FOREFOOT (RIGHT) Clinical History Occlusion of artery Final Diagnosis GANGRENOUS FOREFOOT, RIGHT, TRANSMETATARSAL AMPUTATION: FOREFOOT SHOWING GANGRENOUS NECROSIS OF SKIN AND SOFT TISSUE AND NECROSIS OF UNDERLYING BONE. ARTERY SHOWING COMPLETE OCCLUSION WITH FIBRIN THROMBUS. SKIN, SOFT TISSUE AND BONE AT RESECTION MARGIN ARE VIABLE/NON-NECROTIC. Electronically Signed Chey Zhang M.D. Gross Description Received in, labeled "gangrenous forefoot (right)" is an 11 x 6.5 x 2.5 cm right forefoot showing marked novoa-black discoloration of the skin. Also received is an 8.5 x 7 x 3 cm aggregate of fibrofatty tissue, bone and skin. The resection margin of the foot is inked black. Evaluator Transfer Students sections are submitted in 6 cassettes as follows: 1-necrotic skin and soft tissue; 2, 3-necrotic skin, soft tissue and bone; 4-skin and soft tissue from resection margin; 5- bone from resection margin; 6-separate fragments of skin, soft tissue and bone. AE/02/09/2019 ebram/02/09/2019
[2019-02-15] MEDS: ATORVASTATIN CA 40 MG TABLET (FP) PO SCH (22:53)
--- NOTE | 2019-02-15 23:13 | PN ---
Progress Note, Physician - Current Medication List Current Medications: Active Medications Acetaminophen (Tylenol -) 650 mg PO Q4H PRN PRN Reason: FEVER Last Admin: 02/08/19 14:25 Dose: 650 mg Aspirin (Asa -) 81 mg PO DAILY [facility] Last Admin: 02/15/19 10:16 Dose: 81 mg Atorvastatin Calcium (Lipitor -) 40 mg PO HS [facility] Last Admin: 02/15/19 22:53 Dose: 40 mg Dexamethasone Sodium Phosphate (Decadron Injection -) 4 mg IVPUSH ONCE PRN PRN Reason: NAUSEA AND/OR VOMITING Diphenhydramine HCl (Benadryl Injection -) 12.5 mg IVPUSH ONCE PRN PRN Reason: FOR ITCHING Docusate Sodium (Colace -) 100 mg PO TID [facility] Last Admin: 02/15/19 22:54 Dose: Not Given Vancomycin HCl 1,250 mg/ (Dextrose) 250 mls @ 166.667 mls/hr IVPB Q12H [facility]; Protocol Last Admin: 02/15/19 17:24 Dose: 166.667 mls/hr Piperacillin Sod/Tazobactam (Sod 3.375 gm/ Dextrose) 50 mls @ 100 mls/hr IVPB Q8H-IV [facility] Last Admin: 02/15/19 18:59 Dose: 100 mls/hr Insulin Aspart (Novolog Vial Sliding Scale -) 1 vial SQ ACHS [facility]; Protocol Last Admin: 02/15/19 21:13 Dose: 8 units Insulin Detemir (Levemir Vial) 15 units SQ BID@0700,2200 [facility] Last Admin: 02/15/19 22:52 Dose: 15 units Lisinopril (Prinivil) 10 mg PO DAILY [facility] Last Admin: 02/15/19 10:16 Dose: 10 mg Metoprolol Tartrate (Lopressor -) 25 mg PO BID [facility] Last Admin: 02/15/19 22:53 Dose: 25 mg Metoprolol Tartrate (Lopressor Injection -) 5 mg IVPB Q4H PRN PRN Reason: HYPERTENSION Ondansetron HCl (Zofran Injection) 4 mg IVPUSH Q4H PRN PRN Reason: NAUSEA AND/OR VOMITING Polyethylene Glycol (Miralax (For Daily Use) -) 17 gm PO BID [facility] Last Admin: 02/15/19 23:00 Dose: Not Given Rivaroxaban (Xarelto) 15 mg PO BIDWM [facility] Last Admin: 02/15/19 17:29 Dose: 15 mg - Objective Vital Signs: Vital Signs Temperature 97.9 F 02/15/19 22:00 Pulse Rate 105 H 02/15/19 22:00 Respiratory Rate 18 02/15/19 22:00 Blood Pressure 135/75 02/15/19 22:00 O2 Sat by Pulse Oximetry (%) 99 02/14/19 21:00 Labs: CBC, BMP 02/14/19 06:00 02/12/19 06:30 INR, PTT INR 1.34 (0.83-1.09) H 02/08/19 05:45 Fibrinogen 297.0 mg/dL (238-498) 02/02/19 08:50 Problem List - Problems (1) Diabetic foot ulcer Code(s): E11.621 - TYPE 2 DIABETES MELLITUS WITH FOOT ULCER; L97.509 - NON- PRESSURE CHRONIC ULCER OTH PRT UNSP FOOT W UNSP SEVERITY (2) Diabetes type 2, uncontrolled Code(s): E11.65 - TYPE 2 DIABETES MELLITUS WITH HYPERGLYCEMIA (3) Hypertension Code(s): I10 - ESSENTIAL (PRIMARY) HYPERTENSION (4) CAD (coronary artery disease) Code(s): I25.10 - ATHSCL HEART DISEASE OF [place] CORONARY ARTERY W/O ANG PCTRS (5) HLD (hyperlipidemia) Code(s): E78.5 - HYPERLIPIDEMIA, UNSPECIFIED (6) PAD (peripheral artery disease) Code(s): I73.9 - PERIPHERAL VASCULAR DISEASE, UNSPECIFIED
[2019-02-16] MEDS ORDERED: DEXTROSE 5%-WATER - 50 ML IVPB ONE ×3 (02:01→19:43)
[2019-02-16] MEDS ORDERED: PIPERACILLIN/TAZOBACTAM 3.375 GM VIAL IVPB ONE ×3 (02:01→19:42)
[2019-02-16] MEDS: PIPERACILLIN/TAZOB 3.375 GM 3.375 GM in DEXTROSE 5%-WATER - 50 ML IVPB SCH ×3 (02:11→19:47)
[2019-02-16] MEDS ORDERED: PT OWN MED DRAWER 7, Y5N ONE ×2 (03:51→17:33)
[2019-02-16] MEDS: VANCOMYCIN 1,250 MG in DEXTROSE 5%-WATER - 250 ML IVPB SCH ×2 (04:09→17:39)
[2019-02-16] MEDS: DOCUSATE SODIUM 100 MG CAPSULE (FP) PO SCH ×3 (06:01→23:18)
[2019-02-16] MEDS: INSULIN (LEVEMIR) 100 UNITS/ML UNITS SQ SCH ×2 (06:45→23:16)
[2019-02-16] MEDS: INSULIN SLIDING SCALE (NOVOLOG) 1 VIAL SQ SCH ×4 (06:46→23:18)
[2019-02-16] MEDS: ASPIRIN 81 MG CHEWABLE TABLETS PO SCH (10:08)
[2019-02-16] MEDS: LISINOPRIL 10 MG TABLET (FP) PO SCH (10:08)
[2019-02-16] MEDS: METOPROLOL TARTRATE 25 MG TABLET (FP) PO SCH ×2 (10:08→23:16)
[2019-02-16] MEDS: RIVAROXABAN 15 MG TABLET PO SCH ×2 (10:08→17:39)
[2019-02-16] MEDS: POLYETHYLENE GLYCOL 3350 119 GM BTL PO SCH ×2 (10:10→23:18)
--- NOTE | 2019-02-16 10:59 | PN ---
Progress Note, Physician History of Present Illness: patient stable no new issues - Current Medication List Current Medications: Active Medications Acetaminophen (Tylenol -) 650 mg PO Q4H PRN PRN Reason: FEVER Last Admin: 02/08/19 14:25 Dose: 650 mg Aspirin (Asa -) 81 mg PO DAILY [facility] Last Admin: 02/16/19 10:08 Dose: 81 mg Atorvastatin Calcium (Lipitor -) 40 mg PO HS [facility] Last Admin: 02/15/19 22:53 Dose: 40 mg Dexamethasone Sodium Phosphate (Decadron Injection -) 4 mg IVPUSH ONCE PRN PRN Reason: NAUSEA AND/OR VOMITING Diphenhydramine HCl (Benadryl Injection -) 12.5 mg IVPUSH ONCE PRN PRN Reason: FOR ITCHING Docusate Sodium (Colace -) 100 mg PO TID [facility] Last Admin: 02/16/19 06:01 Dose: 100 mg Vancomycin HCl 1,250 mg/ (Dextrose) 250 mls @ 166.667 mls/hr IVPB Q12H [facility]; Protocol Last Admin: 02/16/19 04:09 Dose: 166.667 mls/hr Piperacillin Sod/Tazobactam (Sod 3.375 gm/ Dextrose) 50 mls @ 100 mls/hr IVPB Q8H-IV [facility] Last Admin: 02/16/19 10:08 Dose: 100 mls/hr Insulin Aspart (Novolog Vial Sliding Scale -) 1 vial SQ ACHS [facility]; Protocol Last Admin: 02/16/19 06:46 Dose: 6 units Insulin Detemir (Levemir Vial) 15 units SQ BID@0700,2200 [facility] Last Admin: 02/16/19 06:45 Dose: 15 units Lisinopril (Prinivil) 10 mg PO DAILY [facility] Last Admin: 02/16/19 10:08 Dose: 10 mg Metoprolol Tartrate (Lopressor -) 25 mg PO BID [facility] Last Admin: 02/16/19 10:08 Dose: 25 mg Metoprolol Tartrate (Lopressor Injection -) 5 mg IVPB Q4H PRN PRN Reason: HYPERTENSION Ondansetron HCl (Zofran Injection) 4 mg IVPUSH Q4H PRN PRN Reason: NAUSEA AND/OR VOMITING Polyethylene Glycol (Miralax (For Daily Use) -) 17 gm PO BID [facility] Last Admin: 02/16/19 10:10 Dose: 17 gm Rivaroxaban (Xarelto) 15 mg PO BIDWM [facility] Last Admin: 02/16/19 10:08 Dose: 15 mg - Objective Vital Signs: Vital Signs Temperature 98.4 F 02/16/19 07:07 Pulse Rate 80 02/16/19 07:07 Respiratory Rate 20 02/16/19 07:07 Blood Pressure 100/56 L 02/16/19 07:07 O2 Sat by Pulse Oximetry (%) 99 02/14/19 21:00 Constitutional: Yes: No Distress, Calm Cardiovascular: Yes: S1, S2 Respiratory: Yes: Regular, CTA Bilaterally Gastrointestinal: Yes: Normal Bowel Sounds, Soft Musculoskeletal: Yes: WNL Extremities: Yes: Other Wound/Incision: Yes: Dressing Dry and Intact Neurological: Yes: Alert, Oriented Psychiatric: Yes: Alert, Oriented Labs: CBC, BMP 02/14/19 06:00 02/12/19 06:30 INR, PTT INR 1.34 (0.83-1.09) H 02/08/19 05:45 Fibrinogen 297.0 mg/dL (238-498) 02/02/19 08:50 Assessment/Plan Assessment/Plan Problem List - Problems (1) Arterial occlusion Code(s): I70.90 - UNSPECIFIED ATHEROSCLEROSIS (2) CAD (coronary artery disease) Code(s): I25.10 - ATHSCL HEART DISEASE OF [place] CORONARY ARTERY W/O ANG PCTRS (3) H/O heart artery stent Code(s): Z95.5 - PRESENCE OF CORONARY ANGIOPLASTY IMPLANT AND GRAFT (4) HLD (hyperlipidemia) Code(s): E78.5 - HYPERLIPIDEMIA, UNSPECIFIED (5) Hematuria Code(s): R31.9 - HEMATURIA, UNSPECIFIED (6) Obesity Code(s): E66.9 - OBESITY, UNSPECIFIED (7) PAD (peripheral artery disease) Code(s): I73.9 - PERIPHERAL VASCULAR DISEASE, UNSPECIFIED (8) Right leg pain Code(s): M79.604 - PAIN IN RIGHT LEG (9) Smokes cigarettes Code(s): F17.210 - NICOTINE DEPENDENCE, CIGARETTES, UNCOMPLICATED (10) Diabetes type 2, uncontrolled Code(s): E11.65 - TYPE 2 DIABETES MELLITUS WITH HYPERGLYCEMIA (11) Hypertension Code(s): I10 - ESSENTIAL (PRIMARY) HYPERTENSION Assessment/Plan 49 y.o. male with PMH of DVT, RLE arterial occlusion s/p TPA (has not been taking Xarelto due to lack of insurance coverage), obesity, CAD s/p stent, CHF, HTN, HLD, DM presented with c/o severe RLE pain x 1 wk and foot feeling cold. Noted to have Rt popliteal and tibial arterial occlusion and initially underwent thrombolysis but then subsequently had SFA angioplasty with stent and tibial artery angioplasty on 01/25/19. Pt noted to have increasing wbc count since yesterday and mild temp elevation to 99.3F. +recent hematuria Leukocytosis RLE popliteal and tibial artery occlusion s/p angioplasty/stent Hematuria Hx of RLE arterial occlusion s/p TPA CAD s/p stent CHF DM HTN HLD Obesity plan continue current mgmt physio wound care rest as per the team abx
[2019-02-16] MEDS ORDERED: INSULIN (NOVOLOG) ASPART 100 UNITS/ML 10ML VIAL ONE (11:51)
[2019-02-16] MEDS: ATORVASTATIN CA 40 MG TABLET (FP) PO SCH (23:16)
--- NOTE | 2019-02-17 01:43 | PN ---
Progress Note, Physician History of Present Illness: Pt seen and examined on 02/16/19 however note is being done now bc of internet problems - Current Medication List Current Medications: Active Medications Acetaminophen (Tylenol -) 650 mg PO Q4H PRN PRN Reason: FEVER Last Admin: 02/08/19 14:25 Dose: 650 mg Aspirin (Asa -) 81 mg PO DAILY [facility] Last Admin: 02/16/19 10:08 Dose: 81 mg Atorvastatin Calcium (Lipitor -) 40 mg PO HS [facility] Last Admin: 02/16/19 23:16 Dose: 40 mg Dexamethasone Sodium Phosphate (Decadron Injection -) 4 mg IVPUSH ONCE PRN PRN Reason: NAUSEA AND/OR VOMITING Diphenhydramine HCl (Benadryl Injection -) 12.5 mg IVPUSH ONCE PRN PRN Reason: FOR ITCHING Docusate Sodium (Colace -) 100 mg PO TID [facility] Last Admin: 02/16/19 23:18 Dose: Not Given Vancomycin HCl 1,250 mg/ (Dextrose) 250 mls @ 166.667 mls/hr IVPB Q12H [facility]; Protocol Last Admin: 02/16/19 17:39 Dose: 166.667 mls/hr Piperacillin Sod/Tazobactam (Sod 3.375 gm/ Dextrose) 50 mls @ 100 mls/hr IVPB Q8H-IV [facility] Last Admin: 02/16/19 19:47 Dose: 100 mls/hr Insulin Aspart (Novolog Vial Sliding Scale -) 1 vial SQ ACHS [facility]; Protocol Last Admin: 02/16/19 23:18 Dose: 8 units Insulin Detemir (Levemir Vial) 15 units SQ BID@0700,2200 [facility] Last Admin: 02/16/19 23:16 Dose: 15 units Lisinopril (Prinivil) 10 mg PO DAILY [facility] Last Admin: 02/16/19 10:08 Dose: 10 mg Metoprolol Tartrate (Lopressor -) 25 mg PO BID [facility] Last Admin: 02/16/19 23:16 Dose: 25 mg Metoprolol Tartrate (Lopressor Injection -) 5 mg IVPB Q4H PRN PRN Reason: HYPERTENSION Ondansetron HCl (Zofran Injection) 4 mg IVPUSH Q4H PRN PRN Reason: NAUSEA AND/OR VOMITING Polyethylene Glycol (Miralax (For Daily Use) -) 17 gm PO BID [facility] Last Admin: 02/16/19 23:18 Dose: Not Given Rivaroxaban (Xarelto) 15 mg PO BIDWM [facility] Last Admin: 02/16/19 17:39 Dose: 15 mg - Objective Vital Signs: Vital Signs Temperature 98.4 F 02/16/19 17:24 Pulse Rate 98 H 02/16/19 17:24 Respiratory Rate 20 02/16/19 17:24 Blood Pressure 124/72 02/16/19 17:24 O2 Sat by Pulse Oximetry (%) 99 02/16/19 09:00 Labs: CBC, BMP 02/14/19 06:00 02/12/19 06:30 INR, PTT INR 1.34 (0.83-1.09) H 02/08/19 05:45 Fibrinogen 297.0 mg/dL (238-498) 02/02/19 08:50 Problem List - Problems (1) Diabetic foot ulcer Code(s): E11.621 - TYPE 2 DIABETES MELLITUS WITH FOOT ULCER; L97.509 - NON- PRESSURE CHRONIC ULCER OTH PRT UNSP FOOT W UNSP SEVERITY (2) Diabetes type 2, uncontrolled Code(s): E11.65 - TYPE 2 DIABETES MELLITUS WITH HYPERGLYCEMIA (3) Hypertension Code(s): I10 - ESSENTIAL (PRIMARY) HYPERTENSION (4) CAD (coronary artery disease) Code(s): I25.10 - ATHSCL HEART DISEASE OF [place] CORONARY ARTERY W/O ANG PCTRS (5) HLD (hyperlipidemia) Code(s): E78.5 - HYPERLIPIDEMIA, UNSPECIFIED (6) PAD (peripheral artery disease) Code(s): I73.9 - PERIPHERAL VASCULAR DISEASE, UNSPECIFIED
[2019-02-17] MEDS ORDERED: PIPERACILLIN/TAZOBACTAM 3.375 GM VIAL IVPB ONE ×3 (02:25→17:43)
[2019-02-17] MEDS ORDERED: DEXTROSE 5%-WATER - 50 ML IVPB ONE ×3 (02:25→17:43)
[2019-02-17] MEDS: PIPERACILLIN/TAZOB 3.375 GM 3.375 GM in DEXTROSE 5%-WATER - 50 ML IVPB SCH ×3 (02:28→17:51)
[2019-02-17] MEDS ORDERED: PT OWN MED DRAWER 7, Y5N ONE ×2 (04:08→16:12)
[2019-02-17] MEDS: VANCOMYCIN 1,250 MG in DEXTROSE 5%-WATER - 250 ML IVPB SCH ×2 (04:11→16:19)
[2019-02-17] MEDS: DOCUSATE SODIUM 100 MG CAPSULE (FP) PO SCH ×3 (06:29→22:25)
[2019-02-17] MEDS: INSULIN (LEVEMIR) 100 UNITS/ML UNITS SQ SCH ×2 (06:37→22:30)
[2019-02-17] MEDS: INSULIN SLIDING SCALE (NOVOLOG) 1 VIAL SQ SCH ×4 (06:38→22:31)
[2019-02-17 08:39] LABS: EOS % 3.4 % (0-4.5); HEMATOCRIT 27.6 % (35.4-49); HEMOGLOBIN 9.1 GM/dL (11.7-16.9); LYMPH % 24.7 % (8-40); MCH 26.1 pg (25.7-33.7); MCHC 33.1 g/dl (32.0-35.9); MEAN CELL VOLUME 78.9 fl (80-96); MEAN PLT VOLUME 6.4 fl (7.5-11.1); MONO % 7.4 % (3.8-10.2); NEUT % 63.5 % (42.8-82.8); PLATELET COUNT 1086 K/MM3 (134-434); RDW 14.6 % (11.9-15.9); WHITE BLOOD COUNT 11.2 K/mm3 (4.0-10.0)
[2019-02-17 08:50] LABS: ALBUMIN 2.4 g/dl (3.4-5.0); BILIRUBIN,TOTAL 0.3 mg/dL (0.2-1); BLOOD UREA NITROGEN 15.6 mg/dL (7-18); CALCIUM 9.4 mg/dL (8.5-10.1); CREATININE 1.2 mg/dL (0.55-1.3); POTASSIUM 4.9 mmol/L (3.5-5.1); TOT PROT 7.9 g/dl (6.4-8.2)
[2019-02-17] MEDS: METOPROLOL TARTRATE 25 MG TABLET (FP) PO SCH ×2 (09:11→22:25)
[2019-02-17] MEDS: LISINOPRIL 10 MG TABLET (FP) PO SCH (09:11)
[2019-02-17] MEDS: ASPIRIN 81 MG CHEWABLE TABLETS PO SCH (09:11)
[2019-02-17] MEDS: RIVAROXABAN 15 MG TABLET PO SCH ×2 (09:12→17:52)
[2019-02-17] MEDS: POLYETHYLENE GLYCOL 3350 119 GM BTL PO SCH ×2 (09:16→22:34)
--- NOTE | 2019-02-17 09:21 | PN ---
Progress Note, Physician History of Present Illness: stable no new issues - Current Medication List Current Medications: Active Medications Acetaminophen (Tylenol -) 650 mg PO Q4H PRN PRN Reason: FEVER Last Admin: 02/08/19 14:25 Dose: 650 mg Aspirin (Asa -) 81 mg PO DAILY [facility] Last Admin: 02/17/19 09:11 Dose: 81 mg Atorvastatin Calcium (Lipitor -) 40 mg PO HS [facility] Last Admin: 02/16/19 23:16 Dose: 40 mg Dexamethasone Sodium Phosphate (Decadron Injection -) 4 mg IVPUSH ONCE PRN PRN Reason: NAUSEA AND/OR VOMITING Diphenhydramine HCl (Benadryl Injection -) 12.5 mg IVPUSH ONCE PRN PRN Reason: FOR ITCHING Docusate Sodium (Colace -) 100 mg PO TID [facility] Last Admin: 02/17/19 06:29 Dose: Not Given Vancomycin HCl 1,250 mg/ (Dextrose) 250 mls @ 166.667 mls/hr IVPB Q12H [facility]; Protocol Last Admin: 02/17/19 04:11 Dose: 166.667 mls/hr Piperacillin Sod/Tazobactam (Sod 3.375 gm/ Dextrose) 50 mls @ 100 mls/hr IVPB Q8H-IV [facility] Last Admin: 02/17/19 09:12 Dose: 100 mls/hr Insulin Aspart (Novolog Vial Sliding Scale -) 1 vial SQ ACHS [facility]; Protocol Last Admin: 02/17/19 06:38 Dose: 6 units Insulin Detemir (Levemir Vial) 15 units SQ BID@0700,2200 [facility] Last Admin: 02/17/19 06:37 Dose: 15 units Lisinopril (Prinivil) 10 mg PO DAILY [facility] Last Admin: 02/17/19 09:11 Dose: 10 mg Metoprolol Tartrate (Lopressor -) 25 mg PO BID [facility] Last Admin: 02/17/19 09:11 Dose: 25 mg Metoprolol Tartrate (Lopressor Injection -) 5 mg IVPB Q4H PRN PRN Reason: HYPERTENSION Ondansetron HCl (Zofran Injection) 4 mg IVPUSH Q4H PRN PRN Reason: NAUSEA AND/OR VOMITING Polyethylene Glycol (Miralax (For Daily Use) -) 17 gm PO BID [facility] Last Admin: 02/17/19 09:16 Dose: Not Given Rivaroxaban (Xarelto) 15 mg PO BIDWM [facility] Last Admin: 02/17/19 09:12 Dose: 15 mg - Objective Vital Signs: Vital Signs Temperature 97.6 F 02/17/19 06:00 Pulse Rate 88 02/17/19 06:00 Respiratory Rate 20 02/17/19 06:00 Blood Pressure 104/65 02/17/19 06:00 O2 Sat by Pulse Oximetry (%) 99 02/16/19 09:00 Constitutional: Yes: No Distress, Calm Cardiovascular: Yes: S1, S2 Respiratory: Yes: Regular, CTA Bilaterally Gastrointestinal: Yes: Normal Bowel Sounds, Soft Musculoskeletal: Yes: WNL Extremities: Yes: Other Wound/Incision: Yes: Dressing Dry and Intact Neurological: Yes: Alert, Oriented Psychiatric: Yes: Alert, Oriented Labs: CBC, BMP 02/17/19 06:35 02/17/19 06:35 INR, PTT INR 1.34 (0.83-1.09) H 02/08/19 05:45 Fibrinogen 297.0 mg/dL (238-498) 02/02/19 08:50 Assessment/Plan Assessment/Plan Problem List - Problems (1) Arterial occlusion Code(s): I70.90 - UNSPECIFIED ATHEROSCLEROSIS (2) CAD (coronary artery disease) Code(s): I25.10 - ATHSCL HEART DISEASE OF [place] CORONARY ARTERY W/O ANG PCTRS (3) H/O heart artery stent Code(s): Z95.5 - PRESENCE OF CORONARY ANGIOPLASTY IMPLANT AND GRAFT (4) HLD (hyperlipidemia) Code(s): E78.5 - HYPERLIPIDEMIA, UNSPECIFIED (5) Hematuria Code(s): R31.9 - HEMATURIA, UNSPECIFIED (6) Obesity Code(s): E66.9 - OBESITY, UNSPECIFIED (7) PAD (peripheral artery disease) Code(s): I73.9 - PERIPHERAL VASCULAR DISEASE, UNSPECIFIED (8) Right leg pain Code(s): M79.604 - PAIN IN RIGHT LEG (9) Smokes cigarettes Code(s): F17.210 - NICOTINE DEPENDENCE, CIGARETTES, UNCOMPLICATED (10) Diabetes type 2, uncontrolled Code(s): E11.65 - TYPE 2 DIABETES MELLITUS WITH HYPERGLYCEMIA (11) Hypertension Code(s): I10 - ESSENTIAL (PRIMARY) HYPERTENSION Assessment/Plan 49 y.o. male with PMH of DVT, RLE arterial occlusion s/p TPA (has not been taking Xarelto due to lack of insurance coverage), obesity, CAD s/p stent, CHF, HTN, HLD, DM presented with c/o severe RLE pain x 1 wk and foot feeling cold. Noted to have Rt popliteal and tibial arterial occlusion and initially underwent thrombolysis but then subsequently had SFA angioplasty with stent and tibial artery angioplasty on 01/25/19. Pt noted to have increasing wbc count since yesterday and mild temp elevation to 99.3F. +recent hematuria Leukocytosis RLE popliteal and tibial artery occlusion s/p angioplasty/stent Hematuria Hx of RLE arterial occlusion s/p TPA CAD s/p stent CHF DM HTN HLD Obesity plan continue current mgmt physio wound care rest as per the team abx
--- NOTE | 2019-02-17 16:38 | PN ---
Progress Note, Physician - Current Medication List Current Medications: Active Medications Acetaminophen (Tylenol -) 650 mg PO Q4H PRN PRN Reason: FEVER Last Admin: 02/08/19 14:25 Dose: 650 mg Aspirin (Asa -) 81 mg PO DAILY [facility] Last Admin: 02/17/19 09:11 Dose: 81 mg Atorvastatin Calcium (Lipitor -) 40 mg PO HS [facility] Last Admin: 02/16/19 23:16 Dose: 40 mg Dexamethasone Sodium Phosphate (Decadron Injection -) 4 mg IVPUSH ONCE PRN PRN Reason: NAUSEA AND/OR VOMITING Diphenhydramine HCl (Benadryl Injection -) 12.5 mg IVPUSH ONCE PRN PRN Reason: FOR ITCHING Docusate Sodium (Colace -) 100 mg PO TID [facility] Last Admin: 02/17/19 14:12 Dose: Not Given Vancomycin HCl 1,250 mg/ (Dextrose) 250 mls @ 166.667 mls/hr IVPB Q12H [facility]; Protocol Last Admin: 02/17/19 16:19 Dose: 166.667 mls/hr Piperacillin Sod/Tazobactam (Sod 3.375 gm/ Dextrose) 50 mls @ 100 mls/hr IVPB Q8H-IV [facility] Last Admin: 02/17/19 09:12 Dose: 100 mls/hr Insulin Aspart (Novolog Vial Sliding Scale -) 1 vial SQ ACHS [facility]; Protocol Last Admin: 02/17/19 13:16 Dose: 8 units Insulin Detemir (Levemir Vial) 15 units SQ BID@0700,2200 [facility] Last Admin: 02/17/19 06:37 Dose: 15 units Lisinopril (Prinivil) 10 mg PO DAILY [facility] Last Admin: 02/17/19 09:11 Dose: 10 mg Metoprolol Tartrate (Lopressor -) 25 mg PO BID [facility] Last Admin: 02/17/19 09:11 Dose: 25 mg Metoprolol Tartrate (Lopressor Injection -) 5 mg IVPB Q4H PRN PRN Reason: HYPERTENSION Ondansetron HCl (Zofran Injection) 4 mg IVPUSH Q4H PRN PRN Reason: NAUSEA AND/OR VOMITING Polyethylene Glycol (Miralax (For Daily Use) -) 17 gm PO BID [facility] Last Admin: 02/17/19 09:16 Dose: Not Given Rivaroxaban (Xarelto) 15 mg PO BIDWM [facility] Last Admin: 02/17/19 09:12 Dose: 15 mg - Objective Vital Signs: Vital Signs Temperature 98.5 F 02/17/19 14:00 Pulse Rate 93 H 02/17/19 14:00 Respiratory Rate 20 02/17/19 14:00 Blood Pressure 110/64 02/17/19 14:00 O2 Sat by Pulse Oximetry (%) 99 02/16/19 09:00 Labs: CBC, BMP 02/17/19 06:35 02/17/19 06:35 INR, PTT INR 1.34 (0.83-1.09) H 02/08/19 05:45 Fibrinogen 297.0 mg/dL (238-498) 02/02/19 08:50 Problem List - Problems (1) Diabetic foot ulcer Code(s): E11.621 - TYPE 2 DIABETES MELLITUS WITH FOOT ULCER; L97.509 - NON- PRESSURE CHRONIC ULCER OTH PRT UNSP FOOT W UNSP SEVERITY (2) Diabetes type 2, uncontrolled Code(s): E11.65 - TYPE 2 DIABETES MELLITUS WITH HYPERGLYCEMIA (3) Hypertension Code(s): I10 - ESSENTIAL (PRIMARY) HYPERTENSION (4) CAD (coronary artery disease) Code(s): I25.10 - ATHSCL HEART DISEASE OF [place] CORONARY ARTERY W/O ANG PCTRS (5) HLD (hyperlipidemia) Code(s): E78.5 - HYPERLIPIDEMIA, UNSPECIFIED (6) PAD (peripheral artery disease) Code(s): I73.9 - PERIPHERAL VASCULAR DISEASE, UNSPECIFIED
[2019-02-17] MEDS: ATORVASTATIN CA 40 MG TABLET (FP) PO SCH (22:25)
[2019-02-18] MEDS ORDERED: PIPERACILLIN/TAZOBACTAM 3.375 GM VIAL IVPB ONE ×3 (01:08→17:21)
[2019-02-18] MEDS ORDERED: DEXTROSE 5%-WATER - 50 ML IVPB ONE ×3 (01:08→17:21)
[2019-02-18] MEDS: PIPERACILLIN/TAZOB 3.375 GM 3.375 GM in DEXTROSE 5%-WATER - 50 ML IVPB SCH ×3 (01:19→17:24)
[2019-02-18] MEDS: VANCOMYCIN 1,250 MG in DEXTROSE 5%-WATER - 250 ML IVPB SCH ×2 (04:20→16:15)
[2019-02-18] MEDS ORDERED: PT OWN MED DRAWER 7, Y5N ONE (05:48)
[2019-02-18] MEDS: DOCUSATE SODIUM 100 MG CAPSULE (FP) PO SCH ×3 (05:50→22:16)
[2019-02-18] MEDS: INSULIN SLIDING SCALE (NOVOLOG) 1 VIAL SQ SCH ×4 (06:13→22:28)
[2019-02-18] MEDS: INSULIN (LEVEMIR) 100 UNITS/ML UNITS SQ SCH ×2 (06:58→22:26)
[2019-02-18] MEDS: LISINOPRIL 10 MG TABLET (FP) PO SCH (10:07)
[2019-02-18] MEDS: METOPROLOL TARTRATE 25 MG TABLET (FP) PO SCH ×2 (10:07→22:26)
[2019-02-18] MEDS: ASPIRIN 81 MG CHEWABLE TABLETS PO SCH (10:07)
[2019-02-18] MEDS: POLYETHYLENE GLYCOL 3350 119 GM BTL PO SCH ×2 (10:13→22:16)
[2019-02-18] MEDS: RIVAROXABAN 15 MG TABLET PO SCH ×2 (10:27→17:24)
--- NOTE | 2019-02-18 13:41 | PN ---
Progress Note, Physician History of Present Illness: stable no new issues - Current Medication List Current Medications: Active Medications Acetaminophen (Tylenol -) 650 mg PO Q4H PRN PRN Reason: FEVER Last Admin: 02/08/19 14:25 Dose: 650 mg Aspirin (Asa -) 81 mg PO DAILY [facility] Last Admin: 02/18/19 10:07 Dose: 81 mg Atorvastatin Calcium (Lipitor -) 40 mg PO HS [facility] Last Admin: 02/17/19 22:25 Dose: 40 mg Dexamethasone Sodium Phosphate (Decadron Injection -) 4 mg IVPUSH ONCE PRN PRN Reason: NAUSEA AND/OR VOMITING Diphenhydramine HCl (Benadryl Injection -) 12.5 mg IVPUSH ONCE PRN PRN Reason: FOR ITCHING Docusate Sodium (Colace -) 100 mg PO TID [facility] Last Admin: 02/18/19 05:50 Dose: 100 mg Vancomycin HCl 1,250 mg/ (Dextrose) 250 mls @ 166.667 mls/hr IVPB Q12H [facility]; Protocol Last Admin: 02/18/19 04:20 Dose: 166.667 mls/hr Piperacillin Sod/Tazobactam (Sod 3.375 gm/ Dextrose) 50 mls @ 100 mls/hr IVPB Q8H-IV [facility] Last Admin: 02/18/19 10:06 Dose: 100 mls/hr Insulin Aspart (Novolog Vial Sliding Scale -) 1 vial SQ ACHS [facility]; Protocol Last Admin: 02/18/19 12:42 Dose: 6 units Insulin Detemir (Levemir Vial) 15 units SQ BID@0700,2200 [facility] Last Admin: 02/18/19 06:58 Dose: 15 units Lisinopril (Prinivil) 10 mg PO DAILY [facility] Last Admin: 02/18/19 10:07 Dose: 10 mg Metoprolol Tartrate (Lopressor -) 25 mg PO BID [facility] Last Admin: 02/18/19 10:07 Dose: 25 mg Metoprolol Tartrate (Lopressor Injection -) 5 mg IVPB Q4H PRN PRN Reason: HYPERTENSION Ondansetron HCl (Zofran Injection) 4 mg IVPUSH Q4H PRN PRN Reason: NAUSEA AND/OR VOMITING Polyethylene Glycol (Miralax (For Daily Use) -) 17 gm PO BID [facility] Last Admin: 02/18/19 10:13 Dose: 17 gm Rivaroxaban (Xarelto) 15 mg PO BIDWM [facility] Last Admin: 02/18/19 10:27 Dose: 15 mg - Objective Vital Signs: Vital Signs Temperature 98.2 F 02/18/19 06:52 Pulse Rate 91 H 02/18/19 06:52 Respiratory Rate 18 02/18/19 06:52 Blood Pressure 107/61 02/18/19 06:52 O2 Sat by Pulse Oximetry (%) 99 02/16/19 09:00 Constitutional: Yes: No Distress, Calm Cardiovascular: Yes: S1, S2 Respiratory: Yes: Regular, CTA Bilaterally Gastrointestinal: Yes: Normal Bowel Sounds, Soft Musculoskeletal: Yes: Other Extremities: Yes: Other Wound/Incision: Yes: Dressing Dry and Intact Neurological: Yes: Alert, Oriented Psychiatric: Yes: Alert, Oriented Labs: CBC, BMP 02/17/19 06:35 02/17/19 06:35 INR, PTT INR 1.34 (0.83-1.09) H 02/08/19 05:45 Fibrinogen 297.0 mg/dL (238-498) 02/02/19 08:50 Assessment/Plan Assessment/Plan Problem List - Problems (1) Arterial occlusion Code(s): I70.90 - UNSPECIFIED ATHEROSCLEROSIS (2) CAD (coronary artery disease) Code(s): I25.10 - ATHSCL HEART DISEASE OF [place] CORONARY ARTERY W/O ANG PCTRS (3) H/O heart artery stent Code(s): Z95.5 - PRESENCE OF CORONARY ANGIOPLASTY IMPLANT AND GRAFT (4) HLD (hyperlipidemia) Code(s): E78.5 - HYPERLIPIDEMIA, UNSPECIFIED (5) Hematuria Code(s): R31.9 - HEMATURIA, UNSPECIFIED (6) Obesity Code(s): E66.9 - OBESITY, UNSPECIFIED (7) PAD (peripheral artery disease) Code(s): I73.9 - PERIPHERAL VASCULAR DISEASE, UNSPECIFIED (8) Right leg pain Code(s): M79.604 - PAIN IN RIGHT LEG (9) Smokes cigarettes Code(s): F17.210 - NICOTINE DEPENDENCE, CIGARETTES, UNCOMPLICATED (10) Diabetes type 2, uncontrolled Code(s): E11.65 - TYPE 2 DIABETES MELLITUS WITH HYPERGLYCEMIA (11) Hypertension Code(s): I10 - ESSENTIAL (PRIMARY) HYPERTENSION Assessment/Plan 49 y.o. male with PMH of DVT, RLE arterial occlusion s/p TPA (has not been taking Xarelto due to lack of insurance coverage), obesity, CAD s/p stent, CHF, HTN, HLD, DM presented with c/o severe RLE pain x 1 wk and foot feeling cold. Noted to have Rt popliteal and tibial arterial occlusion and initially underwent thrombolysis but then subsequently had SFA angioplasty with stent and tibial artery angioplasty on 01/25/19. Pt noted to have increasing wbc count since yesterday and mild temp elevation to 99.3F. +recent hematuria Leukocytosis RLE popliteal and tibial artery occlusion s/p angioplasty/stent Hematuria Hx of RLE arterial occlusion s/p TPA CAD s/p stent CHF DM HTN HLD Obesity plan continue current mgmt physio wound care rest as per the team abx
--- NOTE | 2019-02-18 21:43 | PN ---
Progress Note, Physician History of Present Illness: No new complaints - Current Medication List Current Medications: Active Medications Acetaminophen (Tylenol -) 650 mg PO Q4H PRN PRN Reason: FEVER Last Admin: 02/08/19 14:25 Dose: 650 mg Aspirin (Asa -) 81 mg PO DAILY [facility] Last Admin: 02/18/19 10:07 Dose: 81 mg Atorvastatin Calcium (Lipitor -) 40 mg PO HS [facility] Last Admin: 02/17/19 22:25 Dose: 40 mg Dexamethasone Sodium Phosphate (Decadron Injection -) 4 mg IVPUSH ONCE PRN PRN Reason: NAUSEA AND/OR VOMITING Diphenhydramine HCl (Benadryl Injection -) 12.5 mg IVPUSH ONCE PRN PRN Reason: FOR ITCHING Docusate Sodium (Colace -) 100 mg PO TID [facility] Last Admin: 02/18/19 14:04 Dose: 100 mg Vancomycin HCl 1,250 mg/ (Dextrose) 250 mls @ 166.667 mls/hr IVPB Q12H [facility]; Protocol Last Admin: 02/18/19 16:15 Dose: 166.667 mls/hr Piperacillin Sod/Tazobactam (Sod 3.375 gm/ Dextrose) 50 mls @ 100 mls/hr IVPB Q8H-IV [facility] Last Admin: 02/18/19 17:24 Dose: 100 mls/hr Insulin Aspart (Novolog Vial Sliding Scale -) 1 vial SQ ACHS [facility]; Protocol Last Admin: 02/18/19 17:29 Dose: 10 units Insulin Detemir (Levemir Vial) 15 units SQ BID@0700,2200 [facility] Last Admin: 02/18/19 06:58 Dose: 15 units Lisinopril (Prinivil) 10 mg PO DAILY [facility] Last Admin: 02/18/19 10:07 Dose: 10 mg Metoprolol Tartrate (Lopressor -) 25 mg PO BID [facility] Last Admin: 02/18/19 10:07 Dose: 25 mg Metoprolol Tartrate (Lopressor Injection -) 5 mg IVPB Q4H PRN PRN Reason: HYPERTENSION Ondansetron HCl (Zofran Injection) 4 mg IVPUSH Q4H PRN PRN Reason: NAUSEA AND/OR VOMITING Polyethylene Glycol (Miralax (For Daily Use) -) 17 gm PO BID [facility] Last Admin: 02/18/19 10:13 Dose: 17 gm Rivaroxaban (Xarelto) 15 mg PO BIDWM [facility] Last Admin: 02/18/19 17:24 Dose: 15 mg - Objective Vital Signs: Vital Signs Temperature 98.3 F 02/18/19 17:37 Pulse Rate 99 H 02/18/19 17:37 Respiratory Rate 18 02/18/19 17:37 Blood Pressure 103/56 L 02/18/19 17:37 O2 Sat by Pulse Oximetry (%) 99 02/16/19 09:00 Neck: Yes: WNL, Supple Cardiovascular: Yes: WNL, Regular Rate and Rhythm Respiratory: Yes: WNL, Regular, CTA Bilaterally Gastrointestinal: Yes: WNL, Normal Bowel Sounds, Soft Extremities: Yes: Other (Rt foot MTC amputation) Labs: CBC, BMP 02/17/19 06:35 02/17/19 06:35 INR, PTT INR 1.34 (0.83-1.09) H 02/08/19 05:45 Fibrinogen 297.0 mg/dL (238-498) 02/02/19 08:50 Problem List - Problems (1) Diabetic foot ulcer Assessment/Plan: Gangrene S/P Rt foot MT amputation Cont IV antibxs DC planning for 2 more weeks of IV antibxs Code(s): E11.621 - TYPE 2 DIABETES MELLITUS WITH FOOT ULCER; L97.509 - NON- PRESSURE CHRONIC ULCER OTH PRT UNSP FOOT W UNSP SEVERITY (2) Diabetes type 2, uncontrolled Assessment/Plan: Cont sliding scale w/ coverage Code(s): E11.65 - TYPE 2 DIABETES MELLITUS WITH HYPERGLYCEMIA (3) Hypertension Assessment/Plan: BP stable Cont metoprolol Code(s): I10 - ESSENTIAL (PRIMARY) HYPERTENSION (4) CAD (coronary artery disease) Assessment/Plan: Cont asa Code(s): I25.10 - ATHSCL HEART DISEASE OF [place] CORONARY ARTERY W/O ANG PCTRS (5) HLD (hyperlipidemia) Assessment/Plan: Cont lipitor Code(s): E78.5 - HYPERLIPIDEMIA, UNSPECIFIED (6) PAD (peripheral artery disease) Assessment/Plan: S/p angioplasty and stent placement Cont xarelto Code(s): I73.9 - PERIPHERAL VASCULAR DISEASE, UNSPECIFIED
[2019-02-18] MEDS: ATORVASTATIN CA 40 MG TABLET (FP) PO SCH (22:26)
[2019-02-19] MEDS ORDERED: DEXTROSE 5%-WATER - 50 ML IVPB ONE ×3 (02:17→16:24)
[2019-02-19] MEDS ORDERED: PIPERACILLIN/TAZOBACTAM 3.375 GM VIAL IVPB ONE ×3 (02:17→16:24)
[2019-02-19] MEDS: PIPERACILLIN/TAZOB 3.375 GM 3.375 GM in DEXTROSE 5%-WATER - 50 ML IVPB SCH ×4 (02:25→17:35)
[2019-02-19] MEDS ORDERED: PT OWN MED DRAWER 7, Y5N ONE ×3 (04:03→18:36)
[2019-02-19] MEDS: VANCOMYCIN 1,250 MG in DEXTROSE 5%-WATER - 250 ML IVPB SCH ×2 (04:41→15:49)
[2019-02-19] MEDS: DOCUSATE SODIUM 100 MG CAPSULE (FP) PO SCH ×3 (06:19→21:38)
[2019-02-19] MEDS: INSULIN (LEVEMIR) 100 UNITS/ML UNITS SQ SCH ×2 (06:36→21:37)
[2019-02-19] MEDS: INSULIN SLIDING SCALE (NOVOLOG) 1 VIAL SQ SCH ×4 (06:38→21:37)
--- NOTE | 2019-02-19 07:48 | PN ---
Progress Note (short form) - Note Progress Note: Podiatry F/U: Seen/evaluated at bedside NAD. Pain controlled, denies F/V/N/C/SOB/CP. Afebrile. S/p right transmetatarsal amputation. Doing well. Wonders when he will be able to go home. ASHTYN: R foot: pedal pulses dopplerable, TG wnl. TMA site with sutures intact, no dehiscence noted, no purulent drainage, no fluctuance, no streaking cellulitis, no signs of active infection. There is an eschar dorsal central flap and dorsal surface of the skin where blister had been prior, no bone exposed. no sign so finfection; healing well Imp: 49 year old diabetic, PVD male s/p right transmetatarsal amputation xeroform DSD to the foot minimal WB surgically stable and clear from pod standpoint will need to f/u with Dr. Xie in wound care center upon d/c will loosely follow case and patient can have outpatient follow up
--- NOTE | 2019-02-19 09:07 | PN ---
Progress Note, Physician History of Present Illness: stable no new issues - Current Medication List Current Medications: Active Medications Acetaminophen (Tylenol -) 650 mg PO Q4H PRN PRN Reason: FEVER Last Admin: 02/08/19 14:25 Dose: 650 mg Aspirin (Asa -) 81 mg PO DAILY [facility] Last Admin: 02/18/19 10:07 Dose: 81 mg Atorvastatin Calcium (Lipitor -) 40 mg PO HS [facility] Last Admin: 02/18/19 22:26 Dose: 40 mg Dexamethasone Sodium Phosphate (Decadron Injection -) 4 mg IVPUSH ONCE PRN PRN Reason: NAUSEA AND/OR VOMITING Diphenhydramine HCl (Benadryl Injection -) 12.5 mg IVPUSH ONCE PRN PRN Reason: FOR ITCHING Docusate Sodium (Colace -) 100 mg PO TID [facility] Last Admin: 02/19/19 06:19 Dose: Not Given Vancomycin HCl 1,250 mg/ (Dextrose) 250 mls @ 166.667 mls/hr IVPB Q12H [facility]; Protocol Last Admin: 02/19/19 04:41 Dose: 166.667 mls/hr Piperacillin Sod/Tazobactam (Sod 3.375 gm/ Dextrose) 50 mls @ 100 mls/hr IVPB Q8H-IV [facility] Last Admin: 02/19/19 02:25 Dose: 100 mls/hr Insulin Aspart (Novolog Vial Sliding Scale -) 1 vial SQ ACHS [facility]; Protocol Last Admin: 02/19/19 06:38 Dose: 8 units Insulin Detemir (Levemir Vial) 15 units SQ BID@0700,2200 [facility] Last Admin: 02/19/19 06:36 Dose: 15 units Lisinopril (Prinivil) 10 mg PO DAILY [facility] Last Admin: 02/18/19 10:07 Dose: 10 mg Metoprolol Tartrate (Lopressor -) 25 mg PO BID [facility] Last Admin: 02/18/19 22:26 Dose: 25 mg Metoprolol Tartrate (Lopressor Injection -) 5 mg IVPB Q4H PRN PRN Reason: HYPERTENSION Ondansetron HCl (Zofran Injection) 4 mg IVPUSH Q4H PRN PRN Reason: NAUSEA AND/OR VOMITING Polyethylene Glycol (Miralax (For Daily Use) -) 17 gm PO BID [facility] Last Admin: 02/18/19 22:16 Dose: Not Given Rivaroxaban (Xarelto) 15 mg PO BIDWM [facility] Last Admin: 02/18/19 17:24 Dose: 15 mg - Objective Vital Signs: Vital Signs Temperature 98.8 F 02/18/19 22:00 Pulse Rate 106 H 02/18/19 22:00 Respiratory Rate 18 02/18/19 22:00 Blood Pressure 112/67 02/18/19 22:00 O2 Sat by Pulse Oximetry (%) 99 02/16/19 09:00 Constitutional: Yes: No Distress, Calm Cardiovascular: Yes: S1, S2 Respiratory: Yes: Regular, CTA Bilaterally Gastrointestinal: Yes: Normal Bowel Sounds, Soft Musculoskeletal: Yes: WNL Extremities: Yes: Other Wound/Incision: Yes: Dressing Dry and Intact Neurological: Yes: Alert, Oriented Psychiatric: Yes: Alert, Oriented Labs: CBC, BMP 02/17/19 06:35 02/17/19 06:35 INR, PTT INR 1.34 (0.83-1.09) H 02/08/19 05:45 Fibrinogen 297.0 mg/dL (238-498) 02/02/19 08:50 Assessment/Plan Assessment/Plan Problem List - Problems (1) Arterial occlusion Code(s): I70.90 - UNSPECIFIED ATHEROSCLEROSIS (2) CAD (coronary artery disease) Code(s): I25.10 - ATHSCL HEART DISEASE OF [place] CORONARY ARTERY W/O ANG PCTRS (3) H/O heart artery stent Code(s): Z95.5 - PRESENCE OF CORONARY ANGIOPLASTY IMPLANT AND GRAFT (4) HLD (hyperlipidemia) Code(s): E78.5 - HYPERLIPIDEMIA, UNSPECIFIED (5) Hematuria Code(s): R31.9 - HEMATURIA, UNSPECIFIED (6) Obesity Code(s): E66.9 - OBESITY, UNSPECIFIED (7) PAD (peripheral artery disease) Code(s): I73.9 - PERIPHERAL VASCULAR DISEASE, UNSPECIFIED (8) Right leg pain Code(s): M79.604 - PAIN IN RIGHT LEG (9) Smokes cigarettes Code(s): F17.210 - NICOTINE DEPENDENCE, CIGARETTES, UNCOMPLICATED (10) Diabetes type 2, uncontrolled Code(s): E11.65 - TYPE 2 DIABETES MELLITUS WITH HYPERGLYCEMIA (11) Hypertension Code(s): I10 - ESSENTIAL (PRIMARY) HYPERTENSION Assessment/Plan 49 y.o. male with PMH of DVT, RLE arterial occlusion s/p TPA (has not been taking Xarelto due to lack of insurance coverage), obesity, CAD s/p stent, CHF, HTN, HLD, DM presented with c/o severe RLE pain x 1 wk and foot feeling cold. Noted to have Rt popliteal and tibial arterial occlusion and initially underwent thrombolysis but then subsequently had SFA angioplasty with stent and tibial artery angioplasty on 01/25/19. Pt noted to have increasing wbc count since yesterday and mild temp elevation to 99.3F. +recent hematuria Leukocytosis RLE popliteal and tibial artery occlusion s/p angioplasty/stent Hematuria Hx of RLE arterial occlusion s/p TPA CAD s/p stent CHF DM HTN HLD Obesity plan continue current mgmt physio wound care rest as per the team abx will need a total of 5 weeks of abx
[2019-02-19] MEDS: LISINOPRIL 10 MG TABLET (FP) PO SCH (10:07)
[2019-02-19] MEDS: METOPROLOL TARTRATE 25 MG TABLET (FP) PO SCH ×2 (10:07→21:38)
[2019-02-19] MEDS: RIVAROXABAN 15 MG TABLET PO SCH ×2 (10:07→16:31)
[2019-02-19] MEDS: ASPIRIN 81 MG CHEWABLE TABLETS PO SCH (10:07)
[2019-02-19] MEDS: POLYETHYLENE GLYCOL 3350 119 GM BTL PO SCH ×2 (10:08→21:38)
[2019-02-19] MEDS ORDERED: INSULIN (NOVOLOG) ASPART 100 UNITS/ML 10ML VIAL ONE (21:03)
[2019-02-19] MEDS: ATORVASTATIN CA 40 MG TABLET (FP) PO SCH (21:38)
--- NOTE | 2019-02-19 21:53 | PN ---
Progress Note, Physician - Current Medication List Current Medications: Active Medications Acetaminophen (Tylenol -) 650 mg PO Q4H PRN PRN Reason: FEVER Last Admin: 02/08/19 14:25 Dose: 650 mg Aspirin (Asa -) 81 mg PO DAILY [facility] Last Admin: 02/19/19 10:07 Dose: 81 mg Atorvastatin Calcium (Lipitor -) 40 mg PO HS [facility] Last Admin: 02/19/19 21:38 Dose: 40 mg Dexamethasone Sodium Phosphate (Decadron Injection -) 4 mg IVPUSH ONCE PRN PRN Reason: NAUSEA AND/OR VOMITING Diphenhydramine HCl (Benadryl Injection -) 12.5 mg IVPUSH ONCE PRN PRN Reason: FOR ITCHING Docusate Sodium (Colace -) 100 mg PO TID [facility] Last Admin: 02/19/19 21:38 Dose: 100 mg Vancomycin HCl 1,250 mg/ (Dextrose) 250 mls @ 166.667 mls/hr IVPB Q12H [facility]; Protocol Last Admin: 02/19/19 15:49 Dose: 166.667 mls/hr Piperacillin Sod/Tazobactam (Sod 3.375 gm/ Dextrose) 50 mls @ 100 mls/hr IVPB Q8H-IV [facility] Last Admin: 02/19/19 17:35 Dose: 100 mls/hr Insulin Aspart (Novolog Vial Sliding Scale -) 1 vial SQ ACHS [facility]; Protocol Last Admin: 02/19/19 21:37 Dose: 6 units Insulin Detemir (Levemir Vial) 15 units SQ BID@0700,2200 [facility] Last Admin: 02/19/19 21:37 Dose: 15 units Lisinopril (Prinivil) 10 mg PO DAILY [facility] Last Admin: 02/19/19 10:07 Dose: 10 mg Metoprolol Tartrate (Lopressor -) 25 mg PO BID [facility] Last Admin: 02/19/19 21:38 Dose: 25 mg Metoprolol Tartrate (Lopressor Injection -) 5 mg IVPB Q4H PRN PRN Reason: HYPERTENSION Ondansetron HCl (Zofran Injection) 4 mg IVPUSH Q4H PRN PRN Reason: NAUSEA AND/OR VOMITING Polyethylene Glycol (Miralax (For Daily Use) -) 17 gm PO BID [facility] Last Admin: 02/19/19 21:38 Dose: Not Given Rivaroxaban (Xarelto) 15 mg PO BIDWM [facility] Last Admin: 02/19/19 16:31 Dose: 15 mg - Objective Vital Signs: Vital Signs Temperature 98.3 F 02/19/19 13:00 Pulse Rate 90 02/19/19 13:00 Respiratory Rate 20 02/19/19 13:00 Blood Pressure 124/79 02/19/19 13:00 O2 Sat by Pulse Oximetry (%) 98 02/19/19 09:00 Labs: CBC, BMP 02/17/19 06:35 02/17/19 06:35 INR, PTT INR 1.34 (0.83-1.09) H 02/08/19 05:45 Fibrinogen 297.0 mg/dL (238-498) 02/02/19 08:50 Problem List - Problems (1) Diabetic foot ulcer Code(s): E11.621 - TYPE 2 DIABETES MELLITUS WITH FOOT ULCER; L97.509 - NON- PRESSURE CHRONIC ULCER OTH PRT UNSP FOOT W UNSP SEVERITY (2) Diabetes type 2, uncontrolled Code(s): E11.65 - TYPE 2 DIABETES MELLITUS WITH HYPERGLYCEMIA (3) Hypertension Code(s): I10 - ESSENTIAL (PRIMARY) HYPERTENSION (4) CAD (coronary artery disease) Code(s): I25.10 - ATHSCL HEART DISEASE OF [place] CORONARY ARTERY W/O ANG PCTRS (5) HLD (hyperlipidemia) Code(s): E78.5 - HYPERLIPIDEMIA, UNSPECIFIED (6) PAD (peripheral artery disease) Code(s): I73.9 - PERIPHERAL VASCULAR DISEASE, UNSPECIFIED
[2019-02-20] MEDS ORDERED: DEXTROSE 5%-WATER - 50 ML IVPB ONE ×2 (00:13→17:26)
[2019-02-20] MEDS ORDERED: PIPERACILLIN/TAZOBACTAM 3.375 GM VIAL IVPB ONE ×3 (00:13→17:26)
[2019-02-20] MEDS: PIPERACILLIN/TAZOB 3.375 GM 3.375 GM in DEXTROSE 5%-WATER - 50 ML IVPB SCH ×3 (03:03→18:00)
[2019-02-20] MEDS: VANCOMYCIN 1,250 MG in DEXTROSE 5%-WATER - 250 ML IVPB SCH ×2 (04:58→15:18)
[2019-02-20] MEDS: DOCUSATE SODIUM 100 MG CAPSULE (FP) PO SCH ×3 (05:50→22:08)
[2019-02-20] MEDS: INSULIN SLIDING SCALE (NOVOLOG) 1 VIAL SQ SCH ×4 (05:59→22:09)
[2019-02-20] MEDS: INSULIN (LEVEMIR) 100 UNITS/ML UNITS SQ SCH ×2 (05:59→22:09)
[2019-02-20] MEDS ORDERED: PT OWN MED DRAWER 7, Y5N ONE ×2 (06:34→08:50)
[2019-02-20] MEDS ORDERED: INSULIN (NOVOLOG) ASPART 100 UNITS/ML 10ML VIAL ONE ×2 (06:35→21:18)
[2019-02-20] MEDS ORDERED: INSULIN (LEVEMIR) 100 UNITS/ML UNITS SQ ONE (06:35)
--- NOTE | 2019-02-20 08:14 | PN ---
Progress Note, Physician Chief Complaint: COVERING FOR DR DORA FLORENTINO EVENTS AND NOTES REVIEWED - Current Medication List Current Medications: Active Medications Acetaminophen (Tylenol -) 650 mg PO Q4H PRN PRN Reason: FEVER Last Admin: 02/08/19 14:25 Dose: 650 mg Aspirin (Asa -) 81 mg PO DAILY [facility] Last Admin: 02/19/19 10:07 Dose: 81 mg Atorvastatin Calcium (Lipitor -) 40 mg PO HS [facility] Last Admin: 02/19/19 21:38 Dose: 40 mg Dexamethasone Sodium Phosphate (Decadron Injection -) 4 mg IVPUSH ONCE PRN PRN Reason: NAUSEA AND/OR VOMITING Diphenhydramine HCl (Benadryl Injection -) 12.5 mg IVPUSH ONCE PRN PRN Reason: FOR ITCHING Docusate Sodium (Colace -) 100 mg PO TID [facility] Last Admin: 02/20/19 05:50 Dose: 100 mg Vancomycin HCl 1,250 mg/ (Dextrose) 250 mls @ 166.667 mls/hr IVPB Q12H [facility]; Protocol Last Admin: 02/20/19 04:58 Dose: Not Given Piperacillin Sod/Tazobactam (Sod 3.375 gm/ Dextrose) 50 mls @ 100 mls/hr IVPB Q8H-IV [facility] Last Admin: 02/20/19 03:03 Dose: Not Given Insulin Aspart (Novolog Vial Sliding Scale -) 1 vial SQ ACHS [facility]; Protocol Last Admin: 02/20/19 05:59 Dose: 6 units Insulin Detemir (Levemir Vial) 15 units SQ BID@0700,2200 [facility] Last Admin: 02/20/19 05:59 Dose: 15 units Lisinopril (Prinivil) 10 mg PO DAILY [facility] Last Admin: 02/19/19 10:07 Dose: 10 mg Metoprolol Tartrate (Lopressor -) 25 mg PO BID [facility] Last Admin: 02/19/19 21:38 Dose: 25 mg Metoprolol Tartrate (Lopressor Injection -) 5 mg IVPB Q4H PRN PRN Reason: HYPERTENSION Ondansetron HCl (Zofran Injection) 4 mg IVPUSH Q4H PRN PRN Reason: NAUSEA AND/OR VOMITING Polyethylene Glycol (Miralax (For Daily Use) -) 17 gm PO BID [facility] Last Admin: 02/19/19 21:38 Dose: Not Given Rivaroxaban (Xarelto) 15 mg PO BIDWM [facility] Last Admin: 02/19/19 16:31 Dose: 15 mg - Objective Vital Signs: Vital Signs Temperature 98 F 02/20/19 06:00 Pulse Rate 82 02/20/19 06:00 Respiratory Rate 203 H 02/20/19 06:00 Blood Pressure 118/76 02/20/19 06:00 O2 Sat by Pulse Oximetry (%) 98 02/19/19 21:00 Constitutional: Yes: No Distress Cardiovascular: Yes: Regular Rate and Rhythm Respiratory: Yes: WNL Gastrointestinal: Yes: Soft, Abdomen, Obese Musculoskeletal: Yes: Other Extremities: Yes: Deformity Integumentary: Yes: Rash, Skin Tear, Venous Stasis Changes Wound/Incision: Yes: Dressing Dry and Intact Labs: CBC, BMP 02/17/19 06:35 02/17/19 06:35 INR, PTT INR 1.34 (0.83-1.09) H 02/08/19 05:45 Fibrinogen 297.0 mg/dL (238-498) 02/02/19 08:50 Problem List - Problems (1) Anxiety and depression Code(s): F41.9 - ANXIETY DISORDER, UNSPECIFIED; F32.9 - MAJOR DEPRESSIVE DISORDER, SINGLE EPISODE, UNSPECIFIED (2) Arterial occlusion Code(s): I70.90 - UNSPECIFIED ATHEROSCLEROSIS (3) Diabetes Code(s): E11.9 - TYPE 2 DIABETES MELLITUS WITHOUT COMPLICATIONS (4) Diabetic foot ulcer Code(s): E11.621 - TYPE 2 DIABETES MELLITUS WITH FOOT ULCER; L97.509 - NON- PRESSURE CHRONIC ULCER OTH PRT UNSP FOOT W UNSP SEVERITY (5) H/O heart artery stent Code(s): Z95.5 - PRESENCE OF CORONARY ANGIOPLASTY IMPLANT AND GRAFT (6) HLD (hyperlipidemia) Code(s): E78.5 - HYPERLIPIDEMIA, UNSPECIFIED Assessment/Plan IV ABX PER ID ID FOLLOW UP ADA/SSI AC ON [facility] AND [facility] PAIN CONTROL SNF PLACEMENT
[2019-02-20] MEDS: RIVAROXABAN 15 MG TABLET PO SCH ×2 (09:48→18:00)
[2019-02-20] MEDS: METOPROLOL TARTRATE 25 MG TABLET (FP) PO SCH ×2 (09:48→22:08)
[2019-02-20] MEDS: ASPIRIN 81 MG CHEWABLE TABLETS PO SCH (09:48)
[2019-02-20] MEDS: LISINOPRIL 10 MG TABLET (FP) PO SCH (09:48)
[2019-02-20] MEDS: POLYETHYLENE GLYCOL 3350 119 GM BTL PO SCH ×2 (09:50→22:09)
--- NOTE | 2019-02-20 11:16 | PN ---
Progress Note, Physician History of Present Illness: stable refused to take abx - Current Medication List Current Medications: Active Medications Acetaminophen (Tylenol -) 650 mg PO Q4H PRN PRN Reason: FEVER Last Admin: 02/08/19 14:25 Dose: 650 mg Aspirin (Asa -) 81 mg PO DAILY [facility] Last Admin: 02/20/19 09:48 Dose: 81 mg Atorvastatin Calcium (Lipitor -) 40 mg PO HS [facility] Last Admin: 02/19/19 21:38 Dose: 40 mg Dexamethasone Sodium Phosphate (Decadron Injection -) 4 mg IVPUSH ONCE PRN PRN Reason: NAUSEA AND/OR VOMITING Diphenhydramine HCl (Benadryl Injection -) 12.5 mg IVPUSH ONCE PRN PRN Reason: FOR ITCHING Docusate Sodium (Colace -) 100 mg PO TID [facility] Last Admin: 02/20/19 05:50 Dose: 100 mg Vancomycin HCl 1,250 mg/ (Dextrose) 250 mls @ 166.667 mls/hr IVPB Q12H [facility]; Protocol Last Admin: 02/20/19 04:58 Dose: Not Given Piperacillin Sod/Tazobactam (Sod 3.375 gm/ Dextrose) 50 mls @ 100 mls/hr IVPB Q8H-IV [facility] Last Admin: 02/20/19 09:50 Dose: Not Given Insulin Aspart (Novolog Vial Sliding Scale -) 1 vial SQ ACHS [facility]; Protocol Last Admin: 02/20/19 05:59 Dose: 6 units Insulin Detemir (Levemir Vial) 15 units SQ BID@0700,2200 [facility] Last Admin: 02/20/19 05:59 Dose: 15 units Lisinopril (Prinivil) 10 mg PO DAILY [facility] Last Admin: 02/20/19 09:48 Dose: 10 mg Metoprolol Tartrate (Lopressor -) 25 mg PO BID [facility] Last Admin: 02/20/19 09:48 Dose: 25 mg Metoprolol Tartrate (Lopressor Injection -) 5 mg IVPB Q4H PRN PRN Reason: HYPERTENSION Ondansetron HCl (Zofran Injection) 4 mg IVPUSH Q4H PRN PRN Reason: NAUSEA AND/OR VOMITING Polyethylene Glycol (Miralax (For Daily Use) -) 17 gm PO BID [facility] Last Admin: 09/10/19 09:50 Dose: 17 gm Rivaroxaban (Xarelto) 15 mg PO BIDWM [facility] Last Admin: 02/20/19 09:48 Dose: 15 mg - Objective Vital Signs: Vital Signs Temperature 98.5 F 02/20/19 09:55 Pulse Rate 80 02/20/19 09:55 Respiratory Rate 20 02/20/19 09:55 Blood Pressure 133/72 02/20/19 09:55 O2 Sat by Pulse Oximetry (%) 98 02/20/19 09:00 Constitutional: Yes: No Distress, Calm Cardiovascular: Yes: S1, S2 Respiratory: Yes: Regular, CTA Bilaterally Musculoskeletal: Yes: WNL Extremities: Yes: Other Wound/Incision: Yes: Dressing Dry and Intact Neurological: Yes: Alert, Oriented Psychiatric: Yes: Alert, Oriented Labs: CBC, BMP 02/17/19 06:35 02/17/19 06:35 INR, PTT INR 1.34 (0.83-1.09) H 02/08/19 05:45 Fibrinogen 297.0 mg/dL (238-498) 02/02/19 08:50 Assessment/Plan Assessment/Plan Problem List - Problems (1) Arterial occlusion Code(s): I70.90 - UNSPECIFIED ATHEROSCLEROSIS (2) CAD (coronary artery disease) Code(s): I25.10 - ATHSCL HEART DISEASE OF [place] CORONARY ARTERY W/O ANG PCTRS (3) H/O heart artery stent Code(s): Z95.5 - PRESENCE OF CORONARY ANGIOPLASTY IMPLANT AND GRAFT (4) HLD (hyperlipidemia) Code(s): E78.5 - HYPERLIPIDEMIA, UNSPECIFIED (5) Hematuria Code(s): R31.9 - HEMATURIA, UNSPECIFIED (6) Obesity Code(s): E66.9 - OBESITY, UNSPECIFIED (7) PAD (peripheral artery disease) Code(s): I73.9 - PERIPHERAL VASCULAR DISEASE, UNSPECIFIED (8) Right leg pain Code(s): M79.604 - PAIN IN RIGHT LEG (9) Smokes cigarettes Code(s): F17.210 - NICOTINE DEPENDENCE, CIGARETTES, UNCOMPLICATED (10) Diabetes type 2, uncontrolled Code(s): E11.65 - TYPE 2 DIABETES MELLITUS WITH HYPERGLYCEMIA (11) Hypertension Code(s): I10 - ESSENTIAL (PRIMARY) HYPERTENSION Assessment/Plan 49 y.o. male with PMH of DVT, RLE arterial occlusion s/p TPA (has not been taking Xarelto due to lack of insurance coverage), obesity, CAD s/p stent, CHF, HTN, HLD, DM presented with c/o severe RLE pain x 1 wk and foot feeling cold. Noted to have Rt popliteal and tibial arterial occlusion and initially underwent thrombolysis but then subsequently had SFA angioplasty with stent and tibial artery angioplasty on 01/25/19. Pt noted to have increasing wbc count since yesterday and mild temp elevation to 99.3F. +recent hematuria Leukocytosis RLE popliteal and tibial artery occlusion s/p angioplasty/stent Hematuria Hx of RLE arterial occlusion s/p TPA CAD s/p stent CHF DM HTN HLD Obesity plan continue current mgmt physio wound care rest as per the team abx will need a total of 5 weeks of abx patient refusing to take abx
--- NOTE | 2019-02-20 17:55 | PN ---
Progress Note (short form) - Note Progress Note: Podiatry F/U: Seen/evaluated at bedside NAD. Pain well controlled, denies F/V/N/C/SOB/CP. Afebrile. S/p R TMA. Feels depressed, refusing abx currently. ASHTYN: R foot: sutures coapted with small area of dehiscence, no purulent drainage, no fluctuance, no streaking cellulitis, no signs of infection. Eschar noted dorsal lateral foot, no probing, no purulence, no fluctuance, no cellulitis no signs of infection. Minimal tenderness to palpation. Imp: 49 year old diabetic, PVD male s/p R TMA 1. DSD R foot 2. Continue local care 3. PWB to heel right foot 4. Upon discharge will f/u with me in wound healing center. Pipe Xie DPM
[2019-02-20] MEDS: ATORVASTATIN CA 40 MG TABLET (FP) PO SCH (22:08)
[2019-02-21] MEDS ORDERED: DEXTROSE 5%-WATER - 50 ML IVPB ONE ×4 (02:39→20:28)
[2019-02-21] MEDS ORDERED: PIPERACILLIN/TAZOBACTAM 3.375 GM VIAL IVPB ONE ×4 (02:39→20:27)
[2019-02-21] MEDS ORDERED: PT OWN MED DRAWER 7, Y5N ONE ×3 (02:39→20:29)
[2019-02-21] MEDS: PIPERACILLIN/TAZOB 3.375 GM 3.375 GM in DEXTROSE 5%-WATER - 50 ML IVPB SCH ×3 (02:56→19:33)
[2019-02-21] MEDS: VANCOMYCIN 1,250 MG in DEXTROSE 5%-WATER - 250 ML IVPB SCH ×2 (02:59→16:28)
[2019-02-21] MEDS: DOCUSATE SODIUM 100 MG CAPSULE (FP) PO SCH ×3 (06:30→21:44)
[2019-02-21] MEDS: INSULIN (LEVEMIR) 100 UNITS/ML UNITS SQ SCH ×2 (06:31→21:38)
[2019-02-21] MEDS: INSULIN SLIDING SCALE (NOVOLOG) 1 VIAL SQ SCH ×4 (06:31→21:42)
[2019-02-21] MEDS ORDERED: INSULIN (NOVOLOG) ASPART 100 UNITS/ML 10ML VIAL ONE ×2 (07:08→11:44)
[2019-02-21] MEDS ORDERED: INSULIN (LEVEMIR) 100 UNITS/ML UNITS SQ ONE (07:08)
[2019-02-21] MEDS: RIVAROXABAN 15 MG TABLET PO SCH ×2 (08:48→18:11)
[2019-02-21] MEDS: LISINOPRIL 10 MG TABLET (FP) PO SCH (09:34)
[2019-02-21] MEDS: METOPROLOL TARTRATE 25 MG TABLET (FP) PO SCH ×2 (09:34→21:35)
[2019-02-21] MEDS: ASPIRIN 81 MG CHEWABLE TABLETS PO SCH (09:34)
[2019-02-21] MEDS: POLYETHYLENE GLYCOL 3350 119 GM BTL PO SCH ×2 (09:39→21:35)
--- NOTE | 2019-02-21 11:22 | PN ---
Progress Note, Physician History of Present Illness: stable refused to take abx again even after explaining - Current Medication List Current Medications: Active Medications Acetaminophen (Tylenol -) 650 mg PO Q4H PRN PRN Reason: FEVER Last Admin: 02/08/19 14:25 Dose: 650 mg Aspirin (Asa -) 81 mg PO DAILY [facility] Last Admin: 02/21/19 09:34 Dose: 81 mg Atorvastatin Calcium (Lipitor -) 40 mg PO HS [facility] Last Admin: 02/20/19 22:08 Dose: 40 mg Dexamethasone Sodium Phosphate (Decadron Injection -) 4 mg IVPUSH ONCE PRN PRN Reason: NAUSEA AND/OR VOMITING Diphenhydramine HCl (Benadryl Injection -) 12.5 mg IVPUSH ONCE PRN PRN Reason: FOR ITCHING Docusate Sodium (Colace -) 100 mg PO TID [facility] Last Admin: 02/21/19 06:30 Dose: 100 mg Vancomycin HCl 1,250 mg/ (Dextrose) 250 mls @ 166.667 mls/hr IVPB Q12H [facility]; Protocol Last Admin: 02/21/19 02:59 Dose: 166.667 mls/hr Piperacillin Sod/Tazobactam (Sod 3.375 gm/ Dextrose) 50 mls @ 100 mls/hr IVPB Q8H-IV [facility] Last Admin: 02/21/19 09:34 Dose: 100 mls/hr Insulin Aspart (Novolog Vial Sliding Scale -) 1 vial SQ ACHS [facility]; Protocol Last Admin: 02/21/19 06:31 Dose: 6 units Insulin Detemir (Levemir Vial) 15 units SQ BID@0700,2200 [facility] Last Admin: 02/21/19 06:31 Dose: 15 units Lisinopril (Prinivil) 10 mg PO DAILY [facility] Last Admin: 02/21/19 09:34 Dose: 10 mg Metoprolol Tartrate (Lopressor -) 25 mg PO BID [facility] Last Admin: 02/21/19 09:34 Dose: 25 mg Metoprolol Tartrate (Lopressor Injection -) 5 mg IVPB Q4H PRN PRN Reason: HYPERTENSION Ondansetron HCl (Zofran Injection) 4 mg IVPUSH Q4H PRN PRN Reason: NAUSEA AND/OR VOMITING Polyethylene Glycol (Miralax (For Daily Use) -) 17 gm PO BID [facility] Last Admin: 02/21/19 09:39 Dose: Not Given Rivaroxaban (Xarelto) 15 mg PO BIDWM [facility] Last Admin: 02/21/19 08:48 Dose: 15 mg - Objective Vital Signs: Vital Signs Temperature 98.8 F 02/21/19 06:00 Pulse Rate 80 02/21/19 06:00 Respiratory Rate 20 02/21/19 06:00 Blood Pressure 120/78 02/21/19 06:00 O2 Sat by Pulse Oximetry (%) 98 02/20/19 21:00 Constitutional: Yes: No Distress, Calm Cardiovascular: Yes: S1, S2 Respiratory: Yes: Regular, CTA Bilaterally Gastrointestinal: Yes: Normal Bowel Sounds, Soft Musculoskeletal: Yes: WNL Extremities: Yes: Other Wound/Incision: Yes: Dressing Dry and Intact Neurological: Yes: Alert, Oriented Psychiatric: Yes: Alert, Oriented Labs: CBC, BMP 02/17/19 06:35 02/17/19 06:35 INR, PTT INR 1.34 (0.83-1.09) H 02/08/19 05:45 Fibrinogen 297.0 mg/dL (238-498) 02/02/19 08:50 Assessment/Plan Assessment/Plan Problem List - Problems (1) Arterial occlusion Code(s): I70.90 - UNSPECIFIED ATHEROSCLEROSIS (2) CAD (coronary artery disease) Code(s): I25.10 - ATHSCL HEART DISEASE OF [place] CORONARY ARTERY W/O ANG PCTRS (3) H/O heart artery stent Code(s): Z95.5 - PRESENCE OF CORONARY ANGIOPLASTY IMPLANT AND GRAFT (4) HLD (hyperlipidemia) Code(s): E78.5 - HYPERLIPIDEMIA, UNSPECIFIED (5) Hematuria Code(s): R31.9 - HEMATURIA, UNSPECIFIED (6) Obesity Code(s): E66.9 - OBESITY, UNSPECIFIED (7) PAD (peripheral artery disease) Code(s): I73.9 - PERIPHERAL VASCULAR DISEASE, UNSPECIFIED (8) Right leg pain Code(s): M79.604 - PAIN IN RIGHT LEG (9) Smokes cigarettes Code(s): F17.210 - NICOTINE DEPENDENCE, CIGARETTES, UNCOMPLICATED (10) Diabetes type 2, uncontrolled Code(s): E11.65 - TYPE 2 DIABETES MELLITUS WITH HYPERGLYCEMIA (11) Hypertension Code(s): I10 - ESSENTIAL (PRIMARY) HYPERTENSION Assessment/Plan 49 y.o. male with PMH of DVT, RLE arterial occlusion s/p TPA (has not been taking Xarelto due to lack of insurance coverage), obesity, CAD s/p stent, CHF, HTN, HLD, DM presented with c/o severe RLE pain x 1 wk and foot feeling cold. Noted to have Rt popliteal and tibial arterial occlusion and initially underwent thrombolysis but then subsequently had SFA angioplasty with stent and tibial artery angioplasty on 01/25/19. Pt noted to have increasing wbc count since yesterday and mild temp elevation to 99.3F. +recent hematuria Leukocytosis RLE popliteal and tibial artery occlusion s/p angioplasty/stent Hematuria Hx of RLE arterial occlusion s/p TPA CAD s/p stent CHF DM HTN HLD Obesity plan continue current mgmt physio wound care rest as per the team abx will need a total of 5 weeks of abx patient refusing to take abx even after explaining it to him if patient does not want to take abx then there is not further course
--- NOTE | 2019-02-21 13:39 | PN ---
Physical Exam: SUBJECTIVE: Patient seen and examined. Patient has no complaints. He is frustrated because he feels like he isn't being told what he is being treated for. OBJECTIVE: Vital Signs Period Temp Pulse Resp BP Sys/Miller Pulse Ox Last 24 Hr 98.3 F-98.8 F 80-95 20-20 105-138/70-78 98 GENERAL: The patient is awake, alert, and fully oriented, in no acute distress. LUNGS: Breath sounds equal, clear to auscultation bilaterally, no wheezes, no crackles, no accessory muscle use. HEART: Regular rate and rhythm, S1, S2 without murmur, rub or gallop. ABDOMEN: Obese, soft, nontender, nondistended, normoactive bowel sounds, no guarding, no rebound, no hepatosplenomegaly, no masses. EXTREMITIES: 2+ pulses, warm, well-perfused, no edema. Laboratory Results - last 24 hr 02/20/19 02/20/19 02/21/19 17:41 22:04 06:29 POC Glucometer 231 272 173 02/21/19 11:42 POC Glucometer 181 Active Medications Generic Name Dose Route Start Last Admin Trade Name Freq PRN Reason Stop Dose Admin Acetaminophen 650 mg 02/08/19 11:06 02/08/19 14:25 Tylenol - PO 650 mg Q4H PRN Administration FEVER Aspirin 81 mg 02/09/19 10:00 02/21/19 09:34 Asa - PO 81 mg DAILY MARYJO Administration Atorvastatin Calcium 40 mg 02/08/19 22:00 02/20/19 22:08 Lipitor - PO 40 mg HS MARYJO Administration Dexamethasone Sodium Phosphate 4 mg 02/08/19 11:06 Decadron Injection - IVPUSH ONCE PRN NAUSEA AND/OR VOMITING Diphenhydramine HCl 12.5 mg 02/08/19 11:06 Benadryl Injection - IVPUSH ONCE PRN FOR ITCHING Docusate Sodium 100 mg 02/08/19 14:00 02/21/19 06:30 Colace - PO 100 mg TID MARYJO Administration Vancomycin HCl 1,250 mg/ 250 mls @ 166.667 mls/hr 02/10/19 16:00 02/21/19 02: 59 Dextrose IVPB 166.667 mls/hr Q12H MARYJO Administration Protocol Piperacillin Sod/Tazobactam 50 mls @ 100 mls/hr 02/15/19 18:30 02/21/19 09:34 Sod 3.375 gm/ Dextrose IVPB 100 mls/hr Q8H-IV MARYJO Administration Insulin Aspart 1 vial 02/08/19 16:30 02/21/19 11:55 Novolog Vial Sliding Scale - SQ 6 units ACHS MARYJO Administration Protocol Insulin Detemir 15 units 02/08/19 22:00 02/21/19 06:31 Levemir Vial SQ 15 units BID@0700,2200 MARYJO Administration Lisinopril 10 mg 02/09/19 10:00 02/21/19 09:34 Prinivil PO 10 mg DAILY MARYJO Administration Metoprolol Tartrate 25 mg 02/08/19 22:00 02/21/19 09:34 Lopressor - PO 25 mg BID MARYJO Administration Metoprolol Tartrate 5 mg 02/08/19 11:06 Lopressor Injection - IVPB Q4H PRN HYPERTENSION Ondansetron HCl 4 mg 02/08/19 11:06 Zofran Injection IVPUSH Q4H PRN NAUSEA AND/OR VOMITING Polyethylene Glycol 17 gm 02/08/19 22:00 02/21/19 09:39 Miralax (For Daily Use) - PO Not Given BID [facility] Rivaroxaban 15 mg 02/08/19 11:00 02/21/19 08:48 Xarelto PO 15 mg BIDWM MARYJO Administration ASSESSMENT/PLAN: 1. 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 CAD, history of stent - Continue aspirin, Lopressor, Lipitor 3. Type 2 DM - Continue Levemir, Novolog sliding scale 4. Anxiety and depression 5. Hyperlipidemia - Continue Lipitor 6. HTN - Continue lisinopril, Lopressor 7. Obesity with BMI 38.0 Visit type - Emergency Visit Emergency Visit: Yes ED Registration Date: 01/24/19 Care time: The patient presented to the Emergency Department on the above date and was hospitalized for further evaluation of their emergent condition. - New Patient This patient is new to me today: Yes Date on this admission: 02/21/19 - Critical Care Critical Care patient: No - Discharge Referral Referred to [facility] Med P.C.: No
[2019-02-21] MEDS: ATORVASTATIN CA 40 MG TABLET (FP) PO SCH (21:34)
[2019-02-22] MEDS: PIPERACILLIN/TAZOB 3.375 GM 3.375 GM in DEXTROSE 5%-WATER - 50 ML IVPB SCH ×3 (01:25→17:56)
[2019-02-22] MEDS: VANCOMYCIN 1,250 MG in DEXTROSE 5%-WATER - 250 ML IVPB SCH ×2 (03:00→16:22)
[2019-02-22] MEDS: DOCUSATE SODIUM 100 MG CAPSULE (FP) PO SCH ×3 (06:13→21:40)
[2019-02-22] MEDS: INSULIN (LEVEMIR) 100 UNITS/ML UNITS SQ SCH ×2 (06:15→21:39)
[2019-02-22] MEDS: INSULIN SLIDING SCALE (NOVOLOG) 1 VIAL SQ SCH ×4 (06:16→21:40)
[2019-02-22] MEDS ORDERED: PIPERACILLIN/TAZOBACTAM 3.375 GM VIAL IVPB ONE ×2 (08:16→17:07)
[2019-02-22] MEDS ORDERED: DEXTROSE 5%-WATER - 50 ML IVPB ONE ×2 (08:17→17:07)
[2019-02-22] MEDS: RIVAROXABAN 15 MG TABLET PO SCH ×2 (08:20→17:14)
[2019-02-22 08:45] LABS: HEMATOCRIT 30.1 % (35.4-49); HEMOGLOBIN 9.9 GM/dL (11.7-16.9); MCH 25.9 pg (25.7-33.7); MCHC 33.1 g/dl (32.0-35.9); MEAN CELL VOLUME 78.4 fl (80-96); MEAN PLT VOLUME 6.6 fl (7.5-11.1); PLATELET COUNT 762 K/MM3 (134-434); RBC 3.84 M/mm3 (4.00-5.60); RDW 15.3 % (11.9-15.9); WHITE BLOOD COUNT 8.5 K/mm3 (4.0-10.0)
[2019-02-22 08:54] LABS: BLOOD UREA NITROGEN 13.3 mg/dL (7-18); CALCIUM 9.2 mg/dL (8.5-10.1); CREATININE 1.1 mg/dL (0.55-1.3); POTASSIUM 4.4 mmol/L (3.5-5.1)
[2019-02-22] MEDS: ASPIRIN 81 MG CHEWABLE TABLETS PO SCH (09:51)
[2019-02-22] MEDS: METOPROLOL TARTRATE 25 MG TABLET (FP) PO SCH ×2 (09:51→21:40)
[2019-02-22] MEDS: LISINOPRIL 10 MG TABLET (FP) PO SCH (09:51)
[2019-02-22] MEDS: POLYETHYLENE GLYCOL 3350 119 GM BTL PO SCH ×2 (09:52→21:40)
[2019-02-22] MEDS ORDERED: INSULIN (NOVOLOG) ASPART 100 UNITS/ML 10ML VIAL ONE ×2 (11:06→17:38)
[2019-02-22] MEDS ORDERED: PT OWN MED DRAWER 7, Y5N ONE (16:18)
[2019-02-22] MEDS: ATORVASTATIN CA 40 MG TABLET (FP) PO SCH (21:40)
--- NOTE | 2019-02-22 22:41 | PN ---
Progress Note, Physician - Current Medication List Current Medications: Active Medications Acetaminophen (Tylenol -) 650 mg PO Q4H PRN PRN Reason: FEVER Last Admin: 02/08/19 14:25 Dose: 650 mg Aspirin (Asa -) 81 mg PO DAILY [facility] Last Admin: 02/22/19 09:51 Dose: 81 mg Atorvastatin Calcium (Lipitor -) 40 mg PO HS [facility] Last Admin: 02/22/19 21:40 Dose: 40 mg Dexamethasone Sodium Phosphate (Decadron Injection -) 4 mg IVPUSH ONCE PRN PRN Reason: NAUSEA AND/OR VOMITING Diphenhydramine HCl (Benadryl Injection -) 12.5 mg IVPUSH ONCE PRN PRN Reason: FOR ITCHING Docusate Sodium (Colace -) 100 mg PO TID [facility] Last Admin: 02/22/19 21:40 Dose: 100 mg Vancomycin HCl 1,250 mg/ (Dextrose) 250 mls @ 166.667 mls/hr IVPB Q12H [facility]; Protocol Last Admin: 02/22/19 16:22 Dose: 166.667 mls/hr Insulin Aspart (Novolog Vial Sliding Scale -) 1 vial SQ ACHS [facility]; Protocol Last Admin: 02/22/19 21:40 Dose: 6 units Insulin Detemir (Levemir Vial) 15 units SQ BID@0700,2200 [facility] Last Admin: 02/22/19 21:39 Dose: 15 units Lisinopril (Prinivil) 10 mg PO DAILY [facility] Last Admin: 02/22/19 09:51 Dose: 10 mg Metoprolol Tartrate (Lopressor -) 25 mg PO BID [facility] Last Admin: 02/22/19 21:40 Dose: 25 mg Metoprolol Tartrate (Lopressor Injection -) 5 mg IVPB Q4H PRN PRN Reason: HYPERTENSION Ondansetron HCl (Zofran Injection) 4 mg IVPUSH Q4H PRN PRN Reason: NAUSEA AND/OR VOMITING Polyethylene Glycol (Miralax (For Daily Use) -) 17 gm PO BID [facility] Last Admin: 02/22/19 21:40 Dose: Not Given Rivaroxaban (Xarelto) 15 mg PO BIDWM [facility] Last Admin: 02/22/19 17:14 Dose: 15 mg - Objective Vital Signs: Vital Signs Temperature 97.7 F 09/12/19 16:30 Pulse Rate 96 H 02/22/19 16:30 Respiratory Rate 20 02/22/19 16:30 Blood Pressure 115/70 02/22/19 16:30 O2 Sat by Pulse Oximetry (%) 98 02/22/19 09:00 Labs: CBC, BMP 02/22/19 06:42 02/22/19 06:42 INR, PTT INR 1.34 (0.83-1.09) H 02/08/19 05:45 Fibrinogen 297.0 mg/dL (238-498) 02/02/19 08:50 Problem List - Problems (1) Diabetic foot ulcer Code(s): E11.621 - TYPE 2 DIABETES MELLITUS WITH FOOT ULCER; L97.509 - NON- PRESSURE CHRONIC ULCER OTH PRT UNSP FOOT W UNSP SEVERITY (2) Diabetes type 2, uncontrolled Code(s): E11.65 - TYPE 2 DIABETES MELLITUS WITH HYPERGLYCEMIA (3) Hypertension Code(s): I10 - ESSENTIAL (PRIMARY) HYPERTENSION (4) CAD (coronary artery disease) Code(s): I25.10 - ATHSCL HEART DISEASE OF [place] CORONARY ARTERY W/O ANG PCTRS (5) HLD (hyperlipidemia) Code(s): E78.5 - HYPERLIPIDEMIA, UNSPECIFIED (6) PAD (peripheral artery disease) Code(s): I73.9 - PERIPHERAL VASCULAR DISEASE, UNSPECIFIED
[2019-02-23] MEDS ORDERED: PT OWN MED DRAWER 7, Y5N ONE ×2 (01:27→15:09)
[2019-02-23] MEDS ORDERED: DEXTROSE 5%-WATER - 50 ML IVPB ONE ×3 (01:55→17:58)
[2019-02-23] MEDS ORDERED: PIPERACILLIN/TAZOBACTAM 3.375 GM VIAL IVPB ONE ×3 (01:55→17:58)
[2019-02-23] MEDS: PIPERACILLIN/TAZOB 3.375 GM 3.375 GM in DEXTROSE 5%-WATER - 50 ML IVPB SCH ×3 (02:55→17:59)
[2019-02-23] MEDS: VANCOMYCIN 1,250 MG in DEXTROSE 5%-WATER - 250 ML IVPB SCH ×2 (02:59→15:15)
[2019-02-23] MEDS: DOCUSATE SODIUM 100 MG CAPSULE (FP) PO SCH ×2 (06:43→15:15)
[2019-02-23] MEDS: INSULIN (LEVEMIR) 100 UNITS/ML UNITS SQ SCH (06:43)
[2019-02-23] MEDS: INSULIN SLIDING SCALE (NOVOLOG) 1 VIAL SQ SCH ×3 (06:44→18:00)
[2019-02-23] MEDS: ASPIRIN 81 MG CHEWABLE TABLETS PO SCH (10:18)
[2019-02-23] MEDS: LISINOPRIL 10 MG TABLET (FP) PO SCH (10:18)
[2019-02-23] MEDS: POLYETHYLENE GLYCOL 3350 119 GM BTL PO SCH (10:18)
[2019-02-23] MEDS: RIVAROXABAN 15 MG TABLET PO SCH ×2 (10:18→17:59)
[2019-02-23] MEDS: METOPROLOL TARTRATE 25 MG TABLET (FP) PO SCH (10:18)
[2019-02-23 11:29] VITALS: BMI 37.2
--- NOTE | 2019-02-23 12:03 | PN ---
Progress Note, Physician History of Present Illness: stable no new issues - Current Medication List Current Medications: Active Medications Acetaminophen (Tylenol -) 650 mg PO Q4H PRN PRN Reason: FEVER Last Admin: 02/08/19 14:25 Dose: 650 mg Aspirin (Asa -) 81 mg PO DAILY [facility] Last Admin: 02/23/19 10:18 Dose: 81 mg Atorvastatin Calcium (Lipitor -) 40 mg PO HS [facility] Last Admin: 02/22/19 21:40 Dose: 40 mg Dexamethasone Sodium Phosphate (Decadron Injection -) 4 mg IVPUSH ONCE PRN PRN Reason: NAUSEA AND/OR VOMITING Diphenhydramine HCl (Benadryl Injection -) 12.5 mg IVPUSH ONCE PRN PRN Reason: FOR ITCHING Docusate Sodium (Colace -) 100 mg PO TID [facility] Last Admin: 02/23/19 06:43 Dose: 100 mg Vancomycin HCl 1,250 mg/ (Dextrose) 250 mls @ 166.667 mls/hr IVPB Q12H [facility]; Protocol Last Admin: 02/23/19 02:59 Dose: 166.667 mls/hr Piperacillin Sod/Tazobactam (Sod 3.375 gm/ Dextrose) 50 mls @ 100 mls/hr IVPB Q8H-IV [facility] Stop: 02/23/19 18:29 Last Admin: 02/23/19 10:23 Dose: 100 mls/hr Insulin Aspart (Novolog Vial Sliding Scale -) 1 vial SQ ACHS [facility]; Protocol Last Admin: 02/23/19 06:44 Dose: 6 units Insulin Detemir (Levemir Vial) 15 units SQ BID@0700,2200 [facility] Last Admin: 02/23/19 06:43 Dose: 15 units Lisinopril (Prinivil) 10 mg PO DAILY [facility] Last Admin: 02/23/19 10:18 Dose: 10 mg Metoprolol Tartrate (Lopressor -) 25 mg PO BID [facility] Last Admin: 02/23/19 10:18 Dose: 25 mg Metoprolol Tartrate (Lopressor Injection -) 5 mg IVPB Q4H PRN PRN Reason: HYPERTENSION Ondansetron HCl (Zofran Injection) 4 mg IVPUSH Q4H PRN PRN Reason: NAUSEA AND/OR VOMITING Polyethylene Glycol (Miralax (For Daily Use) -) 17 gm PO BID [facility] Last Admin: 02/23/19 10:18 Dose: Not Given Rivaroxaban (Xarelto) 15 mg PO BIDWM [facility] Last Admin: 02/23/19 10:18 Dose: 15 mg - Objective Vital Signs: Vital Signs Temperature 98.4 F 02/23/19 10:27 Pulse Rate 104 H 02/23/19 10:27 Respiratory Rate 18 02/23/19 10:27 Blood Pressure 114/69 02/23/19 10:27 O2 Sat by Pulse Oximetry (%) 98 02/22/19 21:00 Constitutional: Yes: No Distress, Calm Cardiovascular: Yes: Regular Rate and Rhythm, S1, S2 Respiratory: Yes: Regular, CTA Bilaterally Gastrointestinal: Yes: Normal Bowel Sounds, Soft Musculoskeletal: Yes: WNL Extremities: Yes: Other Wound/Incision: Yes: Dressing Dry and Intact Neurological: Yes: Alert, Oriented Labs: CBC, BMP 02/22/19 06:42 02/22/19 06:42 INR, PTT INR 1.34 (0.83-1.09) H 02/08/19 05:45 Fibrinogen 297.0 mg/dL (238-498) 02/02/19 08:50 Assessment/Plan Assessment/Plan Problem List - Problems (1) Arterial occlusion Code(s): I70.90 - UNSPECIFIED ATHEROSCLEROSIS (2) CAD (coronary artery disease) Code(s): I25.10 - ATHSCL HEART DISEASE OF [place] CORONARY ARTERY W/O ANG PCTRS (3) H/O heart artery stent Code(s): Z95.5 - PRESENCE OF CORONARY ANGIOPLASTY IMPLANT AND GRAFT (4) HLD (hyperlipidemia) Code(s): E78.5 - HYPERLIPIDEMIA, UNSPECIFIED (5) Hematuria Code(s): R31.9 - HEMATURIA, UNSPECIFIED (6) Obesity Code(s): E66.9 - OBESITY, UNSPECIFIED (7) PAD (peripheral artery disease) Code(s): I73.9 - PERIPHERAL VASCULAR DISEASE, UNSPECIFIED (8) Right leg pain Code(s): M79.604 - PAIN IN RIGHT LEG (9) Smokes cigarettes Code(s): F17.210 - NICOTINE DEPENDENCE, CIGARETTES, UNCOMPLICATED (10) Diabetes type 2, uncontrolled Code(s): E11.65 - TYPE 2 DIABETES MELLITUS WITH HYPERGLYCEMIA (11) Hypertension Code(s): I10 - ESSENTIAL (PRIMARY) HYPERTENSION Assessment/Plan 49 y.o. male with PMH of DVT, RLE arterial occlusion s/p TPA (has not been taking Xarelto due to lack of insurance coverage), obesity, CAD s/p stent, CHF, HTN, HLD, DM presented with c/o severe RLE pain x 1 wk and foot feeling cold. Noted to have Rt popliteal and tibial arterial occlusion and initially underwent thrombolysis but then subsequently had SFA angioplasty with stent and tibial artery angioplasty on 01/25/19. Pt noted to have increasing wbc count since yesterday and mild temp elevation to 99.3F. +recent hematuria Leukocytosis RLE popliteal and tibial artery occlusion s/p angioplasty/stent Hematuria Hx of RLE arterial occlusion s/p TPA CAD s/p stent CHF DM HTN HLD Obesity plan continue current mgmt physio wound care rest as per the team abx will need a total of 5 weeks of abx patient refusing to take abx even after explaining it to him if patient does not want to take abx then there is not further course
--- NOTE | 2019-02-23 12:04 | PN ---
Progress Note, Physician History of Present Illness: stable no new issues agreeing to take abx - Current Medication List Current Medications: Active Medications Acetaminophen (Tylenol -) 650 mg PO Q4H PRN PRN Reason: FEVER Last Admin: 02/08/19 14:25 Dose: 650 mg Aspirin (Asa -) 81 mg PO DAILY [facility] Last Admin: 02/23/19 10:18 Dose: 81 mg Atorvastatin Calcium (Lipitor -) 40 mg PO HS [facility] Last Admin: 02/22/19 21:40 Dose: 40 mg Dexamethasone Sodium Phosphate (Decadron Injection -) 4 mg IVPUSH ONCE PRN PRN Reason: NAUSEA AND/OR VOMITING Diphenhydramine HCl (Benadryl Injection -) 12.5 mg IVPUSH ONCE PRN PRN Reason: FOR ITCHING Docusate Sodium (Colace -) 100 mg PO TID [facility] Last Admin: 02/23/19 06:43 Dose: 100 mg Vancomycin HCl 1,250 mg/ (Dextrose) 250 mls @ 166.667 mls/hr IVPB Q12H [facility]; Protocol Last Admin: 02/23/19 02:59 Dose: 166.667 mls/hr Piperacillin Sod/Tazobactam (Sod 3.375 gm/ Dextrose) 50 mls @ 100 mls/hr IVPB Q8H-IV [facility] Stop: 02/23/19 18:29 Last Admin: 02/23/19 10:23 Dose: 100 mls/hr Insulin Aspart (Novolog Vial Sliding Scale -) 1 vial SQ ACHS [facility]; Protocol Last Admin: 02/23/19 06:44 Dose: 6 units Insulin Detemir (Levemir Vial) 15 units SQ BID@0700,2200 [facility] Last Admin: 02/23/19 06:43 Dose: 15 units Lisinopril (Prinivil) 10 mg PO DAILY [facility] Last Admin: 02/23/19 10:18 Dose: 10 mg Metoprolol Tartrate (Lopressor -) 25 mg PO BID [facility] Last Admin: 02/23/19 10:18 Dose: 25 mg Metoprolol Tartrate (Lopressor Injection -) 5 mg IVPB Q4H PRN PRN Reason: HYPERTENSION Ondansetron HCl (Zofran Injection) 4 mg IVPUSH Q4H PRN PRN Reason: NAUSEA AND/OR VOMITING Polyethylene Glycol (Miralax (For Daily Use) -) 17 gm PO BID [facility] Last Admin: 02/23/19 10:18 Dose: Not Given Rivaroxaban (Xarelto) 15 mg PO BIDWM [facility] Last Admin: 02/23/19 10:18 Dose: 15 mg - Objective Vital Signs: Vital Signs Temperature 98.4 F 02/23/19 10:27 Pulse Rate 104 H 02/23/19 10:27 Respiratory Rate 18 02/23/19 10:27 Blood Pressure 114/69 02/23/19 10:27 O2 Sat by Pulse Oximetry (%) 98 02/22/19 21:00 Constitutional: Yes: No Distress, Calm Cardiovascular: Yes: S1, S2 Respiratory: Yes: Regular, CTA Bilaterally Gastrointestinal: Yes: Normal Bowel Sounds, Soft Musculoskeletal: Yes: WNL Extremities: Yes: Other Wound/Incision: Yes: Dressing Dry and Intact Neurological: Yes: Alert, Oriented Psychiatric: Yes: Alert, Oriented Labs: CBC, BMP 02/22/19 06:42 02/22/19 06:42 INR, PTT INR 1.34 (0.83-1.09) H 02/08/19 05:45 Fibrinogen 297.0 mg/dL (238-498) 02/02/19 08:50 Assessment/Plan Assessment/Plan Problem List - Problems (1) Arterial occlusion Code(s): I70.90 - UNSPECIFIED ATHEROSCLEROSIS (2) CAD (coronary artery disease) Code(s): I25.10 - ATHSCL HEART DISEASE OF [place] CORONARY ARTERY W/O ANG PCTRS (3) H/O heart artery stent Code(s): Z95.5 - PRESENCE OF CORONARY ANGIOPLASTY IMPLANT AND GRAFT (4) HLD (hyperlipidemia) Code(s): E78.5 - HYPERLIPIDEMIA, UNSPECIFIED (5) Hematuria Code(s): R31.9 - HEMATURIA, UNSPECIFIED (6) Obesity Code(s): E66.9 - OBESITY, UNSPECIFIED (7) PAD (peripheral artery disease) Code(s): I73.9 - PERIPHERAL VASCULAR DISEASE, UNSPECIFIED (8) Right leg pain Code(s): M79.604 - PAIN IN RIGHT LEG (9) Smokes cigarettes Code(s): F17.210 - NICOTINE DEPENDENCE, CIGARETTES, UNCOMPLICATED (10) Diabetes type 2, uncontrolled Code(s): E11.65 - TYPE 2 DIABETES MELLITUS WITH HYPERGLYCEMIA (11) Hypertension Code(s): I10 - ESSENTIAL (PRIMARY) HYPERTENSION Assessment/Plan 49 y.o. male with PMH of DVT, RLE arterial occlusion s/p TPA (has not been taking Xarelto due to lack of insurance coverage), obesity, CAD s/p stent, CHF, HTN, HLD, DM presented with c/o severe RLE pain x 1 wk and foot feeling cold. Noted to have Rt popliteal and tibial arterial occlusion and initially underwent thrombolysis but then subsequently had SFA angioplasty with stent and tibial artery angioplasty on 01/25/19. Pt noted to have increasing wbc count since yesterday and mild temp elevation to 99.3F. +recent hematuria Leukocytosis RLE popliteal and tibial artery occlusion s/p angioplasty/stent Hematuria Hx of RLE arterial occlusion s/p TPA CAD s/p stent CHF DM HTN HLD Obesity plan continue current mgmt physio wound care rest as per the team abx will need a total of 5 weeks of abx patient refusing to take abx even after explaining it to him if patient does not want to take abx then there is not further course
[2019-02-23 19:19] VITALS: BP 123/73; PULSE 104; TEMP 98.3
== END 2019-02-23 21:40 | DRG 181 ==
LOC: JER 18:12 → JERBED 01-24 01:08 → J6S 01-24 03:31 → JSAMEDAYSX 01-24 09:17 → JICU 01-24 11:41 → J7W 01-26 20:39 → JICU 02-01 22:49 → J8W 02-06 18:39
PROVIDERS: ADMIT Internal Medicine; ATTEND Internal Medicine
PROC: B40 Imaging, Lower Arteries, Plain Radiography (ICD-10-PCS; 2019-01-24)
PROC: B40DYZZ Plain Radiography of Aorta and Bilateral Lower Extremity Arteries using Other Contrast (ICD-10-PCS; 2019-01-24)
PROC: 3E03317 Introduction of Other Thrombolytic into Peripheral Vein, Percutaneous Approach (ICD-10-PCS; principal; 2019-01-24 08:00)
PROC: B40FYZZ Plain Radiography of Right Lower Extremity Arteries using Other Contrast (ICD-10-PCS; 2019-01-25)
PROC: 047R3ZZ Dilation of Right Posterior Tibial Artery, Percutaneous Approach (ICD-10-PCS; 2019-01-25)
PROC: 047K3DZ Dilation of Right Femoral Artery with Intraluminal Device, Percutaneous Approach (ICD-10-PCS; 2019-01-25)
PROC: B40FYZZ Plain Radiography of Right Lower Extremity Arteries using Other Contrast (ICD-10-PCS; 2019-02-01)
PROC: B40DYZZ Plain Radiography of Aorta and Bilateral Lower Extremity Arteries using Other Contrast (ICD-10-PCS; 2019-02-01)
PROC: 3E03317 Introduction of Other Thrombolytic into Peripheral Vein, Percutaneous Approach (ICD-10-PCS; 2019-02-01)
PROC: B40GYZZ Plain Radiography of Left Lower Extremity Arteries using Other Contrast (ICD-10-PCS; 2019-02-01)
PROC: B40FYZZ Plain Radiography of Right Lower Extremity Arteries using Other Contrast (ICD-10-PCS; 2019-02-02)
PROC: 047P3ZZ Dilation of Right Anterior Tibial Artery, Percutaneous Approach (ICD-10-PCS; 2019-02-02)
PROC: 047R3ZZ Dilation of Right Posterior Tibial Artery, Percutaneous Approach (ICD-10-PCS; 2019-02-02)
PROC: 047R3Z1 Dilation of Right Posterior Tibial Artery using Drug-Coated Balloon, Percutaneous Approach (ICD-10-PCS; 2019-02-02)
PROC: 047T3ZZ Dilation of Right Peroneal Artery, Percutaneous Approach (ICD-10-PCS; 2019-02-02)
PROC: 0QBN0ZX Excision of Right Metatarsal, Open Approach, Diagnostic (ICD-10-PCS; 2019-02-14)
PROC: 0Y6M0Z9 Detachment at Right Foot, Partial 1st Ray, Open Approach (ICD-10-PCS; 2019-02-14)
PROC: 0Y6M0ZB Detachment at Right Foot, Partial 2nd Ray, Open Approach (ICD-10-PCS; 2019-02-14)
PROC: 0Y6M0ZC Detachment at Right Foot, Partial 3rd Ray, Open Approach (ICD-10-PCS; 2019-02-14)
PROC: 0Y6M0ZD Detachment at Right Foot, Partial 4th Ray, Open Approach (ICD-10-PCS; 2019-02-14)
PROC: 0Y6M0ZF Detachment at Right Foot, Partial 5th Ray, Open Approach (ICD-10-PCS; 2019-02-14)
PROC: 02HV33Z Insertion of Infusion Device into Superior Vena Cava, Percutaneous Approach (ICD-10-PCS; 2019-02-23)
PROC: B518ZZA Fluoroscopy of Superior Vena Cava, Guidance (ICD-10-PCS; 2019-02-23)
DX: E11.52 Type 2 diabetes mellitus with diabetic peripheral angiopathy with gangrene (principal); I74.8 Embolism and thrombosis of other arteries; D72.829 Elevated white blood cell count, unspecified; I50.9 Heart failure, unspecified; R31.9 Hematuria, unspecified; R33.9 Retention of urine, unspecified; R00.0 Tachycardia, unspecified; I99.8 Other disorder of circulatory system; E66.9 Obesity, unspecified; Z68.37 Body mass index [BMI] 37.0-37.9, adult; I11.0 Hypertensive heart disease with heart failure; I50.30 Unspecified diastolic (congestive) heart failure; I25.2 Old myocardial infarction; F17.210 Nicotine dependence, cigarettes, uncomplicated; F41.8 Other specified anxiety disorders; E11.621 Type 2 diabetes mellitus with foot ulcer; L97.528 Non-pressure chronic ulcer of other part of left foot with other specified severity; I83.005 Varicose veins of unspecified lower extremity with ulcer other part of foot; E78.5 Hyperlipidemia, unspecified; A49.02 Methicillin resistant Staphylococcus aureus infection, unspecified site; Z95.5 Presence of coronary angioplasty implant and graft; Z91.89 Other specified personal risk factors, not elsewhere classified; Z86.718 Personal history of other venous thrombosis and embolism
CPT/HCPCS: 36415; 36569; 71045-TC-FY; 73630-TC-RT-FY; 75635-TC; 76000-TC-FY; 77001-TC-FY; 80048; 80053; 80061; 82962; 83036; 83721; 83735; 84100; 84443; 85025; 85027; 85379; 85384; 85610; 85730; 86850; 86900; 86901; 87040; 87070; 87075; 87086; 87186; 87205; 88305-TC; 88311-TC; 93005; 93010; 93306-TC; 93925-TC; 93971-TC; 94760; 97116-GP; 97162-GP; 99284-25; C1751; G0480; J0131; J1644; J2997; J7030

== ENCOUNTER 2019-02-23 22:33 | Inpatient (IN) | payer OTHER ==
--- NOTE | 2019-02-23 22:38 | PDOC ---
History of Present Illness - General Stated Complaint: RLE/ PAIN History Source: Patient Exam Limitations: No Limitations - History of Present Illness Initial Comments: 02/23/19 22:40 48 yo M with a hx of DVT, RLE arterial occlusion s/p TPA, obesity, CAD s/p stent , CHF, HTN, HLD, and DM recently admitted to the hospital in mid 01/2019 for severe RLE pain for 1 week with cold foot with right popliteal and tibial arterial occlusion with angioplasty and subsequent amputation presents to the emergency department [facility] from [facility] after refusal to enter his room after his discharge from the hospital today. The patient was on zosyn and vancomycin and is currently on xarelto with a PICC line insertion completed at time of discharge to have a total of 5 weeks of abx coverage. The patient states he did not want to go to [facility] because they replaced his private room with a shared room and was concerned for infection. In addition, EMS states the room smelled strongly of fecal matter. Denies the following: fever, chills, SOB, chest pain, abdominal pain, dysuria, hematuria, diarrhea, hematochezia, and leg pain. Allergies: NKDA Past History - Past Medical History Allergies/Adverse Reactions: Allergies Allergy/AdvReac Type Severity Reaction Status Date / Time No Known Allergies Allergy Verified 02/23/19 22:50 Home Medications: Ambulatory Orders Aspirin [ASA -] 81 mg PO DAILY #30 tab.chew 09/22/17 Atorvastatin Ca [Lipitor] 40 mg PO HS #30 tablet 09/22/17 Metoprolol Tartrate [Lopressor -] 25 mg PO BID #30 tablet 09/22/17 Rivaroxaban [Xarelto -] 20 mg PO DAILY 01/24/19 Acetaminophen [Tylenol .Regular Strength -] 650 mg PO Q4H PRN tablet 02/23/19 Docusate Sodium [Colace -] 100 mg PO TID capsule 02/23/19 Insulin (Levemir) [Levemir Vial] 15 units SQ BID@0700,2200 units 02/23/19 Insulin Sliding Scale [Novolog Vial Sliding Scale -] 1 vial SQ ACHS units 02/23 Lisinopril [Prinivil] 10 mg PO DAILY tablet 02/23/19 Piperacillin/Tazob 3.375 gm [Zosyn -] 3.375 gm IVPB Q8H-IV vial 02/23/19 Piperacillin/Tazob 3.375 gm [Zosyn -] 3.375 gm IVPB Q8H-IV vial 02/23/19 Polyethylene Glycol 3350 [Miralax 119 gm Btl -] 17 gm PO BID bottle 02/23/19 Rivaroxaban [Xarelto] 15 mg PO BIDWM tablet 02/23/19 Vancomycin 1,250 mg IVPB Q12H vial 02/23/19 Cardiac Disorders: Yes (CAD, stents) COPD: No Diabetes: Yes - Surgical History Cardiac Surgery: Yes (CARD STENT) - Suicide/Smoking/Psychosocial Hx Smoking History: Current some day smoker Have you smoked in the past 12 months: Yes Number of Cigarettes Smoked Daily: 4 Hx Alcohol Use: No Drug/Substance Use Hx: No Substance Use Type: None Review of Systems - Review of Systems Able to Perform ROS?: Yes Is the patient limited Ukrainian proficient: No Constitutional: No: Chills, Diaphoresis, Fever, Weakness HEENTM: No: Eye Pain, Ear Pain, Nose Pain, Nose Congestion, Throat Pain, Mouth Pain Respiratory: No: Cough, Shortness of Breath, SOB with Exertion, Hemoptysis Cardiac (ROS): No: Chest Pain, Lightheadedness, Palpitations, Syncope ABD/GI: No: Constipated, Diarrhea, Nausea, Rectal Bleeding, Vomiting, Tarry Stools : No: Burning, Dysuria Musculoskeletal: No: Back Pain, Joint Pain, Neck Pain Integumentary: No: Bruising, Erythema, Rash Neurological: No: Headache, Numbness Psychiatric: No: Change in Appetite Endocrine: No: Unexplained Weight Gain Hematologic/Lymphatic: No: Anemia *Physical Exam - Physical Exam General Appearance: Yes: Nourished, Appropriately Dressed. No: Apparent Distress, Intoxicated HEENT: positive: EOMI, MARYANN, Normal Voice, Symmetrical, Pharynx Normal, Hearing Grossly Normal. negative: Pale Conjunctivae, Scleral Icterus (R), Scleral Icterus (L), Muffled/Hoarse voice, Pharyngeal Erythema, Tonsillar Exudate, Tonsillar Erythema, Nasal Congestion, Rhinorrhea, Sinus Tenderness, Excessive drooling Neck: positive: Trachea midline, Supple. negative: Tender, Lymphadenopathy (R) , Lymphadenopathy (L), Tender lateral, Tender midline Respiratory/Chest: positive: Lungs Clear, Normal Breath Sounds. negative: Chest Tender, Respiratory Distress, Accessory Muscle Use, Crackles, Rales, Rhonchi, Stridor, Wheezing Cardiovascular: positive: Regular Rhythm, Regular Rate, S1, S2. negative: Systolic Murmur Gastrointestinal/Abdominal: positive: Normal Bowel Sounds, Flat, Soft. negative : Tender, Distended, Guarding, Rebound Lymphatic: negative: Adenopathy Musculoskeletal: positive: Normal Inspection. negative: CVA Tenderness, Vertebral Tenderness Extremity: positive: Other (bandage wrapped on the right foot s/p gangrenous foot amputation). negative: Calf Tenderness Integumentary: positive: Normal Color, Dry, Warm Neurologic: positive: goat driver II-XII NML intact, Fully Oriented, Alert, Normal Mood/ Affect, Normal Response Medical Decision Making - Medical Decision Making 02/24/19 00:05 48 yo M with a hx of DVT, RLE arterial occlusion s/p TPA, obesity, CAD s/p stent , CHF, HTN, HLD, and DM recently admitted to the hospital in mid 01/2019 for severe RLE pain for 1 week with cold foot with right popliteal and tibial arterial occlusion with angioplasty and subsequent amputation presents to the emergency department [facility] from [facility] after refusal to enter his room after his discharge from the hospital today. Initial vitals: Initial Vital Signs Temp Pulse Resp BP 98.3 F 94 H 18 124/80 02/23/19 22:48 02/23/19 22:48 02/23/19 22:48 02/23/19 22:48 Work up: patient returns from [facility]. Per the patient, he stated the room was unacceptable and needed the room to be single. Per [facility] the patient was offered to speak with nursing living supervisor to have arrangement of the single private room made for Tuesday. Patient refused to stay and was brought back by [facility] to our ED. Patient's currently is asymptomatic. Patient to be admitted back to his PMD's service as given the resistances of the polymicrobial organisms in his wound culture would necessitate contact isolations which were not provided by [facility]. A call was placed to Dr. Oron[place]. *DC/Admit/Observation/Transfer Diagnosis at time of Disposition: Readmission after hospitalization within last 30 days - Referrals - Patient Instructions - Post Discharge Activity
--- NOTE | 2019-02-23 22:44 | PDOC ---
Attending Attestation - Resident Resident Name: Adolfo Campbell - HPI HPI: 02/24/19 00:49 pt presents to the ED after discharged from [facility]. Patient was refusing to go into his room at the halfway because it was not a private room. He was to be admitted at [place] for IV antibiotics. - Physicial Exam PE: 02/24/19 00:55 Agree with resident exam. - Medical Decision Making 02/24/19 00:55 pt presents to the ED for readmission after refusing to be admitted to halfway. Case discussed with Yeyo, who will admit the paitnet.
[2019-02-23 23:16] VITALS: BMI 38.0
[2019-02-24] MEDS ORDERED: MIDAZOLAM HCL 2 MG/2 ML SINGLE DOSE VIAL ONE (02:00)
[2019-02-24] MEDS ORDERED: ACETAMINOPHEN 325 MG TABLET (FP) PO PRN (02:43)
[2019-02-24] MEDS: VANCOMYCIN 1 GRAM (PRE-DOCKED) 1,000 MG/250 ML BAG IVPB SCH ×2 (04:09→14:44)
[2019-02-24] MEDS: DOCUSATE SODIUM 100 MG CAPSULE (FP) PO SCH ×3 (06:32→21:44)
[2019-02-24] MEDS: INSULIN (LEVEMIR) 100 UNITS/ML UNITS SQ SCH ×2 (06:32→21:40)
[2019-02-24] MEDS ORDERED: INSULIN SLIDING SCALE (NOVOLOG) 1 VIAL SQ SCH (07:00)
[2019-02-24] MEDS ORDERED: INSULIN (LEVEMIR) 100 UNITS/ML UNITS SQ ONE (07:41)
[2019-02-24] MEDS ORDERED: PT OWN MED DRAWER 7, Y5N ONE ×2 (07:41→09:08)
[2019-02-24] MEDS: RIVAROXABAN 15 MG TABLET PO SCH ×3 (09:00→17:22)
[2019-02-24] MEDS ORDERED: PIPERACILLIN/TAZOBACTAM 3.375 GM VIAL IVPB ONE ×2 (09:08→17:20)
[2019-02-24] MEDS ORDERED: DEXTROSE 5%-WATER - 50 ML IVPB ONE ×2 (09:08→17:20)
[2019-02-24 09:25] LABS: ALBUMIN 2.6 g/dl (3.4-5.0); BILIRUBIN,TOTAL 0.5 mg/dL (0.2-1); BLOOD UREA NITROGEN 17.6 mg/dL (7-18); CALCIUM 9.2 mg/dL (8.5-10.1); CREATININE 1.1 mg/dL (0.55-1.3)
[2019-02-24] MEDS: LISINOPRIL 10 MG TABLET (FP) PO SCH ×2 (09:30→14:03)
[2019-02-24] MEDS: PIPERACILLIN/TAZOB 3.375 GM 3.375 GM in DEXTROSE 5%-WATER - 50 ML IVPB SCH ×3 (09:30→17:23)
[2019-02-24] MEDS: POLYETHYLENE GLYCOL 3350 119 GM BTL PO SCH ×3 (09:30→21:44)
[2019-02-24] MEDS: METOPROLOL TARTRATE 25 MG TABLET (FP) PO SCH ×3 (09:30→21:36)
[2019-02-24] MEDS: ASPIRIN 81 MG CHEWABLE TABLETS PO SCH ×2 (09:35→14:03)
[2019-02-24 10:21] LABS: BASO % 0.9 % (0-2.0); EOS % 3.4 % (0-4.5); HEMATOCRIT 29.9 % (35.4-49); HEMOGLOBIN 9.7 GM/dL (11.7-16.9); LYMPH % 25.2 % (8-40); MCH 25.5 pg (25.7-33.7); MCHC 32.5 g/dl (32.0-35.9); MEAN CELL VOLUME 78.6 fl (80-96); MEAN PLT VOLUME 6.8 fl (7.5-11.1); MONO % 10.7 % (3.8-10.2); NEUT % 59.8 % (42.8-82.8); PLATELET COUNT 676 K/MM3 (134-434); RBC 3.81 M/mm3 (4.00-5.60); WHITE BLOOD COUNT 8.4 K/mm3 (4.0-10.0)
--- NOTE | 2019-02-24 15:51 | CON.ID ---
Consult - History Source History Provided By: Patient, Medical Record Limitations to Obtaining History: No Limitations - Past Medical History Cardio/Vascular: Yes: CHF (diastolic), HTN, [place] (by hx : ? 2015) Endocrine: Yes: Diabetes Mellitus - Past Surgical History Past Surgical History: Yes: Stent (coronary; peripheral ) - Alcohol/Substance Use Hx Alcohol Use: No - Smoking History Smoking history: Current some day smoker Have you smoked in the past 12 months: Yes Aproximately how many cigarettes per day: 4 - Social History Usual Living Arrangement: With Spouse Home Medications - Allergies Allergies/Adverse Reactions: Allergies Allergy/AdvReac Type Severity Reaction Status Date / Time No Known Allergies Allergy Verified 02/23/19 22:50 - Home Medications Home Medications: Ambulatory Orders Aspirin [ASA -] 81 mg PO DAILY #30 tab.chew 09/22/17 Atorvastatin Ca [Lipitor] 40 mg PO HS #30 tablet 09/22/17 Metoprolol Tartrate [Lopressor -] 25 mg PO BID #30 tablet 09/22/17 Acetaminophen [Tylenol .Regular Strength -] 650 mg PO Q4H PRN tablet 02/23/19 Docusate Sodium [Colace -] 100 mg PO TID capsule 02/23/19 Insulin (Levemir) [Levemir Vial] 15 units SQ BID@0700,2200 units 02/23/19 Insulin Sliding Scale [Novolog Vial Sliding Scale -] 1 vial SQ ACHS units 02/23 Lisinopril [Prinivil] 10 mg PO DAILY tablet 02/23/19 Polyethylene Glycol 3350 [Miralax 119 gm Btl -] 17 gm PO BID bottle 02/23/19 Rivaroxaban [Xarelto] 15 mg PO BIDWM tablet 02/23/19 Physical Exam Vital Signs: Vital Signs Temperature 97.5 F L 02/24/19 09:00 Pulse Rate 114 H 02/24/19 09:00 Respiratory Rate 20 02/24/19 09:00 Blood Pressure 134/87 02/24/19 09:00 O2 Sat by Pulse Oximetry (%) 98 02/24/19 03:11 Labs: CBC, BMP 02/24/19 08:30 02/24/19 06:45 Problem List - Problems (1) Arterial occlusion Code(s): I70.90 - UNSPECIFIED ATHEROSCLEROSIS (2) CAD (coronary artery disease) Code(s): I25.10 - ATHSCL HEART DISEASE OF [place] CORONARY ARTERY W/O ANG PCTRS (3) DVT (deep venous thrombosis) Code(s): I82.409 - ACUTE EMBOLISM AND THOMBOS UNSP DEEP VN UNSP LOWER EXTREMITY (4) Diabetes Code(s): E11.9 - TYPE 2 DIABETES MELLITUS WITHOUT COMPLICATIONS (5) Diabetic foot ulcer Code(s): E11.621 - TYPE 2 DIABETES MELLITUS WITH FOOT ULCER; L97.509 - NON- PRESSURE CHRONIC ULCER OTH PRT UNSP FOOT W UNSP SEVERITY (6) H/O heart artery stent Code(s): Z95.5 - PRESENCE OF CORONARY ANGIOPLASTY IMPLANT AND GRAFT (7) HLD (hyperlipidemia) Code(s): E78.5 - HYPERLIPIDEMIA, UNSPECIFIED (8) Hypertension Code(s): I10 - ESSENTIAL (PRIMARY) HYPERTENSION (9) Obesity Code(s): E66.9 - OBESITY, UNSPECIFIED (10) PAD (peripheral artery disease) Code(s): I73.9 - PERIPHERAL VASCULAR DISEASE, UNSPECIFIED (11) Stenosis due to any device, implant or graft Code(s): T85.858A - STENOSIS DUE TO OTHER INTERNAL PROSTH DEV/GRFT, INIT
--- NOTE | 2019-02-24 15:53 | PN ---
Progress Note, Physician History of Present Illness: Pt seen and examined. He is known to me from previous admission. Returns after d /c to [facility] today due to desire for single occupancy room. He has no other complaints. Denies pain in RLE. Remains on IV antibiotics to complete 5 more weeks. - Current Medication List Current Medications: Active Medications Acetaminophen (Tylenol -) 650 mg PO Q4H PRN PRN Reason: FEVER Aspirin (Asa -) 81 mg PO DAILY [facility] Last Admin: 02/24/19 14:03 Dose: 81 mg Atorvastatin Calcium (Lipitor -) 40 mg PO HS [facility] Docusate Sodium (Colace -) 100 mg PO TID [facility] Last Admin: 02/24/19 14:03 Dose: Not Given Vancomycin HCl (Vancomycin (Pre-Docked)) 1,000 mg in 250 mls @ 166.667 mls/hr IVPB Q12H [facility] Last Admin: 02/24/19 14:44 Dose: 166.667 mls/hr Piperacillin Sod/Tazobactam (Sod 3.375 gm/ Dextrose) 50 mls @ 100 mls/hr IVPB Q8H-IV [facility]; Protocol Last Admin: 02/24/19 14:04 Dose: 100 mls/hr Insulin Aspart (Novolog Vial Sliding Scale -) 1 vial SQ ACHS [facility]; Protocol Insulin Detemir (Levemir Vial) 15 units SQ BID@0700,2200 [facility] Last Admin: 02/24/19 06:32 Dose: 15 units Lisinopril (Prinivil) 10 mg PO DAILY [facility] Last Admin: 02/24/19 14:03 Dose: 10 mg Metoprolol Tartrate (Lopressor -) 25 mg PO BID [facility] Last Admin: 02/24/19 14:03 Dose: 25 mg Polyethylene Glycol (Miralax (For Daily Use) -) 17 gm PO BID [facility] Last Admin: 02/24/19 14:03 Dose: Not Given Rivaroxaban (Xarelto) 15 mg PO BIDWM [facility] Last Admin: 02/24/19 14:03 Dose: 15 mg - Objective Vital Signs: Vital Signs Temperature 97.5 F L 02/24/19 09:00 Pulse Rate 114 H 02/24/19 09:00 Respiratory Rate 20 02/24/19 09:00 Blood Pressure 134/87 02/24/19 09:00 O2 Sat by Pulse Oximetry (%) 98 02/24/19 03:11 Constitutional: Yes: No Distress, Calm Eyes: Yes: Conjunctiva Clear Cardiovascular: Yes: Regular Rate and Rhythm Respiratory: Yes: CTA Bilaterally Gastrointestinal: Yes: Normal Bowel Sounds, Soft Genitourinary: Yes: WNL Extremities: Yes: Amputation (Rt TMA) Edema: No Peripheral Pulses WNL: Yes Integumentary: Yes: WNL Wound/Incision: Yes: Dressing Dry and Intact Neurological: Yes: Alert, Oriented Labs: CBC, BMP 02/24/19 08:30 02/24/19 06:45 Problem List - Problems (1) Arterial occlusion Code(s): I70.90 - UNSPECIFIED ATHEROSCLEROSIS (2) CAD (coronary artery disease) Code(s): I25.10 - ATHSCL HEART DISEASE OF [place] CORONARY ARTERY W/O ANG PCTRS (3) DVT (deep venous thrombosis) Code(s): I82.409 - ACUTE EMBOLISM AND THOMBOS UNSP DEEP VN UNSP LOWER EXTREMITY (4) Diabetes Code(s): E11.9 - TYPE 2 DIABETES MELLITUS WITHOUT COMPLICATIONS (5) Diabetic foot ulcer Code(s): E11.621 - TYPE 2 DIABETES MELLITUS WITH FOOT ULCER; L97.509 - NON- PRESSURE CHRONIC ULCER OTH PRT UNSP FOOT W UNSP SEVERITY (6) H/O heart artery stent Code(s): Z95.5 - PRESENCE OF CORONARY ANGIOPLASTY IMPLANT AND GRAFT (7) HLD (hyperlipidemia) Code(s): E78.5 - HYPERLIPIDEMIA, UNSPECIFIED (8) Hypertension Code(s): I10 - ESSENTIAL (PRIMARY) HYPERTENSION (9) Obesity Code(s): E66.9 - OBESITY, UNSPECIFIED (10) PAD (peripheral artery disease) Code(s): I73.9 - PERIPHERAL VASCULAR DISEASE, UNSPECIFIED (11) Stenosis due to any device, implant or graft Code(s): T85.858A - STENOSIS DUE TO OTHER INTERNAL PROSTH DEV/GRFT, INIT Assessment/Plan RLE popliteal and tibial artery occlusion s/p angioplasty/stent s/p Rt TMA on 02/08/19 Hx of RLE arterial occlusion s/p TPA CAD s/p stent CHF DM HTN HLD Obesity -- continue Zosyn/Vancomycin IV x 5 wks -- weekly cbc, bmp, Vancomycin trough levels, monitor renal function Pt currently without new complaints, afebrile, tolerating antibiotics
--- NOTE | 2019-02-24 16:47 | HP ---
Admitting History and Physical - Past Medical History Cardiovascular: Yes: CHF (diastolic), HTN, [place] (by hx : ? 2016) Endocrine: Yes: Diabetes Mellitus - Past Surgical History Past Surgical History: Yes: Stent (coronary; peripheral ) - Smoking History Smoking history: Current some day smoker Have you smoked in the past 12 months: Yes Aproximately how many cigarettes per day: 4 - Alcohol/Substance Use Hx Alcohol Use: No Home Medications - Allergies Allergies/Adverse Reactions: Allergies Allergy/AdvReac Type Severity Reaction Status Date / Time No Known Allergies Allergy Verified 02/23/19 22:50 - Home Medications Home Medications: Ambulatory Orders Aspirin [ASA -] 81 mg PO DAILY #30 tab.chew 09/22/17 Atorvastatin Ca [Lipitor] 40 mg PO HS #30 tablet 09/22/17 Metoprolol Tartrate [Lopressor -] 25 mg PO BID #30 tablet 09/22/17 Acetaminophen [Tylenol .Regular Strength -] 650 mg PO Q4H PRN tablet 02/23/19 Docusate Sodium [Colace -] 100 mg PO TID capsule 02/23/19 Insulin (Levemir) [Levemir Vial] 15 units SQ BID@0700,2200 units 02/23/19 Insulin Sliding Scale [Novolog Vial Sliding Scale -] 1 vial SQ ACHS units 02/23 Lisinopril [Prinivil] 10 mg PO DAILY tablet 02/23/19 Polyethylene Glycol 3350 [Miralax 119 gm Btl -] 17 gm PO BID bottle 02/23/19 Rivaroxaban [Xarelto] 15 mg PO BIDWM tablet 02/23/19 Physical Examination Vital Signs: Vital Signs Temperature 98.4 F 02/24/19 15:00 Pulse Rate 90 02/24/19 15:00 Respiratory Rate 18 02/24/19 15:00 Blood Pressure 116/78 02/24/19 15:00 O2 Sat by Pulse Oximetry (%) 98 02/24/19 03:11 Labs: CBC, BMP 02/24/19 08:30 02/24/19 06:45
[2019-02-24] MEDS: ATORVASTATIN CA 40 MG TABLET (FP) PO SCH (21:36)
[2019-02-25] MEDS ORDERED: DEXTROSE 5%-WATER - 50 ML IVPB ONE ×3 (00:03→17:18)
[2019-02-25] MEDS ORDERED: PIPERACILLIN/TAZOBACTAM 3.375 GM VIAL IVPB ONE ×3 (00:03→17:17)
[2019-02-25] MEDS: PIPERACILLIN/TAZOB 3.375 GM 3.375 GM in DEXTROSE 5%-WATER - 50 ML IVPB SCH ×3 (01:34→17:21)
[2019-02-25] MEDS: VANCOMYCIN 1 GRAM (PRE-DOCKED) 1,000 MG/250 ML BAG IVPB SCH ×2 (02:49→14:19)
[2019-02-25] MEDS: DOCUSATE SODIUM 100 MG CAPSULE (FP) PO SCH ×3 (06:16→21:46)
[2019-02-25] MEDS: INSULIN (LEVEMIR) 100 UNITS/ML UNITS SQ SCH ×2 (06:18→21:52)
[2019-02-25] MEDS: RIVAROXABAN 15 MG TABLET PO SCH ×2 (07:54→17:20)
[2019-02-25] MEDS ORDERED: PT OWN MED DRAWER 7, Y5N ONE (09:28)
[2019-02-25] MEDS: ASPIRIN 81 MG CHEWABLE TABLETS PO SCH (09:33)
[2019-02-25] MEDS: METOPROLOL TARTRATE 25 MG TABLET (FP) PO SCH ×2 (09:33→21:46)
[2019-02-25] MEDS: POLYETHYLENE GLYCOL 3350 119 GM BTL PO SCH ×2 (09:34→21:46)
[2019-02-25] MEDS: LISINOPRIL 10 MG TABLET (FP) PO SCH (09:34)
--- NOTE | 2019-02-25 20:21 | PN ---
Progress Note, Physician History of Present Illness: No new events. Afebrile, without distress. Has no specific complaints. Tolerating antibiotics via PICC. - Current Medication List Current Medications: Active Medications Acetaminophen (Tylenol -) 650 mg PO Q4H PRN PRN Reason: FEVER Aspirin (Asa -) 81 mg PO DAILY [facility] Last Admin: 02/25/19 09:33 Dose: 81 mg Atorvastatin Calcium (Lipitor -) 40 mg PO HS [facility] Last Admin: 02/24/19 21:36 Dose: 40 mg Docusate Sodium (Colace -) 100 mg PO TID [facility] Last Admin: 02/25/19 14:18 Dose: Not Given Vancomycin HCl (Vancomycin (Pre-Docked)) 1,000 mg in 250 mls @ 166.667 mls/hr IVPB Q12H [facility] Last Admin: 02/25/19 14:19 Dose: 166.667 mls/hr Piperacillin Sod/Tazobactam (Sod 3.375 gm/ Dextrose) 50 mls @ 100 mls/hr IVPB Q8H-IV [facility]; Protocol Last Admin: 02/25/19 17:21 Dose: 100 mls/hr Insulin Aspart (Novolog Vial Sliding Scale -) 1 vial SQ ACHS [facility]; Protocol Insulin Detemir (Levemir Vial) 15 units SQ BID@0700,2200 [facility] Last Admin: 02/25/19 06:18 Dose: 15 units Lisinopril (Prinivil) 10 mg PO DAILY [facility] Last Admin: 02/25/19 09:34 Dose: 10 mg Metoprolol Tartrate (Lopressor -) 25 mg PO BID [facility] Last Admin: 02/25/19 09:33 Dose: 25 mg Polyethylene Glycol (Miralax (For Daily Use) -) 17 gm PO BID [facility] Last Admin: 02/25/19 09:34 Dose: Not Given Rivaroxaban (Xarelto) 15 mg PO BIDWM [facility] Last Admin: 02/25/19 17:20 Dose: 15 mg - Objective Vital Signs: Vital Signs Temperature 98.3 F 02/25/19 17:44 Pulse Rate 96 H 02/25/19 17:44 Respiratory Rate 20 02/25/19 17:44 Blood Pressure 121/81 02/25/19 17:44 O2 Sat by Pulse Oximetry (%) 98 02/24/19 21:00 Constitutional: Yes: No Distress, Calm Eyes: Yes: Conjunctiva Clear Neck: Yes: Supple Cardiovascular: Yes: Regular Rate and Rhythm Respiratory: Yes: CTA Bilaterally Gastrointestinal: Yes: Normal Bowel Sounds, Soft Genitourinary: Yes: WNL Musculoskeletal: Yes: WNL Extremities: Yes: Amputation (RT TMA) Edema: No Integumentary: Yes: WNL Wound/Incision: Yes: Dressing Dry and Intact Neurological: Yes: Alert, Oriented Labs: CBC, BMP 02/24/19 08:30 02/24/19 06:45 Problem List - Problems (1) Arterial occlusion Code(s): I70.90 - UNSPECIFIED ATHEROSCLEROSIS (2) CAD (coronary artery disease) Code(s): I25.10 - ATHSCL HEART DISEASE OF [place] CORONARY ARTERY W/O ANG PCTRS (3) DVT (deep venous thrombosis) Code(s): I82.409 - ACUTE EMBOLISM AND THOMBOS UNSP DEEP VN UNSP LOWER EXTREMITY (4) Diabetes Code(s): E11.9 - TYPE 2 DIABETES MELLITUS WITHOUT COMPLICATIONS (5) Diabetic foot ulcer Code(s): E11.621 - TYPE 2 DIABETES MELLITUS WITH FOOT ULCER; L97.509 - NON- PRESSURE CHRONIC ULCER OTH PRT UNSP FOOT W UNSP SEVERITY (6) H/O heart artery stent Code(s): Z95.5 - PRESENCE OF CORONARY ANGIOPLASTY IMPLANT AND GRAFT (7) HLD (hyperlipidemia) Code(s): E78.5 - HYPERLIPIDEMIA, UNSPECIFIED (8) Hypertension Code(s): I10 - ESSENTIAL (PRIMARY) HYPERTENSION (9) Obesity Code(s): E66.9 - OBESITY, UNSPECIFIED (10) PAD (peripheral artery disease) Code(s): I73.9 - PERIPHERAL VASCULAR DISEASE, UNSPECIFIED (11) Stenosis due to any device, implant or graft Code(s): T85.858A - STENOSIS DUE TO OTHER INTERNAL PROSTH DEV/GRFT, INIT Assessment/Plan RLE popliteal and tibial artery occlusion s/p angioplasty/stent s/p Rt TMA on 02/08/19 Hx of RLE arterial occlusion s/p TPA CAD s/p stent CHF DM HTN HLD Obesity -- continue Zosyn/Vancomycin IV x 5 wks -- weekly cbc, bmp, Vancomycin trough levels, monitor renal function -- continue monitor vitals -- discharge planning
[2019-02-25] MEDS ORDERED: INSULIN (NOVOLOG) ASPART 100 UNITS/ML 10ML VIAL ONE (21:23)
[2019-02-25] MEDS: ATORVASTATIN CA 40 MG TABLET (FP) PO SCH (21:46)
[2019-02-25] MEDS: INSULIN SLIDING SCALE (NOVOLOG) 1 VIAL SQ SCH (21:52)
--- NOTE | 2019-02-25 22:37 | PN ---
Progress Note, Physician - Current Medication List Current Medications: Active Medications Acetaminophen (Tylenol -) 650 mg PO Q4H PRN PRN Reason: FEVER Aspirin (Asa -) 81 mg PO DAILY [facility] Last Admin: 02/25/19 09:33 Dose: 81 mg Atorvastatin Calcium (Lipitor -) 40 mg PO HS [facility] Last Admin: 02/25/19 21:46 Dose: 40 mg Docusate Sodium (Colace -) 100 mg PO TID [facility] Last Admin: 02/25/19 21:46 Dose: Not Given Vancomycin HCl (Vancomycin (Pre-Docked)) 1,000 mg in 250 mls @ 166.667 mls/hr IVPB Q12H [facility] Last Admin: 02/25/19 14:19 Dose: 166.667 mls/hr Piperacillin Sod/Tazobactam (Sod 3.375 gm/ Dextrose) 50 mls @ 100 mls/hr IVPB Q8H-IV [facility]; Protocol Last Admin: 02/25/19 17:21 Dose: 100 mls/hr Insulin Aspart (Novolog Vial Sliding Scale -) 1 vial SQ ACHS [facility]; Protocol Last Admin: 02/25/19 21:52 Dose: 4 units Insulin Detemir (Levemir Vial) 15 units SQ BID@0700,2200 [facility] Last Admin: 02/25/19 21:52 Dose: 15 units Lisinopril (Prinivil) 10 mg PO DAILY [facility] Last Admin: 02/25/19 09:34 Dose: 10 mg Metoprolol Tartrate (Lopressor -) 25 mg PO BID [facility] Last Admin: 02/25/19 21:46 Dose: 25 mg Polyethylene Glycol (Miralax (For Daily Use) -) 17 gm PO BID [facility] Last Admin: 02/25/19 21:46 Dose: Not Given Rivaroxaban (Xarelto) 15 mg PO BIDWM [facility] Last Admin: 02/25/19 17:20 Dose: 15 mg - Objective Vital Signs: Vital Signs Temperature 98.0 F 02/25/19 21:56 Pulse Rate 95 H 02/25/19 21:56 Respiratory Rate 18 02/25/19 21:56 Blood Pressure 133/82 02/25/19 21:56 O2 Sat by Pulse Oximetry (%) 98 02/25/19 21:00 Labs: CBC, BMP 02/24/19 08:30 02/24/19 06:45
[2019-02-26] MEDS ORDERED: PIPERACILLIN/TAZOBACTAM 3.375 GM VIAL IVPB ONE ×2 (00:15→10:24)
[2019-02-26] MEDS ORDERED: DEXTROSE 5%-WATER - 50 ML IVPB ONE ×2 (00:16→10:24)
[2019-02-26] MEDS: PIPERACILLIN/TAZOB 3.375 GM 3.375 GM in DEXTROSE 5%-WATER - 50 ML IVPB SCH ×2 (02:00→10:33)
[2019-02-26] MEDS: VANCOMYCIN 1 GRAM (PRE-DOCKED) 1,000 MG/250 ML BAG IVPB SCH (02:59)
[2019-02-26] MEDS: INSULIN (LEVEMIR) 100 UNITS/ML UNITS SQ SCH (06:36)
[2019-02-26] MEDS: INSULIN SLIDING SCALE (NOVOLOG) 1 VIAL SQ SCH ×2 (06:40→13:30)
[2019-02-26] MEDS: DOCUSATE SODIUM 100 MG CAPSULE (FP) PO SCH (06:42)
[2019-02-26] MEDS: POLYETHYLENE GLYCOL 3350 119 GM BTL PO SCH (10:35)
[2019-02-26] MEDS: ASPIRIN 81 MG CHEWABLE TABLETS PO SCH (10:35)
[2019-02-26] MEDS: METOPROLOL TARTRATE 25 MG TABLET (FP) PO SCH (10:35)
[2019-02-26] MEDS: LISINOPRIL 10 MG TABLET (FP) PO SCH (10:35)
[2019-02-26] MEDS: RIVAROXABAN 15 MG TABLET PO SCH (10:35)
--- NOTE | 2019-02-26 10:49 | PN ---
Progress Note, Physician History of Present Illness: stable no new issues - Current Medication List Current Medications: Active Medications Acetaminophen (Tylenol -) 650 mg PO Q4H PRN PRN Reason: FEVER Aspirin (Asa -) 81 mg PO DAILY [facility] Last Admin: 02/26/19 10:35 Dose: 81 mg Atorvastatin Calcium (Lipitor -) 40 mg PO HS [facility] Last Admin: 02/25/19 21:46 Dose: 40 mg Docusate Sodium (Colace -) 100 mg PO TID [facility] Last Admin: 02/26/19 06:42 Dose: Not Given Vancomycin HCl (Vancomycin (Pre-Docked)) 1,000 mg in 250 mls @ 166.667 mls/hr IVPB Q12H [facility] Last Admin: 02/26/19 02:59 Dose: 166.667 mls/hr Piperacillin Sod/Tazobactam (Sod 3.375 gm/ Dextrose) 50 mls @ 100 mls/hr IVPB Q8H-IV [facility]; Protocol Last Admin: 02/26/19 10:33 Dose: 100 mls/hr Insulin Aspart (Novolog Vial Sliding Scale -) 1 vial SQ ACHS [facility]; Protocol Last Admin: 02/26/19 06:40 Dose: 2 units Insulin Detemir (Levemir Vial) 15 units SQ BID@0700,2200 [facility] Last Admin: 02/26/19 06:36 Dose: 15 units Lisinopril (Prinivil) 10 mg PO DAILY [facility] Last Admin: 02/26/19 10:35 Dose: 10 mg Metoprolol Tartrate (Lopressor -) 25 mg PO BID [facility] Last Admin: 02/26/19 10:35 Dose: 25 mg Polyethylene Glycol (Miralax (For Daily Use) -) 17 gm PO BID [facility] Last Admin: 02/26/19 10:35 Dose: Not Given Rivaroxaban (Xarelto) 15 mg PO BIDWM [facility] Last Admin: 02/26/19 10:35 Dose: 15 mg - Objective Vital Signs: Vital Signs Temperature 98.0 F 02/25/19 21:56 Pulse Rate 95 H 02/25/19 21:56 Respiratory Rate 18 02/25/19 21:56 Blood Pressure 133/82 02/25/19 21:56 O2 Sat by Pulse Oximetry (%) 98 02/25/19 21:00 Constitutional: Yes: No Distress, Calm Cardiovascular: Yes: S1, S2 Respiratory: Yes: Regular, CTA Bilaterally Gastrointestinal: Yes: Normal Bowel Sounds, Soft Musculoskeletal: Yes: WNL Extremities: Yes: Other Wound/Incision: Yes: Dressing Dry and Intact Neurological: Yes: Alert, Oriented Psychiatric: Yes: Alert, Oriented Labs: CBC, BMP 02/24/19 08:30 02/24/19 06:45 Assessment/Plan Problem List - Problems (1) Arterial occlusion Code(s): I70.90 - UNSPECIFIED ATHEROSCLEROSIS (2) CAD (coronary artery disease) Code(s): I25.10 - ATHSCL HEART DISEASE OF [place] CORONARY ARTERY W/O ANG PCTRS (3) DVT (deep venous thrombosis) Code(s): I82.409 - ACUTE EMBOLISM AND THOMBOS UNSP DEEP VN UNSP LOWER EXTREMITY (4) Diabetes Code(s): E11.9 - TYPE 2 DIABETES MELLITUS WITHOUT COMPLICATIONS (5) Diabetic foot ulcer Code(s): E11.621 - TYPE 2 DIABETES MELLITUS WITH FOOT ULCER; L97.509 - NON- PRESSURE CHRONIC ULCER OTH PRT UNSP FOOT W UNSP SEVERITY (6) H/O heart artery stent Code(s): Z95.5 - PRESENCE OF CORONARY ANGIOPLASTY IMPLANT AND GRAFT (7) HLD (hyperlipidemia) Code(s): E78.5 - HYPERLIPIDEMIA, UNSPECIFIED (8) Hypertension Code(s): I10 - ESSENTIAL (PRIMARY) HYPERTENSION (9) Obesity Code(s): E66.9 - OBESITY, UNSPECIFIED (10) PAD (peripheral artery disease) Code(s): I73.9 - PERIPHERAL VASCULAR DISEASE, UNSPECIFIED (11) Stenosis due to any device, implant or graft Code(s): T85.858A - STENOSIS DUE TO OTHER INTERNAL PROSTH DEV/GRFT, INIT Assessment/Plan RLE popliteal and tibial artery occlusion s/p angioplasty/stent s/p Rt TMA on 02/08/19 Hx of RLE arterial occlusion s/p TPA CAD s/p stent CHF DM HTN HLD Obesity -- continue Zosyn/Vancomycin IV x 5 wks -- weekly cbc, bmp, Vancomycin trough levels, monitor renal function -- continue monitor vitals
[2019-02-26 13:29] VITALS: BP 154/93; PULSE 101; TEMP 98.6
== END 2019-02-26 13:22 | DRG 197 ==
LOC: JER 22:33 → JERBED 02-24 00:19 → OBSVTOIN 02-24 02:30 → J8W 02-24 03:06
PROVIDERS: ADMIT Internal Medicine; ATTEND Internal Medicine
DX: E11.51 Type 2 diabetes mellitus with diabetic peripheral angiopathy without gangrene (principal); I25.10 Atherosclerotic heart disease of native coronary artery without angina pectoris; E11.9 Type 2 diabetes mellitus without complications; E78.5 Hyperlipidemia, unspecified; E66.8 Other obesity; Z68.38 Body mass index [BMI] 38.0-38.9, adult; E11.621 Type 2 diabetes mellitus with foot ulcer; L97.508 Non-pressure chronic ulcer of other part of unspecified foot with other specified severity; I11.0 Hypertensive heart disease with heart failure; I50.30 Unspecified diastolic (congestive) heart failure; I70.90 Unspecified atherosclerosis; I25.2 Old myocardial infarction; Z95.5 Presence of coronary angioplasty implant and graft; Z86.718 Personal history of other venous thrombosis and embolism
CPT/HCPCS: 36415; 80053; 82962; 85025; 99282-25; G0378